=== PATIENT | female | born 1935 | race Caucasian/White ===

== ENCOUNTER 2022-10-11 10:00 | Outpatient (RCR) | payer MEDICARE, BC, SELFPAY ==
--- NOTE | 2022-08-06 09:50 | PT.OPEX ---
Please sign PT evaluation completed on 08/06/22. Thank you. PT [place] Out[facility] Eval PT [facility] Outpatient Eval Start: 08/05/22 17:10 Freq: Status: Active Protocol: Document 08/06/22 07:18 TLQ (Rec: 08/06/22 08:35 TLQ [id number]) E-signed By Nae Castro DPT Physical Therapy Outpatient Evaluation Insurance Information Recert Due Date 10/05/22 Insurance Name Medicare B,Blue Cross/Blue [employer] Medical Diagnosis Strain of R hip Tendinitis involving R hip abductors Treating Diagnosis Pain in R hip (M25.551) Muscle weakness (M62.81) Referring MD Barber Subjective Subjective Patient reports she has pain in the side of her R hip that goes around to the back of her hip. Began a couple days ago, denies any specific injury. States she went on a 1.5-2 mile walk last weekend to prepare for her upcoming vacation. Has past hx with back pain due to compression fractures. Her hip seems to feel better after she's been moving around, hurts more after she's been sitting for a prolonged time. Hurts during stairs if it has been bothering her, but does not initiate the pain. Notices the pain if she wakes up during the night, likes to sleep on her R side but hasn't noticed a difference in symptoms between which side she sleeps on. Has tried using a heating pad and Tylenol to help manage her symptoms. Leaves for a 10 -day trip to [facility] next Tuesday, is concerned about her mobility while she's there. In her free time she walking with her walking sticks. Attends a balance class each week. Pain Comments 3/10 at best 8/10 at worst, following sitting for prolonged periods of time gets sudden sharp pain in posterior R hip when she initiates movement, dull ache down lateral thigh on R Date of Last Physician Visit 08/05/22 Current Work Status Retired Preferred Name Brandy Precautions Treatment Precautions/Contraindications order for HEP as patient leaves for [facility] on 08/13/22 Therapy Limitations/Systems Review Not Limited Objective Range of Motion Hip: flexion - L 112, R 124 abduction - WFL bilaterally, pain on R with active abduction external rotation - L 30, R 29 internal rotation - L 30, R 24 Strength Hip: flexion - L 4-/5, R 3+/5 abduction - L 4+/5, R 4/5 sharp pain adduction - L 4/5, R 4/5 external rotation - L 3+/5, R 3/5 internal rotation - L 4+/5, R 4-/5 pain Palpation TTP - R TFL/ITB, R piriformis, R quadratus femoris, mild tenderness at R ischial tuberosity/proximal hamstring Non-tender with palpation of greater trochanter on R Joint mobility - hypomobile posterior glide of R hip Balance & Gait Balance - SLS <1 second on L and R 5xSTS - 14 seconds with hands on knees Gait - antalgic gait, ambulates with walking stick in L hand using step through pattern Posture Symmetrical LE alignment with palpation of ASIS and supine- sit assessment Other/Pertinent Objective RITO - + bilaterally for muscle tightness, no increase in pain on R scour - negative bilaterally Assessment Assessment/Impression Patient is an 87 year old female who presents to physical therapy with acute non-traumatic R hip pain. Upon examination she had decreased hip strength bilaterally, R>L . Hip pain was reproduced with strength testing of the R hip abductors and internal rotators. She was tender with palpation of TFL, IT band, piriformis, and quadratus femoris on the R. Given her report of increased physical activity over the weekend and objective findings during her initial examination, the patient is likely to have a muscle strain of her R hip. Special tests of the hip for labral or skeletal pathology were negative at this time. Patient ambulates with walking stick in her L hand, had impaired single leg balance and transitional strength/ balance indicated by time to complete 5x sit to stand test. At this visit the patient was instructed in pain-free stretches, hip strengthening exercises, and soft tissue massage using a tennis ball to allow her to prevent flare in symptoms during her upcoming trip to [facility]. Given her pain with walking, decreased hip strength, and impaired balance, she will benefit from skilled interventions for safe pain-free mobility. Primary Functional Limitations R hip pain, bilateral hip muscle weakness, pain with walking, pain in hip after prolonged sitting, pain with active R hip abduction Plan of Care Rehabilitation Potential Good Physical Therapy Goals created 08/06/22: STG - Patient will improve gross hip strength to 4/5 to demonstrate positive response to strengthening interventions in 4 weeks. STG - Patient will decrease subjective report of pain from 8/10 to 4/10 to be able to walk up to a half mile in 4 weeks. LTG - Patient will decrease time to complete 5xSTS from 14 seconds to 12 seconds for improved functional LE strength and balance needed for safe mobility in 8 weeks. LTG - Gross hip strength will increase to 5/5 for improved functional strength needed for walking and stair navigation in 8 weeks. LTG - Patient will adhere to HEP to manage symptoms IND at home in 8 weeks. Treatment Plan/Direct Interventions Gait Training,Joint Mobilization,Manual Therapy, Therapeutic Activities, Therapeutic Exercises Frequency/Duration 1x/week 6-8 visits Patient Will Be Discharged From Therapy Completion of LTG(s),Skills Plateau,Independent w/HEP, Independently Progressing Evaluation Billing Untimed Code Treatment Minutes 35 Complexity Low Certification Information Initial Certification Date 08/06/22 Ending Certification Date 10/05/22 Provider Signature Shows Agreement With POC & Medical Necessity Physician Comment/Change Comment or Changes Physician NPI Number #
== END 2022-11-26 09:59 | disposition home or self-care (01) ==
PROVIDERS: Visit Provider Orthopaedic Surgery Sports Medicine
DX: S76.011A Strain of muscle, fascia and tendon of right hip, initial encounter (principal); Z51.89 Encounter for other specified aftercare
CPT/HCPCS: 97110; 97140; 97161

== ENCOUNTER 2022-10-20 09:59 | Outpatient (CLI) | payer MEDICARE, BC, SELFPAY ==
--- NOTE | 2022-10-20 10:15 | MR_ITS ---
[address] [address] Phone:?[phone] Fax:?[phone] Referring Physician Information: Nixon Barber M.D. [address] [facility] [address] Phone:?[phone] Fax:?[phone] Patient:Donald Lee D.O.B:?1935 Sex:?Female Phone:?[phone] [facility] MRN:?[id number] Exam Date:?10/20/2022 ? EXAM: MRI of the RIGHT HIP, without contrast CLINICAL HISTORY: Right hip pain. Evaluate for right hip abductor tendon tear. COMPARISONS: None available. TECHNICAL: MR sequences of the right hip: Axials: PD FS Axial oblique: PD Coronals: PD, T2 Coronal pelvis: T1 and STIR Sagittals: PD and T2 CONTRAST: None SEDATION: None FINDINGS: Pelvis osseous structures: Sacrum: No fracture or destructive osseous lesion is seen of the imaged portions of the sacrum. Sacroiliac joints: No convincing evidence of sacroiliitis of the imaged portions of the sacroiliac joints. Pubic rami: Unremarkable. Symphysis pubis: There is no evidence of acute osteitis pubis. Labrum: There is fraying and ill-defined tearing of the entire labrum. Hip joint: Physiologic amount of joint fluid. There is extensive full-thickness chondral loss at the chondral labral junction posterosuperiorly with associated degenerative subchondral cystic changes and over the superomedial portion of the acetabulum with associated degenerative subchondral cystic changes. Chondral loss is also suspected over the right femoral head although it must be noted that the cartilage is not optimally evaluated directly by this nonarthrogram study. Proximal femur: No fracture, osseous stress injury, avascular necrosis, or suspicious bone marrow signal abnormality is seen. No convincing femoral cam morphology. Right femoral alpha angle measures 46 degrees at the 3 clock position anteriorly measured on axial oblique series 6 image 18. Acetabulum: Coverage: Right lateral center edge (CE) angle measures approximately 41? (normal 25?-39?) correcting for coronal pelvic tilt, midline coronal series 5 image 13. Ligamentum teres: Unremarkable. Myotendinous structures: Gluteus abductors: The gluteus minimus and medius tendons are unremarkable. Rectus abdominis-adductor longus aponeurosis, adductors, and rectus abdominis: Unremarkable. Hamstrings: Chronic partial tearing of the bilateral conjoined hamstring tendons at the ischial tuberosity attachments is bilaterally symmetric and of uncertain clinical significance. Flexors: The iliopsoas and rectus femoris tendons are intact. Quadratus femoris muscle: Marked atrophy. No edema-like signal. The right quadratus femoris space measures 4 mm. Gluteal aponeurotic fascia and IT band: Unremarkable. Pelvic soft tissues: There is sigmoid diverticulosis without evidence of diverticulitis on the images provided. IMPRESSION: 1. Substantial right hip osteoarthritic changes include extensive full-thickness chondral loss at the chondral labral junction posterosuperiorly and over the superomedial portion of the acetabulum with associated degenerative subchondral cystic changes and fraying/ill-defined tearing of the entire labrum. Chondral loss is also suspected over the right femoral head although it must be noted that the cartilage is not optimally evaluated directly by this nonarthrogram study. Right acetabular overcoverage. 2. A markedly decreased right quadratus femoris space can be associated with ischiofemoral impingement but is of uncertain clinical significance in this case given the lack of edema-like signal within and marked atrophy of the right quadratus femoris muscle. 3. Chronic partial tearing of the bilateral conjoined hamstring tendons at the ischial tuberosity attachments is bilaterally symmetric and of uncertain clinical significance. 4. Sigmoid diverticulosis without evidence of diverticulitis. 5. No fracture or osseous stress injury of the right hip. Intact abductor tendons. RCB Electronically signed on 10/22/2022 6:07:00 AM by Osiel Fuentes M.D.
== END 2022-10-20 10:00 | disposition home or self-care (01) ==
PROVIDERS: PCP Family Medicine; Visit Provider Orthopaedic Surgery Sports Medicine
DX: M25.551 Pain in right hip (principal); M16.9 Osteoarthritis of hip, unspecified; K57.31 Diverticulosis of large intestine without perforation or abscess with bleeding; S73.102A Unspecified sprain of left hip, initial encounter
CPT/HCPCS: 73721

== ENCOUNTER 2022-11-04 10:00 | Outpatient (CLI) | payer MEDICARE, BC, SELFPAY ==
--- NOTE | 2022-11-04 10:15 | CRLHL7_ITS ---
For Patients: As a result of the Century Cures Act, medical imaging exams and procedure reports are released immediately into your electronic medical record. You may view this report before your referring provider. If you have questions, please contact your health care provider. Indication: Right hip pain. Procedure : Informed consent was obtained. The site was marked. Time-out was performed. The skin of the right hip was cleansed with ChloraPrep. A sterile drape was placed. 8 cc of 1 percent lidocaine was administered for superficial anesthesia. Subsequently a 22 gauge spinal needle was introduced into the right hip joint under intermittent fluoroscopic guidance. Subsequently 7 cc 1 percent lidocaine and 2 cc 40 milligrams/cc Depo-Medrol injected into the joint. The needle was removed and hemostasis achieved with direct pressure. A dressing was placed. The patient tolerated the procedure well without immediate complication. Total fluoroscopy time 11 seconds. Impression: Successful fluoroscopically guided right hip injection with 80 milligrams Depo-Medrol. Dictated by Dwain Leon MD @ 11/04/2022 11:23:10 AM (Electronically Signed)
== END 2022-11-04 10:01 | disposition home or self-care (01) ==
LOC: RAD 10:00
PROVIDERS: PCP Family Medicine; Visit Provider Orthopaedic Surgery Sports Medicine
DX: M25.551 Pain in right hip (principal); M16.11 Unilateral primary osteoarthritis, right hip; M25.851 Other specified joint disorders, right hip
CPT/HCPCS: 20610; 77002; J1030; Q9966

== ENCOUNTER 2022-12-07 07:44 | Outpatient (CLI) | payer MEDICARE, BC, SELFPAY | END 2022-12-07 07:45 | disposition home or self-care (01) | LOC: INJ CL 07:46 | PROVIDERS: PCP Family Medicine; Visit Provider Family Medicine | DX: M54.16 Radiculopathy, lumbar region (principal); M51.36 Other intervertebral disc degeneration, lumbar region | CPT/HCPCS: 62323; J0702; Q9966 ==

== ENCOUNTER 2023-01-11 07:06 | Outpatient (CLI) | payer MEDICARE, BC, SELFPAY | END 2023-01-11 07:07 | disposition home or self-care (01) | LOC: INJ CL 07:07 | PROVIDERS: PCP Family Medicine; Visit Provider Family Medicine | DX: M54.16 Radiculopathy, lumbar region (principal); M48.05 Spinal stenosis, thoracolumbar region; M51.34 Other intervertebral disc degeneration, thoracic region | CPT/HCPCS: 62323; J0702; Q9966 ==

== ENCOUNTER 2023-03-31 08:45 | Outpatient (RCR) | payer MEDICARE, BC, SELFPAY | END 2023-05-25 09:24 | disposition home or self-care (01) | PROVIDERS: PCP Family Medicine; Visit Provider Family Medicine | DX: M54.50 Low back pain, unspecified (principal); M79.604 Pain in right leg; M51.34 Other intervertebral disc degeneration, thoracic region; R29.3 Abnormal posture; M62.81 Muscle weakness (generalized); Z51.89 Encounter for other specified aftercare | CPT/HCPCS: 97110; 97140; 97161 ==

== ENCOUNTER 2023-07-06 09:42 | Outpatient (CLI) | payer MEDICARE, BC, SELFPAY | END 2023-07-06 09:43 | disposition home or self-care (01) | LOC: CT 09:43 | PROVIDERS: PCP Family Medicine; Visit Provider Orthopaedic Surgery Sports Medicine | DX: M19.011 Primary osteoarthritis, right shoulder (principal); Z01.818 Encounter for other preprocedural examination | CPT/HCPCS: 73200 ==

== ENCOUNTER 2023-08-10 07:09 | Day surgery (SDC) | payer MEDICARE, BC, SELFPAY ==
[2023-08-10] VITALS (24 sets, daily range): BP systolic 113–157; BP diastolic 61–92; PULSE 52–97; RESP 15–18; TEMP 35.8–36.6; O2SAT 92–99; BMI 22.6
[2023-08-10] MEDS: LACTATED RINGERS 1000 ML 1,000 ML 100 ML IV (07:15)
--- NOTE | 2023-08-10 07:40 | W.PM.H&PU ---
History & Physical Update History & Physical Update H&P Reviewed and patient assessed: No changes noted
--- NOTE | 2023-08-10 07:44 | CRLHL7_ITS ---
For Patients: As a result of the Cures Act, medical imaging exams and procedure reports are released immediately into your electronic medical record. You may view this report before your referring provider. If you have questions, please contact your health care provider. Indication: POST OP Technique: Two views right shoulder Findings/Impression: Hardware from a right total shoulder arthroplasty is in satisfactory position. Bone alignment is normal. No sign of acute fracture. Postop changes are within normal limits. Dictated by Dwain Leon MD @ 08/10/2023 12:36:46 PM (Electronically Signed)
[2023-08-10] MEDS: ACETAMINOPHEN 500 MG TABLET 1000 MG PO ×3 (08:08→20:44)
[2023-08-10] MEDS: CELECOXIB 200 MG CAPSULE PO (08:08)
[2023-08-10] MEDS: OXYCODONE (CR) 10 MG TAB.ER.12H PO (08:09)
[2023-08-10] MEDS: SODIUM CHLORIDE 0.9 % (FLUSH) 10 ML SYRINGE IVF (08:10)
[2023-08-10] MEDS: fentaNYL 100 MCG/2 ML inj IVP (08:43)
[2023-08-10] MEDS: MIDAZOLAM HCL 1 MG/ML inj IVP (08:43)
--- NOTE | 2023-08-10 08:47 | P.NB_ITS ---
Nerve Block Nerve Block Time Seen by Provider: 08:45 Date Seen: 08/10/23 Type of block requested by surgeon for post-operative analgesia: supraclavicular Side: right Time out performed: Yes Verification of patient name: Yes Verification of date of : Yes Site marking: site marked Name of person performing procedure: Walker Continuous monitoring Was continuous monitoring of O2 sat, B/P, monitoring engineer, recorded every 15 minutes?: Yes Procedure Checklist: sterile prep, needles and gloves Ultrasound guided. Images saved: Yes Medications given in 5ml increments after negative aspiration: Marcaine %: 0.25 mL: 10 Needle gauge: 22 and Exparel mL: 7 Needle gauge: 22 Patient tolerated procedure well: Yes Block Charges Block Charge (with Pro Fee): Brachial Plexus Use of Ultrasound Machine for Block: Yes- US Guidance/pain block
--- NOTE | 2023-08-10 08:48 | SUR.PREOP ---
TIME?OUT:?0843 PT/RN/MDA?VERIFICATION?OF?SURGICAL?SITE,?PROCEDURE,?AND?CONSENT OBTAINED?PRIOR?TO?INVASIVE?PROCEDURE.
--- NOTE | 2023-08-10 08:48 | W.ANESCHARGE ---
Anesthesia Charges Start Date/Time Anesthesia Start Date: 08/10/23 Anesthesia Start Time: 08:53 Stop Date/Time Anesthesia Stop Date: 08/10/23 Anesthesia Stop Time: 11:30 Summary Extremes of Age - Over 70 or under 1: MDA
[2023-08-10] MEDS: CEFAZOLIN 2 GM in 0.9 % SODIUM CHLORIDE Mini-bag 100 ML IVPB (09:10)
--- NOTE | 2023-08-10 09:43 | SUR.OPER ---
PATIENT QUESTIONS ANSWERED SATISFACTORILY PREOPERATIVELY. PATIENT BROUGHT TO OR #3 PER CART FOLLOWING THE BLOCK. Patient positioned supine on OR #3 bed for the intubation.? Perioperative team wrapped the?left arm in a neutral position on the pt. abdomen with the drawsheet.? Right arm elevated on an IV pole in a padded strap. Final approval of positioning by surgeon.
--- NOTE | 2023-08-10 11:30 | W.ANESCHARGE ---
Anesthesia Charges Start Date/Time Anesthesia Start Date: 08/10/23 Anesthesia Start Time: 08:53 Stop Date/Time Anesthesia Stop Date: 08/10/23 Anesthesia Stop Time: 11:30 Summary Extremes of Age - Over 70 or under 1: NUTRITION SERVICES ASSISTANT
--- NOTE | 2023-08-10 12:15 | SUR.PHASEI ---
patient met discharge criteria per anesthesia
--- NOTE | 2023-08-10 12:19 | P.ORPRC_ITS ---
Procedure Note Date of procedure: 08/10/23 Procedure: PREOPERATIVE DIAGNOSIS: 1. Right shoulder osteoarthrosis, primary, severe 2. Right long head of the biceps tendinopathy and tenosynovitis POSTOPERATIVE DIAGNOSIS: 1. Right shoulder osteoarthrosis, primary, severe with fair to poor cuff tissue quality 2. Right long head of the biceps tendinopathy and tenosynovitis PROCEDURE: 1. Right reverse shoulder arthroplasty. 2. Right long head of biceps open tenodesis SURGEON: Nixon Barber MD. COMMUNICATIONS MAINTAINER: Yung Harrington PA-C; Nevaeh Beltran PA-C - Of note, a skilled executive assistant was critical for this case to aid in patient positioning, tissue retraction, limb manipulation/positioning, retraction for glenoid exposure, which was challenging, awareness and protection of critical structures, and closure. ANESTHESIA: General plus supraclavicular block IMPLANTS: DJ0 surgical Altivate humeral stem size 10 small shell, short with P2 porous coating vitamin E neutral poly small socket insert RSP glenoid base plate P2 porous coating with 3 perimeter locking screws 32 neutral glenosphere with retaining screw COMPLICATIONS: None evident INDICATIONS: The patient is a pleasant 88-year-old female who has experienced severe right shoulder pain and difficulty with use. Workup included imaging which revealed severe osteoarthrosis along with concern for rotator cuff quality. Physical exam was consistent with associated pain. Given the deformity, the dysfunction, and the pain, and failure of nonoperative management, recommendation was made for surgery. DESCRIPTION OF PROCEDURE: Following a thorough discussion of risks, benefits, and alternatives, consent was obtained and the left shoulder was marked. The patient was brought to the operating room and placed supine on the operating table. Induction of anesthesia was undertaken. 1 g IV Ancef and 1 g tranexamic acid was administered within 1 hr of incision preoperatively. Appropriate time-out was performed identifying proper patient, site, and procedure. The operative extremity was prepped and draped in the appropriate sterile fashion using ChloraPrep after the patient was positioned in the lazy beach chair position with head in neutral alignment and all bony prominences well padded. A longitudinal incision was made for deltopectoral approach. Deltoid was retracted laterally. Cephalic vein was identified and retracted laterally as well. The vein was eventually ligated during the procedure. The clavipectoral fascia was identified and divided longitudinally staying lateral to the conjoined tendon / coracoid. The conjoined tendon was protected with a blunt Hohmann. The long head of the biceps tendon was identified and the bicipital sheath released. The upper 1/3 of the pectoralis major was also released from its insertion. The long head of the biceps was tenodesed to the pectoralis m ajor tendon. The remaining proximal tendon tissue was excised. The rotator cuff was inspected and found to have good integrity with the subscapularis but fair integrity with a supraspinatus], and a decision for a reverse shoulder arthroplasty was confirmed. The long head of biceps, of note, was significant flattened, thickened, with abundant tenosynovitis. A subscapularis cuff of tissue was left via tenotomy for later repair with the remaining subscapularis released in a subperiosteal fashion with the Bovie. This was tagged for later repair. The 3 sisters were cauterized. The upper subscapularis was released from the capsule with a curved Best scissors towards the glenoid. The inferior subscapularis was divided from the capsular tissue on its caudal surface with particular caution for the axillary nerve. This was palpated anterior to the subscapularis both prior to and near the finish of the case. Inferior humeral head osteophytes were excised with caution taken throughout the case with regards to the axillary nerve. The humerus was dislocated, and humeral head cut completed. Then a protector plate was applied. We turned our attention to the glenoid. The humerus was retracted posteriorly. The subscap was protected anteriorly and the labrum/long head biceps origin was excised circumferentially. The capsule was released along the anterior and inferior portions of the glenoid cautiously with a Tucker elevator being careful not to penetrate deep. The glenoid had appropriate exposure, and was prepared with the cannulated system with a target of approximately 5-10? of inferior tilt and neutral anteversion (patient had 7 ? of retroversion initially). [Utilizing the match Point 3D printed guide, the guide pin was placed. The 3D printed jig removed and after placing the guide pin, the tap was placed followed by the glenoid reaming. The real base plate was opened, and inserted, and excellent compression/purchase was achieved with the central screw. Peripheral screws were then drilled, measured, and placed. The glenosphere was then placed consistent with the preoperative plan utilizing the above noted glenosphere. After securing the glenosphere with the locking, torque limited screw, attention was turned back to the humerus. A canal finder was placed followed by various reamers by hand. The real humeral stem was then opened and inserted with excellent metaphyseal fit and stability. Trial poly was placed and the shoulder reduced. Excellent reduction and stability achieved with appropriate tension on the conjoined tendon. At this stage, trial implants were removed, and the real implants inserted and the shoulder reduced. A 3 minute Betadine soak was performed followed by a thorough irrigation with normal saline. Subscapularis was repaired with #1 PDS to the cuff of tissue on the lesser tuberosity. Excellent reapproximation of tissue achieved. Hemostasis was found to be appropriate. The deltopectoral interval was reapproximated with 0 Vicryl, subcutaneous and subcuticular closure was then performed with number 2-0 Vicryl and 4-0 Monocryl, respectively. A skilled executive assistant was critical for this case to aid in patient positioning, tissue retraction, limb manipulation/positioning, retraction for glenoid exposure, which was challenging, awareness and protection of critical structures, and closure. PLAN: 1. Sling at all times for the operative upper extremity. 2. AROM of elbow, forearm, wrist, and digits as tolerated. 3. PT/OT consults for education and assistance. 4. Social consult for discharge planning. 5. 23 hr perioperative antibiotics. 6. Early ambulation, and SCDs for DVT prophylaxis. 7. Admit to the hospital for the above 8. Analgesics p.r.n.
--- NOTE | 2023-08-10 13:43 | P.IMCN_ITS ---
Date of Consult Patient: Iván Patient Consult date: 08/10/23 Primary Care Provider: Akila Cerda MD Consult Narrative Reason for consult: Med Narrative: Areli Lee is a 88 year old female who presented to the hospital today for an elective right reverse total shoulder. There were no surgical or anesthetic complications noted during procedure. Patient's H&P reviewed, PCP is Dr. Killian. Past medical history significant for: Essential hypertension, hypothyroidism, allergic rhinitis History of blood clots: No Postoperative plan: Home with , multiple family members close by. Patient is notably a retired RN. Review of Systems Status of ROS: Reports: 10 or more systems reviewed and unremarkable except as noted in History and below [facility] Medical History (Updated 08/10/23 @ 14:13 by Callie Sanchez MD) Sigmoid diverticulosis ?K57.30 - Diverticulosis of large intestine without perforation or abscess without bleeding (ICD-10) Arthritis ?M19.90 - Unspecified osteoarthritis, unspecified site (ICD-10) GERD (gastroesophageal reflux disease) ?K21.9 - Gastro-esophageal reflux disease without esophagitis (ICD-10) Atrial fibrillation ?I48.91 - Unspecified atrial fibrillation (ICD-10) Hypothyroid ?E03.9 - Hypothyroidism, unspecified (ICD-10) Surgical History (Updated 08/10/23 @ 14:16 by Callie Sanchez MD) History of ankle surgery (12/04/92) ?Z98.890 - Other specified postprocedural states (ICD-10) 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) ?Z96.651 - Presence of right artificial knee joint (ICD-10) S/P left unicompartmental knee replacement (08/07/13) ?Z96.652 - Presence of left artificial knee joint (ICD-10) History of surgery on lower extremity (12/04/92) ?Z98.890 - Other specified postprocedural states (ICD-10) 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) ?Z96.612 - Presence of left artificial shoulder joint (ICD-10) Family History Mother Breast cancer Bleeding tendency Father Heart problem Maternal Grandmother Stroke High blood pressure Social History (Reviewed 10/26/22 @ 09:06 by Margy Horn ~ [employer] WORKER, [employer]STRUCTION WORKER) What is your current living situation?: I presently have a place to live In the past 12 months, utilities in danger of being shut off: no In the past 12 mos, have been you worried that your food would run out before you had money to buy more?: never true In the past 12 mos, the food you bought just didn't last and you didn't have money to buy more?: never true Smoking Status: Never smoker Do you use any of these nicotine containing products: None Second hand tobacco smoke exposure: No How often do you have a drink containing alcohol: 4 or more times a week Alcohol type: wine How many standard drinks containing alcohol do you have on a typical day: 1 or 2 How often do you have six or more drinks on one occasion: Never AUDIT-C Alcohol total score: 4 Non-prescribed substance use: denies use How often does anyone, including family, friends and others, physically hurt you : never How often does anyone, including family, friends and others, insult or talk down to you: never How often does anyone, including family, friends and others, threaten you with harm: never How often does anyone, including family, friends and others, scream or curse at you: never Meds Home Medications and Allergies Home Medications Medication Instructions Recorded Confirmed Type cetirizine 10 mg tablet 10 mg PO DAILY PRN 08/05/22 08/10/23 History levothyroxine 75 mcg tablet 75 mcg PO DAILY 08/05/22 08/10/23 History lisinopril 5 mg tablet 5 mg PO HS 08/05/22 08/10/23 History melatonin 5 mg capsule 5 mg PO HS 08/05/22 08/10/23 History metoprolol tartrate 50 mg tablet 50 mg PO BID 08/05/22 08/10/23 History multivitamin 1 tab PO DAILY 08/05/22 08/10/23 History naproxen 250 mg tablet 250 mg PO BID PRN 04/12/23 08/10/23 History omega 3-uob-sjg-fish oil 60 mg-90 1 cap PO BID 04/12/23 08/10/23 History mg-500 mg capsule (Fish Oil) Allergies Allergy/AdvReac Type Severity Reaction Status Date / Time cat dander Allergy Verified 08/10/23 07:32 perfume Allergy Verified 08/10/23 07:32 Exam Narrative: Exam Narrative: GEN: Alert and oriented, nontoxic and appears younger than stated age HEENT: EOMIs bilaterally, no scleral icterus CV: RRR, No concerning murmurs, rubs, or gallops R: LCTA bilaterally without concerning wheezing, air movement adequate Ext: wearing sling on RUE Skin: No concerning skin lesions or rashes on exposed skin Neuro: No focal deficits Psych: Appropriate Const: Vital Signs, click to edit/add: Vital Signs - 24 hr 08/10/23 08:25 08/10/23 08:43 08/10/23 08:45 Temperature 97.7 F Pulse Rate 71 66 60 Pulse Rate [Left P ulse Oximeter] Respiratory Rate 16 16 16 Blood Pressure 138/75 125/70 113/61 Blood Pressure [Le ft Arm] Pulse Oximetry 96 99 99 Oxygen Delivery Tn thod Room Air Nasal Cannula Nasal Cannula Oxygen Flow Rate 2 2 08/10/23 11:28 08/10/23 11:30 08/10/23 11:35 Temperature 97 F L 97 F L 97 F L Pulse Rate 58 L 54 L 56 L Pulse Rate [Left P ulse Oximeter] Respiratory Rate 16 16 17 Blood Pressure 149/88 H 157/81 H 151/82 H Blood Pressure [Le ft Arm] Pulse Oximetry 97 97 94 Oxygen Delivery Me thod Room Air Room Air Room Air Oxygen Flow Rate 08/10/23 11:40 08/10/23 11:45 08/10/23 11:50 Temperature 97 F L 97 F L 97 F L Pulse Rate 61 56 L 66 Pulse Rate [Left P ulse Oximeter] Respiratory Rate 15 16 17 Blood Pressure 133/92 H 145/77 H 153/78 H Blood Pressure [Le ft Arm] Pulse Oximetry 93 94 93 Oxygen Delivery Me thod Room Air Room Air Room Air Oxygen Flow Rate 08/10/23 11:55 08/10/23 12:00 08/10/23 12:10 Temperature 97 F L 97.1 F L 96.5 F L Pulse Rate 57 L 56 L 62 Pulse Rate [Left P ulse Oximeter] Respiratory Rate 16 16 16 Blood Pressure 145/72 H 152/85 H Blood Pressure [Le ft Arm] 129/87 Pulse Oximetry 96 94 Oxygen Delivery Me thod Room Air Room Air Room Air Oxygen Flow Rate 08/10/23 12:15 08/10/23 12:30 08/10/23 12:45 Temperature 96.5 F L 96.4 F L 96.4 F L Pulse Rate Pulse Rate [Left P ulse Oximeter] 64 52 L 53 L Respiratory Rate 16 16 16 Blood Pressure Blood Pressure [Le ft Arm] 138/63 140/69 H 149/71 H Pulse Oximetry 94 94 94 Oxygen Delivery Me thod Room Air Room Air Room Air Oxygen Flow Rate 08/10/23 13:00 08/10/23 13:30 Temperature 96.7 F L 96.4 F L Pulse Rate Pulse Rate [Left P ulse Oximeter] 57 L 60 Respiratory Rate 16 16 Blood Pressure Blood Pressure [Le ft Arm] 123/67 129/65 Pulse Oximetry 95 93 Oxygen Delivery Me thod Room Air Room Air Oxygen Flow Rate Assessment and Plan Assessment and plan (1) History of reverse total replacement of right shoulder joint: Problem comment: - 08/10Elisabeth Status: Acute Plan - pain management and prophylaxis per orthopedic surgery team - continue home medications for comorbidities - anticipate routine postoperative course
--- NOTE | 2023-08-10 13:49 | PC.NURSE ---
Addendum entered by Lacey Roth RN 08/10/23 15:04: Patient up to bathroom with staff assist, voiding without problem, denies nausea or lightheadedness with movement. Original Note: Shift Summary: Patient arrived to floor around noon. Vitals have been stable, o2 sat >90% on RA. Has had applesauce and tolerated well but not ready to order meal yet. Lung sounds clear, dressing over right shoulder dry and intact with ice and sling. Denies pain or nausea.
[2023-08-10] MEDS: CEFAZOLIN 1 GM in 0.9 % SODIUM CHLORIDE Mini-bag 100 ML IVPB ×2 (13:58→22:38)
[2023-08-10] MEDS: lisinopriL 5 MG TABLET PO (20:45)
[2023-08-10] MEDS: MELATONIN 3 MG TABLET PO (20:45)
[2023-08-10] MEDS: SENNOSIDES 1 TAB TABLET 2 TAB PO (20:46)
[2023-08-10] MEDS: CETIRIZINE HCL 10 MG TABLET PO (20:46)
[2023-08-10] MEDS: METOPROLOL TARTRATE 50 MG TABLET PO (20:46)
--- NOTE | 2023-08-10 22:31 | PC.NURSE ---
VSS, RA. Pain ~1-2- ice pack, elevation, pt comfortable. Tolerating regular diet, 100% of dinner- ~ 1000 cc fluids in. Right shoulder in sling- CMS intact. Up to bathroom 1 assist. Voided x3- ~700 cc out. Last BM 08/09 per pt. PIV in left arm- SL'd b/t IV abx. Spouse visited this evening. Will continue to monitor, follow POC, and keep pt and family updated. Nia Larkin RN
[2023-08-11 03:00] VITALS: BP 116/72; PULSE 74; RESP 16; TEMP 36.3; O2SAT 94
--- NOTE | 2023-08-11 05:12 | PC.NURSE ---
[id number] Pt slept well entire night. no new concerns
--- NOTE | 2023-08-11 05:14 | PC.NURSE ---
[id number] Pt slept well between cares, ice to R shoulder throughout night. No pain noted at this time, Pt able to wiggle finger to R hand, still states numbness throughout R arm. R radial pulse present, cap refills <3 seconds, hand warm to touch. ambulating independently to BR, voiding well, tolerating PO intake, No N/V. Dressing to R shoulder C/D/I arm in sling elevated on pillows entire shift.
[2023-08-11] MEDS: CEFAZOLIN 1 GM in 0.9 % SODIUM CHLORIDE Mini-bag 100 ML IVPB (06:35)
[2023-08-11] MEDS: LEVOTHYROXINE 75 MCG TABLET PO (06:35)
[2023-08-11 06:45] LABS: Hematocrit 34.5 % (33.0-51.0); Hemoglobin* 11.5 gm/dL (12.0-16.0); Mean Corpuscular HGB Conc 33 gm/dL (32-36); Mean Corpuscular Hemoglobin 31 pg (26-34); Mean Corpuscular Volume 93 fL (80-100); Platelet Count* 234 K/uL (140-440)
[2023-08-11 07:00] VITALS: BP 130/72; PULSE 76; RESP 18; TEMP 36.9; O2SAT 96
[2023-08-11 07:00] LABS: Potassium* 4.7 mmol/L (3.6-5.1); Sodium* 129 mmol/L (135-149)
[2023-08-11 07:03] LABS: Blood Urea Nitrogen* 23 mg/dL (7-30); Creatinine* 0.9 mg/dL (0.5-1.5); Est. Creatinine Clearance* 33.41; Estimated Glomerular Filt Rate 62 ml/min
[2023-08-11 07:10] LABS: Slide Review Reflex No
[2023-08-11] MEDS: ACETAMINOPHEN 500 MG TABLET 1000 MG PO (08:35)
[2023-08-11] MEDS: METOPROLOL TARTRATE 50 MG TABLET PO (08:36)
[2023-08-11] MEDS: MULTIVITAMIN/MINERALS 1 TABLET 1 TAB PO (08:37)
[2023-08-11] MEDS: SENNOSIDES 1 TAB TABLET 2 TAB PO (08:42)
--- NOTE | 2023-08-11 12:52 | PC.NURSE ---
VSS AND AFEBRILE. RERPORTS NO PAIN AND ONLY RECEIVING SCHEDULED TYLENOL. RIGHT ARM IN SLING. UP WITH SBA AND TOLERATING ACTIVITY WELL. DRESSING CDI. TOLERATING REGULAR DIET WITH NO C/O N/V. REVIEWED DC INSTRUCTIONS WITH PATIENT AND HER . SALINE LOCK DC'D. PATIENT DC'D HOME WITH .
--- NOTE | 2023-08-11 15:43 | PM.ORPN ---
Subjective Subjective Date Seen: 08/11/23 Principal diagnosis: Status postop day 1 right reverse total shoulder arthroplasty Interval history: Patient reports doing well. No acute events over night. Pain managed with scheduled and PRN medications, ice. DVT prophylaxis: Bilateral knee high Bryce stockings, SCDs, walking. Denies fevers, chills, aches, N/V, CP, SOB/MARROQUIN, or lightheadedness. Ortho Exam Narrative Exam Narrative: -Patient appears comfortable in recliner; no apparent acute distress -Alert and oriented times 3 -Operative shoulder mildly swollen; soft, supple tissues; no obvious erythema. Ecchymosis minimal. Warmth appropriate -Surgical dressing clean, dry, intact; no obvious drainage, no erythematous streaking peripheral to the bandage -Bilateral calves soft and supple; no significant swelling, edema, tenderness, erythema, discoloration, warmth, or palpable cords -2+ radial pulse, intact dermatomes and myotomes distally (5/5 strength) Const Vital Signs, click to edit/add: Vital Signs - 24 hr 08/10/23 16:00 08/10/23 17:00 08/10/23 18:00 Temperature 97.5 F L 97.9 F Pulse Rate [Left Pulse Oximeter] 67 84 97 Pulse Rate [Right Radial] Respiratory Rate 16 16 16 Blood Pressure [Left Arm] 139/83 143/75 H 148/86 H Pulse Oximetry 93 92 92 Oxygen Delivery Method Room Air Room Air Room Air Oxygen Flow Rate 08/10/23 19:00 08/10/23 23:00 08/11/23 03:00 Temperature 97.6 F 97.6 F 97.4 F L Pulse Rate [Left Pulse Oximeter] 94 76 Pulse Rate [Right Radial] 74 Respiratory Rate 16 18 16 Blood Pressure [Left Arm] 124/66 136/64 116/72 Pulse Oximetry 92 94 94 Oxygen Delivery Method Room Air Room Air Room Air Oxygen Flow Rate 0 0 08/11/23 07:00 08/11/23 07:00 Temperature 98.4 F Pulse Rate [Left Pulse Oximeter] 76 76 Pulse Rate [Right Radial] Respiratory Rate 18 18 Blood Pressure [Left Arm] 130/72 Pulse Oximetry 96 Oxygen Delivery Method Room Air Oxygen Flow Rate Assessment and Plan Assessment and plan (1) History of reverse total replacement of right shoulder joint: Problem details: - 08/10Elisabeth Status: Acute Plan - Complete 23 hour perioperative antibiotics. - PT/OT consult for education and assistance. - Social work consult for discharge planning - Prescribed analgesics as needed - DVT prophylaxis: Bilateral knee high Bryce Hose stockings and SCDs - Anticipation is for discharge to home with spouse and sister 08/11/2023 if the patient remains medically stable, pain is controlled, and they are safe with mobilization.
== END 2023-08-11 11:00 | disposition home or self-care (01) ==
LOC: OR 07:11 → MEDSURG 07:13
PROVIDERS: PCP Family Medicine; Visit Provider Orthopaedic Surgery Sports Medicine
PROC: 0RRJ0JZ Replacement of Right Shoulder Joint with Synthetic Substitute, Open Approach (ICD-10-PCS; CPT 23472; principal; 2023-08-10 08:30)
DX: M19.011 Primary osteoarthritis, right shoulder (principal); M75.21 Bicipital tendinitis, right shoulder; M65.811 Other synovitis and tenosynovitis, right shoulder; I10 Essential (primary) hypertension; G89.18 Other acute postprocedural pain
CPT/HCPCS: 23472; 23430; 01638; 36415; 64415; 73030; 76942; 82565; 84132; 84295; 84520; 85027; 97116; 97161; 97165; 97535; 99100; A9153; A9270; C1713; C1776; J0330; J0690; J1100; J2250; J2405; J2704; J3010; J7120; L3670

== ENCOUNTER 2023-11-22 09:00 | Outpatient (RCR) | payer MEDICARE, BC, SELFPAY ==
--- NOTE | 2023-08-05 16:21 | OT.OPGNE ---
OT Outpatient General/Neuro Eval OT Outpatient General/Neuro Eval Start: 08/04/23 15:55 Freq: Status: Active Protocol: Document 08/04/23 15:49 SMW (Rec: 08/05/23 16:11 SMW [id number]) E-signed By Fabiola Ty OT OT Outpatient Evaluation Details Type Type Eval Complexity Low Insurance Information Insurance Information Insurance Information Medicare B Outpatient History/Precautions Medical/Functional History Medical History Reviewed Yes Prior Level of Function/Mobility Lives independently with spouse. No AD. Current Condition Treatment Diagnosis M19.011 Social History Type of Dwelling Rambler Home Number of Stairs to Enter (Stairs) 3 Lives With: Spouse Physical Barriers in Home Environment Level, No Step,No Railing Employment Status Retired Oriented Patient Orientation Person,Place,Time,Situation Precautions General Precautions Pt. is left handed Assessment Assessment Assessment The patient is an 88 year old female referred to OT for a RTSA scheduled for 08/10/23. The patient lives with her spouse in rambler style style home. She is independent in all ADLS, IADLS and mobility. Today, she was educated in one handed dressing techniques, sling management, post op exercises. She asked appropriate questions and is an excellent candidate for surgery from a functional standpoint. Occupational Therapy Treatment Plan - OP Potential Rehabilitation Potential Excellent Set Goals Goals Set with Patient Yes Goals Goals Within 1 visit, the patient will be.. 1. educated on one handed techniques for dressing and bathing. goal met 2. sling donning and doffing and wearing schedule. goal met 3. educated on post op exercises and therapy progression. goal met. Progress met Treatment Plan Treatment Plan Evaluation,Therapeutic Exercise,Self-Care/Home Management Certification Certification I Certify That: Therapy Services Provided, Therapy Plan Established, Therapy Plan Reviewed Recertification Information Recertification Information Initial Certification Date 08/04/23 Provider Signature Shows Agreement With POC & Medical Necessity Physician Comment/Change Comment or Changes Physician NPI Number #
--- NOTE | 2023-08-24 13:03 | PT.OPEX ---
PT [place] Outpatient Eval PT [facility] Outpatient Eval Start: 08/24/23 08:55 Freq: Status: Active Protocol: Document 08/24/23 09:01 GUADALUPE (Rec: 08/24/23 12:57 GUADALUPE [id number]) E-signed By Mary Carmen Patel PT Physical Therapy Outpatient Evaluation Insurance Information Recert Due Date 11/21/23 Insurance Name Medicare B,Blue Cross/Blue Shield Medical Diagnosis RIGHT SHOULDER OA M19.01 RIGHT rTSA 08/10/23 Treating Diagnosis RIGHT SHOULDER PAIN M25.511 RIGHT SHOULDER WEAKNESS M62.81 Referring MD BEASLEY Subjective Subjective PATIENT REPORTS, I'VE BEEN USING THE ICE AND TYLENOL MOSTLY. I AM A BIT STRESSED B/ C WE ARE DOWNSIZING AND WE ARE SIFTING THROUGH A LOT OF BOXES. PATIENT FURTHER REPORTS BEING ABLE TO SLEEP IN HER OWN BED WITH A PILLOW TO SUPPORT THE ARM THE WAY GENNY OT INSTRUCTED. SHE IS HAVING NO ISSUES WITH BATHING OR DRESSING AND FOLLOWING HER INSTRUCTION TO WEAR SLING UNLESS BATHING OR DRESSING. Pain Comments -05/07 RIGHT SHOULDER Date of Last Physician Visit 08/18/23 Date of Surgery (If applicable) 08/10/23 Current Work Status Retired Occupation RETIRED RN Preferred Name JANINE Precautions Treatment Precautions/Contraindications OSTEOPOROSIS WITH ACTIVE COMPRESSION FX T10-L1 08/24/23: PROM FOR ONLY UNTIL 4 WEEKS THEN BEGIN AAROM AND WEAN OUT SLING AT 4-6 WEEKS Weight Bearing Status Non-Weight Bearing Therapy Limitations/Systems Review Not Limited Objective Other/Pertinent Objective CERVICAL ROM: WFL SHOULDER PROM IN SUPINE: Flexion: 110 Abduction: 68 Internal Rotation: @45 10 External Rotation: @45 NEUTRAL JOINT MOBILITY/PALPATION: MIN TENDERNESS ABOUT THE ANTERIOR TO LATERAL JOINT TX: ELBOW FLEX /EXT WRIST AROM PENDULUM ABD/ADD, FLEX/EXT GENTLE BACKWARD [place] GENTLE SCAP ENGAGEMENT PROM Assessment Assessment/Impression PATIENT IS AN [address] 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 SHE HAS LIMITED NEED FOR ICE OR RX PAIN MEDS CURRENTLY HER SYMPTOMS ARE WELL MANAGED WITH TYLENOL AND ALEVE. PATIENT HAS HAD ONE F/U WITH DEANNA THOMAS ON 08/18/23 NOTING GOOD HEALING AND CLEARED TO BEGIN FORMAL PHYSICAL THERAPY. SHE IS PROM ONLY UNTIL 4 WEEKS THEN WE CAN BEGIN AAROM AND START WEANING OUT OF SLING . WE DISCUSSED THE rTSA PRECAUTIONS TODAY, SYMPTOM MGMT, AND REVIEWED COMPENSATORY MVMTS FOR BASIC ADL'S. PATIENT IS APPROPRIATE FOR SKILLED PHYSICAL THERAPY FOR SYMPTOM MGMT, ROM AND STRENGTHENING PER PROTOCOL TO ALLOW HER A FULL RETURN TO PLOF. Primary Functional Limitations ADL'S IADL'S USE OF RIGHT UE Plan of Care Rehabilitation Potential Excellent Physical Therapy Goals IN 4-6 WEEKS: 1. PATIENT WILL DEMONSTRATE RIGHT SHOULD PROM TO WFL'S ( EXCEPT S'ER) 2. PATIENT WILL BE INDEPENDENT WITH ALL ADLS AND RETURN TO LIGHT CORRECTIONAL PROBATION OFFICER/COOKING 3. PATIENT WILL VERBALIZE A GOOD UNDERSTANDING OF HER PRECAUTIONS WELL SYMPTOM MGMT. 4. PATIENT WILL REPORT </2/10 PAIN DURING DAILY ACTIVITIES WELL TO ALLOW FOR PROGRESSION OF HER HEP. IN 10-12 WEEKS 1. PATIENT WILL DEMONSTRATE AROM TO WFL ALLOW INDEPENDENCE WITH DAILY ACTIVITIES/ PEER AND FAMILY CENTERED ACTIVITIES 2. PATIENT WILL DEMONSTRATE IMPROVED STRENGTH TO WFL TO RETURN TO HER PLOF. 3. PATIENT WILL DEMONSTRATE INDEPENDENCE WITH HEP AND THE ABILITY TO PROGRESS. Coordination/Communication With Referral Source Treatment Plan/Direct Interventions Electrical Stimulation,Heat, Ice/Cold/Vasopneumatic,Joint Mobilization,Manual Therapy, Neuromuscular Re-ed, Therapeutic Activities, Therapeutic Exercises Patient Will Be Discharged From Therapy Completion of LTG(s), Independently Progressing Discharge Plan Comments DISCHARGE TO SELF WHEN GOALS MET Evaluation Billing Untimed Code Treatment Minutes 15 PT Eval No Charge No Complexity Moderate Certification Information Initial Certification Date 08/24/23 Ending Certification Date 11/21/23 Provider Signature Shows Agreement With POC & Medical Necessity Physician Signature & Date Requested Please Sign/Date Here Physician Comment/Change : Physician NPI Number #
== END 2024-02-07 10:14 | disposition home or self-care (01) ==
PROVIDERS: PCP Family Medicine; Visit Provider Orthopaedic Surgery Sports Medicine
DX: M19.011 Primary osteoarthritis, right shoulder (principal); Z96.611 Presence of right artificial shoulder joint; M25.511 Pain in right shoulder; Z74.09 Other reduced mobility; R29.898 Other symptoms and signs involving the musculoskeletal system; Z51.89 Encounter for other specified aftercare
CPT/HCPCS: 97110; 97140; 97162; 97165; 97535; X5282

== ENCOUNTER 2023-12-16 21:11 | Inpatient (IN) | payer MEDICARE, BC, SELFPAY ==
[2023-12-16] VITALS (18 sets, daily range): BP systolic 122–160; BP diastolic 67–86; PULSE 83–108; RESP 16; TEMP 36.6; O2SAT 84–98
--- NOTE | 2023-12-16 21:43 | CRLHL7_ITS ---
For Patients: As a result of the Century Cures Act, medical imaging exams and procedure reports are released immediately into your electronic medical record. You may view this report before your referring provider. If you have questions, please contact your health care provider. INDICATION: Question bowel obstruction. TECHNIQUE: CT of the abdomen and pelvis acquired with 64 cc Isovue 370 IV contrast. Coronal and sagittal reconstructions. COMPARISON: CT of the abdomen and pelvis 02/28/2022. FINDINGS: Liver: Normal in size and attenuation. Stable small hepatic cyst. Hepatic and portal veins are patent. Gallbladder and bile ducts: Unremarkable. No biliary dilation. Spleen: Unremarkable. Pancreas: Unremarkable. Adrenal glands: Unremarkable. Kidneys, Ureters, and Bladder: Symmetric enhancement. No hydronephrosis or ureteral dilation. No obstructing urinary calculi identified. No bladder wall thickening. Reproductive structures: Uterus is unremarkable. Stable 1.4 cm left adnexal cyst which is likely benign (series 2, image 81). GI tract/Peritoneum: There are multiple dilated fluid-filled loops of mid small bowel compatible with obstruction. Small bowel anastomosis in the left lower quadrant where there is swirling and narrowing of loops with two potential transition points (series 2 images [id number] and series 4 images 40-50). Proximal and distal small bowel loops are decompressed. Fecalized material within loops near the anastomosis. Findings may represent a closed loop obstruction. The cecum appears displaced into the mid abdomen which is new since prior exam. Negative appendix. Mesenteric edema and interloop free fluid in the right abdomen. No intraperitoneal free air. No definite pneumatosis. Vasculature: Abdominal aorta is normal in caliber. Aortoiliac vascular calcifications. Mesenteric arteries are patent. Lymph nodes: No lymphadenopathy. Abdominal wall: Small bilateral fat containing inguinal hernias. Bones: Degenerative changes of the spine. Chronic compression fractures of T10, T11, and L1. Lower chest: Unremarkable. IMPRESSION: Mid small bowel obstruction with transition points in the left lower quadrant near the anastomosis where there is swirling of bowel loops. This may represent a closed loop obstruction. Associated mesenteric edema. Surgical consult is recommended. Please note that all CT scans at this facility use dose modulation, iterative reconstruction, and/or weight-based dosing when appropriate to reduce radiation dose to as low as reasonably achievable. Dictated by Camille Galvez MD @ 12/16/2023 11:38:21 PM (Electronically Signed)
[2023-12-16 22:01] LABS: Lactate* 1.1 mmol/L (0.5-1.9)
[2023-12-16 22:02] LABS: Basophils Percent Auto 0.2 % (0.0-3.0); Eosinophils Percent Auto 1.4 % (0.0-7.0); Hematocrit 39.9 % (33.0-51.0); Hemoglobin* 13.1 gm/dL (12.0-16.0); Immature Granulocytes Pct Auto 0.2 %; Lymphocytes Percent Auto 3.9 % (20-44); Mean Corpuscular HGB Conc 33 gm/dL (32-36); Mean Corpuscular Hemoglobin 31 pg (26-34); Mean Corpuscular Volume 94 fL (80-100); Monocytes Percent Auto 6.1 % (0.0-11.0); Neutrophils Percent Auto 88.2 % (42.0-72.0); Platelet Count* 272 K/uL (140-440); RDW Coefficient of Variation % 14.3 % (11.5-15.5); Red Blood Count 4.24 m/uL (4.00-5.20); White Blood Count* 13.05 K/uL (4.50-11.00)
--- NOTE | 2023-12-16 22:07 | ED_ITS ---
HPI - Abdominal Pain General Date Seen: 12/16/23 Chief Complaint: Abdominal Pain Stated Complaint: Abdominal Pain and Nausea Time Seen by Provider: 12/16/23 21:15 Source: patient and family Mode of arrival: ambulatory Limitations: no limitations History of Present Illness HPI narrative: Patient is a retired 88-year-old female, who presents here with her with abdominal pain since approximately noon today, this is associated with nausea and a couple episodes of vomiting. She has also had a couple hard stools but is not passing any gas and progressively more distended. This is worrying for her because she has had 2 previous bowel obstructions, 1 here in 2020, and another when she when she was on a trip in 2021 in [facility]. Both required laparotomy. She denies any fevers chills or sweats cough cold-like symptoms, did not take any medications for this, denies any significant intake of alcohol, retired nurse from our hospital. Denies any dysuria frequency, no blood in her vomitus. MD elicited complaint: abdominal pain Onset (ago): hour(s) (Eight) Pain Consistency: constant and colicky Location: diffuse Severity: moderate Quality: cramping, stabbing and fullness Radiation: none Migration to: no migration Exacerbating factors: movement Relieving factors: nothing Context: history of similar episodes Associated symptoms: nausea and vomiting Related Data Patient : No Home Medications Medication Instructions Recorded Confirmed cetirizine 10 mg tablet 10 mg PO DAILY PRN 08/05/22 09/23/23 levothyroxine 75 mcg tablet 75 mcg PO DAILY 08/05/22 09/23/23 lisinopril 5 mg tablet 5 mg PO HS 08/05/22 09/23/23 melatonin 5 mg capsule 5 mg PO HS 08/05/22 09/23/23 metoprolol tartrate 50 mg tablet 50 mg PO BID 08/05/22 09/23/23 multivitamin 1 tab PO DAILY 08/05/22 09/23/23 naproxen 250 mg tablet 250 mg PO BID PRN 04/12/23 09/23/23 omega 8-eve-cqg-fish oil 60 mg-90 1 cap PO BID 04/12/23 09/23/23 mg-500 mg capsule (Fish Oil) calcium carbonate 500 mg calcium 500 mg PO QDAY 09/23/23 09/23/23 (1,250 mg) chewable tablet (Calcium 500) Previous Rx's Medication Instructions Recorded acetaminophen 500 mg capsule 500 - 1,000 mg (1 - 2 x 500 mg) PO 08/11/23 Q8H PRN #100 caps amoxicillin 500 mg capsule 2,000 mg (4 x 500 mg) PO ONCE #4 11/22/23 caps Allergies Allergy/AdvReac Type Severity Reaction Status Date / Time cat dander Allergy Verified 09/23/23 08:54 perfume Allergy Verified 09/23/23 08:54 Review of Systems Status of ROS Reports: 10 or more systems reviewed and unremarkable except as noted in History and below [facility] Medical History Small bowel obstruction ?K56.609 - Unspecified intestinal obstruction, unspecified as to partial versus complete obstruction (ICD-10) Postoperative ileus ?K91.89 - Other postprocedural complications and disorders of digestive system (ICD-10) ?K56.7 - Ileus, unspecified (ICD-10) Postoperative hypoxia ?R09.02 - Hypoxemia (ICD-10) ?Z98.890 - Other specified postprocedural states (ICD-10) Anemia following surgery ?D64.9 - Anemia, unspecified (ICD-10) Strain of right hip ?S76.011A - Strain of muscle, fascia and tendon of right hip, initial encounter (ICD-10) Sigmoid diverticulosis ?K57.30 - Diverticulosis of large intestine without perforation or abscess without bleeding (ICD-10) Arthritis ?M19.90 - Unspecified osteoarthritis, unspecified site (ICD-10) GERD (gastroesophageal reflux disease) ?K21.9 - Gastro-esophageal reflux disease without esophagitis (ICD-10) Atrial fibrillation ?I48.91 - Unspecified atrial fibrillation (ICD-10) Hypothyroid ?E03.9 - Hypothyroidism, unspecified (ICD-10) Surgical History 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) ?Z98.890 - Other specified postprocedural states (ICD-10) History of ankle surgery (12/04/92) ?Z98.890 - Other specified postprocedural states (ICD-10) 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) ?Z96.651 - Presence of right artificial knee joint (ICD-10) S/P left unicompartmental knee replacement (08/07/13) ?Z96.652 - Presence of left artificial knee joint (ICD-10) History of surgery on lower extremity (12/04/92) ?Z98.890 - Other specified postprocedural states (ICD-10) 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) ?Z96.612 - Presence of left artificial shoulder joint (ICD-10) Family History Mother Breast cancer Bleeding tendency Father Heart problem Maternal Grandmother Stroke High blood pressure Social History What is your current living situation?: I presently have a place to live In the past 12 months, utilities in danger of being shut off: no In past 12 months, lack of transportation kept you from medical appts, meetings, work, or getting things needed for daily living: no In the past 12 mos, have been you worried that your food would run out before you had money to buy more?: never true In the past 12 mos, the food you bought just didn't last and you didn't have money to buy more?: never true Smoking Status: Never smoker Do you use any of these nicotine containing products: None Second hand tobacco smoke exposure: No How often do you have a drink containing alcohol: 4 or more times a week Alcohol type: wine How many standard drinks containing alcohol do you have on a typical day: 1 or 2 How often do you have six or more drinks on one occasion: Never AUDIT-C Alcohol total score: 4 Non-prescribed substance use: denies use How often does anyone, including family, friends and others, physically hurt you : never How often does anyone, including family, friends and others, insult or talk down to you: never How often does anyone, including family, friends and others, threaten you with harm: never How often does anyone, including family, friends and others, scream or curse at you: never Exam Narrative: Exam Narrative: Patient is seen in room 5 she is in no apparent distress pleasant very nice lady. Her pupils equal round reactive to light there is no scleral icterus or redness TMs bilaterally normal her oropharynx is normal her neck is supple full range of motion, chest is good air entry bilaterally with no wheezing crackles noted easy respirations heart sounds show no clicks or gallops, she does however have a murmur 2 to 3/6 over her apex, with radiation to her left axilla. I suspect that this is mitral stenosis abdomen is diffusely enlarged, tympanic, occasional bowel sounds are noted, throughout all. Scars from previous surgery are noted. Nose significant peritoneal signs are noted. Extremities are all normal no edema swelling, conjunctivae well perfused, and no icterus Const: Vital Signs, click to edit/add: Vital Signs - 24 hr 12/16/23 21:21 12/16/23 21:24 12/16/23 21:25 Temperature 97.8 F Pulse Rate 96 96 Pulse Rate [Left P ulse Oximeter] 94 Respiratory Rate 16 Blood Pressure 160/86 H Blood Pressure [Ri ght Upper Arm] 160/86 H Pulse Oximetry 98 94 [facility] 12/16/23 21:30 12/16/23 21:32 12/16/23 21:45 Temperature Pulse Rate 87 87 88 Pulse Rate [Left P ulse Oximeter] Respiratory Rate Blood Pressure 160/76 H Blood Pressure [Ri ght Upper Arm] Pulse Oximetry 96 95 96 Oxygen Delivery Me thod 12/16/23 22:14 12/16/23 22:15 12/16/23 22:30 Temperature Pulse Rate 90 93 84 Pulse Rate [Left P ulse Oximeter] Respiratory Rate Blood Pressure Blood Pressure [Ri ght Upper Arm] Pulse Oximetry 97 95 87 L [facility] 12/16/23 22:31 12/16/23 22:32 12/16/23 22:58 Temperature Pulse Rate 83 87 96 Pulse Rate [Left P ulse Oximeter] Respiratory Rate Blood Pressure 122/67 Blood Pressure [Ri ght Upper Arm] Pulse Oximetry 88 84 L 95 Oxygen Delivery Me thod 12/16/23 23:00 12/16/23 23:03 12/16/23 23:15 Temperature Pulse Rate 99 96 108 H Pulse Rate [Left P ulse Oximeter] Respiratory Rate Blood Pressure 133/68 Blood Pressure [Ri ght Upper Arm] Pulse Oximetry 95 96 98 Oxygen Delivery Me thod 12/16/23 23:30 12/16/23 23:32 12/16/23 23:45 Temperature Pulse Rate 93 90 Pulse Rate [Left P ulse Oximeter] Respiratory Rate Blood Pressure 152/79 H Blood Pressure [Ri ght Upper Arm] Pulse Oximetry 84 L 92 91 Oxygen Delivery Me thod 12/17/23 00:00 12/17/23 00:01 12/17/23 00:01 Temperature Pulse Rate 96 94 94 Pulse Rate [Left P ulse Oximeter] Respiratory Rate Blood Pressure 150/77 H 150/77 H Blood Pressure [Ri ght Upper Arm] Pulse Oximetry 94 94 94 Oxygen Delivery Me thod 12/17/23 00:01 12/17/23 00:01 Temperature Pulse Rate 94 94 Pulse Rate [Left P ulse Oximeter] Respiratory Rate Blood Pressure 150/77 H 150/77 H Blood Pressure [Ri ght Upper Arm] Pulse Oximetry 94 94 Oxygen Delivery Me thod Documenting provider has reviewed patient's vital signs: yes Course Reevaluation(s) Time of Reevaluation #1: 23:19 Reevaluation #1: Patient is no longer vomiting, but I did review the CT scan which shows marked evidence of a bowel obstruction, small bowel, with decompression of her colon, there is a lot of fluid in her stomach, and proximal small bowel so I would recommend NG tube, and once we get the read I will speak to the surgeon. She will need admission, fluids, and bowel rest. Post NG tube, x-ray looks like it is in good position. Time of Reevaluation #2: 00:24 Reevaluation #2: Spoke to Dr. Flores , she reviewed the CT scan with the radiologist, there is some swirling this looks like it is mesenteric in the left lower quadrant, this is worrisome, but her lactate is normal, I went back in and examined the patient her pain if anything is markedly improved her distension is markedly improved and she was sleeping, she tells me she feels much improved, and I discussed with her the findings on CT. At this point she is non tachycardic normal lactic acid pains improved and she has drained over 600 mL from her NG tube. I think admitting her overnight is a reasonable thing and she is also in agreement with this, is seeing how much she improves, and then repeating her lactic acid in a few hours care. I did talk to the hospitalist who will admit her to the hospital and maximize her medical care at this point. was on for Hospital Medicine, Consultations Consultation #1: Dr. Flores general surgery Time: 23:57 Vital Signs Vital signs: Initial Vital Signs Temperature 97.8 F 12/16/23 21:21 Temperature Source Temporal Artery Scan 12/16/23 21:21 Pulse Rate 94 12/16/23 21:21 Pulse Rhythm Regular 12/16/23 21:21 Respiratory Rate 16 12/16/23 21:21 Blood Pressure 160/86 H 12/16/23 21:21 Blood Pressure Mean 110 H 12/16/23 21:21 Blood Pressure Position Semi-Fowlers 12/16/23 21:21 Pulse Oximetry 98 12/16/23 21:21 Oxygen Delivery Method Room Air 12/16/23 21:21 Vital Signs Temperature 97.8 F 12/16/23 21:21 Pulse Rate 94 12/16/23 21:21 Respiratory Rate 16 12/16/23 21:21 Blood Pressure 160/86 H 12/16/23 21:21 Pulse Oximetry 98 12/16/23 21:21 Oxygen Delivery Method Room Air 12/16/23 21:21 Temperature 97.8 F 12/16/23 21:21 Pulse Rate 94 12/17/23 00:01 Respiratory Rate 16 12/16/23 21:21 Blood Pressure 150/77 H 12/17/23 00:01 Pulse Oximetry 94 12/17/23 00:01 Oxygen Delivery Method Room Air 12/16/23 21:21 Medications Administered Medications: Discontinued Medications Generic Name Dose Route Start Last Admin Trade Name Freq PRN Reason Stop Dose Admin Sodium Chloride 1,000 mls @ 1,000 mls/hr 12/16/23 21:45 12/16/23 23:58 0.9 % Sodium Chloride 1000 Ml IV 12/16/23 22:44 Infused .Q1H [place] Infusion Morphine Sulfate 4 mg 12/16/23 21:42 12/16/23 22:24 Morphine 4 Mg/Ml Inj IVP 12/16/23 21:43 4 mg ONCE ONE Administration Ondansetron HCl 4 mg 12/16/23 21:42 12/16/23 22:25 Ondansetron 2 Mg/Ml Inj IVP 12/16/23 21:43 4 mg ONCE ONE Administration MDM - Abdominal Pain MDM Narrative Medical decision making narrative: During the evaluation of this patient I considered multiple differential diagnosis including life-threatening differentials which are appendicitis, aor tic aneurysm, mesenteric ischemia, bowel perforation, ectopic , volvulus and bowel obstruction, other differential diagnosis include but are not limited to inflammatory bowel disease, cholecystitis, pancreatitis, hepatitis, gastritis, GERD, diverticulitis, peptic ulcer disease, pyelonephritis/UTI, renal colic/stone, pelvic inflammatory disease, cervicitis, endometritis, intrauterine , dysfunctional uterine bleeding, ovarian cyst/torsion, spontaneous as well as other etiologies Medical Records Attestation: I reviewed the patient's medical records. Lab Data Attestation: I reviewed the patient's lab results. Labs: Lab Results 12/16/23 12/16/23 12/16/23 Range/Units 21:43 21:50 22:05 WBC 13.05 H (4.50-11.00) K/uL RBC 4.24 (4.00-5.20) m/uL Hgb 13.1 (12.0-16.0) gm/dL Hct 39.9 (33.0-51.0) % MCV 94 (80-100) fL MCH 31 (26-34) pg MCHC 33 (32-36) gm/dL RDW Coeff of [place] 14.3 (11.5-15.5) % Plt Count 272 (140-440) K/uL Neut % (Auto) 88.2 H (42.0-72.0) % Lymph % (Auto) 3.9 L (20-44) % [place] % (Auto) 6.1 (0.0-11.0) % Eos % (Auto) 1.4 (0.0-7.0) % Baso % (Auto) 0.2 (0.0-3.0) % Neut # (Auto) 11.50 H (1.7-7.0) K/uL Lymph # (Auto) 0.50 L (0.90-2.90) K/uL [place] # (Auto) 0.80 (0.00-0.90) K/UL Eos # (Auto) 0.20 (0.00-0.50) K/uL Baso # (Auto) 0.00 (0.00-0.30) K/uL Abs Immat Gran (auto) 0.00 (0.00-0.30) K/uL Imm/Tot Granulo (auto) 0.2 % Sodium 129 L (135-149) mmol/L Potassium 4.2 (3.6-5.1) mmol/L Chloride 95 L (96-114) mmol/L Carbon Dioxide 25 (20-32) mmol/L Anion Gap 9 (7-15) mEq/L BUN 28 (7-30) mg/dL Creatinine 0.7 (0.5-1.5) mg/dL Estimated GFR 84 ml/min Glucose 160 H (60-115) mg/dL Lactate 1.1 (0.5-1.9) mmol/L Calcium 10.4 (8.4-10.6) mg/dL Total Bilirubin 0.9 (0.1-1.5) mg/dL Direct Bilirubin 0.1 (0.0-0.5) mg/dL AST 36 H (12-35) U/L ALT 26 (4-35) U/L Alkaline Phosphatase 84 (40-150) U/L C-Reactive Protein 0.5 (0.5-1.0) mg/dL Total Protein 7.7 (6.0-8.3) g/dL Albumin 4.5 (3.3-5.0) g/dL Amylase 110 H (18-89) U/L Lipase 93 (23-300) U/L Urine Color Yellow (Yellow) Urine Appearance Clear (Clear) Urine pH 6.0 (5.0-8.5) Ur Specific [place] 1.025 (1.000-1.030) Urine Protein Negative (Negative) Urine Glucose (UA) Negative (Negative) Urine Ketones 2+ A (Negative) Urine Blood Trace-intact A (Negative) Urine Nitrite Positive A (Negative) Urine Bilirubin Negative (Negative) Urine Urobilinogen 0.2 (0.2-1.0) Ur Leukocyte Esterase Negative (Negative) Urine RBC 0-2 (0-2) Urine WBC 5-10 A (0-5) Ur Squamous Epith Cells None (None-Few) Urine Bacteria Many A (None) SARS-CoV-2 (PCR) Negative SARS-CoV-2 (Negative) Influenza Type A (PCR) Negative PCR FLU A (Negative) Influenza Type B (PCR) Negative PCR FLU B (Negative) RSV (PCR) Negative PCR RSV (Negative) POC Troponin I 0.00 L (0.01-0.04) ng/ml WBC year white count is elevated, and hemoglobin however is normal, sodium is slightly low also. Which may be contributing. Urine shows looks like a little bit of a bladder infection also, negative COVID influenza, and troponin was r eassuring. Imaging Data CT scan - abdomen: Attestation: I have reviewed the pertinent imaging results. My impression: CT scan shows distended small bowel and also stomach, distal large bowel is decompressed, assessment small-bowel obstruction Radiologist's impression: Patient: [facility] Facility:?[facility] Patient ID:?[id number] Site Patient ID:?[id number]. Site :?[id number] Study:?CT Abdomen/Pelvis W/ISOVUE 370 64CC-12/16/2023 11:00:22 PM Ordering Physician:Vesna Valentine Final Report: INDICATION: Question bowel obstruction. TECHNIQUE: CT of the abdomen and pelvis acquired with 64 cc Isovue 370 IV contrast. Coronal and sagittal reconstructions. COMPARISON: CT of the abdomen and pelvis 02/28/2022. FINDINGS: Liver: Normal in size and attenuation. Stable small hepatic cyst. Hepatic and portal veins are patent. Gallbladder and bile ducts: Unremarkable. No biliary dilation. Spleen: Unremarkable. Pancreas: Unremarkable. Adrenal glands: Unremarkable. Kidneys, Ureters, and Bladder: Symmetric enhancement. No hydronephrosis or ureteral dilation. No obstructing urinary calculi identified. No bladder wall thickening. Reproductive structures: Uterus is unremarkable. Stable 1.4 cm left adnexal cyst which is likely benign (series 2, image 81). GI tract/Peritoneum: There are multiple dilated fluid-filled loops of mid small bowel compatible with obstruction. Small bowel anastomosis in the left lower quadrant where there is swirling and narrowing of loops with two potential transition points (series 2 images 63-73 and series 4 images 40-50). Proximal and distal small bowel loops are decompressed. Fecalized material within loops near the anastomosis. Findings may represent a closed loop obstruction. The cecum appears displaced into the mid abdomen which is new since prior exam. Negative appendix. Mesenteric edema and interloop free fluid in the right abdomen. No intraperitoneal free air. No definite pneumatosis. Vasculature: Abdominal aorta is normal in caliber. Aortoiliac vascular calcifi cations. Mesenteric arteries are patent. Lymph nodes: No lymphadenopathy. Abdominal wall: Small bilateral fat containing inguinal hernias. Bones: Degenerative changes of the spine. Chronic compression fractures of T10, T11, and L1. Lower chest: Unremarkable. IMPRESSION: Mid small bowel obstruction with transition points in the left lower quadrant near the anastomosis where there is swirling of bowel loops. This may represent a closed loop obstruction. Associated mesenteric edema. Surgical consult is recommended. Please note that all CT scans at this facility use dose modulation, iterative reconstruction, and/or weight-based dosing when appropriate to reduce radiation dose to as low as reasonably achievable. Dictated by Camille Galvez MD @ 12/16/2023 11:38:21 PM (Electronic Signature) ECG Data Attestation: I personally reviewed and interpreted this ECG as follows: ECG interpretation date: 12/16/23 Ischemic changes: other (Left bundle-branch block, ventricular rate is 94, patient is in sinus rhythm, when compared to old EKG from 2021, left bundle was there then) Discharge Plan Discharge Clinical Impression: Complete obstruction of small intestine, Abdominal pain, Acute hyponatremia, Urinary tract infection Patient Disposition: Admitted As Observation Activity Level: No strenuous activity Discharge Diet: Other Diet Detail: npo Prescriptions: No Action omega 6-ook-aqf-fish oil [Fish Oil] 60-90-500 mg capsule 1 cap PO BID naproxen 250 mg tablet 250 mg PO BID PRN calcium carbonate [Calcium 500] 500 mg calcium (1,250 mg) tablet,chewable 500 mg PO QDAY levothyroxine 75 mcg tablet 75 mcg PO DAILY metoprolol tartrate 50 mg tablet 50 mg PO BID Patient Comments: TAKE 1 TABLET BY MOUTH 2 TIMES DAILY lisinopril 5 mg tablet 5 mg PO HS cetirizine 10 mg tablet 10 mg PO DAILY PRN multivitamin Tablet 1 tab PO DAILY melatonin 5 mg capsule 5 mg PO HS acetaminophen 500 mg capsule 500 - 1,000 mg PO Q8H MDD 3000mg PRNQty: 100 0RF amoxicillin 500 mg capsule 2,000 mg PO ONCE Qty: 4 3RF Rx Instructions: Take all 4 capsules, 1 hour prior to dental appointment Follow Up/Referrals: PrashantAkila nicholson MD [Primary Care Provider] -
[2023-12-16 22:14] LABS: Slide Review Reflex No
[2023-12-16 22:16] LABS: Albumin* 4.5 g/dL (3.3-5.0); Chloride* 95 mmol/L (96-114); Sodium* 129 mmol/L (135-149)
[2023-12-16 22:17] LABS: Potassium* 4.2 mmol/L (3.6-5.1)
[2023-12-16 22:19] LABS: Amylase* 110 U/L (18-89); Creatinine* 0.7 mg/dL (0.5-1.5); Estimated Glomerular Filt Rate 84 ml/min
[2023-12-16 22:20] LABS: Alanine Aminotransferase* 26 U/L (4-35); Alkaline Phosphatase* 84 U/L (40-150); Anion Gap 9 mEq/L (7-15); Aspartate Amino Transferase* 36 U/L (12-35); Bilirubin Direct* 0.1 mg/dL (0.0-0.5); Bilirubin Total* 0.9 mg/dL (0.1-1.5); Calcium* 10.4 mg/dL (8.4-10.6); Carbon Dioxide* 25 mmol/L (20-32); Glucose* 160 mg/dL (60-115); Lipase* 93 U/L (23-300); Total Protein* 7.7 g/dL (6.0-8.3)
[2023-12-16 22:22] LABS: Appearance Urine Clear (Clear); Bilirubin Urine Negative (Negative); Blood Urine Trace-intact (Negative); Color Urine Yellow (Yellow); Glucose Urine Negative (Negative); Ketones Urine 2+ (Negative); Leukocyte Esterase Urine Negative (Negative); Nitrite Urine Positive (Negative); Protein Urine Negative (Negative); Specific Gravity Urine 1.025 (1.000-1.030); Urobilinogen Urine 0.2 (0.2-1.0)
[2023-12-16 22:23] LABS: C Reactive Protein* 0.5 mg/dL (0.5-1.0)
[2023-12-16] MEDS: MORPHINE 4 MG/ML INJ IVP (22:24)
[2023-12-16] MEDS: ONDANSETRON 2 MG/ML inj 4 MG IVP (22:25)
[2023-12-16] MEDS: 0.9 % SODIUM CHLORIDE 1000 ml 1,000 ML IV (22:25)
[2023-12-16 22:40] LABS: Bacteria Urine Many; RBC Urine 0-2 (0-2)
--- NOTE | 2023-12-16 22:48 | ED.NURSE ---
Patient's IV did not work while in CT and will not flush. Started new IV in left AC, 20 G. Will d/c right AC IV when she returns. Patient tolerated the procedure well.
[2023-12-16 22:55] LABS: PCR FLU A Negative PCR FLU A (Negative); PCR FLU B Negative PCR FLU B (Negative); PCR RSV Negative PCR RSV (Negative); SARS PCR* Negative SARS-CoV-2 (Negative)
--- NOTE | 2023-12-16 23:23 | ED.NURSE ---
NG tube inserted in right nare without complication. Advanced to 60 cm malena. Obtained approximately 600 cc clear/brown stomach contents, and patient states she feels less nauseated. Suction is to LIS. Secured at nose and on shirt with pin. Chest XRay to be ordered to confirm placement.
--- NOTE | 2023-12-16 23:27 | CRLHL7_ITS ---
For Patients: As a result of the Century Cures Act, medical imaging exams and procedure reports are released immediately into your electronic medical record. You may view this report before your referring provider. If you have questions, please contact your health care provider. INDICATION: NG tube placement. TECHNIQUE: Chest 1 view. COMPARISON: None. FINDINGS: Cardiovascular and mediastinum: Heart size and vasculature are normal in caliber and appearance. Aortic atherosclerotic calcifications. NG tube tip projects over the proximal stomach with the side port near the GE junction. Lungs and pleural spaces: Lungs are clear. No sign of infiltrate or mass. No sign of pleural effusion. No pneumothorax. Bones and soft tissues: Bilateral shoulder arthroplasty. Partially visualized distended bowel loops. IMPRESSION: NG tube tip projects over the proximal stomach with the side port near the GE junction. Dictated by Zan Aviles MD @ 12/17/2023 12:31:01 AM (Electronically Signed)
[2023-12-16 23:32] LABS: Blood Urea Nitrogen* 28 mg/dL (7-30)
[2023-12-17] VITALS (16 sets, daily range): BP systolic 107–150; BP diastolic 67–94; PULSE 85–113; RESP 14–20; TEMP 36.6–37.2; O2SAT 89–96; BMI 23.2
--- NOTE | 2023-12-17 00:09 | PM.EN ---
Chart Event Note Chart Event Note: CAlled in consultation by Dr. Stewart regarding this patient who has a history of SBO X3 since 2020. In 2020 she develped a small bowel obstruction (surgical history of tubal ligation) that did not resolve with conservative management and she underwent laparotomy and small bowel resection. She later developed an additional SBO in [facility] and was treated there with surgery after a failed gastrograffin challenge - lysis of adhesions was performed. In February 2022, she again developed a small bowel obstruction and was managed conservatively - there was a mesenteric swirl noted. She presents with pain, nausea and vomiting which began today. CT shows mesenteric swirling again with more remarkable distension than CT from 2021. Discussed this with the radiologist. No signs of bowel ischemia though transition points are noted with mesenteric edema. The patient is noted to have a WBC of 13. She is hyponatremic but lactate normal. NG was placed and patient had marked improvement in symptoms. CT findings are concerning; however, she has now had two surgeries within 3 years for bowel obstruction and has been managed conservatively previously with mesenteric swirling noted on CT - for now, as long as her pain has improved, will plan on NG decompression and rechecking lactate in 2 hours. If worsening pain, tachycardia, or lactate increasing, will plan on exploration overnight. Otherwise, will re-evaluate patient in the morning and recheck labs. if exam is benign will consider gastrograffin challenge.
[2023-12-17] MEDS: CEFAZOLIN 1 GM inj IVP (00:51)
[2023-12-17] MEDS: 0.9 % SODIUM CHLORIDE 1000 ml 1,000 ML 125 ML IV (00:51)
--- NOTE | 2023-12-17 01:18 | PM.IMHP1 ---
Hospitalist- H&P: HPI History of Present Illness Date Seen: 12/17/23 Chief complaint: Abdominal Pain and Nausea Narrative: Areli Lee is a 88 year old female [facility] Medical History Small bowel obstruction ?K56.609 - Unspecified intestinal obstruction, unspecified as to partial versus complete obstruction (ICD-10) Postoperative ileus ?K91.89 - Other postprocedural complications and disorders of digestive system (ICD-10) ?K56.7 - Ileus, unspecified (ICD-10) Postoperative hypoxia ?R09.02 - Hypoxemia (ICD-10) ?Z98.890 - Other specified postprocedural states (ICD-10) Anemia following surgery ?D64.9 - Anemia, unspecified (ICD-10) Strain of right hip ?S76.011A - Strain of muscle, fascia and tendon of right hip, initial encounter (ICD-10) Sigmoid diverticulosis ?K57.30 - Diverticulosis of large intestine without perforation or abscess without bleeding (ICD-10) Arthritis ?M19.90 - Unspecified osteoarthritis, unspecified site (ICD-10) GERD (gastroesophageal reflux disease) ?K21.9 - Gastro-esophageal reflux disease without esophagitis (ICD-10) Atrial fibrillation ?I48.91 - Unspecified atrial fibrillation (ICD-10) Hypothyroid ?E03.9 - Hypothyroidism, unspecified (ICD-10) Surgical History 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) ?Z98.890 - Other specified postprocedural states (ICD-10) History of ankle surgery (12/04/92) ?Z98.890 - Other specified postprocedural states (ICD-10) 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) ?Z96.651 - Presence of right artificial knee joint (ICD-10) S/P left unicompartmental knee replacement (08/07/13) ?Z96.652 - Presence of left artificial knee joint (ICD-10) History of surgery on lower extremity (12/04/92) ?Z98.890 - Other specified postprocedural states (ICD-10) 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) ?Z96.612 - Presence of left artificial shoulder joint (ICD-10) Family History Mother Breast cancer Bleeding tendency Father Heart problem Maternal Grandmother Stroke High blood pressure Social History What is your current living situation?: I presently have a place to live In the past 12 months, utilities in danger of being shut off: no In past 12 months, lack of transportation kept you from medical appts, meetings, work, or getting things needed for daily living: no In the past 12 mos, have been you worried that your food would run out before you had money to buy more?: never true In the past 12 mos, the food you bought just didn't last and you didn't have money to buy more?: never true Smoking Status: Never smoker Do you use any of these nicotine containing products: None Second hand tobacco smoke exposure: No How often do you have a drink containing alcohol: 4 or more times a week Alcohol type: wine How many standard drinks containing alcohol do you have on a typical day: 1 or 2 How often do you have six or more drinks on one occasion: Never AUDIT-C Alcohol total score: 4 Non-prescribed substance use: denies use How often does anyone, including family, friends and others, physically hurt you: never How often does anyone, including family, friends and others, insult or talk down to you: never How often does anyone, including family, friends and others, threaten you with harm: never How often does anyone, including family, friends and others, scream or curse at you: never Meds Home Medications and Allergies Home Medications Medication Instructions Recorded Confirmed Type cetirizine 10 mg tablet 10 mg PO DAILY PRN 08/05/22 09/23/23 History levothyroxine 75 mcg tablet 75 mcg PO DAILY 08/05/22 09/23/23 History lisinopril 5 mg tablet 5 mg PO HS 08/05/22 09/23/23 History melatonin 5 mg capsule 5 mg PO HS 08/05/22 09/23/23 History metoprolol tartrate 50 mg tablet 50 mg PO BID 08/05/22 09/23/23 History multivitamin 1 tab PO DAILY 08/05/22 09/23/23 History naproxen 250 mg tablet 250 mg PO BID PRN 04/12/23 09/23/23 History omega 2-hag-prk-fish oil 60 mg-90 1 cap PO BID 04/12/23 09/23/23 History mg-500 mg capsule (Fish Oil) calcium carbonate 500 mg calcium 500 mg PO QDAY 09/23/23 09/23/23 History (1,250 mg) chewable tablet (Calcium 500) Allergies Allergy/AdvReac Type Severity Reaction Status Date / Time cat dander Allergy Verified 09/23/23 08:54 perfume Allergy Verified 09/23/23 08:54 Exam Const: Vital Signs, click to edit/add: Vital Signs - 24 hr 12/16/23 21:21 12/16/23 21:24 12/16/23 21:25 Temperature 97.8 F Pulse Rate 96 96 Pulse Rate [Left P ulse Oximeter] 94 Respiratory Rate 16 Blood Pressure 160/86 H Blood Pressure [Ri ght Upper Arm] 160/86 H Pulse Oximetry 98 94 [facility] 12/16/23 21:30 12/16/23 21:32 12/16/23 21:45 Temperature Pulse Rate 87 87 88 Pulse Rate [Left P ulse Oximeter] Respiratory Rate Blood Pressure 160/76 H Blood Pressure [Ri ght Upper Arm] Pulse Oximetry 96 95 96 [facility] 12/16/23 22:14 12/16/23 22:15 12/16/23 22:30 Temperature Pulse Rate 90 93 84 Pulse Rate [Left P ulse Oximeter] Respiratory Rate Blood Pressure Blood Pressure [Ri ght Upper Arm] Pulse Oximetry 97 95 87 L [facility] 12/16/23 22:31 12/16/23 22:32 12/16/23 22:58 Temperature Pulse Rate 83 87 96 Pulse Rate [Left P ulse Oximeter] Respiratory Rate Blood Pressure 122/67 Blood Pressure [Ri ght Upper Arm] Pulse Oximetry 88 84 L 95 [facility] 12/16/23 23:00 12/16/23 23:03 12/16/23 23:15 Temperature Pulse Rate 99 96 108 H Pulse Rate [Left P ulse Oximeter] Respiratory Rate Blood Pressure 133/68 Blood Pressure [Ri ght Upper Arm] Pulse Oximetry 95 96 98 [facility] 12/16/23 23:30 12/16/23 23:32 12/16/23 23:45 Temperature Pulse Rate 93 90 Pulse Rate [Left P ulse Oximeter] Respiratory Rate Blood Pressure 152/79 H Blood Pressure [Ri ght Upper Arm] Pulse Oximetry 84 L 92 91 [facility] 12/17/23 00:00 12/17/23 00:01 12/17/23 00:01 Temperature Pulse Rate 96 94 94 Pulse Rate [Left P ulse Oximeter] Respiratory Rate Blood Pressure 150/77 H 150/77 H Blood Pressure [Ri ght Upper Arm] Pulse Oximetry 94 94 94 [facility] 12/17/23 00:01 12/17/23 00:01 12/17/23 00:02 Temperature Pulse Rate 94 94 93 Pulse Rate [Left P ulse Oximeter] Respiratory Rate Blood Pressure 150/77 H 150/77 H Blood Pressure [Ri ght Upper Arm] Pulse Oximetry 94 94 93 Oxygen Delivery [facility] 12/17/23 00:15 12/17/23 00:30 12/17/23 00:31 Temperature Pulse Rate 93 91 90 Pulse Rate [Left P ulse Oximeter] Respiratory Rate Blood Pressure 130/94 H Blood Pressure [Ri ght Upper Arm] Pulse Oximetry 94 89 91 [facility] 12/17/23 00:45 Temperature Pulse Rate 96 Pulse Rate [Left P ulse Oximeter] Respiratory Rate Blood Pressure Blood Pressure [Ri ght Upper Arm] Pulse Oximetry 91 Oxygen Delivery [facility] Hospitalist - H&P: Result Labs Labs: Short CBC 12/16/23 Range/Units 21:50 WBC 13.05 H (4.50-11.00) K/uL Hgb 13.1 (12.0-16.0) gm/dL Hct 39.9 (33.0-51.0) % Plt Count 272 (140-440) K/uL BMP 12/16/23 21:50 Sodium 129 L Potassium 4.2 Chloride 95 L Carbon Dioxide 25 BUN 28 Creatinine 0.7 Glucose 160 H Calcium 10.4 Liver Function 12/16/23 Range/Units 21:50 Total Bilirubin 0.9 (0.1-1.5) mg/dL Direct Bilirubin 0.1 (0.0-0.5) mg/dL AST 36 H (12-35) U/L ALT 26 (4-35) U/L Alkaline Phosphatase 84 (40-150) U/L Albumin 4.5 (3.3-5.0) g/dL Urine 12/16/23 Range/Units 22:05 Urine Color Yellow (Yellow) Urine Appearance Clear (Clear) Urine pH 6.0 (5.0-8.5) Ur Specific [place] 1.025 (1.000-1.030) Urine Protein Negative (Negative) Urine Glucose (UA) Negative (Negative) Assessment and Plan Assessment and plan (1) Abdominal pain: Status: Acute (2) Complete obstruction of small intestine: Status: Acute (3) Acute hyponatremia: Status: Acute (4) Leukocytosis: Status: Acute (5) Hypertension: Status: Acute
--- NOTE | 2023-12-17 01:21 | W.PM.TELEH&P ---
Telehealth- H&P: HPI History of Present Illness Date Seen: 12/17/23 Chief complaint: Abdominal Pain and Nausea Narrative: Areli Lee is seen as an Interactive Telehealth visit. Areli Lee is a 88 year old male who has a past medical history notable for chronic hyponatremia, hypertension, hypothyroidism,recurrent small bowel obstruction who presented for evaluation of worsening abdominal discomfort similar to previous episodes of small bowel obstruction. Of note she has had several small bowel obstructions several requiring surgery. She had a bowel movement on the day of admission, she was tolerating her diet normally until around noon when she developed abdominal distention and pain. The pain was 6-7 out of 10 in severity. She stopped passing gas. She had retching but no vomiting. She did not have any fevers or chills. She came into the ER as she felt the symptoms were similar to previous small bowel obstructions. In the ER she was noted to have a small bowel obstruction on CT imaging. She had hyponatremia and mild leukocytosis. General surgery was called and reviewed the imaging and recommended admission to medicine with NG tube placement with formal general surgery consult in the a.[facility] Medical History Small bowel obstruction ?K56.609 - Unspecified intestinal obstruction, unspecified as to partial versus complete obstruction (ICD-10) Postoperative ileus ?K91.89 - Other postprocedural complications and disorders of digestive system (ICD-10) ?K56.7 - Ileus, unspecified (ICD-10) Postoperative hypoxia ?R09.02 - Hypoxemia (ICD-10) ?Z98.890 - Other specified postprocedural states (ICD-10) Anemia following surgery ?D64.9 - Anemia, unspecified (ICD-10) Strain of right hip ?S76.011A - Strain of muscle, fascia and tendon of right hip, initial encounter (ICD-10) Sigmoid diverticulosis ?K57.30 - Diverticulosis of large intestine without perforation or abscess without bleeding (ICD-10) Arthritis ?M19.90 - Unspecified osteoarthritis, unspecified site (ICD-10) GERD (gastroesophageal reflux disease) ?K21.9 - Gastro-esophageal reflux disease without esophagitis (ICD-10) Atrial fibrillation ?I48.91 - Unspecified atrial fibrillation (ICD-10) Hypothyroid ?E03.9 - Hypothyroidism, unspecified (ICD-10) Surgical History 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) ?Z98.890 - Other specified postprocedural states (ICD-10) History of ankle surgery (12/04/92) ?Z98.890 - Other specified postprocedural states (ICD-10) 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) ?Z96.651 - Presence of right artificial knee joint (ICD-10) S/P left unicompartmental knee replacement (08/07/13) ?Z96.652 - Presence of left artificial knee joint (ICD-10) History of surgery on lower extremity (12/04/92) ?Z98.890 - Other specified postprocedural states (ICD-10) 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) ?Z96.612 - Presence of left artificial shoulder joint (ICD-10) Family History Mother Breast cancer Bleeding tendency Father Heart problem Maternal Grandmother Stroke High blood pressure Social History What is your current living situation?: I presently have a place to live In the past 12 months, utilities in danger of being shut off: no In past 12 months, lack of transportation kept you from medical appts, meetings, work, or getting things needed for daily living: no In the past 12 mos, have been you worried that your food would run out before you had money to buy more?: never true In the past 12 mos, the food you bought just didn't last and you didn't have money to buy more?: never true Smoking Status: Never smoker Do you use any of these nicotine containing products: None Second hand tobacco smoke exposure: No How often do you have a drink containing alcohol: 4 or more times a week Alcohol type: wine How many standard drinks containing alcohol do you have on a typical day: 1 or 2 How often do you have six or more drinks on one occasion: Never AUDIT-C Alcohol total score: 4 Non-prescribed substance use: denies use How often does anyone, including family, friends and others, physically hurt you: never How often does anyone, including family, friends and others, insult or talk down to you: never How often does anyone, including family, friends and others, threaten you with harm: never How often does anyone, including family, friends and others, scream or curse at you: never Meds Home Medications and Allergies Home Medications Medication Instructions Recorded Confirmed Type cetirizine 10 mg tablet 10 mg PO DAILY PRN 08/05/22 09/23/23 History levothyroxine 75 mcg tablet 75 mcg PO DAILY 08/05/22 09/23/23 History lisinopril 5 mg tablet 5 mg PO HS 08/05/22 09/23/23 History melatonin 5 mg capsule 5 mg PO HS 08/05/22 09/23/23 History metoprolol tartrate 50 mg tablet 50 mg PO BID 08/05/22 09/23/23 History multivitamin 1 tab PO DAILY 08/05/22 09/23/23 History naproxen 250 mg tablet 250 mg PO BID PRN 04/12/23 09/23/23 History omega 9-fjn-yff-fish oil 60 mg-90 1 cap PO BID 04/12/23 09/23/23 History mg-500 mg capsule (Fish Oil) calcium carbonate 500 mg calcium 500 mg PO QDAY 09/23/23 09/23/23 History (1,250 mg) chewable tablet (Calcium 500) Allergies Allergy/AdvReac Type Severity Reaction Status Date / Time cat dander Allergy Verified 09/23/23 08:54 perfume Allergy Verified 09/23/23 08:54 Exam Narrative Exam Narrative: Physical Exam GENERAL: ?vital signs reviewed, well developed and nourished, in no distress HEENT: pupils are equal round and reactive to light, extraocular movements are grossly within normal limits and oral mucosa is moist. NECK: Supple without lymphadenopathy or thyromegaly according to nursing staff examination observation HEART: Regular rate and rhythm without any rubs, murmurs, or gallops. LUNGS: Clear to auscultation bilaterally with good air movement throughout ABDOMEN: Observation from nurse assisted exam, abdomen appears soft, nontender, and nondistended with Positive bowel sounds noted. EXTREMITIES: Strength and sensation is observed to be grossly within normal limits in the upper and lower extremities.? No focal strength deficit is observed. SKIN:? Observed warm and dry with color normal Const Vital Signs, click to edit/add: Vital Signs - 24 hr 12/16/23 21:21 12/16/23 21:24 12/16/23 21:25 Temperature 97.8 F Pulse Rate 96 96 Pulse Rate [Left Pulse Oximeter] 94 Respiratory Rate 16 Blood Pressure 160/86 H Blood Pressure [Right Upper Arm] 160/86 H Pulse Oximetry 98 94 97 Oxygen Delivery Method Room Air 12/16/23 21:30 12/16/23 21:32 12/16/23 21:45 Temperature Pulse Rate 87 87 88 Pulse Rate [Left Pulse Oximeter] Respiratory Rate Blood Pressure 160/76 H Blood Pressure [Right Upper Arm] Pulse Oximetry 96 95 96 Oxygen Delivery Method 12/16/23 22:14 12/16/23 22:15 12/16/23 22:30 Temperature Pulse Rate 90 93 84 Pulse Rate [Left Pulse Oximeter] Respiratory Rate Blood Pressure Blood Pressure [Right Upper Arm] Pulse Oximetry 97 95 87 L Oxygen Delivery Method 12/16/23 22:31 12/16/23 22:32 12/16/23 22:58 Temperature Pulse Rate 83 87 96 Pulse Rate [Left Pulse Oximeter] Respiratory Rate Blood Pressure 122/67 Blood Pressure [Right Upper Arm] Pulse Oximetry 88 84 L 95 Oxygen Delivery Method 12/16/23 23:00 12/16/23 23:03 12/16/23 23:15 Temperature Pulse Rate 99 96 108 H Pulse Rate [Left Pulse Oximeter] Respiratory Rate Blood Pressure 133/68 Blood Pressure [Right Upper Arm] Pulse Oximetry 95 96 98 Oxygen Delivery Method 12/16/23 23:30 12/16/23 23:32 12/16/23 23:45 Temperature Pulse Rate 93 90 Pulse Rate [Left Pulse Oximeter] Respiratory Rate Blood Pressure 152/79 H Blood Pressure [Right Upper Arm] Pulse Oximetry 84 L 92 91 Oxygen Delivery Method 12/17/23 00:00 12/17/23 00:01 12/17/23 00:01 Temperature Pulse Rate 96 94 94 Pulse Rate [Left Pulse Oximeter] Respiratory Rate Blood Pressure 150/77 H 150/77 H Blood Pressure [Right Upper Arm] Pulse Oximetry 94 94 94 Oxygen Delivery Method 12/17/23 00:01 12/17/23 00:01 12/17/23 00:02 Temperature Pulse Rate 94 94 93 Pulse Rate [Left Pulse Oximeter] Respiratory Rate Blood Pressure 150/77 H 150/77 H Blood Pressure [Right Upper Arm] Pulse Oximetry 94 94 93 Oxygen Delivery Method 12/17/23 00:15 12/17/23 00:30 12/17/23 00:31 Temperature Pulse Rate 93 91 90 Pulse Rate [Left Pulse Oximeter] Respiratory Rate Blood Pressure 130/94 H Blood Pressure [Right Upper Arm] Pulse Oximetry 94 89 91 Oxygen Delivery Method 12/17/23 00:45 Temperature Pulse Rate 96 Pulse Rate [Left Pulse Oximeter] Respiratory Rate Blood Pressure Blood Pressure [Right Upper Arm] Pulse Oximetry 91 Oxygen Delivery Method Hospitalist - H&P: Result Labs Labs: Short CBC 12/16/23 Range/Units 21:50 WBC 13.05 H (4.50-11.00) K/uL Hgb 13.1 (12.0-16.0) gm/dL Hct 39.9 (33.0-51.0) % Plt Count 272 (140-440) K/uL BMP 12/16/23 21:50 Sodium 129 L Potassium 4.2 Chloride 95 L Carbon Dioxide 25 BUN 28 Creatinine 0.7 Glucose 160 H Calcium 10.4 Liver Function 12/16/23 Range/Units 21:50 Total Bilirubin 0.9 (0.1-1.5) mg/dL Direct Bilirubin 0.1 (0.0-0.5) mg/dL AST 36 H (12-35) U/L ALT 26 (4-35) U/L Alkaline Phosphatase 84 (40-150) U/L Albumin 4.5 (3.3-5.0) g/dL Urine 12/16/23 Range/Units 22:05 Urine Color Yellow (Yellow) Urine Appearance Clear (Clear) Urine pH 6.0 (5.0-8.5) Ur Specific [place] 1.025 (1.000-1.030) Urine Protein Negative (Negative) Urine Glucose (UA) Negative (Negative) Assessment and Plan Assessment and plan (1) Leukocytosis: Status: Acute (2) Abdominal pain: Status: Acute (3) Complete obstruction of small intestine: Status: Acute (4) Hypertension: Status: Acute (5) Hyponatremia: Status: Acute Plan Small bowel obstruction History of small bowel obstruction, has needed surgical intervention in the past ER reviewed case with on-call general surgery, recommended NG tube, repeat lactate Hold chemoprophylaxis for DVT in case patient requires OR Hyponatremia Appears to be chronic Goal correction not more than 6 mEq in 24 hours Sodium 129, start with LR at 100 mL/h recheck sodium at 3:30 AM Leukocytosis Likely reactive Low threshold to start antibiotics if any clinical changes History of atrial fibrillation Single episode Is on chronic beta-blockade Will use IV metoprolol 10 mg every 6 hours as replacement for oral Hypothyroidism Hold levothyroxine for now, Switch to IV if prolonged n.p.o. status Hypertension Hold lisinopril due to risk of perioperative hypotension Full code confirmed on admission Telehealth: Statement Statement Telehealth Visit: Today's History and Physical is provided via interactive telehealth by Dominic Robles MD.? Patient is located at [facility].? Provider is located at [facility].? Nursing staff assisted with the patient's exam. The visit being done today meets criteria for a telehealth visit and the patient or patient?s parent/guardian is aware the visit is a telehealth visit. Camera Start Time: 01:30 Camera End Time: 01:40
[2023-12-17 02:09] LABS: Lactate* 0.8 mmol/L (0.5-1.9)
[2023-12-17 02:11] LABS: Basophils Percent Auto 0.1 % (0.0-3.0); Eosinophils Percent Auto 0.3 % (0.0-7.0); Hemoglobin* 13.1 gm/dL (12.0-16.0); Lymphocytes Percent Auto 2.5 % (20-44); Mean Corpuscular HGB Conc 33 gm/dL (32-36); Mean Corpuscular Hemoglobin 31 pg (26-34); Mean Corpuscular Volume 95 fL (80-100); Monocytes Percent Auto 5.7 % (0.0-11.0); Neutrophils Percent Auto 90.4 % (42.0-72.0); Platelet Count* 275 K/uL (140-440); RDW Coefficient of Variation % 14.5 % (11.5-15.5); Red Blood Count 4.23 m/uL (4.00-5.20); White Blood Count* 13.09 K/uL (4.50-11.00)
[2023-12-17 02:16] LABS: Slide Review Reflex No
[2023-12-17 02:29] LABS: Chloride* 98 mmol/L (96-114); Potassium* 4.5 mmol/L (3.6-5.1); Sodium* 133 mmol/L (135-149)
[2023-12-17 02:32] LABS: Anion Gap 9 mEq/L (7-15); Blood Urea Nitrogen* 23 mg/dL (7-30); Carbon Dioxide* 26 mmol/L (20-32); Creatinine* 0.7 mg/dL (0.5-1.5); Estimated Glomerular Filt Rate 84 ml/min
[2023-12-17 02:33] LABS: Calcium* 9.9 mg/dL (8.4-10.6); Glucose* 139 mg/dL (60-115)
[2023-12-17] MEDS: METOPROLOL TARTRATE 1 MG/ML inj 10 MG IVP ×4 (03:17→21:36)
--- NOTE | 2023-12-17 07:04 | PC.NURSE ---
Admitted to unit a t0100 with dx of abdominal pain, bowel obstruction. NG placed in ER, patent and to intermittent suction, 50cc output over shift. Alert and oriented x 4. Pain to abdomen rated at 1-2/10, pain is tolerable for patient. Ambulates independently, continent of bladder and bowel. Abdomen is firm and distended, denies any pain with palpation. Bowel sounds hypoactive to all quadrants.
--- NOTE | 2023-12-17 08:41 | PM.GSCN ---
History of Present Illness Consult details Date Seen: 12/17/23 Consult date: 12/17/23 Narrative: The patient is an 88-year-old female who presented to the emergency room last evening with abdominal pain and vomiting. She states that yesterday she was feeling fine and went to [facility] event and 8. Around mid day she developed pain in her mid abdomen. She then was significantly nauseated and retching. She states that the pain was a 6 to 7/10. She tried taking Tums and switching to a clear liquid diet, however she tried to eat broth in the evening and could not finish it. She came into the hospital and was found to have a bowel obstruction on CT scan. An NG was placed and she felt significantly better. 500 mL were out. She had a bowel movement yesterday. This was small. She has not been passing any gas. She has not had any fevers. She feels much better but has been belching. Her pain is now a 1 to 2/10 if at all. Lies over her history is that of in 2020 she presented to a hospital near her [facility] [place] with a bowel obstruction. She was managed they were conservatively and failed to resolve. 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 Pathology showed this possibly secondary to intussusception. She was doing fine however in February of 2022 she was again admitted with a small-bowel obstruction. He walks she was managed non operatively and resolved within 1 day. For him over in July 2022 she was traveling in [facility] and developed a bowel obstruction again. She had a Gastrografin challenge and failed this. She underwent laparotomy in [facility] with lysis of adhesions. After we she does not have her records, however she knows that they did not resect any bowel. She has been doing fine until yesterday. The patient states she is rebound tachycardia when she has not taken her metoprolol. She states she did take it yesterday morning. [facility] Medical History (Updated 12/17/23 @ 09:02 by Nevaeh Flores MD) Small bowel obstruction ?K56.609 - Unspecified intestinal obstruction, unspecified as to partial versus complete obstruction (ICD-10) Postoperative ileus ?K91.89 - Other postprocedural complications and disorders of digestive system (ICD-10) ?K56.7 - Ileus, unspecified (ICD-10) Postoperative hypoxia ?R09.02 - Hypoxemia (ICD-10) ?Z98.890 - Other specified postprocedural states (ICD-10) Anemia following surgery ?D64.9 - Anemia, unspecified (ICD-10) Strain of right hip ?S76.011A - Strain of muscle, fascia and tendon of right hip, initial encounter (ICD-10) Sigmoid diverticulosis ?K57.30 - Diverticulosis of large intestine without perforation or abscess without bleeding (ICD-10) Arthritis ?M19.90 - Unspecified osteoarthritis, unspecified site (ICD-10) GERD (gastroesophageal reflux disease) ?K21.9 - Gastro-esophageal reflux disease without esophagitis (ICD-10) Atrial fibrillation ?I48.91 - Unspecified atrial fibrillation (ICD-10) Hypothyroid ?E03.9 - Hypothyroidism, unspecified (ICD-10) Surgical History (Updated 12/17/23 @ 08:57 by Nevaeh Flores MD) S/P laparotomy with lysis of adhesions ?Z98.890 - Other specified postprocedural states (ICD-10) 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) ?Z98.890 - Other specified postprocedural states (ICD-10) History of ankle surgery (12/04/92) ?Z98.890 - Other specified postprocedural states (ICD-10) 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) ?Z96.651 - Presence of right artificial knee joint (ICD-10) S/P left unicompartmental knee replacement (08/07/13) ?Z96.652 - Presence of left artificial knee joint (ICD-10) History of surgery on lower extremity (12/04/92) ?Z98.890 - Other specified postprocedural states (ICD-10) 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 She lives in [place] with her . She does not smoke. She drinks 1 glass of wine a day. What is your current living situation?: I presently have a place to live Problems where you live: no known problems Problems where you live details: NA In the past 12 months, utilities in danger of being shut off: no In past 12 months, lack of transportation kept you from medical appts, meetings, work, or getting things needed for daily living: no In the past 12 mos, have been you worried that your food would run out before you had money to buy more?: never true In the past 12 mos, the food you bought just didn't last and you didn't have money to buy more?: never true Highest level of school completed/degree received: Associate degree: occupational, technical, vocational program Smoking Status: Former smoker What tobacco products do you use: cigarettes Smoking quit date/years: >15 years ago Do you use any of these nicotine containing products: None Second hand tobacco smoke exposure: No How often do you have a drink containing alcohol: 4 or more times a week Alcohol type: wine Alcohol type details: daily glass of wine How many standard drinks containing alcohol do you have on a typical day: 1 or 2 How often do you have six or more drinks on one occasion: Never AUDIT-C Alcohol total score: 4 Non-prescribed substance use: denies use Caffeine: Yes How often does anyone, including family, friends and others, physically hurt you: never How often does anyone, including family, friends and others, insult or talk down to you: never How often does anyone, including family, friends and others, threaten you with harm: never How often does anyone, including family, friends and others, scream or curse at you: never service: No Meds Home Medications and Allergies Home Medications Medication Instructions Recorded Confirmed Type cetirizine 10 mg tablet 10 mg PO DAILY PRN 08/05/22 09/23/23 History levothyroxine 75 mcg tablet 75 mcg PO DAILY 08/05/22 12/17/23 History lisinopril 5 mg tablet 5 mg PO HS 08/05/22 12/17/23 History melatonin 5 mg capsule 5 mg PO HS 08/05/22 09/23/23 History metoprolol tartrate 50 mg tablet 50 mg PO BID 08/05/22 12/17/23 History multivitamin 1 tab PO DAILY 08/05/22 09/23/23 History naproxen 250 mg tablet 250 mg PO BID PRN 04/12/23 09/23/23 History omega [id number] oil 60 mg-90 1 cap PO BID 04/12/23 09/23/23 History mg-500 mg capsule (Fish Oil) calcium carbonate 500 mg calcium 500 mg PO QDAY 09/23/23 09/23/23 History (1,250 mg) chewable tablet (Calcium 500) Allergies Allergy/AdvReac Type Severity Reaction Status Date / Time cat dander Allergy Verified 09/23/23 08:54 perfume Allergy Verified 09/23/23 08:54 Exam Narrative: Exam Narrative: General appearance: Alert, cooperative, and in no distress Eyes: PERRLA, eye lids clear, and sclera white HENT Head: Normocephalic Ears: External ears normal NG with minimal clear output. Pulmonary: Breathing nonlabored on room air Cardiovascular Heart: Mildly tachycardic with a heart rate of 101 Extremities: warm and well perfused Gastrointestinal Abdominal: Soft minimally tender. Distended. Scar noted from prior surgeries. No guarding or rebound. Musculoskeletal: Extremities: Upper: Both upper extremities have normal joint range of motion and intact strength. Lower: Both lower extremities have normal joint range of motion and intact strength. Skin: Normal skin color, texture, and turgor. Neurologic: No focal deficits Psychiatric: Alert, oriented, cooperative, normal affect. Const: Vital Signs, click to edit/add: Vital Signs - 24 hr 12/16/23 21:21 12/16/23 21:24 12/16/23 21:25 Temperature 97.8 F Pulse Rate 96 96 Pulse Rate [Left P ulse Oximeter] 94 Respiratory Rate 16 Blood Pressure 160/86 H Blood Pressure [Ri ght Arm] Blood Pressure [Ri ght Upper Arm] 160/86 H Pulse Oximetry 98 94 97 Oxygen Delivery Me thod Room Air 12/16/23 21:30 12/16/23 21:32 12/16/23 21:45 Temperature Pulse Rate 87 87 88 Pulse Rate [Left P ulse Oximeter] Respiratory Rate Blood Pressure 160/76 H Blood Pressure [Ri ght Arm] Blood Pressure [Ri ght Upper Arm] Pulse Oximetry 96 95 96 Oxygen Delivery Me thod 12/16/23 22:14 12/16/23 22:15 12/16/23 22:30 Temperature Pulse Rate 90 93 84 Pulse Rate [Left P ulse Oximeter] Respiratory Rate Blood Pressure Blood Pressure [Ri ght Arm] Blood Pressure [Ri ght Upper Arm] Pulse Oximetry 97 95 87 L Oxygen Delivery Me thod 12/16/23 22:31 12/16/23 22:32 12/16/23 22:58 Temperature Pulse Rate 83 87 96 Pulse Rate [Left P ulse Oximeter] Respiratory Rate Blood Pressure 122/67 Blood Pressure [Ri ght Arm] Blood Pressure [Ri ght Upper Arm] Pulse Oximetry 88 84 L [facility] 12/16/23 23:03 12/16/23 23:15 Temperature Pulse Rate 99 96 108 H Pulse Rate [Left P ulse Oximeter] Respiratory Rate Blood Pressure 133/68 Blood Pressure [Ri ght Arm] Blood Pressure [Ri ght Upper Arm] Pulse Oximetry 95 96 98 [facility]16/23 23:30 12/16/23 23:32 12/16/23 23:45 Temperature Pulse Rate 93 90 Pulse Rate [Left P ulse Oximeter] Respiratory Rate Blood Pressure 152/79 H Blood Pressure [Ri ght Arm] Blood Pressure [Ri ght Upper Arm] Pulse Oximetry 84 L 92 91 Oxygen Delivery Ok thod 12/17/23 00:00 12/17/23 00:01 12/17/23 00:01 Temperature Pulse Rate 96 94 94 Pulse Rate [Left P ulse Oximeter] Respiratory Rate Blood Pressure 150/77 H 150/77 H Blood Pressure [Ri ght Arm] Blood Pressure [Ri ght Upper Arm] Pulse Oximetry 94 94 94 Oxygen Delivery Ok thod 12/17/23 00:01 12/17/23 00:01 12/17/23 00:02 Temperature Pulse Rate 94 94 93 Pulse Rate [Left P ulse Oximeter] Respiratory Rate Blood Pressure 150/77 H 150/77 H Blood Pressure [Ri ght Arm] Blood Pressure [Ri ght Upper Arm] Pulse Oximetry 94 94 93 Oxygen Delivery Me thod 12/17/23 00:15 12/17/23 00:30 12/17/23 00:31 Temperature Pulse Rate 93 91 90 Pulse Rate [Left P ulse Oximeter] Respiratory Rate Blood Pressure 130/94 H Blood Pressure [Ri ght Arm] Blood Pressure [Ri ght Upper Arm] Pulse Oximetry 94 89 91 Oxygen Delivery Me thod 12/17/23 00:45 12/17/23 01:20 12/17/23 01:20 Temperature 98.4 F Pulse Rate 96 Pulse Rate [Left P ulse Oximeter] 92 Respiratory Rate 20 20 Blood Pressure Blood Pressure [Ri ght Arm] 146/77 H Blood Pressure [Ri ght Upper Arm] Pulse Oximetry 91 95 95 Oxygen Delivery Me thod Room Air Room Air 12/17/23 03:00 Temperature 98.3 F Pulse Rate Pulse Rate [Left P ulse Oximeter] 105 H Respiratory Rate 16 Blood Pressure Blood Pressure [Ri ght Arm] 117/67 Blood Pressure [Ri ght Upper Arm] Pulse Oximetry 93 Oxygen Delivery Me thod Room Air Results Labs Labs: Abnormal lab results 12/16/23 12/16/23 12/16/23 Range/Units 21:43 21:50 22:05 WBC 13.05 H (4.50-11.00) K/uL Neut % (Auto) 88.2 H (42.0-72.0) % Lymph % (Auto) 3.9 L (20-44) % Neut # (Auto) 11.50 H (1.7-7.0) K/uL Lymph # (Auto) 0.50 L (0.90-2.90) K/uL Sodium 129 L (135-149) mmol/L Chloride 95 L (96-114) mmol/L Glucose 160 H (60-115) mg/dL AST 36 H (12-35) U/L Amylase 110 H (18-89) U/L Urine Ketones 2+ A (Negative) Urine Blood Trace-intact A (Negative) Urine Nitrite Positive A (Negative) Urine WBC 5-10 A (0-5) Urine Bacteria Many A (None) POC Troponin I 0.00 L (0.01-0.04) ng/ml 12/17/23 Range/Units 02:05 WBC 13.09 H (4.50-11.00) K/uL Neut % (Auto) 90.4 H (42.0-72.0) % Lymph % (Auto) 2.5 L (20-44) % Neut # (Auto) 11.80 H (1.7-7.0) K/uL Lymph # (Auto) 0.30 L (0.90-2.90) K/uL Sodium 133 L (135-149) mmol/L Chloride (96-114) mmol/L Glucose 139 H (60-115) mg/dL AST (12-35) U/L Amylase (18-89) U/L Urine Ketones (Negative) Urine Blood (Negative) Urine Nitrite (Negative) Urine WBC (0-5) Urine Bacteria (None) POC Troponin I (0.01-0.04) ng/ml Diabetes panel 12/16/23 12/17/23 Range/Units 21:50 02:05 Sodium 129 L 133 L (135-149) mmol/L Potassium 4.2 4.5 (3.6-5.1) mmol/L Chloride 95 L 98 (96-114) mmol/L Carbon Dioxide 25 26 (20-32) mmol/L BUN 28 23 (7-30) mg/dL Creatinine 0.7 0.7 (0.5-1.5) mg/dL Glucose 160 H 139 H (60-115) mg/dL Calcium 10.4 9.9 (8.4-10.6) mg/dL AST 36 H (12-35) U/L ALT 26 (4-35) U/L Alkaline Phosphatase 84 (40-150) U/L Total Protein 7.7 (6.0-8.3) g/dL Albumin 4.5 (3.3-5.0) g/dL Calcium panel 12/16/23 12/17/23 Range/Units 21:50 02:05 Calcium 10.4 9.9 (8.4-10.6) mg/dL Albumin 4.5 (3.3-5.0) g/dL Pituitary panel 12/16/23 12/17/23 Range/Units 21:50 02:05 Sodium 129 L 133 L (135-149) mmol/L Potassium 4.2 4.5 (3.6-5.1) mmol/L Chloride 95 L 98 (96-114) mmol/L Carbon Dioxide 25 26 (20-32) mmol/L BUN 28 23 (7-30) mg/dL Creatinine 0.7 0.7 (0.5-1.5) mg/dL Glucose 160 H 139 H (60-115) mg/dL Calcium 10.4 9.9 (8.4-10.6) mg/dL Adrenal panel 12/16/23 12/17/23 Range/Units 21:50 02:05 Sodium 129 L 133 L (135-149) mmol/L Potassium 4.2 4.5 (3.6-5.1) mmol/L Chloride 95 L 98 (96-114) mmol/L Carbon Dioxide 25 26 (20-32) mmol/L BUN 28 23 (7-30) mg/dL Creatinine 0.7 0.7 (0.5-1.5) mg/dL Glucose 160 H 139 H (60-115) mg/dL Calcium 10.4 9.9 (8.4-10.6) mg/dL Total Bilirubin 0.9 (0.1-1.5) mg/dL AST 36 H (12-35) U/L ALT 26 (4-35) U/L Alkaline Phosphatase 84 (40-150) U/L Total Protein 7.7 (6.0-8.3) g/dL Albumin 4.5 (3.3-5.0) g/dL All other labs normal. Progress Note:A&P Assessment and plan (1) Small bowel obstruction: Status: Acute (2) Hyponatremia: Status: Acute (3) Leukocytosis: Status: Acute Plan The patient is an 88-year-old female with now her 4th small-bowel obstruction in the past 3 years. She feels significantly better today, however I am concerned because of radiology comments of mesenteric swirling about the anastomosis, inspissated stool noted in this area as well as well as her white blood cell count of 13 and her tachycardia of 102. However her abdominal exam is very benign overall except for persistent distension. I explained to the patient that if she has a bowel obstruction and there is any bowel compromise then obviously she will need surgery in certainly we would not want to delay this. However, her lactate is normal and she feels significantly better and has a not had any pain medication overnight. We discussed that since her white blood cell count remained at 13 when it was rechecked only a few hours later, that potentially we could recheck this this morning to see if there is any improvement. If she continues to have tachycardia (though the patient states she does get rebound tachycardia) and her white blood cell count is not improving, then we may have to explore her. If not, then I would plan on a Gastrografin challenge again. It is unusual that she would have so many bowel obstructions requiring surgical intervention in such a short time; unless she is obstructed at her anastomosis. -the patient is agreeable this plan and would like to avoid surgery if possible, however again I stressed that the CT findings and her tachycardia as well as her white blood cell count are concerning to me. I will reassess her this morning.
[2023-12-17] MEDS: SODIUM CHLORIDE 0.9 % (FLUSH) 10 ML SYRINGE 5 ML IVF ×2 (08:43→21:35)
[2023-12-17 11:13] LABS: Basophils Absolute Auto 0.02 K/uL (0.00-0.30); Basophils Percent Auto 0.4 % (0.0-3.0); Eosinophils Absolute Auto 0.15 K/uL (0.00-0.50); Eosinophils Percent Auto 2.7 % (0.0-7.0); Hematocrit 35.7 % (33.0-51.0); Hemoglobin* 11.6 gm/dL (12.0-16.0); Lymphocytes Percent Auto 6.9 % (20-44); Mean Corpuscular HGB Conc 33 gm/dL (32-36); Mean Corpuscular Hemoglobin 31 pg (26-34); Mean Corpuscular Volume 95 fL (80-100); Monocytes Percent Auto 22.3 % (0.0-11.0); Neutrophils Absolute Auto 3.82 K/uL (1.7-7.0); Neutrophils Percent Auto 67.7 % (42.0-72.0); Platelet Count* 244 K/uL (140-440); RDW Coefficient of Variation % 14.6 % (11.5-15.5); Red Blood Count 3.76 m/uL (4.00-5.20); White Blood Count* 5.64 K/uL (4.50-11.00)
[2023-12-17 11:14] LABS: Slide Review Reflex No
[2023-12-17] MEDS: LACTATED RINGERS 500 ML 500 ML IV (12:29)
[2023-12-17] MEDS: LACTATED RINGERS 1000 ML 1,000 ML 100 ML IV ×2 (13:46→23:24)
--- NOTE | 2023-12-17 15:33 | PC.NURSE ---
Patient alert and oriented x4. Ambulates in the hallways independently. NG tube intact at 60cm in the right nare. Patient reports feeling better than when she first came in to the hospital. Reports passing gas. Had a small formed BM this shift. Vital signs stable.
--- NOTE | 2023-12-17 17:13 | P.IMPN_ITS ---
Progress Note: A&P Assessment and plan (1) Small bowel obstruction: Problem details: Patient is currently doing well. Continue monitoring for 1 more day to assure she can tolerate a regular diet Status: Resolved (2) Hyponatremia: Problem details: Improved. Sodium 133 at discharge Status: Acute (3) Leukocytosis: Problem details: Continue to monitor Status: Resolved (4) Urinary tract infection: Problem details: Asymptomatic Status: Resolved (5) Hypertension: Problem details: Blood pressure improved after return to normal oral hypertensives Status: Inactive Plan Continue in hospital for management of small bowel obstruction. Continue to manage other chronic medical problems as well. Time Spent With Patient Total time spent: Total time spent today is 60 minutes, 40 minutes in coordination of care discussing with patient and other providers management of small bowel obstruction. 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 In 2020 she develped a small bowel obstruction (surgical history of tubal ligation) that did not resolve with conservative management and she underwent laparotomy and small bowel resection. She later developed an additional SBO in [facility] and was treated there with surgery after a failed gastrograffin challenge - lysis of adhesions was performed. In February 2022, she again developed a small bowel obstruction and was managed conservatively - there was a mesenteric swirl noted. She presents with pain, nausea and vomiting which began today. CT shows mesenteric swirling again with more remarkable distension than CT from 2021. Discussed this with the radiologist. No signs of bowel ischemia though transition points are noted with mesenteric edema. The patient is noted to have a WBC of 13. She is hyponatremic but lactate normal. NG was placed and patient had marked improvement in symptoms. CT findings are concerning; however, she has now had two surgeries within 3 years for bowel obstruction and has been managed conservatively previously with mesenteric swirling noted on CT. Overnight she continued to clinically improved. She feels better today. She has had minimal output from her NG tube. She is not passing gas. She did have a very small formed stool. No significant abdominal pain. Exam Narrative: Exam Narrative: She is alert and appears in no distress. She is oriented to her circumstances. Respirations are clear to auscultation. Cardiovascular: S1, S2, regular rate and rhythm. No murmur gallop or rub. Abdomen: Bowel sounds are absent. Abdomen is soft without significant tenderness. Extremities without edema. Const: Vital Signs, click to edit/add: Vital Signs - 24 hr 12/16/23 21:21 12/16/23 21:24 12/16/23 21:25 Temperature 97.8 F Pulse Rate 96 96 Pulse Rate [Left P ulse Oximeter] 94 Respiratory Rate 16 Blood Pressure 160/86 H Blood Pressure [Ri ght Arm] Blood Pressure [Ri ght Upper Arm] 160/86 H Pulse Oximetry 98 94 97 [facility] 12/16/23 21:30 12/16/23 21:32 12/16/23 21:45 Temperature Pulse Rate 87 87 88 Pulse Rate [Left P ulse Oximeter] Respiratory Rate Blood Pressure 160/76 H Blood Pressure [Ri ght Arm] Blood Pressure [Ri ght Upper Arm] Pulse Oximetry 96 95 96 [facility] 12/16/23 22:14 12/16/23 22:15 12/16/23 22:30 Temperature Pulse Rate 90 93 84 Pulse Rate [Left P ulse Oximeter] Respiratory Rate Blood Pressure Blood Pressure [Ri ght Arm] Blood Pressure [Ri ght Upper Arm] Pulse Oximetry 97 95 87 L [facility] 12/16/23 22:31 12/16/23 22:32 12/16/23 22:58 Temperature Pulse Rate 83 87 96 Pulse Rate [Left P ulse Oximeter] Respiratory Rate Blood Pressure 122/67 Blood Pressure [Ri ght Arm] Blood Pressure [Ri ght Upper Arm] Pulse Oximetry 88 84 L 95 [facility] 12/16/23 23:00 12/16/23 23:03 12/16/23 23:15 Temperature Pulse Rate 99 96 108 H Pulse Rate [Left P ulse Oximeter] Respiratory Rate Blood Pressure 133/68 Blood Pressure [Ri ght Arm] Blood Pressure [Ri ght Upper Arm] Pulse Oximetry 95 96 98 [facility] 12/16/23 23:30 12/16/23 23:32 12/16/23 23:45 Temperature Pulse Rate 93 90 Pulse Rate [Left P ulse Oximeter] Respiratory Rate Blood Pressure 152/79 H Blood Pressure [Ri ght Arm] Blood Pressure [Ri ght Upper Arm] Pulse Oximetry 84 L 92 91 [facility] 12/17/23 00:00 12/17/23 00:01 12/17/23 00:01 Temperature Pulse Rate 96 94 94 Pulse Rate [Left P ulse Oximeter] Respiratory Rate Blood Pressure 150/77 H 150/77 H Blood Pressure [Ri ght Arm] Blood Pressure [Ri ght Upper Arm] Pulse Oximetry 94 94 94 Oxygen Delivery Me thod 12/17/23 00:01 12/17/23 00:01 12/17/23 00:02 Temperature Pulse Rate 94 94 93 Pulse Rate [Left P ulse Oximeter] Respiratory Rate Blood Pressure 150/77 H 150/77 H Blood Pressure [Ri ght Arm] Blood Pressure [Ri ght Upper Arm] Pulse Oximetry 94 94 93 Oxygen Delivery Me thod 12/17/23 00:15 12/17/23 00:30 12/17/23 00:31 Temperature Pulse Rate 93 91 90 Pulse Rate [Left P ulse Oximeter] Respiratory Rate Blood Pressure 130/94 H Blood Pressure [Ri ght Arm] Blood Pressure [Ri ght Upper Arm] Pulse Oximetry 94 89 91 Oxygen Delivery Me thod 12/17/23 00:45 12/17/23 01:20 12/17/23 01:20 Temperature 98.4 F Pulse Rate 96 Pulse Rate [Left P ulse Oximeter] 92 Respiratory Rate 20 20 Blood Pressure Blood Pressure [Ri ght Arm] 146/77 H Blood Pressure [Ri ght Upper Arm] Pulse Oximetry 91 95 95 Oxygen Delivery Me thod Room Air Room Air 12/17/23 03:00 12/17/23 07:00 12/17/23 08:45 Temperature 98.3 F 99.0 F Pulse Rate Pulse Rate [Left P ulse Oximeter] 105 H 102 H 102 H Respiratory Rate 16 14 14 Blood Pressure Blood Pressure [Ri ght Arm] 117/67 143/81 H Blood Pressure [Ri ght Upper Arm] Pulse Oximetry 93 93 Oxygen Delivery Me thod Room Air Room Air 12/17/23 09:00 12/17/23 11:00 12/17/23 15:00 Temperature 97.8 F Pulse Rate Pulse Rate [Left P ulse Oximeter] 92 113 H Respiratory Rate 16 16 Blood Pressure Blood Pressure [Ri ght Arm] 143/81 H 121/72 Blood Pressure [Ri ght Upper Arm] Pulse Oximetry 96 Oxygen Delivery Me thod Room Air 12/17/23 15:00 Temperature 98.9 F Pulse Rate Pulse Rate [Left P ulse Oximeter] 113 H Respiratory Rate 16 Blood Pressure Blood Pressure [Ri ght Arm] 131/73 Blood Pressure [Ri ght Upper Arm] Pulse Oximetry 96 Oxygen Delivery Me thod Room Air Documenting provider has reviewed patient's vital signs: yes Labs Labs: Laboratory Results - last 24 hr 12/16/23 12/16/23 12/16/23 21:43 21:50 22:05 WBC 13.05 H RBC 4.24 Hgb 13.1 Hct 39.9 MCV 94 MCH 31 MCHC 33 RDW Coeff of [place]ina 14.3 Plt Count 272 Neut % (Auto) 88.2 H Lymph % (Auto) 3.9 L [place] % (Auto) 6.1 Eos % (Auto) 1.4 Baso % (Auto) 0.2 Neut # (Auto) 11.50 H Lymph # (Auto) 0.50 L [place] # (Auto) 0.80 Eos # (Auto) 0.20 Baso # (Auto) 0.00 Abs Immat Gran (auto) 0.00 Imm/Tot Granulo (auto) 0.2 Sodium 129 L Potassium 4.2 Chloride 95 L Carbon Dioxide 25 Anion Gap 9 BUN 28 Creatinine 0.7 Estimated GFR 84 Glucose 160 H Lactate 1.1 Calcium 10.4 Total Bilirubin 0.9 Direct Bilirubin 0.1 AST 36 H ALT 26 Alkaline Phosphatase 84 C-Reactive Protein 0.5 Total Protein 7.7 Albumin 4.5 Amylase 110 H Lipase 93 Urine Color Yellow Urine Appearance Clear Urine pH 6.0 Ur Specific [place] 1.025 Urine Protein Negative Urine Glucose (UA) Negative Urine Ketones 2+ A Urine Blood Trace-intact A Urine Nitrite Positive A Urine Bilirubin Negative Urine Urobilinogen 0.2 Ur Leukocyte Esterase Negative Urine RBC 0-2 Urine WBC 5-10 A Ur Squamous Epith Cells None Urine Bacteria Many A SARS-CoV-2 (PCR) Negative SARS-CoV-2 Influenza Type A (PCR) Negative PCR FLU A Influenza Type B (PCR) Negative PCR FLU B RSV (PCR) Negative PCR RSV POC Troponin I 0.00 L 12/17/23 12/17/23 02:05 11:07 WBC 13.09 H 5.64 RBC 4.23 3.76 L Hgb 13.1 11.6 L Hct 40.0 35.7 MCV 95 95 MCH 31 31 MCHC 33 33 RDW Coeff of [place] 14.5 14.6 Plt Count 275 244 Neut % (Auto) 90.4 H 67.7 Lymph % (Auto) 2.5 L 6.9 L [place] % (Auto) 5.7 22.3 H Eos % (Auto) 0.3 2.7 Baso % (Auto) 0.1 0.4 Neut # (Auto) 11.80 H 3.82 Lymph # (Auto) 0.30 L 0.40 L [place] # (Auto) 0.70 1.30 H Eos # (Auto) 0.00 0.15 Baso # (Auto) 0.00 0.02 Abs Immat Gran (auto) 0.10 0.00 Imm/Tot Granulo (auto) 1.0 0.0 Sodium 133 L Potassium 4.5 Chloride 98 Carbon Dioxide 26 Anion Gap 9 BUN 23 Creatinine 0.7 Estimated GFR 84 Glucose 139 H Lactate 0.8 Calcium 9.9 Total Bilirubin Direct Bilirubin AST ALT Alkaline Phosphatase C-Reactive Protein Total Protein Albumin Amylase Lipase Urine Color Urine Appearance Urine pH Ur Specific [place] Urine Protein Urine Glucose (UA) Urine Ketones Urine Blood Urine Nitrite Urine Bilirubin Urine Urobilinogen Ur Leukocyte Esterase Urine RBC Urine WBC Ur Squamous Epith Cells Urine Bacteria SARS-CoV-2 (PCR) Influenza Type A (PCR) Influenza Type B (PCR) RSV (PCR) POC Troponin I
[2023-12-18 03:07] VITALS: BP 142/83; PULSE 83; RESP 18; TEMP 37.1; O2SAT 94
[2023-12-18] MEDS: METOPROLOL TARTRATE 1 MG/ML inj 10 MG IVP (03:10)
[2023-12-18] MEDS: SODIUM CHLORIDE 0.9 % (FLUSH) 10 ML SYRINGE 5 ML IVF ×3 (03:11→20:55)
[2023-12-18] MEDS: LEVOTHYROXINE 75 MCG TABLET PO (05:17)
--- NOTE | 2023-12-18 05:26 | PC.NURSE ---
[id number]: Patient pleasant and cooperative. Up independent in room and ambulated halls x1. Abdominal pain 1-01/07. Gastrografin administered at 2200. Patient tolerated well. Passing gas and BMx8 during shift. NG hooked to gravity flow 2 Hr after Gastrografin administration per Dr. Flores's verbal order. Denies N/V.
[2023-12-18 06:43] LABS: Basophils Absolute Auto 0.01 K/uL (0.00-0.30); Basophils Percent Auto 0.2 % (0.0-3.0); Eosinophils Absolute Auto 0.31 K/uL (0.00-0.50); Eosinophils Percent Auto 5.6 % (0.0-7.0); Hematocrit 32.2 % (33.0-51.0); Hemoglobin* 10.5 gm/dL (12.0-16.0); Immature Granulocytes Abs Auto 0.02 K/uL (0.00-0.30); Immature Granulocytes Pct Auto 0.4 %; Lymphocytes Percent Auto 11.3 % (20-44); Mean Corpuscular HGB Conc 33 gm/dL (32-36); Mean Corpuscular Hemoglobin 31 pg (26-34); Mean Corpuscular Volume 96 fL (80-100); Monocytes Percent Auto 14.8 % (0.0-11.0); Neutrophils Absolute Auto 3.72 K/uL (1.7-7.0); Neutrophils Percent Auto 67.7 % (42.0-72.0); Platelet Count* 219 K/uL (140-440); RDW Coefficient of Variation % 14.7 % (11.5-15.5); Red Blood Count 3.34 m/uL (4.00-5.20); White Blood Count* 5.49 K/uL (4.50-11.00)
[2023-12-18 06:44] LABS: Slide Review Reflex No
[2023-12-18 06:50] LABS: Chloride* 104 mmol/L (96-114); Potassium* 3.9 mmol/L (3.6-5.1); Sodium* 136 mmol/L (135-149)
[2023-12-18 06:53] LABS: Creatinine* 0.6 mg/dL (0.5-1.5); Est. Creatinine Clearance* 33.41; Estimated Glomerular Filt Rate 87 ml/min
[2023-12-18 06:54] LABS: Anion Gap 9 mEq/L (7-15); Blood Urea Nitrogen* 20 mg/dL (7-30); Carbon Dioxide* 23 mmol/L (20-32); Glucose* 87 mg/dL (60-115)
[2023-12-18 06:57] LABS: C Reactive Protein* 4.1 mg/dL (0.5-1.0)
[2023-12-18 07:00] VITALS: BP 131/68; PULSE 104; RESP 18; TEMP 36.7; O2SAT 95
--- NOTE | 2023-12-18 07:00 | CRLHL7_ITS ---
For Patients: As a result of the Century Cures Act, medical imaging exams and procedure reports are released immediately into your electronic medical record. You may view this report before your referring provider. If you have questions, please contact your health care provider. INDICATION: Post Gastrografin TECHNIQUE: Two view abdomen. FINDINGS: NG tube in the stomach. There is contrast opacified colon to level of the rectum. Paucity of small bowel gas. No free air. Nondilated colonic bowel loops. Dictated by Breonna Yeboah MD @ 12/18/2023 9:12:03 AM (Electronically Signed)
--- NOTE | 2023-12-18 09:14 | PM.GSPN ---
Subjective Subjective Date Seen: 12/18/23 Interval history: Areli had multiple bowel movements overnight. She is feeling well. No abdominal pain. She does feel slightly distended still, however feels much better. Exam Narrative: Exam Narrative: General: No acute distress Abdomen: Still mildly distended. Nontender. Const: Vital Signs, click to edit/add: Vital Signs - 24 hr 12/17/23 11:00 12/17/23 15:00 12/17/23 15:00 Temperature 97.8 F 98.9 F Pulse Rate [Left P ulse Oximeter] 92 113 H 113 H Respiratory Rate 16 16 16 Blood Pressure [Ri ght Arm] 121/72 131/73 Pulse Oximetry 96 96 Oxygen Delivery Me thod Room Air Room Air 12/17/23 19:47 12/17/23 22:13 12/18/23 03:07 Temperature 98.5 F 98.2 F 98.7 F Pulse Rate [Left P ulse Oximeter] 100 85 83 Respiratory Rate 18 16 18 Blood Pressure [Ri ght Arm] 107/73 145/72 H 142/83 H Pulse Oximetry 96 94 94 Oxygen Delivery Me thod Room Air Room Air Room Air 12/18/23 07:00 12/18/23 07:00 Temperature 98.0 F Pulse Rate [Left P ulse Oximeter] 104 H 104 H Respiratory Rate 18 18 Blood Pressure [Ri ght Arm] 131/68 Pulse Oximetry 95 Oxygen Delivery Me thod Room Air Labs/Imaging Imaging Imaging: X-ray reviewed. Appears as though the contrast has passed into the colon. No obvious large small bowel loops noted. We will wait to radiology read. Progress Note:A&P Assessment and plan (1) Small bowel obstruction: Status: Acute Plan The patient is an 88-year-old female with a small-bowel obstruction which now peers to have resolved. NG tube removed this morning. We will advance her diet to clear liquids today. If clear liquids go well, we can advance her to full liquids later today and regular diet tomorrow. She may potentially be able to discharge home tomorrow.
[2023-12-18 09:41] LABS: Troponin I* 0.02 ng/mL (0.01-0.04)
[2023-12-18] MEDS: METOPROLOL TARTRATE 50 MG TABLET PO ×2 (09:56→20:55)
[2023-12-18 15:00] VITALS: BP 150/74; PULSE 79; RESP 18; TEMP 37.2; O2SAT 97
--- NOTE | 2023-12-18 15:56 | PM.IMPN1 ---
Progress Note: A&P Assessment and plan (1) Small bowel obstruction: Problem details: Patient is currently doing well. Continue to coordinate with General surgery regarding ongoing plan of care and need for recurrent operation. In the meantime conservative management. Status: Acute (2) Tachycardia: Problem details: Mildly irregular tachycardia. EKG shows a mildly irregular sinus tachycardia with left bundle branch block. Likely this wrap full lacks reduction in beta-reyes dose rather than acute cardiac or other illness. Resume normal metoprolol and monitor. Status: Acute (3) Left bundle branch block: Status: Acute Plan Remove NG. DC IV fluids. Advanced diet. Switch to oral medications. Probable discharge tomorrow if tolerating p.o. 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 In 2020 she develped a small bowel obstruction (surgical history of tubal ligation) that did not resolve with conservative management and she underwent laparotomy and small bowel resection. She later developed an additional SBO in [facility] [place][Note 2] and was treated there with surgery after a failed gastrograffin challenge - lysis of adhesions was performed. In February 2022, she again developed a small bowel obstruction and was managed conservatively - there was a mesenteric swirl noted. She presents with pain, nausea and vomiting which began today. CT shows mesenteric swirling again with more remarkable distension than CT from 2021. Discussed this with the radiologist. No signs of bowel ischemia though transition points are noted with mesenteric edema. The patient is noted to have a WBC of 13. She is hyponatremic but lactate normal. NG was placed and patient had marked improvement in symptoms. CT findings are concerning; however, she has now had two surgeries within 3 years for bowel obstruction and has been managed conservatively previously with mesenteric swirling noted on CT. Overnight she continued to clinically improved. Overnight she has had multiple stools. No abdominal pain. She otherwise feels well. Minimal NG output Exam Narrative: Exam Narrative: She is alert and appears in no distress mood and affect are bright. Respirations are clear to auscultation. Cardiovascular: S1, S2, irregular tachycardia. Abdomen is soft she has no tenderness. Bowel sounds are active. Const: Vital Signs, click to edit/add: Vital Signs - 24 hr 12/17/23 19:47 12/17/23 22:13 12/18/23 03:07 Temperature 98.5 F 98.2 F 98.7 F Pulse Rate [Left P ulse Oximeter] 100 85 83 Respiratory Rate 18 16 18 Blood Pressure [Ri ght Arm] 107/73 145/72 H 142/83 H Pulse Oximetry 96 94 94 Oxygen Delivery Me thod Room Air Room Air Room Air 12/18/23 07:00 12/18/23 07:00 12/18/23 15:00 Temperature 98.0 F 98.9 F Pulse Rate [Left P ulse Oximeter] 104 H 104 H 79 Respiratory Rate 18 18 18 Blood Pressure [Ri ght Arm] 131/68 150/74 H Pulse Oximetry 95 97 Oxygen Delivery Me thod Room Air Room Air 12/18/23 15:00 Temperature Pulse Rate [Left P ulse Oximeter] 79 Respiratory Rate 18 Blood Pressure [Ri ght Arm] Pulse Oximetry Oxygen Delivery Me thod Documenting provider has reviewed patient's vital signs: yes Labs Labs: Laboratory Results - last 24 hr 12/18/23 12/18/23 06:22 09:17 WBC 5.49 RBC 3.34 L Hgb 10.5 L Hct 32.2 L MCV 96 MCH 31 MCHC 33 RDW Coeff of [place] 14.7 Plt Count 219 Neut % (Auto) 67.7 Lymph % (Auto) 11.3 L [place] % (Auto) 14.8 H Eos % (Auto) 5.6 Baso % (Auto) 0.2 Neut # (Auto) 3.72 Lymph # (Auto) 0.60 L [place] # (Auto) 0.80 Eos # (Auto) 0.31 Baso # (Auto) 0.01 Abs Immat Gran (auto) 0.02 Imm/Tot Granulo (auto) 0.4 Sodium 136 Potassium 3.9 Chloride 104 Carbon Dioxide 23 Anion Gap 9 BUN 20 Creatinine 0.6 Estimated Creat Clear 33.41 Estimated GFR 87 Glucose 87 Calcium 9.0 Troponin I 0.02 C-Reactive Protein 4.1 H TSH 1.090 Lab Acknowledgement Test Added
[2023-12-18 19:00] VITALS: BP 168/75; PULSE 79; RESP 16; TEMP 36.4; O2SAT 93
--- NOTE | 2023-12-18 19:24 | PC.NURSE ---
End of shift: patient is alert and oriented, very pleasant and cooperative. Voiding, passing gas and having BM's throughout day. Patient tolerating a clear liquid diet. NG was removed at 0900 and patient tolerated well. Patient ambulating hallways independently and tolerating well. Patient is SL, HR improved with oral metoprolol. Afebrile this shift, VSS. denies N/V/and states she is abdominal pain is tolerable. Patient had a shower today.
[2023-12-18 23:00] VITALS: BP 146/79; PULSE 64; RESP 15; TEMP 36.6; O2SAT 95
[2023-12-19 03:00] VITALS: BP 148/67; PULSE 66; RESP 18; TEMP 36.2; O2SAT 94
[2023-12-19] MEDS: LEVOTHYROXINE 75 MCG TABLET PO (05:40)
--- NOTE | 2023-12-19 06:41 | PC.NURSE ---
End of shift report [id number]: Alert and oriented x 4. Denies any pain. Bowel sounds active x 4 quadrants, patient is passing flatus and had small formed BM this shift. Ambulating in hallway multiple times during the evening. denies any nausea, tolerating clear liquids.
[2023-12-19 06:56] LABS: Basophils Absolute Auto 0.01 K/uL (0.00-0.30); Basophils Percent Auto 0.2 % (0.0-3.0); Eosinophils Absolute Auto 0.34 K/uL (0.00-0.50); Eosinophils Percent Auto 6.1 % (0.0-7.0); Hematocrit 32.3 % (33.0-51.0); Hemoglobin* 10.5 gm/dL (12.0-16.0); Immature Granulocytes Abs Auto 0.01 K/uL (0.00-0.30); Immature Granulocytes Pct Auto 0.2 %; Lymphocytes Percent Auto 12.7 % (20-44); Mean Corpuscular HGB Conc 33 gm/dL (32-36); Mean Corpuscular Hemoglobin 31 pg (26-34); Mean Corpuscular Volume 96 fL (80-100); Monocytes Percent Auto 11.1 % (0.0-11.0); Neutrophils Absolute Auto 3.88 K/uL (1.7-7.0); Neutrophils Percent Auto 69.7 % (42.0-72.0); Platelet Count* 222 K/uL (140-440); RDW Coefficient of Variation % 14.2 % (11.5-15.5); Red Blood Count 3.36 m/uL (4.00-5.20); White Blood Count* 5.57 K/uL (4.50-11.00)
[2023-12-19 07:02] LABS: Slide Review Reflex No
[2023-12-19 07:13] LABS: Chloride* 102 mmol/L (96-114); Potassium* 3.8 mmol/L (3.6-5.1); Sodium* 133 mmol/L (135-149)
[2023-12-19 07:16] LABS: Creatinine* 0.5 mg/dL (0.5-1.5); Est. Creatinine Clearance* 33.41; Estimated Glomerular Filt Rate 91 ml/min
[2023-12-19 07:17] LABS: Anion Gap 8 mEq/L (7-15); Blood Urea Nitrogen* 11 mg/dL (7-30); Calcium* 8.8 mg/dL (8.4-10.6); Carbon Dioxide* 23 mmol/L (20-32); Glucose* 101 mg/dL (60-115)
[2023-12-19 07:20] LABS: C Reactive Protein* 2.8 mg/dL (0.5-1.0)
[2023-12-19] MEDS: METOPROLOL TARTRATE 50 MG TABLET PO ×2 (08:43→21:19)
[2023-12-19 08:45] VITALS: BP 164/79; PULSE 88; RESP 20; TEMP 36.8; O2SAT 97
--- NOTE | 2023-12-19 12:39 | PM.GSPN ---
Subjective Subjective Date Seen: 12/19/23 Interval history: Bradny did well yesterday and did have a bowel movement today, however today she ate toast and developed more discomfort. She is concerned because her abdomen remains somewhat distended. Exam Narrative: Exam Narrative: General: No acute distress CV: Regular rate Respiratory: Breathing nonlabored on room air Abdomen: Appears to have persistent distension. 0 nontender on exam. Const: Vital Signs, click to edit/add: Vital Signs - 24 hr 12/18/23 15:00 12/18/23 15:00 12/18/23 19:00 Temperature 98.9 F 97.5 F L Pulse Rate [Left P ulse Oximeter] 79 79 79 Respiratory Rate 18 18 16 Blood Pressure [Ri ght Arm] 150/74 H 168/75 H Pulse Oximetry 97 93 Oxygen Delivery Me thod Room Air Room Air 12/18/23 23:00 12/18/23 23:00 12/19/23 03:00 Temperature 97.8 F 97.2 F L Pulse Rate [Left P ulse Oximeter] 64 64 66 Respiratory Rate 15 15 18 Blood Pressure [Ri ght Arm] 146/79 H 148/67 H Pulse Oximetry 95 94 Oxygen Delivery Me thod Room Air Room Air 12/19/23 08:45 Temperature 98.2 F Pulse Rate [Left P ulse Oximeter] 88 Respiratory Rate 20 Blood Pressure [Ri ght Arm] 164/79 H Pulse Oximetry 97 Oxygen Delivery Me thod Room Air Labs/Imaging Labs Labs: Her white blood cell count remains normal. Progress Note:A&P Assessment and plan (1) Small bowel obstruction: Status: Acute Plan Areli is doing well overall, however she still seems somewhat distended. She had more discomfort after having toast today. I suggested that she continue with a bland diet in the hospital today. If she remains distended tomorrow and/or stops passing gas then we will repeat imaging. She may have an intermittent obstruction near the anastomosis and may end up needing surgery for this. However, will wait to see how the remainder of the day goes with eating a regular diet
[2023-12-19 13:04] VITALS: BP 143/77; PULSE 78; RESP 20; TEMP 36.9; O2SAT 95
--- NOTE | 2023-12-19 14:48 | PM.IMPN1 ---
Progress Note: A&P Assessment and plan (1) Small bowel obstruction: Problem details: Patient is currently doing well. Continue monitoring for 1 more day to assure she can tolerate a regular diet Status: Acute (2) Tachycardia: Problem details: Had mild irregular tachycardia. Now back on normal oral metoprolol her rate is much better controlled. Has left bundle branch block. No AFib. Status: Acute (3) Hyponatremia: Problem details: Continue to trend and follow. 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 In 2020 she develped a small bowel obstruction (surgical history of tubal ligation) that did not resolve with conservative management and she underwent laparotomy and small bowel resection. She later developed an additional SBO in [facility] [place] and was treated there with surgery after a failed gastrograffin challenge - lysis of adhesions was performed. In February 2022, she again developed a small bowel obstruction and was managed conservatively - there was a mesenteric swirl noted. She presents with pain, nausea and vomiting which began today. CT shows mesenteric swirling again with more remarkable distension than CT from 2021. Discussed this with the radiologist. No signs of bowel ischemia though transition points are noted with mesenteric edema. The patient is noted to have a WBC of 13. She is hyponatremic but lactate normal. NG was placed and patient had marked improvement in symptoms. CT findings are concerning; however, she has now had two surgeries within 3 years for bowel obstruction and has been managed conservatively previously with mesenteric swirling noted on CT. Overnight she continued to clinically improved. Yesterday NG was removed and she was tolerating clear liquids well. Today she had full liquids. She is doing well after that and then the plan was to discharge to home. She had more to eat and then had some sense of bloating so discharge is been postponed for another day. She has not had any vomiting. She still passing gas. Exam Narrative: Exam Narrative: She is alert and appears in no distress. Abdomen with bowel sounds active. Abdomen is soft without tenderness. She is observed to be walking vigorously in the hallways. Const: Vital Signs, click to edit/add: Vital Signs - 24 hr 12/18/23 15:00 12/18/23 15:00 12/18/23 19:00 Temperature 98.9 F 97.5 F L Pulse Rate [Left P ulse Oximeter] 79 79 79 Respiratory Rate 18 18 16 Blood Pressure [Ri ght Arm] 150/74 H 168/75 H Pulse Oximetry 97 93 Oxygen Delivery Me thod Room Air Room Air 12/18/23 23:00 12/18/23 23:00 12/19/23 03:00 Temperature 97.8 F 97.2 F L Pulse Rate [Left P ulse Oximeter] 64 64 66 Respiratory Rate 15 15 18 Blood Pressure [Ri ght Arm] 146/79 H 148/67 H Pulse Oximetry 95 94 Oxygen Delivery Me thod Room Air Room Air 12/19/23 08:45 12/19/23 13:04 Temperature 98.2 F 98.5 F Pulse Rate [Left P ulse Oximeter] 88 78 Respiratory Rate 20 20 Blood Pressure [Ri ght Arm] 164/79 H 143/77 H Pulse Oximetry 97 95 Oxygen Delivery Me thod Room Air Room Air Documenting provider has reviewed patient's vital signs: yes Labs Labs: Laboratory Results - last 24 hr 12/19/23 06:34 WBC 5.57 RBC 3.36 L Hgb 10.5 L Hct 32.3 L MCV 96 MCH 31 MCHC 33 RDW Coeff of Albertina 14.2 Plt Count 222 Neut % (Auto) 69.7 Lymph % (Auto) 12.7 L [place] % (Auto) 11.1 H Eos % (Auto) 6.1 Baso % (Auto) 0.2 Neut # (Auto) 3.88 Lymph # (Auto) 0.70 L [place] # (Auto) 0.60 Eos # (Auto) 0.34 Baso # (Auto) 0.01 Abs Immat Gran (auto) 0.01 Imm/Tot Granulo (auto) 0.2 Sodium 133 L Potassium 3.8 Chloride 102 Carbon Dioxide 23 Anion Gap 8 BUN 11 Creatinine 0.5 Estimated Creat Clear 33.41 Estimated GFR 91 Glucose 101 Calcium 8.8 C-Reactive Protein 2.8 H
[2023-12-19 16:44] VITALS: BP 168/79; PULSE 76; RESP 20; TEMP 37.2; O2SAT 95
--- NOTE | 2023-12-19 19:44 | PC.NURSE ---
End of shift [id number] ? Pt alert, oriented x4, cooperative. Up independent in room and observed to walk in hallways multiple times by RN. Pt tolerating regular diet with mild feeling of abdominal distention reported to RN and MD by pt. Pt denies pain, nausea, SOB, dizziness. Pt appears to be resting comfortably at end of shift.??
[2023-12-19 20:03] VITALS: BP 130/72; PULSE 89; RESP 18; TEMP 37; O2SAT 94
[2023-12-19] MEDS: SODIUM CHLORIDE 0.9 % (FLUSH) 10 ML SYRINGE 5 ML IVF (21:19)
[2023-12-19 23:00] VITALS: RESP 16
[2023-12-20 03:00] VITALS: BP 136/78; PULSE 81; RESP 18; TEMP 36.8; O2SAT 93
--- NOTE | 2023-12-20 05:40 | PC.NURSE ---
[id number]: Patient friendly and cooperative. Ambulates independently in halls. Denies N/V. Tolerates a regular diet. BS active, passing gas, and BM. Rates pain 1-2.
[2023-12-20] MEDS: LEVOTHYROXINE 75 MCG TABLET PO (05:43)
[2023-12-20 06:49] LABS: Basophils Absolute Auto 0.02 K/uL (0.00-0.30); Basophils Percent Auto 0.3 % (0.0-3.0); Eosinophils Percent Auto 4.4 % (0.0-7.0); Hematocrit 31.7 % (33.0-51.0); Hemoglobin* 10.5 gm/dL (12.0-16.0); Immature Granulocytes Abs Auto 0.02 K/uL (0.00-0.30); Immature Granulocytes Pct Auto 0.3 %; Mean Corpuscular HGB Conc 33 gm/dL (32-36); Mean Corpuscular Hemoglobin 32 pg (26-34); Mean Corpuscular Volume 95 fL (80-100); Monocytes Percent Auto 12.7 % (0.0-11.0); Neutrophils Percent Auto 73.3 % (42.0-72.0); Platelet Count* 213 K/uL (140-440); RDW Coefficient of Variation % 14.1 % (11.5-15.5); Red Blood Count 3.33 m/uL (4.00-5.20); White Blood Count* 6.78 K/uL (4.50-11.00)
[2023-12-20 07:00] VITALS: BP 144/75; PULSE 91; RESP 16; TEMP 36.8; O2SAT 95
[2023-12-20 07:11] LABS: Slide Review Reflex No
[2023-12-20 07:30] LABS: Chloride* 103 mmol/L (96-114)
[2023-12-20 07:31] LABS: Potassium* 3.8 mmol/L (3.6-5.1); Sodium* 133 mmol/L (135-149)
[2023-12-20 07:33] LABS: Creatinine* 0.5 mg/dL (0.5-1.5); Est. Creatinine Clearance* 33.41; Estimated Glomerular Filt Rate 91 ml/min
[2023-12-20 07:34] LABS: Anion Gap 6 mEq/L (7-15); Blood Urea Nitrogen* 10 mg/dL (7-30); Calcium* 8.9 mg/dL (8.4-10.6); Carbon Dioxide* 24 mmol/L (20-32); Glucose* 103 mg/dL (60-115)
[2023-12-20 08:18] LABS: C Reactive Protein* 2.9 mg/dL (0.5-1.0)
--- NOTE | 2023-12-20 08:48 | PM.GSPN ---
Subjective Subjective Date Seen: 12/20/23 Interval history: Patient did well overnight. No further discomfort. Distension has improved. She has continued to move her bowels. They are less loose now. Exam Narrative: Exam Narrative: General: No acute distress Abdomen: Less distended. Soft. Nontender. Const: Vital Signs, click to edit/add: Vital Signs - 24 hr 12/19/23 13:04 12/19/23 16:44 12/19/23 20:03 Temperature 98.5 F 99.0 F 98.6 F Pulse Rate [Left P ulse Oximeter] 78 76 89 Respiratory Rate 20 20 18 Blood Pressure [Ri ght Arm] 143/77 H 168/79 H 130/72 Pulse Oximetry 95 95 94 Oxygen Delivery Me thod Room Air Room Air Room Air 12/19/23 23:00 12/20/23 03:00 Temperature 98.3 F Pulse Rate [Left P ulse Oximeter] 81 Respiratory Rate 16 18 Blood Pressure [Ri ght Arm] 136/78 Pulse Oximetry 93 Oxygen Delivery Me thod Room Air Labs/Imaging Labs Labs: White blood cell count remains normal. Progress Note:A&P Assessment and plan (1) Small bowel obstruction: Status: Acute Plan The patient is an 88-year-old female with resolution of small-bowel obstruction. She is okay with discharging home today.
[2023-12-20] MEDS: METOPROLOL TARTRATE 50 MG TABLET PO (09:34)
[2023-12-20] MEDS: SODIUM CHLORIDE 0.9 % (FLUSH) 10 ML SYRINGE 5 ML IVF (09:34)
--- NOTE | 2023-12-20 12:04 | PC.NURSE ---
Pt discharged @ 1130- education provided. IV removed- catheter intact. VSS. RA. Denies pain. BM this AM. Up walking around independently. Discharged home w/ spouse. Nia Larkin RN
--- NOTE | 2023-12-20 15:53 | P.DS_ITS ---
DS: Providers Provider Date Seen: 12/20/23 Date of admission: 12/18/23 08:10 Primary care physician: Akila Cerda MD Admitting Clinician: Liban Weiner MD Attending Physician on discharge: Liban Weiner MD Date of Discharge: 12/20/23 DS: Diagnosis Discharge Diagnosis (1) Small bowel obstruction: Status: Acute Problem details: Patient is currently doing well. Continue monitoring for 1 more day to assure she can tolerate a regular diet (2) Tachycardia: Status: Acute Problem details: Had mild irregular tachycardia. Now back on normal oral metoprolol her rate is much better controlled. Has left bundle branch block. No AFib. (3) Hyponatremia: Status: Acute Problem details: Improved. 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 In 2020 she develped a small bowel obstruction (surgical history of tubal ligation) that did not resolve with conservative management and she underwent laparotomy and small bowel resection. She later developed an additional SBO in [facility] and was treated there with surgery after a failed gastrograffin challenge - lysis of adhesions was performed. In February 2022, she again developed a small bowel obstruction and was managed conservatively - there was a mesenteric swirl noted. She presents with pain, nausea and vomiting which began today. CT shows mesenteric swirling again with more remarkable distension than CT from 2021. Discussed this with the radiologist. No signs of bowel ischemia though transition points are noted with mesenteric edema. The patient is noted to have a WBC of 13. She is hyponatremic but lactate normal. NG was placed and patient had marked improvement in symptoms. CT findings are concerning; however, she has now had two surgeries within 3 years for bowel obstruction and has been managed conservatively previously with mesenteric swirling noted on CT. Overnight she continued to clinically improved. 2 days ago NG was removed and she was tolerating clear liquids well. Today she had full liquids. She is doing well after that and then the plan was to discharge to home. She had more to eat and then had some sense of bloating so discharge is been postponed for another day. She has not had any vomiting. She still passing gas. Overnight she has done well. Passing gas. Had a bowel movement. Eating a regular diet. Status at Discharge Functional status at discharge: independent ambulation Overall status at discharge: patient is progressing back to baseline Time Spent with Patient Time attestation: Total time spent providing and/or coordinating discharge services: Time spent: Less than 30 minutes Exam Narrative: Exam Narrative: She is alert in no distress. Walking the hallways comfortably. Eating a regular diet. Abdomen is soft without tenderness. Const: Vital Signs, click to edit/add: Vital Signs - 24 hr 12/19/23 16:44 12/19/23 20:03 12/19/23 23:00 Temperature 99.0 F 98.6 F Pulse Rate [Left P ulse Oximeter] 76 89 Respiratory Rate 20 18 16 Blood Pressure [Ri ght Arm] 168/79 H 130/72 Pulse Oximetry 95 94 Oxygen Delivery Me thod Room Air Room Air 12/20/23 03:00 12/20/23 07:00 Temperature 98.3 F 98.2 F Pulse Rate [Left P ulse Oximeter] 81 91 Respiratory Rate 18 16 Blood Pressure [Ri ght Arm] 136/78 144/75 H Pulse Oximetry 93 95 Oxygen Delivery Me thod Room Air Room Air Documenting provider has reviewed patient's vital signs: yes DS: Data Data Completed and Pending Labs on day of discharge: Labs from last 24 hours 12/20/23 05:42 WBC 6.78 RBC 3.33 L Hgb 10.5 L Hct 31.7 L MCV 95 MCH 32 MCHC 33 RDW Coeff of Albertina 14.1 Plt Count 213 Neut % (Auto) 73.3 H Lymph % (Auto) 9.0 L Jerome % (Auto) 12.7 H Eos % (Auto) 4.4 Baso % (Auto) 0.3 Neut # (Auto) 5.00 Lymph # (Auto) 0.60 L Jerome # (Auto) 0.90 Eos # (Auto) 0.30 Baso # (Auto) 0.02 Abs Immat Gran (auto) 0.02 Imm/Tot Granulo (auto) 0.3 Sodium 133 L Potassium 3.8 Chloride 103 Carbon Dioxide 24 Anion Gap 6 L BUN 10 Creatinine 0.5 Estimated Creat Clear 33.41 Estimated GFR 91 Glucose 103 Calcium 8.9 C-Reactive Protein 2.9 H Discharge Plan Discharge Disposition: Home, Self-Care Date of Admission: 12/18/23 08:10 Attending Provider on Discharge: Liban Weiner Consulting Providers: Nevaeh Flores Primary Care Provider: Akila Cerda Condition: Improved Anticipated Discharge Date/Time: 12/20/23 09:39 Discharge Medications: Continued omega 9-iuh-slt-fish oil [Fish Oil] 60-90-500 mg capsule 1 cap PO BID naproxen 250 mg tablet 250 mg PO BID PRN calcium carbonate [Calcium 500] 500 mg calcium (1,250 mg) tablet,chewable 500 mg PO QDAY levothyroxine 75 mcg tablet 75 mcg PO DAILY metoprolol tartrate 50 mg tablet 50 mg PO BID Patient Comments: TAKE 1 TABLET BY MOUTH 2 TIMES DAILY lisinopril 5 mg tablet 5 mg PO HS cetirizine 10 mg tablet 10 mg PO DAILY PRN multivitamin Tablet 1 tab PO DAILY melatonin 5 mg capsule 5 mg PO HS acetaminophen 500 mg capsule 500 - 1,000 mg PO Q8H MDD 3000mg PRNQty: 100 0RF amoxicillin 500 mg capsule 2,000 mg PO ONCE Qty: 4 3RF Rx Instructions: Take all 4 capsules, 1 hour prior to dental appointment Discharge Orders: Discharge Order (Routine); Ordered 12/20/23 Ordered By: Liban Weiner Patient Education: Bowel Obstruction (DC) Activity Level: No Restrictions Discharge Diet: Regular and Other Follow Up Appointments: Akila Cerda MD [Primary Care Provider] - (Follow-up as needed) Forms: [employer] Info Instructions
== END 2023-12-20 11:30 | disposition home or self-care (01) | DRG 389 ==
LOC: ED 12-17 00:29 → MEDSURG 12-17 00:57
PROVIDERS: Internal Medicine; Surgery; Admitting Provider Family Medicine; Emergency Provider Family Medicine; PCP Family Medicine; Visit Provider Family Medicine
DX: K56.601 Complete intestinal obstruction, unspecified as to cause (principal); E87.1 Hypo-osmolality and hyponatremia; N39.0 Urinary tract infection, site not specified; I44.7 Left bundle-branch block, unspecified; R00.0 Tachycardia, unspecified; I48.91 Unspecified atrial fibrillation; K21.9 Gastro-esophageal reflux disease without esophagitis; E03.9 Hypothyroidism, unspecified; D72.829 Elevated white blood cell count, unspecified; B96.1 Klebsiella pneumoniae [K. pneumoniae] as the cause of diseases classified elsewhere
CPT/HCPCS: 36415; 71045; 74018; 74177; 80048; 80076; 81001; 82150; 83605; 83690; 84295; 84443; 84484; 85025; 86140; 87086; 87186; 87631; 93005; 99285; A9270; G0378; J0690; J2270; J2405; J7030; J7120; Q9963; Q9967

== ENCOUNTER 2024-10-27 20:40 | Inpatient (IN) | payer MEDICARE, BC, SELFPAY ==
[2024-10-27] VITALS (10 sets, daily range): BP systolic 112–137; BP diastolic 65–82; PULSE 79–122; RESP 20; TEMP 36.9; O2SAT 88–97; BMI 23.0
--- NOTE | 2024-10-27 21:01 | ED.GENADULT ---
HPI - General Adult General Chief complaint: Nausea/Vomiting Stated complaint: abdominal pain and vomiting Time Seen by Provider: 10/27/24 21:02 History of Present Illness HPI narrative: Pt reports abd pain that she woke with this AM. Pain is lower abd across abdomen. Pt states that she feels distended. Vomiting started this evening. Pt is vomiting in triage. States unable to keep food or liquids down. Reports hx of bowel obstructions. States I feel so crappy I would welcome an NG tube. 89-year-old woman presenting to the emergency department with concern of increasing abdominal pain and distension. Notes a history of recurrent small-bowel obstructions. Pain and nausea increasing across her abdomen today. Has vomited a few times. Vomited most actually when she presented to the emergency department. No hematemesis. Last passed gas couple of hours ago. Has had a couple small stool outputs earlier in the day as well. Last admitted to this facility in November of this year with a small-bowel obstruction. This resolved with 2 days of bowel rest. Has had surgeries for bowel obstructions but prior to that had only had a tubal ligation the s. These were laparotomies; 1 of which did include a some partial small-bowel resection. No fever. Related Data Home Medications ?Medication ?Instructions ?Recorded ?Confirmed cetirizine 10 mg tablet 10 mg PO DAILY PRN 08/05/22 10/27/24 levothyroxine 75 mcg tablet 75 mcg PO DAILY 08/05/22 10/27/24 lisinopril 5 mg tablet 5 mg PO HS 08/05/22 10/27/24 melatonin 5 mg capsule 5 mg PO HS 08/05/22 03/06/24 metoprolol tartrate 50 mg tablet 50 mg PO BID 08/05/22 10/27/24 multivitamin 1 tab PO DAILY 08/05/22 10/27/24 naproxen 250 mg tablet 250 mg PO BID PRN 04/12/23 03/06/24 omega 3-ybr-xyw-fish oil 60 mg-90 1 cap PO BID 04/12/23 10/27/24 mg-500 mg capsule (Fish Oil) calcium carbonate (Calcium 500) 500 mg PO QDAY 09/23/23 10/27/24 Previous Rx's ?Medication ?Instructions ?Recorded acetaminophen 500 mg capsule 500 - 1,000 mg (1 - 2 x 500 mg) PO 08/11/23 Q8H PRN #100 caps amoxicillin 500 mg capsule 2,000 mg (4 x 500 mg) PO ONCE #4 11/22/23 caps Allergies Allergy/AdvReac Type Severity Reaction Status Date / Time cat dander Allergy Verified 03/06/24 13:08 perfume Allergy Verified 03/06/24 13:08 Review of Systems Status of ROS: Reports: 6 or more systems reviewed and unremarkable except as noted in History and below [facility] Medical History Hypertension ?I10 - Essential (primary) hypertension (ICD-10) Left bundle branch block ?I44.7 - Left bundle-branch block, unspecified (ICD-10) Small bowel obstruction ?K56.609 - Unspecified intestinal obstruction, unspecified as to partial versus complete obstruction (ICD-10) Postoperative ileus ?K91.89 - Other postprocedural complications and disorders of digestive system (ICD-10) ?K56.7 - Ileus, unspecified (ICD-10) Postoperative hypoxia ?R09.02 - Hypoxemia (ICD-10) ?Z98.890 - Other specified postprocedural states (ICD-10) Anemia following surgery ?D64.9 - Anemia, unspecified (ICD-10) Strain of right hip ?S76.011A - Strain of muscle, fascia and tendon of right hip, initial encounter (ICD-10) Sigmoid diverticulosis ?K57.30 - Diverticulosis of large intestine without perforation or abscess without bleeding (ICD-10) Arthritis ?M19.90 - Unspecified osteoarthritis, unspecified site (ICD-10) GERD (gastroesophageal reflux disease) ?K21.9 - Gastro-esophageal reflux disease without esophagitis (ICD-10) Atrial fibrillation ?I48.91 - Unspecified atrial fibrillation (ICD-10) Hypothyroid ?E03.9 - Hypothyroidism, unspecified (ICD-10) Surgical History S/P laparotomy with lysis of adhesions ?Z98.890 - Other specified postprocedural states (ICD-10) 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) ?Z98.890 - Other specified postprocedural states (ICD-10) History of ankle surgery (12/04/92) ?Z98.890 - Other specified postprocedural states (ICD-10) 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 She lives in [place] with her . She does not smoke. She drinks 1 glass of wine a day. What is your current living situation?: I presently have a place to live Problems where you live: no known problems Problems where you live details: NA In the past 12 months, utilities in danger of being shut off: no In the past 12 mos, have been you worried that your food would run out before you had money to buy more?: never true In the past 12 mos, the food you bought just didn't last and you didn't have money to buy more?: never true Highest level of school completed/degree received: Associate degree: occupational, technical, vocational program Smoking Status: Former smoker What tobacco products do you use: cigarettes Smoking quit date/years: >15 years ago Do you use any of these nicotine containing products: None Second hand tobacco smoke exposure: No How often do you have a drink containing alcohol: 4 or more times a week Alcohol type: wine Alcohol type details: daily glass of wine How many standard drinks containing alcohol do you have on a typical day: 1 or 2 How often do you have six or more drinks on one occasion: Never AUDIT-C Alcohol total score: 4 Non-prescribed substance use: denies use Caffeine: Yes How often does anyone, including family, friends and others, physically hurt you: never How often does anyone, including family, friends and others, insult or talk down to you: never How often does anyone, including family, friends and others, threaten you with harm: never How often does anyone, including family, friends and others, scream or curse at you: never service: No Exam Narrative: Exam Narrative: Pleasant. With good energy. Breathing easily. Lungs are clear. Heart in tachycardic rate and regular rhythm. Cranial nerves 2-12 intact. She well-perfused peripherally without edema. Abdomen with present bowel sounds is rather protrude print and mildly tender. Tympanitic. Const: Vital Signs, click to edit/add: Vital Signs - 24 hr 10/27/24 20:45 10/27/24 21:37 10/27/24 21:38 Temperature 98.4 F Pulse Rate 92 86 Pulse Rate [Pulse Oximeter] 122 H Respiratory Rate 20 Blood Pressure 122/65 Blood Pressure [Ri ght Upper Arm] 124/66 Pulse Oximetry 94 94 94 Oxygen Delivery Me thod Room Air 10/27/24 21:45 10/27/24 22:00 10/27/24 22:02 Temperature Pulse Rate 84 86 79 Pulse Rate [Pulse Oximeter] Respiratory Rate Blood Pressure 112/71 Blood Pressure [Ri ght Upper Arm] Pulse Oximetry 95 96 97 Oxygen Delivery Me thod 10/27/24 22:15 10/27/24 22:37 10/27/24 22:45 Temperature Pulse Rate 87 88 95 Pulse Rate [Pulse Oximeter] Respiratory Rate Blood Pressure Blood Pressure [Ri ght Upper Arm] Pulse Oximetry 97 96 88 Oxygen Delivery Me thod 10/27/24 22:50 Temperature Pulse Rate Pulse Rate [Pulse Oximeter] Respiratory Rate Blood Pressure 137/82 Blood Pressure [Ri ght Upper Arm] Pulse Oximetry Oxygen Delivery Me thod Documenting provider has reviewed patient's vital signs: yes Course Vital Signs Vital signs: Initial Vital Signs Temperature 98.4 F 10/27/24 20:45 Temperature Source Temporal Artery Scan 10/27/24 20:45 Pulse Rate 122 H 10/27/24 20:45 Respiratory Rate 20 10/27/24 20:45 Blood Pressure 124/66 10/27/24 20:45 Blood Pressure Mean 85 10/27/24 20:45 Blood Pressure Position Sitting 10/27/24 20:45 Pulse Oximetry 94 10/27/24 20:45 Oxygen Delivery Method Room Air 10/27/24 20:45 Vital Signs Temperature 98.4 F 10/27/24 20:45 Pulse Rate 122 H 10/27/24 20:45 Respiratory Rate 20 10/27/24 20:45 Blood Pressure 124/66 10/27/24 20:45 Pulse Oximetry 94 10/27/24 20:45 Oxygen Delivery Method Room Air 10/27/24 20:45 Temperature 98.4 F 10/27/24 20:45 Pulse Rate 95 10/27/24 22:45 Respiratory Rate 20 10/27/24 20:45 Blood Pressure 137/82 10/27/24 22:50 Pulse Oximetry 88 10/27/24 22:45 Oxygen Delivery Method Room Air 10/27/24 20:45 Medications Administered Medications: Discontinued Medications Generic Name Dose Route Start Last Admin Trade Name Freq PRN Reason Stop Dose Admin Morphine Sulfate 4 mg 10/27/24 21:12 10/27/24 21:27 Morphine 4 Mg/Ml Inj IVP 10/27/24 21:13 4 mg ONCE ONE Administration Ondansetron HCl 4 mg 10/27/24 21:12 10/27/24 21:28 Ondansetron 2 Mg/Ml Inj IVP 10/27/24 21:13 4 mg ONCE ONE Administration Medical Decision Making MDM Narrative Medical decision making narrative: I would presume is experiencing another small-bowel obstruction and given history I think would be best served with bowel rest. Will need to verify with imaging as more complicated past medical/surgical in this regard. IV fluids and some morphine and Zofran. On reassessment is improved, resting. No further vomiting. Has had some ice chips. White count mildly elevated. I did review CT imaging of her abdomen pelvis showing diffusely dilated loops of small bowel. Radiology over-read below Technique: Noncontrast CT through the abdomen and pelvis with multiplanar reformats. Comparison: CT abdomen pelvis performed 12/16/2023 Findings: Lower chest: No acute abnormality appreciated. Hepatobiliary: No significant parenchymal abnormality is appreciated. Spleen: Unremarkable. Pancreas: No acute abnormality appreciated. Adrenal glands: No acute abnormality appreciated. Kidneys: No significant parenchymal abnormality appreciated. No visualized calculi. No hydronephrosis. Bowel: Dilated small bowel measures up to 4.2 centimeters. Transition point is favored to be in the left lower quadrant adjacent to an area of bowel anastomosis. Vascular: Calcified atherosclerosis. Lymph nodes: No gross lymphadenopathy. Peritoneum: Small volume fluid and edema. No free air. : No acute abnormality appreciated. Soft tissues: No acute abnormality appreciated. Bones: No acute fracture. No lytic or blastic lesion. Chronic thoracolumbar compression fractures. Degenerative changes of the spine and pelvis. Impression: Small-bowel obstruction. Transition point is favored to be in the left lower quadrant adjacent to an area of bowel anastomosis. Will be contacting General surgery and have already discussed with hospitalist for admission. May need NG placement although nausea is resolved per her report. Medical Records Medical records reviewed: Yes I reviewed the patient's medical records Lab Data Lab results reviewed: Yes I reviewed the patient's lab results Labs: Lab Results 10/27/24 Range/Units 21:30 WBC 11.46 H (4.50-11.00) K/uL RBC 4.45 (4.00-5.20) m/uL Hgb 13.2 (12.0-16.0) gm/dL Hct 39.4 (33.0-51.0) % MCV 89 (80-100) fL MCH 30 (26-34) pg MCHC 34 (32-36) gm/dL RDW Coeff of Albertina 13.7 (11.5-15.5) % Plt Count 317 (140-440) K/uL Neut % (Auto) 87.0 H (42.0-72.0) % Lymph % (Auto) 4.5 L (20-44) % Glasscock % (Auto) 7.8 (0.0-11.0) % Eos % (Auto) 0.5 (0.0-7.0) % Baso % (Auto) 0.1 (0.0-3.0) % Neut # (Auto) 10.00 H (1.7-7.0) K/uL Lymph # (Auto) 0.50 L (0.90-2.90) K/uL Glasscock # (Auto) 0.90 (0.00-0.90) K/UL Eos # (Auto) 0.10 (0.00-0.50) K/uL Baso # (Auto) 0.00 (0.00-0.30) K/uL Abs Immat Gran (auto) 0.00 (0.00-0.30) K/uL Imm/Tot Granulo (auto) 0.1 % Sodium 130 L (135-149) mmol/L Potassium 3.9 (3.6-5.1) mmol/L Chloride 92 L (96-114) mmol/L Carbon Dioxide 26 (20-32) mmol/L Anion Gap 12 (7-15) mEq/L BUN 27 (7-30) mg/dL Creatinine 0.8 (0.5-1.5) mg/dL Estimated Creat Clear 32.79 Estimated GFR 71 ml/min Glucose 166 H (60-115) mg/dL Calcium 11.1 H (8.4-10.6) mg/dL C-Reactive Protein 1.1 H (0.5-1.0) mg/dL Discharge Plan Discharge Clinical Impression: Small bowel obstruction Patient Disposition: Admitted As Observation Condition: Improved
--- NOTE | 2024-10-27 21:12 | CRLHL7_ITS ---
For Patients: As a result of the Century Cures Act, medical imaging exams and procedure reports are released immediately into your electronic medical record. You may view this report before your referring provider. If you have questions, please contact your health care provider. Indication: Vomiting, distention, history of small-bowel obstruction Technique: Noncontrast CT through the abdomen and pelvis with multiplanar reformats. Comparison: CT abdomen pelvis performed 12/16/2023 Findings: Lower chest: No acute abnormality appreciated. Hepatobiliary: No significant parenchymal abnormality is appreciated. Spleen: Unremarkable. Pancreas: No acute abnormality appreciated. Adrenal glands: No acute abnormality appreciated. Kidneys: No significant parenchymal abnormality appreciated. No visualized calculi. No hydronephrosis. Bowel: Dilated small bowel measures up to 4.2 centimeters. Transition point is favored to be in the left lower quadrant adjacent to an area of bowel anastomosis. Vascular: Calcified atherosclerosis. Lymph nodes: No gross lymphadenopathy. Peritoneum: Small volume fluid and edema. No free air. : No acute abnormality appreciated. Soft tissues: No acute abnormality appreciated. Bones: No acute fracture. No lytic or blastic lesion. Chronic thoracolumbar compression fractures. Degenerative changes of the spine and pelvis. Impression: Small-bowel obstruction. Transition point is favored to be in the left lower quadrant adjacent to an area of bowel anastomosis. Please note that all CT scans at this facility use dose modulation, iterative reconstruction, and/or weight-based dosing when appropriate to reduce radiation dose to as low as reasonably achievable. Dictated by Enrique Carvalho MD @ 10/27/2024 10:57:21 PM (Electronically Signed)
[2024-10-27] MEDS: MORPHINE 4 MG/ML INJ IVP (21:27)
[2024-10-27] MEDS: ONDANSETRON 2 MG/ML inj 4 MG IVP (21:28)
[2024-10-27 21:36] LABS: Basophils Percent Auto 0.1 % (0.0-3.0); Eosinophils Percent Auto 0.5 % (0.0-7.0); Hematocrit 39.4 % (33.0-51.0); Hemoglobin* 13.2 gm/dL (12.0-16.0); Immature Granulocytes Pct Auto 0.1 %; Lymphocytes Percent Auto 4.5 % (20-44); Mean Corpuscular HGB Conc 34 gm/dL (32-36); Mean Corpuscular Hemoglobin 30 pg (26-34); Mean Corpuscular Volume 89 fL (80-100); Monocytes Percent Auto 7.8 % (0.0-11.0); Platelet Count* 317 K/uL (140-440); RDW Coefficient of Variation % 13.7 % (11.5-15.5); Red Blood Count 4.45 m/uL (4.00-5.20); White Blood Count* 11.46 K/uL (4.50-11.00)
[2024-10-27 21:37] LABS: Slide Review Reflex No
[2024-10-27 21:49] LABS: Chloride* 92 mmol/L (96-114); Potassium* 3.9 mmol/L (3.6-5.1); Sodium* 130 mmol/L (135-149)
[2024-10-27 21:52] LABS: Anion Gap 12 mEq/L (7-15); Blood Urea Nitrogen* 27 mg/dL (7-30); Carbon Dioxide* 26 mmol/L (20-32); Creatinine* 0.8 mg/dL (0.5-1.5); Est. Creatinine Clearance* 32.79; Estimated Glomerular Filt Rate 71 ml/min
[2024-10-27 21:53] LABS: Calcium* 11.1 mg/dL (8.4-10.6); Glucose* 166 mg/dL (60-115)
[2024-10-27 21:55] LABS: C Reactive Protein* 1.1 mg/dL (0.5-1.0)
--- NOTE | 2024-10-27 23:55 | P.IMHP_ITS ---
Hospitalist- H&P: HPI History of Present Illness Date Seen: 10/27/24 Chief complaint: abdominal pain and vomiting Narrative: Areli Lee is a 89 year old woman with history of recurrent small-bowel obstruction and presents today with less than 24 hour history a of increasing abdominal pain, bloating, nausea, retching, and vomiting reminiscent to her of prior presentations with small-bowel obstruction. Woke up this morning not feeling well. Gradually the abdominal discomfort increased throughout the day and then later developed nausea with retching and later vomiting as well. Eventually opted to come in for assessment. Did have 2 small bowel movements during the course of the day. Unable to tolerate apple juice or water without nausea and retching. Did take her morning medications and her evening medications. She does not think that the evening medication stay down. Last time she was admitted to the hospital and treated for small bowel obstruction was in November of 2023. She was treated conservatively at that time with NG tube, Gastrografin, IV fluids, analgesics, antiemetics, and eventually a small-bowel obstruction resolved. First time she had a small bowel obstruction was in 2020. Only abdominal pelvic surgery she had prior to that was tubal ligation. Ultimately patient underwent a laparotomy with small-bowel resection. Subsequently had another recurrent small bowel obstruction while traveling in [facility] and had to undergo lysis of adhesions via laparotomy. February 2022 had another small bowel obstruction that was managed conservatively. Has not had any recent fevers, rigors, diaphoresis. No recent trauma or injury. No recent travel. Active without any restrictions in her daily activities. Review of Systems Status of ROS: Reports: 6 or more systems reviewed and unremarkable except as noted in History and below Narrative: Takes her medications as prescribed. If accidentally misses a dose of her metoprolol, she notes her heart rate increases. No cardiopulmonary symptoms, no gastrointestinal or genitourinary symptoms aside from what is described above, no musculoskeletal or neurologic or endocrine sy mptoms. [facility] Medical History (Updated 10/28/24 @ 00:09 by Jovany De La Vega MD) Hypertension ?I10 - Essential (primary) hypertension (ICD-10) Left bundle branch block ?I44.7 - Left bundle-branch block, unspecified (ICD-10) Small bowel obstruction ?K56.609 - Unspecified intestinal obstruction, unspecified as to partial versus complete obstruction (ICD-10) Postoperative ileus ?K91.89 - Other postprocedural complications and disorders of digestive system (ICD-10) ?K56.7 - Ileus, unspecified (ICD-10) Postoperative hypoxia ?R09.02 - Hypoxemia (ICD-10) ?Z98.890 - Other specified postprocedural states (ICD-10) Anemia following surgery ?D64.9 - Anemia, unspecified (ICD-10) Strain of right hip ?S76.011A - Strain of muscle, fascia and tendon of right hip, initial encounter (ICD-10) Sigmoid diverticulosis ?K57.30 - Diverticulosis of large intestine without perforation or abscess without bleeding (ICD-10) Arthritis ?M19.90 - Unspecified osteoarthritis, unspecified site (ICD-10) GERD (gastroesophageal reflux disease) ?K21.9 - Gastro-esophageal reflux disease without esophagitis (ICD-10) Atrial fibrillation ?I48.91 - Unspecified atrial fibrillation (ICD-10) Hypothyroid ?E03.9 - Hypothyroidism, unspecified (ICD-10) Surgical History S/P laparotomy with lysis of adhesions ?Z98.890 - Other specified postprocedural states (ICD-10) 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) ?Z98.890 - Other specified postprocedural states (ICD-10) History of ankle surgery (12/04/92) ?Z98.890 - Other specified postprocedural states (ICD-10) 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 She lives in [place] with her . She does not smoke. She drinks 1 glass of wine a day. What is your current living situation?: I presently have a place to live Problems where you live: no known problems Problems where you live details: NA In the past 12 months, utilities in danger of being shut off: no In the past 12 mos, have been you worried that your food would run out before you had money to buy more?: never true In the past 12 mos, the food you bought just didn't last and you didn't have money to buy more?: never true Highest level of school completed/degree received: Associate degree: occupational, technical, vocational program Smoking Status: Former smoker What tobacco products do you use: cigarettes Smoking quit date/years: >15 years ago Do you use any of these nicotine containing products: None Second hand tobacco smoke exposure: No How often do you have a drink containing alcohol: 4 or more times a week Alcohol type: wine Alcohol type details: daily glass of wine How many standard drinks containing alcohol do you have on a typical day: 1 or 2 How often do you have six or more drinks on one occasion: Never AUDIT-C Alcohol total score: 4 Non-prescribed substance use: denies use Caffeine: Yes How often does anyone, including family, friends and others, physically hurt you : never How often does anyone, including family, friends and others, insult or talk down to you: never How often does anyone, including family, friends and others, threaten you with harm: never How often does anyone, including family, friends and others, scream or curse at you: never service: No Meds Home Medications and Allergies Home Medications ?Medication ?Instructions ?Recorded ?Confirmed ?Type cetirizine 10 mg tablet 10 mg PO DAILY PRN 08/05/22 10/27/24 History levothyroxine 75 mcg tablet 75 mcg PO DAILY 08/05/22 10/27/24 History lisinopril 5 mg tablet 5 mg PO HS 08/05/22 10/27/24 History melatonin 5 mg capsule 5 mg PO HS 08/05/22 03/06/24 History metoprolol tartrate 50 mg tablet 50 mg PO BID 08/05/22 10/27/24 History multivitamin 1 tab PO DAILY 08/05/22 10/27/24 History naproxen 250 mg tablet 250 mg PO BID PRN 04/12/23 03/06/24 History omega 9-xex-jyd-fish oil 60 mg-90 1 cap PO BID 04/12/23 10/27/24 History mg-500 mg capsule (Fish Oil) calcium carbonate (Calcium 500) 500 mg PO QDAY 09/23/23 10/27/24 History Allergies Allergy/AdvReac Type Severity Reaction Status Date / Time cat dander Allergy Verified 03/06/24 13:08 perfume Allergy Verified 03/06/24 13:08 Exam Narrative: Exam Narrative: Examine her in the emergency department. She appears comfortable and in no acute distress laying in her exam table. Head of bed elevated about 45?. Alert and oriented x4. Friendly, articulate, cooperative. Hearing and vision are adequate. Normal tympanic membranes. Conjugate gaze. Midline nasal septum. Dentition in fair repair. Neck is supple. Midline trachea. Lungs are clear to auscultation without wheezing, rhonchi, or rales. Chest wall excursions are full. No CVA tenderness. Heart tones with regular rhythm and occasional extra beat. No murmur, gallop, or rub. Abdomen is quiet. Distended. Tympanitic. Subjective discomfort to palpation without rebound or guarding. Moves all 4 extremities. No focal motor neurologic deficits. Extremities without edema. Skin is dry and intact. Const: Vital Signs, click to edit/add: Vital Signs - 24 hr 10/27/24 20:45 10/27/24 21:37 10/27/24 21:38 Temperature 98.4 F Pulse Rate 92 86 Pulse Rate [Pulse Oximeter] 122 H Respiratory Rate 20 Blood Pressure 122/65 Blood Pressure [Ri ght Upper Arm] 124/66 Pulse Oximetry 94 94 94 Oxygen Delivery Me thod Room Air 10/27/24 21:45 10/27/24 22:00 10/27/24 22:02 Temperature Pulse Rate 84 86 79 Pulse Rate [Pulse Oximeter] Respiratory Rate Blood Pressure 112/71 Blood Pressure [Ri ght Upper Arm] Pulse Oximetry 95 96 97 Oxygen Delivery Me thod 10/27/24 22:15 10/27/24 22:37 10/27/24 22:45 Temperature Pulse Rate 87 88 95 Pulse Rate [Pulse Oximeter] Respiratory Rate Blood Pressure Blood Pressure [Ri ght Upper Arm] Pulse Oximetry 97 96 88 [facility] 10/27/24 22:50 Temperature Pulse Rate Pulse Rate [Pulse Oximeter] Respiratory Rate Blood Pressure 137/82 Blood Pressure [Ri ght Upper Arm] Pulse Oximetry Oxygen Delivery [facility] Hospitalist - H&P: Result Labs Labs: Short CBC 10/27/24 Range/Units 21:30 WBC 11.46 H (4.50-11.00) K/uL Hgb 13.2 (12.0-16.0) gm/dL Hct 39.4 (33.0-51.0) % Plt Count 317 (140-440) K/uL BMP 10/27/24 21:30 Sodium 130 L Potassium 3.9 Chloride 92 L Carbon Dioxide 26 BUN 27 Creatinine 0.8 Glucose 166 H Calcium 11.[address] scan - abdomen and pelvis: Attestation: I have reviewed the pertinent imaging results. Radiologist's impression: Comparison: CT abdomen pelvis performed 12/16/2023 Findings: Lower chest: No acute abnormality appreciated. Hepatobiliary: No significant parenchymal abnormality is appreciated. Spleen: Unremarkable. Pancreas: No acute abnormality appreciated. Adrenal glands: No acute abnormality appreciated. Kidneys: No significant parenchymal abnormality appreciated. No visualized calculi. No hydronephrosis. Bowel: Dilated small bowel measures up to 4.2 centimeters. Transition point is favored to be in the left lower quadrant adjacent to an area of bowel anastomosis. Vascular: Calcified atherosclerosis. Lymph nodes: No gross lymphadenopathy. Peritoneum: Small volume fluid and edema. No free air. : No acute abnormality appreciated. Soft tissues: No acute abnormality appreciated. Bones: No acute fracture. No lytic or blastic lesion. Chronic thoracolumbar compression fractures. Degenerative changes of the spine and pelvis. Impression: Small-bowel obstruction. Transition point is favored to be in the left lower quadrant adjacent to an area of bowel anastomosis. Assessment and Plan Assessment and plan (1) Small bowel obstruction: Problem comment: - much improved status post antiemetic. - consider NG tube if recurrent nausea, retching, vomiting, which patient is agreeable to - general surgery consultation - NPO, IV fluids, antiemetics, analgesia Status: Acute (2) Hyponatremia: Problem comment: - normal saline IV fluid at maintenance rate of 125 mL/hour while NPO Status: Acute (3) Hypertension: Problem comment: - hold oral lisinopril and metoprolol - metoprolol tartrate 5 mg IV q.6 hours while NPO - monitor on telemetry Status: Acute Plan 1. I reviewed my impression, plan, recommendations with patient. Answered her questions to her satisfaction. She is agreeable with above stated plans and recommendations. Total Time Spent Total Time Spent: 60 minute
[2024-10-28] VITALS (8 sets, daily range): BP systolic 133–149; BP diastolic 70–90; PULSE 70–120; RESP 16–20; TEMP 36.4–37.4; O2SAT 89–92; BMI 23.4
--- NOTE | 2024-10-28 00:12 | CRLHL7_ITS ---
For Patients: As a result of the Century Cures Act, medical imaging exams and procedure reports are released immediately into your electronic medical record. You may view this report before your referring provider. If you have questions, please contact your health care provider. INDICATION: Tube placement. TECHNIQUE: Abdomen 1 view. COMPARISON: CT abdomen and pelvis 10/27/2024. IMPRESSION: Enteric tube tip projects over the proximal stomach with the side hole in the distal esophagus, recommend advancement. Dictated by Zan Aviles MD @ 10/28/2024 2:39:59 AM (Electronically Signed)
[2024-10-28] MEDS: 0.9 % SODIUM CHLORIDE 1000 ml 1,000 ML 125 ML IV ×3 (00:38→16:46)
[2024-10-28] MEDS: MORPHINE 4 MG/ML INJ IVP ×2 (01:25→10:20)
[2024-10-28] MEDS: METOPROLOL TARTRATE 1 MG/ML inj 5 MG IVP ×5 (01:26→23:40)
[2024-10-28] MEDS: BENZOCAINE/MENTHOL 1 EACH LOZENGE MUCOUS MEM ×2 (02:36→10:24)
--- NOTE | 2024-10-28 02:53 | CRLHL7_ITS ---
For Patients: As a result of the Cures Act, medical imaging exams and procedure reports are released immediately into your electronic medical record. You may view this report before your referring provider. If you have questions, please contact your health care provider. INDICATION: NG tube placement. TECHNIQUE: Chest 1 view. COMPARISON: 12/16/2023. FINDINGS: Cardiovascular and mediastinum: Cardiomediastinal silhouette is within normal limits. Aortic knob calcifications. Lungs and pleural spaces: No consolidation. No pleural effusions or pneumothorax. Bones and soft tissues: NG tube tip projects over the mid stomach. Bilateral shoulder arthroplasty. IMPRESSION: Satisfactory position of NG tube in the stomach. Dictated by Zan Aviles MD @ 10/28/2024 3:42:16 AM (Electronically Signed)
[2024-10-28 06:37] LABS: Basophils Absolute Auto 0.01 K/uL (0.00-0.30); Basophils Percent Auto 0.2 % (0.0-3.0); Eosinophils Absolute Auto 0.08 K/uL (0.00-0.50); Eosinophils Percent Auto 1.5 % (0.0-7.0); Hematocrit 36.1 % (33.0-51.0); Hemoglobin* 11.8 gm/dL (12.0-16.0); Immature Granulocytes Abs Auto 0.01 K/uL (0.00-0.30); Immature Granulocytes Pct Auto 0.2 %; Lymphocytes Percent Auto 7.1 % (20-44); Mean Corpuscular HGB Conc 33 gm/dL (32-36); Mean Corpuscular Hemoglobin 29 pg (26-34); Mean Corpuscular Volume 90 fL (80-100); Monocytes Percent Auto 20.4 % (0.0-11.0); Neutrophils Percent Auto 70.6 % (42.0-72.0); Platelet Count* 280 K/uL (140-440); RDW Coefficient of Variation % 13.7 % (11.5-15.5); Red Blood Count 4.03 m/uL (4.00-5.20); White Blood Count* 5.24 K/uL (4.50-11.00)
[2024-10-28 06:42] LABS: HCO3 VBG 32 mmol/L (21-28); Lactate* 1.1 mmol/L (0.5-1.9); PCO2 VBG 53 mmHG (40-50); PO2 VBG < 30.1 mmHG (25-47); pH VBG 7.392 (7.32-7.43)
[2024-10-28 06:50] LABS: Slide Review Reflex No
[2024-10-28 07:15] LABS: Albumin* 3.8 g/dL (3.3-5.0); Chloride* 95 mmol/L (96-114); Sodium* 131 mmol/L (135-149)
[2024-10-28 07:16] LABS: Potassium* 4.3 mmol/L (3.6-5.1)
[2024-10-28 07:17] LABS: Creatinine* 0.7 mg/dL (0.5-1.5); Est. Creatinine Clearance* 32.79; Estimated Glomerular Filt Rate 84 ml/min
[2024-10-28 07:18] LABS: Alkaline Phosphatase* 63 U/L (40-150); Anion Gap 6 mEq/L (7-15); Aspartate Amino Transferase* 29 U/L (12-35); Bilirubin Total* 0.6 mg/dL (0.1-1.5); Blood Urea Nitrogen* 27 mg/dL (7-30); Carbon Dioxide* 30 mmol/L (20-32); Total Protein* 6.8 g/dL (6.0-8.3)
[2024-10-28 07:19] LABS: Alanine Aminotransferase* 16 U/L (4-35); Cholesterol* 178 mg/dL (90-199); Glucose* 125 mg/dL (60-115); Lipase* 59 U/L (23-300); Magnesium* 1.8 mg/dL (1.5-2.6); Phosphorus* 4.7 mg/dL (2.5-4.5); Triglycerides* 61 mg/dL (40-149)
[2024-10-28 07:20] LABS: HDL Cholesterol* 66 mg/dL (>=50); LDL Cholesterol Calculated 100 mg/dL (<100)
[2024-10-28 07:21] LABS: C Reactive Protein* 2.5 mg/dL (0.5-1.0)
--- NOTE | 2024-10-28 07:27 | PC.NURSE ---
Pt alert and oriented x3. Afebrile. Pt report 2-5/10 pain in abdomen, pain managed with PRN medications. NG tube placed, x-ray taken, radiology recommended advancement by 10 cm. Second x-ray taken, placement confirmed, NG intermittent suction started 0335.?and NG is patent and suctioning. Pt had 100 ml of yellow/brown output. Pt is tolerating an NPO with sips and chips diet. ??
[2024-10-28 07:29] LABS: Troponin I* 0.02 ng/mL (0.01-0.04)
[2024-10-28] MEDS: ONDANSETRON 2 MG/ML inj 4 MG IVP (10:22)
--- NOTE | 2024-10-28 10:41 | P.GSCN_ITS ---
History of Present Illness Consult details Date Seen: 10/28/24 Consult date: 10/28/24 Narrative: 89-year-old female was admitted to the hospital with small-bowel obstruction and I was asked by Dr. Huerta to see her in consultation. Patient developed diffuse abdominal pain yesterday in the morning. The pain was described as sharp and not improving. She was initially passing a little gas but since her admission did not pass any gas. She had small bowel movements yesterday but not today. I personally reviewed her workup in the emergency room. She was found to have an elevated WBC of 11. Today her WBC improved to normal at 5. An abdominal CT was obtained that showed dilated loops of small bowel with possible transition point in the left lower quadrant. Patient had multiple previous small bowel obstructions with 1 small bowel resection and lysis of adhesions in 2021 on 2 different occasions. Her last small-bowel obstruction was in November of 2022 and improved with conservative treatment. [facility] Medical History Hypertension ?I10 - Essential (primary) hypertension (ICD-10) Left bundle branch block ?I44.7 - Left bundle-branch block, unspecified (ICD-10) Small bowel obstruction ?K56.609 - Unspecified intestinal obstruction, unspecified as to partial versus complete obstruction (ICD-10) Postoperative ileus ?K91.89 - Other postprocedural complications and disorders of digestive system (ICD-10) ?K56.7 - Ileus, unspecified (ICD-10) Postoperative hypoxia ?R09.02 - Hypoxemia (ICD-10) ?Z98.890 - Other specified postprocedural states (ICD-10) Anemia following surgery ?D64.9 - Anemia, unspecified (ICD-10) Strain of right hip ?S76.011A - Strain of muscle, fascia and tendon of right hip, initial encounter (ICD-10) Sigmoid diverticulosis ?K57.30 - Diverticulosis of large intestine without perforation or abscess without bleeding (ICD-10) Arthritis ?M19.90 - Unspecified osteoarthritis, unspecified site (ICD-10) GERD (gastroesophageal reflux disease) ?K21.9 - Gastro-esophageal reflux disease without esophagitis (ICD-10) Atrial fibrillation ?I48.91 - Unspecified atrial fibrillation (ICD-10) Hypothyroid ?E03.9 - Hypothyroidism, unspecified (ICD-10) Surgical History S/P laparotomy with lysis of adhesions ?Z98.890 - Other specified postprocedural states (ICD-10) 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) ?Z98.890 - Other specified postprocedural states (ICD-10) History of ankle surgery (12/04/92) ?Z98.890 - Other specified postprocedural states (ICD-10) 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 She does not smoke. She drinks 1 glass of wine a day. What is your current living situation?: I presently have a place to live Problems where you live: no known problems Problems where you live details: n/a In the past 12 months, utilities in danger of being shut off: no In the past 12 mos, have been you worried that your food would run out before you had money to buy more?: never true In the past 12 mos, the food you bought just didn't last and you didn't have money to buy more?: never true Highest level of school completed/degree received: Associate degree: occupational, technical, vocational program Smoking Status: Former smoker What tobacco products do you use: cigarettes Smoking quit date/years: >15 years ago Do you use any of these nicotine containing products: None Second hand tobacco smoke exposure: No How often do you have a drink containing alcohol: 4 or more times a week Alcohol type: wine Alcohol type details: daily glass of wine with dinner How many standard drinks containing alcohol do you have on a typical day: 1 or 2 How often do you have six or more drinks on one occasion: Never AUDIT-C Alcohol total score: 4 Non-prescribed substance use: denies use Caffeine: Yes How often does anyone, including family, friends and others, physically hurt you : never How often does anyone, including family, friends and others, insult or talk down to you: never How often does anyone, including family, friends and others, threaten you with harm: never How often does anyone, including family, friends and others, scream or curse at you: never service: No Meds Home Medications and Allergies Home Medications ?Medication ?Instructions ?Recorded ?Confirmed ?Type cetirizine 10 mg tablet 10 mg PO DAILY PRN 08/05/22 10/27/24 History levothyroxine 75 mcg tablet 75 mcg PO DAILY 08/05/22 10/27/24 History lisinopril 5 mg tablet 5 mg PO HS 08/05/22 10/27/24 History melatonin 5 mg capsule 5 mg PO HS PRN 08/05/22 10/28/24 History metoprolol tartrate 50 mg tablet 50 mg PO BID 08/05/22 10/27/24 History multivitamin 1 tab PO DAILY 08/05/22 10/27/24 History naproxen 250 mg tablet 250 mg PO BID PRN 04/12/23 10/28/24 History omega 2-zmd-kqn-fish oil 60 mg-90 1 cap PO BID 04/12/23 10/27/24 History mg-500 mg capsule (Fish Oil) calcium carbonate (Calcium 500) 500 mg PO DAILY 09/23/23 10/28/24 History acetaminophen 500 mg capsule 500 - 1,000 mg PO Q6H PRN 10/28/24 10/28/24 History Allergies Allergy/AdvReac Type Severity Reaction Status Date / Time cat dander Allergy Verified 03/06/24 13:08 perfume Allergy Verified 03/06/24 13:08 Exam Narrative: Exam Narrative: General appearance: Alert, cooperative, and in no distress Pulmonary: Chest symmetric, lungs clear bilaterally Cardiovascular Heart: Regular rate and rhythm, S1, S2, no murmurs/rubs/gallops Gastrointestinal Abdominal: soft, distended, not tender to percussion, tender to palpation throughout the abdomen with most tenderness in epigastrium. Skin: Normal skin color, texture, and turgor. No rashes or lesions. Psychiatric: Alert, cooperative, normal affect. Const: Vital Signs, click to edit/add: Vital Signs - 24 hr 10/27/24 20:45 10/27/24 21:37 10/27/24 21:38 Temperature 98.4 F Pulse Rate 92 86 Pulse Rate [Pulse Oximeter] 122 H Respiratory Rate 20 Blood Pressure 122/65 Blood Pressure [Ri ght Arm] Blood Pressure [Ri ght Upper Arm] 124/66 Pulse Oximetry 94 94 94 Oxygen Delivery Me thod Room Air 10/27/24 21:45 10/27/24 22:00 10/27/24 22:02 Temperature Pulse Rate 84 86 79 Pulse Rate [Pulse Oximeter] Respiratory Rate Blood Pressure 112/71 Blood Pressure [Ri ght Arm] Blood Pressure [Ri ght Upper Arm] Pulse Oximetry 95 96 97 Oxygen Delivery Me thod 10/27/24 22:15 10/27/24 22:37 10/27/24 22:45 Temperature Pulse Rate 87 88 95 Pulse Rate [Pulse Oximeter] Respiratory Rate Blood Pressure Blood Pressure [Ri ght Arm] Blood Pressure [Ri ght Upper Arm] Pulse Oximetry 97 96 88 Oxygen Delivery Me thod 10/27/24 22:50 10/28/24 00:14 10/28/24 00:14 Temperature 97.7 F Pulse Rate Pulse Rate [Pulse Oximeter] 85 Respiratory Rate 16 16 Blood Pressure 137/82 Blood Pressure [Ri ght Arm] 138/78 Blood Pressure [Ri ght Upper Arm] Pulse Oximetry 91 90 Oxygen Delivery Me thod Room Air Room Air 10/28/24 03:09 10/28/24 03:14 Temperature 97.6 F Pulse Rate 92 Pulse Rate [Pulse Oximeter] 102 H Respiratory Rate 16 Blood Pressure Blood Pressure [Ri ght Arm] 136/82 Blood Pressure [Ri ght Upper Arm] Pulse Oximetry 90 Oxygen Delivery Me thod Room Air Results Labs Labs: Abnormal lab results 10/27/24 10/28/24 Range/Units 21:30 05:55 WBC 11.46 H (4.50-11.00) K/uL Hgb 11.8 L (12.0-16.0) gm/dL Neut % (Auto) 87.0 H (42.0-72.0) % Lymph % (Auto) 4.5 L 7.1 L (20-44) % [place] % (Auto) 20.4 H (0.0-11.0) % Neut # (Auto) 10.00 H (1.7-7.0) K/uL Lymph # (Auto) 0.50 L 0.40 L (0.90-2.90) K/uL [place] # (Auto) 1.10 H (0.00-0.90) K/UL VBG pCO2 53 H (40-50) mmHG VBG HCO3 32 H (21-28) mmol/L Sodium 130 L 131 L (135-149) mmol/L Chloride 92 L 95 L (96-114) mmol/L Anion Gap 6 L (7-15) mEq/L Glucose 166 H 125 H (60-115) mg/dL Calcium 11.1 H (8.4-10.6) mg/dL Phosphorus 4.7 H (2.5-4.5) mg/dL C-Reactive Protein 1.1 H 2.5 H (0.5-1.0) mg/dL Diabetes panel 10/27/24 10/28/24 Range/Units 21:30 05:55 Sodium 130 L 131 L (135-149) mmol/L Potassium 3.9 4.3 (3.6-5.1) mmol/L Chloride 92 L 95 L (96-114) mmol/L Carbon Dioxide 26 30 (20-32) mmol/L BUN 27 27 (7-30) mg/dL Creatinine 0.8 0.7 (0.5-1.5) mg/dL Glucose 166 H 125 H (60-115) mg/dL Calcium 11.1 H 10.0 (8.4-10.6) mg/dL AST 29 (12-35) U/L ALT 16 (4-35) U/L Alkaline Phosphatase 63 (40-150) U/L Total Protein 6.8 (6.0-8.3) g/dL Albumin 3.8 (3.3-5.0) g/dL Triglycerides 61 (40-149) mg/dL HDL Cholesterol 66 (>=50) mg/dL Calcium panel 10/27/24 10/28/24 Range/Units 21:30 05:55 Calcium 11.1 H 10.0 (8.4-10.6) mg/dL Phosphorus 4.7 H (2.5-4.5) mg/dL Albumin 3.8 (3.3-5.0) g/dL Pituitary panel 10/27/24 10/28/24 Range/Units 21:30 05:55 Sodium 130 L 131 L (135-149) mmol/L Potassium 3.9 4.3 (3.6-5.1) mmol/L Chloride 92 L 95 L (96-114) mmol/L Carbon Dioxide 26 30 (20-32) mmol/L BUN 27 27 (7-30) mg/dL Creatinine 0.8 0.7 (0.5-1.5) mg/dL Glucose 166 H 125 H (60-115) mg/dL Calcium 11.1 H 10.0 (8.4-10.6) mg/dL Adrenal panel 10/27/24 10/28/24 Range/Units 21:30 05:55 Sodium 130 L 131 L (135-149) mmol/L Potassium 3.9 4.3 (3.6-5.1) mmol/L Chloride 92 L 95 L (96-114) mmol/L Carbon Dioxide 26 30 (20-32) mmol/L BUN 27 27 (7-30) mg/dL Creatinine 0.8 0.7 (0.5-1.5) mg/dL Glucose 166 H 125 H (60-115) mg/dL Calcium 11.1 H 10.0 (8.4-10.6) mg/dL Total Bilirubin 0.6 (0.1-1.5) mg/dL AST 29 (12-35) U/L ALT 16 (4-35) U/L Alkaline Phosphatase 63 (40-150) U/L Total Protein 6.8 (6.0-8.3) g/dL Albumin 3.8 (3.3-5.0) g/dL All other labs normal. Progress Note:A&P Assessment and plan (1) Small bowel obstruction: Status: Acute Assessment and Plan: 89-year-old female admitted with small-bowel obstruction. NG tube was placed and put out only small amount of fluid so far. Patient still has abdominal distension and is not passing gas. She does not have peritoneal signs. We will continue with conservative treatment for now. I recommended to continue ambulating as much as possible.
--- NOTE | 2024-10-28 13:41 | P.IMPN_ITS ---
Progress Note: A&P Assessment and plan (1) Hypertension: Problem details: - hold oral lisinopril and metoprolol - metoprolol tartrate 5 mg IV q.6 hours while NPO - monitor on telemetry Status: Acute (2) Small bowel obstruction: Problem details: - recurrent - NG placed 10/28/24 - remains NPO on IVFs with prn antiemetics and IV analgesia - General Surgery following Status: Acute (3) Hypokalemia: Problem details: - stable, continue to follow Status: Acute Plan - continue NPO status - General Surgery following Subjective Date Seen: 10/28/24 Interval history: Brandy was admitted to the hospital last night for recurrent SBO. Dr. Cunningham of General Surgery also following. Has NG in place, abdomen remains distended, no flatus. Comorbidities stable, no concerns for hospitalist team. Exam Narrative: Exam Narrative: GEN: Alert and oriented, nontoxic HEENT: NG in place, no scleral icterus CV: RRR, No concerning murmurs R: LCTA bilaterally without concerning wheezing Ab: Distended, + ttp, hypoactive bowel sounds Skin: No concerning skin lesions or rashes on exposed skin Neuro: Nonfocal Psych: Appropriate Const: Vital Signs, click to edit/add: Vital Signs - 24 hr 10/27/24 20:45 10/27/24 21:37 10/27/24 21:38 Temperature 98.4 F Pulse Rate 92 86 Pulse Rate [Pulse Oximeter] 122 H Respiratory Rate 20 Blood Pressure 122/65 Blood Pressure [Ri ght Arm] Blood Pressure [Ri ght Upper Arm] 124/66 Pulse Oximetry 94 94 94 Oxygen Delivery Me thod Room Air 10/27/24 21:45 10/27/24 22:00 10/27/24 22:02 Temperature Pulse Rate 84 86 79 Pulse Rate [Pulse Oximeter] Respiratory Rate Blood Pressure 112/71 Blood Pressure [Ri ght Arm] Blood Pressure [Ri ght Upper Arm] Pulse Oximetry 95 96 97 Oxygen Delivery Me thod 10/27/24 22:15 10/27/24 22:37 10/27/24 22:45 Temperature Pulse Rate 87 88 95 Pulse Rate [Pulse Oximeter] Respiratory Rate Blood Pressure Blood Pressure [Ri ght Arm] Blood Pressure [Ri ght Upper Arm] Pulse Oximetry 97 96 88 Oxygen Delivery Me thod 10/27/24 22:50 10/28/24 00:14 10/28/24 00:14 Temperature 97.7 F Pulse Rate Pulse Rate [Pulse Oximeter] 85 Respiratory Rate 16 16 Blood Pressure 137/82 Blood Pressure [Ri ght Arm] 138/78 Blood Pressure [Ri ght Upper Arm] Pulse Oximetry 91 90 Oxygen Delivery Ri thod Room Air Room Air 10/28/24 03:09 10/28/24 03:14 10/28/24 07:00 Temperature 97.6 F Pulse Rate 92 Pulse Rate [Pulse Oximeter] 102 H Respiratory Rate 16 18 Blood Pressure Blood Pressure [Ri ght Arm] 136/82 Blood Pressure [Ri ght Upper Arm] Pulse Oximetry 90 90 Oxygen Delivery Ri thod Room Air Room Air 10/28/24 07:00 10/28/24 07:00 10/28/24 11:00 Temperature 98 F 97.8 F Pulse Rate 85 Pulse Rate [Pulse Oximeter] 98 70 Respiratory Rate 20 16 Blood Pressure Blood Pressure [Ri ght Arm] 138/70 139/72 Blood Pressure [Ri ght Upper Arm] Pulse Oximetry 90 92 Oxygen Delivery Ri thod Room Air Room Air Labs Labs: Laboratory Results - last 24 hr 10/27/24 10/28/24 21:30 05:55 WBC 11.46 H 5.24 RBC 4.45 4.03 Hgb 13.2 11.8 L Hct 39.4 36.1 MCV 89 90 MCH 30 29 MCHC 34 33 RDW Coeff of [place] 13.7 13.7 Plt Count 317 280 Neut % (Auto) 87.0 H 70.6 Lymph % (Auto) 4.5 L 7.1 L [place] % (Auto) 7.8 20.4 H Eos % (Auto) 0.5 1.5 Baso % (Auto) 0.1 0.2 Neut # (Auto) 10.00 H 3.70 Lymph # (Auto) 0.50 L 0.40 L [place] # (Auto) 0.90 1.10 H Eos # (Auto) 0.10 0.08 Baso # (Auto) 0.00 0.01 Abs Immat Gran (auto) 0.00 0.01 Imm/Tot Granulo (auto) 0.1 0.2 VBG pH 7.392 VBG pCO2 53 H VBG pO2 < 30.1 VBG HCO3 32 H Sodium 130 L 131 L Potassium 3.9 4.3 Chloride 92 L 95 L Carbon Dioxide 26 30 Anion Gap 12 6 L BUN 27 27 Creatinine 0.8 0.7 Estimated Creat Clear 32.79 32.79 Estimated GFR 71 84 Glucose 166 H 125 H Lactate 1.1 Calcium 11.1 H 10.0 Phosphorus 4.7 H Magnesium 1.8 Total Bilirubin 0.6 AST 29 ALT 16 Alkaline Phosphatase 63 Troponin I 0.02 C-Reactive Protein 1.1 H 2.5 H Total Protein 6.8 Albumin 3.8 Triglycerides 61 Cholesterol 178 LDL Cholesterol, Calc 100 HDL Cholesterol 66 Lipase 59
[2024-10-28] MEDS: phenoL 1.4 % THROAT SPRAY 1 SPRAY MUCOUS MEM (17:54)
--- NOTE | 2024-10-28 19:32 | PC.NURSE ---
shift note: pt afeb. HR 80's-100's. Pt denies c.p or chest pressure. Pt denies nausea. abd distended and taunt. BS absent x4. Pt ambulating lewis sba x5. LS clr. IV patent. Pt medicated x1 for 4/10 abd pain this a.m
[2024-10-29] VITALS (8 sets, daily range): BP systolic 102–171; BP diastolic 48–90; PULSE 85–104; RESP 16–19; TEMP 36.4–37.1; O2SAT 90–99
[2024-10-29] MEDS: 0.9 % SODIUM CHLORIDE 1000 ml 1,000 ML 125 ML IV ×3 (00:24→16:40)
[2024-10-29] MEDS: LABETALOL HCL 5 MG/ML inj 10 MG IVP (00:24)
[2024-10-29] MEDS: METOPROLOL TARTRATE 1 MG/ML inj 5 MG IVP ×6 (02:27→22:16)
--- NOTE | 2024-10-29 05:32 | PC.NURSE ---
Shift note: Pt continue to be with the NG tube. Drained about 100mls of yellowish gastric content. Pt endorses passing gas with hypoactive bowel sound. Abdomen continue to be distended, however, pain is minimal. No pain medication requested. No fever recorded. She had small BM this morning.
[2024-10-29 06:35] LABS: Basophils Absolute Auto 0.01 K/uL (0.00-0.30); Basophils Percent Auto 0.2 % (0.0-3.0); Eosinophils Absolute Auto 0.27 K/uL (0.00-0.50); Eosinophils Percent Auto 4.7 % (0.0-7.0); Hematocrit 31.7 % (33.0-51.0); Hemoglobin* 10.2 gm/dL (12.0-16.0); Immature Granulocytes Abs Auto 0.01 K/uL (0.00-0.30); Immature Granulocytes Pct Auto 0.2 %; Mean Corpuscular HGB Conc 32 gm/dL (32-36); Mean Corpuscular Hemoglobin 30 pg (26-34); Mean Corpuscular Volume 92 fL (80-100); Monocytes Percent Auto 17.4 % (0.0-11.0); Neutrophils Percent Auto 62.5 % (42.0-72.0); Platelet Count* 245 K/uL (140-440); RDW Coefficient of Variation % 14.4 % (11.5-15.5); Red Blood Count 3.45 m/uL (4.00-5.20); Slide Review Reflex No; White Blood Count* 5.75 K/uL (4.50-11.00)
[2024-10-29 06:38] LABS: Chloride* 105 mmol/L (96-114); Potassium* 3.6 mmol/L (3.6-5.1); Sodium* 135 mmol/L (135-149)
[2024-10-29 06:41] LABS: Anion Gap 8 mEq/L (7-15); Blood Urea Nitrogen* 19 mg/dL (7-30); Carbon Dioxide* 22 mmol/L (20-32); Creatinine* 0.7 mg/dL (0.5-1.5); Est. Creatinine Clearance* 32.79; Estimated Glomerular Filt Rate 84 ml/min; Glucose* 91 mg/dL (60-115)
[2024-10-29 06:42] LABS: Calcium* 8.8 mg/dL (8.4-10.6)
[2024-10-29] MEDS: BENZOCAINE/MENTHOL 1 EACH LOZENGE MUCOUS MEM ×2 (08:39→18:32)
--- NOTE | 2024-10-29 09:04 | NUTR.NU ---
RDN with MD consult for recurrent small bowel obstruction. Patient admitted with less than 24 hour history a of increasing abdominal pain, nausea, and vomiting found to have small bowel obstruction. She has had multiple small bowel obstructions since 2020. Current diet is NPO. Weight history is stable. Today is day 4 of inadequate oral intakes on NPO/Clears. RDN will continue to monitor and follow-up at a more appropriate time.
--- NOTE | 2024-10-29 09:27 | P.IMPN_ITS ---
Progress Note: A&P Assessment and plan (1) Hypertension: Problem details: - holding oral lisinopril and metoprolol - metoprolol tartrate 5 mg IV q.6 hours while NPO - monitor on telemetry, intermittent sinus tachycardia when walking, improves at rest Status: Acute (2) Small bowel obstruction: Problem details: - recurrent - NG placed 10/28/24, continue this today - remains NPO on IVFs with prn antiemetics and IV analgesia - General Surgery following Status: Acute (3) Hypokalemia: Problem details: - stable, continue to follow - resolved 10/29 Status: Acute Plan - remains NPO with NG in place, bowel function slowly returning - SCDs, ambulation, TEDs for ppx - appreciate input from General Surgery Subjective Date Seen: 10/29/24 Interval history: Brandy was admitted to the hospital on 10/[address] Cunningham of General Surgery also following. NG remains in place and draining. Feeling better and passing flatus today, still has distention and abdominal tenderness. Ambulating regularly. Comorbidities stable. Brandy has no concerns for hospitalist team today. Exam Narrative: Exam Narrative: GEN: Alert and oriented, nontoxic and sitting comfortably in bedside chair HEENT: NG in place and draining CV: RRR, No concerning murmurs R: Breathing comfortably, no wheezing Ab: Improved distention, bowel sounds present but hypoactive, mild ttp Skin: No concerning skin lesions or rashes on exposed skin Neuro: Nonfocal Psych: Appropriate Const: Vital Signs, click to edit/add: Vital Signs - 24 hr 10/28/24 11:00 10/28/24 15:00 10/28/24 15:00 Temperature 97.8 F 98 F Pulse Rate Pulse Rate [Pulse Oximeter] 70 72 72 Respiratory Rate 16 18 18 Blood Pressure [Ri ght Arm] 139/72 142/90 H Pulse Oximetry 92 89 Oxygen Delivery Me thod Room Air Room Air 10/28/24 15:00 10/28/24 19:00 10/28/24 23:00 Temperature 99.4 F Pulse Rate Pulse Rate [Pulse Oximeter] 120 H 112 H Respiratory Rate 18 18 18 Blood Pressure [Ri ght Arm] 149/70 H Pulse Oximetry 89 90 Oxygen Delivery Me thod Room Air Room Air 10/28/24 23:00 10/28/24 23:00 10/28/24 23:00 Temperature 99 F Pulse Rate 104 H Pulse Rate [Pulse Oximeter] 112 H Respiratory Rate 18 18 Blood Pressure [Ri t Arm] 133/84 Pulse Oximetry 90 90 Oxygen Delivery Me thod Room Air Room Air 10/29/24 02:32 10/29/24 05:42 Temperature 98.5 F Pulse Rate Pulse Rate [Pulse Oximeter] 104 H 89 Respiratory Rate 18 Blood Pressure [[facility] Arm] 102/48 L 136/78 Pulse Oximetry 90 Oxygen Delivery Me thod Room Air Labs Labs: Laboratory Results - last 24 hr 10/29/24 06:13 WBC 5.75 RBC 3.45 L Hgb 10.2 L Hct 31.7 L MCV 92 MCH 30 MCHC 32 RDW Coeff of [place] 14.4 Plt Count 245 Neut % (Auto) 62.5 Lymph % (Auto) 15.0 L [place] % (Auto) 17.4 H Eos % (Auto) 4.7 Baso % (Auto) 0.2 Neut # (Auto) 3.60 Lymph # (Auto) 0.90 [place] # (Auto) 1.00 H Eos # (Auto) 0.27 Baso # (Auto) 0.01 Abs Immat Gran (auto) 0.01 Imm/Tot Granulo (auto) 0.2 Sodium 135 Potassium 3.6 Chloride 105 Carbon Dioxide 22 Anion Gap 8 BUN 19 Creatinine 0.7 Estimated Creat Clear 32.79 Estimated GFR 84 Glucose 91 Calcium 8.8
--- NOTE | 2024-10-29 10:29 | PM.GSPN ---
Subjective Subjective Date Seen: 10/29/24 Interval history: Patient is doing better today. Her pain is somewhat improved, she denies vomiting. Her NG tube not put lot of fluid out overnight. She started to pass gas. She is ambulating. Exam Narrative: Exam Narrative: Abdomen is soft, mildly distended/protuberant, not tender to percussion throughout the abdomen but tender to palpation in bilateral lower quadrants. Const: Vital Signs, click to edit/add: Vital Signs - 24 hr 10/28/24 11:00 10/28/24 15:00 10/28/24 15:00 Temperature 97.8 F 98 F Pulse Rate Pulse Rate [Pulse Oximeter] 70 72 72 Respiratory Rate 16 18 18 Blood Pressure [Ri ght Arm] 139/72 142/90 H Pulse Oximetry 92 89 Oxygen Delivery Me thod Room Air Room Air 10/28/24 15:00 10/28/24 19:00 10/28/24 23:00 Temperature 99.4 F Pulse Rate Pulse Rate [Pulse Oximeter] 120 H 112 H Respiratory Rate 18 18 18 Blood Pressure [Ri ght Arm] 149/70 H Pulse Oximetry 89 90 Oxygen Delivery Me thod Room Air Room Air 10/28/24 23:00 10/28/24 23:00 10/28/24 23:00 Temperature 99 F Pulse Rate 104 H Pulse Rate [Pulse Oximeter] 112 H Respiratory Rate 18 18 Blood Pressure [Ri ght Arm] 133/84 Pulse Oximetry 90 90 Oxygen Delivery Me thod Room Air Room Air 10/29/24 02:32 10/29/24 05:42 Temperature 98.5 F Pulse Rate Pulse Rate [Pulse Oximeter] 104 H 89 Respiratory Rate 18 Blood Pressure [Ri ght Arm] 102/48 L 136/78 Pulse Oximetry 90 Oxygen Delivery Me thod Room Air Progress Note:A&P Assessment and plan (1) Small bowel obstruction: Status: Acute Plan 89-year-old female admitted to the hospital small-bowel obstruction. I discussed with the patient that we will leave NG tube in for another day since she still has tenderness to palpation in bilateral lower quadrants. Patient will continue ambulating. Possibly remove NG tube tomorrow.
--- NOTE | 2024-10-29 11:44 | PC.SOCIAL ---
Social work buyer intern met pt to complete a discharge planning assessment. Pt lives with her and will return to her home in [place] upon discharge. They have daughters and other family in the surrounding area that complete housework and are available to assist with tasks. The pt receives no current home services and is not interested in any at this time as she feels sufficiently supported by family. Pt moved into a new house recently and has laundry on the first floor as well as an attached garage. Pt's will transport her home upon D/C. Pt has no further questions or concerns at this time, but know she can reach out to if something comes up. Social work to follow up as needed.
--- NOTE | 2024-10-29 19:03 | PC.NURSE ---
End of Shift: The patient is pleasant and alert and orientated, NG tube to LIS, green/brown cloudy gastric contents. The patient reports intermittent abdominal discomfort, no need for pain meds the patient reported it as manageable. Up Independent after disconnected from NG. VS noted to be HTN and HR to be tachycardic and in afib with any type of activity. Scheduled metoprolol. 2 hard BM's today. passing flatus. Will make needs known. Lozenges PRN. Call light within reach, Regina HARO BSN
[2024-10-30] VITALS (12 sets, daily range): BP systolic 157–179; BP diastolic 86–107; PULSE 69–111; RESP 18–20; TEMP 36.3–36.9; O2SAT 91–99
[2024-10-30] MEDS: 0.9 % SODIUM CHLORIDE 1000 ml 1,000 ML 125 ML IV (00:21)
[2024-10-30] MEDS: METOPROLOL TARTRATE 1 MG/ML inj 5 MG IVP ×3 (02:48→11:18)
[2024-10-30 06:38] LABS: Basophils Absolute Auto 0.02 K/uL (0.00-0.30); Basophils Percent Auto 0.2 % (0.0-3.0); Eosinophils Percent Auto 2.1 % (0.0-7.0); Hematocrit 32.5 % (33.0-51.0); Hemoglobin* 10.7 gm/dL (12.0-16.0); Immature Granulocytes Abs Auto 0.04 K/uL (0.00-0.30); Immature Granulocytes Pct Auto 0.4 %; Lymphocytes Percent Auto 7.4 % (20-44); Mean Corpuscular HGB Conc 33 gm/dL (32-36); Mean Corpuscular Hemoglobin 30 pg (26-34); Mean Corpuscular Volume 92 fL (80-100); Monocytes Percent Auto 9.7 % (0.0-11.0); Neutrophils Percent Auto 80.2 % (42.0-72.0); Platelet Count* 242 K/uL (140-440); RDW Coefficient of Variation % 14.2 % (11.5-15.5); Red Blood Count 3.54 m/uL (4.00-5.20); White Blood Count* 9.74 K/uL (4.50-11.00)
[2024-10-30 06:49] LABS: Slide Review Reflex No
[2024-10-30 07:09] LABS: Chloride* 104 mmol/L (96-114); Sodium* 134 mmol/L (135-149)
[2024-10-30 07:10] LABS: Potassium* 3.5 mmol/L (3.6-5.1)
[2024-10-30 07:12] LABS: Anion Gap 11 mEq/L (7-15); Carbon Dioxide* 19 mmol/L (20-32); Creatinine* 0.5 mg/dL (0.5-1.5); Est. Creatinine Clearance* 32.79; Estimated Glomerular Filt Rate 91 ml/min
[2024-10-30 07:13] LABS: Blood Urea Nitrogen* 11 mg/dL (7-30); Calcium* 8.7 mg/dL (8.4-10.6); Glucose* 81 mg/dL (60-115)
--- NOTE | 2024-10-30 07:41 | PC.NURSE ---
Shift note ([id number]): Patient pleasant, alert and oriented. Ambulates independently in room. NG tube patent and draining dark brown/green fluid. Pt had four small BMs of marble shaped stools. Patient rated pain 2/10.?
[2024-10-30] MEDS: LEVOTHYROXINE 75 MCG TABLET PO (08:50)
[2024-10-30] MEDS: METOPROLOL TARTRATE 50 MG TABLET PO ×2 (08:50→19:29)
--- NOTE | 2024-10-30 10:22 | PM.IMPN1 ---
Progress Note: A&P Assessment and plan (1) Hypertension: Problem details: - held oral lisinopril and metoprolol on admission, restarted oral medications 10/30 - metoprolol tartrate 5 mg IV q.6 hours while NPO - monitor on telemetry, intermittent sinus tachycardia when walking, improves with rest Status: Acute (2) Small bowel obstruction: Problem details: - recurrent - NG placed 10/28/24, intermittent clamping with medications as of 10/30 - General Surgery following - starting clear liquids 10/30 Status: Acute (3) Hypokalemia: Problem details: - stable, continue to follow and replace as needed Status: Acute Plan - per above Subjective Date Seen: 10/30/24 Interval history: Brandy was admitted to the hospital on 10/[address]. Cunningham of General Surgery also following. NG remains in place; had this clamped for oral medications this morning. Did have mild discomfort after clamping, then had some increased drainage from NG after unclamping. Overall, continues to feel better. + small BM this morning. Ambulating. Comorbidities stable. Brandy has no concerns for hospitalist team today. Exam Narrative: Exam Narrative: GEN: Alert HEENT: EOMIs bilaterally, no scleral icterus CV: RRR Ab: + distention (improved), + bowel sounds Ext: wwp, no concerning edema Skin: No concerning skin lesions or rashes on exposed skin Neuro: Nonfocal Psych: Appropriate Const: Vital Signs, click to edit/add: Vital Signs - 24 hr 10/29/24 11:11 10/29/24 15:00 10/29/24 15:00 Temperature 98.8 F 98.1 F Pulse Rate Pulse Rate [Pulse Oximeter] 85 85 Respiratory Rate 18 16 16 Blood Pressure [Ri ght Arm] 142/77 H 159/90 H Pulse Oximetry 95 96 96 Oxygen Delivery Me thod Room Air Room Air Room Air 10/29/24 15:00 10/29/24 19:00 10/29/24 22:09 Temperature 97.5 F L 98.3 F Pulse Rate 92 Pulse Rate [Pulse Oximeter] 92 92 Respiratory Rate 19 18 Blood Pressure [Ri ght Arm] 171/82 H 160/81 H Pulse Oximetry 95 96 Oxygen Delivery Me thod Room Air Room Air 10/29/24 23:00 10/29/24 23:00 10/30/24 02:50 Temperature 98.2 F Pulse Rate 97 Pulse Rate [Pulse Oximeter] 88 Respiratory Rate 19 20 Blood Pressure [Ri ght Arm] 169/86 H Pulse Oximetry 95 91 Oxygen Delivery Me thod Room Air Room Air 10/30/24 06:56 10/30/24 07:00 10/30/24 07:30 Temperature 98.5 F Pulse Rate 111 H Pulse Rate [Pulse Oximeter] 73 Respiratory Rate 20 20 Blood Pressure [Ri ght Arm] 172/90 H Pulse Oximetry 94 94 Oxygen Delivery Me thod Room Air Room Air 10/30/24 07:30 Temperature Pulse Rate Pulse Rate [Pulse Oximeter] 73 Respiratory Rate 20 Blood Pressure [Ri ght Arm] Pulse Oximetry Oxygen Delivery Me thod Labs Labs: Laboratory Results - last 24 hr 10/30/24 06:10 WBC 9.74 RBC 3.54 L Hgb 10.7 L Hct 32.5 L MCV 92 MCH 30 MCHC 33 RDW Coeff of [place] 14.2 Plt Count 242 Neut % (Auto) 80.2 H Lymph % (Auto) 7.4 L [place] % (Auto) 9.7 Eos % (Auto) 2.1 Baso % (Auto) 0.2 Neut # (Auto) 7.80 H Lymph # (Auto) 0.70 L [place] # (Auto) 0.90 Eos # (Auto) 0.20 Baso # (Auto) 0.02 Abs Immat Gran (auto) 0.04 Imm/Tot Granulo (auto) 0.4 Sodium 134 L Potassium 3.5 L Chloride 104 Carbon Dioxide 19 L Anion Gap 11 BUN 11 Creatinine 0.5 Estimated Creat Clear 32.79 Estimated GFR 91 Glucose 81 Calcium 8.7
--- NOTE | 2024-10-30 13:36 | PM.GSPN ---
Subjective Subjective Date Seen: 10/30/24 Interval history: Patient is passing gas and had 2 small bowel movements. Her NG was clamped today and she felt bloated after sometime 1 NG was clamped. Pain is significantly improved. Exam Narrative: Exam Narrative: Abdomen is soft, mildly distended, not tender to palpation, this is improved from yesterday. Const: Vital Signs, click to edit/add: Vital Signs - 24 hr 10/29/24 15:00 10/29/24 15:00 10/29/24 15:00 Temperature 98.1 F Pulse Rate 92 Pulse Rate [Pulse Oximeter] 85 Respiratory Rate 16 16 Blood Pressure [Ri ght Arm] 159/90 H Pulse Oximetry 96 96 Oxygen Delivery Me thod Room Air Room Air 10/29/24 19:00 10/29/24 22:09 10/29/24 23:00 Temperature 97.5 F L 98.3 F Pulse Rate Pulse Rate [Pulse Oximeter] 92 92 Respiratory Rate 19 18 19 Blood Pressure [Ri ght Arm] 171/82 H 160/81 H Pulse Oximetry 95 96 95 Oxygen Delivery Me thod Room Air Room Air Room Air 10/29/24 23:00 10/30/24 02:50 10/30/24 06:56 Temperature 98.2 F Pulse Rate 97 111 H Pulse Rate [Pulse Oximeter] 88 Respiratory Rate 20 Blood Pressure [Ri ght Arm] 169/86 H Pulse Oximetry 91 Oxygen Delivery Me thod Room Air 10/30/24 07:00 10/30/24 07:30 10/30/24 07:30 Temperature 98.5 F Pulse Rate Pulse Rate [Pulse Oximeter] 73 73 Respiratory Rate 20 20 20 Blood Pressure [Ri ght Arm] 172/90 H Pulse Oximetry 94 94 Oxygen Delivery Me thod Room Air Room Air 10/30/24 11:15 Temperature 98.3 F Pulse Rate Pulse Rate [Pulse Oximeter] 81 Respiratory Rate 18 Blood Pressure [Ri ght Arm] 179/89 H Pulse Oximetry 94 Oxygen Delivery Me thod Room Air Progress Note:A&P Assessment and plan (1) Small bowel obstruction: Status: Acute Assessment and Plan: 89-year-old female admitted to the hospital small-bowel obstruction. Patient is improving with conservative treatment slowly. Will keep her NG clamped and advanced to sips of clears. Possibly discharge remove NG tube tomorrow.
[2024-10-30] MEDS: POTASSIUM CHLORIDE 10 MEQ CAPSULE ER 20 MEQ PO (15:43)
--- NOTE | 2024-10-30 19:00 | PC.NURSE ---
End of Shift: pt is very sweet and pleasant. abd pain 1-. she is getting po tylenol. for back pain. ng is at 65 and clamped. , NG tube was at LIS, green/brown cloudy gastric contents. later is was clamped. she is Up Independent after disconnected from NG. tele shows SA. Scheduled metoprolol x1. she is now back on po meds. . 3 small hard BM's today. passing flatus. . Call light within reach, teds are on and off. she can have sips of clears.
[2024-10-30] MEDS: ACETAMINOPHEN 650 MG TABLET ER 1300 MG PO (19:16)
[2024-10-30] MEDS: 0.9 % SODIUM CHLORIDE 500 ML 500 ML IV (19:17)
[2024-10-30] MEDS: lisinopriL 5 MG TABLET PO (19:28)
[2024-10-31] VITALS (8 sets, daily range): BP systolic 143–184; BP diastolic 70–100; PULSE 68–103; RESP 16–20; TEMP 36.3–36.7; O2SAT 93–97
[2024-10-31] MEDS: METOPROLOL TARTRATE 1 MG/ML inj 5 MG IVP (05:34)
[2024-10-31] MEDS: LEVOTHYROXINE 75 MCG TABLET PO (05:38)
--- NOTE | 2024-10-31 06:24 | PC.NURSE ---
End of shift [id number]: Pt has been A&O and afebrile all night. Up ad liborio in her room with a steady gait. VSS with exception to TELE reading sustained SVT at 0520 when pt was up to the bathroom warranting a dose of IV metoprolol to be given @ 0535- strip printed and placed in chart. Rhythm has been back to sinus arrhythmia after IV metoprolol.?PIV in left FA is SL and C/D/I. Pt has had minimal pain overnight; only received PRN Tylenol x1 @ 1915. Other than early childhood aide classroom; TELE has read sinus arrhythmia rate ranging 60s ? 90s bpm. ?
[2024-10-31 07:29] LABS: Chloride* 101 mmol/L (96-114)
[2024-10-31 07:30] LABS: Potassium* 3.5 mmol/L (3.6-5.1); Sodium* 132 mmol/L (135-149)
[2024-10-31 07:32] LABS: Creatinine* 0.5 mg/dL (0.5-1.5); Est. Creatinine Clearance* 32.79; Estimated Glomerular Filt Rate 91 ml/min
[2024-10-31 07:33] LABS: Anion Gap 14 mEq/L (7-15); Blood Urea Nitrogen* 12 mg/dL (7-30); Calcium* 9.1 mg/dL (8.4-10.6); Carbon Dioxide* 17 mmol/L (20-32); Glucose* 77 mg/dL (60-115)
[2024-10-31] MEDS: ACETAMINOPHEN 650 MG TABLET ER 1300 MG PO ×2 (09:15→17:11)
[2024-10-31] MEDS: METOPROLOL TARTRATE 50 MG TABLET PO ×2 (09:15→20:47)
--- NOTE | 2024-10-31 11:24 | PM.IMPN1 ---
Progress Note: A&P Assessment and plan (1) Small bowel obstruction: Problem details: - recurrent - NG placed 10/28/24, intermittent clamping with medications as of 10/30, started clear liquids 10/30 - General Surgery following Status: Acute (2) Hyponatremia: Problem details: - stable, mild, continue to follow Status: Acute (3) Hypothyroid: Problem details: - on Levothyroxine Status: Acute (4) Hypertension: Problem details: - held oral lisinopril and metoprolol on admission, restarted oral medications 10/30 - metoprolol tartrate 5mg IV Q6H prn - monitor on telemetry, intermittent sinus tachycardia when walking, improves with rest Status: Acute (5) Hypokalemia: Problem details: - stable, continue to follow and replace as needed Status: Acute Plan - likely NG out today - home when tolerating po, possibly tomorrow Subjective Date Seen: 10/31/24 Interval history: Brandy was admitted to the hospital on 10/[address] Cunningham of General Surgery also following. NG had been placed upon admission, has been clamped for meds and clear liquids over the past 24 hours. Feeling better with no pain or nausea, mild distention with clears. Hoping to have NG out today. + flatus, + BMs. Ambulating. Tolerating po medications with stable comorbidities (prn IVF bolus and prn IV Metoprolol for intermittent sinus tachycardia). No concerns for hospitalist team today. Exam Narrative: Exam Narrative: Sitting comfortably in bedside chair, nontoxic Abdomen less distended Extremities warm and well perfused without edema Const: Vital Signs, click to edit/add: Vital Signs - 24 hr 10/30/24 15:00 10/30/24 15:00 10/30/24 16:00 Temperature 98.2 F Pulse Rate Pulse Rate [Pulse Oximeter] 103 H 103 H Respiratory Rate 18 18 18 Blood Pressure [Ri ght Arm] 159/106 H Pulse Oximetry 95 94 Oxygen Delivery Me thod Room Air Room Air 10/30/24 16:01 10/30/24 19:00 10/30/24 21:37 Temperature 97.8 F Pulse Rate 104 H Pulse Rate [Pulse Oximeter] 99 Respiratory Rate 18 Blood Pressure [Ri ght Arm] 158/107 H 157/98 H Pulse Oximetry 99 Oxygen Delivery Me thod Room Air 10/30/24 23:00 10/30/24 23:00 10/30/24 23:00 Temperature Pulse Rate 69 Pulse Rate [Pulse Oximeter] 69 Respiratory Rate 18 18 Blood Pressure [Ri ght Arm] Pulse Oximetry 99 Oxygen Delivery Me thod Room Air 10/30/24 23:52 10/31/24 05:25 10/31/24 07:00 Temperature 97.4 F L 97.3 F L Pulse Rate Pulse Rate [Pulse Oximeter] 75 103 H 82 Respiratory Rate 20 18 18 Blood Pressure [Ri ght Arm] 171/91 H 143/76 H Pulse Oximetry 94 93 Oxygen Delivery Wa thod Room Air Room Air 10/31/24 07:00 10/31/24 07:00 10/31/24 07:00 Temperature 97.9 F Pulse Rate 85 Pulse Rate [Pulse Oximeter] 82 Respiratory Rate 20 Blood Pressure [Ri ght Arm] 155/70 H Pulse Oximetry 94 94 Oxygen Delivery Wa thod Room Air Room Air Labs Labs: Laboratory Results - last 24 hr 10/31/24 06:23 Sodium 132 L Potassium 3.5 L Chloride 101 Carbon Dioxide 17 L Anion Gap 14 BUN 12 Creatinine 0.5 Estimated Creat Clear 32.79 Estimated GFR 91 Glucose 77 Calcium 9.1
[2024-10-31] MEDS: POTASSIUM CHLORIDE 10 MEQ CAPSULE ER 20 MEQ PO (12:23)
--- NOTE | 2024-10-31 14:20 | PC.NURSE ---
End of Shift Note: Patient has done well today. Is tolerating clear liquids. We did discuss advancing to full liquids she thought maybe for dinner tonight. Did also discontinue her NG tube which she tolerated well. She has been up and ambulating independently in the hallways. Did also have a explosive bm by her report. Will continue to monitor until next shift takes over.
--- NOTE | 2024-10-31 15:00 | PM.GSPN ---
Subjective Subjective Date Seen: 10/31/24 Interval history: Patient is feeling better today. She denies abdominal pain. She passed gas and had ?stool blowout?. She tolerated some clears. Her NG was clamped overnight and was removed today. Exam Narrative: Exam Narrative: Abdomen is still distended/protuberant but soft to palpation and tympanic to percussion. Not tender to palpation. Const: Vital Signs, click to edit/add: Vital Signs - 24 hr 10/30/24 16:00 10/30/24 16:01 10/30/24 19:00 Temperature 97.8 F Pulse Rate 104 H Pulse Rate [Pulse Oximeter] 103 H 99 Respiratory Rate 18 18 Blood Pressure [Ri ght Arm] 158/107 H Pulse Oximetry 99 Oxygen Delivery Me thod Room Air 10/30/24 21:37 10/30/24 23:00 10/30/24 23:00 Temperature Pulse Rate 69 Pulse Rate [Pulse Oximeter] 69 Respiratory Rate 18 Blood Pressure [Ri ght Arm] 157/98 H Pulse Oximetry Oxygen Delivery Me thod 10/30/24 23:00 10/30/24 23:52 10/31/24 05:25 Temperature 97.4 F L 97.3 F L Pulse Rate Pulse Rate [Pulse Oximeter] 75 103 H Respiratory Rate 18 20 18 Blood Pressure [Ri ght Arm] 171/91 H 143/76 H Pulse Oximetry 99 94 93 Oxygen Delivery Me thod Room Air Room Air Room Air 10/31/24 07:00 10/31/24 07:00 10/31/24 07:00 Temperature 97.9 F Pulse Rate Pulse Rate [Pulse Oximeter] 82 82 Respiratory Rate 18 20 Blood Pressure [Ri ght Arm] 155/70 H Pulse Oximetry 94 94 Oxygen Delivery Me thod Room Air Room Air 10/31/24 07:00 10/31/24 11:00 Temperature 97.5 F L Pulse Rate 85 Pulse Rate [Pulse Oximeter] 78 Respiratory Rate 20 Blood Pressure [Ri ght Arm] 177/98 H Pulse Oximetry 97 Oxygen Delivery Me thod Room Air Progress Note:A&P Assessment and plan (1) Small bowel obstruction: Status: Acute Assessment and Plan: 89-year-old female admitted to the hospital small-bowel obstruction resolving with conservative treatment. I discussed with the patient that she can advance to full liquid diet tonight. Tomorrow she can have regular diet. Possibly discharge home tomorrow.
--- NOTE | 2024-10-31 18:26 | PC.NURSE ---
shift note: vss stable. pt up indept in lewis. pt passing flatus. pt tolerating full diet w/o nausea or bloating.
[2024-10-31] MEDS: lisinopriL 5 MG TABLET PO (20:47)
[2024-11-01 00:04] VITALS: PULSE 68
[2024-11-01 02:30] VITALS: BP 161/88; PULSE 84; RESP 20; TEMP 36.4; O2SAT 94
[2024-11-01] MEDS: LEVOTHYROXINE 75 MCG TABLET PO (06:15)
[2024-11-01 07:00] VITALS: BP 149/74; PULSE 72; RESP 16; RESP 18; TEMP 36.8; O2SAT 99
[2024-11-01 07:11] LABS: Chloride* 100 mmol/L (96-114)
[2024-11-01 07:12] LABS: Potassium* 3.5 mmol/L (3.6-5.1); Sodium* 130 mmol/L (135-149)
[2024-11-01 07:14] LABS: Creatinine* 0.5 mg/dL (0.5-1.5); Est. Creatinine Clearance* 32.79; Estimated Glomerular Filt Rate 91 ml/min
[2024-11-01 07:15] LABS: Anion Gap 4 mEq/L (7-15); Blood Urea Nitrogen* 9 mg/dL (7-30); Calcium* 8.9 mg/dL (8.4-10.6); Carbon Dioxide* 26 mmol/L (20-32); Glucose* 125 mg/dL (60-115)
[2024-11-01 07:34] VITALS: PULSE 91
--- NOTE | 2024-11-01 07:44 | PC.NURSE ---
Pt alert and oriented x3. Afebrile. Pt denies pain, N/V, SOB, and Chest pain. Pt is up ad liborio in room, voiding, passing gas, and tolerating a full liquid diet. Pt slept throughout most of night, night uneventful.
[2024-11-01] MEDS: METOPROLOL TARTRATE 50 MG TABLET PO (09:15)
[2024-11-01] MEDS: METOPROLOL TARTRATE 1 MG/ML inj 5 MG IVP (09:48)
[2024-11-01 11:00] VITALS: BP 157/90; PULSE 90; RESP 20; TEMP 36.8; O2SAT 99
--- NOTE | 2024-11-01 11:17 | P.DS_ITS ---
DS: Providers Provider Date Seen: 11/01/24 Date of admission: 10/28/24 00:06 Primary care physician: Akila Cerda MD Admitting Clinician: Jovany De La Vega MD Consults: 10/28/24 00:06 Consult to Nutrition [CONS] Routine Comment: Reason for consult:: Miscellaneous Comment: SBO, recurrent Attending Physician on discharge: Callie Sanchez MD Date of Discharge: 11/01/24 DS: Diagnosis Discharge Diagnosis (1) Small bowel obstruction: Status: Acute Problem details: - recurrent - NG placed 10/28/24, intermittent clamping with medications as of 10/30, started clear liquids 10/30 - NG removed 10/31 and patient advanced diet well, appropriate for d/c on 11/01 - General Surgery followed during stay (2) Tachycardia: Status: Acute Problem details: - metoprolol tartrate 5mg IV Q6H prn - intermittent sinus tachycardia when walking, improved with rest (presumably 2/2 mild dehydration and poor oral absorption of medications during SBO) - will f/u with PCP regarding HR and increase of oral Metoprolol dosing (3) Hypertension: Status: Acute Problem details: - held oral lisinopril and metoprolol on admission, restarted oral medications 10/30 - age appropriate control during stay (4) Hypokalemia: Status: Acute Problem details: - stable, continue to follow and replace as needed, d/c K of 3.5 (5) Hyponatremia: Status: Acute Problem details: - stable, mild, continue to follow, d/c Na of 130 (6) Hypothyroid: Status: Acute Problem details: - on Levothyroxine DS: Summary Hospital Course Hospital Course: Brandy was admitted to the hospital on 10/27 for recurrent SBO. NG placed upon admission, clamped with initiation of clear liquids and oral medications on 10/30/24. + flatus and BMs noted. NG removed with continued advancement of diet on 10/31/24. Dr. Cunningham of General Surgery also followed during stay, patient did not require surgical intervention. Notable findings during stay (hypokalemia, hyponatremia, tachycardia) with details, above. Patient tolerating po intake and medically appropriate for discharge on 11/01/2024. Status at Discharge Functional status at discharge: independent ambulation Time Spent with Patient Time attestation: Total time spent providing and/or coordinating discharge services: Time spent: Less than 30 minutes Exam Narrative: Exam Narrative: GEN: Alert and oriented, nontoxic HEENT: EOMIs bilaterally, no scleral icterus CV: RRR (rate in the 90s during my exam), no concerning murmurs R: LCTA bilaterally Ab: Mild distention, soft, + bowel sounds Ext: wwp, no concerning edema Skin: No concerning skin lesions or rashes on exposed skin Neuro: Nonfocal Psych: Appropriate Const: Vital Signs, click to edit/add: Vital Signs - 24 hr 10/31/24 15:00 10/31/24 15:21 10/31/24 15:28 Temperature 97.8 F Pulse Rate 77 Pulse Rate [Pulse Oximeter] Respiratory Rate 18 20 Blood Pressure [Le ft Arm] Blood Pressure [Ri ght Arm] 184/100 H Pulse Oximetry 96 97 [facility] 10/31/24 19:24 10/31/24 23:00 11/01/24 00:04 Temperature 98.0 F Pulse Rate 68 Pulse Rate [Pulse Oximeter] 91 68 Respiratory Rate 18 16 Blood Pressure [Le ft Arm] 164/86 H 151/87 H Blood Pressure [Ri ght Arm] Pulse Oximetry 96 96 [facility] Room Air 11/01/24 02:30 11/01/24 02:30 11/01/24 07:00 Temperature 97.5 F L Pulse Rate Pulse Rate [Pulse Oximeter] 84 Respiratory Rate 20 20 18 Blood Pressure [Le ft Arm] Blood Pressure [Ri ght Arm] 161/88 H Pulse Oximetry 94 94 99 [facility] Room Air Room Air 11/01/24 07:00 Temperature 98.2 F Pulse Rate Pulse Rate [Pulse Oximeter] 72 Respiratory Rate 16 Blood Pressure [Le ft Arm] 149/74 H Blood Pressure [Ri ght Arm] Pulse Oximetry 99 Oxygen Delivery Pa thod Room Air DS: Data Data Completed and Pending Completed studies during hospitalization: Procedures Drainage of Stomach with Drainage Device, Via Natural or Artificial Opening (12/18/23) Labs on day of discharge: Labs from last 24 hours 11/01/24 06:08 Sodium 130 L Potassium 3.5 L Chloride 100 Carbon Dioxide 26 Anion Gap 4 L BUN 9 Creatinine 0.5 Estimated Creat Clear 32.79 Estimated GFR 91 Glucose 125 H Calcium 8.9 Discharge Plan Discharge Disposition: Home, Self-Care Date of Admission: 10/28/24 00:06 Attending Provider on Discharge: aCllie Sanchez Primary Care Provider: Akila Cerda Condition: Improved Anticipated Discharge Date/Time: 11/01/24 09:39 Discharge Medications: Continued omega 8-cim-ixu-fish oil [Fish Oil] 60-90-500 mg capsule 1 cap PO BID naproxen 250 mg tablet 250 mg PO BID PRN calcium carbonate [Calcium 500] 500 mg calcium (1,250 mg) tablet,chewable 500 mg PO DAILY levothyroxine 75 mcg tablet 75 mcg PO DAILY metoprolol tartrate 50 mg tablet 50 mg PO BID lisinopril 5 mg tablet 5 mg PO HS cetirizine 10 mg tablet 10 mg PO DAILY PRN multivitamin Tablet 1 tab PO DAILY melatonin 5 mg capsule 5 mg PO HS PRN acetaminophen 500 mg capsule 500 - 1,000 mg PO Q6H MDD 3000mg PRN Discharge Orders: Discharge Order (Routine); Ordered 11/01/24 Ordered By: Callie Sanchez Patient Education: Low Fiber Diet (DC), Bowel Obstruction (DC) Additional Instructions: Check your pulse 1-2 times/day and bring numbers to f/u appointment with Dr. Cerda (may need to increase Metoprolol dosing). Low fiber diet, advance as tolerated. Activity Level: No strenuous activity Discharge Diet: Low Fiber Diet Detail: low fiber for 5-7 days, advance as tolerated Follow Up Appointments: Akila Cerda MD [Primary Care Provider] - (please make an appt for Brandy with Dr. Cerda at [facility] in 5-7 days for hospital f/u) Johnny Valencia MD [Referring] - 11/08/24 11:15 am ([facility] for follow-up. Patients primary provider wasn't available.) Forms: [employer] Info Instructions
--- NOTE | 2024-11-01 15:38 | PC.NURSE ---
shift note: dc'd IV intact. BS active x4. pt tolerating regular diet. Abd soft/distended. pt denies pain. Reviewed dc instructions and copies sent with pt. Belongings reviewed and sent with pt at ar.
== END 2024-11-01 13:30 | disposition home or self-care (01) | DRG 389 ==
LOC: ED 23:28 → MEDSURG 23:40
PROVIDERS: Family Medicine; Admitting Provider Internal Medicine; Emergency Provider Family Medicine; PCP Family Medicine; Visit Provider Internal Medicine
DX: K56.690 Other partial intestinal obstruction (principal); E87.1 Hypo-osmolality and hyponatremia; R10.84 Generalized abdominal pain; E87.6 Hypokalemia; E86.0 Dehydration; R00.0 Tachycardia, unspecified; I48.91 Unspecified atrial fibrillation; I10 Essential (primary) hypertension; I44.7 Left bundle-branch block, unspecified; K21.9 Gastro-esophageal reflux disease without esophagitis; E03.9 Hypothyroidism, unspecified; Z96.651 Presence of right artificial knee joint; Z96.652 Presence of left artificial knee joint; Z96.612 Presence of left artificial shoulder joint; Z96.611 Presence of right artificial shoulder joint; Z87.891 Personal history of nicotine dependence
CPT/HCPCS: 36415; 71045; 74018; 74176; 80048; 80053; 80061; 82803; 83605; 83690; 83735; 84100; 84484; 85025; 86140; 93005; 99284; 99285; A9270; J2270; J2405; J7030

== ENCOUNTER 2024-11-06 18:48 | Inpatient (IN) | payer MEDICARE, BC, SELFPAY ==
[2024-11-06 18:53] VITALS: BP 135/80; PULSE 98; RESP 20; TEMP 36; O2SAT 96; BMI 22.1
--- NOTE | 2024-11-06 19:12 | ED_ITS ---
HPI - Abdominal Pain General Time Seen by Provider: 19:12 Date Seen: 11/06/24 Chief Complaint: Abdominal Pain Stated Complaint: nausea, vomiting, poss bowel obstr Time Seen by Provider: 11/06/24 19:01 Source: patient, family, RN notes reviewed and old records reviewed Mode of arrival: ambulatory Limitations: no limitations History of Present Illness HPI narrative: 89-year-old female who presents today with vomiting and abdominal distension, history of small-bowel obstruction. Symptoms started this afternoon after recent admission for bowel obstruction. Patient has been having small stools although nothing since this morning, also notes vomiting, abdominal distension. No fever chills, no urinary symptoms. Related Data Home Medications ?Medication ?Instructions ?Recorded ?Confirmed cetirizine 10 mg tablet 10 mg PO DAILY PRN 08/05/22 11/06/24 levothyroxine 75 mcg tablet 75 mcg PO DAILY 08/05/22 11/06/24 lisinopril 5 mg tablet 5 mg PO HS 08/05/22 11/06/24 melatonin 5 mg capsule 5 mg PO HS PRN 08/05/22 11/06/24 metoprolol tartrate 50 mg tablet 50 mg PO BID 08/05/22 11/06/24 multivitamin 1 tab PO DAILY 08/05/22 11/06/24 naproxen 250 mg tablet 250 mg PO BID PRN 04/12/23 11/06/24 omega 8-ekt-unf-fish oil 60 mg-90 1 cap PO BID 04/12/23 11/06/24 mg-500 mg capsule (Fish Oil) calcium carbonate (Calcium 500) 500 mg PO DAILY 09/23/23 11/06/24 acetaminophen 500 mg capsule 500 - 1,000 mg PO Q6H PRN 10/28/24 11/06/24 Allergies Allergy/AdvReac Type Severity Reaction Status Date / Time cat dander Allergy Verified 11/06/24 18:56 perfume Allergy Verified 11/06/24 18:56 [facility] Medical History (Updated 11/06/24 @ 20:25 by Ramo Davenport MD) Partial hamstring tear ?S76.319A - Strain of muscle, fascia and tendon of the posterior muscle group at thigh level, unspecified thigh, initial encounter (ICD-10) Right hip impingement syndrome ?M25.851 - Other specified joint disorders, right hip (ICD-10) Hypertension ?I10 - Essential (primary) hypertension (ICD-10) Left bundle branch block ?I44.7 - Left bundle-branch block, unspecified (ICD-10) Small bowel obstruction ?K56.609 - Unspecified intestinal obstruction, unspecified as to partial versus complete obstruction (ICD-10) Postoperative ileus ?K91.89 - Other postprocedural complications and disorders of digestive system (ICD-10) ?K56.7 - Ileus, unspecified (ICD-10) Postoperative hypoxia ?R09.02 - Hypoxemia (ICD-10) ?Z98.890 - Other specified postprocedural states (ICD-10) Anemia following surgery ?D64.9 - Anemia, unspecified (ICD-10) Strain of right hip ?S76.011A - Strain of muscle, fascia and tendon of right hip, initial encounter (ICD-10) Sigmoid diverticulosis ?K57.30 - Diverticulosis of large intestine without perforation or abscess without bleeding (ICD-10) Arthritis ?M19.90 - Unspecified osteoarthritis, unspecified site (ICD-10) GERD (gastroesophageal reflux disease) ?K21.9 - Gastro-esophageal reflux disease without esophagitis (ICD-10) Atrial fibrillation ?I48.91 - Unspecified atrial fibrillation (ICD-10) Hypothyroid ?E03.9 - Hypothyroidism, unspecified (ICD-10) Surgical History S/P laparotomy with lysis of adhesions ?Z98.890 - Other specified postprocedural states (ICD-10) 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) ?Z98.890 - Other specified postprocedural states (ICD-10) History of ankle surgery (12/04/92) ?Z98.890 - Other specified postprocedural states (ICD-10) 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 She lives in [place] with her . She does not smoke. She drinks 1 glass of wine a day. What is your current living situation?: I presently have a place to live Problems where you live: no known problems Problems where you live details: n/a In the past 12 months, utilities in danger of being shut off: no In the past 12 mos, have been you worried that your food would run out before you had money to buy more?: never true In the past 12 mos, the food you bought just didn't last and you didn't have money to buy more?: never true Highest level of school completed/degree received: Associate degree: occupational, technical, vocational program Smoking Status: Former smoker What tobacco products do you use: cigarettes Smoking quit date/years: >15 years ago Do you use any of these nicotine containing products: None Second hand tobacco smoke exposure: No How often do you have a drink containing alcohol: 4 or more times a week Alcohol type: wine Alcohol type details: daily glass of wine with dinner How many standard drinks containing alcohol do you have on a typical day: 1 or 2 How often do you have six or more drinks on one occasion: Never AUDIT-C Alcohol total score: 4 Non-prescribed substance use: denies use Caffeine: Yes How often does anyone, including family, friends and others, physically hurt you : never How often does anyone, including family, friends and others, insult or talk down to you: never How often does anyone, including family, friends and others, threaten you with harm: never How often does anyone, including family, friends and others, scream or curse at you: never service: No Exam Narrative: Exam Narrative: General: Well-developed and well-nourished, no acute distress Head: Atraumatic and normocephalic Eyes: Pupils are equal reactive, extraocular motions intact, conjunctiva clear ENT: External nose and ears are normal, posterior pharynx without erythema or exudate Neck: No midline cervical tenderness, full spontaneous range of motion the neck, trachea midline, no adenopathy Heart: Regular rate and rhythm no murmurs or thrills Lungs: Clear to auscultation bilaterally without wheezes or crackles Abdomen: Distended, nontender, high-pitched bowel sounds Musculoskeletal: No tenderness, deformity, or edema Neurologic: Awake, alert, and oriented x3, no gross focal neurologic deficits, cranial nerves intact as tested Psych: Mood and affect are appropriate Skin: No rashes Const: Vital Signs, click to edit/add: Vital Signs - 24 hr 11/06/24 18:53 Temperature 96.8 F L Pulse Rate [Pulse Oximeter] 98 Respiratory Rate 20 Blood Pressure [Ri ght Upper Arm] 135/80 Pulse Oximetry 96 Oxygen Delivery Me thod Room Air Course Course ED Course: Reviewed most recent hospital admission from October 28 to when patient was admitted with small-bowel obstruction treated with NG tube which was removed October 31. Patient presents today with vomiting, abdominal distension. She has a emesis bag with large volume of brown but not bloody emesis, abdomen is distended with high-pitched bowel sounds. Symptoms are most consistent with recurrent small-bowel obstruction. Labs and CT scan ordered along with Zofran, suspect patient will need NG tube and admission Reevaluation(s) Time of Reevaluation #1: 19:34 Reevaluation #1: CT scan independently interpreted by me with dilation of the stomach and evidence for small bowel obstruction with transition point in the right lower quadrant. NG tube will be placed and plan for admission. Time of Reevaluation #2: 20:24 Reevaluation #2: Lives independently interpreted by me with mild hypochloremia, elevated blood glucose and mild hypercalcemia as well. Time of Reevaluation #3: 20:43 Reevaluation #3: Reviewed radiology interpretation of CT scan which agrees my initial interpreta tion Vital Signs Vital signs: Initial Vital Signs Temperature 96.8 F L 11/06/24 18:53 Temperature Source Temporal Artery Scan 11/06/24 18:53 Pulse Rate 98 11/06/24 18:53 Pulse Rhythm Regular 11/06/24 18:53 Pulse Strength 3+ Normal 11/06/24 18:53 Respiratory Rate 20 11/06/24 18:53 Blood Pressure 135/80 11/06/24 18:53 Blood Pressure Mean 98 11/06/24 18:53 Blood Pressure Position Sitting 11/06/24 18:53 Pulse Oximetry 96 11/06/24 18:53 Oxygen Delivery Method Room Air 11/06/24 18:53 Vital Signs Temperature 96.8 F L 11/06/24 18:53 Pulse Rate 98 11/06/24 18:53 Respiratory Rate 20 11/06/24 18:53 Blood Pressure 135/80 11/06/24 18:53 Pulse Oximetry 96 11/06/24 18:53 Oxygen Delivery Method Room Air 11/06/24 18:53 Temperature 96.8 F L 11/06/24 18:53 Pulse Rate 98 11/06/24 18:53 Respiratory Rate 20 11/06/24 18:53 Blood Pressure 135/80 11/06/24 18:53 Pulse Oximetry 96 11/06/24 18:53 Oxygen Delivery Method Room Air 11/06/24 18:53 Medications Administered Medications: Discontinued Medications Generic Name Dose Route Start Last Admin Trade Name Panfiloq PRN Reason Stop Dose Admin Ondansetron HCl 4 mg 11/06/24 19:22 11/06/24 20:10 Ondansetron 2 Mg/Ml Inj IVP 11/06/24 19:23 4 mg ONCE ONE Administration MDM - Abdominal Pain Lab Data Labs: Lab Results 11/06/24 Range/Units 19:55 Sodium 133 L (135-149) mmol/L Potassium 4.7 (3.6-5.1) mmol/L Chloride 89 L (96-114) mmol/L Carbon Dioxide 29 (20-32) mmol/L Anion Gap 15 (7-15) mEq/L BUN 24 (7-30) mg/dL Creatinine 0.9 (0.5-1.5) mg/dL Estimated Creat Clear 32.79 Estimated GFR 62 ml/min Glucose 183 H (60-115) mg/dL Calcium 11.1 H (8.4-10.6) mg/dL Magnesium 1.9 (1.5-2.6) mg/dL Discharge Plan Discharge Clinical Impression: Small bowel obstruction Patient Disposition: Admitted As Observation
--- NOTE | 2024-11-06 19:20 | CRLHL7_ITS ---
For Patients: As a result of the Century Cures Act, medical imaging exams and procedure reports are released immediately into your electronic medical record. You may view this report before your referring provider. If you have questions, please contact your health care provider. INDICATION: Vomiting, concern for recurrent small bowel obstruction. TECHNIQUE: CT of the abdomen and pelvis without IV contrast. Coronal and sagittal reconstructions. COMPARISON: CT of the abdomen and pelvis 10/27/2024. FINDINGS: Lower chest: Unremarkable. Liver: Stable small hypodense lesion. Gallbladder and bile ducts: Possible tiny gallstone. No signs of gallbladder inflammation. No biliary dilatation. Spleen: Unremarkable. Pancreas: Unremarkable. Adrenal glands: Unremarkable. Kidneys, Ureters, and Bladder: No hydronephrosis or ureteral dilation. No obstructing urinary calculi identified. No significant bladder wall thickening. Reproductive organs: Unremarkable noncontrast appearance. GI tract/Peritoneum: Small hiatal hernia versus distal esophageal wall thickening. The previously seen left lower quadrant small bowel anastomosis is now located in the right lower quadrant. There are multiple dilated fluid-filled small bowel loops with transition point in the right lower quadrant near the anastomosis. Mild associated mesenteric edema. There is a mild amount of stool in the cecum and distal sigmoid colon. The remainder of the colon is decompressed. Extensive colonic diverticulosis without evidence of diverticulitis. Negative appendix. No intraperitoneal free air or fluid. Vasculature: Abdominal aorta is normal in caliber. Aortoiliac vascular calcifications. Lymph nodes: No lymphadenopathy. Abdominal Wall: Unremarkable. Bones: Degenerative changes of the spine. Chronic compression fractures of T10, T11, and L1. IMPRESSION: Small bowel obstruction with transition point in the right lower quadrant near the anastomosis. Surgical consult is recommended. Please note that all CT scans at this facility use dose modulation, iterative reconstruction, and/or weight-based dosing when appropriate to reduce radiation dose to as low as reasonably achievable. Dictated by Camille Canales MD @ 11/06/2024 8:41:38 PM (Electronically Signed)
--- NOTE | 2024-11-06 19:34 | CRLHL7_ITS ---
For Patients: As a result of the Cures Act, medical imaging exams and procedure reports are released immediately into your electronic medical record. You may view this report before your referring provider. If you have questions, please contact your health care provider. INDICATION: NG tube placement TECHNIQUE: Abdominal radiograph 1 view COMPARISON: None FINDINGS: Bowel: Gas-filled dilated small bowel loops are seen in the mid abdomen suggestive of small-bowel obstruction. NG tube is present with the tip in the left flank, likely within a dilated stomach. Soft tissue: No evidence of pneumoperitoneum present. No suspicious calcifications noted. Bone: Unremarkable for age. IMPRESSION: 1. NG tube is present with the tip in the left flank, likely within a dilated stomach. Dictated by Jose Guadalupe Fontanez MD @ 11/06/2024 9:25:31 PM Dictated by: Jose Guadalupe Fontanez MD @ 11/06/2024 21:25:37 (Electronically Signed)
[2024-11-06] MEDS: ONDANSETRON 2 MG/ML inj 4 MG IVP ×2 (20:10→23:30)
[2024-11-06 20:12] LABS: Chloride* 89 mmol/L (96-114); Potassium* 4.7 mmol/L (3.6-5.1)
[2024-11-06 20:15] LABS: Blood Urea Nitrogen* 24 mg/dL (7-30); Calcium* 11.1 mg/dL (8.4-10.6); Carbon Dioxide* 29 mmol/L (20-32); Creatinine* 0.9 mg/dL (0.5-1.5); Est. Creatinine Clearance* 32.79; Estimated Glomerular Filt Rate 62 ml/min; Glucose* 183 mg/dL (60-115); Magnesium* 1.9 mg/dL (1.5-2.6)
[2024-11-06 20:33] LABS: Anion Gap 15 mEq/L (7-15); Sodium* 133 mmol/L (135-149)
--- NOTE | 2024-11-06 20:49 | CRLHL7_ITS ---
For Patients: As a result of the Century Cures Act, medical imaging exams and procedure reports are released immediately into your electronic medical record. You may view this report before your referring provider. If you have questions, please contact your health care provider. INDICATION: Abnormal NGT on x-ray, concern for malposition or perforation. TECHNIQUE: CT of the abdomen and pelvis without IV contrast. Coronal and sagittal reconstructions. COMPARISON: Earlier same day abdominal radiograph and CT of the abdomen and pelvis. CT of the abdomen and pelvis 10/27/2024. FINDINGS: Lower chest: Unremarkable. Liver: Stable small hypodense lesion. Gallbladder and bile ducts: Possible tiny gallstone. No signs of gallbladder inflammation. No biliary dilatation. Spleen: Unremarkable. Pancreas: Unremarkable. Adrenal glands: Unremarkable. Kidneys, Ureters, and Bladder: No hydronephrosis or ureteral dilation. No obstructing urinary calculi identified. No significant bladder wall thickening. Reproductive organs: Unremarkable noncontrast appearance. GI tract/Peritoneum: Mildly patulous fluid-filled distal esophagus. Distended stomach with air-fluid level. Interval placement of an enteric tube with tip in the distal gastric body. Small bowel anastomosis in the right lower quadrant. Again seen are multiple dilated fluid-filled small bowel loops with transition point in the midline lower abdomen near the anastomosis. Mild associated mesenteric edema. Extensive colonic diverticulosis without evidence of diverticulitis. Negative appendix. No intraperitoneal free air or fluid. Vasculature: Abdominal aorta is normal in caliber. Aortoiliac vascular calcifications. Lymph nodes: No lymphadenopathy. Abdominal Wall: Unremarkable. Bones: Degenerative changes of the spine. Chronic compression fractures of T10, T11, and L1. IMPRESSION: 1. Stable findings of small bowel obstruction with transition point in the midline lower abdomen near the anastomosis. Surgical consult remains indicated. 2. Enteric tube with tip in the distal gastric body. No sign of perforation. Distended fluid-filled stomach and distal esophagus. Please note that all CT scans at this facility use dose modulation, iterative reconstruction, and/or weight-based dosing when appropriate to reduce radiation dose to as low as reasonably achievable. Dictated by Camille Canales MD @ 11/06/2024 9:56:36 PM (Electronically Signed)
--- NOTE | 2024-11-06 21:24 | ED.NURSE ---
Pt report given to govind HARO. Pt to room 255.
[2024-11-06 22:00] VITALS: BP 150/86; PULSE 116; RESP 20; TEMP 36.8; O2SAT 91; BMI 21.7
--- NOTE | 2024-11-06 22:26 | P.IMHP_ITS ---
Hospitalist- H&P: HPI History of Present Illness Date Seen: 11/07/24 Chief complaint: nausea, vomiting, poss bowel obstr Narrative: Areli Lee is a 89 year old female past medical history significant for hypertension, atrial fibrillation, hypothyroidism, GERD, LBBB, recent SBO is admitted to the medical floor from the ED for recurrent small-bowel obstruction management. Patient reports return of abdominal pain this afternoon. Wonders if she ate too much fiber this morning. Began vomiting this afternoon. Has been having small bowel movements, last was this morning. No longer passing gas however. Denies recent fevers. Denies headache or dizziness. Denies chest pain or shortness of breath. Patient is a nonsmoker. Requests to be a full code. PCP is Dr. Rimma Cerda. In the ED, CT shows small-bowel obstruction with transition point in the midline lower abdomen near the anastomosis. NGT was placed. General surgery to be consulted in the morning. Was most recently admitted to this hospital 10/27-11/01 for small-bowel obstruction which resolved with conservative management. Review of Systems Narrative: REVIEW OF SYSTEMS: Complete review of systems performed and negative unless otherwise stated in HPI or below. [facility] Medical History Partial hamstring tear ?S76.319A - Strain of muscle, fascia and tendon of the posterior muscle group at thigh level, unspecified thigh, initial encounter (ICD-10) Right hip impingement syndrome ?M25.851 - Other specified joint disorders, right hip (ICD-10) Hypertension ?I10 - Essential (primary) hypertension (ICD-10) Left bundle branch block ?I44.7 - Left bundle-branch block, unspecified (ICD-10) Small bowel obstruction ?K56.609 - Unspecified intestinal obstruction, unspecified as to partial versus complete obstruction (ICD-10) Postoperative ileus ?K91.89 - Other postprocedural complications and disorders of digestive system (ICD-10) ?K56.7 - Ileus, unspecified (ICD-10) Postoperative hypoxia ?R09.02 - Hypoxemia (ICD-10) ?Z98.890 - Other specified postprocedural states (ICD-10) Anemia following surgery ?D64.9 - Anemia, unspecified (ICD-10) Strain of right hip ?S76.011A - Strain of muscle, fascia and tendon of right hip, initial encounter (ICD-10) Sigmoid diverticulosis ?K57.30 - Diverticulosis of large intestine without perforation or abscess without bleeding (ICD-10) Arthritis ?M19.90 - Unspecified osteoarthritis, unspecified site (ICD-10) GERD (gastroesophageal reflux disease) ?K21.9 - Gastro-esophageal reflux disease without esophagitis (ICD-10) Atrial fibrillation ?I48.91 - Unspecified atrial fibrillation (ICD-10) Hypothyroid ?E03.9 - Hypothyroidism, unspecified (ICD-10) Surgical History S/P laparotomy with lysis of adhesions ?Z98.890 - Other specified postprocedural states (ICD-10) 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) ?Z98.890 - Other specified postprocedural states (ICD-10) History of ankle surgery (12/04/92) ?Z98.890 - Other specified postprocedural states (ICD-10) 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 She lives in [place] with her . She does not smoke. She drinks 1 glass of wine a day. What is your current living situation?: I presently have a place to live Problems where you live: no known problems Problems where you live details: n/a In the past 12 months, utilities in danger of being shut off: no In the past 12 mos, have been you worried that your food would run out before you had money to buy more?: never true In the past 12 mos, the food you bought just didn't last and you didn't have money to buy more?: never true Highest level of school completed/degree received: Associate degree: occupational, technical, vocational program Smoking Status: Former smoker What tobacco products do you use: cigarettes Smoking quit date/years: >15 years ago Do you use any of these nicotine containing products: None Second hand tobacco smoke exposure: No How often do you have a drink containing alcohol: 4 or more times a week Alcohol type: wine Alcohol type details: daily glass of wine with dinner How many standard drinks containing alcohol do you have on a typical day: 1 or 2 How often do you have six or more drinks on one occasion: Never AUDIT-C Alcohol total score: 4 Non-prescribed substance use: denies use Caffeine: Yes How often does anyone, including family, friends and others, physically hurt you : never How often does anyone, including family, friends and others, insult or talk down to you: never How often does anyone, including family, friends and others, threaten you with harm: never How often does anyone, including family, friends and others, scream or curse at you: never service: No Meds Home Medications and Allergies Home Medications ?Medication ?Instructions ?Recorded ?Confirmed ?Type cetirizine 10 mg tablet 10 mg PO DAILY PRN 08/05/22 11/06/24 History levothyroxine 75 mcg tablet 75 mcg PO DAILY 08/05/22 11/06/24 History lisinopril 5 mg tablet 5 mg PO HS 08/05/22 11/06/24 History melatonin 5 mg capsule 5 mg PO HS PRN 08/05/22 11/06/24 History metoprolol tartrate 50 mg tablet 50 mg PO BID 08/05/22 11/06/24 History multivitamin 1 tab PO DAILY 08/05/22 11/06/24 History naproxen 250 mg tablet 250 mg PO BID PRN 04/12/23 11/06/24 History omega 2-xoo-lsz-fish oil 60 mg-90 1 cap PO BID 04/12/23 11/06/24 History mg-500 mg capsule (Fish Oil) calcium carbonate (Calcium 500) 500 mg PO DAILY 09/23/23 11/06/24 History acetaminophen 500 mg capsule 500 - 1,000 mg PO Q6H PRN 10/28/24 11/06/24 History Allergies Allergy/AdvReac Type Severity Reaction Status Date / Time cat dander Allergy Verified 11/06/24 18:56 perfume Allergy Verified 11/06/24 18:56 Exam Narrative: Exam Narrative: PHYSICAL EXAM General: Pleasant, conversant, NAD HEENT: Normocephalic, atraumatic, sclera white, EOMI, oral mucosa moist Cardiovascular: RRR, S1S2. No pitting edema Pulmonary: CTA bilaterally without rhonchi, rales, expiratory wheezes. No dyspnea Abdominal: Soft, distended, mild generalized tenderness, NGT in place with dark output. Bowel sounds absent Neurological: Alert, answering questions appropriately, cranial nerves intact, no focal findings Extremities: No gross joint deformity or swelling. AROMI. Neurovascularly intact Skin: Warm, dry. Const: Vital Signs, click to edit/add: Vital Signs - 24 hr 11/06/24 18:53 Temperature 96.8 F L Pulse Rate [Pulse Oximeter] 98 Respiratory Rate 20 Blood Pressure [Ri ght Upper Arm] 135/80 Pulse Oximetry 96 Oxygen Delivery Me thod Room Air Hospitalist - H&P: Result Labs Labs: [facility] 11/06/24 19:55 Sodium 133 L Potassium 4.7 Chloride 89 L Carbon Dioxide 29 BUN 24 Creatinine 0.9 Glucose 183 H Calcium 11.[address] scan - abdomen: Attestation: I have reviewed the pertinent imaging results. Radiologist's impression: COMPARISON: Earlier same day abdominal radiograph and CT of the abdomen and pelvis. CT of the abdomen and pelvis 10/27/2024. FINDINGS: Lower chest: Unremarkable. Liver: Stable small hypodense lesion. Gallbladder and bile ducts: Possible tiny gallstone. No signs of gallbladder inflammation. No biliary dilatation. Spleen: Unremarkable. Pancreas: Unremarkable. Adrenal glands: Unremarkable. Kidneys, Ureters, and Bladder: No hydronephrosis or ureteral dilation. No obstructing urinary calculi identified. No significant bladder wall thickening. Reproductive organs: Unremarkable noncontrast appearance. GI tract/Peritoneum: Mildly patulous fluid-filled distal esophagus. Distended stomach with air-fluid level. Interval placement of an enteric tube with tip in the distal gastric body. Small bowel anastomosis in the right lower quadrant. Again seen are multiple dilated fluid-filled small bowel loops with transition point in the midline lower abdomen near the anastomosis. Mild associated mesenteric edema. Extensive colonic diverticulosis without evidence of diverticulitis. Negative appendix. No intraperitoneal free air or fluid. Vasculature: Abdominal aorta is normal in caliber. Aortoiliac vascular calcifications. Lymph nodes: No lymphadenopathy. Abdominal Wall: Unremarkable. Bones: Degenerative changes of the spine. Chronic compression fractures of T10, T11, and L1. IMPRESSION: 1. Stable findings of small bowel obstruction with transition point in the midline lower abdomen near the anastomosis. Surgical consult remains indicated. 2. Enteric tube with tip in the distal gastric body. No sign of perforation. Distended fluid-filled stomach and distal esophagus. Abdominal x-ray: Attestation: I have reviewed the pertinent imaging results. Radiologist's impression: Bowel: Gas-filled dilated small bowel loops are seen in the mid abdomen suggestive of small-bowel obstruction. NG tube is present with the tip in the left flank, likely within a dilated stomach. Soft tissue: No evidence of pneumoperitoneum present. No suspicious calcifications noted. Bone: Unremarkable for age. IMPRESSION: 1. NG tube is present with the tip in the left flank, likely within a dilated stomach. Assessment and Plan Assessment and plan (1) Small bowel obstruction: Problem comment: - recurrent -NG placed 11/06/24 in ED -NPO, IVF -pain and nausea management as needed -encourage ambulation -general surgery consult for morning -WBC ordered on admission Status: Acute (2) Hypertension: Problem comment: -continue lisinopril and metoprolol Status: Acute (3) Hypothyroid: Problem comment: - on Levothyroxine Status: Acute (4) Hyponatremia: Problem comment: -sodium 133, stable, within baseline Status: Acute Total Time Spent Total Time Spent: Total time spent caring for the patient today was 75 minutes. This includes ti me spent for the visit reviewing the chart, time spent during the visit, time spent after the visit and documentation and planning in coordination of care.
[2024-11-06 22:48] VITALS: PULSE 75; RESP 20; O2SAT 91
[2024-11-06] MEDS: lisinopriL 5 MG TABLET PO (23:22)
[2024-11-06] MEDS: METOPROLOL TARTRATE 50 MG TABLET PO (23:23)
[2024-11-06 23:27] LABS: Albumin* 4.6 g/dL (3.3-5.0)
[2024-11-06] MEDS: 0.9 % SODIUM CHLORIDE 1000 ml 1,000 ML 125 ML IV (23:27)
[2024-11-06 23:30] LABS: Alanine Aminotransferase* 31 U/L (4-35); Alkaline Phosphatase* 97 U/L (40-150); Aspartate Amino Transferase* 60 U/L (12-35); Bilirubin Direct* 0.6 mg/dL (0.0-0.5); Lipase* 93 U/L (23-300); Total Protein* 8.8 g/dL (6.0-8.3)
[2024-11-07] VITALS (11 sets, daily range): BP systolic 137–169; BP diastolic 60–82; PULSE 68–101; RESP 16–18; TEMP 36.4–36.8; O2SAT 91–97
--- NOTE | 2024-11-07 00:15 | PC.NURSE ---
Shift summary: Pt arrived from the ER at 2144. She is A&O, afebrile and VSS with exception to tachycardia. She has h/o A. Fib and reports she has not had her beta reyes yet today. TELE applied showing sinus tachycardia. PIV in right hand infusing NaCl @ 125 mL/hr for IV resuscitation as she'll be NPO. NG tube at 64 cm in right nare. pH tested at 5.0. Hooked up to LIS. She denies having pain but positive for nausea; IV Zofran given @ 2330. Pt is up ad liborio in her room with a steady gait, denies dizziness. Abdomen is soft and distended. Bowel sounds absent on right side and hypoactive on left side. Reports her last BM was this morning. Patient care forwarded on to TAHIR Morales.
[2024-11-07] MEDS: LEVOTHYROXINE 75 MCG TABLET PO (06:43)
[2024-11-07 07:18] LABS: Chloride* 99 mmol/L (96-114); Sodium* 136 mmol/L (135-149)
[2024-11-07 07:19] LABS: Potassium* 4.4 mmol/L (3.6-5.1)
[2024-11-07 07:21] LABS: Creatinine* 0.8 mg/dL (0.5-1.5); Est. Creatinine Clearance* 32.79; Estimated Glomerular Filt Rate 71 ml/min
[2024-11-07 07:22] LABS: Anion Gap 8 mEq/L (7-15); Blood Urea Nitrogen* 24 mg/dL (7-30); Calcium* 9.2 mg/dL (8.4-10.6); Carbon Dioxide* 29 mmol/L (20-32); Glucose* 105 mg/dL (60-115); Magnesium* 1.9 mg/dL (1.5-2.6)
[2024-11-07 07:24] LABS: Mean Corpuscular HGB Conc 33 gm/dL (32-36); Mean Corpuscular Hemoglobin 30 pg (26-34); Mean Corpuscular Volume 90 fL (80-100); Platelet Count* 310 K/uL (140-440); Red Blood Count 3.68 m/uL (4.00-5.20); White Blood Count* 16.13 K/uL (4.50-11.00)
[2024-11-07 07:35] LABS: Slide Review Reflex No
[2024-11-07] MEDS: PANTOPRAZOLE SODIUM 40 MG INJ IVP (08:42)
[2024-11-07] MEDS: 0.9 % SODIUM CHLORIDE 1000 ml 1,000 ML 125 ML IV ×2 (08:42→17:28)
[2024-11-07] MEDS: METOPROLOL TARTRATE 50 MG TABLET PO ×2 (08:42→21:35)
--- NOTE | 2024-11-07 10:34 | PM.IMPN1 ---
Progress Note: A&P Assessment and plan (1) Small bowel obstruction: Problem details: -recurrent, 5th occurrence since 2020, requiring 2 previous surgeries -NG placed 11/06/24 in ED -NPO, IVF -pain and nausea management as needed -encourage ambulation -seen with General surgery, Dr. Campbell, 11/07 - plan for low intermittent suction today and clamping trial again this evening -total bili 1.0 direct bili, 0.6 AST 60, ALT 31, lipase 93, magnesium 1.9 - replacing with 2 g IV Status: Acute (2) Leukocytosis: Problem details: -admission WBC was not collected. WBC from 11/07 is 16.13. More than likely reactionary. Remains afebrile, clinically improving. Will recheck this evening. Defer antibiotics at this time, discussed with General surgery, in agreement Status: Acute (3) Hypertension: Problem details: -continue lisinopril and metoprolol Status: Acute (4) Hypothyroid: Problem details: -continue Levothyroxine Status: Acute (5) Hyponatremia: Problem details: -sodium 133, stable, within baseline. 136 following NS hydration. Status: Acute Time Spent With Patient Total time spent: Total time spent caring for the patient today was 45 minutes. This includes time spent for the visit reviewing the chart, time spent during the visit, time spent after the visit and documentation and planning in coordination of care. Subjective Date Seen: 11/07/24 Interval history: Patient is seen with daughter at bedside. Has just finished her 2nd walk of the morning. Reports feeling much better. Has been passing gas. No further nausea or vomiting. NGT in place, currently clamped. Remains afebrile. Exam Narrative: Exam Narrative: PHYSICAL EXAM General: Pleasant, conversant, NAD Cardiovascular: RRR, S1S2. No pitting edema Pulmonary: CTA bilaterally without rhonchi, rales, expiratory wheezes. No dyspnea Abdominal: Soft, mildly distended-improved from admission, nontender on palpation, few bowel sounds notable today Neurological: Alert, answering questions appropriately, cranial nerves intact, no focal findings Extremities: No gross joint deformity or swelling. AROMI. Neurovascularly intact Skin: Warm, dry. Const: Vital Signs, click to edit/add: Vital Signs - 24 hr 11/06/24 18:53 11/06/24 22:00 11/06/24 22:00 Temperature 96.8 F L 98.2 F Pulse Rate Pulse Rate [Pulse Oximeter] 98 116 H Respiratory Rate 20 20 20 Blood Pressure [Ri ght Arm] 150/86 H Blood Pressure [Ri ght Upper Arm] 135/80 Pulse Oximetry 96 91 91 Oxygen Delivery Me thod Room Air Room Air Room Air 11/06/24 22:48 11/06/24 22:48 11/07/24 01:50 Temperature 98.2 F Pulse Rate 75 Pulse Rate [Pulse Oximeter] 89 Respiratory Rate 20 16 Blood Pressure [Ri ght Arm] 156/82 H Blood Pressure [Ri ght Upper Arm] Pulse Oximetry 91 92 Oxygen Delivery Me thod Room Air Room Air 11/07/24 06:45 11/07/24 06:59 11/07/24 07:10 Temperature Pulse Rate 101 H 101 H Pulse Rate [Pulse Oximeter] 89 Respiratory Rate 18 Blood Pressure [Ri ght Arm] 137/72 Blood Pressure [Ri ght Upper Arm] Pulse Oximetry 91 Oxygen Delivery Me thod Room Air 11/07/24 08:05 11/07/24 08:07 Temperature 98.1 F Pulse Rate Pulse Rate [Pulse Oximeter] 89 Respiratory Rate 16 16 Blood Pressure [Ri ght Arm] 144/60 H Blood Pressure [Ri ght Upper Arm] Pulse Oximetry 92 Oxygen Delivery Me thod Room Air Labs Labs: Laboratory Results - last 24 hr 11/06/24 11/06/24 11/07/24 19:55 22:03 06:19 WBC Cancelled 16.13 H Corrected WBC Cancelled RBC Cancelled 3.68 L Hgb Cancelled 11.0 L Hct Cancelled 33.0 MCV Cancelled 90 MCH Cancelled 30 MCHC Cancelled 33 RDW Coeff of Albertina Cancelled Plt Count Cancelled 310 Neut % (Auto) Cancelled Lymph % (Auto) Cancelled [place] % (Auto) Cancelled Eos % (Auto) Cancelled Baso % (Auto) Cancelled Neut # (Auto) Cancelled Lymph # (Auto) Cancelled [place] # (Auto) Cancelled Eos # (Auto) Cancelled Baso # (Auto) Cancelled Abs Immat Gran (auto) Cancelled Imm/Tot Granulo (auto) Cancelled Sodium 133 L 136 Potassium 4.7 4.4 Chloride 89 L 99 Carbon Dioxide 29 29 Anion Gap 15 8 BUN 24 24 Creatinine 0.9 0.8 Estimated Creat Clear 32.79 32.79 Estimated GFR 62 71 Glucose 183 H 105 Calcium 11.1 H 9.2 Magnesium 1.9 1.9 Total Bilirubin 1.0 Direct Bilirubin 0.6 H AST 60 H ALT 31 Alkaline Phosphatase 97 Total Protein 8.8 H Albumin 4.6 Lipase 93 Lab Acknowledgement Test Added
--- NOTE | 2024-11-07 10:57 | P.GSCN_ITS ---
History of Present Illness Consult details Date Seen: 11/07/24 Consult date: 11/07/24 Narrative: Who presented to the emergency department with abdominal pain, nausea and vomiting. She has a history of a recent hospitalization (10/28-10/31) for small- bowel obstruction. This resolved with medical management. After leaving the hospital she felt normal. Yesterday during the day she thought she ate something that upset her stomach, which set off the pain. She continued on clear liquids but then started vomiting in the evening and she came into the emergency department. This is her 5th hospitalization for small-bowel obstructions in her lifetime. She 1st had an obstruction in 2020 which required lysis of adhesions and small-bowel resection. Later that year she was vacationing in [facility] and had another operative procedure. She had no further issues for about a year but then in November 2022 presented with a small-bowel obstruction which resolved with medical management. In between episodes she denies any complaints of chronic abdominal pain. She usually is able to tolerate a regular diet and have regular bowel movements. Since being admitted she has had placement of an NG tube. This morning she has been able to get up and walk around. She does report that she started to pass gas and had a bowel movement. Review of Systems Status of ROS: Reports: 10 or more systems reviewed and unremarkable except as noted in History and below [facility] Medical History Partial hamstring tear ?S76.319A - Strain of muscle, fascia and tendon of the posterior muscle group at thigh level, unspecified thigh, initial encounter (ICD-10) Right hip impingement syndrome ?M25.851 - Other specified joint disorders, right hip (ICD-10) Hypertension ?I10 - Essential (primary) hypertension (ICD-10) Left bundle branch block ?I44.7 - Left bundle-branch block, unspecified (ICD-10) Small bowel obstruction ?K56.609 - Unspecified intestinal obstruction, unspecified as to partial versus complete obstruction (ICD-10) Postoperative ileus ?K91.89 - Other postprocedural complications and disorders of digestive system (ICD-10) ?K56.7 - Ileus, unspecified (ICD-10) Postoperative hypoxia ?R09.02 - Hypoxemia (ICD-10) ?Z98.890 - Other specified postprocedural states (ICD-10) Anemia following surgery ?D64.9 - Anemia, unspecified (ICD-10) Strain of right hip ?S76.011A - Strain of muscle, fascia and tendon of right hip, initial encounter (ICD-10) Sigmoid diverticulosis ?K57.30 - Diverticulosis of large intestine without perforation or abscess without bleeding (ICD-10) Arthritis ?M19.90 - Unspecified osteoarthritis, unspecified site (ICD-10) GERD (gastroesophageal reflux disease) ?K21.9 - Gastro-esophageal reflux disease without esophagitis (ICD-10) Atrial fibrillation ?I48.91 - Unspecified atrial fibrillation (ICD-10) Hypothyroid ?E03.9 - Hypothyroidism, unspecified (ICD-10) Surgical History S/P laparotomy with lysis of adhesions ?Z98.890 - Other specified postprocedural states (ICD-10) 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) ?Z98.890 - Other specified postprocedural states (ICD-10) History of ankle surgery (12/04/92) ?Z98.890 - Other specified postprocedural states (ICD-10) 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 She lives in [place] with her . She does not smoke. She drinks 1 glass of wine a day. What is your current living situation?: I presently have a place to live Problems where you live: no known problems Problems where you live details: n/a In the past 12 months, utilities in danger of being shut off: no In the past 12 mos, have been you worried that your food would run out before you had money to buy more?: never true In the past 12 mos, the food you bought just didn't last and you didn't have money to buy more?: never true Highest level of school completed/degree received: Associate degree: occupational, technical, vocational program Smoking Status: Former smoker What tobacco products do you use: cigarettes Smoking quit date/years: >15 years ago Do you use any of these nicotine containing products: None Second hand tobacco smoke exposure: No How often do you have a drink containing alcohol: 4 or more times a week Alcohol type: wine Alcohol type details: daily glass of wine with dinner How many standard drinks containing alcohol do you have on a typical day: 1 or 2 How often do you have six or more drinks on one occasion: Never AUDIT-C Alcohol total score: 4 Non-prescribed substance use: denies use Caffeine: Yes How often does anyone, including family, friends and others, physically hurt you : never How often does anyone, including family, friends and others, insult or talk down to you: never How often does anyone, including family, friends and others, threaten you with harm: never How often does anyone, including family, friends and others, scream or curse at you: never service: No Meds Home Medications and Allergies Home Medications ?Medication ?Instructions ?Recorded ?Confirmed ?Type cetirizine 10 mg tablet 10 mg PO DAILY PRN 08/05/22 11/06/24 History levothyroxine 75 mcg tablet 75 mcg PO DAILY 08/05/22 11/06/24 History lisinopril 5 mg tablet 5 mg PO HS 08/05/22 11/06/24 History melatonin 5 mg capsule 5 mg PO HS PRN 08/05/22 11/06/24 History metoprolol tartrate 50 mg tablet 50 mg PO BID 08/05/22 11/06/24 History multivitamin 1 tab PO DAILY 08/05/22 11/06/24 History naproxen 250 mg tablet 250 mg PO BID PRN 04/12/23 11/06/24 History omega 9-phi-qmw-fish oil 60 mg-90 1 cap PO BID 04/12/23 11/06/24 History mg-500 mg capsule (Fish Oil) calcium carbonate (Calcium 500) 500 mg PO DAILY 09/23/23 11/06/24 History acetaminophen 500 mg capsule 500 - 1,000 mg PO Q6H PRN 10/28/24 11/06/24 History Allergies Allergy/AdvReac Type Severity Reaction Status Date / Time cat dander Allergy Verified 11/06/24 18:56 perfume Allergy Verified 11/06/24 18:56 Exam Narrative: Exam Narrative: General: Alert and oriented, no acute distress Respiratory: Equal breath rise bilaterally, maintained on room air CV: Well perfused Abdomen: Soft, mild distention, nontender to palpation with no guarding or rebound. Const: Vital Signs, click to edit/add: Vital Signs - 24 hr 11/06/24 18:53 11/06/24 22:00 11/06/24 22:00 Temperature 96.8 F L 98.2 F Pulse Rate Pulse Rate [Pulse Oximeter] 98 116 H Respiratory Rate 20 20 20 Blood Pressure [Ri ght Arm] 150/86 H Blood Pressure [Ri ght Upper Arm] 135/80 Pulse Oximetry 96 91 91 Oxygen Delivery Me thod Room Air Room Air Room Air 11/06/24 22:48 11/06/24 22:48 11/07/24 01:50 Temperature 98.2 F Pulse Rate 75 Pulse Rate [Pulse Oximeter] 89 Respiratory Rate 20 16 Blood Pressure [Ri ght Arm] 156/82 H Blood Pressure [Ri ght Upper Arm] Pulse Oximetry 91 92 Oxygen Delivery Me thod Room Air Room Air 11/07/24 06:45 11/07/24 06:59 11/07/24 07:10 Temperature Pulse Rate 101 H 101 H Pulse Rate [Pulse Oximeter] 89 Respiratory Rate 18 Blood Pressure [Ri ght Arm] 137/72 Blood Pressure [Ri ght Upper Arm] Pulse Oximetry 91 Oxygen Delivery Me thod Room Air 11/07/24 08:05 11/07/24 08:07 Temperature 98.1 F Pulse Rate Pulse Rate [Pulse Oximeter] 89 Respiratory Rate 16 16 Blood Pressure [Ri ght Arm] 144/60 H Blood Pressure [Ri ght Upper Arm] Pulse Oximetry 92 Oxygen Delivery Me thod Room Air Results Labs Labs: Abnormal lab results 11/06/24 11/07/24 Range/Units 19:55 06:19 WBC 16.13 H (4.50-11.00) K/uL RBC 3.68 L (4.00-5.20) m/uL Hgb 11.0 L (12.0-16.0) gm/dL Sodium 133 L (135-149) mmol/L Chloride 89 L (96-114) mmol/L Glucose 183 H (60-115) mg/dL Calcium 11.1 H (8.4-10.6) mg/dL Direct Bilirubin 0.6 H (0.0-0.5) mg/dL AST 60 H (12-35) U/L Total Protein 8.8 H (6.0-8.3) g/dL Diabetes panel 11/06/24 11/07/24 Range/Units 19:55 06:19 Sodium 133 L 136 (135-149) mmol/L Potassium 4.7 4.4 (3.6-5.1) mmol/L Chloride 89 L 99 (96-114) mmol/L Carbon Dioxide 29 29 (20-32) mmol/L BUN 24 24 (7-30) mg/dL Creatinine 0.9 0.8 (0.5-1.5) mg/dL Glucose 183 H 105 (60-115) mg/dL Calcium 11.1 H 9.2 (8.4-10.6) mg/dL AST 60 H (12-35) U/L ALT 31 (4-35) U/L Alkaline Phosphatase 97 (40-150) U/L Total Protein 8.8 H (6.0-8.3) g/dL Albumin 4.6 (3.3-5.0) g/dL Calcium panel 11/06/24 11/07/24 Range/Units 19:55 06:19 Calcium 11.1 H 9.2 (8.4-10.6) mg/dL Albumin 4.6 (3.3-5.0) g/dL Pituitary panel 11/06/24 11/07/24 Range/Units 19:55 06:19 Sodium 133 L 136 (135-149) mmol/L Potassium 4.7 4.4 (3.6-5.1) mmol/L Chloride 89 L 99 (96-114) mmol/L Carbon Dioxide 29 29 (20-32) mmol/L BUN 24 24 (7-30) mg/dL Creatinine 0.9 0.8 (0.5-1.5) mg/dL Glucose 183 H 105 (60-115) mg/dL Calcium 11.1 H 9.2 (8.4-10.6) mg/dL Adrenal panel 11/06/24 11/07/24 Range/Units 19:55 06:19 Sodium 133 L 136 (135-149) mmol/L Potassium 4.7 4.4 (3.6-5.1) mmol/L Chloride 89 L 99 (96-114) mmol/L Carbon Dioxide 29 29 (20-32) mmol/L BUN 24 24 (7-30) mg/dL Creatinine 0.9 0.8 (0.5-1.5) mg/dL Glucose 183 H 105 (60-115) mg/dL Calcium 11.1 H 9.2 (8.4-10.6) mg/dL Total Bilirubin 1.0 (0.1-1.5) mg/dL AST 60 H (12-35) U/L ALT 31 (4-35) U/L Alkaline Phosphatase 97 (40-150) U/L Total Protein 8.8 H (6.0-8.3) g/dL Albumin 4.6 (3.3-5.0) g/dL All other labs normal. Imaging Abdomen CT scan report/results: report reviewed and image reviewed Progress Note:A&P Assessment and plan (1) Small bowel obstruction: Status: Acute Assessment and Plan: Patient is an 89-year-old female who presents with a small-bowel obstruction. This is her 2nd hospitalization in the last 2 weeks for this issue. Vital signs have been stable. Labs are significant for leukocytosis (16). CT scan was reviewed which showed small-bowel obstruction with transition point in the midline lower abdomen near her previous anastomosis. Since placement of an NG tube she has had return of bowel function. On examination she has mild distention, but a benign abdomen with no complaints of pain. NG tube has been in place for left than 6 hours. Would recommend that she continue with NG tube to low intermittent suction today. Clamping trial for this evening with re-evaluation in the morning. Recommend that she continue NPO, IV fluids. Encourage ambulation.
[2024-11-07] MEDS: MAGNESIUM IV 2 GM/50 ML PIGGYBACK IVPB (12:22)
--- NOTE | 2024-11-07 15:02 | PC.SOCIAL ---
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 Pt stated that she is feeling better and that she has no concerns about returning home. Pt lives with her and they are doing well at home. Social work to follow-up as needed.
[2024-11-07 18:05] LABS: Basophils Percent Auto 0.3 % (0.0-3.0); Eosinophils Percent Auto 1.1 % (0.0-7.0); Hematocrit 33.6 % (33.0-51.0); Immature Granulocytes Pct Auto 0.4 %; Mean Corpuscular HGB Conc 33 gm/dL (32-36); Mean Corpuscular Hemoglobin 30 pg (26-34); Mean Corpuscular Volume 91 fL (80-100); Monocytes Percent Auto 5.5 % (0.0-11.0); Neutrophils Percent Auto 81.7 % (42.0-72.0); Platelet Count* 284 K/uL (140-440); RDW Coefficient of Variation % 14.4 % (11.5-15.5); Red Blood Count 3.71 m/uL (4.00-5.20); White Blood Count* 11.33 K/uL (4.50-11.00)
[2024-11-07 18:13] LABS: Slide Review Reflex No
--- NOTE | 2024-11-07 19:57 | PC.NURSE ---
end of shift. pt is so very pleasant. she is alert x4. no pain, tele shows NSR. IV is patent; and infusing in right hand infusing @ 125 mL/hr. she is NPO and is taking in ice chips . NG tube at 65 cm in right nare. suction is @ LIS. Pt is up ad liborio in her room with a steady gait, denies dizziness. Abdomen is soft and distended. Bowel sounds hypoactive on left side. Reports her last BM was this morning.
[2024-11-07] MEDS: lisinopriL 5 MG TABLET PO (21:34)
[2024-11-07] MEDS: ENOXAPARIN 40 MG/0.4 ML INJ SUBCUT (21:35)
[2024-11-07] MEDS: SODIUM CHLORIDE 0.9 % (FLUSH) 10 ML SYRINGE 5 ML IVF (21:35)
[2024-11-07] MEDS: ACETAMINOPHEN 325 MG TABLET 650 MG PO (21:41)
[2024-11-07] MEDS: BENZOCAINE/MENTHOL 1 EACH LOZENGE MUCOUS MEM (23:02)
[2024-11-08] VITALS (7 sets, daily range): BP systolic 140–180; BP diastolic 70–88; PULSE 69–92; RESP 16–22; TEMP 36.1–36.6; O2SAT 93–97
[2024-11-08] MEDS: 0.9 % SODIUM CHLORIDE 1000 ml 1,000 ML 125 ML IV ×2 (01:05→09:36)
[2024-11-08] MEDS: LEVOTHYROXINE 75 MCG TABLET PO (06:27)
--- NOTE | 2024-11-08 06:45 | PC.NURSE ---
END OF SHIFT NOTE: PT PLEASANT AND COOPERATIVE. A&Ox4. DENIES CP, SOB, N/V. AMBULATES INDEPENDENTLY; WALKING THE HALLS. VSS ON RA; AFEBRILE. NG IN PLACE, CLAMPED AT 65 TO RIGHT NARE; NG CLAMP TRIAL STARTED @2130; PT TOLERATING WELL. DENIES N/V AND ABD DISTENTION. NS@125ML/HR. CALL LIGHT WITHIN PT?S REACH.?
[2024-11-08 07:16] LABS: Hematocrit 32.3 % (33.0-51.0); Hemoglobin* 10.4 gm/dL (12.0-16.0); Mean Corpuscular HGB Conc 32 gm/dL (32-36); Mean Corpuscular Hemoglobin 30 pg (26-34); Mean Corpuscular Volume 92 fL (80-100); Platelet Count* 294 K/uL (140-440); Red Blood Count 3.53 m/uL (4.00-5.20)
[2024-11-08 07:19] LABS: Slide Review Reflex No
[2024-11-08 07:20] LABS: Chloride* 104 mmol/L (96-114); Potassium* 3.6 mmol/L (3.6-5.1); Sodium* 136 mmol/L (135-149)
[2024-11-08 07:23] LABS: Anion Gap 11 mEq/L (7-15); Blood Urea Nitrogen* 18 mg/dL (7-30); Carbon Dioxide* 21 mmol/L (20-32); Creatinine* 0.6 mg/dL (0.5-1.5); Est. Creatinine Clearance* 32.79; Estimated Glomerular Filt Rate 87 ml/min; Glucose* 72 mg/dL (60-115)
[2024-11-08 07:24] LABS: Calcium* 8.7 mg/dL (8.4-10.6)
[2024-11-08] MEDS: PANTOPRAZOLE SODIUM 40 MG INJ IVP (09:36)
[2024-11-08] MEDS: METOPROLOL TARTRATE 50 MG TABLET PO ×2 (09:36→20:39)
[2024-11-08] MEDS: BENZOCAINE/MENTHOL 1 EACH LOZENGE MUCOUS MEM (10:42)
--- NOTE | 2024-11-08 11:04 | P.IMPN_ITS ---
Progress Note: A&P Assessment and plan (1) Small bowel obstruction: Problem details: -recurrent, 5th occurrence since 2020, requiring 2 previous surgeries -NG placed 11/06/24 in ED, discontinued this morning, 11/08/2024 -continue IV fluids until it is clear that she can tolerate clear liquid diet -pain and nausea management as needed -encourage ambulation -appreciate General surgery, Dr. Campbell's recommendations -total bili 1.0 direct bili, 0.6 AST 60, ALT 31, lipase 93, magnesium 1.9 - repl aced with 2 g IV Status: Acute (2) ESTEFANY (acute kidney injury): Problem details: - ESTEFANY on admission (Cr 0.9), baseline 0.5 (CKD stage 3b) - 11/08 Cr 0.6, baseline is 0.5, Cont IVF until taking adequate PO fluid, recheck BMP in am Status: Acute (3) CKD (chronic kidney disease): Problem details: - stage 3b, baseline CR 0.5 Status: Chronic (4) Leukocytosis: Problem details: -admission WBC was not collected. WBC from 11/07 is 16.13. More than likely reactionary. Remains afebrile, clinically improving. Will recheck this evening. Defer antibiotics at this time, discussed with General surgery, in agreement -11/08 resolved Status: Resolved (5) Hypertension: Problem details: -continue lisinopril and metoprolol Status: Chronic (6) Hypothyroid: Problem details: -continue Levothyroxine Status: Chronic (7) Hyponatremia: Problem details: -sodium 133, stable, within baseline. 136 following NS hydration. - 11/08 stable at 136 Status: Resolved Subjective Time Seen by Provider: 09:34 Date Seen: 11/08/24 Interval history: Brandy denies nausea or vomiting. Feeling much better. +flatus, no BM. NGT was clamped overnight and was removed just a bit ago. Brandy states she just started having a mild epigastric pain a few minutes ago. She denies dyspnea or CP. Exam Narrative: Exam Narrative: General: No acute distress. Awake, alert, oriented x3. No pallor. No jaundice. Oropharynx: Clear. Mucous membranes moist. Cardiovascular: Regular rate and rhythm. No murmurs, gallops, or rubs. Respiratory: Clear to auscultation bilaterally. No wheezes or crackles. Chest: Tender to palpation over the sternum which reproduces her epigastric pain. Abdomen: Bowel sounds present. Soft, nondistended, nontender. Specifically no tenderness in the epigastrium. Extremities: No lower extremity edema. Const: Vital Signs, click to edit/add: Vital Signs - 24 hr 11/07/24 12:10 11/07/24 16:00 11/07/24 16:00 Temperature 98.0 F 98 F Pulse Rate Pulse Rate [Pulse Oximeter] Respiratory Rate 16 16 16 Blood Pressure [Ri ght Arm] 147/72 H 153/76 H Pulse Oximetry 97 97 Oxygen Delivery Me thod Room Air Room Air 11/07/24 16:16 11/07/24 21:30 11/07/24 21:30 Temperature 97.6 F Pulse Rate 88 68 Pulse Rate [Pulse Oximeter] 77 Respiratory Rate 18 Blood Pressure [Ri ght Arm] 169/72 H Pulse Oximetry 93 Oxygen Delivery Me thod Room Air 11/07/24 21:30 11/07/24 23:00 11/08/24 03:40 Temperature 97.9 F Pulse Rate Pulse Rate [Pulse Oximeter] 69 74 Respiratory Rate 18 16 16 Blood Pressure [Ri ght Arm] 153/74 H 140/79 H Pulse Oximetry 92 94 Oxygen Delivery Me thod Room Air Room Air 11/08/24 07:32 11/08/24 09:03 Temperature 97.9 F Pulse Rate 83 Pulse Rate [Pulse Oximeter] 92 Respiratory Rate 16 Blood Pressure [Ri ght Arm] 161/76 H Pulse Oximetry 96 Oxygen Delivery Me thod Room Air Labs Labs: Laboratory Results - last 24 hr 11/07/24 11/08/24 17:59 06:40 WBC 11.33 H 9.10 RBC 3.71 L 3.53 L Hgb 11.0 L 10.4 L Hct 33.6 32.3 L MCV 91 92 MCH 30 30 MCHC 33 32 RDW Coeff of Albertina 14.4 Plt Count 284 294 Neut % (Auto) 81.7 H Lymph % (Auto) 11.0 L [place] % (Auto) 5.5 Eos % (Auto) 1.1 Baso % (Auto) 0.3 Neut # (Auto) 9.30 H Lymph # (Auto) 1.20 [place] # (Auto) 0.60 Eos # (Auto) 0.10 Baso # (Auto) 0.00 Abs Immat Gran (auto) 0.00 Imm/Tot Granulo (auto) 0.4 Sodium 136 Potassium 3.6 Chloride 104 Carbon Dioxide 21 Anion Gap 11 BUN 18 Creatinine 0.6 Estimated Creat Clear 32.79 Estimated GFR 87 Glucose 72 Calcium 8.7
[2024-11-08] MEDS: ACETAMINOPHEN 325 MG TABLET 650 MG PO ×2 (11:46→18:24)
--- NOTE | 2024-11-08 12:15 | PM.GSPN ---
Subjective Subjective Date Seen: 11/08/24 Interval history: Patient is doing well this morning. She denies any abdominal pain. She still has some mild distention. She has continued to pass gas. She had 1 bowel movement yesterday, nothing overnight. Her NG tube has been clamped overnight. Exam Narrative: Exam Narrative: General: Alert and oriented, no acute distress. Abdomen: Mild distention, soft and nontender. HEENT: NG tube in place Const: Vital Signs, click to edit/add: Vital Signs - 24 hr 11/07/24 16:00 11/07/24 16:00 11/07/24 16:16 Temperature 98 F Pulse Rate 88 Pulse Rate [Pulse Oximeter] Respiratory Rate 16 16 Blood Pressure [Ri ght Arm] 153/76 H Pulse Oximetry 97 Oxygen Delivery Me thod Room Air 11/07/24 21:30 11/07/24 21:30 11/07/24 21:30 Temperature 97.6 F Pulse Rate 68 Pulse Rate [Pulse Oximeter] 77 Respiratory Rate 18 18 Blood Pressure [Ri ght Arm] 169/72 H Pulse Oximetry 93 Oxygen Delivery Me thod Room Air 11/07/24 23:00 11/08/24 03:40 11/08/24 07:32 Temperature 97.9 F Pulse Rate 83 Pulse Rate [Pulse Oximeter] 69 74 Respiratory Rate 16 16 Blood Pressure [Ri ght Arm] 153/74 H 140/79 H Pulse Oximetry 92 94 Oxygen Delivery Me thod Room Air Room Air 11/08/24 09:03 11/08/24 11:59 Temperature 97.9 F 97.5 F L Pulse Rate Pulse Rate [Pulse Oximeter] 92 78 Respiratory Rate 16 16 Blood Pressure [Ri ght Arm] 161/76 H 166/88 H Pulse Oximetry 96 97 Oxygen Delivery Me thod Room Air Room Air Labs/Imaging Labs Labs: No leukocytosis. Imaging Imaging: No new imaging Progress Note:A&P Assessment and plan (1) Small bowel obstruction: Status: Acute Assessment and Plan: Patient is hospital day 2 for medical management of her small bowel obstruction. NG tube has been clamped overnight. Patient has had return of bowel function. Okay to remove this morning and start clear liquids. Recommend slow advancement.
[2024-11-08] MEDS: lisinopriL 5 MG TABLET PO (20:39)
[2024-11-08] MEDS: ENOXAPARIN 40 MG/0.4 ML INJ SUBCUT (20:39)
[2024-11-08] MEDS: SODIUM CHLORIDE 0.9 % (FLUSH) 10 ML SYRINGE 5 ML IVF (20:40)
[2024-11-09 03:00] VITALS: BP 154/75; PULSE 78; RESP 18; TEMP 36.6; O2SAT 91
--- NOTE | 2024-11-09 06:11 | PC.NURSE ---
End of shift [id number]: Alert and oriented x4. Denies any pain this shift. Bowel sounds hypoactive in RUQ and LUQ and active in bilateral lower quadrants. At 1900 patient's abdomen was firm and distended, patient ambulated in hallway x 3 and at 2300 patient's abdomen was softer and patient reports that she has been able to pass flatus but no further bowel movements. Denies any nausea or vomiting. Tolerating clear liquids with discomfort. Ambulates independently in room and through unit.
[2024-11-09] MEDS: LEVOTHYROXINE 75 MCG TABLET PO (06:26)
[2024-11-09 07:00] VITALS: BP 163/105; PULSE 94; RESP 18; TEMP 36.7; O2SAT 98
[2024-11-09 07:16] LABS: Chloride* 103 mmol/L (96-114); Potassium* 3.6 mmol/L (3.6-5.1); Sodium* 132 mmol/L (135-149)
[2024-11-09 07:18] LABS: Creatinine* 0.5 mg/dL (0.5-1.5); Est. Creatinine Clearance* 32.79; Estimated Glomerular Filt Rate 91 ml/min
[2024-11-09 07:19] LABS: Anion Gap 10 mEq/L (7-15); Blood Urea Nitrogen* 10 mg/dL (7-30); Calcium* 8.8 mg/dL (8.4-10.6); Carbon Dioxide* 19 mmol/L (20-32); Glucose* 77 mg/dL (60-115)
[2024-11-09 07:30] LABS: Hemoglobin* 10.1 gm/dL (12.0-16.0); Mean Corpuscular HGB Conc 33 gm/dL (32-36); Mean Corpuscular Hemoglobin 29 pg (26-34); Mean Corpuscular Volume 90 fL (80-100); Platelet Count* 284 K/uL (140-440); Red Blood Count 3.43 m/uL (4.00-5.20); White Blood Count* 7.13 K/uL (4.50-11.00)
[2024-11-09 07:37] LABS: Slide Review Reflex No
[2024-11-09] MEDS: METOPROLOL TARTRATE 50 MG TABLET PO ×2 (09:39→20:28)
[2024-11-09] MEDS: SODIUM CHLORIDE 0.9 % (FLUSH) 10 ML SYRINGE 5 ML IVF ×2 (09:40→20:28)
[2024-11-09] MEDS: PANTOPRAZOLE SODIUM 40 MG INJ IVP (09:40)
[2024-11-09] MEDS: bisacodyL 10 MG SUPP.RECT PR (09:40)
--- NOTE | 2024-11-09 10:52 | PM.IMPN1 ---
Progress Note: A&P Assessment and plan (1) Small bowel obstruction: Problem details: -recurrent, 5th occurrence since 2020, requiring 2 previous surgeries -total bili 1.0 direct bili, 0.6 AST 60, ALT 31, lipase 93, magnesium 1.9 - replaced with 2 g IV -NG placed 11/06/24 in ED, discontinued 11/08/2024 -11/08 tolerating clears, IVF d/c'd. -11/09 tolerating clears, only very small BM. Trialing po miralax and suppository today. -pain and nausea management as needed -encourage ambulation -appreciate General surgery, Dr. Campbell's recommendations Status: Resolved (2) Hypertension: Problem details: -continue lisinopril and metoprolol Status: Chronic (3) Hypothyroid: Problem details: -continue Levothyroxine Status: Chronic (4) Hyponatremia: Problem details: -sodium 133, stable, within baseline. 136 following NS hydration. - 11/08 stable at 136 - 11/09 IVF stopped yesterday, drinking clears. Na 132 this morning. This will likely correct as she starts eating. Monitor. Status: Acute (5) Leukocytosis: Problem details: -admission WBC was not collected. WBC from 11/07 is 16.13. More than likely reactionary. Remains afebrile, clinically improving. Will recheck this evening. Defer antibiotics at this time, discussed with General surgery, in agreement -11/08 resolved Status: Resolved (6) ESTEFANY (acute kidney injury): Problem details: - ESTEFANY on admission (Cr 0.9), baseline 0.5 (CKD stage 3b) - 11/08 Cr 0.6, baseline is 0.5, Cont IVF until taking adequate PO fluid, recheck BMP in am - 11/09 Cr @ baseline of 0.5 today. IVF stopped yesterday as patient was taking adequate PO fluid. Status: Resolved (7) CKD (chronic kidney disease): Problem details: - stage 3b, baseline CR 0.5 Status: Chronic Subjective Time Seen by Provider: 09:10 Date Seen: 11/09/24 Interval history: Brandy feels well. She denies CP or abdominal pain. She had a small 50-cent piece sized stool overnight. Exam Narrative: Exam Narrative: General: No acute distress. Awake, alert, oriented. No pallor. No jaundice. No NGT. Oropharynx: Clear. Mucous membranes moist. Cardiovascular: Regular rate and rhythm. No murmurs, gallops, or rubs. Respiratory: Clear to auscultation bilaterally. No wheezes or crackles. Abdomen: Bowel sounds present. Soft, nondistended, nontender. Const: Vital Signs, click to edit/add: Vital Signs - 24 hr 11/08/24 11:59 11/08/24 15:48 11/08/24 19:00 Temperature 97.5 F L 97.5 F L 97.0 F L Pulse Rate [Pulse Oximeter] 78 86 84 Respiratory Rate 16 16 22 Blood Pressure [Le ft Arm] Blood Pressure [Ri ght Arm] 166/88 H 167/73 H 180/88 H Pulse Oximetry 97 97 94 Oxygen Delivery Me thod Room Air Room Air Room Air 11/08/24 23:00 11/08/24 23:00 11/09/24 03:00 Temperature 97.8 F 97.9 F Pulse Rate [Pulse Oximeter] 84 69 78 Respiratory Rate 16 16 18 Blood Pressure [Le ft Arm] Blood Pressure [Ri ght Arm] 144/70 H 154/75 H Pulse Oximetry 93 91 Oxygen Delivery Me thod Room Air Room Air 11/09/24 07:00 Temperature 98.0 F Pulse Rate [Pulse Oximeter] 94 Respiratory Rate 18 Blood Pressure [Le ft Arm] 163/105 H Blood Pressure [Ri ght Arm] Pulse Oximetry 98 Oxygen Delivery Me thod Room Air Labs Labs: Laboratory Results - last 24 hr 11/09/24 06:32 WBC 7.13 RBC 3.43 L Hgb 10.1 L Hct 31.0 L MCV 90 MCH 29 MCHC 33 Plt Count 284 Sodium 132 L Potassium 3.6 Chloride 103 Carbon Dioxide 19 L Anion Gap 10 BUN 10 Creatinine 0.5 Estimated Creat Clear 32.79 Estimated GFR 91 Glucose 77 Calcium 8.8
[2024-11-09 11:00] VITALS: BP 161/82; PULSE 72; RESP 18; TEMP 36.6; O2SAT 98
--- NOTE | 2024-11-09 11:14 | PM.GSPN ---
Subjective Subjective Date Seen: 11/09/24 Interval history: Patient is doing ?okay? this morning. Overnight she did have some increased distension and abdominal pain. This improved with passing gas. She did pass a single hard stool. She has been tolerating clear liquids without any nausea or vomiting. Overall she feels very stressed about everything that she needs to do for the holidays coming up and worries about whether not she needs surgery. Exam Narrative: Exam Narrative: General: Alert and oriented, no acute distress Abdomen: Soft, mild distention, nontender to palpation. Const: Vital Signs, click to edit/add: Vital Signs - 24 hr 11/08/24 11:59 11/08/24 15:48 11/08/24 19:00 Temperature 97.5 F L 97.5 F L 97.0 F L Pulse Rate [Pulse Oximeter] 78 86 84 Respiratory Rate 16 16 22 Blood Pressure [Le ft Arm] Blood Pressure [Ri ght Arm] 166/88 H 167/73 H 180/88 H Pulse Oximetry 97 97 94 Oxygen Delivery Me thod Room Air Room Air Room Air 11/08/24 23:00 11/08/24 23:00 11/09/24 03:00 Temperature 97.8 F 97.9 F Pulse Rate [Pulse Oximeter] 84 69 78 Respiratory Rate 16 16 18 Blood Pressure [Le ft Arm] Blood Pressure [Ri ght Arm] 144/70 H 154/75 H Pulse Oximetry 93 91 Oxygen Delivery Me thod Room Air Room Air 11/09/24 07:00 Temperature 98.0 F Pulse Rate [Pulse Oximeter] 94 Respiratory Rate 18 Blood Pressure [Le ft Arm] 163/105 H Blood Pressure [Ri ght Arm] Pulse Oximetry 98 Oxygen Delivery Me thod Room Air Labs/Imaging Labs Labs: No leukocytosis Progress Note:A&P Assessment and plan (1) Small bowel obstruction: Status: Resolved Assessment and Plan: Patient is hospital day 3 for medical management of her small bowel obstruction. NG tube was removed yesterday. Patient has tolerated clears. Recommend a suppository this morning, can also start an oral laxatives such as MiraLax. Will plan for slow advancement of diet today.
[2024-11-09] MEDS: polyethylene glycoL 3350 17 GM PACK PO (12:16)
[2024-11-09 15:00] VITALS: BP 173/88; PULSE 67; RESP 16; TEMP 36.6; O2SAT 96
[2024-11-09] MEDS: DOCUSATE SODIUM 100 MG CAPSULE PO (15:38)
[2024-11-09] MEDS: CALCIUM CARBONATE 500 MG CHEW PO ×2 (16:07→20:27)
--- NOTE | 2024-11-09 18:39 | PC.NURSE ---
7-19: The patient is pleasant and alert and orientated, although noted to be anxious regarding being in the hospital prior to [facility], as she is hosting it at her house. Encouraged coping and stress management techniques to ease her worry. Ambulating in the halls throughout the day. Noted to be distended, although bowel sounds are active, passing flatus, and the patient has had 3 hard small formed pellets of stool. Suppository and miralax as well as a stool softener were given today. Clear liquids continue... the patient reports feeling full fast, she also reported some GERD this afternoon. CA carbonate was given. Independent in the room. The patients visited today. Regina HARO BSN
[2024-11-09 19:00] VITALS: BP 180/78; PULSE 80; RESP 16; TEMP 36.3; O2SAT 97
[2024-11-09] MEDS: lisinopriL 5 MG TABLET PO (20:27)
[2024-11-09] MEDS: ENOXAPARIN 40 MG/0.4 ML INJ SUBCUT (20:28)
[2024-11-09 22:30] VITALS: BP 152/80; PULSE 62; PULSE 80; RESP 16; TEMP 36.5; O2SAT 97
[2024-11-10] VITALS (7 sets, daily range): BP systolic 150–170; BP diastolic 77–94; PULSE 61–78; RESP 16–19; TEMP 36.3–36.7; O2SAT 93–98
[2024-11-10] MEDS: CALCIUM CARBONATE 500 MG CHEW PO ×2 (04:59→11:21)
--- NOTE | 2024-11-10 06:10 | PC.NURSE ---
Shift note: Pt continue to have abdominal distention but denied N/V. She complained of mild abd. pain without tenderness. Patient endorses passing gas. Pt has hyperactive bowel sound. She had small hard stool tonight. She ambulated independently in the hallway. Alert and oriented. Systolic Bp was elevated.
[2024-11-10 06:24] LABS: Hematocrit 34.6 % (33.0-51.0); Hemoglobin* 11.5 gm/dL (12.0-16.0); Mean Corpuscular HGB Conc 33 gm/dL (32-36); Mean Corpuscular Hemoglobin 30 pg (26-34); Mean Corpuscular Volume 89 fL (80-100); Platelet Count* 306 K/uL (140-440); Red Blood Count 3.87 m/uL (4.00-5.20); Slide Review Reflex No; White Blood Count* 6.24 K/uL (4.50-11.00)
[2024-11-10 06:32] LABS: Chloride* 99 mmol/L (96-114); Potassium* 3.2 mmol/L (3.6-5.1); Sodium* 133 mmol/L (135-149)
[2024-11-10 06:34] LABS: Creatinine* 0.5 mg/dL (0.5-1.5); Est. Creatinine Clearance* 32.79; Estimated Glomerular Filt Rate 91 ml/min
[2024-11-10 06:35] LABS: Anion Gap 11 mEq/L (7-15); Blood Urea Nitrogen* 7 mg/dL (7-30); Calcium* 9.3 mg/dL (8.4-10.6); Carbon Dioxide* 23 mmol/L (20-32); Glucose* 95 mg/dL (60-115)
[2024-11-10] MEDS: LEVOTHYROXINE 75 MCG TABLET PO (06:47)
--- NOTE | 2024-11-10 08:15 | PM.IMPN1 ---
Progress Note: A&P Assessment and plan (1) Small bowel obstruction: Problem details: -recurrent, 5th occurrence since 2020, requiring 2 previous surgeries -total bili 1.0 direct bili, 0.6 AST 60, ALT 31, lipase 93, magnesium 1.9 - replaced with 2 g IV -NG placed 11/06/24 in ED, discontinued 11/08/2024 -11/08 tolerating clears, IVF d/c'd. -11/09 tolerating clears, only very small BM. Trialing po miralax and suppository today. -11/10 tolerating soft diet, cont laxatives -pain and nausea management as needed -encourage ambulation -appreciate General surgery, Dr. Campbell's recommendations Status: Acute (2) Hypertension: Problem details: -continue lisinopril and metoprolol Status: Chronic (3) Hypothyroid: Problem details: -continue Levothyroxine Status: Chronic (4) Hyponatremia: Problem details: -sodium 133, stable, within baseline. 136 following NS hydration. - 11/08 stable at 136 - 11/09 IVF stopped yesterday, drinking clears. Na 132 this morning. This will likely correct as she starts eating. Monitor. Status: Acute (5) Leukocytosis: Problem details: -admission WBC was not collected. WBC from 11/07 is 16.13. More than likely reactionary. Remains afebrile, clinically improving. Will recheck this evening. Defer antibiotics at this time, discussed with General surgery, in agreement -11/08 resolved Status: Resolved (6) ESTEFANY (acute kidney injury): Problem details: - ESTEFANY on admission (Cr 0.9), baseline 0.5 (CKD stage 3b) - 11/08 Cr 0.6, baseline is 0.5, Cont IVF until taking adequate PO fluid, recheck BMP in am - 11/09 Cr @ baseline of 0.5 today. IVF stopped yesterday as patient was taking adequate PO fluid. Status: Resolved (7) CKD (chronic kidney disease): Problem details: - stage 3b, baseline CR 0.5 Status: Chronic Subjective Date Seen: 11/10/24 Interval history: Pt seen and examined, she feels well. She is tolerating advancing diet andcont laxatives. Exam Narrative: Exam Narrative: GENERAL: Comfortable, no acute distress. HEAD AND NECK: Atraumatic, normocephalic CARDIOVASCULAR: RRR. Normal S1, S2. No murmurs. RESPIRATORY: Clear to auscultation B/L. Good air entry B/L. No wheezes or rhonchi. GASTROINTESTINAL: Not distended, not tender to palpation. NEUROLOGY: Alert, awake Normal speech. PSYCH: Normal mood, normal affect. Const: Vital Signs, click to edit/add: Vital Signs - 24 hr 11/09/24 11:00 11/09/24 15:00 11/09/24 19:00 Temperature 97.9 F 97.8 F 97.3 F L Pulse Rate [Pulse Oximeter] 72 67 80 Respiratory Rate 18 16 16 Blood Pressure [Le ft Arm] 161/82 H Blood Pressure [Ri ght Arm] 173/88 H 180/78 H Pulse Oximetry 98 96 97 Oxygen Delivery Me thod Room Air Room Air Room Air 11/09/24 22:30 11/09/24 22:30 11/10/24 03:00 Temperature 97.7 F 97.7 F Pulse Rate [Pulse Oximeter] 62 80 76 Respiratory Rate 16 16 16 Blood Pressure [Le ft Arm] Blood Pressure [Ri ght Arm] 152/80 H 165/77 H Pulse Oximetry 97 93 Oxygen Delivery Me thod Room Air Room Air Labs Labs: Laboratory Results - last 24 hr 11/10/24 06:12 WBC 6.24 RBC 3.87 L Hgb 11.5 L Hct 34.6 MCV 89 MCH 30 MCHC 33 Plt Count 306 Sodium 133 L Potassium 3.2 L Chloride 99 Carbon Dioxide 23 Anion Gap 11 BUN 7 Creatinine 0.5 Estimated Creat Clear 32.79 Estimated GFR 91 Glucose 95 Calcium 9.3
[2024-11-10] MEDS: POTASSIUM CHLORIDE 10 MEQ CAPSULE ER 40 MEQ PO (09:15)
[2024-11-10] MEDS: METOPROLOL TARTRATE 50 MG TABLET PO ×2 (09:16→20:57)
[2024-11-10] MEDS: MAGNESIUM HYDROXIDE 30 ML ORAL.SUSP PO (09:16)
[2024-11-10] MEDS: PANTOPRAZOLE SODIUM 40 MG INJ IVP (09:16)
[2024-11-10] MEDS: SODIUM CHLORIDE 0.9 % (FLUSH) 10 ML SYRINGE 5 ML IVF ×2 (09:25→20:57)
[2024-11-10] MEDS: polyethylene glycoL 3350 17 GM PACK PO (09:29)
[2024-11-10] MEDS: DOCUSATE SODIUM 100 MG CAPSULE PO (09:29)
--- NOTE | 2024-11-10 10:36 | P.GSPN_ITS ---
Subjective Subjective Date Seen: 11/10/24 Interval history: Patient is doing well this morning. Depressed about being in the hospital still. Has tolerated clear liquids and feels like eating more solid foods. Continues to pass gas and had a few small, hard stools. Denies any nausea, still feels bloated. Exam Narrative: Exam Narrative: Gen: alert and oriented, NAD Abd: mild distension, soft, nontender, pos bowel sounds Const: Vital Signs, click to edit/add: Vital Signs - 24 hr 11/09/24 11:00 11/09/24 15:00 11/09/24 19:00 Temperature 97.9 F 97.8 F 97.3 F L Pulse Rate [Pulse Oximeter] 72 67 80 Respiratory Rate 18 16 16 Blood Pressure [Le ft Arm] 161/82 H Blood Pressure [Ri ght Arm] 173/88 H 180/78 H Pulse Oximetry 98 96 97 Oxygen Delivery Me thod Room Air Room Air Room Air 11/09/24 22:30 11/09/24 22:30 11/10/24 03:00 Temperature 97.7 F 97.7 F Pulse Rate [Pulse Oximeter] 62 80 76 Respiratory Rate 16 16 16 Blood Pressure [Le ft Arm] Blood Pressure [Ri ght Arm] 152/80 H 165/77 H Pulse Oximetry 97 93 Oxygen Delivery Me thod Room Air Room Air 11/10/24 08:20 Temperature 97.8 F Pulse Rate [Pulse Oximeter] 70 Respiratory Rate 19 Blood Pressure [Le ft Arm] 168/92 H Blood Pressure [Ri ght Arm] Pulse Oximetry 98 Oxygen Delivery Me thod Room Air Labs/Imaging Labs Labs: NO Leukocytosis, hyponatremia Progress Note:A&P Assessment and plan (1) Small bowel obstruction: Status: Resolved Assessment and Plan: Patient is hospital day 4 for medical management of her small bowel obstruction. Return of bowel function. Ok to advance diet as tolerated and increase oral la xatives. Miralax and MoM ordered for today. Anticipate discharge later today vs tomorrow.
[2024-11-10] MEDS: bisacodyL 10 MG SUPP.RECT PR (11:21)
[2024-11-10] MEDS: MORPHINE 4 MG/ML INJ 2 MG IVP (15:00)
--- NOTE | 2024-11-10 15:38 | PC.NURSE ---
Patient alert and oriented. Milk of mag, PRN Colace , miralax and and suppository given this shift. Has had 3 BMs this shift ( a small formed one, a medium formed and medium loose BM respectively) Continues to report abdominal discomfort. PRN morphine was given. Ok to advance diet as tolerated per Dr Campbell. Patient did have some cereal with milk in the morning.She did complain of abdominal discomfort after eating. Patient ambulating frequently in the hallway. Able to communicate needs.
--- NOTE | 2024-11-10 19:47 | PC.NURSE ---
15-19: The patient is pleasant, although reports more abdominal discomfort... PRN medication was given by prior RN. Upon reassessment the patient states that it improved. Advanced to a regular diet, although only had mashed potatoes. Following this the patient reported having 2 normal soft BM's. No nausea reported. Regina HARO BSN
[2024-11-10] MEDS: lisinopriL 5 MG TABLET PO (20:57)
[2024-11-10] MEDS: ENOXAPARIN 40 MG/0.4 ML INJ SUBCUT (20:57)
[2024-11-11 03:00] VITALS: BP 154/76; PULSE 69; RESP 18; TEMP 36.6; O2SAT 93
--- NOTE | 2024-11-11 05:11 | PC.NURSE ---
Shift note: Pt is doing well, Continue to pass gas. Active bowel sound in all 4 quadrants. However, abdomen felt hard and distended. Elevated Bp recorded but no fever. Pt walked 3x in the hallway this shift. She had adequate sleep.
[2024-11-11 06:25] LABS: Hematocrit 34.1 % (33.0-51.0); Hemoglobin* 11.2 gm/dL (12.0-16.0); Mean Corpuscular HGB Conc 33 gm/dL (32-36); Mean Corpuscular Hemoglobin 30 pg (26-34); Mean Corpuscular Volume 90 fL (80-100); Platelet Count* 292 K/uL (140-440); Red Blood Count 3.79 m/uL (4.00-5.20); White Blood Count* 5.79 K/uL (4.50-11.00)
[2024-11-11 06:39] LABS: Slide Review Reflex No
[2024-11-11 06:41] LABS: Chloride* 100 mmol/L (96-114); Potassium* 3.9 mmol/L (3.6-5.1); Sodium* 130 mmol/L (135-149)
[2024-11-11 06:44] LABS: Anion Gap 5 mEq/L (7-15); Blood Urea Nitrogen* 8 mg/dL (7-30); Carbon Dioxide* 25 mmol/L (20-32); Creatinine* 0.6 mg/dL (0.5-1.5); Est. Creatinine Clearance* 32.79; Estimated Glomerular Filt Rate 87 ml/min
[2024-11-11 06:45] LABS: Calcium* 9.1 mg/dL (8.4-10.6); Glucose* 95 mg/dL (60-115)
[2024-11-11] MEDS: LEVOTHYROXINE 75 MCG TABLET PO (06:53)
[2024-11-11 07:50] VITALS: BP 163/81; PULSE 81; RESP 18; TEMP 36.4; O2SAT 96
[2024-11-11] MEDS: SODIUM CHLORIDE 0.9 % (FLUSH) 10 ML SYRINGE 5 ML IVF (09:08)
[2024-11-11] MEDS: PANTOPRAZOLE SODIUM 40 MG INJ IVP (09:08)
[2024-11-11] MEDS: METOPROLOL TARTRATE 50 MG TABLET PO (09:08)
[2024-11-11 11:24] VITALS: BP 129/72; PULSE 73; RESP 18; TEMP 36.5; O2SAT 93
[2024-11-11] MEDS: CALCIUM CARBONATE 500 MG CHEW PO (11:28)
--- NOTE | 2024-11-11 11:35 | PM.GSPN ---
Subjective Subjective Date Seen: 11/11/24 Interval history: Patient feels much better this morning. She had 2 large BMs overnight. She still feels some distension and a lot of gas but denies any nausea. She is tolerating a regular diet. She is ambulating without difficulty and feels ready to go home. Exam Narrative: Exam Narrative: General: Alert and oriented, no acute distress Abdomen: Mild distention, soft and nontender. Active bowel sounds Const: Vital Signs, click to edit/add: Vital Signs - 24 hr 11/10/24 15:30 11/10/24 19:00 11/10/24 23:00 Temperature 98.1 F 97.3 F L Pulse Rate [Pulse Oximeter] 74 77 67 Respiratory Rate 18 18 18 Blood Pressure [Le ft Arm] Blood Pressure [Ri ght Arm] 170/91 H 162/84 H Pulse Oximetry 93 96 Oxygen Delivery Me thod Room Air Room Air 11/10/24 23:00 11/11/24 03:00 11/11/24 07:50 Temperature 97.7 F 98 F 97.6 F Pulse Rate [Pulse Oximeter] 61 69 81 Respiratory Rate 18 18 18 Blood Pressure [Le ft Arm] 163/81 H Blood Pressure [Ri ght Arm] 150/80 H 154/76 H Pulse Oximetry 93 93 96 Oxygen Delivery Me thod Room Air Room Air Room Air 11/11/24 11:24 Temperature 97.7 F Pulse Rate [Pulse Oximeter] 73 Respiratory Rate 18 Blood Pressure [Le ft Arm] 129/72 Blood Pressure [Ri ght Arm] Pulse Oximetry 93 Oxygen Delivery Me thod Room Air Progress Note:A&P Assessment and plan (1) Small bowel obstruction: Status: Acute Assessment and Plan: Patient with a now resolved small-bowel obstruction. Okay to discharge from a surgical perspective. Discussed with the patient recommendations for a soft, low-fiber diet at home. Would recommend that she take a daily laxative, senna 1 pill twice daily. She is scheduled to follow-up with her primary care provider on . Follow up with General surgery as needed.
--- NOTE | 2024-11-11 12:49 | PM.DS1 ---
DS: Providers Provider Date Seen: 11/11/24 Date of admission: 11/06/24 22:48 Primary care physician: Akila Cerda MD Admitting Clinician: Carolyn Canchola MD Consults: 11/07/24 06:00 Consult to Physician [CONS] Routine Comment: Consulting Provider: General Surgery, [facility] Has provider been notified: No Attending Physician on discharge: Jocelynn Panda MD DS: Diagnosis Discharge Diagnosis (1) Small bowel obstruction: Status: Acute Problem details: -recurrent, 5th occurrence since 2020, requiring 2 previous surgeries -total bili 1.0 direct bili, 0.6 AST 60, ALT 31, lipase 93, magnesium 1.9 - replaced with 2 g IV -NG placed 11/06/24 in ED, discontinued 11/08/2024 -11/08 tolerating clears, IVF d/c'd. -11/09 tolerating clears, only very small BM. Trialing po miralax and suppository today. -11/10 tolerating soft diet, cont laxatives -11/11 tolerating soft diet, cont senna only -pain and nausea management as needed -encourage ambulation -appreciate General surgery, Dr. Campbell's recommendations (2) Hypertension: Status: Chronic Problem details: -continue lisinopril and metoprolol (3) Hypothyroid: Status: Chronic Problem details: -continue Levothyroxine (4) Hyponatremia: Status: Chronic Problem details: -mild asymptomatic -sodium 130-133, stable, within baseline. 136 following NS hydration. - follow-up as an outpatient, primary care physician to repeat labs on next week. (5) Leukocytosis: Status: Resolved Problem details: -admission WBC was not collected. WBC from 11/07 is 16.13. More than likely reactionary. Remains afebrile, clinically improving. Will recheck this evening. Defer antibiotics at this time, discussed with General surgery, in agreement -11/08 resolved (6) ESTEFANY (acute kidney injury): Status: Resolved Problem details: - ESTEFANY on admission (Cr 0.9), baseline 0.5 (CKD stage 3b) - 11/08 Cr 0.6, baseline is 0.5, Cont IVF until taking adequate PO fluid, recheck BMP in am - 11/09 Cr @ baseline of 0.5 today. IVF stopped yesterday as patient was taking adequate PO fluid. (7) CKD (chronic kidney disease): Status: Chronic Problem details: - stage 3b, baseline CR 0.5 DS: Summary Hospital Course Hospital Course: Areli Lee is a 89 year old female past medical history significant for hypertension, atrial fibrillation, hypothyroidism, GERD, LBBB, recent SBO is admitted to the medical floor from the ED for recurrent small-bowel obstruction management. This is her 5th hospitalization for small-bowel obstructions in her lifetime. She 1st had an obstruction in 2020 which required lysis of adhesions and small-bowel resection. Later that year she was vacationing in [facility] and had another operative procedure. She had no further issues for about a year but then in November 2022 presented with a small-bowel obstruction which resolved with medical management. CT shows small-bowel obstruction with transition point in the midline lower abdomen near the anastomosis. NGT was placed. General surgery were consulted and they recommended conservative treatment. NG tube was clamped on the 2nd night and Patient has had return of bowel function and has been improving drastically. General surgeon is okay to discharge patient home on soft low-fiber fiber diet and on senna she will need to follow up with her primary care on and she is to follow up with General surgery only as needed. Patient has chronic hyponatremia, mild asymptomatic. She will need repeat of her sodium and other labs on as an outpatient with her PCP. Status at Discharge Functional status at discharge: independent ambulation Overall status at discharge: patient is progressing back to baseline Time Spent with Patient Time attestation: Total time spent providing and/or coordinating discharge services:40 min Exam Narrative: Exam Narrative: Physical exam GENERAL: Comfortable, no acute distress. HEAD AND NECK: Atraumatic, normocephalic CARDIOVASCULAR: RRR. Normal S1, S2. No murmurs. RESPIRATORY: Clear to auscultation B/L. Good air entry B/L. No wheezes or rhonchi. GASTROINTESTINAL: Not distended, not tender to palpation. NEUROLOGY: Alert, awake, oriented X 3. Normal speech. PSYCH: Normal mood, normal affect. Const: Vital Signs, click to edit/add: Vital Signs - 24 hr 11/10/24 15:30 11/10/24 19:00 11/10/24 23:00 Temperature 98.1 F 97.3 F L Pulse Rate [Pulse Oximeter] 74 77 67 Respiratory Rate 18 18 18 Blood Pressure [Le ft Arm] Blood Pressure [Ri ght Arm] 170/91 H 162/84 H Pulse Oximetry 93 96 Oxygen Delivery Me thod Room Air Room Air 11/10/24 23:00 11/11/24 03:00 11/11/24 07:50 Temperature 97.7 F 98 F 97.6 F Pulse Rate [Pulse Oximeter] 61 69 81 Respiratory Rate 18 18 18 Blood Pressure [Le ft Arm] 163/81 H Blood Pressure [Ri ght Arm] 150/80 H 154/76 H Pulse Oximetry 93 93 96 Oxygen Delivery Me thod Room Air Room Air Room Air 11/11/24 11:24 Temperature 97.7 F Pulse Rate [Pulse Oximeter] 73 Respiratory Rate 18 Blood Pressure [Le ft Arm] 129/72 Blood Pressure [Ri ght Arm] Pulse Oximetry 93 Oxygen Delivery Me thod Room Air DS: Data Data Completed and Pending Completed studies during hospitalization: Procedures Drainage of Stomach with Drainage Device, Via Natural or Artificial Opening (10/28/24) Labs on day of discharge: Labs from last 24 hours 11/11/24 05:58 WBC 5.79 RBC 3.79 L Hgb 11.2 L Hct 34.1 MCV 90 MCH 30 MCHC 33 Plt Count 292 Sodium 130 L Potassium 3.9 Chloride 100 Carbon Dioxide 25 Anion Gap 5 L BUN 8 Creatinine 0.6 Estimated Creat Clear 32.79 Estimated GFR 87 Glucose 95 Calcium 9.1 Discharge Plan Discharge Disposition: Home, Self-Care Date of Admission: 11/06/24 22:48 Attending Provider on Discharge: Jocelynn Panda Consulting Providers: Nay Campbell; Bobby Cunningham; Nevaeh Flores Primary Care Provider: Akila Cerda Condition: Improved Anticipated Discharge Date/Time: 11/11/24 12:37 Discharge Medications: New senna 8.6 mg capsule 8.6 mg PO DAILY Qty: 10 0RF Continued omega 0-dga-tqc-fish oil [Fish Oil] 60-90-500 mg capsule 1 cap PO BID naproxen 250 mg tablet 250 mg PO BID PRN calcium carbonate [Calcium 500] 500 mg calcium (1,250 mg) tablet,chewable 500 mg PO DAILY levothyroxine 75 mcg tablet 75 mcg PO DAILY metoprolol tartrate 50 mg tablet 50 mg PO BID lisinopril 5 mg tablet 5 mg PO HS cetirizine 10 mg tablet 10 mg PO DAILY PRN multivitamin Tablet 1 tab PO DAILY melatonin 5 mg capsule 5 mg PO HS PRN acetaminophen 500 mg capsule 500 - 1,000 mg PO Q6H MDD 3000mg PRN Discharge Orders: Discharge Order (Routine); Ordered 11/11/24 Ordered By: Jocelynn Panda Patient Education: Senna (By mouth), Bowel Obstruction (IP) Additional Instructions: -general surgery wants you to continue on soft low-fiber diet. Use senna as a laxative but not other types of laxatives that can be with high-fiber content. -you need to follow-up with your primary care physician as discussed today. -your sodium is mildly low, it is a chronic problem and I do not think that you need treatment for that at this moment but I would like your primary care physician to repeat labs for you on next week. -doctor: Your general surgeon states that you can follow-up as needed with her clinic. Activity Level: Activity as Tolerated Discharge Diet: Low Fiber Follow Up Appointments: Akila Cerda MD [Primary Care Provider] - Forms: [employer] Info Instructions
== END 2024-11-11 14:30 | disposition home or self-care (01) | DRG 389 ==
LOC: ED 21:28 → MEDSURG 21:30
PROVIDERS: Admitting Provider Physician Assistant; Emergency Provider Family Medicine; PCP Family Medicine; Visit Provider Family Medicine
DX: K56.609 Unspecified intestinal obstruction, unspecified as to partial versus complete obstruction (principal); E87.1 Hypo-osmolality and hyponatremia; N17.9 Acute kidney failure, unspecified; E03.9 Hypothyroidism, unspecified; I48.91 Unspecified atrial fibrillation; K21.9 Gastro-esophageal reflux disease without esophagitis; D72.829 Elevated white blood cell count, unspecified; I12.9 Hypertensive chronic kidney disease with stage 1 through stage 4 chronic kidney disease, or unspecified chronic kidney disease; N18.32 Chronic kidney disease, stage 3b; I44.7 Left bundle-branch block, unspecified; Z96.651 Presence of right artificial knee joint; Z96.652 Presence of left artificial knee joint; Z96.612 Presence of left artificial shoulder joint; Z96.611 Presence of right artificial shoulder joint
CPT/HCPCS: 43752; 36415; 74018; 74176; 80048; 80076; 83690; 83735; 85025; 85027; 99285; A9270; J1650; J2270; J2405; J2470; J3475; J7030

== ENCOUNTER 2024-12-17 09:23 | Outpatient (CLI) | payer MEDICARE, BC, SELFPAY | END 2024-12-17 09:24 | disposition home or self-care (01) | LOC: NFLDREF 12-19 02:16 | PROVIDERS: PCP Family Medicine; Referring Provider Family Medicine | DX: N30.01 Acute cystitis with hematuria (principal); N39.0 Urinary tract infection, site not specified | CPT/HCPCS: 87086; 87186 ==

== ENCOUNTER 2025-02-11 16:31 | Inpatient (IN) | payer MEDICARE, BC, SELFPAY ==
--- OUTSIDE RECORDS SUMMARY | 2025-02-11 16:34 | XMS_ITS | Clinical Summary ---
Author Organization [facility] Address [address] [place] [id number] Care Team Providers Care Photo Printer Name Role Phone Kathleen Gorman MD Unavailable Unavailable Janay Garcia Magda Unavailable [phone] Akila Cerda MD Primary Care Prov ider Allergies Active Allergy Reactions Criticality Noted Date Comments Cats (Fur, Dander, Saliva) Wheezing 8 Medications multivitamin (MVI) tablet Take 1 tablet by mouth once daily. 0 04/24/20 10 Active omega-3 fatty acids-vitamin E (FISH OIL) 1,000 mg Cap Take by mouth. 0 04/24/20 10 Active calcium carbonate-vitamin D2, 500 mg-200 units, (OS-IRIS 500 + D) 500 mg(1,250mg) -200 unit tablet Take 1 tablet by mouth once daily with a meal. 0 06/13/20 13 Active acetaminophen (TYLENOL EXTRA STRGTH) 500 mg tablet Take 1 tablet by mouth every 6 hours if needed. Max acetaminophen dose: 4000mg in 24 hrs. 0 08/13/20 13 Active cetirizine (ZYRTEC) 10 mg tabletIndications :Environmental allergies Take 1 tablet by mouth once daily. 90 tablet 3 07/28/20 18 Active melatonin 5 mg capsule Take 1 Capsule (5 mg) by mouth at bedtime. 0 08/18/20 21 Active vit C-vit Z-ntypmr-suipvwmn -omega (OCUVITE) 250-5-1 mg Take 1 Capsule by mouth once daily. 0 07/26/20 23 Active naproxen (ALEVE) 220 mg tablet Take 2 Tablets (440 mg) by mouth once daily. 0 07/26/20 23 Active levothyroxine (SYNTHROID) 75 mcg tabletIndications :Acquired hypothyroidism Take 1 Tablet (75 mcg) by mouth before breakfast. HOLD until patient calls 90 Tablet 3 12/13/19 25 Active lisinopriL (PRINIVIL; ZESTRIL) 5 mg tabletIndications :HTN (hypertension) Take 1.5 Tablets (7.5 mg) by mouth once daily. HOLD until patient calls 145 Tablet 3 12/13/19 25 Active metoprolol tartrate (LOPRESSOR) 50 mg tabletIndications :Atrial fibrillation, unspecified type (HC) Take 1 Tablet (50 mg) by mouth two times daily. HOLD until patient calls 180 Tablet 3 12/13/19 25 Active cyclobenzaprine (FLEXERIL) 10 mg tabletIndications :Back pain without radiation Take 1 Tablet (10 mg) by mouth 3 times daily if needed for Muscle Spasm. 20 Tablet 1 01/23/20 25 Active MAGNESIUM GLYCINATE ORAL Take by mouth. Active cyclobenzaprine (FLEXERIL) 10 mg tabletIndications :Back pain without radiation Take 1 Tablet (10 mg) by mouth 3 times daily if needed for Muscle Spasm. 20 Tablet 1 01/23/20 25 025 Discontin ued(*Medi cation adjustmen t) Active Problems Problem Noted Date Diagnosed Date History of small bowel obstruction 01/23/2025 Chronic hyponatremia 11/15/2023 Anemia 11/14/2023 History of reverse total rep lacement of right shoulder joint 11/14/2023 Hypertension 11/14/2023 Steatosis of liver 11/14/2023 Tendinitis involving right hip abductors 023 DDD (degenerative disc disease), lumbar 02/07/20 Overview (02/06/2023): Nov 2022 Epidural steroid injection helpful for right hip/leg symptoms. DDD (degenerative disc disease), thoracic 2022 Overview (02/06/2023): ~ December 2022: T12-L1 epidural steroid injection by Dr. William: did not help ym. Sinus tachycardia 09/21/2021 Compression fracture of body of thoracic vertebr a 09/07/2021 Overview (09/07/2021): Found on [facility] at [facility] 07/21/21 T10, T11, L1 on CT for abdomen Osteoarthritis of left shoulder 07/31/2014 Unspecified Osteoporosis 04/08/2008 Overview (09/09/2022): Osteopenia. t score -2.0 in spine in 2006, hips normal. Previously on fosamax. Off since 2006 dexa 04/2011, overall stable. Worst score -1.9 Consider recheck in 3-5 years. Mary Carrion M.D. 05/22/2012 11:24 AM Stable osteopenia 07/2018 recheck 3-5 yrs Second drug holiday started August 29, 2022. Osteoarthrosis, unspecified whether generalized or localized, lower leg 04/08/2008 Overview (04/08/2008): Sees ismael for injections. Sensorineural hearing loss, bilateral 04/08/2008 Dermatophytosis of nail 10/16/2007 Unspecified hypothyroidism 04/08/2007 Resolved Problems Problem Noted Date Diagnosed Date Resolved Date Routine adult health maintenance 08/24/2016 11/14/2023 Overview (08/24/2016): Colonoscopy 07/2016 diverticuli, no follow up needed Atrial fibrillation 06/13/2013 04/20/20 22 Overview (07/31/2014): Brief episode. No current problems. Skin lesion of face 05/23/2013 07/31/20 14 Encounters Date Type Department Care Team Description 01/24/2025 9:00 AM CIVIL PREPAREDNESS TRAINING OFFICER Office Visit [facility] [address] [facility] [place] [address] Martínez Rojas MD Consult (Bowel obstructions - 2 surgeries & 3 hospitalizations recently, low fiber diet - how long, fluid intake) 01/23/2025 8:15 AM CIVIL PREPAREDNESS TRAINING OFFICER Office Visit [facility] [address] [place] [address] Akila Cerda MD Blood Pressure (Increased Lisinopril) 01/23/2025 Travel 01/15/2025 9:00 AM CIVIL PREPAREDNESS TRAINING OFFICER Procedure Only [facility] [address] [place] [facility] [place] [address] Marya Delaney L Ac Acupuncture 01/15/2025 Travel 01/07/2025 2:00 PM CIVIL PREPAREDNESS TRAINING OFFICER Procedure Only [facility] [address] [facility] [place] [address] Marya Delaney L Ac Acupuncture 01/07/2025 Travel 12/25/2024 1:00 PM CIVIL PREPAREDNESS TRAINING OFFICER Procedure Only [facility] [address] [place] [address] Marya Delaney L Ac Acupuncture (Initial) 12/25/2024 Travel 12/13/2024 9:00 AM CIVIL PREPAREDNESS TRAINING OFFICER Office Visit [facility] [address] [place] [address] Akila Cerda MD Medicare ANNUAL (subsequent) Visit (89 yo female) 12/13/2024 Travel 11/19/2024 Orders Only [facility] [address] [place] [address] Akila Cerda MD Lab (Recheck Sodium level in 2-4 weeks (se... 11/15/2024 11:05 AM CIVIL PREPAREDNESS TRAINING OFFICER Office Visit [facility] [address] [place] [address] Akila Cerda MD Hospital F/U 11/15/2024 Travel from Last 3 Months Immunizations Immunization Administration Dates Next Due AMB INFLUENZA IIV3 (AGE 65+ YRS) PF (Flu Clinic Only) 09/12/2019,08/25/2017 AMB Influenza, IIV3 (Age >=3 years)(Flu Clinic Only) 09/06/2013,09/27/2012,09/22/2011,09/16,09/19/2009 Amb Influenza, Inact (High-d ose) (Flu Clinic Only) 09/05/2015 COVID-19 VACCINE SPIKEVAX (M ODERNA 50MCG/0.5ML) 12YO+ PFS 09/07/2024,10/13/2023 COVID-19 vaccine (LevelUpBio NTech 30mcg/0.3mL) 12YO+ BIVALENT PF, MDV 04/19/2023,09/09/2022 COVID-19 vaccine (Lernstift NTech 30mcg/0.3mL) 12YO+ KAROLINA-SUCROSE PF, MDV 03/22/2022 COVID-19 vaccine (Lernstift NTech 30mcg/0.3mL) PF, MDV 09/03/2021,01/31/2021,01/10/2021 Hepatitis A (Adult) 05/18/2004,11/04/2003 Hepatitis B (Adult) 04/28/1990,12/29/1989,1989 Influenza A (H1N1), Inactivated 03/16/2010 Influenza A (H1N1), Inactiva gail (Age >=3 Years) 03/16/2010 Influenza, High-dose Inactivated 08/20/2016,090 01/2014 Influenza, IIV3 (Age 6-35 mos) 09/22/2011 Influenza, IIV3 (Age >=3 years) 09/20/2008,10/07,11/16/2006 Influenza, Inactivated AIIV4 (Age 65+ Years) Preserv Free 09/05/2023,09/09/2022,09/07/2021,09/02 Influenza, Inactivated IIV3 (Age 65+ Years) Preserv Free 10/20/2024,09/27/2018 Pneumococcal Poly,23-Valent (Pneumovax) 11/04/2003 Pneumococcal conj 13-Valent (Prevnar 13) 02/26/2015 Pneumococcal, Unspecified 08/28/2003 RSV, Recombinant ADJ Reconst ituted (Arexvy 120MCG/0.5mL) 08/20/2024 Td (Age >=7 Years) 11/04/2003 Tdap 06/11/2023,05/07/2011 Yellow Fever 11/04/2003 Zoster (Shingrix-RZV, recombinant) 03/31/2020, Zoster (Zostavax-ZVL, live) 05/07/2011 Family History Medical History Relation Name Comments Good Health Brother Good Health Daughter 1 Good Health Daughter 2 Ngozi Heart Disease Father CHF Cancer-breast Mother in 80,s then a gain in 90's Other Mother copd Cancer-breast Other niece had stag e 3 at age 40 Good Health Sister 1 Good Health Sister 2 Cancer-colon Son 1 Camacho age 49 Good Health Son 2 Relation Name Status Comments Brother Daughter 1 Daughter 2 Ngozi Alive Father Mother Other Sister 1 Sister 2 Alive Son 1 Camacho Son 2 Social History Tobacco Use Types Packs/Day Years Used Date Smoking Tobacco: Former Cigarettes 0.5 10 0 11/28/1970 - 11/28/1980 Smokeless Tobacco: Never Tobacco Cessation:Counseling Given: Yes Alcohol Use Standard Drinks/Week Comments Yes 0 (1 standard drink = 0.6 oz pur e alcohol) 1 glass of wine per day PHQ-2 Answer Date Recorded PHQ-2 TOTAL SCORE 0 12/13/2024 Social Connections Answer Date Recorded Do you often feel lonely or isolated from those around you? 0 12/13/2024 Financial Resource Strain Answer Date R ecorded Difficulty of Paying Living Expenses 3 12/13/2024 Difficulty of Paying Living Expenses Not on file 12/13/2024 Food Insecurity Answer Date Recorded Do you worry your food will run out before you are able to buy more? 1 12/13/2024 Transportation Needs Answer Date Record ed Does lack of transportation keep you from medica l appointments? 1 12/13/2024 Does lack of transportation keep you from work, meetings or getting things that you need? 1 12/13/2024 Housing Stability Answer Date Recorded What is your housing situation today? 1 12/13/2024 Utilities Answer Date Recorded Do you have trouble paying f or utilities (for example, heat, electricity, water, phone)? 1 12/13/2024 Comments No Sex and Gender Information Value Date Recorded Sex Assigned at Not on file Legal Sex Female 6:18 AM CIVIL PREPAREDNESS TRAINING OFFICER Gender Identity Not on file Sexual Orientation Not on file Occupation Industry Job Start Date Job End Date Retired Not on file Not on file Not on file Obstetrics History Para Term AB IAB SAB Ectopic Multiple Livin g Live Births 4 4 4 4 4 Date Outcome GA Total Labor Labor/2nd/3rd Weight Sex Type Anes PTL Dena A1 A5 Name Clin Term Vag Living Term Vag Living Term Vag Living Term Vag Living Last Filed Vital Signs Vital Sign Reading Time Taken Comments Blood Pressure 146/67 01/24/2025 9:05 AM CIVIL PREPAREDNESS TRAINING OFFICER Pulse 69 01/24/2025 9:05 AM CIVIL PREPAREDNESS TRAINING OFFICER Temperature 36.6 C (97.9 F) 11/12/2022 10:16 AM CIVIL PREPAREDNESS TRAINING OFFICER Respiratory Rate 18 08/18/2021 8:28 AM CDT Oxygen Saturation 97% 01/24/2025 9:05 AM CIVIL PREPAREDNESS TRAINING OFFICER Inhaled Oxygen Concentration - - Weight 57.2 kg (126 lb 3.2 oz) 01/24/2025 9:05 A M CIVIL PREPAREDNESS TRAINING OFFICER Height 160 cm (5' 3) 12/13/2024 9:06 AM CIVIL PREPAREDNESS TRAINING OFFICER Body Mass Index 22.36 12/13/2024 9:06 AM CIVIL PREPAREDNESS TRAINING OFFICER Plan of Treatment Health Maintenance Due Date Last Done Comments COVID-19 vaccine series ( season) 2025 09/07/2024, 10/13/2023, 04/19/2023, Additional history exists BMI (ht and wt on same day) for age 18+ 12/13/2025 12/13/2024, 11/15/2024, 11/14/2023, Additional history exists Depression screening for age 12+ 12/13/2025 12/13/2024, 11/14/2023, 09/09/2022, Additional history exists Medicare Wellness for age 65+ 12/14/2025, 11/14/2023, 09/09/2022, Additional history exists Tetanus booster 06/11/2033 06/11/2023, 04/28, 11/04/2003 Pneumococcal series for age 50+ Completed 02/26/2015, 11/04/2003, 08/28/2003 Zoster (shingles) series for age 50+ Completed 03/31/2020, 12/04/2019, 05/07/2011 DEXA/DXA scan for age 65+ Completed 2020, 08/15/2018, 08/05/2016, Additional history exists Tdap Completed 06/11/2023, 05/07/2011 RSV vaccine for adults or Completed 08/20/2024 Influenza Vaccine Completed 10/20/2024, , 09/09/2022, Additional history exists Procedures Procedure Name Priority Date/Time Associated Diagnosis Comments TSH Routine 12/13/2024 10:21 AM CIVIL PREPAREDNESS TRAINING OFFICER Acquired hypothyroidism BASIC METABOLIC PANEL Routine 12/13/2024 10:21 AM CIVIL PREPAREDNESS TRAINING OFFICER HTN (hypertension) BASIC METABOLIC PANEL Routine 11/15/2024 12:29 PM CIVIL PREPAREDNESS TRAINING OFFICER Hyponatremia XR DXA BONE DENSITY 2 SITES AXIAL Routine 08/18/2021 9:54 AM CDT Osteoporosis, unspecified osteoporosis type, unspecified pathological fracture presence from Last 3 Months or Most Recently Relevant to Health Maintenance Results * TSH (12/13/2024 10:21 AM CIVIL PREPAREDNESS TRAINING OFFICER) TSH 0.40 0.40 - 4.50 mIU/L [facility] Blood BLOOD SPECIMEN / Unknown 12/13/2024 10:21 AM CIVIL PREPAREDNESS TRAINING OFFICER 12/13/2024 10:21 AM CIVIL PREPAREDNESS TRAINING OFFICER Akila Cerda MD CHEMISTRY Fi nal Result [employer] [facility] [address] [place] [address], [facility] [address] [place] [address] * (ABNORMAL) BASIC METABOLIC PANEL (12/13/2024 10:21 AM CIVIL PREPAREDNESS TRAINING OFFICER) Only the most recent of2 resultswithin the time period is included. GLUCOSE 91 65 - 99 mg/dL [facility] Comment: Fasting reference interval UREA NITROGEN (BUN) 27(H) 7 - 25 mg/dL [facility] CREATININE 0.84 0.60 - 0.95 mg/dL [facility] EGFR 67 > OR = 60 mL/min/1.7 3m2 [facility] BUN/CREATININE RATIO 32(H) 6 - 22 (calc) [facility] SODIUM 133(L) 135 - 146 mmol/L [facility] POTASSIUM 5.5(H) 3.5 - 5.3 mmol/L [facility] CHLORIDE 97(L) 98 - 110 mmol/L [facility] CARBON DIOXIDE 26 20 - 32 mmol/L [facility] ELECTROLYTE BALANCE 10 7 - 17 mmol/L (calc) [facility] CALCIUM 10.2 8.6 - 10.4 mg/dL [facility] Blood BLOOD SPECIMEN / Unknown 12/13/2024 10:21 AM CIVIL PREPAREDNESS TRAINING OFFICER 12/13/2024 10:21 AM CIVIL PREPAREDNESS TRAINING OFFICER Akila Cerda MD CHEMISTRY Fi nal Result [employer] [facility] [address] [place] [address], [facility] [address] [place] [address] * (ABNORMAL) XR DXA BONE DENSITY 2 SITES AXIAL (08/18/2021 9:54 AM CDT) Anatomical Region Laterality Modality Spine, HIPS, HIPL, HIPR Other Impressions 08/24/2021 8:02 PM CDT Osteopenia. Consider a drug holiday from bisphosphonates if indicated. RECOMMENDATIONS: The National Osteoporosis Foundation recommends pharmacologic treatment for patients with T-scores of -2.5 or less, patients with prior history of fragility fractures, or patients with 10-year probability of greater than 3% at hips or greater than 20% of suffering major osteoporotic fractures. Recommend continued optimization of calcium and vitamin D intake through dietary means and/or supplementation and regular exercise. Repeat scan recommended in 3-5 years. Xenia Shannon PA-C Narrative 08/24/2021 8:02 PM CDT For Patients: Results are automatically released to your [employer] account once available, in compliance with federal regulations. This means that you may see your results before your provider has had a chance to review them. Please allow 2-3 business days for your provider to comment on the results. XR DXA Bone Mineral Density (BMD) EXAM LOCATION: [address] [address] PATIENT NAME: Areli Lee DATE OF : 1935 EXAM DATE: 08/18/2021 REQUESTING PROVIDER: Akila Cerda MD GENDER AT : female HEIGHT: 5' 3.75 (08/18/2021) WEIGHT: 126 lb (08/18/2021) MENOPAUSAL STATUS: Postmenopausal RACE/ETHNICITY: White RISK FACTORS: Family History of Osteoporosis and Smoking (prior) CURRENT MEDICATION FOR BONE LOSS: Alendronate (Fosamax) INDICATION: Follow-up of existing osteoporosis COMPARISON DATE(S): 2018 DXA scans are compared to prior studies for a patient only when the two (or more) studies were performed on the same scanner. It is not possible to compare data generated on one scanner to data from another because there are not standards in DXA equipment. This applies even if the two scanners are made by the same air moving technician. PROCEDURE: Dual-energy x-ray absorptiometry performed with routine technique. Reporting is completed in the form of a T-score. The T-score represents the standard deviation from peak bone mass based on young healthy adult. A Z-score is used for diagnosis in premenopausal women, and for men under the age of 50. FINDINGS: RESULT LUMBAR SPINE L3 - L4 BMD: 1.044 g/cm2 T-Score: - 1.3 Z-Score: + 0.9 Change from prior: in 2018: Increase 5.6%. RESULTS FEMUR Left femoral neck BMD: 0.831 g/cm2 T-Score: - 1.5 Z-Score: + 1.0 Change from prior: in 2018: Increase 2.6%. Right femoral neck BMD: 0.806 g/cm2 T-Score: - 1.7 Z-Score: + 0.8 Change from prior: in 2018: Increase 1.1%. Left hip BMD: 0.932 g/cm2 T-Score: - 0.6 Z-Score: + 1.8 Change from prior: in 2018: Increase 2.1%. Right hip BMD: 0.919 g/cm2 T-Score: - 0.7 Z-Score: + 1.7 Change from prior: in 2018: Increase 1.5%. WHO criteria: Normal: T-score at or above -1 SD Osteopenia: T-score between -1.1 and -2.4 SD Osteoporosis: T-score at or below -2.5 SD Akila Cerda MD DEXA Fi nal Result from Last 3 Months or Most Recently Relevant to Health Maintenance Insurance [facility] ONLY MEDICARE PART B HB ONLY [facility] MEDICARE PROVIDER BASED Advance Directives Documents on File Type Date Recorded Patient Returned Telephone Equipment Appraiser Expl anation Healthcare Directive 09/10/2021 2:29 PM H EALTHCARE DIRECTIVE, , 11/19/99 Care Teams Photo Printer Relationship Specialty Start Date End Date Akila Cerda MD [address] [place] [address] PCP - General Family Practice 04/07/18 Kathleen Gorman MD Surgery - Orthopedics 05/22/12 Janay Garcia AuD Audiology 09/22/07
[2025-02-11 17:31] VITALS: BP 179/80; PULSE 89; RESP 16; TEMP 36.6; O2SAT 94; BMI 21.8
--- NOTE | 2025-02-11 20:29 | CRLHL7_ITS ---
For Patients: As a result of the Century Cures Act, medical imaging exams and procedure reports are released immediately into your electronic medical record. You may view this report before your referring provider. If you have questions, please contact your health care provider. INDICATION: Abdominal pain TECHNIQUE: Abdomen Pelvis radiograph 3 views COMPARISON: 11/06/2024 FINDINGS: Bowel: Gas-filled and dilated small bowel and colonic loops are noted with the small bowel measuring up to 4.5 cm. Scattered air-fluid levels are noted. Soft tissue: No evidence of pneumoperitoneum present. No suspicious calcifications noted. Bone: Unremarkable for age. IMPRESSION: 1. Gas-filled and dilated small bowel and colonic loops are noted with the small bowel measuring up to 4.5 cm. Scattered air-fluid levels are noted. Findings are suspicious for small bowel obstruction and can be better characterized by CT. Dictated by Jose Guadalupe Fontanez MD @ 02/11/2025 10:02:19 PM Dictated by: Jose Guadalupe Fontanez MD @ 02/11/2025 22:02:32 (Electronically Signed)
--- NOTE | 2025-02-11 20:30 | ED_ITS ---
HPI - Abdominal Pain General Chief Complaint: Abdominal Pain Stated Complaint: Abdominal pain Time Seen by Provider: 02/11/25 20:23 History of Present Illness HPI narrative: This 89-year-old female comes in with some abdominal discomfort that began yesterday afternoon. She does have a history of bowel obstruction and states that the symptoms feel similar. She has had previous surgery to her abdomen. She reports distended abdomen with some episodes of burping and vomiting. She has had some small bowel movement yesterday but nothing today and reports that she is not passing gas today. Related Data Home Medications ?Medication ?Instructions ?Recorded ?Confirmed cetirizine 10 mg tablet 10 mg PO DAILY PRN 08/05/22 02/11/25 levothyroxine 75 mcg tablet 75 mcg PO DAILY 08/05/22 02/11/25 lisinopril 5 mg tablet 7.5 mg PO HS 08/05/22 02/11/25 metoprolol tartrate 50 mg tablet 50 mg PO BID 08/05/22 02/11/25 multivitamin 1 tab PO DAILY 08/05/22 02/11/25 naproxen 250 mg tablet 250 mg PO BID PRN 04/12/23 02/11/25 omega 5-tgh-mtd-fish oil 60 mg-90 1 cap PO BID 04/12/23 02/11/25 mg-500 mg capsule (Fish Oil) calcium carbonate (Calcium 500) 500 mg PO DAILY 09/23/23 02/11/25 acetaminophen 500 mg capsule 500 - 1,000 mg PO Q6H PRN 10/28/24 02/11/25 Previous Rx's ?Medication ?Instructions ?Recorded sennosides 8.6 mg capsule (senna) 8.6 mg PO DAILY #10 caps 11/11/24 Allergies Allergy/AdvReac Type Severity Reaction Status Date / Time cat dander Allergy Verified 02/11/25 17:41 perfume Allergy Verified 02/11/25 17:41 Review of Systems Status of ROS Reports: 10 or more systems reviewed and unremarkable except as noted in History and below Narrative Constitutional: No fevers, no weight gain or loss. Eyes: No discharge. No vision changes. HENT: No congestion, no sore throat, no ear pain. Cardiovascular: No chest pain, no palpitations. Respiratory: No shortness of breath, no wheezes, no cough. Gastrointestinal: Abdominal pain with some nausea, vomiting, and burping. Genitourinary: No dysuria, no hematuria. Musculoskeletal: Normal range of motion. Skin: No rashes, no pruritis. Neurological: No dizziness, weakness, sensory change, speech change. Endo/Heme/Allergies: No bruising or bleeding. No polydipsia. Pysch: no suicidality, no anxiety, no insomnia. All other systems reviewed and are negative. PFSH [facility] Medical History CKD (chronic kidney disease) ?N18.9 - Chronic kidney disease, unspecified (ICD-10) Partial hamstring tear ?S76.319A - Strain of muscle, fascia and tendon of the posterior muscle group at thigh level, unspecified thigh, initial encounter (ICD-10) Right hip impingement syndrome ?M25.851 - Other specified joint disorders, right hip (ICD-10) Hypertension ?I10 - Essential (primary) hypertension (ICD-10) Left bundle branch block ?I44.7 - Left bundle-branch block, unspecified (ICD-10) Small bowel obstruction ?K56.609 - Unspecified intestinal obstruction, unspecified as to partial versus complete obstruction (ICD-10) Postoperative ileus ?K91.89 - Other postprocedural complications and disorders of digestive system (ICD-10) ?K56.7 - Ileus, unspecified (ICD-10) Postoperative hypoxia ?R09.02 - Hypoxemia (ICD-10) ?Z98.890 - Other specified postprocedural states (ICD-10) Anemia following surgery ?D64.9 - Anemia, unspecified (ICD-10) Strain of right hip ?S76.011A - Strain of muscle, fascia and tendon of right hip, initial encounter (ICD-10) Sigmoid diverticulosis ?K57.30 - Diverticulosis of large intestine without perforation or abscess without bleeding (ICD-10) Arthritis ?M19.90 - Unspecified osteoarthritis, unspecified site (ICD-10) GERD (gastroesophageal reflux disease) ?K21.9 - Gastro-esophageal reflux disease without esophagitis (ICD-10) Atrial fibrillation ?I48.91 - Unspecified atrial fibrillation (ICD-10) Hypothyroid ?E03.9 - Hypothyroidism, unspecified (ICD-10) Surgical History S/P laparotomy with lysis of adhesions ?Z98.890 - Other specified postprocedural states (ICD-10) 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) ?Z98.890 - Other specified postprocedural states (ICD-10) History of ankle surgery (12/04/92) ?Z98.890 - Other specified postprocedural states (ICD-10) 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 She lives in [place] with her . She does not smoke. She drinks 1 glass of wine a day. What is your current living situation?: I presently have a place to live Problems where you live: no known problems Problems where you live details: n/a In the past 12 months, utilities in danger of being shut off: no In past 12 months, lack of transportation kept you from medical appts, meetings, work, or getting things needed for daily living: no In the past 12 mos, have been you worried that your food would run out before you had money to buy more?: never true In the past 12 mos, the food you bought just didn't last and you didn't have mo [place] to buy more?: never true Highest level of school completed/degree received: Associate degree: occupational, technical, vocational program Smoking Status: Former smoker What tobacco products do you use: cigarettes Smoking quit date/years: >15 years ago Do you use any of these nicotine containing products: None Second hand tobacco smoke exposure: No How often do you have a drink containing alcohol: 4 or more times a week Alcohol type: wine Alcohol type details: daily glass of wine with dinner How many standard drinks containing alcohol do you have on a typical day: 1 or 2 How often do you have six or more drinks on one occasion: Never AUDIT-C Alcohol total score: 4 Non-prescribed substance use: denies use Caffeine: Yes How often does anyone, including family, friends and others, physically hurt you : never How often does anyone, including family, friends and others, insult or talk down to you: never How often does anyone, including family, friends and others, threaten you with harm: never How often does anyone, including family, friends and others, scream or curse at you: never service: No Exam Narrative: Exam Narrative: Constitutional: Well-developed, well-nourished, no acute distress. HEENT: Normocephalic, atraumatic. Neck: Normal range of motion. Nontender. Supple. Heart: Regular. No murmurs. Normal rate. Intact distal pulses. Lungs: Clear to auscultation. No chest discomfort. No wheezes, rhonchi, or rales. Abdomen: Distended abdomen with some high-pitched bowel sounds. Genitalia: Deferred. Back: No midline tenderness. Normal range of motion. Extremities: Normal range of motion. No injury. Skin: Intact. No rash. Warm. No erythema or pallor. Neurologic: No altered sensation. No weakness. Alert and oriented. Psychiatric: No suicidality. No anxiety or depression. No insomnia. Nursing notes and vitals signs are reviewed. Const: Vital Signs, click to edit/add: Vital Signs - 24 hr 02/11/25 17:31 Temperature 97.9 F Pulse Rate [Pulse Oximeter] 89 Respiratory Rate 16 Blood Pressure [Ri ght Upper Arm] 179/80 H Pulse Oximetry 94 Oxygen Delivery Me thod Room Air Course Vital Signs Vital signs: Initial Vital Signs Temperature 97.9 F 02/11/25 17:31 Temperature Source Temporal Artery Scan 02/11/25 17:31 Pulse Rate 89 02/11/25 17:31 Respiratory Rate 16 02/11/25 17:31 Blood Pressure 179/80 H 02/11/25 17:31 Blood Pressure Mean 113 H 02/11/25 17:31 Blood Pressure Position Sitting 02/11/25 17:31 Pulse Oximetry 94 02/11/25 17:31 Oxygen Delivery Method Room Air 02/11/25 17:31 Vital Signs Temperature 97.9 F 02/11/25 17:31 Pulse Rate 89 02/11/25 17:31 Respiratory Rate 16 02/11/25 17:31 Blood Pressure 179/80 H 02/11/25 17:31 Pulse Oximetry 94 02/11/25 17:31 Oxygen Delivery Method Room Air 02/11/25 17:31 Temperature 97.9 F 02/11/25 17:31 Pulse Rate 89 02/11/25 17:31 Respiratory Rate 16 02/11/25 17:31 Blood Pressure 179/80 H 02/11/25 17:31 Pulse Oximetry 94 02/11/25 17:31 Oxygen Delivery Method Room Air 02/11/25 17:31 Medications Administered Medications: Discontinued Medications Generic Name Dose Route Start Last Admin Trade Name Freq PRN Reason Stop Dose Admin Metoprolol Tartrate 50 mg 02/11/25 20:29 02/11/25 20:39 Metoprolol Tartrate 50 Mg Tablet PO 02/11/25 20:30 50 mg ONCE ONE Administration MDM - Abdominal Pain MDM Narrative Medical decision making narrative: This patient comes in with symptoms suspicious of a bowel obstruction. X-ray of the abdomen is obtained and by my review does show clear evidence of multiple air-fluid levels suggesting bowel obstruction. I did speak with the hospitalist on-call who agrees to her admission. A CT scan was ordered here but the patient will be able to go to the floor before or after that is done regardless. She received IV fluids and a dose of Dilaudid 0.2 mg and Zofran 4 mg. Discharge Plan Discharge Clinical Impression: Bowel obstruction Patient Disposition: Admitted As Observation Condition: Unchanged Prescriptions: No Action omega 7-veq-gxr-fish oil [Fish Oil] 60-90-500 mg capsule 1 cap PO BID naproxen 250 mg tablet 250 mg PO BID PRN calcium carbonate [Calcium 500] 500 mg calcium (1,250 mg) tablet,chewable 500 mg PO DAILY levothyroxine 75 mcg tablet 75 mcg PO DAILY metoprolol tartrate 50 mg tablet 50 mg PO BID lisinopril 5 mg tablet 7.5 mg PO HS cetirizine 10 mg tablet 10 mg PO DAILY PRN multivitamin Tablet 1 tab PO DAILY acetaminophen 500 mg capsule 500 - 1,000 mg PO Q6H MDD 3000mg PRN senna 8.6 mg capsule 8.6 mg PO DAILY Qty: 10 0RF Follow Up/Referrals: Akila Cerda MD [Primary Care Provider] -
--- OUTSIDE RECORDS SUMMARY | 2025-02-11 20:35 | XMS_ITS | Clinical Summary ---
Author Organization [facility] Address [address] [place] [address] Care Team Providers Care Gas Pump Attendant Name Role Phone Kathleen Gorman MD Unavailable Unavailable Janay Garcia Magda Unavailable [phone] Akila Cerda MD Primary Care Prov [...] bedtime. 0 08/18/20 21 Active vit C-vit H-gejryl-dttpihgn -omega (OCUVITE) 250-5-1 mg Take 1 Capsule [...] 09/07/2021 Overview (09/07/2021): Found on CT at [facility] 07/21/21 T10, T11, L1 on [...] Department Care Team Description 01/24/2025 9:00 AM PAINTER MIRROR Office Visit [facility] [address] [facility] [address] Martínez Rojas MD Consult (Bowel obstructions - 2 surgeries & 3 hospitalizations recently, low fiber diet - how long, fluid intake) 01/23/2025 8:15 AM PAINTER MIRROR Office Visit [facility] [address] [place] [address] Akila Cerda MD Blood Pressure (Increased Lisinopril) 01/23/2025 Travel 01/15/2025 9:00 AM PAINTER MIRROR Procedure Only [facility] [address] [place] [facility] [address] Marya Delaney L Ac Acupuncture 01/15/2025 Travel 01/07/2025 2:00 PM PAINTER MIRROR Procedure Only [facility] [address] [place] [address] Marya Delaney L Ac Acupuncture 01/07/2025 Travel 12/25/2024 1:00 PM PAINTER MIRROR Procedure Only [facility] [address] [place] [address] Marya Delaney L Ac Acupuncture (Initial) 12/25/2024 Travel 12/13/2024 9:00 AM PAINTER MIRROR Office Visit [facility] [address] [place] [address] Akila Cerda MD Medicare ANNUAL (subsequent) Visit (89 yo female) 12/13/2024 Travel 11/19/2024 Orders Only [facility] [address] [place] [address] Akila Cerda MD Lab (Recheck Sodium level in 2-4 weeks (se... 11/15/2024 11:05 AM PAINTER MIRROR Office Visit [facility] [address] [place] [address] Akila Cerda MD Hospital F/U 11/15/2024 Travel from Last 3 Months Immunizations Immunization Administration Dates Next Due AMB INFLUENZA IIV3 (AGE 65+ YRS) PF (Flu Clinic Only) 09/12/2019,08/25/2017 AMB Influenza, IIV3 (Age >=3 years)(Flu Clinic Only) 09/06/2013,09/27/2012,09/22/2011,09/16,09/19/2009 Amb Influenza, Inact (High-d ose) (Flu Clinic Only) 09/05/2015 COVID-19 VACCINE SPIKEVAX (M ODERNA 50MCG/0.5ML) 12YO+ PFS 09/07/2024,10/13/2023 COVID-19 vaccine (ImpliantBio NTech 30mcg/0.3mL) 12YO+ BIVALENT PF, MDV 04/19/2023,09/09/2022 COVID-19 vaccine (Ushahidi NTech 30mcg/0.3mL) 12YO+ KAROLINA-SUCROSE PF, MDV 03/22/2022 COVID-19 vaccine (Ushahidi NTech 30mcg/0.3mL) PF, MDV 09/03/2021,01/31/2021,01/10/2021 Hepatitis A [...] on file Legal Sex Female 6:18 AM PAINTER MIRROR Gender Identity Not on file Sexual Orientation [...] Comments Blood Pressure 146/67 01/24/2025 9:05 AM PAINTER MIRROR Pulse 69 01/24/2025 9:05 AM PAINTER MIRROR Temperature 36.6 C (97.9 F) 11/12/2022 10:16 AM PAINTER MIRROR Respiratory Rate 18 08/18/2021 8:28 AM CDT Oxygen Saturation 97% 01/24/2025 9:05 AM PAINTER MIRROR Inhaled Oxygen Concentration - - Weight 57.2 kg (126 lb 3.2 oz) 01/24/2025 9:05 A M PAINTER MIRROR Height 160 cm (5' 3) 12/13/2024 9:06 AM PAINTER MIRROR Body Mass Index 22.36 12/13/2024 9:06 AM PAINTER MIRROR Plan of Treatment Health Maintenance Due Date [...] Diagnosis Comments TSH Routine 12/13/2024 10:21 AM PAINTER MIRROR Acquired hypothyroidism BASIC METABOLIC PANEL Routine 12/13/2024 10:21 AM PAINTER MIRROR HTN (hypertension) BASIC METABOLIC PANEL Routine 11/15/2024 12:29 PM PAINTER MIRROR Hyponatremia XR DXA BONE DENSITY 2 SITES AXIAL Routine 08/18/2021 9:54 AM CDT Osteoporosis, unspecified osteoporosis type, unspecified pathological fracture presence from Last 3 Months or Most Recently Relevant to Health Maintenance Results * TSH (12/13/2024 10:21 AM PAINTER MIRROR) TSH 0.40 0.40 - 4.50 mIU/L [facility] Blood BLOOD SPECIMEN / Unknown 12/13/2024 10:21 AM PAINTER MIRROR 12/13/2024 10:21 AM PAINTER MIRROR Akila Cerda MD CHEMISTRY Fi nal Result [facility] [address] [place] [address], [facility] [address] [place] [address] * (ABNORMAL) BASIC METABOLIC PANEL (12/13/2024 10:21 AM PAINTER MIRROR) Only the most recent of2 resultswithin the time period is included. GLUCOSE 91 65 - 99 mg/dL [facility] Lindsey Comment: Fasting reference interval UREA [...] BLOOD SPECIMEN / Unknown 12/13/2024 10:21 AM PAINTER MIRROR 12/13/2024 10:21 AM PAINTER MIRROR Akila Cerda MD CHEMISTRY Fi nal Result [facility] [address] [place] [address], [facility] [address] [place] [address] * (ABNORMAL) XR DXA BONE DENSITY 2 [...] Patients: Results are automatically released to your [employer] ([employer]) account once available, in compliance with federal regulations. This means that you may see your results before your provider has had a chance to review them. Please allow 2-3 business days for your provider to comment on the results. XR DXA Bone Mineral Density (BMD) EXAM LOCATION: [address] [address] PATIENT NAME: Areli Lee DATE OF : [...] two scanners are made by the same controls project engineer. PROCEDURE: Dual-energy x-ray absorptiometry performed with routine [...] Most Recently Relevant to Health Maintenance Insurance [facility] ONLY MEDICARE PART B HB ONLY [facility] MEDICARE PROVIDER BASED Advance Directives Documents on File Type Date Recorded Patient Superintendent Nonselling Expl anation Healthcare Directive 09/10/2021 2:29 PM H EALTHCARE DIRECTIVE, , 11/19/99 Care Teams Gas Pump Attendant Relationship Specialty Start Date End Date Akila Cerda MD [address] [place] [address] PCP - General Family Practice 04/07/18 Kathleen Gorman MD Surgery - Orthopedics 05/22/12 Janay Garcia AuD Audiology 09/22/07
[2025-02-11] MEDS: METOPROLOL TARTRATE 50 MG TABLET PO (20:39)
--- NOTE | 2025-02-11 21:45 | CRLHL7_ITS ---
For Patients: As a result of the Century Cures Act, medical imaging exams and procedure reports are released immediately into your electronic medical record. You may view this report before your referring provider. If you have questions, please contact your health care provider. INDICATION: Bowel obstruction TECHNIQUE: CT Abdomen and pelvis with i.v. contrast. Coronal and sagittal reformats were obtained. CONTRAST: 58 mL Isovue 370 COMPARISON: 11/06/2024 FINDINGS: Lower chest: Unremarkable. Liver: Unremarkable. Spleen: Unremarkable. Pancreas: Unremarkable. Gallbladder: Unremarkable. Kidney: Unremarkable. No kidney or ureteral stones or obstruction seen. Adrenal: Unremarkable. Bowel: Fluid-filled and dilated small bowel loops are present measuring up to 5 cm in diameter are present with a transition point in the mid abdomen where there are swirled decompressed small bowel loops and mesenteric vessels. Severe diverticulosis of the sigmoid colon is present with no evidence of diverticulitis. A bowel anastomotic staple line is seen in the right upper quadrant. The appendix is not visualized. Vascular: Unremarkable. Lymph: Unremarkable. Peritoneum: Unremarkable. No pneumoperitoneum is seen. No significant ascites is noted. Pelvis: Unremarkable. Soft tissue: Unremarkable. Bone: A severe chronic compression deformity of L1 is noted without interval change. Moderate compression deformities of T10 and T11 are also unchanged. IMPRESSION: 1. Fluid-filled and dilated small bowel loops are present measuring up to 5 cm in diameter are present with a transition point in the mid abdomen where there are swirled decompressed small bowel loops and mesenteric vessels. Findings are consistent with high-grade small-bowel obstruction. Dictated by Jose Guadalupe Fontanez MD @ 02/11/2025 10:59:36 PM Please note that all CT scans at this facility use dose modulation, iterative reconstruction, and/or weight-based dosing when appropriate to reduce radiation dose to as low as reasonably achievable. Dictated by: oJse Guadalupe Fontanez MD @ 02/11/2025 23:01:25 (Electronically Signed)
[2025-02-11 21:52] VITALS: O2SAT 97
[2025-02-11] MEDS: 0.9 % SODIUM CHLORIDE 1000 ml 1,000 ML IV (22:06)
[2025-02-11 22:17] LABS: Basophils Absolute Auto 0.01 K/uL (0.00-0.30); Basophils Percent Auto 0.1 % (0.0-3.0); Eosinophils Absolute Auto 0.12 K/uL (0.00-0.50); Eosinophils Percent Auto 1.3 % (0.0-7.0); Hematocrit 40.8 % (33.0-51.0); Hemoglobin* 13.7 gm/dL (12.0-16.0); Immature Granulocytes Abs Auto 0.03 K/uL (0.00-0.30); Immature Granulocytes Pct Auto 0.3 %; Lymphocytes Percent Auto 14.7 % (20-44); Mean Corpuscular HGB Conc 34 gm/dL (32-36); Mean Corpuscular Hemoglobin 30 pg (26-34); Mean Corpuscular Volume 90 fL (80-100); Monocytes Percent Auto 12.3 % (0.0-11.0); Neutrophils Percent Auto 71.3 % (42.0-72.0); Platelet Count* 350 K/uL (140-440); Red Blood Count 4.52 m/uL (4.00-5.20)
[2025-02-11] MEDS: ONDANSETRON 2 MG/ML inj 4 MG IVP (22:22)
[2025-02-11] MEDS: HYDROmorphone 0.5 mg/0.5 ml inj 0.2 MG IVP (22:22)
--- NOTE | 2025-02-11 22:28 | PM.IMHP1 ---
Hospitalist- H&P: HPI History of Present Illness Date Seen: 02/11/25 Chief complaint: Abdominal pain Narrative: Areli Lee is a 89 year old woman presents with a 24 hour history of increasing abdominal pain, distension, nausea, dry heaves and vomiting. Was doing well yesterday morning. After orthodox she ate a snack. This is the last time she had anything to eat. In the afternoon she started to have the onset of the abdominal distension and queasiness and then pain. Describes a constant dull ache which she quantitate set at 4/10. Times she will have a stabbing pain which she quantitate set 6/10. She indicates she had a good bowel movement late last night. She had multiple bouts of nausea with dry heaves, and 1 occasion where she had actual vomiting. Has not had any dry heaves or vomiting today. Continues to have a sense of nausea and abdominal bloating. In the last few hours has started to pass some flatus. Feels like she has have a bowel movement but she is unable to have a bowel movement. Denies any rectal or pelvic pain per se. Denies fevers, rigors, diaphoresis. Has not had dysuria, urgency, frequency, hematuria. Denies constipation or diarrhea. Denies chest heaviness, pressure, tightness, or pain. Denies cough or dyspnea. Denies syncope or near-syncope. Denies palpitations. No recent trauma, injury, or travel. Denies blood loss of any sort. She has had similar symptoms in the past with small bowel obstructions. The last time she had a similar presentation was when she was admitted on 11/07/2024 through 11/11/2024. This last hospitalization in October 2024 was her 5th occurrence of a small-bowel obstruction since 2020. She has required 2 surgeries for this in the past. Review of Systems Status of ROS: Reports: 6 or more systems reviewed and unremarkable except as noted in History and below Narrative: Has designated her daughter, Alda Kolb, as her POA for health. Requests full resuscitation in event of cardiopulmonary demise. [facility] Medical History CKD (chronic kidney disease) ?N18.9 - Chronic kidney disease, unspecified (ICD-10) Partial hamstring tear ?S76.319A - Strain of muscle, fascia and tendon of the posterior muscle group at thigh level, unspecified thigh, initial encounter (ICD-10) Right hip impingement syndrome ?M25.851 - Other specified joint disorders, right hip (ICD-10) Hypertension ?I10 - Essential (primary) hypertension (ICD-10) Left bundle branch block ?I44.7 - Left bundle-branch block, unspecified (ICD-10) Small bowel obstruction ?K56.609 - Unspecified intestinal obstruction, unspecified as to partial versus complete obstruction (ICD-10) Postoperative ileus ?K91.89 - Other postprocedural complications and disorders of digestive system (ICD-10) ?K56.7 - Ileus, unspecified (ICD-10) Postoperative hypoxia ?R09.02 - Hypoxemia (ICD-10) ?Z98.890 - Other specified postprocedural states (ICD-10) Anemia following surgery ?D64.9 - Anemia, unspecified (ICD-10) Strain of right hip ?S76.011A - Strain of muscle, fascia and tendon of right hip, initial encounter (ICD-10) Sigmoid diverticulosis ?K57.30 - Diverticulosis of large intestine without perforation or abscess without bleeding (ICD-10) Arthritis ?M19.90 - Unspecified osteoarthritis, unspecified site (ICD-10) GERD (gastroesophageal reflux disease) ?K21.9 - Gastro-esophageal reflux disease without esophagitis (ICD-10) Atrial fibrillation ?I48.91 - Unspecified atrial fibrillation (ICD-10) Hypothyroid ?E03.9 - Hypothyroidism, unspecified (ICD-10) Surgical History S/P laparotomy with lysis of adhesions ?Z98.890 - Other specified postprocedural states (ICD-10) 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) ?Z98.890 - Other specified postprocedural states (ICD-10) History of ankle surgery (12/04/92) ?Z98.890 - Other specified postprocedural states (ICD-10) 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 She lives in [place] with her . She does not smoke. She drinks 1 glass of wine a day. What is your current living situation?: I presently have a place to live Problems where you live: no known problems Problems where you live details: n/a In the past 12 months, utilities in danger of being shut off: no In past 12 months, lack of transportation kept you from medical appts, meetings, work, or getting things needed for daily living: no In the past 12 mos, have been you worried that your food would run out before you had money to buy more?: never true In the past 12 mos, the food you bought just didn't last and you didn't have money to buy more?: never true Highest level of school completed/degree received: Associate degree: occupational, technical, vocational program Smoking Status: Former smoker What tobacco products do you use: cigarettes Smoking quit date/years: >15 years ago Do you use any of these nicotine containing products: None Second hand tobacco smoke exposure: No How often do you have a drink containing alcohol: 4 or more times a week Alcohol type: wine Alcohol type details: daily glass of wine with dinner How many standard drinks containing alcohol do you have on a typical day: 1 or 2 How often do you have six or more drinks on one occasion: Never AUDIT-C Alcohol total score: 4 Non-prescribed substance use: denies use Caffeine: Yes How often does anyone, including family, friends and others, physically hurt you: never How often does anyone, including family, friends and others, insult or talk down to you: never How often does anyone, including family, friends and others, threaten you with harm: never How often does anyone, including family, friends and others, scream or curse at you: never service: No Meds Home Medications and Allergies Home Medications ?Medication ?Instructions ?Recorded ?Confirmed ?Type cetirizine 10 mg tablet 10 mg PO DAILY PRN 08/05/22 02/11/25 History levothyroxine 75 mcg tablet 75 mcg PO DAILY 08/05/22 02/11/25 History lisinopril 5 mg tablet 7.5 mg PO HS 08/05/22 02/11/25 History metoprolol tartrate 50 mg tablet 50 mg PO BID 08/05/22 02/11/25 History multivitamin 1 tab PO DAILY 08/05/22 02/11/25 History naproxen 250 mg tablet 250 mg PO BID PRN 04/12/23 02/11/25 History omega 0-xnw-feg-fish oil 60 mg-90 1 cap PO BID 04/12/23 02/11/25 History mg-500 mg capsule (Fish Oil) calcium carbonate (Calcium 500) 500 mg PO DAILY 09/23/23 02/11/25 History acetaminophen 500 mg capsule 500 - 1,000 mg PO Q6H PRN 10/28/24 02/11/25 History Allergies Allergy/AdvReac Type Severity Reaction Status Date / Time cat dander Allergy Verified 02/11/25 22:42 perfume Allergy Verified 02/11/25 22:42 Exam Narrative: Exam Narrative: Examine her in the emergency department. Appears comfortable. Cooperative and friendly. Hearing and vision are quite adequate. Alert and oriented x4. Neck is supple. Midline trachea. No head neck lymphadenopathy. Lungs are clear to auscultation without wheezing, rhonchi, rales. Chest wall excursions are full. No CVA tenderness. Heart tones with regular rhythm, normal S1-S2, without murmur, gallop, rub. PMI not laterally displaced. Abdomen with gurgling bowel sounds. Distended. Soft. No rebound or guarding. Independent with transfer, station, gait. No focal motor neurologic deficits. Extremities without edema. Palpable pulses upper and lower extremities. Capillary refill less than 3 seconds upper and lower extremities. Const: Vital Signs, click to edit/add: Vital Signs - 24 hr 02/11/25 17:31 02/11/25 21:52 Temperature 97.9 F Pulse Rate [Pulse Oximeter] 89 Respiratory Rate 16 Blood Pressure [Ri ght Upper Arm] 179/80 H Pulse Oximetry 94 97 Oxygen Delivery Me thod Room Air Hospitalist - H&P: Result Labs Labs: White count 9.4 with normal differential. Hemoglobin 13.7 and platelets 350. Chemistries are pending. Imaging Abdominal x-ray: Attestation: I have reviewed the pertinent imaging results. Radiologist's impression: IMPRESSION: 1. Gas-filled and dilated small bowel and colonic loops are noted with the small bowel measuring up to 4.5 cm. Scattered air-fluid levels are noted. Findings are suspicious for small bowel obstruction and can be better characterized by CT. Assessment and Plan Assessment and plan (1) Partial small bowel obstruction: Problem comment: - passing flatus already - abdominal pain, nausea, retching and vomiting are improving - conservative measures with NPO status including oral medications for now, IV fluids, analgesics, antiemetics - will hold off on NG tube placement at this time - given that it appears she is already improving will hold off on obtaining general surgery consultation at this time - encourage mobility and will use sequential compression devices at bedtime for venous thromboembolism prophylaxis - monitor labs - await CT scan of abdomen and pelvis Status: Acute (2) History of small bowel obstruction: Status: Acute (3) Dehydration: Status: Acute Plan 1. Reviewed impression and plan with patient 2. Answered her questions to her satisfaction 3. Patient agreeable with above stated plans and recommendations Total Time Spent Total Time Spent: 50 minutes
[2025-02-11 22:30] LABS: Slide Review Reflex No
[2025-02-11 22:34] LABS: Chloride* 87 mmol/L (96-114); Potassium* 4.3 mmol/L (3.6-5.1); Sodium* 127 mmol/L (135-149)
[2025-02-11 22:37] LABS: Blood Urea Nitrogen* 26 mg/dL (7-30); Creatinine* 0.9 mg/dL (0.5-1.5); Est. Creatinine Clearance* 32.79; Estimated Glomerular Filt Rate 62 ml/min
[2025-02-11 22:38] LABS: Anion Gap 12 mEq/L (7-15); Calcium* 10.9 mg/dL (8.4-10.6); Carbon Dioxide* 28 mmol/L (20-32); Glucose* 105 mg/dL (60-115)
[2025-02-11 22:43] VITALS: BP 169/76; PULSE 82; RESP 18; TEMP 36.6; O2SAT 93; BMI 22.0
[2025-02-11] MEDS: 0.9 % SODIUM CHLORIDE 1000 ml 1,000 ML 125 ML IV (23:33)
[2025-02-12] VITALS (7 sets, daily range): BP systolic 124–190; BP diastolic 72–99; PULSE 68–93; RESP 17–22; TEMP 36.4–36.8; O2SAT 93–96
[2025-02-12] MEDS: lisinopriL 5 MG TABLET 7.5 MG PO ×2 (00:04→20:13)
[2025-02-12] MEDS: LEVOTHYROXINE 50 MCG TABLET 75 MCG PO (06:18)
[2025-02-12 06:48] LABS: Lactate* 0.8 mmol/L (0.5-1.9)
[2025-02-12 06:51] LABS: Hematocrit 39.3 % (33.0-51.0); Hemoglobin* 13.1 gm/dL (12.0-16.0); Mean Corpuscular HGB Conc 33 gm/dL (32-36); Mean Corpuscular Hemoglobin 30 pg (26-34); Mean Corpuscular Volume 91 fL (80-100); Platelet Count* 316 K/uL (140-440); Red Blood Count 4.33 m/uL (4.00-5.20); White Blood Count* 7.55 K/uL (4.50-11.00)
[2025-02-12 06:55] LABS: Slide Review Reflex No
[2025-02-12 07:19] LABS: Chloride* 96 mmol/L (96-114); Potassium* 4.4 mmol/L (3.6-5.1); Sodium* 130 mmol/L (135-149)
[2025-02-12 07:22] LABS: Anion Gap 7 mEq/L (7-15); Blood Urea Nitrogen* 22 mg/dL (7-30); Calcium* 9.7 mg/dL (8.4-10.6); Carbon Dioxide* 27 mmol/L (20-32); Creatinine* 0.9 mg/dL (0.5-1.5); Est. Creatinine Clearance* 32.79; Estimated Glomerular Filt Rate 62 ml/min; Glucose* 99 mg/dL (60-115)
[2025-02-12 07:25] LABS: C Reactive Protein* 1.8 mg/dL (0.5-1.0)
[2025-02-12] MEDS: 0.9 % SODIUM CHLORIDE 1000 ml 1,000 ML 125 ML IV ×2 (07:54→16:02)
--- NOTE | 2025-02-12 08:02 | PC.NURSE ---
Shift note (): Patient admitted from ED at 2038. Pleasant, alert and oriented. Was given pain medication before arriving on unit. Rated abdominal pain 2-4/10 during shift. Bowel sounds active. Denies nausea. Ambulated independently in room. Patient denied any lightheadedness, dizziness or nausea with orthostatic BPs.?
--- NOTE | 2025-02-12 11:15 | PM.IMPN1 ---
Subjective Date Seen: 02/12/25 Interval history: Brandy was admitted last for recurrent SBO; presented with abdominal pain, retching, distension. She had symptoms one week ago, was able to transition to clear liquids x1-2 days with good relief, then symptoms recurred on 02/10 and she was unable to improve on clear liquid diet. Had retching and abdominal pain prior to ER presentation. CT on admission revealed high grade SBO; placed on IVFs and NPO diet. Passed flatus overnight and this morning feels that she could advance to clear liquids. Exam Narrative: Exam Narrative: GEN: Alert and oriented, nontoxic HEENT: EOMIs bilaterally, no scleral icterus CV: RRR, No concerning murmurs R: LCTA bilaterally without concerning wheezing Ab: Distension noted, + ttp, hypoactive bowel sounds Ext: wwp, no concerning edema Skin: No concerning skin lesions or rashes on exposed skin Neuro: Nonfocal Psych: Appropriate Const: Vital Signs, click to edit/add: Vital Signs - 24 hr 02/11/25 17:31 02/11/25 21:52 02/11/25 22:43 Temperature 97.9 F 97.8 F Pulse Rate [Pulse Oximeter] 89 82 Pulse Rate [orthos tatic lying Pulse Oximeter] Pulse Rate [orthos tatic sitting Puls e Oximeter] Pulse Rate [orthos tatic standing Pul se Oximeter] Respiratory Rate 16 18 Blood Pressure [Le ft Arm] Blood Pressure [Ri ght Arm] 169/76 H Blood Pressure [Ri ght Upper Arm] 179/80 H Blood Pressure [or thostatic lying Le ft Arm] Blood Pressure [or thostatic sitting Left Arm] Blood Pressure [or thostatic standing Left Arm] Pulse Oximetry 94 97 93 Oxygen Delivery Me thod Room Air Room Air 02/11/25 22:43 02/12/25 03:00 02/12/25 06:22 Temperature 97.6 F Pulse Rate [Pulse Oximeter] 82 Pulse Rate [orthos tatic lying Pulse Oximeter] 80 Pulse Rate [orthos tatic sitting Puls e Oximeter] 85 Pulse Rate [orthos tatic standing Pul se Oximeter] 93 Respiratory Rate 17 Blood Pressure [Le ft Arm] 147/82 H Blood Pressure [Ri ght Arm] Blood Pressure [Ri ght Upper Arm] Blood Pressure [or thostatic lying Le ft Arm] 147/72 H Blood Pressure [or thostatic sitting Left Arm] 136/81 Blood Pressure [or thostatic standing Left Arm] 124/79 Pulse Oximetry 93 Oxygen Delivery Me thod Room Air Room Air 02/12/25 07:00 02/12/25 07:00 Temperature 97.8 F Pulse Rate [Pulse Oximeter] 83 83 Pulse Rate [orthos tatic lying Pulse Oximeter] Pulse Rate [orthos tatic sitting Puls e Oximeter] Pulse Rate [orthos tatic standing Pul se Oximeter] Respiratory Rate 18 18 Blood Pressure [Le ft Arm] 130/74 Blood Pressure [Ri ght Arm] Blood Pressure [Ri ght Upper Arm] Blood Pressure [or thostatic lying Le ft Arm] Blood Pressure [or thostatic sitting Left Arm] Blood Pressure [or thostatic standing Left Arm] Pulse Oximetry 93 Oxygen Delivery Me thod Room Air Labs Labs: Laboratory Results - last 24 hr 02/11/25 02/11/25 02/12/25 22:02 22:04 06:37 WBC 9.40 7.55 RBC 4.52 4.33 Hgb 13.7 13.1 Hct 40.8 39.3 MCV 90 91 MCH 30 30 MCHC 34 33 RDW Coeff of [place] 13.0 Plt Count 350 316 Neut % (Auto) 71.3 Lymph % (Auto) 14.7 L [place] % (Auto) 12.3 H Eos % (Auto) 1.3 Baso % (Auto) 0.1 Neut # (Auto) 6.70 Lymph # (Auto) 1.40 [place] # (Auto) 1.20 H Eos # (Auto) 0.12 Baso # (Auto) 0.01 Abs Immat Gran (auto) 0.03 Imm/Tot Granulo (auto) 0.3 Sodium 127 L 130 L Potassium 4.3 4.4 Chloride 87 L 96 Carbon Dioxide 28 27 Anion Gap 12 7 BUN 26 22 Creatinine 0.9 0.9 Estimated Creat Clear 32.79 32.79 Estimated GFR 62 62 Glucose 105 99 Lactate 0.8 Calcium 10.9 H 9.7 C-Reactive Protein 1.8 H POC Creatinine 1.0 Assessment and Plan Assessment and plan (1) Partial small bowel obstruction: Problem comment: - per admission imaging, high grade - presented with abdominal pain, nausea, retching and vomiting are improving - required NPO status and IVFs on admission, in addition to IV narcotics - history of recurrent SBOs; had managed at home one week ago with 36H of clear liquids, then symptoms recurred on 02/10/25 - + flatus 02/12, will cautiously advance diet to clears - no need for NG tube or General Surgery consult at this time Status: Acute (2) History of small bowel obstruction: Problem comment: - recurrent, previous abdominal surgeries Status: Acute (3) Dehydration: Problem comment: - on IVFs Status: Acute (4) Tachycardia: Problem comment: - History of recurrent sinus tachycardia, PVCs, on Metoprolol with good results - resume home Metoprolol 02/12 Status: Acute Plan - per above - ambulation, SCDs overnight for ppx - appropriate for inpatient status given recurrent high grade SBO, comorbidities, need for NPO status upon admission, IV narcotics, IVFs
[2025-02-12] MEDS: METOPROLOL TARTRATE 50 MG TABLET PO ×2 (11:39→20:15)
[2025-02-12] MEDS: ACETAMINOPHEN 325 MG TABLET 650 MG PO (15:38)
--- NOTE | 2025-02-12 19:40 | PC.NURSE ---
Nursing Care Hours: [id number] Pt this shift calm and cooperative. alert and oriented. Pain treated with PRN tylenol. Advanced to clear liquid. Tolerating diet fairly. Does c/o increase in pain but denies nausea. Abdomen soft but distended, BS active and pt passing gas. 3-4 small loose BM reported. IV patent. Pt independent. HTN noted today without symptoms.
[2025-02-12] MEDS: HYDROmorphone 0.5 mg/0.5 ml inj 0.2 MG IVP (20:13)
[2025-02-13] VITALS (7 sets, daily range): BP systolic 143–175; BP diastolic 74–90; PULSE 76–86; RESP 16–20; TEMP 36.6–37.1; O2SAT 92–95
[2025-02-13] MEDS: 0.9 % SODIUM CHLORIDE 1000 ml 1,000 ML 125 ML IV ×3 (00:08→16:50)
[2025-02-13 06:51] LABS: Basophils Absolute Auto 0.02 K/uL (0.00-0.30); Basophils Percent Auto 0.3 % (0.0-3.0); Eosinophils Absolute Auto 0.36 K/uL (0.00-0.50); Eosinophils Percent Auto 5.1 % (0.0-7.0); Hematocrit 35.5 % (33.0-51.0); Hemoglobin* 11.7 gm/dL (12.0-16.0); Immature Granulocytes Abs Auto 0.03 K/uL (0.00-0.30); Immature Granulocytes Pct Auto 0.4 %; Lymphocytes Percent Auto 11.9 % (20-44); Mean Corpuscular HGB Conc 33 gm/dL (32-36); Mean Corpuscular Hemoglobin 30 pg (26-34); Mean Corpuscular Volume 92 fL (80-100); Monocytes Percent Auto 11.8 % (0.0-11.0); Neutrophils Absolute Auto 4.96 K/uL (1.7-7.0); Neutrophils Percent Auto 70.5 % (42.0-72.0); Platelet Count* 298 K/uL (140-440); Red Blood Count 3.86 m/uL (4.00-5.20); White Blood Count* 7.04 K/uL (4.50-11.00)
[2025-02-13] MEDS: LEVOTHYROXINE 75 MCG TABLET PO (07:02)
[2025-02-13 07:07] LABS: Slide Review Reflex No
[2025-02-13 07:17] LABS: Chloride* 101 mmol/L (96-114); Sodium* 132 mmol/L (135-149)
[2025-02-13 07:20] LABS: Anion Gap 10 mEq/L (7-15); Blood Urea Nitrogen* 14 mg/dL (7-30); Calcium* 9.1 mg/dL (8.4-10.6); Carbon Dioxide* 21 mmol/L (20-32); Creatinine* 0.7 mg/dL (0.5-1.5); Est. Creatinine Clearance* 32.79; Estimated Glomerular Filt Rate 84 ml/min; Glucose* 75 mg/dL (60-115)
--- NOTE | 2025-02-13 07:53 | PC.NURSE ---
Shift note ([id number]): Patient pleasant, alert and oriented.?Ambulates independently in room.?Per patient abdomen is more round and distended this shift than previous day. Bowel sounds active. Had small, formed, soft brown BM last evening. Reports passing gas. Denies nausea. Given PRN Dilaudid at 2015 for pain rated 5/10. Dr Canchola updated this morning of above. Blood pressure elevated. Given scheduled BP meds at that time which was effective. Most recent BP 143/74.?
[2025-02-13] MEDS: METOPROLOL TARTRATE 50 MG TABLET PO ×2 (08:32→16:55)
[2025-02-13] MEDS: ACETAMINOPHEN 325 MG TABLET 650 MG PO (13:42)
--- NOTE | 2025-02-13 15:05 | PM.IMPN1 ---
Subjective Date Seen: 02/13/25 Interval history: Daily Progress Note - Hospital #: 3 CC: SBO; recurrent 24 HOUR UPDATE: pt is passing flatus and small stool. However as day progressess - her nausea is getting worse, no appetite and she feels cordero across the abdomen. pain is still very manageable. Notable Labs, Micro, Rads, Interventions: labs reviewed this am; no concerns. Objective: alert, pleasant, excellent insight into SBO Vitals: reviewed Lungs: Clear. Cardiac: S1S2. abdomen: tender globally - a bit worse in umbilicus region. distant bowel sounds. Disposition/Potential discharge - TBD, home but timing is unclear. Today I spent 50minutes seeing the patient, reviewing Expanse and EPIC notes/diagnostics, discussing the care plan with our care time that includes social work, PT/OT, pharmacy, RT, fci and documenting my impressions and plan in the medical record. Exam Const: Vital Signs, click to edit/add: Vital Signs - 24 hr 02/12/25 19:00 02/12/25 22:24 02/13/25 02:51 Temperature 98.2 F 97.9 F 98.2 F Pulse Rate [Pulse Oximeter] 78 75 76 Respiratory Rate 22 18 18 Blood Pressure [Le ft Arm] 190/99 H 150/80 H 143/74 H Pulse Oximetry 95 96 93 Oxygen Delivery Me thod Room Air Room Air Room Air 02/13/25 07:00 02/13/25 11:00 Temperature Pulse Rate [Pulse Oximeter] 83 78 Respiratory Rate 20 18 Blood Pressure [Le ft Arm] 156/85 H 172/80 H Pulse Oximetry 93 95 Oxygen Delivery Me thod Room Air Room Air Labs Labs: Laboratory Results - last 24 hr 02/13/25 06:17 WBC 7.04 RBC 3.86 L Hgb 11.7 L Hct 35.5 MCV 92 MCH 30 MCHC 33 RDW Coeff of [place] 13.0 Plt Count 298 Neut % (Auto) 70.5 Lymph % (Auto) 11.9 L [place] % (Auto) 11.8 H Eos % (Auto) 5.1 Baso % (Auto) 0.3 Neut # (Auto) 4.96 Lymph # (Auto) 0.80 L [place] # (Auto) 0.80 Eos # (Auto) 0.36 Baso # (Auto) 0.02 Abs Immat Gran (auto) 0.03 Imm/Tot Granulo (auto) 0.4 Sodium 132 L Potassium 4.0 Chloride 101 Carbon Dioxide 21 Anion Gap 10 BUN 14 Creatinine 0.7 Estimated Creat Clear 32.79 Estimated GFR 84 Glucose 75 Calcium 9.1 Assessment and Plan Assessment and plan (1) Partial small bowel obstruction: Problem comment: - per admission imaging, high grade - presented with abdominal pain, nausea, retching and vomiting all improved initially (large liquid stool am of 02/12) - however now more plateaued and late today feeling worse. - required NPO status and IVFs on admission, in addition to IV narcotics - history of recurrent SBOs; had managed at home one week ago with 36H of clear liquids, then symptoms recurred on 02/10/25 - discussed with gen surg, afternoon of 02/13 - Gastrografin challenge tonight. Status: Acute (2) History of small bowel obstruction: Problem comment: - recurrent, previous abdominal surgeries Status: Acute (3) Dehydration: Problem comment: - on IVFs Status: Acute (4) Tachycardia: Problem comment: - History of recurrent sinus tachycardia, PVCs, on Metoprolol with good results - resume home Metoprolol 02/12 Status: Acute
[2025-02-13] MEDS: ONDANSETRON 2 MG/ML inj 4 MG IVP (15:38)
--- NOTE | 2025-02-13 19:46 | CRLHL7_ITS ---
For Patients: As a result of the Century Cures Act, medical imaging exams and procedure reports are released immediately into your electronic medical record. You may view this report before your referring provider. If you have questions, please contact your health care provider. Indication: Tube placement. Technique: Abdomen 1 views. Comparison: February 11, 2025. Findings/Impression: NG tube is in the proximal stomach, including the side port. Dilated loops of small bowel are noted measuring up to 5.5 centimeters in diameter. Lung bases are clear. Heart size within normal limits. Osseous structures are unremarkable for age. Dictated by Bandar Barrios MD @ 02/13/2025 8:42:03 PM (Electronically Signed)
--- NOTE | 2025-02-13 20:11 | PC.NURSE ---
End of shift [id number] - Pt alert, oriented, cooperative. Up independently in halls. Reported pain in abdomen rated as 2-4/10. Given medication per MAR with pt reporting improvement. Pt tolerating RA and clear liquid diet. Reported nausea during shift, given medication per MAR with nausea subsiding. Pt reported several small formed BMs but abdomen is still visibly distended. Tolerating NG tube in R nare placed at end of shift. Appears to be resting comfortably with call light within reach.
[2025-02-13] MEDS: lisinopriL 5 MG TABLET 7.5 MG PO (20:20)
[2025-02-13] MEDS: SODIUM CHLORIDE 0.9 % (FLUSH) 10 ML SYRINGE 5 ML IVF (20:21)
[2025-02-13] MEDS: BENZOCAINE 20 % SPRAY 1 EACH NOSTRIL-B (20:27)
[2025-02-13] MEDS: DIATRIZOATE MEGLUMINE, SODIUM 120 ML SOLUTION 90 ML NG (22:12)
[2025-02-14] MEDS: 0.9 % SODIUM CHLORIDE 1000 ml 1,000 ML 125 ML IV ×3 (00:09→21:40)
[2025-02-14 02:21] VITALS: BP 167/82; PULSE 93; RESP 16; TEMP 36.8; O2SAT 92
--- NOTE | 2025-02-14 04:42 | PC.NURSE ---
NG placed in Pt at 60cm Right Nostril. Gastrografin Challenge started and and NG clamped per protocol. Order sent to Radiology for am X-ray. Pt up IND in room voiding. States passing flatus. No pain reported. Pleasant and cooperative.
--- NOTE | 2025-02-14 05:49 | PC.NURSE ---
Pt had one large loose BM @ 0500.
[2025-02-14] MEDS: LEVOTHYROXINE 75 MCG TABLET PO (06:59)
--- NOTE | 2025-02-14 07:00 | CRLHL7_ITS ---
For Patients: As a result of the Century Cures Act, medical imaging exams and procedure reports are released immediately into your electronic medical record. You may view this report before your referring provider. If you have questions, please contact your health care provider. Indication: Small-bowel obstruction. Technique: 1 View(s) of the abdomen. Comparison: Radiographs 02/13/2025 and 02/11/2025. CT 02/11/2025. Findings/Impression: Lines and tubes: Enteric tube tip and side port are within the gastric body. Enteric contrast is seen within dilated loops of small bowel in the lower abdomen. The number of dilated small bowel loops appears decreased compared to 02/13/2025. Large bowel enteric contrast is seen in the splenic flexure as well as the rectum. Limited evaluation for pneumoperitoneum on supine images. Nodular densities in the right lung base. Similar lower thoracic and upper lumbar compression deformities. Dictated by Maria Luz Caldwell MD @ 02/14/2025 7:18:34 AM (Electronically Signed)
[2025-02-14 07:53] VITALS: BP 164/91; PULSE 96; RESP 18; TEMP 36.6; O2SAT 96
[2025-02-14] MEDS: METOPROLOL TARTRATE 50 MG TABLET PO ×2 (09:32→21:58)
[2025-02-14] MEDS: ACETAMINOPHEN 325 MG TABLET 650 MG PO (13:09)
[2025-02-14 14:13] VITALS: BP 145/74; PULSE 79; RESP 18; O2SAT 94
--- NOTE | 2025-02-14 15:41 | P.IMPN_ITS ---
Assessment and Plan Assessment and plan (1) Partial small bowel obstruction: Problem comment: - per admission imaging, high grade - presented with abdominal pain, nausea, retching and vomiting all improved initially (large liquid stool am of 02/12) - however now more plateaued and late today feeling worse. - required NPO status and IVFs on admission, in addition to IV narcotics - history of recurrent SBOs; had managed at home one week ago with 36H of clear liquids, then symptoms recurred on 02/10/25 - discussed with gen surg, afternoon of 02/13 - Gastrografin challenge successfully passed. Status: Acute (2) History of small bowel obstruction: Problem comment: - recurrent, previous abdominal surgeries Status: Acute (3) Dehydration: Problem comment: - on IVFs Status: Acute (4) Tachycardia: Problem comment: - History of recurrent sinus tachycardia, PVCs, on Metoprolol with good results - resume home Metoprolol 02/12 Status: Acute Subjective Date Seen: 02/14/25 Interval history: Daily Progress Note - Hospital Medicine Day #: 4 CC: SBO; recurrent 24 HOUR UPDATE: Pt had a Gastrografin challenge. NG was placed late last night and the Gastrografin was administered via NG tube. This morning the contrast is seen in her rectum. She had 3 large bowel movements overnight. While she feels less distended and less nauseous she still has no appetite and feels tired and weak. She did tolerate coffee, cranberry juice and broth today. No vomiting. Vital signs are stable. Notable Labs, Micro, Rads, Interventions: labs reviewed this am; no concerns. Objective: alert, pleasant, excellent insight into SBO Vitals: reviewed Lungs: Clear. Cardiac: S1S2. abdomen: mild-mod distention; bowel sounds better in the lower quadrants. Disposition/Potential discharge - TBD, home but timing is unclear. Today I spent 50minutes seeing the patient, reviewing Expanse and EPIC notes/diagnostics, discussing the care plan with our care time that includes social work, PT/OT, pharmacy, RT, long-term and documenting my impressions and plan in the medical record. Exam Const: Vital Signs, click to edit/add: Vital Signs - 24 hr 02/13/25 19:18 02/13/25 22:09 02/13/25 22:48 Temperature 98.7 F 97.9 F Pulse Rate [Pulse Oximeter] 79 86 86 Respiratory Rate 16 16 16 Blood Pressure [Le ft Arm] 175/88 H 168/84 H Pulse Oximetry 92 95 Oxygen Delivery Me thod Room Air 02/14/25 02:21 02/14/25 07:53 02/14/25 14:13 Temperature 98.2 F 97.8 F Pulse Rate [Pulse Oximeter] 93 96 79 Respiratory Rate 16 18 18 Blood Pressure [Le ft Arm] 167/82 H 164/91 H 145/74 H Pulse Oximetry 92 96 94 Oxygen Delivery Me thod Room Air Room Air Room Air
[2025-02-14 19:00] VITALS: BP 187/98; PULSE 85; RESP 18; TEMP 36.9; O2SAT 95
--- NOTE | 2025-02-14 19:39 | PC.NURSE ---
End of shift - Pt alert, oriented, cooperative. Up independently in room and halls. Tolerating RA and advance to full liquid diet. Pt reported pain in abdomen as 2/10, given medication per MAR to improve pt comfort. Pt indicated aqua K heating pad and medication improved pain. Abdomen noted to be distended, but less so than previous day and pt agreed with printing machinist. Pt reported experiencing multiple urgent BMs that were mostly liquid with some formed pieces. Family at beside, pt appears to be resting comfortably in bed with call light within reach.
[2025-02-14] MEDS: lisinopriL 5 MG TABLET 7.5 MG PO (21:57)
[2025-02-14 23:00] VITALS: BP 180/102; PULSE 83; RESP 18; TEMP 36.8; O2SAT 95
[2025-02-15] MEDS: ACETAMINOPHEN 325 MG TABLET 650 MG PO (00:17)
[2025-02-15] MEDS: ONDANSETRON 2 MG/ML inj 4 MG IVP (00:17)
[2025-02-15 03:00] VITALS: BP 135/72; PULSE 73; RESP 16; TEMP 36.6; O2SAT 92
[2025-02-15] MEDS: 0.9 % SODIUM CHLORIDE 1000 ml 1,000 ML 125 ML IV (05:25)
[2025-02-15] MEDS: LEVOTHYROXINE 75 MCG TABLET PO (06:53)
--- NOTE | 2025-02-15 07:02 | PC.NURSE ---
End of shift report ([id number]): Pt alert, oriented and vitally stable. Pt states abdomen feels more distended after eating, though non tender and soft to palpation. Bowel sounds hyperactive in all 4 quadrants. Pt had pain rated 4-5/10 and some nausea, prn Tylenol and Zofran given. Pt had large BM this morning, loose and incontinent. Pt on full liquids, tolerating okay. Pt in bed, appears to be resting, call light within reach.?
[2025-02-15 07:21] LABS: Chloride* 98 mmol/L (96-114)
[2025-02-15 07:22] LABS: Albumin* 3.2 g/dL (3.3-5.0); Potassium* 3.2 mmol/L (3.6-5.1); Sodium* 127 mmol/L (135-149)
[2025-02-15 07:24] LABS: Blood Urea Nitrogen* 6 mg/dL (7-30); Creatinine* 0.5 mg/dL (0.5-1.5); Est. Creatinine Clearance* 32.79; Estimated Glomerular Filt Rate 91 ml/min
[2025-02-15 07:25] LABS: Anion Gap 8 mEq/L (7-15); Calcium* 8.3 mg/dL (8.4-10.6); Carbon Dioxide* 21 mmol/L (20-32); Glucose* 88 mg/dL (60-115)
[2025-02-15 07:44] LABS: Phosphorus* 1.7 mg/dL (2.5-4.5)
[2025-02-15 07:45] VITALS: BP 156/82; PULSE 70; RESP 18; TEMP 36.5; O2SAT 95
[2025-02-15] MEDS: METOPROLOL TARTRATE 50 MG TABLET PO (08:07)
[2025-02-15] MEDS: POTASSIUM PHOS/SODIUM PHOS 250 MG TABLET PO ×2 (09:33→12:47)
[2025-02-15 11:46] VITALS: BP 153/81; PULSE 70; RESP 16; O2SAT 94
--- NOTE | 2025-02-15 14:15 | PC.NURSE ---
Nursing discharge note: Pt has been A&O, afebrile and VSS on day of discharge. IV fluids were discontinued and patient tolerated full liquid diet with no nausea or increased abdominal pain. Has continuous c/o bloat but reports it?s much improved since the day before and she?s not as distended as she previously had been after eating. Pt is ambulating halls independently with a steady gait. No c/o dizziness or pain this shift. Pt discharged home with her daughter at 1415. ?
--- NOTE | 2025-02-15 14:56 | PM.DS1 ---
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 (2) History of small bowel obstruction: Status: Acute Problem details: - recurrent, previous abdominal surgeries (3) Hypothyroid: Status: Chronic Problem details: -continue Levothyroxine (4) Hypertension: Status: Chronic Problem details: -continue lisinopril and metoprolol DS: Summary Hospital Course Hospital Course: FINAL DIAGNOSIS/FOLLOW UP ISSUES: recurrent small-bowel obstructions - may benefit from seeing GI and or nutrition for help with low residue and preventative dietary options BRIEF HOSPITAL COURSE: Patient was admitted for 3 days. Synopsis of acute inpatient issues are outlined above. Chronic medical conditions with notable findings outlined above. Her Gastrografin challenge demonstrated contrast in the rectum. She continued to have stools and felt better and discharged within about a day and half of the Gastrografin administration. No surgical intervention. DISCHARGE MEDICATIONS: See Reconciled list - SIGNIFICANT CHANGES: No new changes Specific instructions to the patient and follow-up are outlined below. REVIEW OF SYSTEMS No new chest pain or dyspnea Pain controlled No voiding difficulties Tolerating diet challenge PHYSICAL EXAM: CONSTITUTIONAL: Conversive, good historian. A/O. Knows setting and context. GENERAL: Well-developed and above ideal body weight, in no respiratory distress. VITAL SIGNS: see record. HEENT: Sclerae are anicteric. No petechiae. CARDIAC: rhythm is regular. There is no S3 or rub. No harsh murmurs. Extremities show trace edema with symmetrical pulses. PULM: good air entry with no wheeze. ABD: soft, mildly distended, good bowel sounds NEURO: Speech is fluent. A brief neurologic exam is negative. SKIN: No rashes, petechiae, concerning changes PSYCHIATRIC: Euthymic. DISPOSITION: home with daughter Time spent on discharge 37 minutes. Status at Discharge Functional status at discharge: independent ambulation Overall status at discharge: patient is progressing back to baseline Time Spent with Patient Time attestation: Total time spent providing and/or coordinating discharge services: Exam Const: Vital Signs, click to edit/add: Vital Signs - 24 hr 02/14/25 19:00 02/14/25 23:00 02/14/25 23:00 Temperature 98.4 F 98.2 F Pulse Rate [Pulse Oximeter] 85 83 83 Respiratory Rate 18 18 18 Blood Pressure [Le ft Arm] 187/98 H 180/102 H Pulse Oximetry 95 95 Oxygen Delivery Me thod Room Air Room Air 02/15/25 03:00 02/15/25 07:45 02/15/25 07:45 Temperature 97.8 F 97.7 F Pulse Rate [Pulse Oximeter] 73 70 70 Respiratory Rate 16 18 18 Blood Pressure [Le ft Arm] 135/72 156/82 H Pulse Oximetry 92 95 Oxygen Delivery Me thod Room Air Room Air 02/15/25 11:46 Temperature Pulse Rate [Pulse Oximeter] 70 Respiratory Rate 16 Blood Pressure [Le ft Arm] 153/81 H Pulse Oximetry 94 Oxygen Delivery Me thod Room Air DS: Data Data Completed and Pending Completed studies during hospitalization: Procedures Drainage of Stomach with Drainage Device, Via Natural or Artificial Opening (11/06/24) Labs on day of discharge: Labs from last 24 hours 02/15/25 06:20 Sodium 127 L Potassium 3.2 L Chloride 98 Carbon Dioxide 21 Anion Gap 8 BUN 6 L Creatinine 0.5 Estimated Creat Clear 32.79 Estimated GFR 91 Glucose 88 Calcium 8.3 L Phosphorus 1.7 L Albumin 3.2 L Discharge Plan Discharge Disposition: Home, Self-Care Date of Admission: 02/12/25 11:14 Attending Provider on Discharge: Carolyn Canchola Primary Care Provider: Akila Cerda Condition: Unchanged Anticipated Discharge Date/Time: 02/15/25 11:51 Discharge Medications: New Phospha 250 Neutral 250 mg Tablet 1 tab PO QID Qty: 60 0RF Rx Instructions: may stop this supplement once you are eating a normal diet Continued omega 5-ynx-jtf-fish oil [Fish Oil] 60-90-500 mg capsule 1 cap PO BID levothyroxine 75 mcg tablet 75 mcg PO DAILY metoprolol tartrate 50 mg tablet 50 mg PO BID lisinopril 5 mg tablet 7.5 mg PO HS cetirizine 10 mg tablet 10 mg PO HS multivitamin Tablet 1 tab PO DAILY acetaminophen 500 mg capsule 500 - 1,000 mg PO Q6H MDD 3000mg PRN calcium carbonate-vitamin D3 [Calcium 500 + D] 500 mg-5 mcg (200 unit) tablet 1 tab PO DAILY naproxen sodium 220 mg tablet 220 mg PO DAILY Ocutabs Tablet 1 tab PO DAILY Mag Glycinate 100 mg tablet 200 mg PO QHS cyclobenzaprine 10 mg tablet 10 mg PO TID PRN Discharge Orders: Discharge Order (Routine); Ordered 02/15/25 Ordered By: Carolyn Canchola Patient Education: Phosphate Supplement (By mouth), Bowel Obstruction (DC) Activity Level: No Restrictions and Activity as Tolerated Discharge Diet: Regular Diet Detail: see print out to getting back to a normal diet Follow Up Appointments: Akila Cerda MD [Primary Care Provider] - 02/28/25 12:45 pm (Follow-up at [facility] with PCP.) Forms: [employer] Info Instructions
== END 2025-02-15 14:15 | disposition home or self-care (01) | DRG 390 ==
LOC: ED 21:50 → MEDSURG 22:16
PROVIDERS: Family Medicine; Admitting Provider Internal Medicine; Emergency Provider Emergency Medicine Emergency Medical Services; PCP Family Medicine; Visit Provider Internal Medicine
DX: K56.600 Partial intestinal obstruction, unspecified as to cause (principal); R00.0 Tachycardia, unspecified; E86.0 Dehydration; I12.9 Hypertensive chronic kidney disease with stage 1 through stage 4 chronic kidney disease, or unspecified chronic kidney disease; N18.9 Chronic kidney disease, unspecified; I48.91 Unspecified atrial fibrillation; I44.7 Left bundle-branch block, unspecified; K21.9 Gastro-esophageal reflux disease without esophagitis; E03.9 Hypothyroidism, unspecified
CPT/HCPCS: 36415; 74018; 74019; 74177; 80048; 80069; 82565; 83605; 85025; 85027; 86140; 94761; 99285; A9270; G0378; J1171; J2405; J7030; Q9967

== ENCOUNTER 2025-02-19 12:01 | Inpatient (IN) | payer MEDICARE, BC, SELFPAY ==
--- OUTSIDE RECORDS SUMMARY | 2025-02-19 12:03 | XMS_ITS | Clinical Summary ---
Author Organization [facility] Address [address] [place] [id number] Care Team Providers Care Childcare Center Director Name Role Phone Kathleen Gorman MD Unavailable Unavailable Janay Garcia Magda Unavailable [phone] Akila Cerda MD Primary Care Prov [...] bedtime. 0 08/18/20 21 Active vit C-vit T-saorvk-ctudngwj -omega (OCUVITE) 250-5-1 mg Take 1 Capsule [...] 09/07/2021 Overview (09/07/2021): Found on [facility] 07/21/21 T10, T11, L1 on [...] Encounters Date Type Department Care Team Description 02/14/2025 Orders Only [facility] Scanner 1 scan: (1-Ord) [facility], XR ABD 1V - GASTRO CHALLENGE, 02/14/2025 02/13/2025 Orders Only [facility] Scanner 1 scan: (1-Ord) [facility], XR ABDOMEN 1V, 02/13/2025 02/11/2025 Orders Only [facility] Scanner 1 scan: (1-Ord) [place], XR ABDOMEN MIN 2V, 02/11/2025 02/11/2025 Orders Only [facility] Scanner 1 scan: (1-Ord) [facility], CT ABDOMEN PELVIS W CON, 02/11/2025 01/24/2025 9:00 AM AUTOMOBILE RENTAL CLERK Office Visit [facility] [address] [place] [address] Martínez Rojas MD Consult (Bowel obstructions - 2 surgeries & 3 hospitalizations recently, low fiber diet - how long, fluid intake) 01/23/2025 8:15 AM AUTOMOBILE RENTAL CLERK Office Visit [facility] [address] [place] [address] Akila Cerda MD Blood Pressure (Increased Lisinopril) 01/23/2025 Travel 01/15/2025 9:00 AM AUTOMOBILE RENTAL CLERK Procedure Only [facility] [address] [place] [address] Marya Delaney L Ac Acupuncture 01/15/2025 Travel 01/07/2025 2:00 PM AUTOMOBILE RENTAL CLERK Procedure Only [facility] [address] [place] [address] Marya Delaney L Ac Acupuncture 01/07/2025 Travel 12/25/2024 1:00 PM AUTOMOBILE RENTAL CLERK Procedure Only [facility] [address] [place] [address] Marya Delaney L Ac Acupuncture (Initial) 12/25/2024 Travel 12/13/2024 9:00 AM AUTOMOBILE RENTAL CLERK Office Visit [facility] [address] [place] [address] Akila Cerda MD Medicare ANNUAL (subsequent) Visit (89 yo female) 12/13/2024 Travel from Last 3 Months Immunizations Immunization Administration Dates Next Due AMB INFLUENZA IIV3 (AGE 65+ YRS) PF (Flu Clinic Only) 09/12/2019,08/25/2017 AMB Influenza, IIV3 (Age >=3 years)(Flu Clinic Only) 09/06/2013,09/27/2012,09/22/2011,09/16,09/19/2009 Amb Influenza, Inact (High-d ose) (Flu Clinic Only) 09/05/2015 COVID-19 VACCINE SPIKEVAX (M ODERNA 50MCG/0.5ML) 12YO+ PFS 09/07/2024,10/13/2023 COVID-19 vaccine (Pfizer-Bio NTech 30mcg/0.3mL) 12YO+ BIVALENT PF, MDV 04/19/2023,09/09/2022 COVID-19 vaccine (Pfizer-Bio NTech 30mcg/0.3mL) 12YO+ KAROLINA-SUCROSE PF, MDV 03/22/2022 COVID-19 vaccine (Pfizer-Bio NTech 30mcg/0.3mL) PF, MDV 09/03/2021,01/31/2021,01/10/2021 Hepatitis A (Adult) 05/18/2004,11/04/2003 Hepatitis B (Adult) 04/28/1990,12/29/1989,1989 Influenza A (H1N1), Inactivated 03/16/2010 Influenza A (H1N1), Inactiva gail (Age >=3 Years) 03/16/2010 Influenza, High-dose Inactivated 08/20/2016,0901/2014 Influenza, IIV3 (Age 6-35 mos) 09/22/2011 Influenza, [...] on file Legal Sex Female 6:18 AM AUTOMOBILE RENTAL CLERK Gender Identity Not on file Sexual Orientation [...] Comments Blood Pressure 146/67 01/24/2025 9:05 AM AUTOMOBILE RENTAL CLERK Pulse 69 01/24/2025 9:05 AM AUTOMOBILE RENTAL CLERK Temperature 36.6 C (97.9 F) 11/12/2022 10:16 AM AUTOMOBILE RENTAL CLERK Respiratory Rate 18 08/18/2021 8:28 AM CDT Oxygen Saturation 97% 01/24/2025 9:05 AM AUTOMOBILE RENTAL CLERK Inhaled Oxygen Concentration - - Weight 57.2 kg (126 lb 3.2 oz) 01/24/2025 9:05 A M AUTOMOBILE RENTAL CLERK Height 160 cm (5' 3) 12/13/2024 9:06 AM AUTOMOBILE RENTAL CLERK Body Mass Index 22.36 12/13/2024 9:06 AM AUTOMOBILE RENTAL CLERK Plan of Treatment Upcoming Encounters Date Type Department Care Team (Late st Contact Info) Description 02/28/2025 12:45 PM CDT Office Visit [facility] [address] [place] [address] Akila Cerda MD [address] [place] [address] Health Maintenance Due Date Last Done Comments [...] Procedure Name Priority Date/Time Associated Diagnosis Comments SCAN-RADIOLOGY REPORT 02/14/2025 12:00 AM CDT SCAN-RADIOLOGY REPORT 02/13/2025 12:00 AM CDT SCAN-RADIOLOGY REPORT 02/11/2025 12:00 AM CDT SCAN-CT INTERPRETATION 12:00 AM CDT TSH Routine 12/13/2024 10:21 AM AUTOMOBILE RENTAL CLERK Acquired hypothyroidism BASIC METABOLIC PANEL Routine 12/13/2024 10:21 AM AUTOMOBILE RENTAL CLERK HTN (hypertension) XR DXA BONE DENSITY 2 SITES AXIAL Routine 08/18/2021 9:54 AM CDT Osteoporosis, unspecified osteoporosis type, unspecified pathological fracture presence from Last 3 Months or Most Recently Relevant to Health Maintenance Results * SCAN-RADIOLOGY REPORT (02/14/2025 12:00 AM CDT) Only the most recent of3 resultswithin the time period is included. Anatomical Region Laterality Modality Other us Scanner OTHER Final Result * SCAN-CT INTERPRETATION (02/11/2025 12:00 AM CDT) Anatomical Region Laterality Modality Other us Scanner OTHER Final Result * TSH (12/13/2024 10:21 AM AUTOMOBILE RENTAL CLERK) TSH 0.40 0.40 - 4.50 mIU/L [facility] Blood BLOOD SPECIMEN / Unknown 12/13/2024 10:21 AM AUTOMOBILE RENTAL CLERK 12/13/2024 10:21 AM AUTOMOBILE RENTAL CLERK Akila Cerda MD CHEMISTRY Fi nal Result Performing Organization Address City/[facility]/ZIP Co de Phone Number [facility] [address] [place] [address], [facility] [address] * (ABNORMAL) BASIC METABOLIC PANEL (12/13/2024 10:21 AM AUTOMOBILE RENTAL CLERK) Pathologist [facility] GLUCOSE 91 65 - 99 mg/dL [facility] Comment: Fasting reference interval UREA NITROGEN (BUN) 27(H) 7 - 25 mg/dL [facility] CREATININE 0.84 0.60 - 0.95 mg/dL [facility] EGFR 67 > OR = 60 mL/min/1.7 3m2 [facility] BUN/CREATININE RATIO 32(H) 6 - 22 (calc) [...] BLOOD SPECIMEN / Unknown 12/13/2024 10:21 AM AUTOMOBILE RENTAL CLERK 12/13/2024 10:21 AM AUTOMOBILE RENTAL CLERK Akila Cerda MD CHEMISTRY Fi nal Result [facility] [address] [place] [address], [facility] [address] [place] [address] * (ABNORMAL) XR DXA BONE DENSITY 2 [...] Patients: Results are automatically released to your [employer] ([employer]) account once available, in compliance with federal regulations. This means that you may see your results before your provider has had a chance to review them. Please allow 2-3 business days for your provider to comment on the results. XR DXA Bone Mineral Density (BMD) EXAM LOCATION: [address] [address] PATIENT NAME: Areli Lee DATE OF : [...] two scanners are made by the same curtain cutter hand. PROCEDURE: Dual-energy x-ray absorptiometry performed with routine [...] Most Recently Relevant to Health Maintenance Insurance [place] BLUE MR PB ONLY MEDICARE PART B HB ONLY [facility] MEDICARE PROVIDER BASED Advance Directives Documents on File Type Date Recorded Patient Acid Dipper Expl anation Healthcare Directive 09/10/2021 2:29 PM H EALTHCARE DIRECTIVE, , 11/19/99 Care Teams Childcare Center Director Relationship Specialty Start Date End Date Akila Cerda MD [place] [id number] PCP - General Family Practice 04/07/18 Kathleen Gorman MD Surgery - Orthopedics 05/22/12 Janay Garcia AuD Audiology 09/22/07
[2025-02-19 12:09] VITALS: BP 158/81; PULSE 95; RESP 18; TEMP 36.8; O2SAT 96; BMI 21.1
--- NOTE | 2025-02-19 12:41 | ED_ITS ---
HPI - General Adult General Date Seen: 02/19/25 Chief complaint: Abdominal Pain Stated complaint: Abdominal Pain Time Seen by Provider: 02/19/25 12:34 Source: patient Mode of arrival: ambulatory Limitations: no limitations History of Present Illness HPI narrative: Patient is an 89-year-old female presenting to the emergency department for abdominal distention increased belching. She is concerned she has another small bowel obstruction. She has had 6 separate small bowel obstructions since 2020 and has required to previous surgeries. She was admitted for this on 02/11/25 and discharged 4 days ago. GI states she was doing well at discharge and 1 or 2 days after she was discharged started noticing distention to her abdomen again consistent with previous small-bowel obstructions and having some mild abdominal discomfort and nausea. Denies currently any pain. Also denies any current nausea. States she had a very small bowel movement this morning but it was formed and bigger than what she typically sees with her bowel obstructions. She states her distention and belching is consistent with previous bowel obstructions but is passing gas. Denies fevers, chills, chest pain, shortness of breath, headaches, dizziness, weakness, numbness, abdominal pain, diarrhea, constipation. No other concerns noted. Related Data Home Medications ?Medication ?Instructions ?Recorded ?Confirmed cetirizine 10 mg tablet 10 mg PO HS 08/05/22 02/12/25 levothyroxine 75 mcg tablet 75 mcg PO DAILY 08/05/22 02/11/25 lisinopril 5 mg tablet 7.5 mg PO HS 08/05/22 02/11/25 metoprolol tartrate 50 mg tablet 50 mg PO BID 08/05/22 02/11/25 multivitamin 1 tab PO DAILY 08/05/22 02/11/25 omega 1-amk-oxz-fish oil 60 mg-90 1 cap PO BID 04/12/23 02/11/25 mg-500 mg capsule (Fish Oil) acetaminophen 500 mg capsule 500 - 1,000 mg PO Q6H PRN 10/28/24 02/11/25 calcium 500 mg (as 1 tab PO DAILY 02/12/25 02/12/25 carbonate)-vitamin D3 5 mcg (200 unit) tablet (Calcium 500 + D) cyclobenzaprine 10 mg tablet 10 mg PO TID PRN 02/12/25 02/12/25 magnesium glycinate 100 mg (as 200 mg PO QHS 02/12/25 02/12/25 glycinate) tablet (Mag Glycinate) naproxen sodium 220 mg tablet 220 mg PO DAILY 02/12/25 02/12/25 vitamin A-vitamin C-vit E-min 1 tab PO DAILY 02/12/25 02/12/25 tablet (Ocutabs tablet) Previous Rx's ?Medication ?Instructions ?Recorded sodium di- and 1 tab PO QID #60 tabs 02/15/25 monophosphate-potassium phos monobasic 250 mg tablet (Phospha Neutral) Allergies Allergy/AdvReac Type Severity Reaction Status Date / Time cat dander Allergy Verified 02/11/25 22:42 perfume Allergy Verified 02/11/25 22:42 Review of Systems Status of ROS: Reports: 10 or more systems reviewed and unremarkable except as noted in History and below [facility] Medical History Osteoarthritis of right hip ?M16.11 - Unilateral primary osteoarthritis, right hip (ICD-10) Tendinitis involving right hip abductors ?M76.891 - Other specified enthesopathies of right lower limb, excluding foot (ICD-10) Steatosis of liver ?K76.0 - Fatty (change of) liver, not elsewhere classified (ICD-10) CKD (chronic kidney disease) ?N18.9 - Chronic kidney disease, unspecified (ICD-10) Partial hamstring tear ?S76.319A - Strain of muscle, fascia and tendon of the posterior muscle group at thigh level, unspecified thigh, initial encounter (ICD-10) Right hip impingement syndrome ?M25.851 - Other specified joint disorders, right hip (ICD-10) Hypertension ?I10 - Essential (primary) hypertension (ICD-10) Left bundle branch block ?I44.7 - Left bundle-branch block, unspecified (ICD-10) Small bowel obstruction ?K56.609 - Unspecified intestinal obstruction, unspecified as to partial versus complete obstruction (ICD-10) Postoperative ileus ?K91.89 - Other postprocedural complications and disorders of digestive system (ICD-10) ?K56.7 - Ileus, unspecified (ICD-10) Postoperative hypoxia ?R09.02 - Hypoxemia (ICD-10) ?Z98.890 - Other specified postprocedural states (ICD-10) Anemia following surgery ?D64.9 - Anemia, unspecified (ICD-10) Strain of right hip ?S76.011A - Strain of muscle, fascia and tendon of right hip, initial encounter (ICD-10) Sigmoid diverticulosis ?K57.30 - Diverticulosis of large intestine without perforation or abscess without bleeding (ICD-10) Arthritis ?M19.90 - Unspecified osteoarthritis, unspecified site (ICD-10) GERD (gastroesophageal reflux disease) ?K21.9 - Gastro-esophageal reflux disease without esophagitis (ICD-10) Atrial fibrillation ?I48.91 - Unspecified atrial fibrillation (ICD-10) Hypothyroid ?E03.9 - Hypothyroidism, unspecified (ICD-10) Surgical History S/P laparotomy with lysis of adhesions ?Z98.890 - Other specified postprocedural states (ICD-10) 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) ?Z98.890 - Other specified postprocedural states (ICD-10) History of ankle surgery (12/04/92) ?Z98.890 - Other specified postprocedural states (ICD-10) 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 She lives in [place] with her . She does not smoke. She drinks 1 glass of wine a day. What is your current living situation?: I presently have a place to live Problems where you live: no known problems Problems where you live details: n/a In the past 12 months, utilities in danger of being shut off: no In past 12 months, lack of transportation kept you from medical appts, meetings, work, or getting things needed for daily living: no In the past 12 mos, have been you worried that your food would run out before you had money to buy more?: never true In the past 12 mos, the food you bought just didn't last and you didn't have money to buy more?: never true Highest level of school completed/degree received: Associate degree: occupational, technical, vocational program Smoking Status: Former smoker What tobacco products do you use: cigarettes Smoking quit date/years: >15 years ago Do you use any of these nicotine containing products: None Second hand tobacco smoke exposure: No How often do you have a drink containing alcohol: 4 or more times a week Alcohol type: wine Alcohol type details: occasionally eb saldana How many standard drinks containing alcohol do you have on a typical day: 1 or 2 How often do you have six or more drinks on one occasion: Never AUDIT-C Alcohol total score: 4 Non-prescribed substance use: denies use Caffeine: Yes How often does anyone, including family, friends and others, physically hurt you : never How often does anyone, including family, friends and others, insult or talk down to you: never How often does anyone, including family, friends and others, threaten you with harm: never How often does anyone, including family, friends and others, scream or curse at you: never service: No Exam Narrative: Exam Narrative: Const: Well-nourished, Well-developed, in no distress Eyes: PERRL, no conjunctival injection, and symmetrical lids HENT: Atraumatic external nose and ears. Moist mucous membranes. Neck: Symmetric, trachea midline, No thyromegaly. CVS: RRR, No murmurs or gallops. Peripheral pulses 2+ and equal in all extremities RESP: Unlabored respiratory effort. Clear to auscultation bilaterally. GI: Nontender but is distended, No rebound or guarding. MSK:Extremities w/o deformity, Normal Active ROM Skin: Warm, Dry. No rashes or lesions. Neuro: Normal Muscle tone, No focal neurological deficits. Psych: Awake, Alert, & Oriented x3. Appropriate mood and affect. Const: Vital Signs, click to edit/add: Vital Signs - 24 hr 02/19/25 12:09 02/19/25 14:09 Temperature 98.3 F 99.2 F Pulse Rate [Pulse Oximeter] 95 83 Respiratory Rate 18 18 Blood Pressure [Ri ght Upper Arm] 158/81 H 167/89 H Pulse Oximetry 96 96 Oxygen Delivery Me thod Room Air Room Air Course Vital Signs Vital signs: Initial Vital Signs Temperature 98.3 F 02/19/25 12:09 Temperature Source Temporal Artery Scan 02/19/25 12:09 Pulse Rate 95 02/19/25 12:09 Respiratory Rate 18 02/19/25 12:09 Blood Pressure 158/81 H 02/19/25 12:09 Blood Pressure Mean 106 H 02/19/25 12:09 Pulse Oximetry 96 02/19/25 12:09 Oxygen Delivery Method Room Air 02/19/25 12:09 Vital Signs Temperature 98.3 F 02/19/25 12:09 Pulse Rate 95 02/19/25 12:09 Respiratory Rate 18 02/19/25 12:09 Blood Pressure 158/81 H 02/19/25 12:09 Pulse Oximetry 96 02/19/25 12:09 Oxygen Delivery Method Room Air 02/19/25 12:09 Temperature 99.2 F 02/19/25 14:09 Pulse Rate 83 02/19/25 14:09 Respiratory Rate 18 02/19/25 14:09 Blood Pressure 167/89 H 02/19/25 14:09 Pulse Oximetry 96 02/19/25 14:09 Oxygen Delivery Method Room Air 02/19/25 14:09 Medical Decision Making [facility] Narrative Medical decision making narrative: Patient is a 89-year-old female presenting to the emergency department for concerned she is having a small bowel obstruction. Was recently discharged with a partial small bowel obstruction was doing well until she moved back to a regular diet. Will do a CT scan to re-evaluate her bowel obstruction. Will also order a CBC, BMP, liver panel. She is not having any other symptoms at this time. Patient's lab work shows no concerning abnormalities other than some mild hyponatremia. Previous hospital admission was between 127 and 132. Otherwise no concerning findings seen. Patient CT scan returned showing signs of a small- bowel obstruction. There is some mesenteric stranding like may be postoperative of a this does not definitively rule out evolving inflammation or ischemia. Patient has been doing well and did eventually [place] a small amount of pain medication. I did speak to Dr. Campbell who is in agreement that the patient should be admitted. Patient is agreeable this plan. Patient is accepted by hospitalist service Lab Data Labs: Lab Results 02/19/25 Range/Units 13:41 WBC 9.70 (4.50-11.00) K/uL RBC 4.47 (4.00-5.20) m/uL Hgb 13.4 (12.0-16.0) gm/dL Hct 39.6 (33.0-51.0) % MCV 89 (80-100) fL MCH 30 (26-34) pg MCHC 34 (32-36) gm/dL RDW Coeff of Albertina 12.7 (11.5-15.5) % Plt Count 338 (140-440) K/uL Neut % (Auto) 76.5 H (42.0-72.0) % Lymph % (Auto) 11.6 L (20-44) % [place] % (Auto) 9.2 (0.0-11.0) % Eos % (Auto) 2.1 (0.0-7.0) % Baso % (Auto) 0.2 (0.0-3.0) % Neut # (Auto) 7.40 H (1.7-7.0) K/uL Lymph # (Auto) 1.10 (0.90-2.90) K/uL [place] # (Auto) 0.90 (0.00-0.90) K/UL Eos # (Auto) 0.20 (0.00-0.50) K/uL Baso # (Auto) 0.02 (0.00-0.30) K/uL Abs Immat Gran (auto) 0.04 (0.00-0.30) K/uL Imm/Tot Granulo (auto) 0.4 % Sodium 125 L (135-149) mmol/L Potassium 3.9 (3.6-5.1) mmol/L Chloride 86 L (96-114) mmol/L Carbon Dioxide 26 (20-32) mmol/L Anion Gap 13 (7-15) mEq/L BUN 15 (7-30) mg/dL Creatinine 0.7 (0.5-1.5) mg/dL Estimated Creat Clear 32.79 Estimated GFR 84 ml/min Glucose 96 (60-115) mg/dL Calcium 9.6 (8.4-10.6) mg/dL Total Bilirubin 0.9 (0.1-1.5) mg/dL Direct Bilirubin 0.4 (0.0-0.5) mg/dL AST 38 H (12-35) U/L ALT 22 (4-35) U/L Alkaline Phosphatase 68 (40-150) U/L Total Protein 7.1 (6.0-8.3) g/dL Albumin 4.2 (3.3-5.0) g/dL Imaging Data CT scan abdomen and pelvis: Attestation: I have reviewed the pertinent imaging results. Radiologist's impression: 1. Small-bowel obstruction with transition point in the left lower quadrant near the enteroenterostomy. No pneumatosis or free intraperitoneal gas. Mesenteric stranding and trace pelvic free fluid may be postoperative, however, evolving inflammation or ischemia could also produce this appearance. 2. Colonic diverticulosis without evidence of acute diverticulitis. Dictated by Jeffy Castro MD @ 02/19/2025 1:59:01 PM Please note that all CT scans at this facility use dose modulation, iterative reconstruction, and/or weight-based dosing when appropriate to reduce radiation dose to as low as reasonably achievable. Dictated by: Jeffy Castro MD @ 02/19/2025 13:59:42 Discharge Plan Discharge Clinical Impression: Small bowel obstruction Patient Disposition: Admitted As Observation Condition: Stable Prescriptions: No Action omega 5-omg-sdr-fish oil [Fish Oil] 60-90-500 mg capsule 1 cap PO BID levothyroxine 75 mcg tablet 75 mcg PO DAILY metoprolol tartrate 50 mg tablet 50 mg PO BID lisinopril 5 mg tablet 7.5 mg PO HS cetirizine 10 mg tablet 10 mg PO HS multivitamin Tablet 1 tab PO DAILY acetaminophen 500 mg capsule 500 - 1,000 mg PO Q6H MDD 3000mg PRN calcium carbonate-vitamin D3 [Calcium 500 + D] 500 mg-5 mcg (200 unit) tablet 1 tab PO DAILY naproxen sodium 220 mg tablet 220 mg PO DAILY Ocutabs Tablet 1 tab PO DAILY Mag Glycinate 100 mg tablet 200 mg PO QHS cyclobenzaprine 10 mg tablet 10 mg PO TID PRN Phospha 250 Neutral 250 mg Tablet 1 tab PO QID Qty: 60 0RF Rx Instructions: may stop this supplement once you are eating a normal diet Follow Up/Referrals: Akila Cerda MD [Primary Care Provider] -
[2025-02-19 13:47] LABS: Basophils Absolute Auto 0.02 K/uL (0.00-0.30); Basophils Percent Auto 0.2 % (0.0-3.0); Eosinophils Percent Auto 2.1 % (0.0-7.0); Hematocrit 39.6 % (33.0-51.0); Hemoglobin* 13.4 gm/dL (12.0-16.0); Immature Granulocytes Abs Auto 0.04 K/uL (0.00-0.30); Immature Granulocytes Pct Auto 0.4 %; Lymphocytes Percent Auto 11.6 % (20-44); Mean Corpuscular HGB Conc 34 gm/dL (32-36); Mean Corpuscular Hemoglobin 30 pg (26-34); Mean Corpuscular Volume 89 fL (80-100); Monocytes Percent Auto 9.2 % (0.0-11.0); Neutrophils Percent Auto 76.5 % (42.0-72.0); Platelet Count* 338 K/uL (140-440); RDW Coefficient of Variation % 12.7 % (11.5-15.5); Red Blood Count 4.47 m/uL (4.00-5.20)
[2025-02-19 13:52] LABS: Slide Review Reflex No
--- NOTE | 2025-02-19 13:57 | PM.GSCN ---
History of Present Illness Consult details Date Seen: 02/19/25 Consult date: 02/19/25 Narrative: Patient presents with abdominal pain and distension, concerning for an obstruction. She has a history of multiple hospitalizations related to a small-bowel obstruction, most recently last week. During her most recent hospitalization she was given some Gastrografin and discharged home on 02/14/2025. At home she continued to take clear liquids until Tuesday when she advanced to more solid food. After advancing she started to have some abdominal pain and felt bloated. She switch back to clear liquids on Tuesday but her distension has persisted. Denies any nausea or vomiting. She did pass gas and have a little bowel movement this morning. She feels like gas is moving through her abdomen, but is most concerned about how distended it is. Since 2020 she has had over 6 hospitalizations associated with small-bowel obstruction. She has had 2 surgeries for this issue-lysis of adhesions x2, one with a small-bowel resection. Review of Systems Status of ROS: Reports: 6 or more systems reviewed and unremarkable except as noted in History and below [facility] Medical History Osteoarthritis of right hip ?M16.11 - Unilateral primary osteoarthritis, right hip (ICD-10) Tendinitis involving right hip abductors ?M76.891 - Other specified enthesopathies of right lower limb, excluding foot (ICD-10) Steatosis of liver ?K76.0 - Fatty (change of) liver, not elsewhere classified (ICD-10) CKD (chronic kidney disease) ?N18.9 - Chronic kidney disease, unspecified (ICD-10) Partial hamstring tear ?S76.319A - Strain of muscle, fascia and tendon of the posterior muscle group at thigh level, unspecified thigh, initial encounter (ICD-10) Right hip impingement syndrome ?M25.851 - Other specified joint disorders, right hip (ICD-10) Hypertension ?I10 - Essential (primary) hypertension (ICD-10) Left bundle branch block ?I44.7 - Left bundle-branch block, unspecified (ICD-10) Small bowel obstruction ?K56.609 - Unspecified intestinal obstruction, unspecified as to partial versus complete obstruction (ICD-10) Postoperative ileus ?K91.89 - Other postprocedural complications and disorders of digestive system (ICD-10) ?K56.7 - Ileus, unspecified (ICD-10) Postoperative hypoxia ?R09.02 - Hypoxemia (ICD-10) ?Z98.890 - Other specified postprocedural states (ICD-10) Anemia following surgery ?D64.9 - Anemia, unspecified (ICD-10) Strain of right hip ?S76.011A - Strain of muscle, fascia and tendon of right hip, initial encounter (ICD-10) Sigmoid diverticulosis ?K57.30 - Diverticulosis of large intestine without perforation or abscess without bleeding (ICD-10) Arthritis ?M19.90 - Unspecified osteoarthritis, unspecified site (ICD-10) GERD (gastroesophageal reflux disease) ?K21.9 - Gastro-esophageal reflux disease without esophagitis (ICD-10) Atrial fibrillation ?I48.91 - Unspecified atrial fibrillation (ICD-10) Hypothyroid ?E03.9 - Hypothyroidism, unspecified (ICD-10) Surgical History S/P laparotomy with lysis of adhesions ?Z98.890 - Other specified postprocedural states (ICD-10) 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) ?Z98.890 - Other specified postprocedural states (ICD-10) History of ankle surgery (12/04/92) ?Z98.890 - Other specified postprocedural states (ICD-10) 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 She does not smoke. She drinks 1 glass of wine a day. What is your current living situation?: I presently have a place to live Problems where you live: no known problems Problems where you live details: n/a In the past 12 months, utilities in danger of being shut off: no In past 12 months, lack of transportation kept you from medical appts, meetings, work, or getting things needed for daily living: no In the past 12 mos, have been you worried that your food would run out before you had money to buy more?: never true In the past 12 mos, the food you bought just didn't last and you didn't have money to buy more?: never true Highest level of school completed/degree received: Associate degree: occupational, technical, vocational program Smoking Status: Former smoker What tobacco products do you use: cigarettes Smoking quit date/years: >15 years ago Do you use any of these nicotine containing products: None Second hand tobacco smoke exposure: No How often do you have a drink containing alcohol: 4 or more times a week Alcohol type: wine Alcohol type details: occasionally a baileys How many standard drinks containing alcohol do you have on a typical day: 1 or 2 How often do you have six or more drinks on one occasion: Never AUDIT-C Alcohol total score: 4 Non-prescribed substance use: denies use Caffeine: Yes How often does anyone, including family, friends and others, physically hurt you: never How often does anyone, including family, friends and others, insult or talk down to you: never How often does anyone, including family, friends and others, threaten you with harm: never How often does anyone, including family, friends and others, scream or curse at you: never service: No Meds Home Medications and Allergies Home Medications ?Medication ?Instructions ?Recorded ?Confirmed ?Type cetirizine 10 mg tablet 10 mg PO HS 08/05/22 02/12/25 History levothyroxine 75 mcg tablet 75 mcg PO DAILY 08/05/22 02/11/25 History lisinopril 5 mg tablet 7.5 mg PO HS 08/05/22 02/11/25 History metoprolol tartrate 50 mg tablet 50 mg PO BID 08/05/22 02/11/25 History multivitamin 1 tab PO DAILY 08/05/22 02/11/25 History omega 9-kdk-lhc-fish oil 60 mg-90 1 cap PO BID 04/12/23 02/11/25 History mg-500 mg capsule (Fish Oil) acetaminophen 500 mg capsule 500 - 1,000 mg PO Q6H PRN 10/28/24 02/11/25 History calcium 500 mg (as 1 tab PO DAILY 02/12/25 02/12/25 History carbonate)-vitamin D3 5 mcg (200 unit) tablet (Calcium 500 + D) cyclobenzaprine 10 mg tablet 10 mg PO TID PRN 02/12/25 02/12/25 History magnesium glycinate 100 mg (as 200 mg PO QHS 02/12/25 02/12/25 History glycinate) tablet (Mag Glycinate) naproxen sodium 220 mg tablet 220 mg PO DAILY 02/12/25 02/12/25 History vitamin A-vitamin C-vit E-min 1 tab PO DAILY 02/12/25 02/12/25 History tablet (Ocutabs tablet) Allergies Allergy/AdvReac Type Severity Reaction Status Date / Time cat dander Allergy Verified 02/11/25 22:42 perfume Allergy Verified 02/11/25 22:42 Exam Narrative: Exam Narrative: General: Alert and oriented, no acute distress Respiratory: Equal breath rise bilaterally, maintained on room air CV: Well perfused Abdomen: Distended, tympanic. Soft. No guarding or rebound. No pain with palpation. Positive bowel sounds. Const: Vital Signs, click to edit/add: Vital Signs - 24 hr 02/19/25 12:09 Temperature 98.3 F Pulse Rate [Pulse Oximeter] 95 Respiratory Rate 18 Blood Pressure [Ri ght Upper Arm] 158/81 H Pulse Oximetry 96 Oxygen Delivery Me thod Room Air Results Labs Labs: Abnormal lab results 02/19/25 Range/Units 13:41 Neut % (Auto) 76.5 H (42.0-72.0) % Lymph % (Auto) 11.6 L (20-44) % Neut # (Auto) 7.40 H (1.7-7.0) K/uL All other labs normal. Imaging Abdomen CT scan report/results: report reviewed and image reviewed Progress Note:A&P Assessment and plan (1) Partial small bowel obstruction: Status: Acute Assessment and Plan: Patient is an 89-year-old female who presents with increasing abdominal distention and pain. She has had multiple hospitalizations for small-bowel obstruction, most recently last week. Workup was obtained in the emergency department. No leukocytosis. Her abdomen is distended and tympanic, but soft with no evidence of peritonitis. She did pass gas and have a small bowel movement this morning. CT scan shows evidence of a small-bowel obstruction with transition in the left lower quadrant. Some mesenteric stranding could represent inflammation versus ischemia per radiologist. Clinically, low concern for ischemia at this time given benign exam, no evidence of leukocytosis and vital signs stable. Would recommend starting with conservative management. -NPO, IV fluids -okay to hold off on NG tube at this time, consider placement it patient starts to develop nausea -encourage ambulation Will continue to follow patient while in the hospital. Please call with any acute clinical changes.
[2025-02-19 13:58] LABS: Albumin* 4.2 g/dL (3.3-5.0); Chloride* 86 mmol/L (96-114)
[2025-02-19 13:59] LABS: Potassium* 3.9 mmol/L (3.6-5.1); Sodium* 125 mmol/L (135-149)
[2025-02-19 14:01] LABS: Alanine Aminotransferase* 22 U/L (4-35); Anion Gap 13 mEq/L (7-15); Aspartate Amino Transferase* 38 U/L (12-35); Blood Urea Nitrogen* 15 mg/dL (7-30); Carbon Dioxide* 26 mmol/L (20-32); Creatinine* 0.7 mg/dL (0.5-1.5); Est. Creatinine Clearance* 32.79; Estimated Glomerular Filt Rate 84 ml/min
[2025-02-19 14:02] LABS: Alkaline Phosphatase* 68 U/L (40-150); Bilirubin Direct* 0.4 mg/dL (0.0-0.5); Bilirubin Total* 0.9 mg/dL (0.1-1.5); Calcium* 9.6 mg/dL (8.4-10.6); Glucose* 96 mg/dL (60-115); Total Protein* 7.1 g/dL (6.0-8.3)
[2025-02-19 14:09] VITALS: BP 167/89; PULSE 83; RESP 18; TEMP 37.3; O2SAT 96
[2025-02-19] MEDS: MORPHINE 4 MG/ML INJ 2 MG IVP (14:53)
[2025-02-19] MEDS: ONDANSETRON 2 MG/ML inj 4 MG IVP (15:05)
[2025-02-19 15:23] VITALS: BP 178/84; PULSE 79; RESP 16; TEMP 36.4; O2SAT 89; BMI 21.3
[2025-02-19 15:58] LABS: Magnesium* 1.4 mg/dL (1.5-2.6); Phosphorus* 4.1 mg/dL (2.5-4.5)
--- NOTE | 2025-02-19 16:22 | PM.IMHP1 ---
Assessment and Plan Assessment and plan (1) Partial small bowel obstruction: Problem comment: --recurrent, 6th occurrence since 2020, requiring 2 previous surgeries - discussed with gen surg, afternoon of 02/13 - Gastrografin challenge successfully passed. Status: Acute (2) Hypertension: Problem comment: -continue lisinopril and metoprolol Status: Chronic (3) History of small bowel obstruction: Problem comment: - recurrent, previous abdominal surgeries Status: Acute Plan 89-year-old female with recurrent small-bowel obstruction. Discharged from the hospital 3 days ago with still ongoing symptoms. Possibly partial small-bowel obstruction based on current symptom reports. Consult surgery. For now conservative management. Address and manage electrolyte abnormalities including low sodium and magnesium. Continue home blood pressure medications. Increased protein in the diet to help with low sodium and low phosphate when patient is able to tolerate oral fluids. Total time spent today is 70 minutes in coordination of care, reviewing outside records, discussing with patient, surgeon, other providers ongoing plan of care for small-bowel obstruction. Hospitalist- H&P: HPI History of Present Illness Date Seen: 02/19/25 Chief complaint: Abdominal Pain Narrative: Areli Lee is a 89 year old female with recurrent small-bowel obstruction readmitted to the hospital with another small-bowel obstruction. She was hospitalized from last Tuesday, 8 days ago, to last Tuesday. By Tuesday she was feeling much better and tolerating a full liquid diet but still felt like she had some abdominal bloating. She continued on a full liquid diet Tuesday and Tuesday. She was passing some gas and having some bowel movement but also having belching and nausea. She did not have any vomiting. Tuesday she started drinking only clear liquids hoping that this would pass. Over last 2 days it has not improved and because that she came to the emergency room. There she was found to have clinical in radial what Julien evidence of a small-bowel obstruction. She had a small soft stool today. She has been passing some gas. Taking in very little oral liquids and no food in the last few days. No fever. No blood in her stool. In 2020 she developed a small bowel obstruction (surgical history of tubal ligation) that did not resolve with conservative management and she underwent laparotomy and small bowel resection. She later developed an additional SBO in [facility] and was treated there with surgery after a failed gastrograffin challenge - lysis of adhesions was performed. In February 2022, she again developed a small bowel obstruction and was managed conservatively - there was a mesenteric swirl noted. November 2023 she was readmitted with small-bowel obstruction. CT scan showed mesenteric swirling again. Increased distension also noted. Previously this mesenteric swirling was noted and managed conservatively. Required NG suctioning but improved with conservative management. 10/27/2024 readmitted to the hospital with another small-bowel obstruction. She was managed conservatively again with an NG tube and was discharged to home after 5 days. Five days later on November 06 she was readmitted to the hospital with recurrent symptoms of small-bowel obstruction. Again required an NG tube. Again recovered with conservative management and was discharged after 5 days. 02/11/2025 she is admitted to the hospital again with small-bowel obstruction. Managed without an NG tube. Improved with conservative management and was discharged 5 days later on February 15 2025. She has had problems with electrolytes including chronic hyponatremia and episodic hypophosphatemia and hypo magnesemia. These are exacerbated by her poor oral intake when she is having bowel obstructive symptoms. In reviewing her records her sodium is consistently in the 125-135 range over the last few years. Review of Systems Narrative: Patient reports feeling well other than her bowel obstructive symptoms. 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) ?M51.34 - Other intervertebral disc degeneration, thoracic region (ICD-10) DDD (degenerative disc disease), lumbar (02/06/23) ?M51.369 - Other intervertebral disc degeneration, lumbar region without mention of lumbar back pain or lower extremity pain (ICD-10) Compression fracture of body of thoracic vertebra (09/07/21) ?S22.000A - Wedge compression fracture of unspecified thoracic vertebra, initial encounter for closed fracture (ICD-10) Chronic hyponatremia (11/15/23) ?E87.1 - Hypo-osmolality and hyponatremia (ICD-10) Unspecified hypothyroidism (04/08/07) ?E03.9 - Hypothyroidism, unspecified (ICD-10) Tendinitis involving right hip abductors (11/14/23) ?M76.891 - Other specified enthesopathies of right lower limb, excluding foot (ICD-10) Steatosis of liver (11/14/23) ?K76.0 - Fatty (change of) liver, not elsewhere classified (ICD-10) Hypertension (11/14/23) ?I10 - Essential (primary) hypertension (ICD-10) History of small bowel obstruction (01/23/25) ?Z87.19 - Personal history of other diseases of the digestive system (ICD-10) Anemia (11/14/23) ?D64.9 - Anemia, unspecified (ICD-10) Osteoarthritis of right hip ?M16.11 - Unilateral primary osteoarthritis, right hip (ICD-10) Tendinitis involving right hip abductors ?M76.891 - Other specified enthesopathies of right lower limb, excluding foot (ICD-10) Steatosis of liver ?K76.0 - Fatty (change of) liver, not elsewhere classified (ICD-10) CKD (chronic kidney disease) ?N18.9 - Chronic kidney disease, unspecified (ICD-10) Partial hamstring tear ?S76.319A - Strain of muscle, fascia and tendon of the posterior muscle group at thigh level, unspecified thigh, initial encounter (ICD-10) Right hip impingement syndrome ?M25.851 - Other specified joint disorders, right hip (ICD-10) Hypertension ?I10 - Essential (primary) hypertension (ICD-10) Left bundle branch block ?I44.7 - Left bundle-branch block, unspecified (ICD-10) Small bowel obstruction ?K56.609 - Unspecified intestinal obstruction, unspecified as to partial versus complete obstruction (ICD-10) Postoperative ileus ?K91.89 - Other postprocedural complications and disorders of digestive system (ICD-10) ?K56.7 - Ileus, unspecified (ICD-10) Postoperative hypoxia ?R09.02 - Hypoxemia (ICD-10) ?Z98.890 - Other specified postprocedural states (ICD-10) Anemia following surgery ?D64.9 - Anemia, unspecified (ICD-10) Strain of right hip ?S76.011A - Strain of muscle, fascia and tendon of right hip, initial encounter (ICD-10) Sigmoid diverticulosis ?K57.30 - Diverticulosis of large intestine without perforation or abscess without bleeding (ICD-10) Arthritis ?M19.90 - Unspecified osteoarthritis, unspecified site (ICD-10) GERD (gastroesophageal reflux disease) ?K21.9 - Gastro-esophageal reflux disease without esophagitis (ICD-10) Atrial fibrillation ?I48.91 - Unspecified atrial fibrillation (ICD-10) Hypothyroid ?E03.9 - Hypothyroidism, unspecified (ICD-10) Surgical History (Updated 02/19/25 @ 16:37 by Liban Weiner MD) 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) ?Z96.611 - Presence of right artificial shoulder joint (ICD-10) S/P laparotomy with lysis of adhesions ?Z98.890 - Other specified postprocedural states (ICD-10) 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) ?Z98.890 - Other specified postprocedural states (ICD-10) History of ankle surgery (12/04/92) ?Z98.890 - Other specified postprocedural states (ICD-10) 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) ?Z96.651 - Presence of right artificial knee joint (ICD-10) S/P left unicompartmental knee replacement (08/07/13) ?Z96.652 - Presence of left artificial knee joint (ICD-10) History of surgery on lower extremity (12/04/92) ?Z98.890 - Other specified postprocedural states (ICD-10) 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 She lives in [place] with her . She does not smoke. She drinks 1 glass of wine a day. Code status is full. What is your current living situation?: I presently have a place to live Problems where you live: no known problems Problems where you live details: N/A In the past 12 months, utilities in danger of being shut off: no In past 12 months, lack of transportation kept you from medical appts, meetings, work, or getting things needed for daily living: no In the past 12 mos, have been you worried that your food would run out before you had money to buy more?: never true In the past 12 mos, the food you bought just didn't last and you didn't have money to buy more?: never true Highest level of school completed/degree received: Bachelor's degree Smoking Status: Former smoker What tobacco products do you use: cigarettes Smoking quit date/years: >15 years ago Do you use any of these nicotine containing products: None Second hand tobacco smoke exposure: No How often do you have a drink containing alcohol: 4 or more times a week Alcohol type: wine Alcohol type details: occasionally a baileys How many standard drinks containing alcohol do you have on a typical day: 1 or 2 How often do you have six or more drinks on one occasion: Never AUDIT-C Alcohol total score: 4 Non-prescribed substance use: denies use Caffeine: Yes How often does anyone, including family, friends and others, physically hurt you: never How often does anyone, including family, friends and others, insult or talk down to you: never How often does anyone, including family, friends and others, threaten you with harm: never How often does anyone, including family, friends and others, scream or curse at you: never service: No Meds Home Medications and Allergies Home Medications ?Medication ?Instructions ?Recorded ?Confirmed ?Type cetirizine 10 mg tablet 10 mg PO HS 08/05/22 02/19/25 History levothyroxine 75 mcg tablet 75 mcg PO DAILY 08/05/22 02/19/25 History lisinopril 5 mg tablet 7.5 mg PO HS 08/05/22 02/19/25 History metoprolol tartrate 50 mg tablet 50 mg PO BID 08/05/22 02/19/25 History multivitamin 1 tab PO DAILY 08/05/22 02/19/25 History omega 5-oth-jkt-fish oil 60 mg-90 1 cap PO BID 04/12/23 02/19/25 History mg-500 mg capsule (Fish Oil) acetaminophen 500 mg capsule 500 - 1,000 mg PO Q6H PRN 10/28/24 02/19/25 History calcium 500 mg (as 1 tab PO DAILY 02/12/25 02/19/25 History carbonate)-vitamin D3 5 mcg (200 unit) tablet (Calcium 500 + D) cyclobenzaprine 10 mg tablet 10 mg PO TID PRN 02/12/25 02/19/25 History magnesium glycinate 100 mg (as 200 mg PO QHS 02/12/25 02/19/25 History glycinate) tablet (Mag Glycinate) naproxen sodium 220 mg tablet 220 mg PO DAILY 02/12/25 02/19/25 History vitamin A-vitamin C-vit E-min 1 tab PO DAILY 02/12/25 02/19/25 History tablet (Ocutabs tablet) Allergies Allergy/AdvReac Type Severity Reaction Status Date / Time cat dander Allergy Verified 02/11/25 22:42 perfume Allergy Verified 02/11/25 22:42 Exam Narrative: Exam Narrative: She is alert and appears in no distress. She gives her own history. Eyes normal. Oropharynx normal except for dry mucous membranes. Neck is supple without mass or adenopathy. Respirations are clear to auscultation. Cardiovascular: S1, S2, regular rate and rhythm. No murmur gallop or rub. Abdomen: Bowel sounds are very active. Bowel sounds are audible without a stethoscope. Abdomen is protuberant and mildly distended. Palpation shows minimal tenderness, no focal tenderness, no peritonitis. External genitalia normal. Extremities normal. No edema. Good peripheral pulses. Good capillary refill. Warm to touch. She moves all 4 extremities well. Const: Vital Signs, click to edit/add: Vital Signs - 24 hr 02/19/25 12:09 02/19/25 14:09 02/19/25 15:23 Temperature 98.3 F 99.2 F 97.5 F L Pulse Rate [Pulse Oximeter] 95 83 79 Respiratory Rate 18 18 16 Blood Pressure [Ri ght Arm] 178/84 H Blood Pressure [Ri ght Upper Arm] 158/81 H 167/89 H Pulse Oximetry 96 96 89 Oxygen Delivery Me thod Room Air Room Air Room Air Documenting provider has reviewed patient's vital signs: yes Hospitalist - H&P: Result Labs Labs: Short CBC 02/19/25 Range/Units 13:41 WBC 9.70 (4.50-11.00) K/uL Hgb 13.4 (12.0-16.0) gm/dL Hct 39.6 (33.0-51.0) % Plt Count 338 (140-440) K/uL BMP 02/19/25 13:41 Sodium 125 L Potassium 3.9 Chloride 86 L Carbon Dioxide 26 BUN 15 Creatinine 0.7 Glucose 96 Calcium 9.6 Liver Function 02/19/25 Range/Units 13:41 Total Bilirubin 0.9 (0.1-1.5) mg/dL Direct Bilirubin 0.4 (0.0-0.5) mg/dL AST 38 H (12-35) U/L ALT 22 (4-35) U/L Alkaline Phosphatase 68 (40-150) U/L Albumin 4.2 (3.3-5.0) g/dL Imaging CT scan - abdomen: Radiologist's impression: NDICATION: Distention. Recurrent small-bowel obstruction. TECHNIQUE: CT abdomen and pelvis acquired with 58 cc of Isovue 370 IV contrast. COMPARISON: CT abdomen and pelvis 02/11/2025. FINDINGS: Lower chest: Unremarkable. Liver: Unremarkable. Spleen: Unremarkable. Pancreas: Unremarkable. Gallbladder and bile ducts: No calcified stones or biliary ductal dilatation. Kidneys: Unremarkable. Adrenal glands: Unremarkable. GI tract: Multiple dilated fluid-filled small bowel loops measuring up to 4.1 cm persist. Decompressed small bowel in the left lower quadrant near the suspected entero enterostomy. Previous swirling of small bowel loops and mesentery has improved/resolved in the interval. Mild diffuse heterogeneous mesenteric stranding and trace pelvic free fluid. No pneumatosis or free intraperitoneal gas. Mesenteric vasculature as imaged is patent. Distal colonic diverticulosis without evidence of acute diverticulitis. Lymph nodes: No pathologic lymphadenopathy. Changes spine and pelvis. Chronic compression fractures greatest at L1 are unchanged. Vascular structures: Atherosclerotic disease. No abdominal aortic aneurysm. Pelvic Organs: Unremarkable. Bones: Degenerative changes spine and pelvis. Chronic compression fractures of the T10, T11 and L1 vertebra are unchanged. IMPRESSION: 1. Small-bowel obstruction with transition point in the left lower quadrant near the enteroenterostomy. No pneumatosis or free intraperitoneal gas. Mesenteric stranding and trace pelvic free fluid may be postoperative, however, evolving inflammation or ischemia could also produce this appearance. 2. Colonic diverticulosis without evidence of acute diverticulitis.
[2025-02-19] MEDS: LACTATED RINGERS 1000 ML 1,000 ML 500 ML IV (16:49)
[2025-02-19 19:00] VITALS: BP 130/75; PULSE 105; RESP 18; O2SAT 94
[2025-02-19] MEDS: MAGNESIUM IV 2 GM/50 ML PIGGYBACK IVPB (19:01)
--- NOTE | 2025-02-19 19:20 | PC.NURSE ---
End of shift [id number] ? Pt arrived from ED at approximately 1515. Alert, oriented, cooperative and pleasant. Up independently in room and observed to ambulate the halls. Pt reported discomfort in abdomen, but stated it was tolerable. Given aqua K pad to improve comfort per pt request. Tolerating RA and NPO diet. Denies n/v, SOB, chest pain. Pt noted to burp frequently and reports passing gas intermittently. Appears to be resting comfortably in bed at end of shift with call light within reach.
[2025-02-19] MEDS: POTASSIUM CHLORIDE 10 MEQ in 0.9 % SODIUM CHLORIDE 1000 ml 1,000 ML 75 MEQ IV (20:59)
[2025-02-19] MEDS: CETIRIZINE HCL 10 MG TABLET PO (21:00)
[2025-02-19] MEDS: METOPROLOL TARTRATE 50 MG TABLET PO (21:00)
[2025-02-19] MEDS: lisinopriL 5 MG TABLET 7.5 MG PO (21:00)
[2025-02-19 23:00] VITALS: PULSE 105; RESP 16; RESP 18
[2025-02-20 03:00] VITALS: BP 140/73; PULSE 74; RESP 18; TEMP 36.8; O2SAT 93
[2025-02-20] MEDS: LEVOTHYROXINE 75 MCG TABLET PO (06:21)
[2025-02-20 06:56] LABS: Lactate* 0.7 mmol/L (0.5-1.9)
--- NOTE | 2025-02-20 06:59 | PC.NURSE ---
Pt alert, oriented and vitally stable. Pain rated 1-2/10 throughout shift. AquaK to abdomen. Bowel sounds hyperactive in all 4 quadrants, pt states flatus. Abdomen distended, soft with generalized stomach pain. Pt states 1 small loose BM. Pt NPO with sips and chips, tolerates well. Pt independent, tolerates well. Pt in bed, appears to be resting, call light within reach.? ?
[2025-02-20 07:00] VITALS: BP 135/67; PULSE 78; RESP 18; TEMP 36.8; O2SAT 93
[2025-02-20 07:00] LABS: Anion Gap 10 mEq/L (7-15); Blood Urea Nitrogen* 16 mg/dL (7-30); Carbon Dioxide* 24 mmol/L (20-32); Chloride* 94 mmol/L (96-114); Sodium* 128 mmol/L (135-149)
[2025-02-20 07:01] LABS: Calcium* 8.7 mg/dL (8.4-10.6); Creatinine* 0.7 mg/dL (0.5-1.5); Est. Creatinine Clearance* 32.79; Estimated Glomerular Filt Rate 84 ml/min; Glucose* 66 mg/dL (60-115); Magnesium* 1.8 mg/dL (1.5-2.6)
[2025-02-20 07:12] LABS: Hematocrit 33.6 % (33.0-51.0); Hemoglobin* 11.4 gm/dL (12.0-16.0); Red Blood Count 3.74 m/uL (4.00-5.20); White Blood Count* 6.67 K/uL (4.50-11.00)
[2025-02-20 07:13] LABS: Basophils Percent Auto 0.4 % (0.0-3.0); Eosinophils Percent Auto 4.6 % (0.0-7.0); Immature Granulocytes Pct Auto 1.5 %; Lymphocytes Percent Auto 10.3 % (20-44); Mean Corpuscular HGB Conc 34 gm/dL (32-36); Mean Corpuscular Hemoglobin 31 pg (26-34); Mean Corpuscular Volume 90 fL (80-100); Monocytes Percent Auto 12.6 % (0.0-11.0); Neutrophils Percent Auto 70.6 % (42.0-72.0); Platelet Count* 297 K/uL (140-440); RDW Coefficient of Variation % 12.9 % (11.5-15.5); Slide Review Reflex No
--- NOTE | 2025-02-20 08:04 | PM.GSPN ---
Subjective Subjective Date Seen: 02/20/25 Interval history: Passing a lot of gas. Had a small BM this morning. Denies any nausea. Distension improved, still feels bloated. No appetite this morning. Exam Narrative: Exam Narrative: Gen: alert and oriented, NAD Abd: soft, significantly less distension compared to yesterday, non tender. No guarding or rebound Const: Vital Signs, click to edit/add: Vital Signs - 24 hr 02/19/25 12:09 02/19/25 14:09 02/19/25 15:23 Temperature 98.3 F 99.2 F 97.5 F L Pulse Rate [Pulse Oximeter] 95 83 79 Respiratory Rate 18 18 16 Blood Pressure [Ri ght Arm] 178/84 H Blood Pressure [Ri ght Upper Arm] 158/81 H 167/89 H Pulse Oximetry 96 96 89 Oxygen Delivery Me thod Room Air Room Air Room Air 02/19/25 19:00 02/19/25 23:00 02/19/25 23:00 Temperature Pulse Rate [Pulse Oximeter] 105 H 105 H Respiratory Rate 18 18 16 Blood Pressure [Ri ght Arm] 130/75 Blood Pressure [Ri ght Upper Arm] Pulse Oximetry 94 Oxygen Delivery Me thod Room Air 02/20/25 03:00 Temperature 98.2 F Pulse Rate [Pulse Oximeter] 74 Respiratory Rate 18 Blood Pressure [Ri ght Arm] 140/73 H Blood Pressure [Ri ght Upper Arm] Pulse Oximetry 93 Oxygen Delivery Me thod Room Air Labs/Imaging Labs Labs: No leukocytosis. Hyponatremia. Progress Note:A&P Assessment and plan (1) Partial small bowel obstruction: Status: Acute Assessment and Plan: Patient passing gas and small BM this morning. Exam significantly improved with less distension this morning compared to admission. - trial of clear liquids, recommend very slow advancement - encourage ambulation
[2025-02-20] MEDS: ACETAMINOPHEN 325 MG TABLET 650 MG PO ×2 (08:16→20:55)
[2025-02-20] MEDS: METOPROLOL TARTRATE 50 MG TABLET PO ×2 (08:16→20:46)
[2025-02-20] MEDS: 0.9 % SODIUM CHLORIDE 1000 ml 1,000 ML 75 ML IV (10:05)
[2025-02-20 11:00] VITALS: BP 130/94; PULSE 82; RESP 18; TEMP 36.7; O2SAT 96
--- NOTE | 2025-02-20 13:16 | P.IMPN_ITS ---
Assessment and Plan Assessment and plan (1) Partial small bowel obstruction: Problem comment: --recurrent, 7th occurrence since 2020, requiring 2 previous surgeries - discussed with gen surg, 02/20/2025. Given patient is now passing flatus and even a scant amount of stool, will continue with conservative efforts at this time and increase clear liquids as tolerated today and she does well consider advanced to full liquids as early as tomorrow Status: Acute (2) History of small bowel obstruction: Problem comment: - recurrent, previous abdominal surgeries Status: Acute (3) Hypothyroid: Problem comment: -continue Levothyroxine Status: Chronic (4) Hypertension: Problem comment: -continue lisinopril and metoprolol Status: Chronic Plan 1. Reviewed impression with patient 2. Discussed with Dr. Campbell 3. Continue with conservative efforts, including ambulation in the halls 4. Patient agreeable to above stated plans Total Time Spent Total Time Spent: 45 minutes Subjective Date Seen: 02/20/25 Interval history: Admission history of present illness: ?89 year old female with recurrent small-bowel obstruction readmitted to the hospital with another small-bowel obstruction. She was hospitalized from last Tuesday, 8 days ago, to last Tuesday. By Tuesday she was feeling much better and tolerating a full liquid diet but still felt like she had some abdominal bloating. She continued on a full liquid diet Tuesday and Tuesday. She was passing some gas and having some bowel movement but also having belching and nausea. She did not have any vomiting. Tuesday she started drinking only clear liquids hoping that this would pass. Over last 2 days it has not improved and because that she came to the emergency room. There she was found to have c linical in radial what Julien evidence of a small-bowel obstruction. She had a small soft stool today. She has been passing some gas. Taking in very little oral liquids and no food in the last few days. No fever. No blood in her stool. ?In 2020 she developed a small bowel obstruction (surgical history of tubal ligation) that did not resolve with conservative management and she underwent laparotomy and small bowel resection. She later developed an additional SBO in [facility] and was treated there with surgery after a failed gastrograffin challenge - lysis of adhesions was performed. In February 2022, she again developed a small bowel obstruction and was managed conservatively - there was a mesenteric swirl noted. November 2023 she was readmitted with small-bowel obstruction. CT scan showed mesenteric swirling again. Increased distension also noted. Previously this mesenteric swirling was noted and managed conservatively. Required NG suctioning but improved with conservative managemen t. 10/27/2024 readmitted to the hospital with another small-bowel obstruction. She was managed conservatively again with an NG tube and was discharged to home after 5 days. Five days later on November 06 she was readmitted to the hospital with recurrent symptoms of small-bowel obstruction. Again required an NG tube. Again recovered with conservative management and was discharged after 5 days. 02/11/2025 she is admitted to the hospital again with small-bowel obstruction. Managed without an NG tube. Improved with conservative management and was discharged 5 days later on February 15 2025. ?She has had problems with electrolytes including chronic hyponatremia and episodic hypophosphatemia and hypo magnesemia. These are exacerbated by her poor oral intake when she is having bowel obstructive symptoms. In reviewing her records her sodium is consistently in the 125-135 range over the last few years.? Hospital day 2 (02/20/2025): Partial small-bowel obstruction, recurrent small-bow el obstruction, 2 prior surgeries for small-bowel obstruction with lysis of adhesions. Feels much improved. Symptoms started 2 days prior to presentation to the hospital for assessment and management support. Denies nausea vomiting. Abdominal pain is still present but much improved from previously. Sipping on a cup of coffee and tolerating it without abdominal pain. Exam Narrative: Exam Narrative: Exam patient in her room in the halls. Appears comfortable. No acute distress. Alert and oriented x4. Lungs are clear to auscultation. Heart tones with regular rhythm. Abdomen with very active bowel sounds, soft. No rebound or guarding. Independent in transfer, station, gait. No edema in lower extremities Const: Vital Signs, click to edit/add: Vital Signs - 24 hr 02/19/25 14:09 02/19/25 15:23 02/19/25 19:00 Temperature 99.2 F 97.5 F L Pulse Rate [Pulse Oximeter] 83 79 105 H Respiratory Rate 18 16 18 Blood Pressure [Ri ght Arm] 178/84 H 130/75 Blood Pressure [Ri ght Upper Arm] 167/89 H Pulse Oximetry 96 89 94 Oxygen Delivery Me thod Room Air Room Air Room Air 02/19/25 23:00 02/19/25 23:00 02/20/25 03:00 Temperature 98.2 F Pulse Rate [Pulse Oximeter] 105 H 74 Respiratory Rate 18 16 18 Blood Pressure [Ri ght Arm] 140/73 H Blood Pressure [Ri ght Upper Arm] Pulse Oximetry 93 Oxygen Delivery Me thod Room Air 02/20/25 07:00 02/20/25 07:00 02/20/25 11:00 Temperature 98.3 F 98.1 F Pulse Rate [Pulse Oximeter] 78 78 82 Respiratory Rate 18 18 18 Blood Pressure [Ri ght Arm] 135/67 130/94 H Blood Pressure [Ri ght Upper Arm] Pulse Oximetry 93 96 Oxygen Delivery Ia thod Room Air Room Air Labs Labs: Laboratory Results - last 24 hr 02/19/25 02/19/25 02/20/25 13:41 15:44 05:49 WBC 9.70 6.67 RBC 4.47 3.74 L Hgb 13.4 11.4 L Hct 39.6 33.6 MCV 89 90 MCH 30 31 MCHC 34 34 RDW Coeff of Albertina 12.7 12.9 Plt Count 338 297 Neut % (Auto) 76.5 H 70.6 Lymph % (Auto) 11.6 L 10.3 L Blackford % (Auto) 9.2 12.6 H Eos % (Auto) 2.1 4.6 Baso % (Auto) 0.2 0.4 Neut # (Auto) 7.40 H 4.70 Lymph # (Auto) 1.10 0.70 L [place]ford # (Auto) 0.90 0.80 Eos # (Auto) 0.20 0.30 Baso # (Auto) 0.02 0.00 Abs Immat Gran (auto) 0.04 0.10 Imm/Tot Granulo (auto) 0.4 1.5 Sodium 125 L 128 L Potassium 3.9 4.0 Chloride 86 L 94 L Carbon Dioxide 26 24 Anion Gap 13 10 BUN 15 16 Creatinine 0.7 0.7 Estimated Creat Clear 32.79 32.79 Estimated GFR 84 84 Glucose 96 66 Lactate 0.7 Calcium 9.6 8.7 Phosphorus 4.1 Magnesium 1.4 L 1.8 Total Bilirubin 0.9 Direct Bilirubin 0.4 AST 38 H ALT 22 Alkaline Phosphatase 68 Total Protein 7.1 Albumin 4.2 Lab Acknowledgement Test Added
[2025-02-20 15:00] VITALS: BP 154/80; PULSE 82; RESP 18; TEMP 36.7; O2SAT 95
--- NOTE | 2025-02-20 19:27 | PC.NURSE ---
End of shift-- Very pleasant and cooperative, alert and oriented pt. VSS and pt is afebrile. SPO2 maintained >94% on RA. Pt c/o abdominal pain which she rated 2-3 out of 10 and was given Tylenol once but denied any improvement and is using heating pad as needed. Pt's abdomen is distended, but non-tender. She ate small amounts of clear liquids today. She did c/o some mild bloating following, but otherwise tolerated it well. Ambulating hallways independently frequently. She stated that she is passing flatus and passed 1 small pebble of stool today. LS CTA. Report to TAHIR Estrada.
[2025-02-20 20:38] VITALS: BP 156/89; PULSE 76; RESP 20; TEMP 36.7; O2SAT 95
[2025-02-20] MEDS: lisinopriL 5 MG TABLET 7.5 MG PO (20:44)
[2025-02-20] MEDS: CETIRIZINE HCL 10 MG TABLET PO (20:45)
[2025-02-21] VITALS (7 sets, daily range): BP systolic 132–147; BP diastolic 62–94; PULSE 66–93; RESP 16–20; TEMP 36.4–36.9; O2SAT 93–97
[2025-02-21] MEDS: MELATONIN 3 MG TABLET PO ×2 (01:00→21:39)
[2025-02-21] MEDS: LEVOTHYROXINE 75 MCG TABLET PO (06:01)
[2025-02-21 06:32] LABS: Basophils Absolute Auto 0.02 K/uL (0.00-0.30); Basophils Percent Auto 0.4 % (0.0-3.0); Eosinophils Absolute Auto 0.31 K/uL (0.00-0.50); Eosinophils Percent Auto 6.8 % (0.0-7.0); Hematocrit 31.3 % (33.0-51.0); Hemoglobin* 10.5 gm/dL (12.0-16.0); Immature Granulocytes Abs Auto 0.06 K/uL (0.00-0.30); Immature Granulocytes Pct Auto 1.3 %; Lymphocytes Percent Auto 15.6 % (20-44); Mean Corpuscular HGB Conc 34 gm/dL (32-36); Mean Corpuscular Hemoglobin 30 pg (26-34); Mean Corpuscular Volume 90 fL (80-100); Monocytes Percent Auto 13.2 % (0.0-11.0); Neutrophils Absolute Auto 2.84 K/uL (1.7-7.0); Neutrophils Percent Auto 62.7 % (42.0-72.0); Platelet Count* 284 K/uL (140-440); RDW Coefficient of Variation % 12.8 % (11.5-15.5); Red Blood Count 3.48 m/uL (4.00-5.20); White Blood Count* 4.54 K/uL (4.50-11.00)
[2025-02-21 06:42] LABS: Slide Review Reflex No
[2025-02-21 06:54] LABS: Chloride* 98 mmol/L (96-114); Potassium* 3.9 mmol/L (3.6-5.1); Sodium* 129 mmol/L (135-149)
[2025-02-21 06:57] LABS: Blood Urea Nitrogen* 10 mg/dL (7-30); Creatinine* 0.6 mg/dL (0.5-1.5); Est. Creatinine Clearance* 32.79; Estimated Glomerular Filt Rate 87 ml/min
[2025-02-21 06:58] LABS: Anion Gap 9 mEq/L (7-15); Calcium* 8.6 mg/dL (8.4-10.6); Carbon Dioxide* 22 mmol/L (20-32); Glucose* 69 mg/dL (60-115)
[2025-02-21] MEDS: SODIUM CHLORIDE 0.9 % (FLUSH) 10 ML SYRINGE 5 ML IVF ×2 (08:19→21:41)
[2025-02-21] MEDS: METOPROLOL TARTRATE 50 MG TABLET PO ×2 (08:19→21:38)
--- NOTE | 2025-02-21 11:11 | PM.GSPN ---
Subjective Subjective Date Seen: 02/21/25 Interval history: Patient overall feels better. She still has some bloating when she eats liquids, but denies any abdominal pain. She continues to pass gas. She had a small bowel movement today, with no significant straining. She is going to try some full liquids for lunch. Continues to ambulate the hallway. Exam Narrative: Exam Narrative: General: Alert and oriented, no acute distress Abdomen: Soft, moderate distention, active bowel sounds. Nontender to palpation. Const: Vital Signs, click to edit/add: Vital Signs - 24 hr 02/20/25 15:00 02/20/25 15:00 02/20/25 20:38 Temperature 98.0 F 98.1 F Pulse Rate [Pulse Oximeter] 82 82 76 Respiratory Rate 18 18 20 Blood Pressure [Ri ght Arm] 154/80 H 156/89 H Pulse Oximetry 95 95 Oxygen Delivery Me thod Room Air Room Air 02/21/25 01:00 02/21/25 04:50 02/21/25 07:00 Temperature 97.8 F 98.4 F 98.2 F Pulse Rate [Pulse Oximeter] 66 69 93 Respiratory Rate 20 18 16 Blood Pressure [Ri ght Arm] 141/69 H 132/74 140/75 H Pulse Oximetry 93 94 93 Oxygen Delivery Me thod Room Air Room Air Room Air 02/21/25 07:00 Temperature Pulse Rate [Pulse Oximeter] 80 Respiratory Rate 16 Blood Pressure [Ri ght Arm] Pulse Oximetry Oxygen Delivery Me thod Labs/Imaging Labs Labs: No leukocytosis. Hyponatremia with sodium 129. Imaging Imaging: No new imaging Progress Note:A&P Assessment and plan (1) Partial small bowel obstruction: Status: Acute Assessment and Plan: Patient is tolerating clear liquids and has return of bowel function. Frequent small bowel obstructions are most likely secondary to adhesions, although I wonder if there is a component of bowel dysmotility contributing to the patient's problem given her persistent symptoms. Would recommend trying oral erythromycin to see if that improves any of her symptoms. - full liquids, advanced as tolerated -consider trial of oral erythromycin as a prokinetic agent - encourage ambulation
--- NOTE | 2025-02-21 14:54 | PC.NURSE ---
A&Ox4, VSS, denies pain. Bowels active x4. Patient has been frequently walking lewis independently and tolerating well. Full liquid diet tolerated. Patient had 2 small, soft bowel movements.
--- NOTE | 2025-02-21 15:29 | P.IMPN_ITS ---
Assessment and Plan Assessment and plan (1) Partial small bowel obstruction: Problem comment: --recurrent, 7th occurrence since 2020, requiring 2 previous surgeries - discussed with gen surg, 02/20/2025. Given patient is now passing flatus and even a scant amount of stool, will continue with conservative efforts at this time and increase clear liquids as tolerated today and she does well consider advanced to full liquids as early as tomorrow Status: Acute (2) History of small bowel obstruction: Problem comment: - recurrent, previous abdominal surgeries Status: Acute (3) Hypothyroid: Problem comment: -continue Levothyroxine Status: Chronic (4) Hypertension: Problem comment: -continue lisinopril and metoprolol Status: Chronic Plan 1. Reviewed impression with patient, , daughter. Long discussion about possible concurrent conditions including the possibility of enzyme deficiency and motility disorder. For now they will monitor and consider initiating elimination of dairy products and seeing how she tolerates this. Will work with her primary care physician about other modifications to consider. 2. Discuss with general surgeon 3. Advanced diet 4. Increased activities 5. Consider discharge as early as tomorrow if condition remains stable or continues to improve Total Time Spent Total Time Spent: 40 minutes Subjective Date Seen: 02/21/25 Interval history: Admission history of present illness: ?89 year old female with recurrent small-bowel obstruction readmitted to the hospital with another small-bowel obstruction. She was hospitalized from last Tuesday, 8 days ago, to last Tuesday. By Tuesday she was feeling much better and tolerating a full liquid diet but still felt like she had some abdominal bloating. She continued on a full liquid diet Tuesday and Tuesday. She was passing some gas and having some bowel movement but also having belching and nausea. She did not have any vomiting. Tuesday she started drinking only clear liquids hoping that this would pass. Over last 2 days it has not improved and because that she came to the emergency room. There she was found to have clinical in radial what Julien evidence of a small-bowel obstruction. She had a small soft stool today. She has been passing some gas. Taking in very little oral liquids and no food in the last few days. No fever. No blood in her stool. ?In 2020 she developed a small bowel obstruction (surgical history of tubal ligation) that did not resolve with conservative management and she underwent laparotomy and small bowel resection. She later developed an additional SBO in [facility] and was treated there with surgery after a failed gastrograffin challenge - lysis of adhesions was performed. In February 2022, she again developed a small bowel obstruction and was managed conservatively - there was a mesenteric swirl noted. November 2023 she was readmitted with small-bowel obstruction. CT scan showed mesenteric swirling again. Increased distension also noted. Previously this mesenteric swirling was noted and managed conservatively. Required NG suctioning but improved with conservative management. 10/27/2024 readmitted to the hospital with another small-bowel obstruction. She was managed conservatively again with an NG tube and was discharged to home after 5 days. Five days later on November 06 she was readmitted to the hospital with recurrent symptoms of small-bowel obstruction. Again required an NG tube. Again recovered with conservative management and was discharged after 5 days. 02/11/2025 she is admitted to the hospital again with small-bowel obstruction. Managed without an NG tube. Improved with conservative management and was discharged 5 days later on February 15 2025. ?She has had problems with electrolytes including chronic hyponatremia and episodic hypophosphatemia and hypo magnesemia. These are exacerbated by her poor oral intake when she is having bowel obstructive symptoms. In reviewing her records her sodium is consistently in the 125-135 range over the last few years.? Hospital day 2 (02/20/2025): Partial small-bowel obstruction, recurrent small- bowel obstruction, 2 prior surgeries for small-bowel obstruction with lysis of adhesions. Feels much improved. Symptoms started 2 days prior to presentation to the hospital for assessment and management support. Denies nausea vomiting. Abdominal pain is still present but much improved from previously. Sipping on a cup of coffee and tolerating it without abdominal pain. Hospital day 3 (02/21/2025). Tolerating clear liquids. Will be advancing to full liquids. Increase activities. Exam Narrative: Exam Narrative: I examine her in her hospital room and in the hallways that she is ambulating. No acute distress. Alert and oriented x4. Lungs clear to auscultation. No CVA tenderness. Heart tones with regular rhythm. Abdomen with active bowel sounds, soft. Extremities without edema. Independent with transfer, station, gait. Const: Vital Signs, click to edit/add: Vital Signs - 24 hr 02/20/25 20:38 02/21/25 01:00 02/21/25 04:50 Temperature 98.1 F 97.8 F 98.4 F Pulse Rate [Pulse Oximeter] 76 66 69 Respiratory Rate 20 20 18 Blood Pressure [Ri ght Arm] 156/89 H 141/69 H 132/74 Pulse Oximetry 95 93 94 Oxygen Delivery Me thod Room Air Room Air Room Air 02/21/25 07:00 02/21/25 07:00 02/21/25 11:00 Temperature 98.2 F Pulse Rate [Pulse Oximeter] 93 80 68 Respiratory Rate 16 16 16 Blood Pressure [Ri ght Arm] 140/75 H 147/88 H Pulse Oximetry 93 97 Oxygen Delivery Me thod Room Air Room Air Labs Labs: Laboratory Results - last 24 hr 02/21/25 05:57 WBC 4.54 RBC 3.48 L Hgb 10.5 L Hct 31.3 L MCV 90 MCH 30 MCHC 34 RDW Coeff of Albertina 12.8 Plt Count 284 Neut % (Auto) 62.7 Lymph % (Auto) 15.6 L Jefferson % (Auto) 13.2 H Eos % (Auto) 6.8 Baso % (Auto) 0.4 Neut # (Auto) 2.84 Lymph # (Auto) 0.70 L Jefferson # (Auto) 0.60 Eos # (Auto) 0.31 Baso # (Auto) 0.02 Abs Immat Gran (auto) 0.06 Imm/Tot Granulo (auto) 1.3 Sodium 129 L Potassium 3.9 Chloride 98 Carbon Dioxide 22 Anion Gap 9 BUN 10 Creatinine 0.6 Estimated Creat Clear 32.79 Estimated GFR 87 Glucose 69 Calcium 8.6
[2025-02-21] MEDS: CETIRIZINE HCL 10 MG TABLET PO (21:38)
[2025-02-21] MEDS: lisinopriL 5 MG TABLET 7.5 MG PO (21:39)
[2025-02-22 03:00] VITALS: BP 133/61; PULSE 72; RESP 18; TEMP 36.7; O2SAT 94
--- NOTE | 2025-02-22 04:59 | PC.NURSE ---
Shift note ([id number]): Patient pleasant, alert and oriented. Ambulates independently in room. Bowel sounds active. Pt reports having multiple loose stools this afternoon and evening. Last BM was very small and formed.?Given PRN melatonin at HS. Rated pain in abdomen 0-2/10 with occasional spasms rated 4-5/10 . Advanced to full liquid diet.
[2025-02-22] MEDS: LEVOTHYROXINE 75 MCG TABLET PO (06:38)
[2025-02-22 07:01] LABS: Basophils Absolute Auto 0.02 K/uL (0.00-0.30); Basophils Percent Auto 0.4 % (0.0-3.0); Eosinophils Absolute Auto 0.26 K/uL (0.00-0.50); Eosinophils Percent Auto 5.5 % (0.0-7.0); Hematocrit 31.9 % (33.0-51.0); Hemoglobin* 10.8 gm/dL (12.0-16.0); Immature Granulocytes Abs Auto 0.02 K/uL (0.00-0.30); Immature Granulocytes Pct Auto 0.4 %; Lymphocytes Percent Auto 19.7 % (20-44); Mean Corpuscular HGB Conc 34 gm/dL (32-36); Mean Corpuscular Hemoglobin 30 pg (26-34); Mean Corpuscular Volume 90 fL (80-100); Monocytes Percent Auto 12.5 % (0.0-11.0); Neutrophils Absolute Auto 2.89 K/uL (1.7-7.0); Neutrophils Percent Auto 61.5 % (42.0-72.0); Platelet Count* 301 K/uL (140-440); RDW Coefficient of Variation % 12.8 % (11.5-15.5); Red Blood Count 3.56 m/uL (4.00-5.20); White Blood Count* 4.71 K/uL (4.50-11.00)
[2025-02-22 07:16] LABS: Chloride* 96 mmol/L (96-114); Sodium* 129 mmol/L (135-149)
[2025-02-22 07:19] LABS: Anion Gap 6 mEq/L (7-15); Blood Urea Nitrogen* 6 mg/dL (7-30); Carbon Dioxide* 27 mmol/L (20-32); Creatinine* 0.6 mg/dL (0.5-1.5); Est. Creatinine Clearance* 32.79; Estimated Glomerular Filt Rate 87 ml/min
[2025-02-22 07:20] LABS: Calcium* 9.2 mg/dL (8.4-10.6); Glucose* 92 mg/dL (60-115)
[2025-02-22 07:29] LABS: Slide Review Reflex No
[2025-02-22 07:39] VITALS: BP 170/90; PULSE 80; RESP 16; TEMP 36.6; O2SAT 96
[2025-02-22] MEDS: METOPROLOL TARTRATE 50 MG TABLET PO (08:35)
[2025-02-22] MEDS: SODIUM CHLORIDE 0.9 % (FLUSH) 10 ML SYRINGE 5 ML IVF (08:35)
[2025-02-22] MEDS: ACETAMINOPHEN 325 MG TABLET 650 MG PO (09:13)
[2025-02-22 09:15] VITALS: BP 137/65
[2025-02-22 10:50] VITALS: BP 142/75; PULSE 67; RESP 16; TEMP 37.2; O2SAT 96
--- NOTE | 2025-02-22 14:03 | PC.NURSE ---
Discharged: VSS, denies pain. Bowel movement today. Tolerating full liquid diet. Ambulating in the lewis frequently. Patient belongings and discharge forms signed. Education reviewed, patient has no further questions or concerns at this time. Discharged home with , accompanied off unit with PLATINU[employer] via wheelchair.
--- NOTE | 2025-02-22 17:12 | PM.DS1 ---
DS: Providers Provider Date Seen: 02/22/25 Date of admission: 02/19/25 15:44 Primary care physician: Akila Cerda MD Admitting Clinician: Jovany De La Vega MD Consults: 02/19/25 15:44 Consult to Physician [CONS] Urgent Comment: Consulting Provider: Nay Campbell Has provider been notified: Yes Attending Physician on discharge: Jovany De La Vega MD Date of Discharge: 02/22/25 DS: Diagnosis Discharge Diagnosis (1) Partial small bowel obstruction: Status: Acute Problem details: --recurrent, 7th occurrence since 2020, requiring 2 previous surgeries - discussed with gen surg, 02/20/2025. Given patient is now passing flatus and even a scant amount of stool, will continue with conservative efforts at this time and increase clear liquids as tolerated today and she does well consider advanced to full liquids as early as tomorrow (2) History of small bowel obstruction: Status: Acute Problem details: - recurrent, previous abdominal surgeries (3) Hypothyroid: Status: Chronic Problem details: -continue Levothyroxine (4) Hypertension: Status: Chronic Problem details: -continue lisinopril and metoprolol DS: Summary Hospital Course Hospital Course: Admission history of present illness: ?89 year old female with recurrent small-bowel obstruction readmitted to the hospital with another small-bowel obstruction. She was hospitalized from last Tuesday, 8 days ago, to last Tuesday. By Tuesday she was feeling much better and tolerating a full liquid diet but still felt like she had some abdominal bloating. She continued on a full liquid diet Tuesday and Tuesday. She was passing some gas and having some bowel movement but also having belching and nausea. She did not have any vomiting. Tuesday she started drinking only clear liquids hoping that this would pass. Over last 2 days it has not improved and because that she came to the emergency room. There she was found to have clinical in radial what Julien evidence of a small-bowel obstruction. She had a small soft stool today. She has been passing some gas. Taking in very little oral liquids and no food in the last few days. No fever. No blood in her stool. ?In 2020 she developed a small bowel obstruction (surgical history of tubal ligation) that did not resolve with conservative management and she underwent laparotomy and small bowel resection. She later developed an additional SBO in [facility] and was treated there with surgery after a failed gastrograffin challenge - lysis of adhesions was performed. In February 2022, she again developed a small bowel obstruction and was managed conservatively - there was a mesenteric swirl noted. November 2023 she was readmitted with small-bowel obstruction. CT scan showed mesenteric swirling again. Increased distension also noted. Previously this mesenteric swirling was noted and managed conservatively. Required NG suctioning but improved with conservative management. 10/27/2024 readmitted to the hospital with another small-bowel obstruction. She was managed conservatively again with an NG tube and was discharged to home after 5 days. Five days later on November 06 she was readmitted to the hospital with recurrent symptoms of small-bowel obstruction. Again required an NG tube. Again recovered with conservative management and was discharged after 5 days. 02/11/2025 she is admitted to the hospital again with small-bowel obstruction. Managed without an NG tube. Improved with conservative management and was discharged 5 days later on February 15 2025. ?She has had problems with electrolytes including chronic hyponatremia and episodic hypophosphatemia and hypo magnesemia. These are exacerbated by her poor oral intake when she is having bowel obstructive symptoms. In reviewing her records her sodium is consistently in the 125-135 range over the last few years.? Patient treated conservatively and slowly improved during the course of hospital stay as outlined in the diagnosis section above. Status at Discharge Functional status at discharge: independent ambulation Overall status at discharge: patient is back to baseline Time Spent with Patient Time attestation: Total time spent providing and/or coordinating discharge services: Time spent: Greater than 30 minutes Exam Narrative: Exam Narrative: I examine her in her hospital room and in the hallways that she is ambulating. No acute distress. Alert and oriented x4. Lungs clear to auscultation. No CVA tenderness. Heart tones with regular rhythm. Abdomen with active bowel sounds, soft. Extremities without edema. Independent with transfer, station, gait. Const: Vital Signs, click to edit/add: Vital Signs - 24 hr 02/21/25 19:00 02/21/25 23:00 02/22/25 03:00 Temperature 97.5 F L 98.4 F 98.1 F Pulse Rate [Pulse Oximeter] 81 75 72 Respiratory Rate 18 17 18 Blood Pressure [Ri ght Arm] 139/79 137/62 133/61 Pulse Oximetry 96 94 94 Oxygen Delivery Me thod Room Air Room Air Room Air 02/22/25 07:39 02/22/25 07:39 02/22/25 09:15 Temperature 97.9 F Pulse Rate [Pulse Oximeter] 80 80 Respiratory Rate 16 16 Blood Pressure [Ri ght Arm] 170/90 H 137/65 Pulse Oximetry 96 Oxygen Delivery Me thod Room Air 02/22/25 10:50 Temperature 98.9 F Pulse Rate [Pulse Oximeter] 67 Respiratory Rate 16 Blood Pressure [Ri ght Arm] 142/75 H Pulse Oximetry 96 Oxygen Delivery Me thod Room Air DS: Data Data Completed and Pending Completed studies during hospitalization: Procedures Drainage of Stomach with Drainage Device, Via Natural or Artificial Opening (11/06/24) Insertion of Infusion Device into Stomach, Via Natural or Artificial Opening (02/12/25) Labs on day of discharge: Labs from last 24 hours 02/22/25 06:20 WBC 4.71 RBC 3.56 L Hgb 10.8 L Hct 31.9 L MCV 90 MCH 30 MCHC 34 RDW Coeff of Albertina 12.8 Plt Count 301 Neut % (Auto) 61.5 Lymph % (Auto) 19.7 L Hanson % (Auto) 12.5 H Eos % (Auto) 5.5 Baso % (Auto) 0.4 Neut # (Auto) 2.89 Lymph # (Auto) 0.90 Hanson # (Auto) 0.60 Eos # (Auto) 0.26 Baso # (Auto) 0.02 Abs Immat Gran (auto) 0.02 Imm/Tot Granulo (auto) 0.4 Sodium 129 L Potassium 4.0 Chloride 96 Carbon Dioxide 27 Anion Gap 6 L BUN 6 L Creatinine 0.6 Estimated Creat Clear 32.79 Estimated GFR 87 Glucose [address] scan of abdomen and pelvis: Radiologist's impression: 1. Small-bowel obstruction with transition point in the left lower quadrant near the enteroenterostomy. No pneumatosis or free intraperitoneal gas. Mesenteric stranding and trace pelvic free fluid may be postoperative, however, evolving inflammation or ischemia could also produce this appearance. 2. Colonic diverticulosis without evidence of acute diverticulitis. Discharge Plan Discharge Disposition: Home, Self-Care Date of Admission: 02/19/25 15:44 Attending Provider on Discharge: Jovany De La Vega Consulting Providers: Nay Campbell Primary Care Provider: Akila Cerda Condition: Stable Anticipated Discharge Date/Time: 02/22/25 13:30 Discharge Medications: New melatonin 3 mg Tablet 3 mg PO HS PRN30 Days Qty: 30 0RF Continued omega 4-mys-okh-fish oil [Fish Oil] 60-90-500 mg capsule 1 cap PO BID levothyroxine 75 mcg tablet 75 mcg PO DAILY metoprolol tartrate 50 mg tablet 50 mg PO BID lisinopril 5 mg tablet 7.5 mg PO HS cetirizine 10 mg tablet 10 mg PO HS multivitamin Tablet 1 tab PO DAILY acetaminophen 500 mg capsule 500 - 1,000 mg PO Q6H MDD 3000mg PRN calcium carbonate-vitamin D3 [Calcium 500 + D] 500 mg-5 mcg (200 unit) tablet 1 tab PO DAILY naproxen sodium 220 mg tablet 220 mg PO DAILY Ocutabs Tablet 1 tab PO DAILY Mag Glycinate 100 mg tablet 200 mg PO QHS cyclobenzaprine 10 mg tablet 10 mg PO TID PRN Phospha 250 Neutral 250 mg Tablet 1 tab PO QID Qty: 60 0RF Rx Instructions: may stop this supplement once you are eating a normal diet Discharge Orders: Discharge Order (Routine); Ordered 02/22/25 Ordered By: Jovany De La Vega Patient Education: Melatonin (By mouth), Lactose-Controlled Diet (GEN), Lactose Intolerance (GEN) Additional Instructions: 1. Follow-up with your primary acute care physician in the next 5-10 days 2. Your condition is chronic, and recurrent. You remain at a high risk of recurrent small bowel obstruction. Continue to consider measures to lower your risk of recurrence of small bowel obstruction. For instance, consider trial of lower lactose intake, or consider minimizing consumption of beans and legumes. Also, consider adding a pro-motility medicine such as erythromycin if diet modifications not sufficient - you will need to work with your physicians to consider such an addition. 3. Return to the clinic or emergency department sooner if your condition warrants. Activity Level: No Restrictions and Activity as Tolerated Discharge Diet: Full Liquid Diet Detail: advance to soft, low fiber diet over next 5-10 days as tolerated Follow Up Appointments: Akila Cerda MD [Primary Care Provider] - 02/28/25 12:45 pm ([facility] for follow-up.) Forms: [employer] Info Instructions
== END 2025-02-22 14:05 | disposition home or self-care (01) | DRG 389 ==
LOC: ED 14:45 → MEDSURG 15:08
PROVIDERS: Admitting Provider Family Medicine; Emergency Provider Student in an Organized Health Care Education/Training Program; PCP Family Medicine; Visit Provider Internal Medicine
DX: K56.600 Partial intestinal obstruction, unspecified as to cause (principal); E87.1 Hypo-osmolality and hyponatremia; E03.9 Hypothyroidism, unspecified; Z87.19 Personal history of other diseases of the digestive system; K21.9 Gastro-esophageal reflux disease without esophagitis; Z96.651 Presence of right artificial knee joint; Z96.652 Presence of left artificial knee joint; Z96.612 Presence of left artificial shoulder joint; I44.7 Left bundle-branch block, unspecified; I12.9 Hypertensive chronic kidney disease with stage 1 through stage 4 chronic kidney disease, or unspecified chronic kidney disease; N18.9 Chronic kidney disease, unspecified; I48.91 Unspecified atrial fibrillation
CPT/HCPCS: 36415; 74177; 80048; 80076; 83605; 83735; 84100; 85025; 99284; 99285; A9270; J2270; J2405; J3475; J3480; J7030; J7120; Q9967

== ENCOUNTER 2025-03-14 08:10 | Inpatient (IN) | payer MEDICARE, BC, SELFPAY ==
--- OUTSIDE RECORDS SUMMARY | 2025-03-14 08:12 | XMS_ITS | Clinical Summary ---
Author Organization [employer] [facility] [employer] Address [address] [place] [id number] Care Team Providers Care Spot Sprayer Name Role Phone Kathleen Gorman MD Unavailable Unavailable Janay Garcia Magda Unavailable [phone] Akila Cerda MD Primary Care Prov [...] bedtime. 0 08/18/20 21 Active vit C-vit P-dxuqja-wzfxdyjg -omega (OCUVITE) 250-5-1 mg Take 1 Capsule by mouth once daily. 0 07/26/20 23 Active naproxen (ALEVE) 220 mg tablet Take 2 Tablets (440 mg) by mouth once daily. 0 07/26/20 23 Active levothyroxine (SYNTHROID) 75 mcg tabletIndications :Acquired hypothyroidism Take 1 Tablet (75 mcg) by mouth before breakfast. HOLD until patient calls 90 Tablet 3 12/13/19 25 Active metoprolol tartrate [...] MAGNESIUM GLYCINATE ORAL Take by mouth. Active lisinopriL 5 mg tabletIndications :HTN (hypertension) Take 1.5 Tablets (7.5 mg) by mouth once daily. HOLD until patient calls 145 Tablet 3 03/12/20 25 Active lisinopriL (PRINIVIL; ZESTRIL) 5 mg tabletIndications :HTN (hypertension) Take 1.5 Tablets (7.5 mg) by mouth once daily. HOLD until patient calls 145 Tablet 3 12/13/19 25 025 Discontin ued(Reord er (E-cancel not sent)) Phosphorous 250 mg tablet TAKE 1 TABLET BY MOUTH FOUR TIMES DAILY. MAY STOP TAKING THIS ONCE YOU ARE EATING A NORMAL DIET 02/16/20 25 025 Discontin ued(*Ebony ent states no longer taking) Active Problems Problem Noted Date Diagnosed Date [...] 2022: T12-L1 epidural steroid injection by Dr. Thomas: did not help ym. Sinus tachycardia 09/21/2021 Compression fracture of body of thoracic vertebr a 09/07/2021 Overview (09/07/2021): Found on [facility] at [facility] 07/21/21 T10, T11, L1 on CT for [...] Encounters Date Type Department Care Team Description 03/12/2025 Telephone [facility] [address] [place] [address] Akila Cerda MD PRESCRIPTION INCREASE 02/28/2025 12:45 PM CDT Office Visit [facility] [address] [facility] [address] Akila Cerda MD Hospital F/U 02/28/2025 Travel 02/19/2025 Orders Only [facility] Scanner 1 scan: (1-Ord) [place], CT ABDOMEN PEVLIS W CON , 02/19/2025 02/14/2025 Orders Only [facility] Scanner 1 scan: (1-Ord) [facility], XR ABD 1V - GASTRO CHALLENGE, 02/14/2025 02/13/2025 Orders Only [facility] Scanner 1 scan: (1-Ord) [facility], XR ABDOMEN 1V, 02/13/2025 02/11/2025 Orders Only [facility] Scanner 1 scan: (1-Ord) [place], XR ABDOMEN MIN 2V, 02/11/2025 02/11/2025 Orders Only [facility] Scanner 1 scan: (1-Ord) [facility], CT ABDOMEN PELVIS W CON, 02/11/2025 01/24/2025 9:00 AM [employer] Office Visit [facility] [address] [place] [address] Martínez Rojas MD Consult (Bowel obstructions - 2 surgeries & 3 hospitalizations recently, low fiber diet - how long, fluid intake) 01/23/2025 8:15 AM [employer] Office Visit [facility] [address] [facility] [address] Akila Cerda MD Blood Pressure (Increased Lisinopril) 01/23/2025 Travel 01/15/2025 9:00 AM [employer] Procedure Only [facility] [address] [facility] [address] Marya Delaney L Ac Acupuncture 01/15/2025 Travel 01/07/2025 2:00 PM [employer] Procedure Only [facility] [address] [place] [address] Marya Delaney L Ac Acupuncture 01/07/2025 Travel 12/25/2024 1:00 PM [employer] Procedure Only [facility] [address] [place] [address] Marya Delaney L Ac Acupuncture (Initial) 12/25/2024 Travel from Last 3 Months Immunizations Immunization [...] on file Legal Sex Female 6:18 AM [employer] Gender Identity Not on file Sexual Orientation [...] Sign Reading Time Taken Comments Blood Pressure 138/67 02/28/2025 12:51 PM CDT Pulse 82 02/28/2025 12:51 PM CDT Temperature 36.6 C (97.9 F) 11/12/2022 10:16 AM [employer] Respiratory Rate 18 08/18/2021 8:28 AM CDT Oxygen Saturation 96% 02/28/2025 12: 51 PM CDT Inhaled Oxygen Concentration - - Weight 54.3 kg (119 lb 12.8 oz) 025 12:51 PM CDT Height 160 cm (5' 3) 12/13/2024 9:06 AM [employer] Body Mass Index 21.22 12/13/2024 9:06 AM [employer] Plan of Treatment Health Maintenance Due Date [...] Procedure Name Priority Date/Time Associated Diagnosis Comments SCAN-CT INTERPRETATION 12:00 AM CDT SCAN-RADIOLOGY REPORT 02/14/2025 12:00 AM CDT SCAN-RADIOLOGY REPORT 02/13/2025 12:00 AM CDT SCAN-RADIOLOGY REPORT 02/11/2025 12:00 AM CDT SCAN-CT INTERPRETATION 12:00 AM CDT XR DXA BONE DENSITY 2 SITES AXIAL Routine 08/18/2021 9:54 AM CDT Osteoporosis, unspecified osteoporosis type, unspecified pathological fracture presence from Last 3 Months or Most Recently Relevant to Health Maintenance Results * SCAN-CT INTERPRETATION (02/19/2025 12:00 AM CDT) Only the most recent of2 resultswithin the time period is included. Anatomical Region Laterality Modality Other us Scanner OTHER Final Result * SCAN-RADIOLOGY REPORT (02/14/2025 12:00 AM CDT) Only the most recent of3 resultswithin the time period is included. Anatomical Region Laterality Modality Other us Scanner OTHER Final Result * (ABNORMAL) XR DXA BONE DENSITY 2 [...] Patients: Results are automatically released to your [facility] account once available, in compliance with federal regulations. This means that you may see your results before your provider has had a chance to review them. Please allow 2-3 business days for your provider to comment on the results. XR DXA Bone Mineral Density (BMD) EXAM LOCATION: [address] [address] PATIENT NAME: Areli Lee DATE OF : 1935 EXAM DATE: 08/18/2021 REQUESTING PROVIDER: Akila Cerda MD GENDER AT : female HEIGHT: 5' 3.75 (08/18/2021) WEIGHT: 126 lb (08/18/2021) MENOPAUSAL STATUS: Postmenopausal RACE/ETHNICITY: White RISK FACTORS: Family History of Osteoporosis and Smoking (prior) CURRENT MEDICATION FOR BONE LOSS: Alendronate (Fosamax) INDICATION: Follow-up of existing osteoporosis COMPARISON DATE(S): 2017 DXA scans are compared to prior studies for a patient only when the two (or more) studies were performed on the same scanner. It is not possible to compare data generated on one scanner to data from another because there are not standards in DXA equipment. This applies even if the two scanners are made by the same food and drug research scientist. PROCEDURE: Dual-energy x-ray absorptiometry performed with routine [...] Relevant to Health Maintenance Insurance [employer] [phone] MEDICARE PART B HB ONLY [facility] MEDICARE PROVIDER BASED Advance Directives Documents on File Type Date Recorded Patient Plate Maker Zinc Expl anation Healthcare Directive 09/10/2021 2:29 PM H EALTHCARE DIRECTIVE, , 11/19/99 Care Teams Spot Sprayer Relationship Specialty Start Date End Date Akila Cerda MD [address] [place] [address] PCP - General Family Practice 04/07/18 Kathleen Gorman MD Surgery - Orthopedics 05/22/12 Janay Garcia AuD Audiology 09/22/07
[2025-03-14 08:15] VITALS: BP 128/69; PULSE 94; RESP 18; TEMP 36.6; O2SAT 96; BMI 20.4
--- NOTE | 2025-03-14 08:22 | ED.ABDPAIN ---
HPI - Abdominal Pain General Time Seen by Provider: 08: Date Seen: 03/14/25 Chief Complaint: Abdominal Pain Stated Complaint: Abdominal pain, nausea Time Seen by Provider: 03/14/25 08:22 Source: patient and RN notes reviewed Mode of arrival: ambulatory Limitations: no limitations History of Present Illness HPI narrative: Areli is a very pleasant 89-year-old female with a history of frequent bowel obstruction per her history, hypothyroidism and hypertension who comes to the Emergency accompanied by her for evaluation of abdominal pain retching and increasing abdominal distension. You notes the onset of some mild abdominal discomfort on Tuesday evening March 11. On the and she limited herself to clear liquids and tried to push those and felt that she is fairly well hydrated. She noticed that she had worsening symptoms last evening and even had some retching although she had no production because there is nothing in her stomach. She notes that at rest her pain is a 4 to 5/10. When she is up and walking it seems to be worse. She notes that her abdomen feels like she is 6 months . She did have a very small stool this morning. She had taken senna yesterday. Notes that she is only able to pass very tiny amounts of gas. She denies fevers chills. Notes that she was hospitalized in January for this same thing and that she spent 5 days here. Otherwise, denies any recent respiratory illnesses, unusual weight loss, fevers or chills. Related Data Home Medications ?Medication ?Instructions ?Recorded ?Confirmed cetirizine 10 mg tablet 10 mg PO HS 08/05/22 03/14/25 levothyroxine 75 mcg tablet 75 mcg PO DAILY 08/05/22 03/14/25 lisinopril 5 mg tablet 7.5 mg PO HS 08/05/22 03/14/25 metoprolol tartrate 50 mg tablet 50 mg PO BID 08/05/22 03/14/25 multivitamin 1 tab PO DAILY 08/05/22 03/14/25 omega 0-rdm-lhh-fish oil 60 mg-90 1 cap PO BID 04/12/23 03/14/25 mg-500 mg capsule (Fish Oil) acetaminophen 500 mg capsule 500 - 1,000 mg PO Q6H PRN 10/28/24 03/14/25 calcium 500 mg (as 1 tab PO DAILY 02/12/25 03/14/25 carbonate)-vitamin D3 5 mcg (200 unit) tablet (Calcium 500 + D) cyclobenzaprine 10 mg tablet 10 mg PO TID PRN 02/12/25 03/14/25 magnesium glycinate 100 mg (as 200 mg PO QHS 02/12/25 03/14/25 glycinate) tablet (Mag Glycinate) naproxen sodium 220 mg tablet 220 mg PO DAILY 02/12/25 03/14/25 vitamin A-vitamin C-vit E-min 1 tab PO DAILY 02/12/25 03/14/25 tablet (Ocutabs tablet) Previous Rx's ?Medication ?Instructions ?Recorded melatonin 3 mg tablet 3 mg PO HS PRN 30 days #30 tabs 02/22/25 Allergies Allergy/AdvReac Type Severity Reaction Status Date / Time cat dander Allergy Verified 03/14/25 08:20 perfume Allergy Verified 03/14/25 08:20 Review of Systems Status of ROS Reports: 10 or more systems reviewed and unremarkable except as noted in History and below Narrative Quit smoking 45 years ago. 1-1-1/2 glasses of wine 3 to 4 times a week. present loving and supportive. Const Denies: fever, chills or fatigue ENMT Denies: nasal congestion Cardio Denies: chest pain, swelling of feet/ankles, lightheadedness or shortness of breath with exertion Resp Denies: shortness of breath or cough GI Reports: abdominal pain, nausea and vomiting; Denies: diarrhea or blood in stool Denies: painful urination Musculo Denies: back pain Endo Denies: fatigue PFSH PFS Medical History History of small bowel obstruction ?Z87.19 - Personal history of other diseases of the digestive system (ICD-10) Sinus tachycardia (09/21/21) ?R00.0 - Tachycardia, unspecified (ICD-10) Sensorineural hearing loss, 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) ?H90.3 - Sensorineural hearing loss, bilateral (ICD-10) 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) ?M19.012 - Primary osteoarthritis, left shoulder (ICD-10) Dermatophytosis of nail (10/16/07) ?B35.1 - Tinea unguium (ICD-10) DDD (degenerative disc disease), 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) ?M51.34 - Other intervertebral disc degeneration, thoracic region (ICD-10) DDD (degenerative disc disease), lumbar (02/06/23) ?M51.369 - Other intervertebral disc degeneration, lumbar region without mention of lumbar back pain or lower extremity pain (ICD-10) Compression fracture of body of thoracic vertebra (09/07/21) ?S22.000A - Wedge compression fracture of unspecified thoracic vertebra, initial encounter for closed fracture (ICD-10) Chronic hyponatremia (11/15/23) ?E87.1 - Hypo-osmolality and hyponatremia (ICD-10) Unspecified hypothyroidism (04/08/07) ?E03.9 - Hypothyroidism, unspecified (ICD-10) Tendinitis involving right hip abductors (11/14/23) ?M76.891 - Other specified enthesopathies of right lower limb, excluding foot (ICD-10) Steatosis of liver (11/14/23) ?K76.0 - Fatty (change of) liver, not elsewhere classified (ICD-10) Hypertension (11/14/23) ?I10 - Essential (primary) hypertension (ICD-10) History of small bowel obstruction (01/23/25) ?Z87.19 - Personal history of other diseases of the digestive system (ICD-10) Anemia (11/14/23) ?D64.9 - Anemia, unspecified (ICD-10) Osteoarthritis of right hip ?M16.11 - Unilateral primary osteoarthritis, right hip (ICD-10) Tendinitis involving right hip abductors ?M76.891 - Other specified enthesopathies of right lower limb, excluding foot (ICD-10) Steatosis of liver ?K76.0 - Fatty (change of) liver, not elsewhere classified (ICD-10) CKD (chronic kidney disease) ?N18.9 - Chronic kidney disease, unspecified (ICD-10) Partial hamstring tear ?S76.319A - Strain of muscle, fascia and tendon of the posterior muscle group at thigh level, unspecified thigh, initial encounter (ICD-10) Right hip impingement syndrome ?M25.851 - Other specified joint disorders, right hip (ICD-10) Hypertension ?I10 - Essential (primary) hypertension (ICD-10) Left bundle branch block ?I44.7 - Left bundle-branch block, unspecified (ICD-10) Small bowel obstruction ?K56.609 - Unspecified intestinal obstruction, unspecified as to partial versus complete obstruction (ICD-10) Postoperative ileus ?K91.89 - Other postprocedural complications and disorders of digestive system (ICD-10) ?K56.7 - Ileus, unspecified (ICD-10) Postoperative hypoxia ?R09.02 - Hypoxemia (ICD-10) ?Z98.890 - Other specified postprocedural states (ICD-10) Anemia following surgery ?D64.9 - Anemia, unspecified (ICD-10) Strain of right hip ?S76.011A - Strain of muscle, fascia and tendon of right hip, initial encounter (ICD-10) Sigmoid diverticulosis ?K57.30 - Diverticulosis of large intestine without perforation or abscess without bleeding (ICD-10) Arthritis ?M19.90 - Unspecified osteoarthritis, unspecified site (ICD-10) GERD (gastroesophageal reflux disease) ?K21.9 - Gastro-esophageal reflux disease without esophagitis (ICD-10) Atrial fibrillation ?I48.91 - Unspecified atrial fibrillation (ICD-10) Hypothyroid ?E03.9 - Hypothyroidism, unspecified (ICD-10) Surgical History 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) ?Z96.611 - Presence of right artificial shoulder joint (ICD-10) S/P laparotomy with lysis of adhesions ?Z98.890 - Other specified postprocedural states (ICD-10) 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) ?Z98.890 - Other specified postprocedural states (ICD-10) History of ankle surgery (12/04/92) ?Z98.890 - Other specified postprocedural states (ICD-10) 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 She lives in [place] with her . She does not smoke. She drinks 1 glass of wine a day. Code status is full. What is your current living situation?: I presently have a place to live Problems where you live: no known problems Problems where you live details: N/A In the past 12 months, utilities in danger of being shut off: no In past 12 months, lack of transportation kept you from medical appts, meetings, work, or getting things needed for daily living: no In the past 12 mos, have been you worried that your food would run out before you had money to buy more?: never true In the past 12 mos, the food you bought just didn't last and you didn't have money to buy more?: never true Highest level of school completed/degree received: Bachelor's degree Smoking Status: Former smoker What tobacco products do you use: cigarettes Smoking quit date/years: >15 years ago Do you use any of these nicotine containing products: None Second hand tobacco smoke exposure: No How often do you have a drink containing alcohol: 4 or more times a week Alcohol type: wine Alcohol type details: occasionally eb saldana How many standard drinks containing alcohol do you have on a typical day: 1 or 2 How often do you have six or more drinks on one occasion: Never AUDIT-C Alcohol total score: 4 Non-prescribed substance use: denies use Caffeine: Yes How often does anyone, including family, friends and others, physically hurt you: never How often does anyone, including family, friends and others, insult or talk down to you: never How often does anyone, including family, friends and others, threaten you with harm: never How often does anyone, including family, friends and others, scream or curse at you: never service: No Exam Narrative: Exam Narrative: Alert and oriented. Very pleasant woman in no acute distress. Mentation normal. EOM is full face symmetrical. Oral cavity with moist mucous membranes but no excessive saliva. Lips are dry. Neck is supple. Heart with a regular rate and rhythm. Lungs are clear bilaterally. Abdomen shows decreased to absent bowel sounds. Markedly distended. Abdominal palpation does not yield any tenderness. No peritoneal signs. Lower extremities without edema. Moving all extremities. Const: Vital Signs, click to edit/add: Vital Signs - 24 hr 03/14/25 08:15 Temperature 98 F Pulse Rate [Right Pulse Oximeter] 94 Respiratory Rate 18 Blood Pressure [Ri ght Upper Arm] 128/69 Pulse Oximetry 96 Oxygen Delivery Me thod Room Air Documenting provider has reviewed patient's vital signs: yes Course Course ED Course: Differential diagnosis includes but is not limited to bowel obstruction, partial bowel obstruction, constipation, organomegaly, ascites. At this time will order CBC, comprehensive panel, lactate, CRP, IV placement, fluids, Zofran and Toradol. Will hold off on CT of the abdomen and await laboratory values. Vital Signs Vital signs: Initial Vital Signs Temperature 98 F 03/14/25 08:15 Temperature Source Temporal Artery Scan 03/14/25 08:15 Pulse Rate 94 03/14/25 08:15 Pulse Rhythm Regular 03/14/25 08:15 Pulse Strength 3+ Normal 03/14/25 08:15 Respiratory Rate 18 03/14/25 08:15 Blood Pressure 128/69 03/14/25 08:15 Blood Pressure Mean 88 03/14/25 08:15 Blood Pressure Position Sitting 03/14/25 08:15 Pulse Oximetry 96 03/14/25 08:15 Oxygen Delivery Method Room Air 03/14/25 08:15 Vital Signs Temperature 98 F 03/14/25 08:15 Pulse Rate 94 03/14/25 08:15 Respiratory Rate 18 03/14/25 08:15 Blood Pressure 128/69 03/14/25 08:15 Pulse Oximetry 96 03/14/25 08:15 Oxygen Delivery Method Room Air 03/14/25 08:15 Temperature 98 F 03/14/25 08:15 Pulse Rate 94 03/14/25 08:15 Respiratory Rate 18 03/14/25 08:15 Blood Pressure 128/69 03/14/25 08:15 Pulse Oximetry 96 03/14/25 08:15 Oxygen Delivery Method Room Air 03/14/25 08:15 Medications Administered Medications: Discontinued Medications Generic Name Dose Route Start Last Admin Trade Name Abril PRN Reason Stop Dose Admin Sodium Chloride 1,000 mls @ 1,000 mls/hr 03/14/25 08:37 03/14/25 09:00 0.9 % Sodium Chloride 1000 Ml IV 03/14/25 09:36 1,000 mls/hr .Q1H [place] Administration Ketorolac Tromethamine 15 mg 03/14/25 08:37 03/14/25 08:59 Ketorolac 15 Mg/Ml Inj IVP 03/14/25 08:38 15 mg ONCE ONE Administration Ondansetron HCl 4 mg 03/14/25 08:37 03/14/25 08:59 Ondansetron 2 Mg/Ml Inj IVP 03/14/25 08:38 4 mg ONCE ONE Administration MDM - Abdominal Pain MDM Narrative Medical decision making narrative: 1. Small-bowel obstruction-at this time patient has a normal lactate and white count. Other labs currently pending. Will forego the CT of the abdomen as this does appear to be recurrent problem for the patient. Have discussed with her hospitalization with bowel rest and she is agreeable. 2. Hyponatremia- 125 likely from pushing fluids over the past few days. 1 L of normal saline is given. 3. History of hypertension-normal blood pressure at this time. 4. Disposition-admit under the care of hospitalist team leader/research psychologist Dr. Carolyn Canchola. Medical Records Attestation: I reviewed the patient's medical records. Lab Data Attestation: I reviewed the patient's lab results. Labs: Lab Results 03/14/25 Range/Units 08:55 WBC 8.83 (4.50-11.00) K/uL RBC 4.20 (4.00-5.20) m/uL Hgb 12.6 (12.0-16.0) gm/dL Hct 36.9 (33.0-51.0) % MCV 88 (80-100) fL MCH 30 (26-34) pg MCHC 34 (32-36) gm/dL RDW Coeff of Albertina 13.4 (11.5-15.5) % Plt Count 343 (140-440) K/uL Neut % (Auto) 89.1 H (42.0-72.0) % Lymph % (Auto) 4.3 L (20-44) % [place] % (Auto) 6.1 (0.0-11.0) % Eos % (Auto) 0.1 (0.0-7.0) % Baso % (Auto) 0.2 (0.0-3.0) % Neut # (Auto) 7.90 H (1.7-7.0) K/uL Lymph # (Auto) 0.40 L (0.90-2.90) K/uL [place] # (Auto) 0.50 (0.00-0.90) K/UL Eos # (Auto) 0.01 (0.00-0.50) K/uL Baso # (Auto) 0.02 (0.00-0.30) K/uL Abs Immat Gran (auto) 0.02 (0.00-0.30) K/uL Imm/Tot Granulo (auto) 0.2 % Sodium 125 L (135-149) mmol/L Potassium 4.6 (3.6-5.1) mmol/L Chloride 89 L (96-114) mmol/L Carbon Dioxide 25 (20-32) mmol/L Anion Gap 11 (7-15) mEq/L BUN 16 (7-30) mg/dL Creatinine 0.6 (0.5-1.5) mg/dL Estimated Creat Clear 32.64 Estimated GFR 87 ml/min Glucose 134 H (60-115) mg/dL Lactate 0.9 (0.5-1.9) mmol/L Calcium 10.0 (8.4-10.6) mg/dL Total Bilirubin 0.9 (0.1-1.5) mg/dL AST 33 (12-35) U/L ALT 17 (4-35) U/L Alkaline Phosphatase 73 (40-150) U/L C-Reactive Protein 3.4 H (0.5-1.0) mg/dL Total Protein 7.4 (6.0-8.3) g/dL Albumin 4.2 (3.3-5.0) g/dL Discharge Plan Discharge Clinical Impression: H/O small bowel obstruction, Small bowel obstruction Patient Disposition: Admitted As Observation Condition: Improved
--- OUTSIDE RECORDS SUMMARY | 2025-03-14 08:43 | XMS_ITS | Clinical Summary ---
Author Organization [facility] Address [address] [place] [address] Care Team Providers Care Railroad Car Checker Name Role Phone Kathleen Gorman MD Unavailable Unavailable Janay Garcia Magda Unavailable [phone] Akila Cerda MD Primary Care Prov [...] bedtime. 0 08/18/20 21 Active vit C-vit Q-izavkf-dzafxiza -omega (OCUVITE) 250-5-1 mg Take 1 Capsule [...] 09/07/2021 Overview (09/07/2021): Found on [facility] at [facility] 07/21/21 T10, T11, L1 on CT [...] Type Department Care Team Description 03/12/2025 Telephone [facility] [address] [place] [address] Akila Cerda MD PRESCRIPTION INCREASE 02/28/2025 12:45 PM CDT Office Visit [facility] [address] [facility] [address] Akila Cerda MD Hospital F/U 02/28/2025 Travel 02/19/2025 Orders Only [facility] Scanner 1 scan: (1-Ord) [place], CT ABDOMEN PEVLIS W CON , 02/19/2025 02/14/2025 Orders Only [facility] Scanner 1 scan: (1-Ord) [facility], XR ABD 1V - GASTRO CHALLENGE, 02/14/2025 02/13/2025 Orders Only [facility] Scanner 1 scan: (1-Ord) [facility], XR ABDOMEN 1V, 02/13/2025 02/11/2025 Orders Only [facility] Scanner 1 scan: (1-Ord) [place], XR ABDOMEN MIN 2V, 02/11/2025 02/11/2025 Orders Only [facility] Scanner 1 scan: (1-Ord) [facility], CT ABDOMEN PELVIS W CON, 02/11/2025 01/24/2025 9:00 AM PHYSICAL MEDICINE PHYSICIAN Office Visit [facility] [address] [place] [address] Martínez Rojas MD Consult (Bowel obstructions - 2 surgeries & 3 hospitalizations recently, low fiber diet - how long, fluid intake) 01/23/2025 8:15 AM PHYSICAL MEDICINE PHYSICIAN Office Visit [facility] [address] [facility] [address] Akila Cerda MD Blood Pressure (Increased Lisinopril) 01/23/2025 Travel 01/15/2025 9:00 AM PHYSICAL MEDICINE PHYSICIAN Procedure Only [facility] [address] [facility] [address] Marya Delaney L Ac Acupuncture 01/15/2025 Travel 01/07/2025 2:00 PM PHYSICAL MEDICINE PHYSICIAN Procedure Only [facility] [address] [place] [address] Marya Delaney L Ac Acupuncture 01/07/2025 Travel 12/25/2024 1:00 PM PHYSICAL MEDICINE PHYSICIAN Procedure Only [facility] [address] [place] [address] Marya Delaney L Ac Acupuncture (Initial) 12/25/2024 [...] on file Legal Sex Female 6:18 AM PHYSICAL MEDICINE PHYSICIAN Gender Identity Not on file Sexual Orientation [...] 36.6 C (97.9 F) 11/12/2022 10:16 AM PHYSICAL MEDICINE PHYSICIAN Respiratory Rate 18 08/18/2021 8:28 AM CDT Oxygen Saturation 96% 02/28/2025 12: 51 PM CDT Inhaled Oxygen Concentration - - Weight 54.3 kg (119 lb 12.8 oz) 025 12:51 PM CDT Height 160 cm (5' 3) 12/13/2024 9:06 AM PHYSICAL MEDICINE PHYSICIAN Body Mass Index 21.22 12/13/2024 9:06 AM PHYSICAL MEDICINE PHYSICIAN Plan of Treatment Health Maintenance Due Date [...] Patients: Results are automatically released to your [facility] account once available, in compliance with federal regulations. This means that you may see your results before your provider has had a chance to review them. Please allow 2-3 business days for your provider to comment on the results. XR DXA Bone Mineral Density (BMD) EXAM LOCATION: [address] [address] PATIENT NAME: Areli Lee DATE OF : [...] two scanners are made by the same bridge saw operator. 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
[2025-03-14] MEDS: KETOROLAC 15 MG/ML inj IVP (08:59)
[2025-03-14] MEDS: ONDANSETRON 2 MG/ML inj 4 MG IVP (08:59)
[2025-03-14] MEDS: 0.9 % SODIUM CHLORIDE 1000 ml 1,000 ML IV (09:00)
[2025-03-14 09:05] LABS: Lactate* 0.9 mmol/L (0.5-1.9)
[2025-03-14 09:09] LABS: Basophils Absolute Auto 0.02 K/uL (0.00-0.30); Basophils Percent Auto 0.2 % (0.0-3.0); Eosinophils Absolute Auto 0.01 K/uL (0.00-0.50); Eosinophils Percent Auto 0.1 % (0.0-7.0); Hematocrit* 36.9 % (33.0-51.0); Hemoglobin* 12.6 gm/dL (12.0-16.0); Immature Granulocytes Abs Auto 0.02 K/uL (0.00-0.30); Immature Granulocytes Pct Auto 0.2 %; Lymphocytes Percent Auto 4.3 % (20-44); Mean Corpuscular HGB Conc 34 gm/dL (32-36); Mean Corpuscular Hemoglobin 30 pg (26-34); Mean Corpuscular Volume 88 fL (80-100); Monocytes Percent Auto 6.1 % (0.0-11.0); Neutrophils Percent Auto 89.1 % (42.0-72.0); Platelet Count* 343 K/uL (140-440); RDW Coefficient of Variation % 13.4 % (11.5-15.5); White Blood Count* 8.83 K/uL (4.50-11.00)
[2025-03-14 09:11] LABS: Slide Review Reflex No
[2025-03-14 09:28] LABS: Albumin* 4.2 g/dL (3.3-5.0); Chloride* 89 mmol/L (96-114); Potassium* 4.6 mmol/L (3.6-5.1); Sodium* 125 mmol/L (135-149)
[2025-03-14 09:30] LABS: Blood Urea Nitrogen* 16 mg/dL (7-30); Creatinine* 0.6 mg/dL (0.5-1.5); Est. Creatinine Clearance* 32.64; Estimated Glomerular Filt Rate 87 ml/min
[2025-03-14 09:31] LABS: Alanine Aminotransferase* 17 U/L (4-35); Alkaline Phosphatase* 73 U/L (40-150); Anion Gap 11 mEq/L (7-15); Aspartate Amino Transferase* 33 U/L (12-35); Bilirubin Total* 0.9 mg/dL (0.1-1.5); Carbon Dioxide* 25 mmol/L (20-32); Total Protein* 7.4 g/dL (6.0-8.3)
[2025-03-14 09:32] LABS: Glucose* 134 mg/dL (60-115)
[2025-03-14 09:34] LABS: C Reactive Protein* 3.4 mg/dL (0.5-1.0)
[2025-03-14 10:38] VITALS: BP 151/82; PULSE 75; RESP 12; O2SAT 97
[2025-03-14 10:49] VITALS: BP 130/71; PULSE 74; RESP 12; RESP 14; TEMP 36.9; BMI 20.7
--- NOTE | 2025-03-14 11:00 | PM.IMHP1 ---
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 no new imaging today but will after discussion with gen surg and see how she does -IVF, pain management, gen surg consult Status: Acute (2) H/O small bowel obstruction: Problem comment: first 2020 - (only abd surg hx was a Tubal ligation) - JOANA at [facility] 2021 - [facility]. JOANA [phone] 3 occurences; conservative tx 2024 - 3rd admisson as of 03/14/25; all conservative tx Status: Acute (3) Hyponatremia: Problem comment: -baseline NA 130's -125, will run NS without fluid restriction. if not correcting will add sodium tabs and protein when tolerating PO Status: Acute (4) Hypothyroid: Problem comment: -continue Levothyroxine when taking PO Status: Chronic (5) Hypertension: Problem comment: -continue lisinopril and metoprolol when taking PO -hx of SVT/Afib and is sensitive when metoprolol is held Status: Chronic Hospitalist- H&P: HPI History of Present Illness Date Seen: 03/14/25 Chief complaint: Abdominal pain, nausea Narrative: ADMISSION HISTORY AND PHYSICAL - HOSPITALIST Chief Complaint: reoccurring SBO symptoms HPI: Areli is an 89-year-old woman who lives independently here in [place]. She is retired nurse. We know Areli well to our service. This will be her 3rd admission in 2024 for small-bowel obstruction. The 2 previous admissions were successfully resolved with conservative treatment. This did include NG tube placement with Gastrografin challenge. Her 1st small-bowel obstruction occurred in 2020 with the only abdominal surgical history of being a tubal ligation. This resulted in surgery, lysis of adhesions. She again had surgery in 2021 for recurrent SBO while she was vacationing in [facility]. Since the [facility] surgery she has had at least 6 episodes requiring medical attention of small-bowel obstruction, 3 this year. This current episode started about 4 days ago. She attempted walking, converting to clear liquid diet and observation. While she still is passing a very small amount of stool and flatus her distension was worse in the last 12 hours with associated increase in nausea/dry heaving. Her belly is feeling tense and her pain has increased. She presented to our ER this morning. Of note her sodium is 125. This is not an uncommon presentation for her with an acute SBO. Her baseline sodium runs 131-133. ER COURSE: Fluids, IV pain medication, labs. CODE STATUS: FULL CODE PCP: Iván Gray EMERGENCY CONTACT PLAN: Luis Lee Rel To Pat Cell I've updated the PFSH, medications and allergies in the Expanse tabs. INVESTIGATIONS: LABS/MICRO/ECG/IMAGING No imaging in the ED - My intent was to see how she was doing this morning before radiation exposure. Afebrile Blood pressure 128/69, 151/82 Pulse 75 Respiratory rate 12 Pulse oximetry 97 Room air 52.2 kilos CBC unremarkable. Sodium 125. Renal function normal. Glucose 134. Lactate normal. Magnesium pending CRP 3.4 REVIEW OF SYSTEMS: 12-point ROS completed with patient and negative unless otherwise stated in HPI or below. PHYSICAL EXAM: CONSTITUTIONAL: Conversive, good historian. A/O. Knows setting and context. GENERAL: Well-developed and above ideal body weight, in no respiratory distress. VITAL SIGNS: see record. HEENT: Sclerae are anicteric. No petechiae. CARDIAC: rhythm is regular. There is no S3 or rub. No harsh murmurs. Extremities show trace edema with symmetrical pulses. ABDOMEN: distended;+BS - infact quite gurgly. mild global tenderness. PULM: good air entry with no wheeze. NEURO: Speech is fluent. A brief neurologic exam is negative. SKIN: No rashes, petechiae, concerning changes PSYCHIATRIC: Euthymic. ADMIT TO MEDSURG: FLOOR CARE DVT: Lovenox GI: PO intake Time spent: Today I spent 75 minutes seeing the patient, discussing the patient with ER staff, reviewing Expanse and EPIC notes/diagnostics, discussing the care plan with our care time that includes social work, PT/OT, pharmacy, RT, nursing home and documenting my impressions and plan in the medical record. MEDICAL NECESSITY FOR HOSPITALIZATION Anticipated midnights in the hospital: 2+ Admitting diagnosis: SBO, hyonatremia Risk of morbidity and mortality: moderate Acuity is characterized as high and reflected in: adv age, reoccurence frequency, electrolyte abnl. This patient will require hospital services as outlined in the assessment and plan in order to stabilize and be safely discharged to a lower level of care. Because of the risk and acuity as described above, this patient cannot be managed at a lower level of care. LENGTH OF STAY: 2 IP ? 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) ?M19.012 - Primary osteoarthritis, left shoulder (ICD-10) Dermatophytosis of nail (10/16/07) ?B35.1 - Tinea unguium (ICD-10) DDD (degenerative disc disease), 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) ?M51.34 - Other intervertebral disc degeneration, thoracic region (ICD-10) DDD (degenerative disc disease), lumbar (02/06/23) ?M51.369 - Other intervertebral disc degeneration, lumbar region without mention of lumbar back pain or lower extremity pain (ICD-10) Compression fracture of body of thoracic vertebra (09/07/21) ?S22.000A - Wedge compression fracture of unspecified thoracic vertebra, initial encounter for closed fracture (ICD-10) Chronic hyponatremia (11/15/23) ?E87.1 - Hypo-osmolality and hyponatremia (ICD-10) Unspecified hypothyroidism (04/08/07) ?E03.9 - Hypothyroidism, unspecified (ICD-10) Tendinitis involving right hip abductors (11/14/23) ?M76.891 - Other specified enthesopathies of right lower limb, excluding foot (ICD-10) Steatosis of liver (11/14/23) ?K76.0 - Fatty (change of) liver, not elsewhere classified (ICD-10) Hypertension (11/14/23) ?I10 - Essential (primary) hypertension (ICD-10) History of small bowel obstruction (01/23/25) ?Z87.19 - Personal history of other diseases of the digestive system (ICD-10) Anemia (11/14/23) ?D64.9 - Anemia, unspecified (ICD-10) Osteoarthritis of right hip ?M16.11 - Unilateral primary osteoarthritis, right hip (ICD-10) Tendinitis involving right hip abductors ?M76.891 - Other specified enthesopathies of right lower limb, excluding foot (ICD-10) Steatosis of liver ?K76.0 - Fatty (change of) liver, not elsewhere classified (ICD-10) CKD (chronic kidney disease) ?N18.9 - Chronic kidney disease, unspecified (ICD-10) Partial hamstring tear ?S76.319A - Strain of muscle, fascia and tendon of the posterior muscle group at thigh level, unspecified thigh, initial encounter (ICD-10) Right hip impingement syndrome ?M25.851 - Other specified joint disorders, right hip (ICD-10) Hypertension ?I10 - Essential (primary) hypertension (ICD-10) Left bundle branch block ?I44.7 - Left bundle-branch block, unspecified (ICD-10) Small bowel obstruction ?K56.609 - Unspecified intestinal obstruction, unspecified as to partial versus complete obstruction (ICD-10) Postoperative ileus ?K91.89 - Other postprocedural complications and disorders of digestive system (ICD-10) ?K56.7 - Ileus, unspecified (ICD-10) Postoperative hypoxia ?R09.02 - Hypoxemia (ICD-10) ?Z98.890 - Other specified postprocedural states (ICD-10) Anemia following surgery ?D64.9 - Anemia, unspecified (ICD-10) Strain of right hip ?S76.011A - Strain of muscle, fascia and tendon of right hip, initial encounter (ICD-10) Sigmoid diverticulosis ?K57.30 - Diverticulosis of large intestine without perforation or abscess without bleeding (ICD-10) Arthritis ?M19.90 - Unspecified osteoarthritis, unspecified site (ICD-10) GERD (gastroesophageal reflux disease) ?K21.9 - Gastro-esophageal reflux disease without esophagitis (ICD-10) Atrial fibrillation ?I48.91 - Unspecified atrial fibrillation (ICD-10) Hypothyroid ?E03.9 - Hypothyroidism, unspecified (ICD-10) Surgical History (Updated 03/14/25 @ 11:09 by Carolyn Canchola MD) S/P laparotomy with lysis of adhesions ?Z98.890 - Other specified postprocedural states (ICD-10) 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) ?Z98.890 - Other specified postprocedural states (ICD-10) History of ankle surgery (12/04/92) ?Z98.890 - Other specified postprocedural states (ICD-10) 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 She lives in [place] with her . She does not smoke. She drinks 1 glass of wine a day. Code status is full. What is your current living situation?: I presently have a place to live Problems where you live: no known problems Problems where you live details: N/A In the past 12 months, utilities in danger of being shut off: no In past 12 months, lack of transportation kept you from medical appts, meetings, work, or getting things needed for daily living: no In the past 12 mos, have been you worried that your food would run out before you had money to buy more?: never true In the past 12 mos, the food you bought just didn't last and you didn't have money to buy more?: never true Highest level of school completed/degree received: Bachelor's degree Smoking Status: Former smoker What tobacco products do you use: cigarettes Smoking quit date/years: >15 years ago Do you use any of these nicotine containing products: None Second hand tobacco smoke exposure: No How often do you have a drink containing alcohol: 4 or more times a week Alcohol type: wine Alcohol type details: occasionally eb saldana How many standard drinks containing alcohol do you have on a typical day: 1 or 2 How often do you have six or more drinks on one occasion: Never AUDIT-C Alcohol total score: 4 Non-prescribed substance use: denies use Caffeine: Yes How often does anyone, including family, friends and others, physically hurt you: never How often does anyone, including family, friends and others, insult or talk down to you: never How often does anyone, including family, friends and others, threaten you with harm: never How often does anyone, including family, friends and others, scream or curse at you: never service: No Meds Home Medications and Allergies Home Medications ?Medication ?Instructions ?Recorded ?Confirmed ?Type cetirizine 10 mg tablet 10 mg PO HS 08/05/22 03/14/25 History levothyroxine 75 mcg tablet 75 mcg PO DAILY 08/05/22 03/14/25 History lisinopril 5 mg tablet 7.5 mg PO HS 08/05/22 03/14/25 History metoprolol tartrate 50 mg tablet 50 mg PO BID 08/05/22 03/14/25 History multivitamin 1 tab PO DAILY 08/05/22 03/14/25 History omega 6-rkm-qfq-fish oil 60 mg-90 1 cap PO BID 04/12/23 03/14/25 History mg-500 mg capsule (Fish Oil) acetaminophen 500 mg capsule 500 - 1,000 mg PO Q6H PRN 10/28/24 03/14/25 History calcium 500 mg (as 1 tab PO DAILY 02/12/25 03/14/25 History carbonate)-vitamin D3 5 mcg (200 unit) tablet (Calcium 500 + D) cyclobenzaprine 10 mg tablet 10 mg PO TID PRN 02/12/25 03/14/25 History magnesium glycinate 100 mg (as 200 mg PO QHS 02/12/25 03/14/25 History glycinate) tablet (Mag Glycinate) naproxen sodium 220 mg tablet 220 mg PO DAILY 02/12/25 03/14/25 History vitamin A-vitamin C-vit E-min 1 tab PO DAILY 02/12/25 03/14/25 History tablet (Ocutabs tablet) Allergies Allergy/AdvReac Type Severity Reaction Status Date / Time cat dander Allergy Verified 03/14/25 08:20 perfume Allergy Verified 03/14/25 08:20 Exam Const: Vital Signs, click to edit/add: Vital Signs - 24 hr 03/14/25 08:15 03/14/25 10:38 Temperature 98 F Pulse Rate 75 Pulse Rate [Right Pulse Oximeter] 94 Respiratory Rate 18 12 Blood Pressure 151/82 H Blood Pressure [Ri ght Upper Arm] 128/69 Pulse Oximetry 96 97 Oxygen Delivery Me thod Room Air Hospitalist - H&P: Result Labs Labs: Short CBC 03/14/25 Range/Units 08:55 WBC 8.83 (4.50-11.00) K/uL Hgb 12.6 (12.0-16.0) gm/dL Hct 36.9 (33.0-51.0) % Plt Count 343 (140-440) K/uL BMP 03/14/25 08:55 Sodium 125 L Potassium 4.6 Chloride 89 L Carbon Dioxide 25 BUN 16 Creatinine 0.6 Glucose 134 H Calcium 10.0 Liver Function 03/14/25 Range/Units 08:55 Total Bilirubin 0.9 (0.1-1.5) mg/dL AST 33 (12-35) U/L ALT 17 (4-35) U/L Alkaline Phosphatase 73 (40-150) U/L Albumin 4.2 (3.3-5.0) g/dL
[2025-03-14 11:26] LABS: Magnesium* 1.6 mg/dL (1.5-2.6)
[2025-03-14] MEDS: 5 % DEX/0.9 SOD CHL+KCL 20 mEq 1,000 ML 125 ML IV ×2 (12:04→19:53)
--- NOTE | 2025-03-14 13:27 | P.GSCN_ITS ---
History of Present Illness Consult details Date Seen: 03/14/25 Consult date: 03/14/25 Narrative: Patient presents for abdominal pain and distension. This is her 3rd hospitalization for a small-bowel obstruction in the last month. She states on Tuesday she started to have some abdominal pain and distension. She tried to stay with clear liquids during the week but then last night started to vomit multiple times. This brought her into the emergency department. She has continued to pass a small amount of stool and have gas. She does feel better now that she is on the floor. Patient has had a total of 8 admissions in her lifetime for small-bowel obstruction. Her 1st episode was in 2020, she underwent an exploratory laparotomy with small-bowel resection and lysis of adhesions. She had another episode in 2021 in [facility], which required a surgery for lysis of adhesions. 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) ?M19.012 - Primary osteoarthritis, left shoulder (ICD-10) Dermatophytosis of nail (10/16/07) ?B35.1 - Tinea unguium (ICD-10) DDD (degenerative disc disease), 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) ?M51.34 - Other intervertebral disc degeneration, thoracic region (ICD-10) DDD (degenerative disc disease), lumbar (02/06/23) ?M51.369 - Other intervertebral disc degeneration, lumbar region without mention of lumbar back pain or lower extremity pain (ICD-10) Compression fracture of body of thoracic vertebra (09/07/21) ?S22.000A - Wedge compression fracture of unspecified thoracic vertebra, initial encounter for closed fracture (ICD-10) Chronic hyponatremia (11/15/23) ?E87.1 - Hypo-osmolality and hyponatremia (ICD-10) Unspecified hypothyroidism (04/08/07) ?E03.9 - Hypothyroidism, unspecified (ICD-10) Tendinitis involving right hip abductors (11/14/23) ?M76.891 - Other specified enthesopathies of right lower limb, excluding foot (ICD-10) Steatosis of liver (11/14/23) ?K76.0 - Fatty (change of) liver, not elsewhere classified (ICD-10) Hypertension (11/14/23) ?I10 - Essential (primary) hypertension (ICD-10) History of small bowel obstruction (01/23/25) ?Z87.19 - Personal history of other diseases of the digestive system (ICD-10) Anemia (11/14/23) ?D64.9 - Anemia, unspecified (ICD-10) Osteoarthritis of right hip ?M16.11 - Unilateral primary osteoarthritis, right hip (ICD-10) Tendinitis involving right hip abductors ?M76.891 - Other specified enthesopathies of right lower limb, excluding foot (ICD-10) Steatosis of liver ?K76.0 - Fatty (change of) liver, not elsewhere classified (ICD-10) CKD (chronic kidney disease) ?N18.9 - Chronic kidney disease, unspecified (ICD-10) Partial hamstring tear ?S76.319A - Strain of muscle, fascia and tendon of the posterior muscle group at thigh level, unspecified thigh, initial encounter (ICD-10) Right hip impingement syndrome ?M25.851 - Other specified joint disorders, right hip (ICD-10) Hypertension ?I10 - Essential (primary) hypertension (ICD-10) Left bundle branch block ?I44.7 - Left bundle-branch block, unspecified (ICD-10) Small bowel obstruction ?K56.609 - Unspecified intestinal obstruction, unspecified as to partial versus complete obstruction (ICD-10) Postoperative ileus ?K91.89 - Other postprocedural complications and disorders of digestive system (ICD-10) ?K56.7 - Ileus, unspecified (ICD-10) Postoperative hypoxia ?R09.02 - Hypoxemia (ICD-10) ?Z98.890 - Other specified postprocedural states (ICD-10) Anemia following surgery ?D64.9 - Anemia, unspecified (ICD-10) Strain of right hip ?S76.011A - Strain of muscle, fascia and tendon of right hip, initial encounter (ICD-10) Sigmoid diverticulosis ?K57.30 - Diverticulosis of large intestine without perforation or abscess without bleeding (ICD-10) Arthritis ?M19.90 - Unspecified osteoarthritis, unspecified site (ICD-10) GERD (gastroesophageal reflux disease) ?K21.9 - Gastro-esophageal reflux disease without esophagitis (ICD-10) Atrial fibrillation ?I48.91 - Unspecified atrial fibrillation (ICD-10) Hypothyroid ?E03.9 - Hypothyroidism, unspecified (ICD-10) Surgical History (Updated 03/14/25 @ 11:09 by Carolyn Canchola MD) S/P laparotomy with lysis of adhesions ?Z98.890 - Other specified postprocedural states (ICD-10) 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) ?Z98.890 - Other specified postprocedural states (ICD-10) History of ankle surgery (12/04/92) ?Z98.890 - Other specified postprocedural states (ICD-10) 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 She lives in [place] with her . She does not smoke. She drinks 1 glass of wine a day. Code status is full. What is your current living situation?: I presently have a place to live Problems where you live: no known problems Problems where you live details: N/A In the past 12 months, utilities in danger of being shut off: no In past 12 months, lack of transportation kept you from medical appts, meetings, work, or getting things needed for daily living: no In the past 12 mos, have been you worried that your food would run out before you had money to buy more?: never true In the past 12 mos, the food you bought just didn't last and you didn't have money to buy more?: never true Highest level of school completed/degree received: Master's degree Smoking Status: Former smoker What tobacco products do you use: cigarettes Smoking quit date/years: >15 years ago Do you use any of these nicotine containing products: None Second hand tobacco smoke exposure: No How often do you have a drink containing alcohol: 2-3 times a week Alcohol type: wine Alcohol type details: occasionally eb saldana How many standard drinks containing alcohol do you have on a typical day: 1 or 2 How often do you have six or more drinks on one occasion: Never AUDIT-C Alcohol total score: 3 Non-prescribed substance use: denies use Caffeine: No How often does anyone, including family, friends and others, physically hurt you : never How often does anyone, including family, friends and others, insult or talk down to you: never How often does anyone, including family, friends and others, threaten you with harm: never How often does anyone, including family, friends and others, scream or curse at you: never service: No Meds Home Medications and Allergies Home Medications ?Medication ?Instructions ?Recorded ?Confirmed ?Type cetirizine 10 mg tablet 10 mg PO HS 08/05/22 03/14/25 History levothyroxine 75 mcg tablet 75 mcg PO DAILY 08/05/22 03/14/25 History lisinopril 5 mg tablet 7.5 mg PO HS 08/05/22 03/14/25 History metoprolol tartrate 50 mg tablet 50 mg PO BID 08/05/22 03/14/25 History multivitamin 1 tab PO DAILY 08/05/22 03/14/25 History omega 5-rlw-qnr-fish oil 60 mg-90 1 cap PO BID 04/12/23 03/14/25 History mg-500 mg capsule (Fish Oil) acetaminophen 500 mg capsule 500 - 1,000 mg PO Q6H PRN 10/28/24 03/14/25 History calcium 500 mg (as 1 tab PO DAILY 02/12/25 03/14/25 History carbonate)-vitamin D3 5 mcg (200 unit) tablet (Calcium 500 + D) cyclobenzaprine 10 mg tablet 10 mg PO TID PRN 02/12/25 03/14/25 History magnesium glycinate 100 mg (as 200 mg PO QHS 02/12/25 03/14/25 History glycinate) tablet (Mag Glycinate) naproxen sodium 220 mg tablet 220 mg PO DAILY 02/12/25 03/14/25 History vitamin A-vitamin C-vit E-min 1 tab PO DAILY 02/12/25 03/14/25 History tablet (Ocutabs tablet) Allergies Allergy/AdvReac Type Severity Reaction Status Date / Time cat dander Allergy Verified 03/14/25 08:20 perfume Allergy Verified 03/14/25 08:20 Exam Narrative: Exam Narrative: General: Alert and oriented, no acute distress. Nontoxic Respiratory: Equal breath rise bilaterally, maintained on room CV: Well perfused Abdomen: Moderate distention, soft, nontender to palpation. Positive bowel sounds. Const: Vital Signs, click to edit/add: Vital Signs - 24 hr 03/14/25 08:15 03/14/25 10:38 03/14/25 10:49 Temperature 98 F 98.5 F Pulse Rate 75 Pulse Rate [Right Pulse Oximeter] 94 74 Respiratory Rate 18 12 12 Blood Pressure 151/82 H Blood Pressure [Ri ght Arm] 130/71 Blood Pressure [Ri ght Upper Arm] 128/69 Pulse Oximetry 96 97 Oxygen Delivery Me thod Room Air Room Air 03/14/25 10:49 Temperature Pulse Rate Pulse Rate [Right Pulse Oximeter] Respiratory Rate 14 Blood Pressure Blood Pressure [Ri ght Arm] Blood Pressure [Ri ght Upper Arm] Pulse Oximetry Oxygen Delivery Me thod Room Air Results Labs Labs: Abnormal lab results 03/14/25 Range/Units 08:55 Neut % (Auto) 89.1 H (42.0-72.0) % Lymph % (Auto) 4.3 L (20-44) % Neut # (Auto) 7.90 H (1.7-7.0) K/uL Lymph # (Auto) 0.40 L (0.90-2.90) K/uL Sodium 125 L (135-149) mmol/L Chloride 89 L (96-114) mmol/L Glucose 134 H (60-115) mg/dL C-Reactive Protein 3.4 H (0.5-1.0) mg/dL Diabetes panel 03/14/25 Range/Units 08:55 Sodium 125 L (135-149) mmol/L Potassium 4.6 (3.6-5.1) mmol/L Chloride 89 L (96-114) mmol/L Carbon Dioxide 25 (20-32) mmol/L BUN 16 (7-30) mg/dL Creatinine 0.6 (0.5-1.5) mg/dL Glucose 134 H (60-115) mg/dL Calcium 10.0 (8.4-10.6) mg/dL AST 33 (12-35) U/L ALT 17 (4-35) U/L Alkaline Phosphatase 73 (40-150) U/L Total Protein 7.4 (6.0-8.3) g/dL Albumin 4.2 (3.3-5.0) g/dL Calcium panel 03/14/25 Range/Units 08:55 Calcium 10.0 (8.4-10.6) mg/dL Albumin 4.2 (3.3-5.0) g/dL Pituitary panel 03/14/25 Range/Units 08:55 Sodium 125 L (135-149) mmol/L Potassium 4.6 (3.6-5.1) mmol/L Chloride 89 L (96-114) mmol/L Carbon Dioxide 25 (20-32) mmol/L BUN 16 (7-30) mg/dL Creatinine 0.6 (0.5-1.5) mg/dL Glucose 134 H (60-115) mg/dL Calcium 10.0 (8.4-10.6) mg/dL Adrenal panel 03/14/25 Range/Units 08:55 Sodium 125 L (135-149) mmol/L Potassium 4.6 (3.6-5.1) mmol/L Chloride 89 L (96-114) mmol/L Carbon Dioxide 25 (20-32) mmol/L BUN 16 (7-30) mg/dL Creatinine 0.6 (0.5-1.5) mg/dL Glucose 134 H (60-115) mg/dL Calcium 10.0 (8.4-10.6) mg/dL Total Bilirubin 0.9 (0.1-1.5) mg/dL AST 33 (12-35) U/L ALT 17 (4-35) U/L Alkaline Phosphatase 73 (40-150) U/L Total Protein 7.4 (6.0-8.3) g/dL Albumin 4.2 (3.3-5.0) g/dL All other labs normal. Progress Note:A&P Assessment and plan (1) Partial small bowel obstruction: Status: Acute Assessment and Plan: Patient presents with clinical workup consistent with a partial small-bowel obstruction. Given the fact that this is the patient's 3rd hospitalization in the last month I did discuss with her recommendations for proceeding to the OR for lysis of adhesions. No imaging on this admission, but her previous CT scan demonstrated a transition point in the left lower quadrant near the small bowel anastomosis. At this time the patient does not want to proceed with surgery and is electing to continue with conservative management. Please call the on-call surgeon with any acute clinical changes, questions or concerns.
[2025-03-14 15:00] VITALS: BP 153/79; PULSE 51; RESP 18; TEMP 37; O2SAT 90
--- NOTE | 2025-03-14 18:52 | PC.NURSE ---
End of Shift: Patient pleasant and cooperative, A&O. VSS, afebrile. SpO2 maintained above 90% on RA. Patient reports pain in her abdomen this shift, declines PRN medication. Held metoprolol per parameters. Bowel sounds hypoactive. Pt reports passing gas this shift. Independent.
[2025-03-14 19:16] VITALS: BP 164/84; PULSE 87; RESP 16; TEMP 37; O2SAT 93
[2025-03-14 23:28] VITALS: BP 173/86; PULSE 95; RESP 16; TEMP 37.1; O2SAT 97
[2025-03-14] MEDS: METOPROLOL TARTRATE 1 MG/ML inj 5 MG IVP (23:37)
[2025-03-15] VITALS (8 sets, daily range): BP systolic 142–189; BP diastolic 74–102; PULSE 76–85; RESP 16–18; TEMP 36.8–37.2; O2SAT 93–99; BMI 20.6
[2025-03-15] MEDS: KETOROLAC 15 MG/ML inj IVP ×3 (02:32→18:54)
[2025-03-15] MEDS: SODIUM CHLORIDE 0.9 % (FLUSH) 10 ML SYRINGE 5 ML IVF (02:32)
[2025-03-15] MEDS: 5 % DEX/0.9 SOD CHL+KCL 20 mEq 1,000 ML 125 ML IV (03:39)
--- NOTE | 2025-03-15 05:45 | PC.NURSE ---
End of shift [id number]: A&O pleasant and cooperative. pt reporting intermittent abdominal pain. see eMAR for interventions. denies n/v. BS active in right quadrants and hypoactive in left. pt reports passing gas last evening. belly is round, distended and firm. VSS. up at liborio in room. ambulated in lewis multiple times last evening. using phu light appropriately.
[2025-03-15 06:27] LABS: Hematocrit* 32.6 % (33.0-51.0); Hemoglobin* 10.9 gm/dL (12.0-16.0); Mean Corpuscular HGB Conc 33 gm/dL (32-36); Mean Corpuscular Hemoglobin 30 pg (26-34); Mean Corpuscular Volume 90 fL (80-100); Platelet Count* 318 K/uL (140-440); Red Blood Count* 3.61 m/uL (4.00-5.20); White Blood Count* 5.89 K/uL (4.50-11.00)
[2025-03-15 06:28] LABS: Slide Review Reflex No
[2025-03-15 06:39] LABS: Albumin* 3.3 g/dL (3.3-5.0); Chloride* 102 mmol/L (96-114); Potassium* 4.2 mmol/L (3.6-5.1); Sodium* 132 mmol/L (135-149)
[2025-03-15 06:41] LABS: Blood Urea Nitrogen* 9 mg/dL (7-30); Creatinine* 0.5 mg/dL (0.5-1.5); Est. Creatinine Clearance* 32.79; Estimated Glomerular Filt Rate 91 ml/min
[2025-03-15 06:42] LABS: Alanine Aminotransferase* 13 U/L (4-35); Alkaline Phosphatase* 54 U/L (40-150); Anion Gap 7 mEq/L (7-15); Aspartate Amino Transferase* 26 U/L (12-35); Bilirubin Total* 0.5 mg/dL (0.1-1.5); Calcium* 8.9 mg/dL (8.4-10.6); Carbon Dioxide* 23 mmol/L (20-32); Glucose* 136 mg/dL (60-115); Magnesium* 1.6 mg/dL (1.5-2.6)
[2025-03-15 06:45] LABS: C Reactive Protein* 2.4 mg/dL (0.5-1.0)
[2025-03-15] MEDS: bisacodyL 10 MG SUPP.RECT PR (12:56)
[2025-03-15] MEDS: METOPROLOL TARTRATE 1 MG/ML inj 5 MG IVP ×2 (12:56→17:50)
--- NOTE | 2025-03-15 16:05 | PM.IMPN1 ---
Assessment and Plan Assessment and plan (1) Partial small bowel obstruction: Problem comment: -third occurrence this year (admitted to [facility] 02/11, , 03/14) -recurrent, 8th occurrence since 2020, requiring 2 previous surgeries -no evidence of infection/ischemia. no new imaging today but will after discussion with gen surg and see how she does -IVF, pain management, gen surg consult - 03/15/2025: Saline lock IV. Clear liquids as tolerated. Bisacodyl suppository. Continue with activities as tolerated. Status: Acute (2) H/O small bowel obstruction: Problem comment: first 2020 - (only abd surg hx was a Tubal ligation) - JOANA at [facility] 2021 - [facility]. JOANA [phone] 3 occurences; conservative tx 2024 - 3rd admisson as of 03/14/25; all conservative tx Status: Acute (3) Hyponatremia: Problem comment: -baseline NA 130's -125, will run NS without fluid restriction. if not correcting will add sodium tabs and protein when tolerating PO Status: Acute (4) Hypertension: Problem comment: -continue lisinopril and metoprolol when taking PO -hx of SVT/Afib and is sensitive when metoprolol is held Status: Chronic (5) Hypothyroid: Problem comment: -continue Levothyroxine when taking PO Status: Chronic Plan 1. Reviewed plans and recommendations with patient 2. Answered her questions 3. Patient is agreeable with above stated plans and recommendations Total Time Spent Total Time Spent: 20 minutes Subjective Date Seen: 03/15/25 Interval history: Hospital day 2, 03/15/2025: Recurrent partial small-bowel obstruction Abdominal bloating and discomfort is slowly decreasing. Passing flatus. Past 2 or 3 small, firm pellet size stools. Denies nausea or vomiting. Tolerating increased activities in hallways. Exam Narrative: Exam Narrative: I examined patient in her room and in the hallways. Appears comfortable in no acute distress. Ambulating the halls without difficulty. Still has bloated abdomen with bowel sounds now. Subjective discomfort without rebound or guarding. Skin is intact. No focal motor neurologic deficits Const: Vital Signs, click to edit/add: Vital Signs - 24 hr 03/14/25 19:16 03/14/25 23:28 03/15/25 02:37 Temperature 98.6 F 98.7 F 98.9 F Pulse Rate [Right Pulse Oximeter] 87 95 84 Respiratory Rate 16 16 16 Blood Pressure [Ri ght Arm] 164/84 H 173/86 H 189/91 H Pulse Oximetry 93 97 95 Oxygen Delivery Me thod Room Air Room Air Room Air 03/15/25 05:38 03/15/25 07:00 03/15/25 07:00 Temperature 98.3 F 98.5 F Pulse Rate [Right Pulse Oximeter] 76 85 85 Respiratory Rate 16 16 16 Blood Pressure [Ri ght Arm] 142/74 H 147/77 H Pulse Oximetry 96 96 Oxygen Delivery Me thod Room Air Room Air 03/15/25 11:00 Temperature 98.2 F Pulse Rate [Right Pulse Oximeter] 77 Respiratory Rate 16 Blood Pressure [Ri ght Arm] 189/99 H Pulse Oximetry 94 Oxygen Delivery Me thod Room Air Labs Labs: Laboratory Results - last 24 hr 03/15/25 06:10 WBC 5.89 RBC 3.61 L Hgb 10.9 L Hct 32.6 L MCV 90 MCH 30 MCHC 33 Plt Count 318 Sodium 132 L Potassium 4.2 Chloride 102 Carbon Dioxide 23 Anion Gap 7 BUN 9 Creatinine 0.5 Estimated Creat Clear 32.79 Estimated GFR 91 Glucose 136 H Calcium 8.9 Magnesium 1.6 Total Bilirubin 0.5 AST 26 ALT 13 Alkaline Phosphatase 54 C-Reactive Protein 2.4 H Total Protein 6.0 Albumin 3.3
--- NOTE | 2025-03-15 18:12 | PC.NURSE ---
Patient up walking the halls frequently throughout the shift. Started on clear liquids. Pt states that she feels more distention in her abdomen this afternoon. On assessment, patient's abdomen appears to be more firm/distended. Had multiple small marble sized hard stools today. Passing some gas. Bowel sounds are hypoactive.
[2025-03-15] MEDS: 5 % DEX/0.9 SOD CHL+KCL 20 mEq 1,000 ML 100 ML IV (18:54)
[2025-03-16] VITALS (7 sets, daily range): BP systolic 137–197; BP diastolic 62–102; PULSE 75–97; RESP 16; TEMP 36.6–37.7; O2SAT 95–97
[2025-03-16] MEDS: KETOROLAC 15 MG/ML inj IVP ×4 (00:44→19:11)
[2025-03-16] MEDS: 5 % DEX/0.9 SOD CHL+KCL 20 mEq 1,000 ML 100 ML IV (02:50)
[2025-03-16] MEDS: METOPROLOL TARTRATE 1 MG/ML inj 5 MG IVP ×4 (05:25→23:19)
--- NOTE | 2025-03-16 06:28 | PC.NURSE ---
End of shift [id number]: A&O pleasant and cooperative. VSS w/ sats >90% on RA. Rating pain in abdomen 2-6/10. See eMAR for interventions. Abdomen distended, and firm. BS active and pt reports frequently passing gas. Denies any n/v. Up at liborio. Ambulating in lewis multiple times throughout shift. Using call light appropriately.
[2025-03-16] MEDS: 5 % DEX/0.9 SOD CHL+KCL 20 mEq 1,000 ML 75 ML IV (11:38)
[2025-03-16] MEDS: ONDANSETRON ODT 4 MG TAB PO ×2 (13:01→21:00)
--- NOTE | 2025-03-16 14:38 | PM.IMPN1 ---
Assessment and Plan Assessment and plan (1) Partial small bowel obstruction: Problem comment: -third occurrence this year (admitted to [facility] 02/11, , 03/14) -recurrent, 8th occurrence since 2020, requiring 2 previous surgeries -no evidence of infection/ischemia. no new imaging today but will after discussion with gen surg and see how she does -IVF, pain management, gen surg consult - 03/15/2025: Saline lock IV. Clear liquids as tolerated. Bisacodyl suppository. Continue with activities as tolerated. - 03/16/2025: Continue clear liquids and IV fluids with increased activities as tolerated. Status: Acute (2) H/O small bowel obstruction: Problem comment: first 2020 - (only abd surg hx was a Tubal ligation) - JOANA at [facility] 2021 - [facility]. JOANA [phone] 3 occurences; conservative tx 2024 - 3rd admisson as of 03/14/25; all conservative tx Status: Acute (3) Hyponatremia: Problem comment: -baseline NA 130's -125, will run NS without fluid restriction. if not correcting will add sodium tabs and protein when tolerating PO Status: Acute (4) Hypertension: Problem comment: -continue lisinopril and metoprolol when taking PO -hx of SVT/Afib and is sensitive when metoprolol is held Status: Chronic (5) Hypothyroid: Problem comment: -continue Levothyroxine when taking PO Status: Chronic Plan 1. Reviewed impression, recommendations, plan with patient 2. Answered her questions 3. Patient agreeable with above stated plans and recommendations Total Time Spent Total Time Spent: 35 minutes Subjective Date Seen: 03/16/25 Interval history: Hospital day 3, 03/16/2025: Recurrent partial small-bowel obstruction Abdominal bloating and discomfort is only mildly improved, certainly not resolving. Is only 50% back to baseline. Passing flatus. Small stool past today, soft. Denies nausea or vomiting. Tolerating increased activities in hallways. Exam Narrative: Exam Narrative: I examined the patient in the hallway if she is walking and also in her room. Not acutely ill but appears to be uncomfortable. Vision and hearing are adequate. No icterus. No jaundice, petechiae, cyanosis, or rashes. Lungs are clear to auscultation without wheezing, rhonchi, or rales. Chest wall excursions are full. No CVA tenderness. Heart tones with regular rhythm, normal S1-S2. Abdomen with occasional tinkles and rushes. No borborygmi. Background level of gurgling. Somewhat distended. Subjective discomfort to palpation without rebound or guarding. Extremities without edema. No focal motor neurologic deficits. Capillary refill less than 3 seconds in upper and lower extremities. Const: Vital Signs, click to edit/add: Vital Signs - 24 hr 03/15/25 15:00 03/15/25 15:00 03/15/25 19:23 Temperature 98.8 F 98.7 F Pulse Rate [Right Pulse Oximeter] 84 85 85 Respiratory Rate 16 16 18 Blood Pressure [Ri ght Arm] 170/102 H 178/97 H Pulse Oximetry 93 99 Oxygen Delivery Hi thod Room Air Room Air 03/15/25 22:38 03/15/25 23:00 03/16/25 02:53 Temperature 98.8 F 99.8 F H Pulse Rate [Right Pulse Oximeter] 82 88 Respiratory Rate 16 16 16 Blood Pressure [Ri ght Arm] 147/82 H 137/62 Pulse Oximetry 96 95 Oxygen Delivery Hi thod Room Air Room Air 03/16/25 05:20 03/16/25 07:00 03/16/25 07:00 Temperature 98.5 F 98.5 F Pulse Rate [Right Pulse Oximeter] 92 75 80 Respiratory Rate 16 16 Blood Pressure [Ri ght Arm] 169/96 H 169/102 H Pulse Oximetry 96 95 Oxygen Delivery Hi thod Room Air Room Air 03/16/25 11:00 Temperature Pulse Rate [Right Pulse Oximeter] 84 Respiratory Rate 16 Blood Pressure [Ri ght Arm] 156/89 H Pulse Oximetry 96 Oxygen Delivery Hi thod Room Air
--- NOTE | 2025-03-16 15:01 | PC.NURSE ---
Patient is passing gas intermittently. Had 1 small bowel movement this shift. Bowel sounds are active. Patient still remains distended with intermittent nausea and cramping. Toradol given PRN for pain. Up walking the halls. Taking clear liquids.
[2025-03-16] MEDS: SODIUM CHLORIDE 0.9 % (FLUSH) 10 ML SYRINGE 5 ML IVF (23:20)
[2025-03-17] VITALS (7 sets, daily range): BP systolic 154–181; BP diastolic 76–99; PULSE 57–94; RESP 16–20; TEMP 36.7–37.6; O2SAT 94–95
[2025-03-17] MEDS: 5 % DEX/0.9 SOD CHL+KCL 20 mEq 1,000 ML 75 ML IV ×2 (00:35→13:54)
[2025-03-17] MEDS: KETOROLAC 15 MG/ML inj IVP ×2 (00:58→18:21)
[2025-03-17] MEDS: MORPHINE 2 MG/ML inj IVP ×2 (02:18→20:47)
[2025-03-17] MEDS: ONDANSETRON ODT 4 MG TAB PO ×2 (02:18→18:59)
[2025-03-17] MEDS: METOPROLOL TARTRATE 1 MG/ML inj 5 MG IVP (05:42)
[2025-03-17] MEDS: SODIUM CHLORIDE 0.9 % (FLUSH) 10 ML SYRINGE 5 ML IVF ×2 (05:43→20:47)
--- NOTE | 2025-03-17 05:58 | PC.NURSE ---
Shift note: Pt continue to report abdominal discomfort, fullness and intermittent nausea. PRN pain medications and Zofran given 2X tonight. Patient confirmed passing gas but no BM. No vomiting and fever recorded tonight. She continue on clear liquid diet. Bp has been high this shift. Scheduled Metoprolol given per protocol.
[2025-03-17 06:21] LABS: Hematocrit* 36.7 % (33.0-51.0); Hemoglobin* 12.2 gm/dL (12.0-16.0); Mean Corpuscular HGB Conc 33 gm/dL (32-36); Mean Corpuscular Hemoglobin 30 pg (26-34); Mean Corpuscular Volume 90 fL (80-100); Platelet Count* 346 K/uL (140-440); Red Blood Count* 4.06 m/uL (4.00-5.20); White Blood Count* 6.86 K/uL (4.50-11.00)
[2025-03-17 06:24] LABS: Slide Review Reflex No
[2025-03-17 06:32] LABS: Chloride* 97 mmol/L (96-114); Potassium* 4.9 mmol/L (3.6-5.1); Sodium* 129 mmol/L (135-149)
[2025-03-17 06:35] LABS: Anion Gap 6 mEq/L (7-15); Blood Urea Nitrogen* 3 mg/dL (7-30); Carbon Dioxide* 26 mmol/L (20-32); Creatinine* 0.6 mg/dL (0.5-1.5); Est. Creatinine Clearance* 32.79; Estimated Glomerular Filt Rate 87 ml/min; Phosphorus* 2.2 mg/dL (2.5-4.5)
[2025-03-17 06:36] LABS: Calcium* 9.3 mg/dL (8.4-10.6); Glucose* 117 mg/dL (60-115); Magnesium* 1.5 mg/dL (1.5-2.6)
[2025-03-17 06:38] LABS: C Reactive Protein* 1.2 mg/dL (0.5-1.0)
--- NOTE | 2025-03-17 07:00 | CRLHL7_ITS ---
For Patients: As a result of the Century Cures Act, medical imaging exams and procedure reports are released immediately into your electronic medical record. You may view this report before your referring provider. If you have questions, please contact your health care provider. Indication: Recent partial small bowel obstruction Technique: Abdomen 1 view. Comparison: None. Findings: Multiple distended bowel loops are identified within abdomen and pelvis, again concerning for developing small bowel obstruction. Radiographic follow-up is recommended. [id number] degenerative arthrosis of bilateral hips. Impression: Findings are again concerning for developing small bowel obstruction with distended bowel loops, predominantly in the lower abdomen and pelvis. Radiographic follow-up is recommended. Dictated by Anderson Martinez MD @ 03/17/2025 7:03:44 AM (Electronically Signed)
[2025-03-17] MEDS: METOPROLOL TARTRATE 50 MG TABLET PO ×2 (08:52→20:46)
[2025-03-17] MEDS: SODIUM CHLORIDE 1 GM TABLET PO ×3 (08:53→18:21)
[2025-03-17] MEDS: LEVOTHYROXINE 75 MCG TABLET PO (08:53)
--- NOTE | 2025-03-17 11:01 | PM.IMPN1 ---
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 no new imaging today but will after discussion with gen surg and see how she does -IVF, pain management, gen surg consult - 03/15/2025: Saline lock IV. Clear liquids as tolerated. Bisacodyl suppository. Continue with activities as tolerated. - 03/16/2025: Continue clear liquids and IV fluids with increased activities as tolerated. - 03/17/2025: I reviewed with patient my concern that her condition is relatively stagnant. Recommended attempt full liquid diet today. Discussed possibility of discharging in the next day or 2 if condition improves or remains stable verses re-consultation with general surgery if her condition does not improve or worsens. Status: Acute (2) H/O small bowel obstruction: Problem comment: first 2020 - (only abd surg hx was a Tubal ligation) - JOANA at [facility] 2021 - [facility]. JOANA [phone] 3 occurences; conservative tx 2024 - 3rd admisson as of 03/14/25; all conservative tx Status: Acute (3) Hyponatremia: Problem comment: -baseline NA 130's -125, will run NS without fluid restriction. -sodium chloride 1 g p.o. q.i.d. Status: Acute (4) Hypertension: Problem comment: -continue lisinopril and metoprolol when taking PO -hx of SVT/Afib and is sensitive when metoprolol is held Status: Chronic (5) Hypothyroid: Problem comment: -continue Levothyroxine when taking PO Status: Chronic Plan 1. Reviewed impression, plans, recommendations with patient 2. Answered her questions 3. Patient agreeable with above stated plans and recommendations Total Time Spent Total Time Spent: 40 minutes Subjective Date Seen: 03/17/25 Interval history: Hospital day 4, 03/17/2025: Recurrent partial small-bowel obstruction Abdominal bloating and discomfort is waxing and waning, certainly not resolving. Transient episode of nausea without vomiting last night with abdominal discomfort. Improved this morning. Is not back to baseline. Passing flatus. No stool today. Tolerating walking in hallways. Exam Narrative: Exam Narrative: Examine her in her room and in the hallway. Appears comfortable. Tolerating clear liquids. Lungs clear to auscultation. Heart tones with regular rhythm. Abdomen is bloated and tympanitic. Back ground gurgling sounds with occasional rushes. No tingling. No borborygmi. Slight discomfort to palpation. No rebound or guarding. Ambulates in hallways independently. No focal motor neurologic deficits. Hands are cool to touch. Const: Vital Signs, click to edit/add: Vital Signs - 24 hr 03/16/25 15:00 03/16/25 15:00 03/16/25 19:00 Temperature 97.8 F 99.9 F H Pulse Rate [Right Pulse Oximeter] 94 94 82 Respiratory Rate 16 16 16 Blood Pressure [Ri ght Arm] 173/89 H 184/91 H Pulse Oximetry 97 97 Oxygen Delivery Me thod Room Air Room Air 03/16/25 23:00 03/16/25 23:00 03/17/25 02:22 Temperature 98.5 F 98.6 F Pulse Rate [Right Pulse Oximeter] 97 97 87 Respiratory Rate 16 16 16 Blood Pressure [Ri ght Arm] 197/94 H 160/91 H Pulse Oximetry 97 94 Oxygen Delivery Me thod Room Air Room Air 03/17/25 05:41 03/17/25 08:22 Temperature 98.6 F Pulse Rate [Right Pulse Oximeter] 92 57 L Respiratory Rate 18 Blood Pressure [Ri ght Arm] 167/82 H 154/76 H Pulse Oximetry 95 Oxygen Delivery Me thod Room Air Labs Labs: Laboratory Results - last 24 hr 03/17/25 05:48 WBC 6.86 RBC 4.06 Hgb 12.2 Hct 36.7 MCV 90 MCH 30 MCHC 33 Plt Count 346 Sodium 129 L Potassium 4.9 Chloride 97 Carbon Dioxide 26 Anion Gap 6 L BUN 3 L Creatinine 0.6 Estimated Creat Clear 32.79 Estimated GFR 87 Glucose 117 H Calcium 9.3 Phosphorus 2.2 L Magnesium 1.5 C-Reactive Protein 1.2 H Imaging Abdominal x-ray: Attestation: I have reviewed the pertinent imaging results. Radiologist's impression: Findings: Multiple distended bowel loops are identified within abdomen and pelvis, again concerning for developing small bowel obstruction. Radiographic follow-up is recommended. [id number] degenerative arthrosis of bilateral hips. Impression: Findings are again concerning for developing small bowel obstruction with distended bowel loops, predominantly in the lower abdomen and pelvis.
--- NOTE | 2025-03-17 18:38 | PC.NURSE ---
Addendum entered by Anne Maguire RN 03/17/25 19:02: Pt. is now experiencing nausea, Zofran administered. Original Note: Pt. ambulating in hallway frequently. Reports experiencing abdominal bloating following full liquids. C/O pain rated 5/10 after eating yogurt this evening, Toradol administered. No nausea/vomiting. Bowel sounds hyperactive. Passing flatus.
[2025-03-17] MEDS: lisinopriL 5 MG TABLET 7.5 MG PO (20:46)
[2025-03-18] VITALS (25 sets, daily range): BP systolic 144–189; BP diastolic 62–109; PULSE 65–92; RESP 12–18; TEMP 36.3–37.6; O2SAT 91–96; BMI 21.2
[2025-03-18] MEDS: 5 % DEX/0.9 SOD CHL+KCL 20 mEq 1,000 ML 75 ML IV ×3 (02:24→20:45)
[2025-03-18] MEDS: KETOROLAC 15 MG/ML inj IVP ×2 (03:29→18:57)
--- NOTE | 2025-03-18 05:25 | PC.NURSE ---
Shift note: Patient appears to be doing well. Abdominal pain and nausea reduced. 1x Pain medication requested. Patient adequate sleep. Vitally stable. No BM yet but patient confirmed passing gas. Tolerating full liquid well.
[2025-03-18] MEDS: LEVOTHYROXINE 75 MCG TABLET PO (06:22)
[2025-03-18 08:07] LABS: Hematocrit* 37.1 % (33.0-51.0); Hemoglobin* 12.2 gm/dL (12.0-16.0); Mean Corpuscular HGB Conc 33 gm/dL (32-36); Mean Corpuscular Hemoglobin 30 pg (26-34); Mean Corpuscular Volume 91 fL (80-100); Platelet Count* 363 K/uL (140-440); White Blood Count* 7.03 K/uL (4.50-11.00)
[2025-03-18 08:13] LABS: Slide Review Reflex No
[2025-03-18 08:21] LABS: Chloride* 97 mmol/L (96-114); Potassium* 4.5 mmol/L (3.6-5.1); Sodium* 128 mmol/L (135-149)
[2025-03-18 08:24] LABS: Blood Urea Nitrogen* 4 mg/dL (7-30); Creatinine* 0.6 mg/dL (0.5-1.5); Est. Creatinine Clearance* 32.79; Estimated Glomerular Filt Rate 87 ml/min
[2025-03-18 08:25] LABS: Anion Gap 6 mEq/L (7-15); Calcium* 9.4 mg/dL (8.4-10.6); Carbon Dioxide* 25 mmol/L (20-32); Glucose* 111 mg/dL (60-115)
[2025-03-18 08:37] LABS: Magnesium* 1.5 mg/dL (1.5-2.6)
--- NOTE | 2025-03-18 09:54 | P.GSPN_ITS ---
Subjective Subjective Date Seen: 03/18/25 Interval history: Patient feels like she has stopped making improvement. She has been unable to advance her diet without increased distension and discomfort. She has continued to pass gas. No bowel movement. She is interested in pursuing surgery. Exam Narrative: Exam Narrative: General: Alert and oriented, no acute distress. Abdomen: Soft, moderate distention, some diffuse tenderness to palpation with no guarding or rebound. Const: Vital Signs, click to edit/add: Vital Signs - 24 hr 03/17/25 12:54 03/17/25 16:27 03/17/25 19:00 Temperature 99.6 F 98.1 F 99.1 F Pulse Rate [Right Pulse Oximeter] 74 82 94 Respiratory Rate 20 18 18 Blood Pressure [Ri ght Arm] 168/98 H 181/96 H 180/99 H Pulse Oximetry 94 95 94 Oxygen Delivery Me thod Room Air Room Air Room Air 03/17/25 23:00 03/17/25 23:00 03/18/25 02:24 Temperature 98.9 F 99.5 F Pulse Rate [Right Pulse Oximeter] 78 78 87 Respiratory Rate 18 18 18 Blood Pressure [Ri ght Arm] 155/89 H 147/62 H Pulse Oximetry 94 92 Oxygen Delivery Me thod Room Air Room Air 03/18/25 07:00 Temperature 98.2 F Pulse Rate [Right Pulse Oximeter] 92 Respiratory Rate 13 Blood Pressure [Ri ght Arm] 162/89 H Pulse Oximetry 95 Oxygen Delivery Me thod Room Air Labs/Imaging Labs Labs: No leukocytosis Imaging Imaging: No new imaging Progress Note:A&P Assessment and plan (1) Partial small bowel obstruction: Status: Acute Assessment and Plan: Patient presents with clinical workup consistent with a partial small-bowel obstruction. This is the patient's 3rd hospitalization in the last month. Patient has failed to progress to a regular diet with conservative management. Recommendations are to proceed to the OR for lysis of adhesions, possible small- bowel resection. Risks and benefits of the procedure were discussed at length the patient. All concerns and questions were addressed with her deciding to proceed. -continue NPO -OR for exploratory laparotomy, lysis of adhesions and possible small-bowel resection
[2025-03-18] MEDS: SODIUM CHLORIDE 0.9 % (FLUSH) 10 ML SYRINGE 5 ML IVF ×2 (10:14→21:41)
--- NOTE | 2025-03-18 10:51 | NUTR.NU ---
RDN with status update. Patient went to OR this morning due to unable to advance her diet without increased distension and discomfort. Patient went to OR for lysis of adhesions, possible small-bowel resection per General Surgery progress note. From MD reports, today is currently day 8 of inadequate oral intakes. Patient has been mainly NPO/clear liquid diet since 03/11/25. RDN recommends if patient does not advance her diet by Day 10, 03/20/25 to initiate PPN/TPN for nutrition. Of note, patient is at risk of malnutrition due to recent weight loss and inadequate oral intakes within the past month related to multiple hospitalizations for small bowel obstructions. RDN will continue to monitor and follow-up as appropriate.
[2025-03-18] MEDS: PIPERACILLIN/TAZOBACTAM 3.375 GM INJ IVPB (11:22)
--- NOTE | 2025-03-18 11:37 | W.ANESCHARGE ---
Anesthesia Charges Start Date/Time Anesthesia Start Date: 03/18/25 Anesthesia Start Time: 11:04 Stop Date/Time Anesthesia Stop Date: 03/18/25 Anesthesia Stop Time: 13:48 Summary Extremes of Age - Over 70 or under 1: MDA Coding CPT Codes CPT Codes: ANESTH SURG UPPER ABDOMEN - 06872 ([id number]) QK - CHAIN PERSON 2-4 CNCRNT ANES PROC, QX - WALKING DRAGLINE OILER SVC W/ MD MED DIRECTION, P3 - PATIENT W/SEVERE SYS DISEASE Additional Codes: Summary - Extremes of Age - Over 70 or under 1: MDA ([id number])
--- NOTE | 2025-03-18 11:37 | W.PM.NB ---
Nerve Block Nerve Block Time Seen by Provider: 11:15 Date Seen: 03/18/25 Type of block requested by surgeon for post-operative analgesia: TAP Side: bilateral Time out performed: Yes Verification of patient name: Yes Verification of date of : Yes Site marking: site marked Name of person performing procedure: Walker Continuous monitoring Was continuous monitoring of O2 sat, B/P, monitoring engineer, recorded every 15 minutes?: Yes Procedure Checklist: sterile prep, needles and gloves Ultrasound guided. Images saved: Yes Medications given in 5ml increments after negative aspiration: Marcaine %: 0.25 mL: 30 Needle gauge: 20 and Exparel mL: 10 Patient tolerated procedure well: Yes Additional comments: Needle noted between internal oblique and transversus abdominus. Local spread visualized Block Charges Block Charge (with Pro Fee): TAP Bilateral Use of Ultrasound Machine for Block: Yes- US Guidance/pain block
--- NOTE | 2025-03-18 12:11 | P.IMPN_ITS ---
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 no new imaging today but will after discussion with gen surg and see how she does -IVF, pain management, gen surg consult - 03/15/2025: Saline lock IV. Clear liquids as tolerated. Bisacodyl suppository. Continue with activities as tolerated. - 03/16/2025: Continue clear liquids and IV fluids with increased activities as tolerated. - 03/17/2025: I reviewed with patient my concern that her condition is relatively stagnant. Recommended attempt full liquid diet today. Discussed possibility of discharging in the next day or 2 if condition improves or remains stable verses re-consultation with general surgery if her condition does not improve or worsens. - 03/18/2025: Discussed with Dr. Campbell, general surgeon. Dr. Campbell is agreeable to see the patient in consultation and discussed possible surgical intervention with the patient as early as later today. Status: Acute (2) H/O small bowel obstruction: Problem comment: first 2020 - (only abd surg hx was a Tubal ligation) - JOANA at [facility] 2021 - [facility]. JOANA [phone] 3 occurences; conservative tx 2024 - 3rd admisson as of 03/14/25; all conservative tx Status: Acute (3) Hyponatremia: Problem comment: -baseline NA 130's -125, will run NS without fluid restriction. -sodium chloride 1 g p.o. q.i.d. Status: Acute (4) Hypothyroid: Problem comment: -continue Levothyroxine when taking PO Status: Chronic (5) Hypertension: Problem comment: -continue lisinopril and metoprolol when taking PO -hx of SVT/Afib and is sensitive when metoprolol is held Status: Chronic (6) Protein-calorie malnutrition, mild: Problem comment: - consider initiation of short-term parenteral nutrition postoperatively - has been subsiding on clear liquids or full liquids plus IV fluids for the last 2 weeks. Will discuss with general surgeon, Dr. Campbell. Status: Acute Plan 1. Reviewed impression with patient as well as recommendations 2. Answered patient's questions are satisfaction 3. Patient agreeable to above stated plans and recommendations Total Time Spent Total Time Spent: 30 minutes Subjective Date Seen: 03/18/25 Interval history: Hospital day 5, 03/18/2025: Recurrent partial small-bowel obstruction Persistent abdominal bloating and discomfort, waxing and waning, still not resolving. More episodes of nausea without vomiting last night with abdominal discomfort. Improved this morning when NPO. Is not back to baseline. Passing flatus intermittently. No stool today. Tolerating walking in hallways. Exam Narrative: Exam Narrative: Examined patient in her hospital room. No acute distress. Hard of hearing, does much better with her hearing aids in place. Vision is adequate. Alert and oriented x4. Lungs are clear to auscultation. Chest wall excursions are full. No CVA tenderness. Heart tones with regular rhythm. PMI not laterally displaced. Abdomen is bloated and tympanitic. Occasional rushes and tinkles. Soft and subjectively uncomfortable to palpation. No rebound or guarding. Independent with transfer, station, gait. No focal motor neurologic deficit. No icterus or jaundice. No petechiae, cyanosis, rashes. Const: Vital Signs, click to edit/add: Vital Signs - 24 hr 03/17/25 12:54 03/17/25 16:27 03/17/25 19:00 Temperature 99.6 F 98.1 F 99.1 F Pulse Rate [Right Pulse Oximeter] 74 82 94 Respiratory Rate 20 18 18 Blood Pressure [Ri ght Arm] 168/98 H 181/96 H 180/99 H Pulse Oximetry 94 95 94 Oxygen Delivery Me thod Room Air Room Air Room Air 03/17/25 23:00 03/17/25 23:00 03/18/25 02:24 Temperature 98.9 F 99.5 F Pulse Rate [Right Pulse Oximeter] 78 78 87 Respiratory Rate 18 18 18 Blood Pressure [Ri ght Arm] 155/89 H 147/62 H Pulse Oximetry 94 92 Oxygen Delivery Me thod Room Air Room Air 03/18/25 07:00 Temperature 98.2 F Pulse Rate [Right Pulse Oximeter] 92 Respiratory Rate 13 Blood Pressure [Ri ght Arm] 162/89 H Pulse Oximetry 95 Oxygen Delivery Me thod Room Air Labs Labs: Laboratory Results - last 24 hr 03/18/25 07:55 WBC 7.03 RBC 4.10 Hgb 12.2 Hct 37.1 MCV 91 MCH 30 MCHC 33 Plt Count 363 Sodium 128 L Potassium 4.5 Chloride 97 Carbon Dioxide 25 Anion Gap 6 L BUN 4 L Creatinine 0.6 Estimated Creat Clear 32.79 Estimated GFR 87 Glucose 111 Calcium 9.4 Magnesium 1.5
--- NOTE | 2025-03-18 13:30 | P.GSOP_ITS ---
Operative Note Date of procedure: 03/18/25 Pre-op diagnosis: Small bowel obstruction Post-op diagnosis: Same Type of Procedure: 1. Lysis of adhesions 2. Small bowel resection 3. Incidental appendectomy Indications: Patient is an 89-year-old female with frequent hospitalizations secondary to small-bowel obstruction. She has failed conservative management with recommendations to proceed to the operating room. Risks and benefits of operative intervention were discussed at length with the patient. Risks included but was not limited to: Bleeding, infection, risk of damage to surrounding structures, possible need for additional procedures and postoperative complications such as pneumonia, pulmonary emboli or [place]. All questions and concerns were addressed with the patient agreeing to proceed. Procedure Description: After discussing the risks and benefits of the procedure, the patient signed informed consent.? The operative site was marked and the patient was brought to the operating room and placed on the operating table in supine position.? Care was taken to pad the patient's pressure points.?? The patient was then intubated by anesthesia.?? A Menjivar was placed under sterile conditions. An NG tube was placed by Anesthesia. Tap blocks were performed. The operative site was then prepped and draped in the usual sterile fashion.? A time-out was then performed. A midline incision was made around the umbilicus over the previously well-healed scar. Dissection was carried down through subcutaneous tissue with cautery. The fascia was sharply incised and the abdomen entered. The incision was then extended superior and inferior with cautery. On the lateral aspect of the abdominal wall were some omental adhesions. Melo instruments were used to grasp the fascia, which was retracted and allowed for the adhesions to be taken down carefully with cautery. A medium Galo wound retractor was placed. The small bowel was dilated in appearance. In the left lower quadrant was the well- healed small-bowel anastomosis. Just proximal to this was a transition point with an overlying adhesion of omentum that was compressing the underlying bowel. This was tied off with 2 0 Vicryl before being ligated. Once ligated the small bowel was able to be run from ligament of Treitz to terminal ileum. The area of small bowel where the adhesion had been was scarred and strictured. The underlying lumen was less than 1 cm with palpation. The decision was made to resect this portion of small bowel. A point was identified for transection just proximal to the strictured bowel and previous anastomosis. Cautery was used to create an opening along the mesenteric border. A 100 mm hand-held stapler was used to transect the bowel. A distal point of transection was identified approximately 20 cm away from the terminal ileum. Cautery was used to create an opening along the mesenteric border. The hand-held stapler was used to transect the bowel. A small area of bleeding on the staple line was controlled with 3-0 Vicryl. The mesentery of the specimen was scored with cautery. There was a thick band of scar tissue on this area of the mesentery, which was broken up with cautery. The mesentery was then taken serially with clamps and 2-0 silk ties. The specimen was then passed off to be sent to pathology. At this point the small bowel was re-evaluated, with a 2 cm area of dark, malperfusion at the stapled end of the proximal limb. A new point of transection was identified proximal to this. Cautery was used to create an opening along the mesenteric border and the hand-held stapler used to transect an additional 2 cm of small bowel, which was sent with the specimen. The underlying mesentery was again tied off with 2-0 silk. A stay stitch of 0 silk was placed to help line up the 2 limbs of bowel. An enterotomy was created on each bowel limb approximately 1 cm away from the staple line. There was a size discrepancy between the 2 limbs given the proximal dilation associated with the bowel obstruction. The 100 mm hand-held stapler was placed into each limb and an anastomosis created. As the stapler was removed the anastomosis was carefully examined with no evidence of bleeding. The common enterotomy was then closed with 0 silk suture via Lembert stitches. A crotch stitch was placed. The mesenteric defect was closed with 3-0 Vicryl. The new anastomosis was palpated and widely patent. The decision was made to pursue an incidental appendectomy. Cautery was used to create an opening along the mesenteric border at the base of the appendix. The lumen of the appendix was crushed with a clamp. The base of the appendix was doubly ligated with 2-0 silk suture and transected just above. The exposed mucosa of the stump was cauterized. The stump was then dunked into the cecum with to 0 silk pop-off sutures. The mesentery was ligated with silk suture and the appendix sent with the small bowel specimen. The abdomen was then irrigated with normal saline. Omentum was placed over the anastomosis. The fascial incision was closed with two running 0 looped Maxon sutures. The incision was closed with interrupted 3 0 Vicryl and running 4-0 Monocryl. Sterile dressings were then applied. ? The patient was then woken and transported to the recovery area in stable condition. ? The patient tolerated the procedure well. Findings: Omental adhesion causing underlying structure of small bowel, lysis of adhesions with resection of small bowel. Incidental appendectomy. Anesthesia: GETA Surgeon: Nay Campbell MD Estimated blood loss (mL): 20 Additional Specimen Information: Small bowel and appendix Condition: stable Disposition: PACU
--- NOTE | 2025-03-18 13:57 | P.ANES_ITS ---
Anesthesia Charges Start Date/Time Anesthesia Start Date: 03/18/25 Anesthesia Start Time: 11:04 Stop Date/Time Anesthesia Stop Date: 03/18/25 Anesthesia Stop Time: 13:48 Summary Extremes of Age - Over 70 or under 1: COMPUTER HARDWARE DEVELOPER Coding CPT Codes CPT Codes: ANESTH SURG UPPER ABDOMEN - 19615 ([id number]) P3 - PATIENT W/SEVERE SYS DISEASE, QK - ANCILLARY SERVICES MANAGER THERAPY 2-4 CNCRNT ANES PROC, QX - COMPUTER HARDWARE DEVELOPER SVC W/ MD MED DIRECTION Additional Codes: Summary - Extremes of Age - Over 70 or under 1: COMPUTER HARDWARE DEVELOPER ([id number])
--- NOTE | 2025-03-18 13:57 | W.ANESCHARGE ---
Anesthesia Charges Start Date/Time Anesthesia Start Date: 03/18/25 Anesthesia Start Time: 11:04 Stop Date/Time Anesthesia Stop Date: 03/18/25 Anesthesia Stop Time: 13:48 Summary Extremes of Age - Over 70 or under 1: ORACLE ERP DEVELOPER Coding CPT Codes CPT Codes: ANESTH SURG UPPER ABDOMEN - 05601 ([id number]) P3 - PATIENT W/SEVERE SYS DISEASE, QK - ICT PROJECT MANAGER 2-4 CNCRNT ANES PROC, QX - ORACLE ERP DEVELOPER SVC W/ MD MED DIRECTION Additional Codes: Summary - Extremes of Age - Over 70 or under 1: ORACLE ERP DEVELOPER ([id number])
[2025-03-18] MEDS: fentaNYL 100 MCG/2 ML inj 50 MCG IVP (14:10)
[2025-03-18] MEDS: HYDROmorphone 0.5 mg/0.5 ml inj IVP ×2 (15:12→16:56)
[2025-03-18] MEDS: AA 4.25%/CALCIUM/LYTES/DEX 5 % 2,000 ML 25 ML IV (15:31)
[2025-03-18] MEDS: diphenhydrAMINE 50 MG/ML inj 25 MG IVP (17:42)
[2025-03-18] MEDS: METOPROLOL TARTRATE 1 MG/ML inj 5 MG IVP ×2 (19:01→23:13)
--- NOTE | 2025-03-18 19:24 | PC.NURSE ---
Patient returned to floor from partial resection @ 1445. Patients NG @ 23 Right Nare patent. Midline incision dressing clean, dry, and intact. Patient received prn medications for pain and BP. Patients IV's patent and call light appropriate.
[2025-03-18] MEDS: INSULIN ASPART 100 UNIT/ML SUBCUT (21:41)
[2025-03-18] MEDS: AA 4.25%/CALCIUM/LYTES/DEX 5 % 2,000 ML 50 ML IV (23:21)
[2025-03-19] MEDS: KETOROLAC 15 MG/ML inj IVP ×3 (01:05→15:46)
[2025-03-19] MEDS: HYDROmorphone 0.5 mg/0.5 ml inj IVP ×3 (01:33→19:47)
[2025-03-19] MEDS: diphenhydrAMINE 50 MG/ML inj 25 MG IVP (01:34)
[2025-03-19 03:00] VITALS: BP 140/71; PULSE 80; RESP 16; TEMP 37.3; O2SAT 93
--- NOTE | 2025-03-19 06:20 | PC.NURSE ---
End of shift report : VS WNL. Afebrile. AxOx4. On RA. NPO tolerating ice chips. Denies nausea. Rates abdominal pain a 3-10, PRN pain meds offered and given with relief. Intermittent ice applied. Menjivar is in place and patent. NG is at 52 cm at the nare. 100 mls of of dark red tinged output noted in suction. NG is patent in the R nare with low intermittent suction. Pt reports passing gas x1. Pt dangled and stood this shift. Tolerated standing for weight this am. Call light within reach.?
[2025-03-19 07:09] LABS: Hematocrit* 36.9 % (33.0-51.0); Hemoglobin* 12.3 gm/dL (12.0-16.0); Mean Corpuscular HGB Conc 33 gm/dL (32-36); Mean Corpuscular Hemoglobin 30 pg (26-34); Mean Corpuscular Volume 90 fL (80-100); Platelet Count* 291 K/uL (140-440); Red Blood Count* 4.08 m/uL (4.00-5.20); White Blood Count* 13.17 K/uL (4.50-11.00)
[2025-03-19 07:19] LABS: Slide Review Reflex No
[2025-03-19 07:24] LABS: Albumin* 3.3 g/dL (3.3-5.0); Chloride* 96 mmol/L (96-114); Sodium* 127 mmol/L (135-149)
[2025-03-19 07:25] LABS: Potassium* 4.7 mmol/L (3.6-5.1)
[2025-03-19 07:27] LABS: Alanine Aminotransferase* 20 U/L (4-35); Anion Gap 7 mEq/L (7-15); Aspartate Amino Transferase* 26 U/L (12-35); Blood Urea Nitrogen* 14 mg/dL (7-30); Carbon Dioxide* 24 mmol/L (20-32); Creatinine* 0.6 mg/dL (0.5-1.5); Est. Creatinine Clearance* 32.79; Estimated Glomerular Filt Rate 87 ml/min; Total Protein* 6.1 g/dL (6.0-8.3)
[2025-03-19 07:28] LABS: Alkaline Phosphatase* 57 U/L (40-150); Bilirubin Direct* 0.2 mg/dL (0.0-0.5); Bilirubin Total* 0.7 mg/dL (0.1-1.5); Calcium* 8.8 mg/dL (8.4-10.6); Glucose* 145 mg/dL (60-115); Magnesium* 1.9 mg/dL (1.5-2.6); Phosphorus* 2.5 mg/dL (2.5-4.5)
[2025-03-19 07:30] LABS: C Reactive Protein* 6.3 mg/dL (0.5-1.0)
[2025-03-19 07:45] VITALS: BP 142/90; PULSE 61; RESP 18; TEMP 37.4; O2SAT 90
--- NOTE | 2025-03-19 07:47 | P.GSPN_ITS ---
Subjective Subjective Date Seen: 03/19/25 Interval history: Patient is feeling better this morning. She feels much less distended. She did have a lot of pain at her incision site last night. This was able to be controlled with pain medication, Toradol and Dilaudid. She was able to dangle on the bed. She has not yet gotten up out of bed. Denies passing gas. No nausea or vomiting. Exam Narrative: Exam Narrative: General: Alert and oriented, no acute distress HEENT: NG tube in place with minimal dark output Abdomen: Mild distention, soft, appropriately tender over incision sites. Incision clean/dry/intact : Menjivar in place with small amount of dark urine Const: Vital Signs, click to edit/add: Vital Signs - 24 hr 03/18/25 13:43 03/18/25 13:50 03/18/25 13:55 Temperature 98.1 F Pulse Rate 84 82 86 Pulse Rate [Right Pulse Oximeter] Respiratory Rate 14 16 14 Blood Pressure 176/106 H 182/107 H 187/109 H Blood Pressure [Ri ght Arm] Pulse Oximetry 91 92 92 Oxygen Delivery Me thod Room Air Room Air Room Air Oxygen Flow Rate 03/18/25 14:00 03/18/25 14:05 03/18/25 14:10 Temperature 98.1 F Pulse Rate 86 78 65 Pulse Rate [Right Pulse Oximeter] Respiratory Rate 14 14 16 Blood Pressure 187/109 H 187/99 H 148/76 H Blood Pressure [Ri ght Arm] Pulse Oximetry 92 92 92 Oxygen Delivery Me thod Room Air Room Air OxyMask Oxygen Flow Rate 8 03/18/25 14:15 03/18/25 14:20 03/18/25 14:25 Temperature 98.0 F Pulse Rate 68 66 67 Pulse Rate [Right Pulse Oximeter] Respiratory Rate 14 16 14 Blood Pressure 145/85 H 144/81 H 153/83 H Blood Pressure [Ri ght Arm] Pulse Oximetry 91 94 94 Oxygen Delivery Me thod OxyMask OxyMask Room Air Oxygen Flow Rate 8 5 03/18/25 14:30 03/18/25 14:34 03/18/25 14:45 Temperature 98.2 F 97.4 F L Pulse Rate 66 72 78 Pulse Rate [Right Pulse Oximeter] Respiratory Rate 12 12 12 Blood Pressure 157/78 H 146/74 H 156/87 H Blood Pressure [Ri ght Arm] Pulse Oximetry 95 93 94 Oxygen Delivery Me thod Room Air Room Air Room Air Oxygen Flow Rate 03/18/25 15:00 03/18/25 15:15 03/18/25 15:30 Temperature 98.2 F 98.2 F 98.5 F Pulse Rate 79 73 Pulse Rate [Right Pulse Oximeter] 78 Respiratory Rate 12 12 14 Blood Pressure 157/79 H 147/81 H Blood Pressure [Ri ght Arm] 162/72 H Pulse Oximetry 96 94 92 Oxygen Delivery Me thod Room Air Room Air Room Air Oxygen Flow Rate 03/18/25 15:45 03/18/25 15:45 03/18/25 16:15 Temperature 98.5 F 98.5 F 98.5 F Pulse Rate 73 Pulse Rate [Right Pulse Oximeter] 73 73 Respiratory Rate 14 13 13 Blood Pressure 154/84 H Blood Pressure [Ri ght Arm] 154/84 H 167/90 H Pulse Oximetry 94 96 93 Oxygen Delivery Me thod Room Air Room Air Room Air Oxygen Flow Rate 03/18/25 16:15 03/18/25 17:29 03/18/25 18:45 Temperature 98.5 F 99.2 F 99.6 F Pulse Rate 73 81 90 Pulse Rate [Right Pulse Oximeter] Respiratory Rate 14 14 14 Blood Pressure 167/90 H 158/99 H 187/99 H Blood Pressure [Ri ght Arm] Pulse Oximetry 96 96 93 Oxygen Delivery Me thod Room Air Room Air Room Air Oxygen Flow Rate 03/18/25 19:45 03/18/25 20:45 03/18/25 22:19 Temperature 98.7 F 99.2 F Pulse Rate 88 86 Pulse Rate [Right Pulse Oximeter] Respiratory Rate 16 16 16 Blood Pressure 189/103 H 184/91 H Blood Pressure [Ri ght Arm] Pulse Oximetry 95 95 Oxygen Delivery Me thod Room Air Room Air Oxygen Flow Rate 03/18/25 23:00 03/19/25 03:00 Temperature 98.8 F 99.1 F Pulse Rate Pulse Rate [Right Pulse Oximeter] 91 80 Respiratory Rate 16 16 Blood Pressure Blood Pressure [Ri ght Arm] 181/95 H 140/71 H Pulse Oximetry 95 93 Oxygen Delivery Me thod Room Air Room Air Oxygen Flow Rate Labs/Imaging Labs Labs: Leukocytosis (13), CRP 6.3 Imaging Imaging: No new imaging Progress Note:A&P Assessment and plan (1) Partial small bowel obstruction: Status: Acute Assessment and Plan: Patient is postop day 1 exploratory laparotomy, lysis of adhesions and small- bowel resection. No acute events overnight. Patient remains hypertensive, afebrile. Abdominal exam is improved compared to preoperatively, appropriately tender over the incision site. Increased inflammatory markers expected in postoperative state, no concern for infection at this time. -NPO, okay for ice chips -NG tube to low intermittent suction. Okay to clamp for medications and walks -remove Menjivar -TPN being managed by hospitalist -SCDs, Amarilysnox for DVT prophylaxis
[2025-03-19] MEDS: ACETAMINOPHEN INJ 1,000 MG/100 ML VIAL 400 MG IVPB (08:06)
[2025-03-19] MEDS: METOPROLOL TARTRATE 25 MG TABLET PO ×2 (08:06→20:47)
[2025-03-19] MEDS: SODIUM CHLORIDE 0.9 % (FLUSH) 10 ML SYRINGE 5 ML IVF ×2 (08:06→19:48)
[2025-03-19] MEDS: 5 % DEX/0.9 SOD CHL+KCL 20 mEq 1,000 ML 55 ML IV (10:26)
[2025-03-19 11:15] VITALS: BP 158/78; PULSE 79; RESP 18; TEMP 36.9; O2SAT 96
--- NOTE | 2025-03-19 11:29 | P.IMPN_ITS ---
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 no new imaging today but will after discussion with gen surg and see how she does -IVF, pain management, gen surg consult - 03/15/2025: Saline lock IV. Clear liquids as tolerated. Bisacodyl suppository. Continue with activities as tolerated. - 03/16/2025: Continue clear liquids and IV fluids with increased activities as tolerated. - 03/17/2025: I reviewed with patient my concern that her condition is relatively stagnant. Recommended attempt full liquid diet today. Discussed possibility of discharging in the next day or 2 if condition improves or remains stable verses re-consultation with general surgery if her condition does not improve or worsens. - 03/18/2025: Discussed with Dr. Campbell, general surgeon. Dr. Campbell is agreeable to see the patient in consultation and discussed possible surgical intervention with the patient as early as later today. 03/19 - POD# 1 s/p exploratory laparotomy, lysis of adhesions and small-bowel resection, Dr. Campbell. NGT to remain in place, possibly to be removed on 03/20. Following general surgery recommendations. Encourage ambulation Status: Acute (2) H/O small bowel obstruction: Problem comment: first 2020 - (only abd surg hx was a Tubal ligation) - JOANA at [facility] 2021 - [facility]. JOANA [phone] 3 occurences; conservative tx 2024 - 3rd admisson as of 03/14/25; all conservative tx Status: Acute (3) Hyponatremia: Problem comment: -baseline NA 130's -125, will run NS without fluid restriction -sodium chloride 1 g p.o. q.i.d. - on hold while NPO 03/19 postoperatively 127, previously 128-129. Start oral sodium tabs when NGT is removed Status: Acute (4) Hypothyroid: Problem comment: -continue Levothyroxine when taking PO Status: Chronic (5) Hypertension: Problem comment: -continue lisinopril and metoprolol when taking PO -hx of SVT/Afib and is sensitive when metoprolol is held 03/19 - resuming oral metoprolol at 25 mg b.i.d., adjusting to 50 mg b.i.d. likely tomorrow Status: Chronic (6) Protein-calorie malnutrition, mild: Problem comment: - consider initiation of short-term parenteral nutrition postoperatively - has been subsiding on clear liquids or full liquids plus IV fluids for the last 2 weeks. Will discuss with general surgeon, Dr. Campbell. 03/19 - TPN has been initiated, Pharmacy and Nutrition following Status: Acute Total Time Spent Total Time Spent: Today I spent 45 minutes seeing the patient, reviewing Expanse and EPIC notes/diagnostics, discussing the care plan with our care time that includes social work, PT/OT, pharmacy, RT, residential and documenting my impressions and plan in the medical record. Subjective Date Seen: 03/19/25 Interval history: Patient is seen lying in bed this morning, POD#1, s/p exploratory laparotomy, lysis of adhesions and small-bowel resection, Dr Campbell. Reports feeling pretty well, some postoperative pain, improved with Toradol and ice pack. Had Dilaudid last night but does not want any further narcotics. Is planning to resume ambulation today. No headache or dizziness. No chest pain or shortness of breath. Remains NPO with NGT in place. Plan is to remove Menjivar catheter today. NGT will stay in place until at least tomorrow. Exam Narrative: Exam Narrative: PHYSICAL EXAM General: Pleasant, conversant, NAD HEENT: Normocephalic, atraumatic, sclera white, EOMI, oral mucosa moist Cardiovascular: IRRR. No pitting edema Pulmonary: CTA bilaterally without rhonchi, rales, expiratory wheezes. No dys pnea Abdominal: Soft, appropriate postoperative tenderness, dressing in place dry without surrounding erythema Neurological: Alert, answering questions appropriately, cranial nerves intact, no focal findings Extremities: No gross joint deformity or swelling. AROMI. Neurovascularly intact Skin: Warm, dry. Const: Vital Signs, click to edit/add: Vital Signs - 24 hr 03/18/25 13:43 03/18/25 13:50 03/18/25 13:55 Temperature 98.1 F Pulse Rate 84 82 86 Pulse Rate [Right Pulse Oximeter] Respiratory Rate 14 16 14 Blood Pressure 176/106 H 182/107 H 187/109 H Blood Pressure [Ri ght Arm] Pulse Oximetry 91 92 92 Oxygen Delivery Me thod Room Air Room Air Room Air Oxygen Flow Rate 03/18/25 14:00 03/18/25 14:05 03/18/25 14:10 Temperature 98.1 F Pulse Rate 86 78 65 Pulse Rate [Right Pulse Oximeter] Respiratory Rate 14 14 16 Blood Pressure 187/109 H 187/99 H 148/76 H Blood Pressure [Ri ght Arm] Pulse Oximetry 92 92 92 Oxygen Delivery Me thod Room Air Room Air OxyMask Oxygen Flow Rate 8 03/18/25 14:15 03/18/25 14:20 03/18/25 14:25 Temperature 98.0 F Pulse Rate 68 66 67 Pulse Rate [Right Pulse Oximeter] Respiratory Rate 14 16 14 Blood Pressure 145/85 H 144/81 H 153/83 H Blood Pressure [Ri ght Arm] Pulse Oximetry 91 94 94 Oxygen Delivery Me thod OxyMask OxyMask Room Air Oxygen Flow Rate 8 5 03/18/25 14:30 03/18/25 14:34 03/18/25 14:45 Temperature 98.2 F 97.4 F L Pulse Rate 66 72 78 Pulse Rate [Right Pulse Oximeter] Respiratory Rate 12 12 12 Blood Pressure 157/78 H 146/74 H 156/87 H Blood Pressure [Ri ght Arm] Pulse Oximetry 95 93 94 Oxygen Delivery Me thod Room Air Room Air Room Air Oxygen Flow Rate 03/18/25 15:00 03/18/25 15:15 03/18/25 15:30 Temperature 98.2 F 98.2 F 98.5 F Pulse Rate 79 73 Pulse Rate [Right Pulse Oximeter] 78 Respiratory Rate 12 12 14 Blood Pressure 157/79 H 147/81 H Blood Pressure [Ri ght Arm] 162/72 H Pulse Oximetry 96 94 92 Oxygen Delivery Me thod Room Air Room Air Room Air Oxygen Flow Rate 03/18/25 15:45 03/18/25 15:45 03/18/25 16:15 Temperature 98.5 F 98.5 F 98.5 F Pulse Rate 73 Pulse Rate [Right Pulse Oximeter] 73 73 Respiratory Rate 14 13 13 Blood Pressure 154/84 H Blood Pressure [Ri ght Arm] 154/84 H 167/90 H Pulse Oximetry 94 96 93 Oxygen Delivery Me thod Room Air Room Air Room Air Oxygen Flow Rate 03/18/25 16:15 03/18/25 17:29 03/18/25 18:45 Temperature 98.5 F 99.2 F 99.6 F Pulse Rate 73 81 90 Pulse Rate [Right Pulse Oximeter] Respiratory Rate 14 14 14 Blood Pressure 167/90 H 158/99 H 187/99 H Blood Pressure [Ri ght Arm] Pulse Oximetry 96 96 93 Oxygen Delivery Me thod Room Air Room Air Room Air Oxygen Flow Rate 03/18/25 19:45 03/18/25 20:45 03/18/25 22:19 Temperature 98.7 F 99.2 F Pulse Rate 88 86 Pulse Rate [Right Pulse Oximeter] Respiratory Rate 16 16 16 Blood Pressure 189/103 H 184/91 H Blood Pressure [Ri ght Arm] Pulse Oximetry 95 95 Oxygen Delivery Me thod Room Air Room Air Oxygen Flow Rate 03/18/25 23:00 03/19/25 03:00 03/19/25 07:45 Temperature 98.8 F 99.1 F 99.4 F Pulse Rate Pulse Rate [Right Pulse Oximeter] 91 80 61 Respiratory Rate 16 16 18 Blood Pressure Blood Pressure [Ri ght Arm] 181/95 H 140/71 H 142/90 H Pulse Oximetry 95 93 90 Oxygen Delivery Me thod Room Air Room Air Room Air Oxygen Flow Rate 03/19/25 07:45 03/19/25 11:15 Temperature 98.4 F Pulse Rate Pulse Rate [Right Pulse Oximeter] 61 79 Respiratory Rate 18 18 Blood Pressure Blood Pressure [Ri ght Arm] 158/78 H Pulse Oximetry 96 Oxygen Delivery Me thod Room Air Oxygen Flow Rate Labs Labs: Laboratory Results - last 24 hr 03/19/25 07:00 WBC 13.17 H RBC 4.08 Hgb 12.3 Hct 36.9 MCV 90 MCH 30 MCHC 33 Plt Count 291 Sodium 127 L Potassium 4.7 Chloride 96 Carbon Dioxide 24 Anion Gap 7 BUN 14 Creatinine 0.6 Estimated Creat Clear 32.79 Estimated GFR 87 Glucose 145 H Calcium 8.8 Phosphorus 2.5 Magnesium 1.9 Total Bilirubin 0.7 Direct Bilirubin 0.2 AST 26 ALT 20 Alkaline Phosphatase 57 C-Reactive Protein 6.3 H Total Protein 6.1 Albumin 3.3
--- NOTE | 2025-03-19 14:10 | PC.NURSE ---
End of shift. pt has been very pleasant. abd pain 0-3 in bed and 3-6/10 when up. she is getting IV meds for pain with relief. she is NPO, she can have ice chips. Denies nausea. active ice is on and off. Menjivar is patent. it was d/c intact this am, and she has not void so far. NG is at 52 cm to LIS. in the right nare. dark red tinged output in suction. Pt is passing gas. she was up walking. teds and scds are on and off. . Call light within reach.? IV is patent and SL in the left a/c was bad and d/c intact.
[2025-03-19 15:00] VITALS: BP 161/80; PULSE 88; RESP 18; TEMP 37.1; O2SAT 95
[2025-03-19] MEDS: AA 4.25%/CALCIUM/LYTES/DEX 5 % 2,000 ML 70 ML IV ×2 (15:47→16:18)
[2025-03-19] MEDS: PANTOPRAZOLE SODIUM 40 MG INJ IVP (15:47)
--- NOTE | 2025-03-19 15:54 | PC.SOCIAL ---
Social Work Consult: SW met with patient to see if there are any needs at home. Patient reports that she is doing well and can live on the main level. Patient states right now she is able to manage things and has some help from her 28 year old granddaughter who recently moved, if she were to need any additional support she could ask her. Patient states no concerns or support needed at this time.
[2025-03-19 19:00] VITALS: BP 182/86; PULSE 113; RESP 18; TEMP 38.2; O2SAT 92
--- NOTE | 2025-03-19 20:43 | CRLHL7_ITS ---
For Patients: As a result of the Century Cures Act, medical imaging exams and procedure reports are released immediately into your electronic medical record. You may view this report before your referring provider. If you have questions, please contact your health care provider. Indication: NG tube. Technique: Abdomen 1 view. Comparison: March 17, 2020. Findings/Impression: Bowel: Few loops of dilated bowel. Moderate colonic stool burden. Subdiaphragmatic enteric tube with tip in the stomach but proximal port in the lower esophagus. Recommend adjustment. Soft tissues: No sign of free air. No sign of soft tissue mass. No suspicious calcifications. Bones: Unremarkable for age. Dictated by Jose Cannon MD @ 03/19/2025 10:01:11 PM (Electronically Signed)
[2025-03-19] MEDS: ENOXAPARIN 40 MG/0.4 ML INJ SUBCUT (20:47)
[2025-03-19 23:00] VITALS: BP 151/71; PULSE 94; RESP 16; TEMP 36.9; O2SAT 95
[2025-03-20] VITALS (7 sets, daily range): BP systolic 135–157; BP diastolic 69–88; PULSE 63–93; RESP 12–18; TEMP 35.9–37.6; O2SAT 94–97
[2025-03-20] MEDS: KETOROLAC 15 MG/ML inj IVP ×3 (00:56→18:15)
[2025-03-20] MEDS: SODIUM CHLORIDE 0.9 % (FLUSH) 10 ML SYRINGE 5 ML IVF ×3 (00:56→19:58)
[2025-03-20] MEDS: 5 % DEX/0.9 SOD CHL+KCL 20 mEq 1,000 ML 55 ML IV ×2 (04:57→22:52)
--- NOTE | 2025-03-20 05:44 | PC.NURSE ---
Pt doing well, slept well during the night. pain controlled with medication. dressing to abd C/D/I, bowel sounds active x4, denies passing gas. denies N/V this shift. NG in with LIS, tolerating well. pt ind in room and halls, tolerates clamping NG to ambulate and take oral medications.
[2025-03-20 06:27] LABS: Hematocrit* 35.2 % (33.0-51.0); Hemoglobin* 11.9 gm/dL (12.0-16.0); Mean Corpuscular HGB Conc 34 gm/dL (32-36); Mean Corpuscular Hemoglobin 30 pg (26-34); Mean Corpuscular Volume 90 fL (80-100); Platelet Count* 166 K/uL (140-440); Red Blood Count* 3.93 m/uL (4.00-5.20); White Blood Count* 13.95 K/uL (4.50-11.00)
[2025-03-20 06:28] LABS: Slide Review Reflex No
[2025-03-20 06:59] LABS: Chloride* 94 mmol/L (96-114); Potassium* 4.8 mmol/L (3.6-5.1); Sodium* 125 mmol/L (135-149)
[2025-03-20 07:02] LABS: Anion Gap 6 mEq/L (7-15); Blood Urea Nitrogen* 21 mg/dL (7-30); Calcium* 9.1 mg/dL (8.4-10.6); Carbon Dioxide* 25 mmol/L (20-32); Creatinine* 0.6 mg/dL (0.5-1.5); Est. Creatinine Clearance* 32.79; Estimated Glomerular Filt Rate 87 ml/min; Glucose* 116 mg/dL (60-115)
[2025-03-20] MEDS: METOPROLOL TARTRATE 25 MG TABLET PO ×2 (08:46→19:57)
[2025-03-20] MEDS: HYDROCODONE-ACETAMIN 5-325 MG 1 TAB PO ×2 (08:52→14:40)
--- NOTE | 2025-03-20 08:52 | P.GSPN_ITS ---
Subjective Subjective Date Seen: 03/20/25 Interval history: Patient doing well this morning. Passed a small amount of gas and feels like things are moving. Incisional pain present, not getting worse and controlled with pain medication. Denies any nausea or vomiting. No concerns. Exam Narrative: Exam Narrative: Gen: alert and oriented, non toxic HEENT: NGT with minimal dark output Abd: soft, mod distension. Appropriately tender over incision sites without guarding or rebound. Outer dressing removed with steri strips in place. Const: Vital Signs, click to edit/add: Vital Signs - 24 hr 03/19/25 11:15 03/19/25 15:00 03/19/25 15:00 Temperature 98.4 F 98.7 F Pulse Rate [Right Pulse Oximeter] 79 88 88 Respiratory Rate 18 18 18 Blood Pressure [Ri ght Arm] 158/78 H 161/80 H Pulse Oximetry 96 95 Oxygen Delivery Me thod Room Air Room Air 03/19/25 19:00 03/19/25 23:00 03/20/25 02:24 Temperature 100.7 F H 98.5 F 97.2 F L Pulse Rate [Right Pulse Oximeter] 113 H 94 93 Respiratory Rate 18 16 16 Blood Pressure [Ri ght Arm] 182/86 H 151/71 H 157/76 H Pulse Oximetry 92 95 94 Oxygen Delivery Me thod Room Air Room Air Room Air 03/20/25 07:58 Temperature 96.7 F L Pulse Rate [Right Pulse Oximeter] 92 Respiratory Rate 16 Blood Pressure [Ri ght Arm] 157/83 H Pulse Oximetry 97 Oxygen Delivery Me thod Room Air Labs/Imaging Labs Labs: WBC 13 Imaging Imaging: AXR reviewed. NGT within the stomach, slightly high. Normal gas pattern with no dilated SB appreciated. Progress Note:A&P Assessment and plan (1) Partial small bowel obstruction: Status: Acute Assessment and Plan: Patient is postop day 2 exploratory laparotomy, lysis of adhesions and small- bowel resection. VSS. Passed gas this morning. Minimal output from NGT since placement. NGT removed this morning. -sips of clear liquid -TPN being managed by hospitalist, anticipate being able to titrate off once patient tolerating more po intake. - encourage ambulation -SCDs, Lovenox for DVT prophylaxis
[2025-03-20] MEDS: 3 % SODIUM CHLORIDE 500 ml 50 ML 33.33 ML IV (09:37)
--- NOTE | 2025-03-20 11:37 | P.IMPN_ITS ---
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 no new imaging today but will after discussion with gen surg and see how she does -IVF, pain management, gen surg consult - 03/15/2025: Saline lock IV. Clear liquids as tolerated. Bisacodyl suppository. Continue with activities as tolerated. - 03/16/2025: Continue clear liquids and IV fluids with increased activities as tolerated. - 03/17/2025: I reviewed with patient my concern that her condition is relatively stagnant. Recommended attempt full liquid diet today. Discussed possibility of discharging in the next day or 2 if condition improves or remains stable verses re-consultation with general surgery if her condition does not improve or worsens. - 03/18/2025: Discussed with Dr. Campbell, general surgeon. Dr. Campbell is agreeable to see the patient in consultation and discussed possible surgical intervention with the patient as early as later today. 03/19 - POD# 1 s/p exploratory laparotomy, lysis of adhesions and small-bowel resection, Dr. Campbell. NGT to remain in place, possibly to be removed on 03/20. Following general surgery recommendations. Encourage ambulation 03/20 - POD#2. NGT has been removed. Sips and chips for now. Likely clears tomorrow. Encourage ambulation Status: Acute (2) H/O small bowel obstruction: Problem comment: first 2020 - (only abd surg hx was a Tubal ligation) - JOANA at [facility] 2021 - [facility]. JOANA [phone] 3 occurences; conservative tx 2024 - 3rd admisson as of 03/14/25; all conservative tx Status: Acute (3) Hyponatremia: Problem comment: -baseline NA 130's -125, will run NS without fluid restriction -sodium chloride 1 g p.o. q.i.d. - on hold while NPO 03/19 postoperatively 127, previously 128-129. Start oral sodium tabs when NGT is removed 03/20 sodium 125. Will give 3% sodium 50 mL. Recheck sodium at noon. Sips and chips - sips of Gatorade, no free water other than ice chips Status: Acute (4) Hypothyroid: Problem comment: -continue Levothyroxine when taking PO Status: Chronic (5) Hypertension: Problem comment: -continue lisinopril and metoprolol when taking PO -hx of SVT/Afib and is sensitive when metoprolol is held 03/19 - resuming oral metoprolol at 25 mg b.i.d., adjusting to 50 mg b.i.d. likely tomorrow Status: Chronic (6) Protein-calorie malnutrition, mild: Problem comment: - consider initiation of short-term parenteral nutrition postoperatively - has been subsiding on clear liquids or full liquids plus IV fluids for the last 2 weeks. Will discuss with general surgeon, Dr. Campbell. 03/19 - TPN has been initiated, Pharmacy and Nutrition following Status: Acute Total Time Spent Total Time Spent: Today I spent 45 minutes seeing the patient, reviewing Expanse and EPIC notes/diagnostics, discussing the care plan with our care time that includes social work, PT/OT, pharmacy, RT, prison and documenting my impressions and plan in the medical record. Subjective Date Seen: 03/20/25 Interval history: Patient is seen resting in bed this morning. NG tube has just been removed by General surgery. Continues with mild abdominal discomfort postoperatively. No nausea. Start with sips and chips this morning. Remains afebrile. Sodium trending down, currently 125. Exam Narrative: Exam Narrative: PHYSICAL EXAM General: Pleasant, conversant, NAD Cardiovascular: IRRR. No pitting edema Pulmonary: CTA bilaterally without rhonchi, rales, expiratory wheezes. No dyspnea Abdominal: Soft, appropriate postoperative tenderness, dressing in place dry without surrounding erythema Neurological: Alert, answering questions appropriately, cranial nerves intact, no focal findings Extremities: No gross joint deformity or swelling. AROMI. Neurovascularly intact Skin: Warm, dry. Const: Vital Signs, click to edit/add: Vital Signs - 24 hr 03/19/25 15:00 03/19/25 15:03/19/25 19:00 Temperature 98.7 F 100.7 F H Pulse Rate [Right Pulse Oximeter] 88 88 113 H Respiratory Rate 18 18 18 Blood Pressure [Ri ght Arm] 161/80 H 182/86 H Pulse Oximetry 95 92 Oxygen Delivery Me thod Room Air Room Air 03/19/25 23:00 03/20/25 02:24 03/20/25 07:58 Temperature 98.5 F 97.2 F L 96.7 F L Pulse Rate [Right Pulse Oximeter] 94 93 92 Respiratory Rate 16 16 16 Blood Pressure [Ri ght Arm] 151/71 H 157/76 H 157/83 H Pulse Oximetry 95 94 97 Oxygen Delivery Me thod Room Air Room Air Room Air 03/20/25 07:58 03/20/25 11:07 Temperature 99.6 F Pulse Rate [Right Pulse Oximeter] 92 67 Respiratory Rate 16 12 [facility] 141/70 H Pulse Oximetry 97 Oxygen Delivery Me thod Room Air Labs Labs: Laboratory Results - last 24 hr 03/20/25 06:20 WBC 13.95 H RBC 3.93 L Hgb 11.9 L Hct 35.2 MCV 90 MCH 30 MCHC 34 Plt Count 166 Sodium 125 L Potassium 4.8 Chloride 94 L Carbon Dioxide 25 Anion Gap 6 L BUN 21 Creatinine 0.6 Estimated Creat Clear 32.79 Estimated GFR 87 Glucose 116 H Calcium 9.1
[2025-03-20 12:28] LABS: Sodium* 126 mmol/L (135-149)
--- NOTE | 2025-03-20 14:18 | PC.NURSE ---
End of Shift: Patient pleasant and cooperative. Patient vitally stable, lungs clear, BS WNL, abdomen soft but distended, IV running PPN at 70ml and D5NS0.9KCL at 55ml. Abdominal incision C/D/I with steri strips. Patient has rated pain at most 5-6/10, toradol and norco given once with pain decreasing to 2/10. Patient tolerating sips and chips, patient urinating well, and reports passing gas, no BM. Patient independent ambulates independently. Ice pack and aqua K pad in use.
[2025-03-20] MEDS: PANTOPRAZOLE SODIUM 40 MG INJ IVP (17:15)
[2025-03-20] MEDS: AA 4.25%/CALCIUM/LYTES/DEX 5 % 2,000 ML 70 ML IV (17:51)
--- NOTE | 2025-03-20 19:26 | PC.NURSE ---
End of shift - RN took over pt care at approximately 1500. Pt alert, oriented, cooperative. Up independently in room and ambulating in halls. VSS, denies SOB, n/v/ Reported pain in abdomen as 2-5/10. Given medication per MAR for comfort with pt reporting improvement. Family at bedside during shift, appears to be resting comfortably in bed at end of shift with call light within reach.
[2025-03-20] MEDS: ENOXAPARIN 40 MG/0.4 ML INJ SUBCUT (19:57)
[2025-03-21] MEDS: KETOROLAC 15 MG/ML inj IVP ×3 (02:29→18:07)
[2025-03-21 03:00] VITALS: BP 164/80; PULSE 75; RESP 16; TEMP 36.6; O2SAT 98
[2025-03-21 06:21] LABS: Hematocrit* 29.4 % (33.0-51.0); Mean Corpuscular HGB Conc 34 gm/dL (32-36); Mean Corpuscular Hemoglobin 30 pg (26-34); Mean Corpuscular Volume 89 fL (80-100); Platelet Count* 302 K/uL (140-440); Red Blood Count* 3.31 m/uL (4.00-5.20); Slide Review Reflex No; White Blood Count* 8.35 K/uL (4.50-11.00)
[2025-03-21 06:32] LABS: Chloride* 98 mmol/L (96-114); Potassium* 4.6 mmol/L (3.6-5.1); Sodium* 125 mmol/L (135-149)
[2025-03-21 06:35] LABS: Blood Urea Nitrogen* 23 mg/dL (7-30); Creatinine* 0.5 mg/dL (0.5-1.5); Est. Creatinine Clearance* 32.67; Estimated Glomerular Filt Rate 91 ml/min
[2025-03-21 06:36] LABS: Anion Gap 3 mEq/L (7-15); Carbon Dioxide* 24 mmol/L (20-32); Glucose* 121 mg/dL (60-115)
--- NOTE | 2025-03-21 06:43 | PC.NURSE ---
End of shift report : VSS. AxOx4. Afebrile. Denies nausea. Pt rates pain a 2-4, pain meds offered and given with relief.?Abdominal incision is well approximated and steri strips are C/D/I. Pt is NPO tolerating ice chips. Pt is independent in room. Intermittent ice applied.?Call light within reach.?
[2025-03-21 08:12] VITALS: BP 175/88; PULSE 81; RESP 14; TEMP 37.6; O2SAT 95
[2025-03-21] MEDS: HYDROCODONE-ACETAMIN 5-325 MG 1 TAB PO ×3 (08:19→21:08)
[2025-03-21] MEDS: METOPROLOL TARTRATE 25 MG TABLET PO (08:42)
--- NOTE | 2025-03-21 10:08 | P.IMPN_ITS ---
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 no new imaging today but will after discussion with gen surg and see how she does -IVF, pain management, gen surg consult - 03/15/2025: Saline lock IV. Clear liquids as tolerated. Bisacodyl suppository. Continue with activities as tolerated. - 03/16/2025: Continue clear liquids and IV fluids with increased activities as tolerated. - 03/17/2025: I reviewed with patient my concern that her condition is relatively stagnant. Recommended attempt full liquid diet today. Discussed possibility of discharging in the next day or 2 if condition improves or remains stable verses re-consultation with general surgery if her condition does not improve or worsens. - 03/18/2025: Discussed with Dr. Campbell, general surgeon. Dr. Campbell is agreeable to see the patient in consultation and discussed possible surgical intervention with the patient as early as later today. 03/19 - POD# 1 s/p exploratory laparotomy, lysis of adhesions and small-bowel resection, Dr. Campbell. NGT to remain in place, possibly to be removed on 03/20. Following general surgery recommendations. Encourage ambulation 03/20 - POD#2. NGT has been removed. Sips and chips for now. Likely clears tomorrow. Encourage ambulation 03/21 - POD#3. Confirming with General surgery that plan is to begin clear liquid diet. Will resume home oral medications Status: Acute (2) H/O small bowel obstruction: Problem comment: first 2020 - (only abd surg hx was a Tubal ligation) - JOANA at [facility] 2021 - [facility] [place]. JOANA [id number] 3 occurences; conservative tx 2024 - 3rd admisson as of 03/14/25; all conservative tx Status: Acute (3) Hyponatremia: Problem comment: -baseline NA 130's -125, will run NS without fluid restriction -sodium chloride 1 g p.o. q.i.d. - on hold while NPO 03/19 postoperatively 127, previously 128-129. Start oral sodium tabs when NGT is removed 03/20 sodium 125. Will give 3% sodium 50 mL. Recheck sodium at noon. Sips and chips - sips of Gatorade, no free water other than ice chips 03/21 sodium up to 126 following 3% sodium yesterday, 125 again this morning. With clears, will encourage sodium intake as well as begin sodium tablets. Status: Acute (4) Hypothyroid: Problem comment: Resume levothyroxine Status: Chronic (5) Hypertension: Problem comment: -continue lisinopril and metoprolol when taking PO -hx of SVT/Afib and is sensitive when metoprolol is held Resume metoprolol and lisinopril Status: Chronic (6) Protein-calorie malnutrition, mild: Problem comment: - consider initiation of short-term parenteral nutrition postoperatively - has been subsiding on clear liquids or full liquids plus IV fluids for the last 2 weeks. Will discuss with general surgeon, Dr. Campbell. 03/19 - TPN has been initiated, Pharmacy and Nutrition following 03/21 - will confirm with General surgery if okay to discontinue PPN following completion of current bag while starting clears Status: Acute Plan Discharge plan per General surgery Total Time Spent Total Time Spent: Today I spent 45 minutes seeing the patient, reviewing Expanse and EPIC notes/diagnostics, discussing the care plan with our care time that includes social work, PT/OT, pharmacy, RT, half-way and documenting my impressions and plan in the medical record. Subjective Date Seen: 03/21/25 Interval history: Patient is seen sitting up in bed this morning. Has been walking the hallways already. Feeling better. Pain has improved. She is passing a good amount of flatus this morning. Tolerated sips and chips yesterday. Plan is to proceed with clears today. Exam Narrative: Exam Narrative: PHYSICAL EXAM General: Pleasant, conversant, NAD Cardiovascular: IRRR. No pitting edema Pulmonary: CTA bilaterally without rhonchi, rales, expiratory wheezes. No dyspnea Abdominal: Soft, appropriate postoperative tenderness, dressing in place dry without surrounding erythema Neurological: Alert, answering questions appropriately, cranial nerves intact, no focal findings Extremities: No gross joint deformity or swelling. AROMI. Neurovascularly intact Skin: Warm, dry. Const: Vital Signs, click to edit/add: Vital Signs - 24 hr 03/20/25 11:07 03/20/25 15:00 03/20/25 19:00 Temperature 99.6 F 99.3 F 99.1 F Pulse Rate [Right Pulse Oximeter] 67 83 73 Respiratory Rate 12 18 16 Blood Pressure [Ri ght Arm] 141/70 H 157/88 H 150/71 H Pulse Oximetry 97 96 97 Oxygen Delivery Me thod Room Air Room Air Room Air 03/20/25 22:26 03/20/25 23:00 03/21/25 03:00 Temperature 97.7 F 98 F Pulse Rate [Right Pulse Oximeter] 73 63 75 Respiratory Rate 16 16 16 Blood Pressure [Ri ght Arm] 135/69 164/80 H Pulse Oximetry 97 98 Oxygen Delivery Me thod Room Air Room Air 03/21/25 08:12 03/21/25 08:12 Temperature 99.7 F H Pulse Rate [Right Pulse Oximeter] 81 81 Respiratory Rate 14 14 Blood Pressure [Ri ght Arm] 175/88 H Pulse Oximetry 95 Oxygen Delivery Me thod Room Air Labs Labs: Laboratory Results - last 24 hr 03/20/25 03/21/25 12:10 06:10 WBC 8.35 RBC 3.31 L Hgb 10.0 L Hct 29.4 L MCV 89 MCH 30 MCHC 34 Plt Count 302 Sodium 126 L 125 L Potassium 4.6 Chloride 98 Carbon Dioxide 24 Anion Gap 3 L BUN 23 Creatinine 0.5 Estimated Creat Clear 32.67 Estimated GFR 91 Glucose 121 H Calcium 9.0
[2025-03-21 11:08] VITALS: BP 151/67; PULSE 68; RESP 16; TEMP 36.4; O2SAT 97
[2025-03-21] MEDS: SODIUM CHLORIDE 1 GM TABLET PO ×2 (11:48→18:06)
--- NOTE | 2025-03-21 14:59 | P.GSPN_ITS ---
Subjective Subjective Date Seen: 03/21/25 Interval history: Patient doing okay today. She passed gas this morning and has been tolerating clear liquids. She had some broth for lunch, now feeling more bloated. No bowel movement. No significant appetite. Has been walking the halls without difficulty. Exam Narrative: Exam Narrative: Abdomen: Increased lower abdominal distension with some tenderness to palpation. No guarding or rebound. Non peritoneal. Midline incision with Steri-Strips in place clean/dry/intact. Const: Vital Signs, click to edit/add: Vital Signs - 24 hr 03/20/25 15:00 03/20/25 19:00 03/20/25 22:26 Temperature 99.3 F 99.1 F Pulse Rate [Right Pulse Oximeter] 83 73 73 Respiratory Rate 18 16 16 Blood Pressure [Ri ght Arm] 157/88 H 150/71 H Pulse Oximetry 96 97 Oxygen Delivery Ri thod Room Air Room Air 03/20/25 23:00 03/21/25 03:00 03/21/25 08:12 Temperature 97.7 F 98 F 99.7 F H Pulse Rate [Right Pulse Oximeter] 63 75 81 Respiratory Rate 16 16 14 Blood Pressure [Ri ght Arm] 135/69 164/80 H 175/88 H Pulse Oximetry 97 98 95 Oxygen Delivery Ri thod Room Air Room Air Room Air 03/21/25 08:12 03/21/25 11:08 Temperature 97.6 F Pulse Rate [Right Pulse Oximeter] 81 68 Respiratory Rate 14 16 Blood Pressure [Ri ght Arm] 151/67 H Pulse Oximetry 97 Oxygen Delivery Ri thod Room Air Labs/Imaging Labs Labs: No leukocytosis. Hemoglobin 10, likely dilution Progress Note:A&P Assessment and plan (1) Partial small bowel obstruction: Status: Acute Assessment and Plan: Patient is postop day 3 exploratory laparotomy, lysis of adhesions and small- bowel resection. Passing gas and started clear liquids. On examination for me this afternoon is more distended and having discomfort in her lower abdomen. -clear liquid, would not advance further until patient passes more gas or has improvement in her examination. -TPN scheduled to stop this afternoon - encourage ambulation -SCDs, Lovenox for DVT prophylaxis
[2025-03-21] MEDS: PANTOPRAZOLE SODIUM 40 MG INJ IVP (15:34)
[2025-03-21 15:37] VITALS: BP 165/79; PULSE 56; RESP 16; TEMP 36.2; O2SAT 95
--- NOTE | 2025-03-21 18:26 | PC.NURSE ---
End of Shift: Patient pleasant and cooperative. Patient vitally stable, lungs clear, BS WNL, IV SL and intact. Patient rates abdominal pain at most 5/10, norco and toradol given twice. Abdominal dressing C/D/I. Patient tolerating clear liquid diet, urinating well, and passing gas. Patient has consumed one broth, one clear ensure, and water. Patient independent.
[2025-03-21 19:00] VITALS: BP 172/70; PULSE 78; RESP 16; TEMP 36.6; O2SAT 97
[2025-03-21] MEDS: ENOXAPARIN 40 MG/0.4 ML INJ SUBCUT (21:06)
[2025-03-21] MEDS: lisinopriL 5 MG TABLET 7.5 MG PO (21:06)
[2025-03-21] MEDS: METOPROLOL TARTRATE 50 MG TABLET PO (21:07)
[2025-03-21] MEDS: SODIUM CHLORIDE 0.9 % (FLUSH) 10 ML SYRINGE 5 ML IVF (21:08)
[2025-03-21 23:00] VITALS: BP 135/74; PULSE 69; RESP 16; TEMP 36.4; O2SAT 97
[2025-03-22] VITALS (7 sets, daily range): BP systolic 127–166; BP diastolic 68–86; PULSE 64–82; RESP 18; TEMP 36.3–36.8; O2SAT 96–100
[2025-03-22] MEDS: KETOROLAC 15 MG/ML inj IVP ×3 (02:44→22:38)
[2025-03-22] MEDS: LEVOTHYROXINE 75 MCG TABLET PO (05:29)
[2025-03-22] MEDS: HYDROCODONE-ACETAMIN 5-325 MG 1 TAB PO (05:43)
--- NOTE | 2025-03-22 06:37 | PC.NURSE ---
End of shift report [id number]: Alert and oriented x 4. Pain well managed with current regimen. Midline abdominal incision secured with steri strips and open to air, incision well approximated with no drainage or redness noted. Bowel sounds active in upper quadrants and hypoactive in lower quadrants. Patient passing flatus. Abdomen continues to be distended with tenderness to palpation. Denies any nausea. Tolerating clear liquid diet well.
[2025-03-22 06:43] LABS: Hematocrit* 28.5 % (33.0-51.0); Hemoglobin* 9.7 gm/dL (12.0-16.0); Mean Corpuscular HGB Conc 34 gm/dL (32-36); Mean Corpuscular Hemoglobin 30 pg (26-34); Mean Corpuscular Volume 89 fL (80-100); Platelet Count* 320 K/uL (140-440); Red Blood Count* 3.21 m/uL (4.00-5.20); White Blood Count* 6.28 K/uL (4.50-11.00)
[2025-03-22 06:46] LABS: Slide Review Reflex No
[2025-03-22 06:57] LABS: Chloride* 97 mmol/L (96-114); Potassium* 4.4 mmol/L (3.6-5.1); Sodium* 129 mmol/L (135-149)
[2025-03-22 07:01] LABS: Anion Gap 9 mEq/L (7-15); Blood Urea Nitrogen* 23 mg/dL (7-30); Carbon Dioxide* 23 mmol/L (20-32); Creatinine* 0.7 mg/dL (0.5-1.5); Estimated Glomerular Filt Rate 84 ml/min; Glucose* 91 mg/dL (60-115)
[2025-03-22] MEDS: SODIUM CHLORIDE 1 GM TABLET PO ×3 (08:33→18:08)
[2025-03-22] MEDS: METOPROLOL TARTRATE 50 MG TABLET PO ×2 (08:33→21:17)
[2025-03-22] MEDS: SODIUM CHLORIDE 0.9 % (FLUSH) 10 ML SYRINGE 5 ML IVF ×2 (08:34→21:16)
--- NOTE | 2025-03-22 10:17 | P.IMPN_ITS ---
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 no new imaging today but will after discussion with gen surg and see how she does -IVF, pain management, gen surg consult - 03/15/2025: Saline lock IV. Clear liquids as tolerated. Bisacodyl suppository. Continue with activities as tolerated. - 03/16/2025: Continue clear liquids and IV fluids with increased activities as tolerated. - 03/17/2025: I reviewed with patient my concern that her condition is relatively stagnant. Recommended attempt full liquid diet today. Discussed possibility of discharging in the next day or 2 if condition improves or remains stable verses re-consultation with general surgery if her condition does not improve or worsens. - 03/18/2025: Discussed with Dr. Cambpell, general surgeon. Dr. Campbell is agreeable to see the patient in consultation and discussed possible surgical intervention with the patient as early as later today. 03/19 - POD# 1 s/p exploratory laparotomy, lysis of adhesions and small-bowel resection, Dr. Campbell. NGT to remain in place, possibly to be removed on 03/20. Following general surgery recommendations. Encourage ambulation 03/20 - POD#2. NGT has been removed. Sips and chips for now. Likely clears tomorrow. Encourage ambulation 03/21 - POD#3. Confirming with General surgery that plan is to begin clear liquid diet. Will resume home oral medications 03/22 - POD#4. Distention improving. Hgb 12.3-11.9-10-9.7, discussed with Dr. Campbell, thought to be dilutional, continue to follow. Diet advancement per General Surgery Status: Acute (2) H/O small bowel obstruction: Problem comment: first 2020 - (only abd surg hx was a Tubal ligation) - JOANA at [facility] 2021 - [facility] - [place]. JOANA [id number] 3 occurences; conservative tx 2024 - 3rd admisson as of 03/14/25; all conservative tx Status: Chronic (3) Hyponatremia: Problem comment: Acute on chronic -baseline NA 130's -125, will run NS without fluid restriction -sodium chloride 1 g p.o. q.i.d. - on hold while NPO 03/19 postoperatively 127, previously 128-129. Start oral sodium tabs when NGT is removed 03/20 sodium 125. Will give 3% sodium 50 mL. Recheck sodium at noon. Sips and chips - sips of Gatorade, no free water other than ice chips 03/21 sodium up to 126 following 3% sodium yesterday, 125 again this morning. With clears, will encourage sodium intake as well as begin sodium tablets 03/22 sodium 129. Continue sodium tabs and supplement drinks, fluid restriction 1500ml until further improvement/stability Status: Chronic (4) Hypothyroid: Problem comment: Resume levothyroxine Status: Chronic (5) Hypertension: Problem comment: -continue lisinopril and metoprolol when taking PO -hx of SVT/Afib and is sensitive when metoprolol is held Resume metoprolol and lisinopril Status: Chronic (6) Protein-calorie malnutrition, mild: Problem comment: - consider initiation of short-term parenteral nutrition postoperatively - has been subsiding on clear liquids or full liquids plus IV fluids for the last 2 weeks. Will discuss with general surgeon, Dr. Campbell. 03/19 - TPN has been initiated, Pharmacy and Nutrition following 03/21 - will confirm with General surgery if okay to discontinue PPN following completion of current bag while starting clears DISCONTINUED Status: Resolved Plan Discharge plan per General surgery Total Time Spent Total Time Spent: Today I spent 45 minutes seeing the patient, reviewing Expanse and EPIC notes/diagnostics, discussing the care plan with our care time that includes social work, PT/OT, pharmacy, RT, nursing home and documenting my impressions and plan in the medical record. Subjective Date Seen: 03/22/25 Interval history: Patient is seen sitting up in bed. Reports feeling better this morning. Continues to pass flatus. Ambulating multiple times throughout the day. Tolerating clears without nausea or increased pain. Feels her bloating from yesterday has improved. Exam Narrative: Exam Narrative: PHYSICAL EXAM General: Pleasant, conversant, NAD Cardiovascular: IRRR. No pitting edema Pulmonary: CTA bilaterally without rhonchi, rales, expiratory wheezes. No dyspnea Abdominal: Distention improved from yesterday, mild tenderness, surgical wound appears to be healing appropriately Neurological: Alert, answering questions appropriately, cranial nerves intact, no focal findings Extremities: No gross joint deformity or swelling. AROMI. Neurovascularly intact Skin: Warm, dry. Const: Vital Signs, click to edit/add: Vital Signs - 24 hr 03/21/25 11:08 03/21/25 15:37 03/21/25 15:37 Temperature 97.6 F 97.1 F L Pulse Rate [Right Pulse Oximeter] 68 56 L 56 L Respiratory Rate 16 16 16 Blood Pressure [Ri ght Arm] 151/67 H 165/79 H Pulse Oximetry 97 95 Oxygen Delivery Me thod Room Air Room Air 03/21/25 19:00 03/21/25 23:00 03/21/25 23:00 Temperature 98 F 97.6 F Pulse Rate [Right Pulse Oximeter] 78 69 69 Respiratory Rate 16 16 16 Blood Pressure [Ri ght Arm] 172/70 H 135/74 Pulse Oximetry 97 97 Oxygen Delivery Or thod Room Air Room Air 03/22/25 03:00 03/22/25 07:00 03/22/25 07:00 Temperature 97.4 F L 98.2 F Pulse Rate [Right Pulse Oximeter] 64 73 73 Respiratory Rate 18 18 18 Blood Pressure [Ri ght Arm] 145/83 H 142/72 H Pulse Oximetry 98 96 Oxygen Delivery Me thod Room Air Room Air Labs Labs: Laboratory Results - last 24 hr 03/22/25 06:15 WBC 6.28 RBC 3.21 L Hgb 9.7 L Hct 28.5 L MCV 89 MCH 30 MCHC 34 Plt Count 320 Sodium 129 L Potassium 4.4 Chloride 97 Carbon Dioxide 23 Anion Gap 9 BUN 23 Creatinine 0.7 Estimated Creat Clear 32.50 Estimated GFR 84 Glucose 91 Calcium 9.0
--- NOTE | 2025-03-22 10:50 | PM.GSPN ---
Subjective Subjective Date Seen: 03/22/25 Interval history: Areli feels better today. She states that she does still feel somewhat distended but much less than yesterday. She has been going slow with her diet. Denies any nausea. She has more flatus today. She states that today is quite know the best I have felt. ? She has been walking in the hallways. Exam Narrative: Exam Narrative: General: No acute distress Abdomen: Somewhat distended and protuberant, but, markedly improved per the patient and provider who has seen the patient yesterday. Incision without erythema. Hypoactive bowel sounds. Const: Vital Signs, click to edit/add: Vital Signs - 24 hr 03/21/25 11:08 03/21/25 15:37 03/21/25 15:37 Temperature 97.6 F 97.1 F L Pulse Rate [Right Pulse Oximeter] 68 56 L 56 L Respiratory Rate 16 16 16 Blood Pressure [Ri ght Arm] 151/67 H 165/79 H Pulse Oximetry 97 95 Oxygen Delivery Me thod Room Air Room Air 03/21/25 19:00 03/21/25 23:00 03/21/25 23:00 Temperature 98 F 97.6 F Pulse Rate [Right Pulse Oximeter] 78 69 69 Respiratory Rate 16 16 16 Blood Pressure [Ri ght Arm] 172/70 H 135/74 Pulse Oximetry 97 97 Oxygen Delivery Me thod Room Air Room Air 03/22/25 03:00 03/22/25 07:00 03/22/25 07:00 Temperature 97.4 F L 98.2 F Pulse Rate [Right Pulse Oximeter] 64 73 73 Respiratory Rate 18 18 18 Blood Pressure [Ri ght Arm] 145/83 H 142/72 H Pulse Oximetry 98 96 Oxygen Delivery Me thod Room Air Room Air Labs/Imaging Labs Labs: White blood cell count 6.2 Hemoglobin 9.7 which is stable from 10 Sodium 129, up from 125 Progress Note:A&P Assessment and plan (1) S/P small bowel resection: Status: Acute (2) S/P appendectomy: Status: Acute (3) Hyponatremia: Status: Chronic (4) Hypertension: Status: Chronic Plan Areli is an 89 year old female who is now postop day 4 from laparotomy, resection of small bowel with primary anastomosis and appendectomy for small bowel obstruction. She is having some return of bowel function. She feels significantly better today and is less distended. -she is going to continue to go slowly with her diet, however I think it is reasonable to advance her to full liquids. -IV fluids are on hold, hyponatremia has improved. -continue IS and ambulation. -Lovenox for DVT prophylaxis.
[2025-03-22] MEDS: PANTOPRAZOLE SODIUM 40 MG INJ IVP (16:02)
[2025-03-22] MEDS: lisinopriL 5 MG TABLET 7.5 MG PO (21:16)
[2025-03-23] VITALS (7 sets, daily range): BP systolic 152–175; BP diastolic 76–94; PULSE 74–89; RESP 12–18; TEMP 36.4–37.6; O2SAT 97–100
[2025-03-23] MEDS: diphenhydrAMINE 50 MG/ML inj 25 MG IVP (02:22)
[2025-03-23 05:55] LABS: Hematocrit* 28.7 % (33.0-51.0); Hemoglobin* 9.8 gm/dL (12.0-16.0); Mean Corpuscular HGB Conc 34 gm/dL (32-36); Mean Corpuscular Hemoglobin 30 pg (26-34); Mean Corpuscular Volume 88 fL (80-100); Platelet Count* 322 K/uL (140-440); Red Blood Count* 3.27 m/uL (4.00-5.20); White Blood Count* 6.62 K/uL (4.50-11.00)
[2025-03-23] MEDS: LEVOTHYROXINE 75 MCG TABLET PO (05:55)
[2025-03-23 05:58] LABS: Slide Review Reflex No
[2025-03-23 06:06] LABS: Chloride* 97 mmol/L (96-114); Potassium* 3.9 mmol/L (3.6-5.1); Sodium* 128 mmol/L (135-149)
[2025-03-23 06:09] LABS: Anion Gap 9 mEq/L (7-15); Blood Urea Nitrogen* 16 mg/dL (7-30); Carbon Dioxide* 22 mmol/L (20-32); Creatinine* 0.6 mg/dL (0.5-1.5); Est. Creatinine Clearance* 31.62; Estimated Glomerular Filt Rate 87 ml/min; Glucose* 95 mg/dL (60-115)
--- NOTE | 2025-03-23 06:09 | PC.NURSE ---
Pt alert, oriented and vitally stable, though hypertensive. The bowel sounds active, pt states flatus though no BM. Abdomen distended, soft and tender upon palpation. Midline dressing C/D/I, minor bruising noted towards the top of incision. Pain rated 5/10, prn Toradol given, pt stated improvement. Pt stated mild itching, requested prn Benadryl. Full liquid diet, pt states ?taking it slow?. Up independently, walking the halls. Pt in bed, appears to be resting, call light within reach.
--- NOTE | 2025-03-23 07:11 | PM.IMPN1 ---
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 no new imaging today but will after discussion with gen surg and see how she does -IVF, pain management, gen surg consult - 03/15/2025: Saline lock IV. Clear liquids as tolerated. Bisacodyl suppository. Continue with activities as tolerated. - 03/16/2025: Continue clear liquids and IV fluids with increased activities as tolerated. - 03/17/2025: I reviewed with patient my concern that her condition is relatively stagnant. Recommended attempt full liquid diet today. Discussed possibility of discharging in the next day or 2 if condition improves or remains stable verses re-consultation with general surgery if her condition does not improve or worsens. - 03/18/2025: Discussed with Dr. Campbell, general surgeon. Dr. Campbell is agreeable to see the patient in consultation and discussed possible surgical intervention with the patient as early as later today. 03/19 - POD# 1 s/p exploratory laparotomy, lysis of adhesions and small-bowel resection, Dr. Campbell. NGT to remain in place, possibly to be removed on 03/20. Following general surgery recommendations. Encourage ambulation 03/20 - POD#2. NGT has been removed. Sips and chips for now. Likely clears tomorrow. Encourage ambulation 03/21 - POD#3. Confirming with General surgery that plan is to begin clear liquid diet. Will resume home oral medications 03/22 - POD#4. Distention improving. Hgb 12.3-11.9-10-9.7, discussed with Dr. Campbell, thought to be dilutional, continue to follow. Diet advancement per General Surgery 03/23 - POD#5. Distention resolving. Hgb stable at 9.8. Tolerating full liq diet. +Flatus, no BM. Continue to ambulate, will d/w Dr. Flores, possibly advance diet further today. Status: Acute (2) H/O small bowel obstruction: Problem comment: first 2020 - (only abd surg hx was a Tubal ligation) - JOANA at [facility] 2021 - [facility]. JOANA [phone] 3 occurences; conservative tx 2024 - 3rd admisson as of 03/14/25; all conservative tx Status: Chronic (3) Hyponatremia: Problem comment: Acute on chronic -baseline NA 130's -125, will run NS without fluid restriction -sodium chloride 1 g p.o. q.i.d. - on hold while NPO 03/19 postoperatively 127, previously 128-129. Start oral sodium tabs when NGT is removed 03/20 sodium 125. Will give 3% sodium 50 mL. Recheck sodium at noon. Sips and chips - sips of Gatorade, no free water other than ice chips 03/21 sodium up to 126 following 3% sodium yesterday, 125 again this morning. With clears, will encourage sodium intake as well as begin sodium tablets 03/22 sodium 129. Continue sodium tabs and supplement drinks, fluid restriction 1500ml until further improvement/stability 03/23 sodium 128. Increase sodium tabs to 2gTID, continue nutritional supplements TID and FR 1500ml/day. Recheck in am. Status: Chronic (4) Hypothyroid: Problem comment: Continue levothyroxine @ home dose Status: Chronic (5) Hypertension: Problem comment: -continue lisinopril and metoprolol -hx of SVT/Afib and is sensitive when metoprolol is held Status: Chronic (6) Protein-calorie malnutrition, mild: Problem comment: - consider initiation of short-term parenteral nutrition postoperatively - has been subsiding on clear liquids or full liquids plus IV fluids for the last 2 weeks. Will discuss with general surgeon, Dr. Campbell. 03/19 - TPN has been initiated, Pharmacy and Nutrition following 03/21 - will confirm with General surgery if okay to discontinue PPN following completion of current bag while starting clears DISCONTINUED 03/23 - continue nutritional supplements TID Status: Resolved Subjective Time Seen by Provider: 07:45 Date Seen: 03/23/25 Interval history: Brandy is doing well. She has been ambulating frequently. She endorses flatus, but no BM yet. Denies other complaints. Exam Narrative: Exam Narrative: General: No acute distress. Awake, alert, oriented x3. No pallor. No jaundice. Oropharynx: Clear. Mucous membranes moist. Cardiovascular: Regular rate and rhythm. No murmurs, gallops, or rubs. Respiratory: Clear to auscultation bilaterally. No wheezes or crackles. Abdomen: Bowel sounds present. Soft, nondistended, surgical wound is clean, dry, intact and there is no erythema or induration. Extremities: No lower extremity edema. Const: Vital Signs, click to edit/add: Vital Signs - 24 hr 03/22/25 11:58 03/22/25 15:00 03/22/25 16:16 Temperature 97.6 F 97.9 F Pulse Rate [Right Pulse Oximeter] 68 70 70 Respiratory Rate 18 18 18 Blood Pressure [Ri ght Arm] 161/79 H 145/68 H Pulse Oximetry 97 100 Oxygen Delivery Me thod Room Air Room Air 03/22/25 19:00 03/22/25 23:00 03/22/25 23:00 Temperature 98.3 F 98.2 F Pulse Rate [Right Pulse Oximeter] 75 82 82 Respiratory Rate 18 18 18 Blood Pressure [Ri ght Arm] 127/71 166/86 H Pulse Oximetry 97 99 Oxygen Delivery Me thod Room Air Room Air 03/23/25 03:00 Temperature 97.6 F Pulse Rate [Right Pulse Oximeter] 74 Respiratory Rate 18 Blood Pressure [Ri ght Arm] 153/76 H Pulse Oximetry 97 Oxygen Delivery Me thod Room Air Labs Labs: Laboratory Results - last 24 hr 03/23/25 05:39 WBC 6.62 RBC 3.27 L Hgb 9.8 L Hct 28.7 L MCV 88 MCH 30 MCHC 34 Plt Count 322 Sodium 128 L Potassium 3.9 Chloride 97 Carbon Dioxide 22 Anion Gap 9 BUN 16 Creatinine 0.6 Estimated Creat Clear 31.62 Estimated GFR 87 Glucose 95 Calcium 9.0
[2025-03-23] MEDS: SODIUM CHLORIDE 1 GM TABLET 2 GM PO ×3 (08:29→17:40)
[2025-03-23] MEDS: METOPROLOL TARTRATE 50 MG TABLET PO ×2 (08:30→21:51)
[2025-03-23] MEDS: SODIUM CHLORIDE 0.9 % (FLUSH) 10 ML SYRINGE 5 ML IVF ×2 (09:58→21:50)
--- NOTE | 2025-03-23 11:36 | PM.GSPN ---
Subjective Subjective Date Seen: 03/23/25 Interval history: For Maddison parson continues to ambulate in halls frequently. She continues to pass a large amount of gas. She did feel a little queasy a few times in the last 24 hours but has not had significant nausea or vomiting. She does note her abdomen to be a bit more distended but she feels like she could have a bowel movement, just that it will come out. Pain is manageable at approximately 3/10. Exam Narrative: Exam Narrative: General: No acute distress Respiratory: Breathing nonlabored on room air CV: Regular rate Abdomen: More distended today than yesterday but soft and minimally tender. No erythema. Patient has active bowel sounds today. Const: Vital Signs, click to edit/add: Vital Signs - 24 hr 03/22/25 11:58 03/22/25 15:00 03/22/25 16:16 Temperature 97.6 F 97.9 F Pulse Rate [Right Pulse Oximeter] 68 70 70 Respiratory Rate 18 18 18 Blood Pressure [Ri ght Arm] 161/79 H 145/68 H Pulse Oximetry 97 100 Oxygen Delivery Me thod Room Air Room Air 03/22/25 19:00 03/22/25 23:00 03/22/25 23:00 Temperature 98.3 F 98.2 F Pulse Rate [Right Pulse Oximeter] 75 82 82 Respiratory Rate 18 18 18 Blood Pressure [Ri ght Arm] 127/71 166/86 H Pulse Oximetry 97 99 Oxygen Delivery Me thod Room Air Room Air 03/23/25 03:00 03/23/25 07:00 03/23/25 11:00 Temperature 97.6 F 99.6 F 98.1 F Pulse Rate [Right Pulse Oximeter] 74 89 80 Respiratory Rate 18 12 18 Blood Pressure [Ri ght Arm] 153/76 H 171/93 H 175/94 H Pulse Oximetry 97 99 97 Oxygen Delivery Me thod Room Air Room Air Room Air Progress Note:A&P Assessment and plan (1) S/P appendectomy: Status: Acute (2) S/P small bowel resection: Status: Acute (3) Hyponatremia: Status: Chronic (4) Hypertension: Status: Chronic Plan The patient is an 89-year-old female who is now postop day 5 status post laparotomy, resection of small bowel with primary anastomosis and appendectomy for small bowel obstruction. She is having some return of bowel function but is still fairly distended. -continue go slowly with diet. Recommend continuing with full liquids given her distension -suppository to assist with bowel movement, however would advance diet based on abdominal distension at this point. -continue fluid restriction for hyponatremia which is stable. -continue incentive spirometry and ambulation -Lovenox for DVT prophylaxis -anticipate at least 1 more day as inpatient.
[2025-03-23] MEDS: GLYCERIN SUPP (ADULT) 1 SUPP PR (11:54)
[2025-03-23] MEDS: ONDANSETRON 2 MG/ML inj 4 MG IVP (13:05)
[2025-03-23] MEDS: KETOROLAC 15 MG/ML inj IVP (15:16)
[2025-03-23] MEDS: PANTOPRAZOLE SODIUM 40 MG INJ IVP (15:26)
--- NOTE | 2025-03-23 19:02 | PC.NURSE ---
End of Shift ([id number]): Patient pleasant and cooperative, A&O. VSS, afebrile. SpO2 maintained above 90% on RA. Dressing to abdomen C/D/I. Bowel sounds are active, pt reports passing gas this shift. Pt had a small, formed BM this shift. She reports feeling nauseated this shift, managed with PRN medication, see MAR. Pt reports feeling more bloated and distended this shift. Pt is tolerating full liquid diet. Tolerating 1500FR. Independent in room. ?
[2025-03-23] MEDS: lisinopriL 5 MG TABLET 7.5 MG PO (21:51)
[2025-03-23] MEDS: LORazepam 0.5 MG TABLET PO (22:17)
[2025-03-24] MEDS: LEVOTHYROXINE 75 MCG TABLET PO (06:06)
[2025-03-24 06:11] VITALS: BP 156/81; PULSE 75; RESP 18; O2SAT 97
--- NOTE | 2025-03-24 06:34 | PC.NURSE ---
END OF SHIFT: Pt alert, oriented and vitally stable, though hypertensive. The bowel sounds active, pt states flatus. Abdomen distended, soft and tender upon palpation. Midline dressing C/D/I, minor bruising noted towards the top of incision. Saline lock discontinued. Pain rated 5/10, prn Toradol given, pt stated improvement. Pt had mild anxiety and trouble sleeping, prn Ativan given. Full liquid diet, allowed mashed potatoes, pt tolerated well. Pt had a small BM this morning, stated feeling less bloated and ?backed up.? Up independently, walking the halls. Pt in bed, appears to be resting, call light within reach.?
[2025-03-24 07:00] VITALS: BP 162/91; PULSE 88; RESP 12; TEMP 37.3; O2SAT 100
[2025-03-24] MEDS: METOPROLOL TARTRATE 50 MG TABLET PO ×2 (08:04→21:53)
[2025-03-24] MEDS: SODIUM CHLORIDE 1 GM TABLET 2 GM PO ×2 (08:04→18:56)
[2025-03-24] MEDS: ONDANSETRON ODT 4 MG TAB PO ×2 (08:32→15:36)
[2025-03-24 08:55] LABS: Chloride* 95 mmol/L (96-114); Sodium* 129 mmol/L (135-149)
[2025-03-24 08:58] LABS: Anion Gap 9 mEq/L (7-15); Blood Urea Nitrogen* 13 mg/dL (7-30); Carbon Dioxide* 25 mmol/L (20-32); Creatinine* 0.7 mg/dL (0.5-1.5); Est. Creatinine Clearance* 31.16; Estimated Glomerular Filt Rate 84 ml/min
[2025-03-24 08:59] LABS: Calcium* 9.9 mg/dL (8.4-10.6); Glucose* 143 mg/dL (60-115)
--- NOTE | 2025-03-24 09:06 | P.IMPN_ITS ---
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 no new imaging today but will after discussion with gen surg and see how she does -IVF, pain management, gen surg consult - 03/15/2025: Saline lock IV. Clear liquids as tolerated. Bisacodyl suppository. Continue with activities as tolerated. - 03/16/2025: Continue clear liquids and IV fluids with increased activities as tolerated. - 03/17/2025: I reviewed with patient my concern that her condition is relatively stagnant. Recommended attempt full liquid diet today. Discussed possibility of discharging in the next day or 2 if condition improves or remains stable verses re-consultation with general surgery if her condition does not improve or worsens. - 03/18/2025: Discussed with Dr. Campbell, general surgeon. Dr. Campbell is agreeable to see the patient in consultation and discussed possible surgical intervention with the patient as early as later today. 03/19 - POD# 1 s/p exploratory laparotomy, lysis of adhesions and small-bowel resection, Dr. Campbell. NGT to remain in place, possibly to be removed on 03/20. Following general surgery recommendations. Encourage ambulation 03/20 - POD#2. NGT has been removed. Sips and chips for now. Likely clears tomorrow. Encourage ambulation 03/21 - POD#3. Confirming with General surgery that plan is to begin clear liquid diet. Will resume home oral medications 03/22 - POD#4. Distention improving. Hgb 12.3-11.9-10-9.7, discussed with Dr. Campbell, thought to be dilutional, continue to follow. Diet advancement per General Surgery 03/23 - POD#5. Distention resolving. Hgb stable at 9.8. Tolerating full liq diet. +Flatus, no BM. Continue to ambulate, will d/w Dr. Flores, possibly advance diet further today. 03/24 - POD#6. Worsening distention and nausea. Not tolerating full liquids this morning. I spoke with Dr. Flores, who will come see her today. For now I have ordered NPO and for the IV to be replaced. I will start maintenance IVF; we may need to consider PPN or TPN. Status: Acute (2) H/O small bowel obstruction: Problem comment: first 2020 - (only abd surg hx was a Tubal ligation) - JOANA at [facility] 2021 - [facility]. JOANA [phone] 3 occurences; conservative tx 2024 - 3rd admisson as of 03/14/25; all conservative tx Status: Chronic (3) Hyponatremia: Problem comment: Acute on chronic -baseline NA 130's -125, will run NS without fluid restriction -sodium chloride 1 g p.o. q.i.d. - on hold while NPO 03/19 postoperatively 127, previously 128-129. Start oral sodium tabs when NGT is removed 03/20 sodium 125. Will give 3% sodium 50 mL. Recheck sodium at noon. Sips and chips - sips of Gatorade, no free water other than ice chips 03/21 sodium up to 126 following 3% sodium yesterday, 125 again this morning. With clears, will encourage sodium intake as well as begin sodium tablets 03/22 sodium 129. Continue sodium tabs and supplement drinks, fluid restriction 1500ml until further improvement/stability 03/23 sodium 128. Increase sodium tabs to 2g TID, continue nutritional supplements TID and FR 1500ml/day. Recheck in am. 03/24 sodium 129. Likely this has been difficult to increase due to poor nutritional intake. Salt tabs can also cause nausea, and I increased the dose yesterday. I will try holding salt tabs, starting saline IVF, and monitoring sodium more closely. May need to consider PPN or TPN. Status: Chronic (4) Hypothyroid: Problem comment: Continue levothyroxine @ home dose Status: Chronic (5) Hypertension: Problem comment: -continue lisinopril and metoprolol -hx of SVT/Afib and is sensitive when metoprolol is held Status: Chronic (6) Protein-calorie malnutrition, mild: Problem comment: - consider initiation of short-term parenteral nutrition postoperatively - has been subsiding on clear liquids or full liquids plus IV fluids for the last 2 weeks. Will discuss with general surgeon, Dr. Campbell. 03/19 - TPN has been initiated, Pharmacy and Nutrition following 03/21 - will confirm with General surgery if okay to discontinue PPN following completion of current bag while starting clears DISCONTINUED 03/23 - continue nutritional supplements TID 03/24 - has been unable to take nutritional supplements due to nausea; may need to consider PPN or TPN until taking better PO, will d/w surgery Status: Resolved Subjective Time Seen by Provider: 07:50 Date Seen: 03/24/25 Interval history: Brandy initially endorsed feeling a softer abdomen this morning; a little diffuse discomfort, which has never really gone away; denied nausea. She asked me about her sodium level. Staff reports that although she is on a full liquid diet, she has been eating mostly a clear liquid diet with only a bite or two of fulls. About 45 minutes later, I was walking by her room and heard coughing and retching. I went to her room and saw that she had uneaten breakfast in front of her, she was nauseous, and retching. I got her an emesis bag. She did not have emesis. She had only taken a bite of fulls and felt more bloated and nauseous. Exam Narrative: Exam Narrative: General: No acute distress. Awake, alert, oriented. No pallor. No jaundice. Oropharynx: Clear. Mucous membranes moist. Cardiovascular: Regular rate and rhythm. No murmurs, gallops, or rubs. Respiratory: Clear to auscultation bilaterally. No wheezes or crackles. Abdomen: Bowel sounds present. Soft, more distended than yesterday. Const: Vital Signs, click to edit/add: Vital Signs - 24 hr 03/23/25 11:00 03/23/25 15:00 03/23/25 15:00 Temperature 98.1 F 99.0 F Pulse Rate [Right Pulse Oximeter] 80 79 79 Respiratory Rate 18 18 18 Blood Pressure [Ri ght Arm] 175/94 H 171/92 H Pulse Oximetry 97 98 Oxygen Delivery Me thod Room Air Room Air 03/23/25 19:00 03/23/25 22:08 03/23/25 23:00 Temperature 98.6 F 97.8 F Pulse Rate [Right Pulse Oximeter] 75 80 80 Respiratory Rate 16 18 18 Blood Pressure [Ri ght Arm] 152/84 H 162/85 H Pulse Oximetry 100 98 Oxygen Delivery Me thod Room Air Room Air 03/24/25 06:11 03/24/25 07:00 03/24/25 07:00 Temperature 99.1 F Pulse Rate [Right Pulse Oximeter] 75 88 88 Respiratory Rate 18 12 12 Blood Pressure [Ri ght Arm] 156/81 H 162/91 H Pulse Oximetry 97 100 Oxygen Delivery Me thod Room Air Labs Labs: Laboratory Results - last 24 hr 03/24/25 08:32 Sodium 129 L Potassium 4.0 Chloride 95 L Carbon Dioxide 25 Anion Gap 9 BUN 13 Creatinine 0.7 Estimated Creat Clear 31.16 Estimated GFR 84 Glucose 143 H Calcium 9.9
[2025-03-24 11:00] VITALS: BP 161/92; PULSE 74; RESP 14; TEMP 36.3; O2SAT 100
--- NOTE | 2025-03-24 12:28 | PM.GSPN ---
Subjective Subjective Date Seen: 03/24/25 Interval history: Delvin had nausea this morning after having soup and V8. However, she then had 2 bowel movements and her symptoms have resolved. He feels much more comfortable now. Exam Narrative: Exam Narrative: General: No acute distress CV regular rate and rhythm Respiratory: Clear to auscultation bilaterally Abdomen: Soft, nondistended. Nontender. Active bowel sounds. Const: Vital Signs, click to edit/add: Vital Signs - 24 hr 03/23/25 15:00 03/23/25 15:00 03/23/25 19:00 Temperature 99.0 F 98.6 F Pulse Rate [Right Pulse Oximeter] 79 79 75 Respiratory Rate 18 18 16 Blood Pressure [Ri ght Arm] 171/92 H 152/84 H Pulse Oximetry 98 100 Oxygen Delivery Me thod Room Air Room Air 03/23/25 22:08 03/23/25 23:00 03/24/25 06:11 Temperature 97.8 F Pulse Rate [Right Pulse Oximeter] 80 80 75 Respiratory Rate 18 18 18 Blood Pressure [Ri ght Arm] 162/85 H 156/81 H Pulse Oximetry 98 97 Oxygen Delivery Me thod Room Air 03/24/25 07:00 03/24/25 07:00 03/24/25 11:00 Temperature 99.1 F 97.3 F L Pulse Rate [Right Pulse Oximeter] 88 88 74 Respiratory Rate 12 12 14 Blood Pressure [Ri ght Arm] 162/91 H 161/92 H Pulse Oximetry 100 100 Oxygen Delivery Me thod Room Air Room Air Labs/Imaging Labs Labs: Sodium today 129. Progress Note:A&P Assessment and plan (1) S/P appendectomy: Status: Acute (2) S/P small bowel resection: Status: Acute (3) Hypertension: Status: Chronic (4) Hyponatremia: Status: Chronic Plan The patient is an 89-year-old female postop day 6 from exploratory laparotomy and small-bowel resection for small-bowel obstruction. She has had slow return of bowel function, however today she looks great. She has now moved her bowels x2 in her abdomen is soft and flat. -recommend regular diet. -hyponatremia management per hospitalist. -continue incentive spirometry and ambulation. -Lovenox for DVT prophylaxis -anticipate discharge home tomorrow.
[2025-03-24 15:00] VITALS: BP 135/80; PULSE 92; RESP 14; TEMP 37.5; O2SAT 100
[2025-03-24] MEDS: PANTOPRAZOLE SODIUM 40 MG INJ IVP (15:35)
[2025-03-24 19:00] VITALS: BP 161/84; PULSE 94; RESP 16; TEMP 37.2; O2SAT 97
--- NOTE | 2025-03-24 19:24 | PC.NURSE ---
Patient ambulating in halls frequently .Patient is tolerating regular diet and plans to discharge 03/25/2025.
[2025-03-24] MEDS: lisinopriL 5 MG TABLET 7.5 MG PO (21:53)
[2025-03-24] MEDS: IBUPROFEN 400 MG TABLET PO (21:54)
[2025-03-24] MEDS: SODIUM CHLORIDE 0.9 % (FLUSH) 10 ML SYRINGE 5 ML IVF (21:54)
[2025-03-24] MEDS: LORazepam 0.5 MG TABLET PO (21:54)
[2025-03-24 23:00] VITALS: BP 174/78; PULSE 87; RESP 18; TEMP 36.8; O2SAT 95
[2025-03-25 03:00] VITALS: RESP 16
[2025-03-25] MEDS: LEVOTHYROXINE 75 MCG TABLET PO (05:32)
--- NOTE | 2025-03-25 06:35 | PC.NURSE ---
Pt alert, oriented and vitally stable, though hypertensive. The bowel sounds active, pt states flatus. Abdomen distended, soft upon palpation. Midline dressing C/D/I, minor bruising noted towards the top of incision. Saline lock discontinued. Pain rated 5/10, prn Toradol given, pt stated improvement. Pt had mild anxiety and trouble sleeping, prn Ativan given. Regular diet, taking slow to build tolerance. Up independently, walking the halls. Pt in bed, appears to be resting, call light within reach.?
[2025-03-25 06:59] LABS: Chloride* 98 mmol/L (96-114)
[2025-03-25 07:00] VITALS: BP 121/90; PULSE 81; PULSE 87; RESP 16; RESP 18; TEMP 37.2; O2SAT 96
[2025-03-25 07:00] LABS: Sodium* 129 mmol/L (135-149)
[2025-03-25 07:02] LABS: Blood Urea Nitrogen* 14 mg/dL (7-30); Creatinine* 0.7 mg/dL (0.5-1.5); Est. Creatinine Clearance* 31.13; Estimated Glomerular Filt Rate 84 ml/min
[2025-03-25 07:03] LABS: Anion Gap 6 mEq/L (7-15); Calcium* 9.2 mg/dL (8.4-10.6); Carbon Dioxide* 25 mmol/L (20-32); Glucose* 99 mg/dL (60-115)
[2025-03-25] MEDS: SODIUM CHLORIDE 0.9 % (FLUSH) 10 ML SYRINGE 5 ML IVF (08:41)
[2025-03-25] MEDS: SODIUM CHLORIDE 1 GM TABLET 2 GM PO ×2 (08:41→12:38)
[2025-03-25] MEDS: METOPROLOL TARTRATE 50 MG TABLET PO (08:41)
--- NOTE | 2025-03-25 09:27 | PM.DS1 ---
DS: Providers Provider Date Seen: 03/25/25 Date of admission: 03/14/25 11:11 Primary care physician: Akila Cerda MD Admitting Clinician: Carolyn Canchola MD Consults: 03/14/25 11:11 Consult to Nutrition [CONS] Routine Comment: Reason for consult:: Miscellaneous Attending Physician on discharge: Carolyn Canchola MD DS: Summary Hospital Course Hospital Course: Per Dr. Campbell: Patient was admitted to the hospital with a small-bowel obstruction. She has a history of recurrent small-bowel obstructions with this being her 3rd hospitalization in 1 month. She was taken to the operating room for an exploratory laparotomy. There she had lysis of adhesions and small-bowel resection, as well as an incidental appendectomy. Postoperatively she received a short course the TPN for nutrition. Her Menjivar was removed postop day 1. She had an NG tube that was removed postop day 2. She did have slow return of bowel function. Her diet was advanced to regular and TPN tapered off. At the time of discharge patient was tolerating a regular diet. Had return of bowel function with multiple bowel movements. Was ambulating without difficulty. Pain was well controlled. Per Dr. Varela: See diagnoses above for further details. Time Spent with Patient Time attestation: Total time spent providing and/or coordinating discharge services: Exam Narrative: Exam Narrative: General: Alert and oriented, no acute distress Abdomen: Soft, nontender and nondistended. Steri-Strips in place clean/dry/intact. Const: Vital Signs, click to edit/add: Vital Signs - 24 hr 03/24/25 11:00 03/24/25 15:00 03/24/25 15:00 Temperature 97.3 F L 99.5 F Pulse Rate [Right Pulse Oximeter] 74 92 92 Respiratory Rate 14 14 14 Blood Pressure [Ri ght Arm] 161/92 H 135/80 Pulse Oximetry 100 100 Oxygen Delivery Me thod Room Air Room Air 03/24/25 19:00 03/24/25 23:00 03/24/25 23:00 Temperature 98.9 F 98.2 F Pulse Rate [Right Pulse Oximeter] 94 87 87 Respiratory Rate 16 18 18 Blood Pressure [Ri ght Arm] 161/84 H 174/78 H Pulse Oximetry 97 95 Oxygen Delivery Me thod Room Air 03/25/25 03:00 03/25/25 07:00 Temperature 99.0 F Pulse Rate [Right Pulse Oximeter] 87 Respiratory Rate 16 16 Blood Pressure [Ri ght Arm] 121/90 H Pulse Oximetry 96 Oxygen Delivery Al thod Room Air DS: Data Data Completed and Pending Completed studies during hospitalization: Procedures Drainage of Stomach with Drainage Device, Via Natural or Artificial Opening (11/06/24) Insertion of Infusion Device into Stomach, Via Natural or Artificial Opening (02/12/25) Labs on day of discharge: Labs from last 24 hours 03/25/25 06:17 Sodium 129 L Potassium 4.0 Chloride 98 Carbon Dioxide 25 Anion Gap 6 L BUN 14 Creatinine 0.7 Estimated Creat Clear 31.13 Estimated GFR 84 Glucose 99 Calcium 9.2 Discharge Plan Discharge Disposition: Home, Self-Care Date of Admission: 03/14/25 11:11 Attending Provider on Discharge: Nay Campbell Primary Care Provider: Akila Cerda Condition: Improved Anticipated Discharge Date/Time: 03/25/25 08:59 Discharge Medications: New ondansetron 4 mg tablet,disintegrating 4 mg PO Q6H Qty: 20 0RF sodium chloride 1,000 mg Tablet,Soluble 2,000 mg PO TIDWM Qty: 120 0RF Continued omega [id number] oil [Fish Oil] 60-90-500 mg capsule 1 cap PO BID levothyroxine 75 mcg tablet 75 mcg PO DAILY metoprolol tartrate 50 mg tablet 50 mg PO BID lisinopril 5 mg tablet 7.5 mg PO HS cetirizine 10 mg tablet 10 mg PO HS multivitamin Tablet 1 tab PO DAILY acetaminophen 500 mg capsule 500 - 1,000 mg PO Q6H MDD 3000mg PRN calcium carbonate-vitamin D3 [Calcium 500 + D] 500 mg-5 mcg (200 unit) tablet 1 tab PO DAILY naproxen sodium 220 mg tablet 220 mg PO DAILY Ocutabs Tablet 1 tab PO DAILY Mag Glycinate 100 mg tablet 200 mg PO QHS cyclobenzaprine 10 mg tablet 10 mg PO TID PRN melatonin 3 mg Tablet 3 mg PO HS PRN30 Days Qty: 30 0RF Discharge Orders: Discharge Order (Routine); Ordered 03/25/25 Ordered By: Kathie Varela Patient Education: Ondansetron (By mouth), Sodium Chloride (By mouth), Bowel Obstruction (DC), Bowel Resection (DC) Activity Level: No strenuous activity Activity Detail: NO lifting > 20 lbs for 6 weeks Discharge Diet: Regular Follow Up Appointments: Juan R Tuttle [Other] - 03/27/25 8:30 am (for hearing aid replacement ) Akila Cerda MD [Primary Care Provider] - 04/01/25 11:15 am (PCP gone all next week so she will be seeing Dr. Valencia.) Nay Campbell MD [Staff Physician] - 04/03/25 8:15 am () Forms: [facility] Info Instructions
--- NOTE | 2025-03-25 10:04 | P.DS_ITS ---
DS: Providers Provider Time Seen by Provider: 09: Date Seen: 03/25/25 Date of admission: 03/14/25 11:11 Primary care physician: Akila Cerda MD Admitting Clinician: Carolyn Canchola MD Consults: 03/14/25 11:11 Consult to Nutrition [CONS] Routine Comment: Reason for consult:: Miscellaneous Attending Physician on discharge: Kathie Varela MD Date of Discharge: 03/25/25 DS: Diagnosis Discharge Diagnosis (1) Partial small bowel obstruction: Status: Acute Problem details: -third occurrence this year (admitted to [facility] 02/11, 02/19, 03/14) -recurrent, 8th occurrence since 2020, requiring 2 previous surgeries -no evidence of infection/ischemia. no new imaging today but will after discussion with gen surg and see how she does -IVF, pain management, gen surg consult - 03/15/2025: Saline lock IV. Clear liquids as tolerated. Bisacodyl suppository. Continue with activities as tolerated. - 03/16/2025: Continue clear liquids and IV fluids with increased activities as tolerated. - 03/17/2025: I reviewed with patient my concern that her condition is relatively stagnant. Recommended attempt full liquid diet today. Discussed possibility of discharging in the next day or 2 if condition improves or remains stable verses re-consultation with general surgery if her condition does not improve or worsens. - 03/18/2025: Discussed with Dr. Campbell, general surgeon. Dr. Campbell is agreeable to see the patient in consultation and discussed possible surgical intervention with the patient as early as later today. 03/19 - POD# 1 s/p exploratory laparotomy, lysis of adhesions and small-bowel resection, Dr. Campbell. NGT to remain in place, possibly to be removed on 03/20. Following general surgery recommendations. Encourage ambulation 03/20 - POD#2. NGT has been removed. Sips and chips for now. Likely clears tomorrow. Encourage ambulation 03/21 - POD#3. Confirming with General surgery that plan is to begin clear liquid diet. Will resume home oral medications 03/22 - POD#4. Distention improving. Hgb 12.3-11.9-10-9.7, discussed with Dr. Campbell, thought to be dilutional, continue to follow. Diet advancement per General Surgery 03/23 - POD#5. Distention resolving. Hgb stable at 9.8. Tolerating full liq diet. +Flatus, no BM. Continue to ambulate, will d/w Dr. Flores, possibly advance diet further today. 03/24 - POD#6. Worsening distention and nausea. Not tolerating full liquids this morning. I spoke with Dr. Flores, who will come see her today. For now I have ordered NPO and for the IV to be replaced. I will start maintenance IVF; we may need to consider PPN or TPN. 03/25 - POD#7. Had large BM yesterday. Feels better and tolerating regular diet now. General surgery okay with discharged to home today. (2) H/O small bowel obstruction: Status: Chronic Problem details: first 2020 - (only abd surg hx was a Tubal ligation) - JOANA at [facility] 2021 - [facility]. JOANA [id number] 3 occurences; conservative tx 2024 - 3rd admisson as of 03/14/25; all conservative tx (3) Hyponatremia: Status: Chronic Problem details: Acute on chronic -baseline NA 130's -125, will run NS without fluid restriction -sodium chloride 1 g p.o. q.i.d. - on hold while NPO 03/19 postoperatively 127, previously 128-129. Start oral sodium tabs when NGT is removed 03/20 sodium 125. Will give 3% sodium 50 mL. Recheck sodium at noon. Sips and chips - sips of Gatorade, no free water other than ice chips 03/21 sodium up to 126 following 3% sodium yesterday, 125 again this morning. With clears, will encourage sodium intake as well as begin sodium tablets 03/22 sodium 129. Continue sodium tabs and supplement drinks, fluid restriction 1500ml until further improvement/stability 03/23 sodium 128. Increase sodium tabs to 2g TID, continue nutritional supplements TID and FR 1500ml/day. Recheck in am. 03/24 sodium 129. Likely this has been difficult to increase due to poor nutritional intake. Salt tabs can also cause nausea, and I increased the dose yesterday. I will try holding salt tabs, starting saline IVF, and monitoring sodium more closely. May need to consider PPN or TPN. 03/25 sodium stable at 129. Patient's appetite has improved and she is now tolerating a regular diet. I spoke with her about the importance of good nutrition, adequate protein and calories in her diet. Since she is now tolerating a regular diet and able to get more protein in her diet, I think it will be okay for her to come off the fluid restriction for discharge and continue with the salt tabs, follow-up with her primary care provider in 5-7 days for recheck. (4) Hypothyroid: Status: Chronic Problem details: Continue levothyroxine @ home dose (5) Hypertension: Status: Chronic Problem details: -continue lisinopril and metoprolol -hx of SVT/Afib and is sensitive when metoprolol is held (6) Protein-calorie malnutrition, mild: Status: Resolved Problem details: - consider initiation of short-term parenteral nutrition postoperatively - has been subsiding on clear liquids or full liquids plus IV fluids for the last 2 weeks. Will discuss with general surgeon, Dr. Campbell. 03/19 - TPN has been initiated, Pharmacy and Nutrition following 03/21 - will confirm with General surgery if okay to discontinue PPN following completion of current bag while starting clears DISCONTINUED 03/23 - continue nutritional supplements TID 03/24 - has been unable to take nutritional supplements due to nausea; may need to consider PPN or TPN until taking better PO, will d/w surgery 03/25 - discussed nutritional supplementation the patient now able to take that. I have asked her to use [place] instant breakfast, boost, or insure 2-3 times a day to increase protein intake. DS: Summary Hospital Course Hospital Course: Per Dr. Campbell: Patient was admitted to the hospital with a small-bowel obstruction. She has a history of recurrent small-bowel obstructions with this being her 3rd hospitalization in 1 month. She was taken to the operating room for an exp loratory laparotomy. There she had lysis of adhesions and small-bowel resection, as well as an incidental appendectomy. Postoperatively she received a short course the TPN for nutrition. Her Menjivar was removed postop day 1. She had an NG tube that was removed postop day 2. She did have slow return of bowel function. Her diet was advanced to regular and TPN tapered off. At the time of discharge patient was tolerating a regular diet. Had return of bowel function with multiple bowel movements. Was ambulating without difficulty. Pain was well controlled. Per Dr. Varela: See diagnoses above for further details. Time Spent with Patient Time attestation: Total time spent providing and/or coordinating discharge services: Today I spent 35 minutes discharging the patient, reviewing [facility] and [facility] notes/diagnostics/labs, discussing the care plan with our care team that includes social work, PT/OT, pharmacy, RT, senior living and documenting my impressions and plan in the medical record. Exam Narrative: Exam Narrative: General: No acute distress. Awake, alert, oriented. No pallor. No jaundice. Oropharynx: Clear. Mucous membranes moist. Cardiovascular: Regular rate and rhythm. No murmurs, gallops, or rubs. Respiratory: Clear to auscultation bilaterally. No wheezes or crackles. Abdomen: Bowel sounds present. Soft, less distended, nontender to palpation, incision clean, dry, and intact. Const: Vital Signs, click to edit/add: Vital Signs - 24 hr 03/24/25 11:00 03/24/25 15:00 03/24/25 15:00 Temperature 97.3 F L 99.5 F Pulse Rate [Right Pulse Oximeter] 74 92 92 Respiratory Rate 14 14 14 Blood Pressure [Ri ght Arm] 161/92 H 135/80 Pulse Oximetry 100 100 Oxygen Delivery Me thod Room Air Room Air 03/24/25 19:00 03/24/25 23:00 03/24/25 23:00 Temperature 98.9 F 98.2 F Pulse Rate [Right Pulse Oximeter] 94 87 87 Respiratory Rate 16 18 18 Blood Pressure [Ri ght Arm] 161/84 H 174/78 H Pulse Oximetry 97 95 Oxygen Delivery Me thod Room Air 03/25/25 03:00 03/25/25 07:00 Temperature 99.0 F Pulse Rate [Right Pulse Oximeter] 87 Respiratory Rate 16 16 Blood Pressure [Ri ght Arm] 121/90 H Pulse Oximetry 96 Oxygen Delivery Me thod Room Air DS: Data Data Completed and Pending Completed studies during hospitalization: Ordering Physician: Callie Sanchez M.D. Date of Service: 03/19/25 Procedure(s): XR abdomen 1V Accession Number(s): [id number] cc: Callie Sanchez M.D.; Akila Cerda M.D.~ For Patients: As a result of the 21st Century Cures Act, medical imaging exams and procedure reports are released immediately into your electronic medical record. You may view this report before your referring provider. If you have questions, please contact your health care provider. Indication: NG tube. Technique: Abdomen 1 view. Comparison: March 17, 2020. Findings/Impression: Bowel: Few loops of dilated bowel. Moderate colonic stool burden. Subdiaphragmatic enteric tube with tip in the stomach but proximal port in the lower esophagus. Recommend adjustment. Soft tissues: No sign of free air. No sign of soft tissue mass. No suspicious calcifications. Bones: Unremarkable for age. Dictated by Jose Cannon MD @ 03/19/2025 10:01:11 PM (Electronically Signed) Labs on day of discharge: Labs from last 24 hours 03/25/25 06:17 Sodium 129 L Potassium 4.0 Chloride 98 Carbon Dioxide 25 Anion Gap 6 L BUN 14 Creatinine 0.7 Estimated Creat Clear 31.13 Estimated GFR 84 Glucose 99 Calcium 9.2 Discharge Plan Discharge Disposition: Home, Self-Care Date of Admission: 03/14/25 11:11 Attending Provider on Discharge: Nay Campbell Primary Care Provider: Akila Cerda Condition: Improved Anticipated Discharge Date/Time: 03/25/25 08:59 Discharge Medications: New ondansetron 4 mg tablet,disintegrating 4 mg PO Q6H Qty: 20 0RF sodium chloride 1,000 mg Tablet,Soluble 2,000 mg PO TIDWM Qty: 120 0RF Continued omega 7-yxm-lga-fish oil [Fish Oil] 60-90-500 mg capsule 1 cap PO BID levothyroxine 75 mcg tablet 75 mcg PO DAILY metoprolol tartrate 50 mg tablet 50 mg PO BID lisinopril 5 mg tablet 7.5 mg PO HS cetirizine 10 mg tablet 10 mg PO HS multivitamin Tablet 1 tab PO DAILY acetaminophen 500 mg capsule 500 - 1,000 mg PO Q6H MDD 3000mg PRN calcium carbonate-vitamin D3 [Calcium 500 + D] 500 mg-5 mcg (200 unit) tablet 1 tab PO DAILY naproxen sodium 220 mg tablet 220 mg PO DAILY Ocutabs Tablet 1 tab PO DAILY Mag Glycinate 100 mg tablet 200 mg PO QHS cyclobenzaprine 10 mg tablet 10 mg PO TID PRN melatonin 3 mg Tablet 3 mg PO HS PRN30 Days Qty: 30 0RF Discharge Orders: Discharge Order (Routine); Ordered 03/25/25 Ordered By: Kathie Varela Activity Level: No strenuous activity Activity Detail: NO lifting > 20 lbs for 6 weeks Discharge Diet: Regular Follow Up Appointments: Akila Cerda MD [Primary Care Provider] - (5-7 days with BMP for hypo natremia) Nay Campbell MD [Staff Physician] - (1 week post hospitalization) Forms: [facility] Info Instructions
[2025-03-25 11:00] VITALS: BP 135/89; PULSE 81; RESP 18; O2SAT 100
--- NOTE | 2025-03-25 14:38 | PC.NURSE ---
Discharge-- Very pleasant and cooperative, alert and oriented patient discharged to home ambulatory with daughter and at approximately 1400. VSS and pt is afebrile. SPO2 maintained >90% on RA. She denied any pain, but did c/o some mild bloating that appears to be well managed. Incision along midline of abdomen is OPERATOR CAVITY PUMP with steri strips intact, well approximated and appears to be healing well. Pt remains mildly distended, but soft and non-tender. BS+ x4 and pt had a few small rosi of BM today. She denied nausea and tolerated a regular diet without difficulty. LS CTA. She ambulated in hallway and to BR independently and tolerated it well. Discharge education is provided including diagnosis info, symptoms to report, medications and follow up plan. SL was removed with tip intact. No further questions asked.
== END 2025-03-25 14:02 | disposition home or self-care (01) | DRG 330 ==
LOC: ED 09:15 → MEDSURG 10:36
PROVIDERS: Family Medicine; Internal Medicine; Physician Assistant; Surgery; Admitting Provider Family Medicine; Emergency Provider Family Medicine; PCP Family Medicine; Visit Provider Family Medicine
DX: K56.51 Intestinal adhesions [bands], with partial obstruction (principal); E44.1 Mild protein-calorie malnutrition; E87.1 Hypo-osmolality and hyponatremia; Z68.1 Body mass index [BMI] 19.9 or less, adult; E03.9 Hypothyroidism, unspecified; I10 Essential (primary) hypertension; Z87.19 Personal history of other diseases of the digestive system; G89.18 Other acute postprocedural pain; Z96.651 Presence of right artificial knee joint; Z96.652 Presence of left artificial knee joint; Z96.612 Presence of left artificial shoulder joint; K21.9 Gastro-esophageal reflux disease without esophagitis
CPT/HCPCS: 00790; 36415; 64488; 74018; 76942; 80048; 80053; 80076; 82962; 83605; 83735; 84100; 84295; 85025; 85027; 86140; 88307; 99100; 99284; 99285; A4314; A9270; B4185; B4189; J0131; J0330; J0665; J0666; J1100; J1171; J1200; J1650; J1885; J2270; J2405; J2470; J2543; J2704; J3010; J3475; J3490; J7030; J7131

== ENCOUNTER 2025-07-16 12:29 | Inpatient (IN) | payer MEDICARE, BC, SELFPAY ==
[2025-07-16] VITALS (12 sets, daily range): BP systolic 146–198; BP diastolic 77–122; PULSE 89–103; RESP 16–20; TEMP 36.3–36.4; O2SAT 89–96; BMI 20.8
--- OUTSIDE RECORDS SUMMARY | 2025-07-16 12:31 | XMS_ITS | Clinical Summary ---
Author Organization [facility] Address [address] [place] [id number] Care Team Providers Care Employment Services Director Name Role Phone Kathleen Gorman MD Unavailable Unavailable Janay Garcia Magda Unavailable [phone] Akila Cerda MD Primary Care Prov ider Allergies Active Allergy Reactions Criticality Noted Date Comments Cats (Fur, Dander, Saliva) Wheezing 04/27/2018 Unlisted Allergen (Include Detail In Comments) Other - Describe In Comment Field 04/03/2025 Perfumes-sneezing Medications multivitamin (MVI) tablet Take 1 tablet [...] 08/13/20 13 Active cetirizine (ZYRTEC) 10 mg tabletIndications: Environmental allergies Take 1 tablet by mouth once daily. 90 tablet 3 07/28/20 18 Active melatonin 5 mg capsule Take 1 Capsule (5 mg) by mouth at bedtime. 0 08/18/20 21 Active vit C-vit T-kiukyn-lkakauyy- omega (OCUVITE) 250-5-1 mg Take 1 Capsule by mouth once daily. 0 07/26/20 Active naproxen (ALEVE) 220 mg tablet Take 2 Tablets (440 mg) by mouth once daily. 0 07/26/20 23 Active levothyroxine (SYNTHROID) 75 mcg tabletIndications: Acquired hypothyroidism Take 1 Tablet (75 mcg) by mouth before breakfast. HOLD until patient calls 90 Tablet 3 12/13/19 25 Active metoprolol tartrate (LOPRESSOR) 50 mg tabletIndications: Atrial fibrillation, unspecified type (HC) Take 1 Tablet (50 mg) by mouth two times daily. HOLD until patient calls 180 Tablet 3 12/13/19 25 Active cyclobenzaprine (FLEXERIL) 10 mg tabletIndications: Back pain without radiation Take 1 Tablet (10 mg) by mouth 3 times daily if needed for Muscle Spasm. 20 Tablet 1 01/23/20 25 Active MAGNESIUM GLYCINATE ORAL Take by mouth. Active lisinopriL 5 mg tabletIndications: HTN (hypertension) Take 1.5 Tablets (7.5 mg) by mouth once daily. HOLD until patient calls 145 Tablet 3 03/12/20 25 Active sodium chloride 1,000 mg soluble tablet Take 1,000 mg by mouth once daily. 03/25/20 25 Active ondansetron [address] 4 mg on the tongue every 8 hours if needed. 03/25/20 25 Active Active Problems Problem Noted Date Diagnosed Date History of atrial fibrillation 04/01/2025 Overview (04/01/2025): . Converted spontaneously within about 1-2 hrs. History of small bowel obstruction 01/23/2025 Chronic hyponatremia 11/15/2023 History of reverse total rep lacement of [...] 09/07/2021 Overview (09/07/2021): [facility] on [facility] at [facility] 07/21/21 T10, T11, L1 on [...] Problem Noted Date Diagnosed Date Resolved Date Anemia 11/14/2023 03/29/2025 Routine adult health maintenance 08/24/2016 11/14/2023 Overview (08/24/2016): Colonoscopy 07/2016 diverticuli, no follow up needed Atrial fibrillation 06/13/2013 04/20/20 22 Overview (07/31/2014): Brief episode. No current problems. Skin lesion of face 05/23/2013 07/31/20 14 Encounters Date Type Department Care Team Description 05/01/2025 1:15 PM CDT Orders Only [facility] [address] [place] [address] Lab, [place] [facility] 05/01/2025 Travel from Last 3 Months Immunizations Immunization [...] (Age >=3 Years) 03/16/2010 Influenza, High-dose Inactivated 08/20/2016,01/2014 Influenza, IIV3 (Age 6-35 mos) 09/22/2011 Influenza, [...] drink = 0.6 oz pur e alcohol) 2-3 glasses a week PHQ-2 Answer Date Recorded PHQ-2 TOTAL SCORE [...] on file Legal Sex Female 6:18 AM SEXUAL HEALTH PHYSICIAN Gender Identity Not on file Sexual [...] Sign Reading Time Taken Comments Blood Pressure 147/67 04/03/2025 8:15 AM CDT Pulse 76 04/03/2025 8:15 AM CDT Temperature 36.6 C (97.9 F) 11/12/2022 10:16 AM SEXUAL HEALTH PHYSICIAN Respiratory Rate 18 08/18/2021 8:28 AM CDT Oxygen Saturation 97% 04/03/2025 8:15 AM CDT Inhaled Oxygen Concentration - - Weight 51.2 kg (112 lb 14.4 oz) 04/03/2025 8:15 AM CDT Height 160 cm (5' 3) 12/13/2024 9:06 AM SEXUAL HEALTH PHYSICIAN Body Mass Index 20 12/13/2024 9:06 AM SEXUAL HEALTH PHYSICIAN Plan of Treatment Health Maintenance Due Date Last Done Comments COVID-19 vaccine series ( season) 2025 09/07/2024, 10/13/2023, 04/19/2023, Additional history exists Influenza Vaccine (#1) 2025 , 09/05/2023, 09/09/2022, Additional history exists BMI (ht and wt on same day) for age 18+ 12/13/2025 12/13/2024, 11/15/2024, 11/14/2023, Additional history exists Depression screening for age 12+ 12/13/2025 12/13/2024, 11/14/2023, 09/09/2022, Additional history exists Medicare Wellness for age 65+ 12/14/2025, 11/14/2023, 09/09/2022, Additional history exists Tetanus booster 06/11/2033 06/11/2023, 04/28, 11/04/2003 Hepatitis B series for 19+ Completed 04/28, 12/29/1989, 11/28/1989 Pneumococcal series for age 50+ Completed 02/26/2015, 11/04/2003, 08/28/2003 Zoster (shingles) series for age 50+ Completed 03/31/2020, 12/04/2019, 05/07/2011 DEXA/DXA scan for age 65+ Completed 2020, 08/15/2018, 08/05/2016, Additional history exists RSV vaccine for adults or Completed 08/20/2024 Procedures Procedure Name Priority Date/Time Associated Diagnosis Comments BASIC METABOLIC PANEL Routine 05/01/2025 1:08 PM CDT Chronic hyponatremia XR DXA BONE DENSITY 2 SITES AXIAL Routine 08/18/2021 9:54 AM CDT Osteoporosis, unspecified osteoporosis type, unspecified pathological fracture presence from Last 3 Months or Most Recently Relevant to Health Maintenance Results * (ABNORMAL) BASIC METABOLIC PANEL (05/01/2025 1:08 PM CDT) GLUCOSE 88 65 - 99 mg/dL [facility] Comment: Fasting reference interval UREA NITROGEN (BUN) 26(H) 7 - 25 mg/dL [facility] CREATININE 0.75 0.60 - 0.95 mg/dL [facility] EGFR 77 > OR = 60 mL/min/1.7 3m2 [facility] BUN/CREATININE RATIO 35(H) 6 - 22 (calc) [facility] SODIUM 132(L) 135 - 146 mmol/L [facility] POTASSIUM 5.3 3.5 - 5.3 mmol/L [facility] CHLORIDE 97(L) 98 - 110 mmol/L [facility] CARBON DIOXIDE 27 20 - 32 mmol/L [facility] ELECTROLYTE BALANCE 8 7 - 17 mmol/L (calc) [facility] CALCIUM 10.4 8.6 - 10.4 mg/dL [facility] Blood BLOOD SPECIMEN / Unknown 05/01/2025 1:08 PM CDT 05/01/2025 1:10 PM CDT Johnny Valencia MD CHEMISTRY Final Result [facility] [address] [place] [address], [facility] [address] [place] [address] * (ABNORMAL) XR DXA BONE DENSITY 2 [...] Patients: Results are automatically released to your [employer] account once available, in compliance with federal regulations. This means that you may see your results before your provider has had a chance to review them. Please allow 2-3 business days for your provider to comment on the results. XR DXA Bone Mineral Density (BMD) EXAM LOCATION: [address] [address] PATIENT NAME: Areli Lee DATE OF : [...] two scanners are made by the same weight loss sales consultant. 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
--- NOTE | 2025-07-16 14:15 | ED.ABDPAIN ---
HPI - Abdominal Pain General Time Seen by Provider: 14:15 Date Seen: 07/16/25 Chief Complaint: Abdominal Pain Stated Complaint: Nausea, abdominal pain Time Seen by Provider: 07/16/25 14:15 Source: patient and RN notes reviewed Mode of arrival: ambulatory Limitations: no limitations History of Present Illness HPI narrative: This 89-year-old female is coming in with concern of possible bowel obstruction. She has had appendectomy, history of small-bowel resection and history of bowel obstructions. This started bothering her about 8 or 9:00 p.m. last night. She ate dinner, went for walk afterwards and had symptoms developed. Given her history, she switched to clear liquids today, has not eaten anything, just had some tea. She feels she is probably dehydrated. She has had 2 good bowel movements today. She has not felt feverish. She has had nausea and some dry heaves but no actual vomiting. She was just hospitalized this spring here, history of partial small-bowel obstruction, 3rd occurrence this year, 8th a current since 2020 with 2 prior surgeries. Did have exploratory laparotomy, lysis of adhesions and small-bowel resection on March 19 here. MD elicited complaint: abdominal pain Related Data Home Medications ?Medication ?Instructions ?Recorded ?Confirmed cetirizine 10 mg tablet 10 mg PO HS 08/05/22 07/16/25 levothyroxine 75 mcg tablet 75 mcg PO DAILY 08/05/22 07/16/25 lisinopril 5 mg tablet 7.5 mg PO HS 08/05/22 07/16/25 metoprolol tartrate 50 mg tablet 50 mg PO BID 08/05/22 07/16/25 multivitamin 1 tab PO DAILY 08/05/22 07/16/25 omega 0-skt-eer-fish oil 60 mg-90 1 cap PO BID 04/12/23 07/16/25 mg-500 mg capsule (Fish Oil) acetaminophen 500 mg capsule 500 - 1,000 mg PO Q6H PRN 10/28/24 07/16/25 calcium 500 mg (as 1 tab PO DAILY 02/12/25 07/16/25 carbonate)-vitamin D3 5 mcg (200 unit) tablet (Calcium 500 + D) cyclobenzaprine 10 mg tablet 10 mg PO TID PRN 02/12/25 07/16/25 magnesium glycinate 100 mg (as 200 mg PO QHS 02/12/25 07/16/25 glycinate) tablet (Mag Glycinate) naproxen sodium 220 mg tablet 220 mg PO DAILY 02/12/25 07/16/25 vitamin A-vitamin C-vit E-min 1 tab PO DAILY 02/12/25 07/16/25 tablet (Ocutabs tablet) Allergies Allergy/AdvReac Type Severity Reaction Status Date / Time cat dander Allergy Verified 03/14/25 08:20 perfume Allergy Verified 03/14/25 08:20 Review of Systems Status of ROS Reports: 6 or more systems reviewed and unremarkable except as noted in History and below [facility] Medical History History of small bowel obstruction ?Z87.19 - Personal history of other diseases of the digestive system (ICD-10) Sinus tachycardia (09/21/21) ?R00.0 - Tachycardia, unspecified (ICD-10) Sensorineural hearing loss, 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) ?H90.3 - Sensorineural hearing loss, bilateral (ICD-10) 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) ?M19.012 - Primary osteoarthritis, left shoulder (ICD-10) Dermatophytosis of nail (10/16/07) ?B35.1 - Tinea unguium (ICD-10) DDD (degenerative disc disease), 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) ?M51.34 - Other intervertebral disc degeneration, thoracic region (ICD-10) DDD (degenerative disc disease), lumbar (02/06/23) ?M51.369 - Other intervertebral disc degeneration, lumbar region without mention of lumbar back pain or lower extremity pain (ICD-10) Compression fracture of body of thoracic vertebra (09/07/21) ?S22.000A - Wedge compression fracture of unspecified thoracic vertebra, initial encounter for closed fracture (ICD-10) Chronic hyponatremia (11/15/23) ?E87.1 - Hypo-osmolality and hyponatremia (ICD-10) Unspecified hypothyroidism (04/08/07) ?E03.9 - Hypothyroidism, unspecified (ICD-10) Tendinitis involving right hip abductors (11/14/23) ?M76.891 - Other specified enthesopathies of right lower limb, excluding foot (ICD-10) Steatosis of liver (11/14/23) ?K76.0 - Fatty (change of) liver, not elsewhere classified (ICD-10) Hypertension (11/14/23) ?I10 - Essential (primary) hypertension (ICD-10) History of small bowel obstruction (01/23/25) ?Z87.19 - Personal history of other diseases of the digestive system (ICD-10) Anemia (11/14/23) ?D64.9 - Anemia, unspecified (ICD-10) Osteoarthritis of right hip ?M16.11 - Unilateral primary osteoarthritis, right hip (ICD-10) Tendinitis involving right hip abductors ?M76.891 - Other specified enthesopathies of right lower limb, excluding foot (ICD-10) Steatosis of liver ?K76.0 - Fatty (change of) liver, not elsewhere classified (ICD-10) CKD (chronic kidney disease) ?N18.9 - Chronic kidney disease, unspecified (ICD-10) Partial hamstring tear ?S76.319A - Strain of muscle, fascia and tendon of the posterior muscle group at thigh level, unspecified thigh, initial encounter (ICD-10) Right hip impingement syndrome ?M25.851 - Other specified joint disorders, right hip (ICD-10) Hypertension ?I10 - Essential (primary) hypertension (ICD-10) Left bundle branch block ?I44.7 - Left bundle-branch block, unspecified (ICD-10) Small bowel obstruction ?K56.609 - Unspecified intestinal obstruction, unspecified as to partial versus complete obstruction (ICD-10) Postoperative ileus ?K91.89 - Other postprocedural complications and disorders of digestive system (ICD-10) ?K56.7 - Ileus, unspecified (ICD-10) Postoperative hypoxia ?R09.02 - Hypoxemia (ICD-10) ?Z98.890 - Other specified postprocedural states (ICD-10) Anemia following surgery ?D64.9 - Anemia, unspecified (ICD-10) Strain of right hip ?S76.011A - Strain of muscle, fascia and tendon of right hip, initial encounter (ICD-10) Sigmoid diverticulosis ?K57.30 - Diverticulosis of large intestine without perforation or abscess without bleeding (ICD-10) Arthritis ?M19.90 - Unspecified osteoarthritis, unspecified site (ICD-10) GERD (gastroesophageal reflux disease) ?K21.9 - Gastro-esophageal reflux disease without esophagitis (ICD-10) Atrial fibrillation ?I48.91 - Unspecified atrial fibrillation (ICD-10) Hypothyroid ?E03.9 - Hypothyroidism, unspecified (ICD-10) Surgical History S/P small bowel resection ?Z90.49 - Acquired absence of other specified parts of digestive tract (ICD-10) S/P laparotomy with lysis of adhesions ?Z98.890 - Other specified postprocedural states (ICD-10) 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) ?Z98.890 - Other specified postprocedural states (ICD-10) History of ankle surgery (12/04/92) ?Z98.890 - Other specified postprocedural states (ICD-10) 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 She lives in [place] with her . She does not smoke. She drinks 1 glass of wine a day. Code status is full. What is your current living situation?: I presently have a place to live Problems where you live: no known problems Problems where you live details: none In the past 12 months, utilities in danger of being shut off: no In past 12 months, lack of transportation kept you from medical appts, meetings, work, or getting things needed for daily living: no In the past 12 mos, have been you worried that your food would run out before you had money to buy more?: never true In the past 12 mos, the food you bought just didn't last and you didn't have money to buy more?: never true Highest level of school completed/degree received: Bachelor's degree Smoking Status: Former smoker What tobacco products do you use: cigarettes Smoking quit date/years: >15 years ago Do you use any of these nicotine containing products: None Second hand tobacco smoke exposure: No How often do you have a drink containing alcohol: 2-3 times a week Alcohol type: wine Alcohol type details: occasionally a baileys How many standard drinks containing alcohol do you have on a typical day: 1 or 2 How often do you have six or more drinks on one occasion: Never AUDIT-C Alcohol total score: 3 Non-prescribed substance use: denies use Caffeine: Yes How often does anyone, including family, friends and others, physically hurt you: never How often does anyone, including family, friends and others, insult or talk down to you: never How often does anyone, including family, friends and others, threaten you with harm: never How often does anyone, including family, friends and others, scream or curse at you: never service: No Exam Const: Vital Signs, click to edit/add: Vital Signs - 24 hr 07/16/25 12:51 07/16/25 14:21 07/16/25 18:00 Temperature 97.6 F Pulse Rate 95 Pulse Rate [Pulse Oximeter] 94 Respiratory Rate 16 Blood Pressure Blood Pressure [Ri ght Upper Arm] 146/77 H Pulse Oximetry 92 96 95 Oxygen Delivery Me thod Room Air 07/16/25 18:02 07/16/25 18:15 07/16/25 18:32 Temperature Pulse Rate 93 89 Pulse Rate [Pulse Oximeter] Respiratory Rate 20 Blood Pressure 189/104 H 183/116 H Blood Pressure [Ri ght Upper Arm] Pulse Oximetry 91 94 Oxygen Delivery Me thod 07/16/25 18:46 07/16/25 18:50 07/16/25 19:02 Temperature Pulse Rate 103 H Pulse Rate [Pulse Oximeter] Respiratory Rate Blood Pressure 177/103 H 198/122 H Blood Pressure [Ri ght Upper Arm] Pulse Oximetry 92 Oxygen Delivery Me thod 07/16/25 19:11 Temperature Pulse Rate 100 Pulse Rate [Pulse Oximeter] Respiratory Rate Blood Pressure Blood Pressure [Ri ght Upper Arm] Pulse Oximetry 89 Oxygen Delivery Me thod This 89-year-old female is alert, interactive, no apparent distress. Sclera clear, face atraumatic, speaking in complete sentences. Neck is slender, no masses. Lungs clear, no tachypnea, no accessory muscle use. CV regular rate and rhythm, soft systolic murmur, normal S1-S2, no S3-S4. Abdomen is mildly distended, do not hear any bowel sounds. She has some mild tenderness when I palpate on the right side. There really is no rebound or guarding, cannot feel any masses or organomegaly. No lower extremity edema, slender frame. Patient was ambulatory into the ED of her own accord. Documenting provider has reviewed patient's vital signs: yes Course Course ED Course: This patient certainly is concerning for recurrent partial small-bowel obstruction. Is passing stool today twice but still her exam would be consistent with obstructive process versus ileus. She will have an IV placed, will give her IV fluids and Zofran. She is not needing anything for pain at this time. Will get a full complement of labs. I do think we can start with a flat and upright to assess the architecture of her bowels at this time. If there is any concerning labs with grossly elevated white count or lactate, may need to do CT imaging. Reevaluation(s) Time of Reevaluation #1: 15:54 Reevaluation #1: Patient was resting, she is comfortable. Has almost completed her IV fluids. Reviewed with her that her potassium is elevated, do wonder if this might be factitious and lysis of cells. She states they had to poke her 3 times to get blood. Will recheck her potassium. I have ordered subsequent fluids. Did also review with her that she will be getting a CT, her bowels do look concerning on the x-ray imaging. What sounded possibly like partial small-bowel obstruction certainly looks more concerning on her plain film imaging. Do believe that CT should be obtained. Consultations Consultation #1: Spoke with general surgeon Dr. Cunningham and reviewed this case. Patient will need to be admitted, NPO with NG tube placement, will need IV fluid support. She is requesting the hospitalist be primary, will let Dr. Varela know. Patient is updated on all of this. Did subsequently speak with Dr. Varela. We discussed maintenance fluids. Patient may be here in the ED for a while as there will be a delay due to staffing getting her to the floor. Dr. Varela does accept. Time: 17:56 Vital Signs Vital signs: Initial Vital Signs Temperature 97.6 F 07/16/25 12:51 Temperature Source Temporal Artery Scan 07/16/25 12:51 Pulse Rate 94 07/16/25 12:51 Pulse Rhythm Regular 07/16/25 12:51 Respiratory Rate 16 07/16/25 12:51 Blood Pressure 146/77 H 07/16/25 12:51 Blood Pressure Mean 100 07/16/25 12:51 Pulse Oximetry 92 07/16/25 12:51 Oxygen Delivery Method Room Air 07/16/25 12:51 Vital Signs Temperature 97.6 F 07/16/25 12:51 Pulse Rate 94 07/16/25 12:51 Respiratory Rate 16 07/16/25 12:51 Blood Pressure 146/77 H 07/16/25 12:51 Pulse Oximetry 92 07/16/25 12:51 Oxygen Delivery Method Room Air 07/16/25 12:51 Temperature 97.5 F L 07/18/25 08:05 Pulse Rate 82 07/18/25 08:05 Respiratory Rate 16 07/18/25 08:05 Blood Pressure 161/85 H 07/18/25 08:05 Pulse Oximetry 92 07/18/25 08:05 Oxygen Delivery Method Room Air 07/18/25 08:05 Medications Administered Medications: Generic Name Dose Route Start Last Admin Trade Name Freq PRN Reason Stop Dose Admin Benzocaine/Menthol 1 each 07/17/25 11:02 07/18/25 04:28 Benzocaine/Menthol 1 Each Lozenge MUCOUS MEM 1 each Q1H PRN Administration Cetirizine HCl 10 mg 07/17/25 21:00 07/17/25 20:36 Cetirizine Hcl 10 Mg Tablet PO 10 mg HS [place] Administration Enoxaparin Sodium 40 mg 07/17/25 21:00 07/17/25 20:38 Enoxaparin 40 Mg/0.4 Ml Inj SUBCUT 40 mg HS [place] Administration Lactated Ringer's 1,000 mls @ 75 mls/hr 07/16/25 18:35 07/17/25 20:39 Lactated Ringers 1000 Ml IV 75 mls/hr .[id number] [place] Administration Levothyroxine Sodium 75 mcg 07/17/25 07:00 07/18/25 06:56 Levothyroxine 75 Mcg Tablet PO 75 mcg 0700 [place] Administration Lisinopril 7.5 mg 07/16/25 22:07 07/17/25 20:37 Lisinopril 5 Mg Tablet PO 7.5 mg HS [place] Administration Metoprolol Tartrate 50 mg 07/16/25 22:07 07/18/25 08:05 Metoprolol Tartrate 50 Mg Tablet PO 50 mg BID [place] Administration Ondansetron HCl 4 mg 07/16/25 22:07 07/17/25 00:20 Ondansetron 2 Mg/Ml Inj IVP 4 mg Q4H PRN Administration Nausea Sodium Chloride 5 ml 07/16/25 22:07 07/17/25 00:20 Sodium Chloride 0.9 % (Flush) 10 Ml Syringe IVF 5 ml .FLUSH PRN Administration Sodium Chloride 5 ml 07/17/25 09:00 07/18/25 08:06 Sodium Chloride 0.9 % (Flush) 10 Ml Syringe IVF Not Given BID [place] Discontinued Medications Generic Name Dose Route Start Last Admin Trade Name Freq PRN Reason Stop Dose Admin Benzocaine 1 each 07/16/25 18:15 07/16/25 18:50 Benzocaine 20 % [place] PO 07/16/25 18:16 1 each ONCE ONE Administration Sodium Chloride 1,000 mls @ 500 mls/hr 07/16/25 14:21 07/16/25 16:28 0.9 % Sodium Chloride 1000 Ml IV 07/16/25 16:20 Infused .Q2H [place] Infusion Sodium Chloride 1,000 mls @ 500 mls/hr 07/16/25 15:54 07/16/25 18:28 0.9 % Sodium Chloride 1000 Ml IV 07/16/25 17:53 Infused .Q2H [place] Infusion Lidocaine HCl 6 ml 07/16/25 18:19 07/16/25 18:50 Lidocaine Hcl 2 % Jelly (Top) Sterile TOPICAL 07/16/25 18:20 6 ml ONCE ONE Administration Ondansetron HCl 4 mg 07/16/25 14:20 07/16/25 15:11 Ondansetron 2 Mg/Ml Inj IVP 07/16/25 14:21 4 mg ONCE ONE Administration MDM - Abdominal Pain Lab Data Attestation: I reviewed the patient's lab results. Labs: Lab Results 07/16/25 07/16/25 Range/Units 15:03 17:30 WBC 16.22 H (4.50-11.00) K/uL RBC 4.98 (4.00-5.20) m/uL Hgb 14.6 (12.0-16.0) gm/dL Hct 44.5 (33.0-51.0) % MCV 89 (80-100) fL MCH 29 (26-34) pg MCHC 33 (32-36) gm/dL RDW Coeff of Albertina 13.9 (11.5-15.5) % Plt Count 271 (140-440) K/uL Neut % (Auto) 94.0 H (42.0-72.0) % Lymph % (Auto) 2.5 L (20-44) % Amador % (Auto) 3.1 (0.0-11.0) % Eos % (Auto) 0.0 (0.0-7.0) % Baso % (Auto) 0.1 (0.0-3.0) % Neut # (Auto) 15.20 H (1.7-7.0) K/uL Lymph # (Auto) 0.40 L (0.90-2.90) K/uL [place] # (Auto) 0.50 (0.00-0.90) K/UL Eos # (Auto) 0.00 (0.00-0.50) K/uL Baso # (Auto) 0.00 (0.00-0.30) K/uL Abs Immat Gran (auto) 0.00 (0.00-0.30) K/uL Imm/Tot Granulo (auto) 0.3 % Sodium 133 L (135-149) mmol/L Potassium 5.8 H 4.9 (3.6-5.1) mmol/L Chloride 94 L (96-114) mmol/L Carbon Dioxide 28 (20-32) mmol/L Anion Gap 11 (7-15) mEq/L BUN 36 H (7-30) mg/dL Creatinine 0.8 (0.5-1.5) mg/dL Estimated GFR 71 ml/min Glucose 132 H (60-115) mg/dL Lactate 2.2 H (0.5-1.9) mmol/L Calcium 10.9 H (8.4-10.6) mg/dL Total Bilirubin 1.0 (0.1-1.5) mg/dL AST 48 H (12-35) U/L ALT 23 (4-35) U/L Alkaline Phosphatase 82 (40-150) U/L C-Reactive Protein 1.0 (0.5-1.0) mg/dL Total Protein 9.1 H (6.0-8.3) g/dL Albumin 4.8 (3.3-5.0) g/dL Imaging Data Abdominal x-ray: Attestation: I have reviewed the pertinent imaging results. My impression: Patient's imaging reviewed, small bowel concerning for obstruction on imaging. Await Radiology over-read, have also ordered CT imaging. Radiologist's impression: Patient: [facility] Facility:?[facility] Patient ID:?[id number] Site Patient ID:?[id number]. Site :?[id number] Study:?XRay-Abdomen/Pelvis 2 VIEWS-07/16/2025 3:33:07 PM Ordering Physician:Parisa Berrios Final Report: INDICATION: Rule out small-bowel obstruction TECHNIQUE: Upright and supine views. COMPARISON: [facility] March 19, 2025 FINDINGS: There are multiple dilated small bowel loops with air-fluid levels on upright exam within the upper and central abdomen. Relatively decompressed appearance of the colon. Minimal stool is seen in the proximal colon. There is no intra-abdominal free air or pathologic calcification. There is no acute osseous abnormality. IMPRESSION: Multiple dilated air-fluid levels within the proximal small bowel commensurate with developing small bowel obstruction. Dictated by León Pena MD @ 07/16/2025 3:57:36 PM (Electronic Signature) CT scan - abdomen: Attestation: I have reviewed the pertinent imaging results. Radiologist's impression: Patient: [facility] Facility:?[facility] Patient ID:?[id number] Site Patient ID:?[id number] Site :?[id number] Study:?CT-Abdomen/Pelvis W/ ISOVUE 370-07/16/2025 4:55:34 PM Ordering Physician:Parisa Berrios Final Report: INDICATION: Bowel obstruction. TECHNIQUE: CT abdomen and pelvis acquired with 56 cc Isovue 370 IV contrast. COMPARISON: CT abdomen pelvis dated 02/19/2025. FINDINGS: Lower chest: Unremarkable. Liver: Unremarkable. Normal in size and attenuation. No suspicious masses. Gallbladder and bile ducts: Query small layering gallstones near the gallbladder neck. Otherwise, unremarkable. Pancreas: Unremarkable. No mass or inflammation. Spleen: Unremarkable. Normal in size. No masses. Adrenal glands: Unremarkable. No nodules. Kidneys: Unremarkable. No suspicious masses, stones, or hydronephrosis. GI tract: Colonic diverticulosis. Redemonstrated postsurgical changes of partial small bowel resection with postsurgical bowel dilatation at the suture line in the right ventral pelvis. There is a redemonstrated focal bowel caliber transition point in the central lower abdomen/superior pelvis, just superior to the bowel suture line (48), with the upstream small bowel measuring up to 4.8 cm (54). Redemonstrated multiple dilated small bowel lobes normal appendix. Vasculature: Abdominal aorta is normal in caliber. Mesenteric arteries are patent. Lymph nodes: No lymphadenopathy. Peritoneum/Abdominal Wall: No sign of mass or infiltration. No free air. New small volume ascites. Pelvis: Unremarkable for age. Bones: No acute or suspicious osseous abnormalities. Redemonstrated severe compression deformity of the L1 vertebral body with approximately 70 percent height loss along its left aspect. Redemonstrated compression deformity of the T11 vertebral body with approximately 50 percent height loss. IMPRESSION: 1. Findings compatible with a persistent or recurrent small-bowel obstruction with a focal transition point in the central lower abdomen/superior pelvis, just superior to the bowel suture line. The upstream small bowel measures up to 4.8 cm. 2. New small volume ascites, nonspecific. Please note that all CT scans at this facility use dose modulation, iterative reconstruction, and/or weight-based dosing when appropriate to reduce radiation dose to as low as reasonably achievable. Dictated by Cal Rodríguez MD @ 07/16/2025 5:33:44 PM (Electronic Signature) XR ABD post NGT: Attestation: I have reviewed the pertinent imaging results. My impression: Did visualize images, NG tube looks to be in stomach. Radiologist's impression: Patient: ALYSSA [facility]STER Facility:?[facility] Patient ID:?[id number] Site Patient ID:?[id number]. Site :?[id number] Study:?XRay-Abdomen/Pelvis 1 VIEW-07/16/2025 7:16:17 PM Ordering Physician:Parisa Berrios Final Report: Indication: NG tube placement Technique: Supine view abdomen was obtained. Comparison: Two-view abdomen July 16, 2025 Findings: Distal aspect of enteric tube is in satisfactory position within the gastric lumen. Persistent dilated loops of central small bowel commensurate with obstruction. There is no intraabdominal free air. The visualized osseus structures are grossly intact. Impression: Satisfactory position of enteric tube within the gastric lumen. Dictated by León Pena MD @ 07/16/2025 7:33:25 PM (Electronic Signature) Discharge Plan Discharge Clinical Impression: Small bowel obstruction Patient Disposition: Admitted As Inpatient
--- NOTE | 2025-07-16 14:21 | CRLHL7_ITS ---
For Patients: As a result of the Century Cures Act, medical imaging exams and procedure reports are released immediately into your electronic medical record. You may view this report before your referring provider. If you have questions, please contact your health care provider. INDICATION: Rule out small-bowel obstruction TECHNIQUE: Upright and supine views. COMPARISON: [facility] March 19, 2025 FINDINGS: There are multiple dilated small bowel loops with air-fluid levels on upright exam within the upper and central abdomen. Relatively decompressed appearance of the colon. Minimal stool is seen in the proximal colon. There is no intra-abdominal free air or pathologic calcification. There is no acute osseous abnormality. IMPRESSION: Multiple dilated air-fluid levels within the proximal small bowel commensurate with developing small bowel obstruction. Dictated by León Pena MD @ 07/16/2025 3:57:36 PM (Electronically Signed)
[2025-07-16 15:11] LABS: Lactate* 2.2 mmol/L (0.5-1.9)
[2025-07-16] MEDS: ONDANSETRON 2 MG/ML inj 4 MG IVP (15:11)
[2025-07-16 15:15] LABS: Hematocrit 44.5 % (33.0-51.0); Hemoglobin* 14.6 gm/dL (12.0-16.0); Immature Granulocytes Pct Auto 0.3 %; Mean Corpuscular HGB Conc 33 gm/dL (32-36); Mean Corpuscular Hemoglobin 29 pg (26-34); Mean Corpuscular Volume 89 fL (80-100); RDW Coefficient of Variation % 13.9 % (11.5-15.5); Red Blood Count 4.98 m/uL (4.00-5.20); White Blood Count* 16.22 K/uL (4.50-11.00)
[2025-07-16 15:22] LABS: Immature Granulocytes Abs Auto 0.00 K/uL (0.00-0.30); Lymphocytes Absolute Auto 0.40 K/uL (0.90-2.90); Slide Review Reflex No
[2025-07-16 15:39] LABS: Chloride* 94 mmol/L (96-114)
[2025-07-16 15:40] LABS: Albumin* 4.8 g/dL (3.3-5.0); Potassium* 5.8 mmol/L (3.6-5.1); Sodium* 133 mmol/L (135-149)
--- NOTE | 2025-07-16 15:40 | CRLHL7_ITS ---
For Patients: As a result of the Century Cures Act, medical imaging exams and procedure reports are released immediately into your electronic medical record. You may view this report before your referring provider. If you have questions, please contact your health care provider. INDICATION: Bowel obstruction. TECHNIQUE: CT abdomen and pelvis acquired with 56 cc Isovue 370 IV contrast. COMPARISON: CT abdomen pelvis dated 02/19/2025. FINDINGS: Lower chest: Unremarkable. Liver: Unremarkable. Normal in size and attenuation. No suspicious masses. Gallbladder and bile ducts: Query small layering gallstones near the gallbladder neck. Otherwise, unremarkable. Pancreas: Unremarkable. No mass or inflammation. Spleen: Unremarkable. Normal in size. No masses. Adrenal glands: Unremarkable. No nodules. Kidneys: Unremarkable. No suspicious masses, stones, or hydronephrosis. GI tract: Colonic diverticulosis. Redemonstrated postsurgical changes of partial small bowel resection with postsurgical bowel dilatation at the suture line in the right ventral pelvis. There is a redemonstrated focal bowel caliber transition point in the central lower abdomen/superior pelvis, just superior to the bowel suture line (48), with the upstream small bowel measuring up to 4.8 cm (54). Redemonstrated multiple dilated small bowel lobes normal appendix. Vasculature: Abdominal aorta is normal in caliber. Mesenteric arteries are patent. Lymph nodes: No lymphadenopathy. Peritoneum/Abdominal Wall: No sign of mass or infiltration. No free air. New small volume ascites. Pelvis: Unremarkable for age. Bones: No acute or suspicious osseous abnormalities. Redemonstrated severe compression deformity of the L1 vertebral body with approximately 70 percent height loss along its left aspect. Redemonstrated compression deformity of the T11 vertebral body with approximately 50 percent height loss. IMPRESSION: 1. Findings compatible with a persistent or recurrent small-bowel obstruction with a focal transition point in the central lower abdomen/superior pelvis, just superior to the bowel suture line. The upstream small bowel measures up to 4.8 cm. 2. New small volume ascites, nonspecific. Please note that all CT scans at this facility use dose modulation, iterative reconstruction, and/or weight-based dosing when appropriate to reduce radiation dose to as low as reasonably achievable. Dictated by Cal Rodríguez MD @ 07/16/2025 5:33:44 PM (Electronically Signed)
[2025-07-16 15:42] LABS: Blood Urea Nitrogen* 36 mg/dL (7-30); Creatinine* 0.8 mg/dL (0.5-1.5); Estimated Glomerular Filt Rate 71 ml/min
[2025-07-16 15:43] LABS: Alanine Aminotransferase* 23 U/L (4-35); Alkaline Phosphatase* 82 U/L (40-150); Anion Gap 11 mEq/L (7-15); Aspartate Amino Transferase* 48 U/L (12-35); Bilirubin Total* 1.0 mg/dL (0.1-1.5); Calcium* 10.9 mg/dL (8.4-10.6); Carbon Dioxide* 28 mmol/L (20-32); Glucose* 132 mg/dL (60-115); Total Protein* 9.1 g/dL (6.0-8.3)
[2025-07-16 17:48] LABS: Potassium* 4.9 mmol/L (3.6-5.1)
--- NOTE | 2025-07-16 18:05 | CRLHL7_ITS ---
For Patients: As a result of the Century Cures Act, medical imaging exams and procedure reports are released immediately into your electronic medical record. You may view this report before your referring provider. If you have questions, please contact your health care provider. Indication: NG tube placement Technique: Supine view abdomen was obtained. Comparison: Two-view abdomen July 16, 2025 Findings: Distal aspect of enteric tube is in satisfactory position within the gastric lumen. Persistent dilated loops of central small bowel commensurate with obstruction. There is no intraabdominal free air. The visualized osseus structures are grossly intact. Impression: Satisfactory position of enteric tube within the gastric lumen. Dictated by León Pena MD @ 07/16/2025 7:33:25 PM (Electronically Signed)
[2025-07-16] MEDS: BENZOCAINE 20 % SPRAY 1 EACH PO (18:50)
[2025-07-16] MEDS: lidocaine HCL 2 % JELLY (TOP) STERILE 6 ML TOPICAL (18:50)
[2025-07-16] MEDS: LACTATED RINGERS 1000 ML 1,000 ML 75 ML IV (19:12)
--- NOTE | 2025-07-16 21:56 | PM.IMHP1 ---
Assessment and Plan Assessment and plan (1) Small bowel obstruction: Problem comment: - multiple occurrences - first 2020 - (only abd surg hx was a Tubal ligation) - [facility] at [facility] - 2021 - [facility]. JOANA - [phone] 3 occurences; conservative tx - 2024 - 02/11 and 02/19 admissions, conservative managment. 03/14 admission had exp lap with lysis of adhesions and small bowel resection by Adrian on 03/19/25. 07/16/25 - this admission. 07/16/25 Dr. Cunningham (gen surgery) consulted from ER. NGT placed and on LIS. NPO. Gen surgery consulted. Maintenance IVF. Status: Acute (2) Hypertension: Problem comment: -continue lisinopril and metoprolol -hx of SVT/Afib and is sensitive when metoprolol is held - I have continued these medications, but it is unclear if she will absorb them when given orally. May need IV dosing. Monitor. Status: Chronic (3) Hypothyroid: Problem comment: Continue levothyroxine @ home dose. May need IV dosing if it appears she is not absorbing meds. Status: Chronic (4) Hyponatremia: Problem comment: Chronic -baseline NA 130's; she's at 133 today and asymptomatic. Monitor. Status: Chronic Hospitalist- H&P: HPI History of Present Illness Time Seen by Provider: 21:40 Date Seen: 07/16/25 Chief complaint: Nausea, abdominal pain Narrative: Areli Lee is a 89 year old female Review of Systems Status of ROS: Reports: 10 or more systems reviewed and unremarkable except as noted in History and below Medical Decision Making Medical Decision Making Code Status: Full Code Has patient completed a Health Care Directive: No During This Stay, Who Would You Like To Make Decisions For You In The Event You Are Unable To Make Them For Yourself?: [facility] Medical History (Updated 07/16/25 @ 22:50 by Kathie Varela MD) History of small bowel obstruction ?Z87.19 - Personal history of other diseases of the digestive system (ICD-10) Sinus tachycardia (09/21/21) ?R00.0 - Tachycardia, unspecified (ICD-10) Sensorineural hearing loss, 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) ?H90.3 - Sensorineural hearing loss, bilateral (ICD-10) 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) ?M19.012 - Primary osteoarthritis, left shoulder (ICD-10) Dermatophytosis of nail (10/16/07) ?B35.1 - Tinea unguium (ICD-10) DDD (degenerative disc disease), 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) ?M51.34 - Other intervertebral disc degeneration, thoracic region (ICD-10) DDD (degenerative disc disease), lumbar (02/06/23) ?M51.369 - Other intervertebral disc degeneration, lumbar region without mention of lumbar back pain or lower extremity pain (ICD-10) Compression fracture of body of thoracic vertebra (09/07/21) ?S22.000A - Wedge compression fracture of unspecified thoracic vertebra, initial encounter for closed fracture (ICD-10) Chronic hyponatremia (11/15/23) ?E87.1 - Hypo-osmolality and hyponatremia (ICD-10) Unspecified hypothyroidism (04/08/07) ?E03.9 - Hypothyroidism, unspecified (ICD-10) Tendinitis involving right hip abductors (11/14/23) ?M76.891 - Other specified enthesopathies of right lower limb, excluding foot (ICD-10) Steatosis of liver (11/14/23) ?K76.0 - Fatty (change of) liver, not elsewhere classified (ICD-10) Hypertension (11/14/23) ?I10 - Essential (primary) hypertension (ICD-10) History of small bowel obstruction (01/23/25) ?Z87.19 - Personal history of other diseases of the digestive system (ICD-10) Anemia (11/14/23) ?D64.9 - Anemia, unspecified (ICD-10) Osteoarthritis of right hip ?M16.11 - Unilateral primary osteoarthritis, right hip (ICD-10) Tendinitis involving right hip abductors ?M76.891 - Other specified enthesopathies of right lower limb, excluding foot (ICD-10) Steatosis of liver ?K76.0 - Fatty (change of) liver, not elsewhere classified (ICD-10) CKD (chronic kidney disease) ?N18.9 - Chronic kidney disease, unspecified (ICD-10) Partial hamstring tear ?S76.319A - Strain of muscle, fascia and tendon of the posterior muscle group at thigh level, unspecified thigh, initial encounter (ICD-10) Right hip impingement syndrome ?M25.851 - Other specified joint disorders, right hip (ICD-10) Hypertension ?I10 - Essential (primary) hypertension (ICD-10) Left bundle branch block ?I44.7 - Left bundle-branch block, unspecified (ICD-10) Small bowel obstruction ?K56.609 - Unspecified intestinal obstruction, unspecified as to partial versus complete obstruction (ICD-10) Postoperative ileus ?K91.89 - Other postprocedural complications and disorders of digestive system (ICD-10) ?K56.7 - Ileus, unspecified (ICD-10) Postoperative hypoxia ?R09.02 - Hypoxemia (ICD-10) ?Z98.890 - Other specified postprocedural states (ICD-10) Anemia following surgery ?D64.9 - Anemia, unspecified (ICD-10) Strain of right hip ?S76.011A - Strain of muscle, fascia and tendon of right hip, initial encounter (ICD-10) Sigmoid diverticulosis ?K57.30 - Diverticulosis of large intestine without perforation or abscess without bleeding (ICD-10) Arthritis ?M19.90 - Unspecified osteoarthritis, unspecified site (ICD-10) GERD (gastroesophageal reflux disease) ?K21.9 - Gastro-esophageal reflux disease without esophagitis (ICD-10) Atrial fibrillation ?I48.91 - Unspecified atrial fibrillation (ICD-10) Hypothyroid ?E03.9 - Hypothyroidism, unspecified (ICD-10) Surgical History S/P small bowel resection ?Z90.49 - Acquired absence of other specified parts of digestive tract (ICD-10) S/P laparotomy with lysis of adhesions ?Z98.890 - Other specified postprocedural states (ICD-10) 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) ?Z98.890 - Other specified postprocedural states (ICD-10) History of ankle surgery (12/04/92) ?Z98.890 - Other specified postprocedural states (ICD-10) 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 She lives in [place] with her . She does not smoke. She drinks 1 glass of wine a day. Code status is full. What is your current living situation?: I presently have a place to live Problems where you live: no known problems Problems where you live details: none In the past 12 months, utilities in danger of being shut off: no In past 12 months, lack of transportation kept you from medical appts, meetings, work, or getting things needed for daily living: no In the past 12 mos, have been you worried that your food would run out before you had money to buy more?: never true In the past 12 mos, the food you bought just didn't last and you didn't have money to buy more?: never true Highest level of school completed/degree received: Bachelor's degree Smoking Status: Former smoker What tobacco products do you use: cigarettes Smoking quit date/years: >15 years ago Do you use any of these nicotine containing products: None Second hand tobacco smoke exposure: No How often do you have a drink containing alcohol: 2-3 times a week Alcohol type: wine Alcohol type details: occasionally a shana How many standard drinks containing alcohol do you have on a typical day: 1 or 2 How often do you have six or more drinks on one occasion: Never AUDIT-C Alcohol total score: 3 Non-prescribed substance use: denies use Caffeine: Yes How often does anyone, including family, friends and others, physically hurt you: never How often does anyone, including family, friends and others, insult or talk down to you: never How often does anyone, including family, friends and others, threaten you with harm: never How often does anyone, including family, friends and others, scream or curse at you: never service: No Meds Home Medications and Allergies Home Medications ?Medication ?Instructions ?Recorded ?Confirmed ?Type cetirizine 10 mg tablet 10 mg PO HS 08/05/22 07/16/25 History levothyroxine 75 mcg tablet 75 mcg PO DAILY 08/05/22 07/16/25 History lisinopril 5 mg tablet 7.5 mg PO HS 08/05/22 07/16/25 History metoprolol tartrate 50 mg tablet 50 mg PO BID 08/05/22 07/16/25 History multivitamin 1 tab PO DAILY 08/05/22 07/16/25 History omega 9-usp-iut-fish oil 60 mg-90 1 cap PO BID 04/12/23 07/16/25 History mg-500 mg capsule (Fish Oil) acetaminophen 500 mg capsule 500 - 1,000 mg PO Q6H PRN 10/28/24 07/16/25 History calcium 500 mg (as 1 tab PO DAILY 02/12/25 07/16/25 History carbonate)-vitamin D3 5 mcg (200 unit) tablet (Calcium 500 + D) cyclobenzaprine 10 mg tablet 10 mg PO TID PRN 02/12/25 07/16/25 History magnesium glycinate 100 mg (as 200 mg PO QHS 02/12/25 07/16/25 History glycinate) tablet (Mag Glycinate) naproxen sodium 220 mg tablet 220 mg PO DAILY 02/12/25 07/16/25 History vitamin A-vitamin C-vit E-min 1 tab PO DAILY 02/12/25 07/16/25 History tablet (Ocutabs tablet) Allergies Allergy/AdvReac Type Severity Reaction Status Date / Time cat dander Allergy Verified 03/14/25 08:20 perfume Allergy Verified 03/14/25 08:20 Exam Narrative: Exam Narrative: General: No acute distress. Awake alert oriented x3. HEENT: Normocephalic atraumatic, pupils equally round and reactive to light and accommodation. Oropharynx clear. Mucous membranes are moist. No cervical lymphadenopathy, thyromegaly or carotid bruits. No JVD. Cardiovascular: Regular rate and rhythm. No murmurs, gallops, or rubs. Chest: No increased work of breathing. Clear to auscultation bilaterally. No crackles or wheezes. Abdomen: Bowel sounds absent. Distended, mild tenderness to palpation of both lower quadrants, no rebound tenderness or guarding. No hepatosplenomegaly or masses. Extremities: No edema, no cyanosis or clubbing. Skin: No jaundice, no pallor, no rashes. Neuro: Grossly intact. No focal deficits. Const: Vital Signs, click to edit/add: Vital Signs - 24 hr 07/16/25 12:51 07/16/25 14:21 07/16/25 18:00 Temperature 97.6 F Pulse Rate 95 Pulse Rate [Pulse Oximeter] 94 Respiratory Rate 16 Blood Pressure Blood Pressure [Le ft Arm] Blood Pressure [Ri ght Upper Arm] 146/77 H Pulse Oximetry 92 96 95 Oxygen Delivery Me thod Room Air 07/16/25 18:02 07/16/25 18:15 07/16/25 18:32 Temperature Pulse Rate 93 89 Pulse Rate [Pulse Oximeter] Respiratory Rate 20 Blood Pressure 189/104 H 183/116 H Blood Pressure [Le ft Arm] Blood Pressure [Ri ght Upper Arm] Pulse Oximetry 91 94 Oxygen Delivery Me thod 07/16/25 18:46 07/16/25 18:50 07/16/25 19:02 Temperature Pulse Rate 103 H Pulse Rate [Pulse Oximeter] Respiratory Rate Blood Pressure 177/103 H 198/122 H Blood Pressure [Le ft Arm] Blood Pressure [Ri ght Upper Arm] Pulse Oximetry 92 Oxygen Delivery Me thod 07/16/25 19:11 07/16/25 20:29 07/16/25 21:21 Temperature 97.3 F L Pulse Rate 100 Pulse Rate [Pulse Oximeter] 103 H Respiratory Rate 18 18 Blood Pressure Blood Pressure [Le ft Arm] 195/119 H Blood Pressure [Ri ght Upper Arm] Pulse Oximetry 89 95 95 Oxygen Delivery Me thod Room Air Room Air Hospitalist - H&P: Result Labs Labs: Short CBC 07/16/25 Range/Units 15:03 WBC 16.22 H (4.50-11.00) K/uL Hgb 14.6 (12.0-16.0) gm/dL Hct 44.5 (33.0-51.0) % Plt Count 271 (140-440) K/uL BMP 07/16/25 07/16/25 15:03 17:30 Sodium 133 L Potassium 5.8 H 4.9 Chloride 94 L Carbon Dioxide 28 BUN 36 H Creatinine 0.8 Glucose 132 H Calcium 10.9 H Liver Function 07/16/25 Range/Units 15:03 Total Bilirubin 1.0 (0.1-1.5) mg/dL AST 48 H (12-35) U/L ALT 23 (4-35) U/L Alkaline Phosphatase 82 (40-150) U/L Albumin 4.8 (3.3-5.0) g/dL Ordering Physician: Agustina Quispe M.D. Date of Service: 07/16/25 Procedure(s): XR abdomen min 2V Accession Number(s): [id number] cc: Akila Cerda M.D.; Agustina Quispe M.D.~ For Patients: As a result of the Cures Act, medical imaging exams and procedure reports are released immediately into your electronic medical record. You may view this report before your referring provider. If you have questions, please contact your health care provider. INDICATION: Rule out small-bowel obstruction TECHNIQUE: Upright and supine views. COMPARISON: [facility] March 19, 2025 FINDINGS: There are multiple dilated small bowel loops with air-fluid levels on upright exam within the upper and central abdomen. Relatively decompressed appearance of the colon. Minimal stool is seen in the proximal colon. There is no intra-abdominal free air or pathologic calcification. There is no acute osseous abnormality. IMPRESSION: Multiple dilated air-fluid levels within the proximal small bowel commensurate with developing small bowel obstruction. Dictated by León Pena MD @ 07/16/2025 3:57:36 PM (Electronically Signed) Ordering Physician: Agustina Quispe M.D. Date of Service: 07/16/25 Procedure(s): CT abdomen pelvis w con Accession Number(s): [id number] cc: Akila Cerda M.D.; Agustina Quispe M.D.~ For Patients: As a result of the Cures Act, medical imaging exams and procedure reports are released immediately into your electronic medical record. You may view this report before your referring provider. If you have questions, please contact your health care provider. INDICATION: Bowel obstruction. TECHNIQUE: CT abdomen and pelvis acquired with 56 cc Isovue 370 IV contrast. COMPARISON: CT abdomen pelvis dated 02/19/2025. FINDINGS: Lower chest: Unremarkable. Liver: Unremarkable. Normal in size and attenuation. No suspicious masses. Gallbladder and bile ducts: Query small layering gallstones near the gallbladder neck. Otherwise, unremarkable. Pancreas: Unremarkable. No mass or inflammation. Spleen: Unremarkable. Normal in size. No masses. Adrenal glands: Unremarkable. No nodules. Kidneys: Unremarkable. No suspicious masses, stones, or hydronephrosis. GI tract: Colonic diverticulosis. Redemonstrated postsurgical changes of partial small bowel resection with postsurgical bowel dilatation at the suture line in the right ventral pelvis. There is a redemonstrated focal bowel caliber transition point in the central lower abdomen/superior pelvis, just superior to the bowel suture line (/48), with the upstream small bowel measuring up to 4.8 cm (/54). Redemonstrated multiple dilated small bowel lobes normal appendix. Vasculature: Abdominal aorta is normal in caliber. Mesenteric arteries are patent. Lymph nodes: No lymphadenopathy. Peritoneum/Abdominal Wall: No sign of mass or infiltration. No free air. New small volume ascites. Pelvis: Unremarkable for age. Bones: No acute or suspicious osseous abnormalities. Redemonstrated severe compression deformity of the L1 vertebral body with approximately 70 percent height loss along its left aspect. Redemonstrated compression deformity of the T11 vertebral body with approximately 50 percent height loss. IMPRESSION: 1. Findings compatible with a persistent or recurrent small-bowel obstruction with a focal transition point in the central lower abdomen/superior pelvis, just superior to the bowel suture line. The upstream small bowel measures up to 4.8 cm. 2. New small volume ascites, nonspecific. Please note that all CT scans at this facility use dose modulation, iterative reconstruction, and/or weight-based dosing when appropriate to reduce radiation dose to as low as reasonably achievable. Dictated by Cal Rodríguez MD @ 07/16/2025 5:33:44 PM (Electronically Signed) Ordering Physician: Agustina Quispe M.D. Date of Service: 07/16/25 Procedure(s): XR abdomen 1V Accession Number(s): [id number] cc: Akila Cerda M.D.; Agustina Quispe M.D.~ For Patients: As a result of the Century Cures Act, medical imaging exams and procedure reports are released immediately into your electronic medical record. You may view this report before your referring provider. If you have questions, please contact your health care provider. Indication: NG tube placement Technique: Supine view abdomen was obtained. Comparison: Two-view abdomen July 16, 2025 Findings: Distal aspect of enteric tube is in satisfactory position within the gastric lumen. Persistent dilated loops of central small bowel commensurate with obstruction. There is no intraabdominal free air. The visualized osseus structures are grossly intact. Impression: Satisfactory position of enteric tube within the gastric lumen. Dictated by León Pena MD @ 07/16/2025 7:33:25 PM (Electronically Signed)
--- NOTE | 2025-07-16 22:07 | CRLHL7_ITS ---
For Patients: As a result of the Century Cures Act, medical imaging exams and procedure reports are released immediately into your electronic medical record. You may view this report before your referring provider. If you have questions, please contact your health care provider. Indication: NG tube placement Technique: Single view of the abdomen Comparison: Same-day radiograph Findings/Impression: Enteric tube terminates in the body of the stomach, side hole distal to the GE junction. Dilated loops of small bowel again demonstrated. Dictated by Enrique Carvalho MD @ 07/16/2025 10:57:58 PM (Electronically Signed)
[2025-07-16] MEDS: METOPROLOL TARTRATE 50 MG TABLET PO (22:26)
[2025-07-17] VITALS (7 sets, daily range): BP systolic 135–180; BP diastolic 77–102; PULSE 74–104; RESP 16–20; TEMP 36.6–37.2; O2SAT 92–96; BMI 20.2
[2025-07-17] MEDS: ONDANSETRON 2 MG/ML inj 4 MG IVP (00:20)
[2025-07-17] MEDS: SODIUM CHLORIDE 0.9 % (FLUSH) 10 ML SYRINGE 5 ML IVF ×3 (00:20→20:38)
[2025-07-17] MEDS: LEVOTHYROXINE 75 MCG TABLET PO (07:04)
--- NOTE | 2025-07-17 07:07 | PC.NURSE ---
Pt is alert and oriented x3. Afebrile. Pt denies pain but states ?I just feel uncomfortable?. Pt reported nausea, managed with PRN medication. Pt?s NG tube is at ?58? cm and is patent and draining. Pt had 150 ml output from NG [id number].?Pt is up SBA with IV pole, voiding and tolerating an NPO diet. ?
[2025-07-17 08:25] LABS: Lactate* 1.5 mmol/L (0.5-1.9)
--- NOTE | 2025-07-17 08:25 | PM.IMPN1 ---
Assessment and Plan Assessment and plan (1) Small bowel obstruction: Problem comment: - recurrent, history below - NG placed 07/16, currently with minimal outpatient, + flatus - Dr Cunningham of General Surgery following - first SBO 2020 - (only abd surg hx was a Tubal ligation) - JOANA at [facility] - 2021 - [facility]. JOANA - [phone] 3 occurences; conservative tx - 2024 - 02/11 and 02/19 admissions, conservative management. 03/14 admission had lysis of adhesions, small bowel resection, appendectomy by Adrian on 03/19/25 Status: Acute (2) Hypertension: Problem comment: -continue lisinopril and metoprolol (giving orally and clamping NG) -hx of SVT/Afib and is sensitive when metoprolol is held Status: Chronic (3) Hypothyroid: Problem comment: - continue levothyroxine @ home dose. May need IV dosing if it appears she is not absorbing meds. Status: Chronic (4) Hyponatremia: Problem comment: - chronic, baseline 130-133, currently 135 Status: Chronic Plan - per above - Lovenox for ppx - updated bedside, questions answered Subjective Date Seen: 07/17/25 Interval history: Brandy is a delightful 89 yo female with a history of recurrent SBO who was admitted to the hospital on 07/16 with another obstruction, focal transition point in central lower abdomen/superior pelvis. Last surgical intervention was 03/18/2025 for lysis of adhesions, small-bowel resection, incidental appendectomy. She had not had a recurrence until this week. No recent illness. NG tube placed upon admission, output 250 mL overnight. Brandy is feeling a little better today, but not yet back to baseline. No nausea; she has passed flatus and 1 small stool. On admission, labs revealed a white count of 16 with PMN predominance, lactate of 2.2, calcium of 10.9, sodium of 133 and potassium of 5.8. After IV fluid, labs have normalized. She has no concerns for hospitalist team this morning. Exam Narrative: Exam Narrative: GEN: Alert and oriented, laying in bed and nontoxic. She was also seen ambulating in the lewis HEENT: EOMIs bilaterally, no scleral icterus CV: RRR, No concerning murmurs R: LCTA bilaterally without concerning wheezing Ab: Soft, mild distention, decreased bowel sounds throughout Ext: wwp, no concerning edema Skin: No concerning skin lesions or rashes on exposed skin Neuro: Nonfocal Psych: Appropriate Const: Vital Signs, click to edit/add: Vital Signs - 24 hr 07/16/25 12:51 07/16/25 14:21 07/16/25 18:00 Temperature 97.6 F Pulse Rate 95 Pulse Rate [Pulse Oximeter] 94 Respiratory Rate 16 Blood Pressure Blood Pressure [Le ft Arm] Blood Pressure [Ri ght Upper Arm] 146/77 H Pulse Oximetry 92 96 [facility] 07/16/25 18:02 07/16/25 18:15 07/16/25 18:32 Temperature Pulse Rate 93 89 Pulse Rate [Pulse Oximeter] Respiratory Rate 20 Blood Pressure 189/104 H 183/116 H Blood Pressure [Le ft Arm] Blood Pressure [Ri ght Upper Arm] Pulse Oximetry 91 94 [facility] 07/16/25 18:46 07/16/25 18:50 07/16/25 19:02 Temperature Pulse Rate 103 H Pulse Rate [Pulse Oximeter] Respiratory Rate Blood Pressure 177/103 H 198/122 H Blood Pressure [Le ft Arm] Blood Pressure [Ri ght Upper Arm] Pulse Oximetry 92 Oxygen Delivery Md thod 07/16/25 19:11 07/16/25 20:29 07/16/25 21:21 Temperature 97.3 F L Pulse Rate 100 Pulse Rate [Pulse Oximeter] 103 H Respiratory Rate 18 18 Blood Pressure Blood Pressure [Le ft Arm] 195/119 H Blood Pressure [Ri ght Upper Arm] Pulse Oximetry 89 95 95 Oxygen Delivery Me od Room Air Room Air 07/17/25 00:45 07/17/25 00:45 07/17/25 00:45 Temperature 97.8 F Pulse Rate Pulse Rate [Pulse Oximeter] 77 98 Respiratory Rate 20 16 20 Blood Pressure Blood Pressure [Le ft Arm] 180/98 H Blood Pressure [Ri ght Upper Arm] Pulse Oximetry 96 92 [facility] Room Air 07/17/25 02:45 Temperature 98.7 F Pulse Rate Pulse Rate [Pulse Oximeter] 92 Respiratory Rate 18 Blood Pressure Blood Pressure [Le ft Arm] 169/102 H Blood Pressure [Ri ght Upper Arm] Pulse Oximetry 92 Oxygen Delivery Me thod Room Air Labs Labs: Laboratory Results - last 24 hr 07/16/25 07/16/25 15:03 17:30 WBC 16.22 H RBC 4.98 Hgb 14.6 Hct 44.5 MCV 89 MCH 29 MCHC 33 RDW Coeff of Albertina 13.9 Plt Count 271 Neut % (Auto) 94.0 H Lymph % (Auto) 2.5 L [place] % (Auto) 3.1 Eos % (Auto) 0.0 Baso % (Auto) 0.1 Neut # (Auto) 15.20 H Lymph # (Auto) 0.40 L [place] # (Auto) 0.50 Eos # (Auto) 0.00 Baso # (Auto) 0.00 Abs Immat Gran (auto) 0.00 Imm/Tot Granulo (auto) 0.3 Sodium 133 L Potassium 5.8 H 4.9 Chloride 94 L Carbon Dioxide 28 Anion Gap 11 BUN 36 H Creatinine 0.8 Estimated GFR 71 Glucose 132 H Lactate 2.2 H Calcium 10.9 H Total Bilirubin 1.0 AST 48 H ALT 23 Alkaline Phosphatase 82 C-Reactive Protein 1.0 Total Protein 9.1 H Albumin 4.8
[2025-07-17 08:27] LABS: Hematocrit 41.3 % (33.0-51.0); Hemoglobin* 13.5 gm/dL (12.0-16.0); Immature Granulocytes Abs Auto 0.02 K/uL (0.00-0.30); Immature Granulocytes Pct Auto 0.2 %; Mean Corpuscular HGB Conc 33 gm/dL (32-36); Mean Corpuscular Hemoglobin 29 pg (26-34); Mean Corpuscular Volume 90 fL (80-100); RDW Coefficient of Variation % 13.9 % (11.5-15.5); Red Blood Count 4.61 m/uL (4.00-5.20); White Blood Count* 8.53 K/uL (4.50-11.00)
[2025-07-17 08:29] LABS: Lymphocytes Absolute Auto 1.00 K/uL (0.90-2.90)
[2025-07-17 08:30] LABS: Slide Review Reflex No
[2025-07-17] MEDS: LACTATED RINGERS 1000 ML 1,000 ML 75 ML IV ×2 (08:41→20:39)
[2025-07-17] MEDS: METOPROLOL TARTRATE 50 MG TABLET PO ×2 (08:42→20:36)
[2025-07-17 08:44] LABS: Albumin* 4.4 g/dL (3.3-5.0); Chloride* 98 mmol/L (96-114); Potassium* 4.5 mmol/L (3.6-5.1); Sodium* 135 mmol/L (135-149)
[2025-07-17 08:47] LABS: Alanine Aminotransferase* 22 U/L (4-35); Alkaline Phosphatase* 72 U/L (40-150); Anion Gap 7 mEq/L (7-15); Aspartate Amino Transferase* 38 U/L (12-35); Bilirubin Total* 0.8 mg/dL (0.1-1.5); Blood Urea Nitrogen* 24 mg/dL (7-30); Calcium* 10.2 mg/dL (8.4-10.6); Carbon Dioxide* 30 mmol/L (20-32); Creatinine* 0.8 mg/dL (0.5-1.5); Est. Creatinine Clearance* 32.35; Estimated Glomerular Filt Rate 71 ml/min; Glucose* 118 mg/dL (60-115); Total Protein* 8.1 g/dL (6.0-8.3)
[2025-07-17] MEDS: BENZOCAINE/MENTHOL 1 EACH LOZENGE MUCOUS MEM ×3 (11:09→20:04)
--- NOTE | 2025-07-17 12:45 | PM.GSCN ---
History of Present Illness Consult details Date Seen: 07/17/25 Consult date: 07/17/25 Narrative: 89-year-old female with multiple episodes of small-bowel obstruction and 2 small bowel resections was admitted to the hospital with recurrent small-bowel obstruction. I was asked by Dr. Cunningham to see her in consultation. Patient states that 2 days ago after dinner she felt mid abdominal pain. The pain was not going away and patient had nausea. She had normal bowel movements yesterday. However, the pain continue to keep her up at night and she lost appetite. She had nausea after drinking tea. She felt that she was dehydrated and decided to come to the hospital. I personally reviewed her workup in the hospital. Patient was found to have elevated WBC of 16. Her WBC today improved to normal. An abdominal CT was obtained that showed multiple dilated loops of small intestine with a transition point near 1 of her anastomosis. There is a largely dilated segment of small intestine that is most likely related to her previous anastomosis. Review of Systems Narrative: General: no fevers HENT: no problems swallowing CV: no shortness of breath Resp: no cough GI: No nausea, vomiting, abdominal pain : no dysuria, no increased urinary frequency, no hematuria Skin: no new rashes Musculoskeletal: no back pain Neuro: no muscle weakness Psyche: no depression, no anxiety PFSH PFSH Medical History History of small bowel obstruction ?Z87.19 - Personal history of other diseases of the digestive system (ICD-10) Sinus tachycardia (09/21/21) ?R00.0 - Tachycardia, unspecified (ICD-10) Sensorineural hearing loss, 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) ?H90.3 - Sensorineural hearing loss, bilateral (ICD-10) 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) ?M19.012 - Primary osteoarthritis, left shoulder (ICD-10) Dermatophytosis of nail (10/16/07) ?B35.1 - Tinea unguium (ICD-10) DDD (degenerative disc disease), 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) ?M51.34 - Other intervertebral disc degeneration, thoracic region (ICD-10) DDD (degenerative disc disease), lumbar (02/06/23) ?M51.369 - Other intervertebral disc degeneration, lumbar region without mention of lumbar back pain or lower extremity pain (ICD-10) Compression fracture of body of thoracic vertebra (09/07/21) ?S22.000A - Wedge compression fracture of unspecified thoracic vertebra, initial encounter for closed fracture (ICD-10) Chronic hyponatremia (11/15/23) ?E87.1 - Hypo-osmolality and hyponatremia (ICD-10) Unspecified hypothyroidism (04/08/07) ?E03.9 - Hypothyroidism, unspecified (ICD-10) Tendinitis involving right hip abductors (11/14/23) ?M76.891 - Other specified enthesopathies of right lower limb, excluding foot (ICD-10) Steatosis of liver (11/14/23) ?K76.0 - Fatty (change of) liver, not elsewhere classified (ICD-10) Hypertension (11/14/23) ?I10 - Essential (primary) hypertension (ICD-10) History of small bowel obstruction (01/23/25) ?Z87.19 - Personal history of other diseases of the digestive system (ICD-10) Anemia (11/14/23) ?D64.9 - Anemia, unspecified (ICD-10) Osteoarthritis of right hip ?M16.11 - Unilateral primary osteoarthritis, right hip (ICD-10) Tendinitis involving right hip abductors ?M76.891 - Other specified enthesopathies of right lower limb, excluding foot (ICD-10) Steatosis of liver ?K76.0 - Fatty (change of) liver, not elsewhere classified (ICD-10) CKD (chronic kidney disease) ?N18.9 - Chronic kidney disease, unspecified (ICD-10) Partial hamstring tear ?S76.319A - Strain of muscle, fascia and tendon of the posterior muscle group at thigh level, unspecified thigh, initial encounter (ICD-10) Right hip impingement syndrome ?M25.851 - Other specified joint disorders, right hip (ICD-10) Hypertension ?I10 - Essential (primary) hypertension (ICD-10) Left bundle branch block ?I44.7 - Left bundle-branch block, unspecified (ICD-10) Small bowel obstruction ?K56.609 - Unspecified intestinal obstruction, unspecified as to partial versus complete obstruction (ICD-10) Postoperative ileus ?K91.89 - Other postprocedural complications and disorders of digestive system (ICD-10) ?K56.7 - Ileus, unspecified (ICD-10) Postoperative hypoxia ?R09.02 - Hypoxemia (ICD-10) ?Z98.890 - Other specified postprocedural states (ICD-10) Anemia following surgery ?D64.9 - Anemia, unspecified (ICD-10) Strain of right hip ?S76.011A - Strain of muscle, fascia and tendon of right hip, initial encounter (ICD-10) Sigmoid diverticulosis ?K57.30 - Diverticulosis of large intestine without perforation or abscess without bleeding (ICD-10) Arthritis ?M19.90 - Unspecified osteoarthritis, unspecified site (ICD-10) GERD (gastroesophageal reflux disease) ?K21.9 - Gastro-esophageal reflux disease without esophagitis (ICD-10) Atrial fibrillation ?I48.91 - Unspecified atrial fibrillation (ICD-10) Hypothyroid ?E03.9 - Hypothyroidism, unspecified (ICD-10) Surgical History S/P small bowel resection ?Z90.49 - Acquired absence of other specified parts of digestive tract (ICD-10) S/P laparotomy with lysis of adhesions ?Z98.890 - Other specified postprocedural states (ICD-10) 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) ?Z98.890 - Other specified postprocedural states (ICD-10) History of ankle surgery (12/04/92) ?Z98.890 - Other specified postprocedural states (ICD-10) 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 She lives in [place] with her . She does not smoke. She drinks 1 glass of wine a day. Code status is full. What is your current living situation?: I presently have a place to live Problems where you live: no known problems Problems where you live details: none In the past 12 months, utilities in danger of being shut off: no In past 12 months, lack of transportation kept you from medical appts, meetings, work, or getting things needed for daily living: no In the past 12 mos, have been you worried that your food would run out before you had money to buy more?: never true In the past 12 mos, the food you bought just didn't last and you didn't have money to buy more?: never true Highest level of school completed/degree received: Bachelor's degree Smoking Status: Former smoker What tobacco products do you use: cigarettes Smoking quit date/years: >15 years ago Do you use any of these nicotine containing products: None Second hand tobacco smoke exposure: No How often do you have a drink containing alcohol: 2-3 times a week Alcohol type: wine Alcohol type details: occasionally a shana How many standard drinks containing alcohol do you have on a typical day: 1 or 2 How often do you have six or more drinks on one occasion: Never AUDIT-C Alcohol total score: 3 Non-prescribed substance use: denies use Caffeine: Yes How often does anyone, including family, friends and others, physically hurt you: never How often does anyone, including family, friends and others, insult or talk down to you: never How often does anyone, including family, friends and others, threaten you with harm: never How often does anyone, including family, friends and others, scream or curse at you: never service: No Meds Home Medications and Allergies Home Medications ?Medication ?Instructions ?Recorded ?Confirmed ?Type cetirizine 10 mg tablet 10 mg PO HS 08/05/22 07/16/25 History levothyroxine 75 mcg tablet 75 mcg PO DAILY 08/05/22 07/16/25 History lisinopril 5 mg tablet 7.5 mg PO HS 08/05/22 07/16/25 History metoprolol tartrate 50 mg tablet 50 mg PO BID 08/05/22 07/16/25 History multivitamin 1 tab PO DAILY 08/05/22 07/16/25 History omega 8-yhd-jwh-fish oil 60 mg-90 1 cap PO BID 04/12/23 07/16/25 History mg-500 mg capsule (Fish Oil) acetaminophen 500 mg capsule 500 - 1,000 mg PO Q6H PRN 10/28/24 07/16/25 History calcium 500 mg (as 1 tab PO DAILY 02/12/25 07/16/25 History carbonate)-vitamin D3 5 mcg (200 unit) tablet (Calcium 500 + D) cyclobenzaprine 10 mg tablet 10 mg PO TID PRN 02/12/25 07/16/25 History magnesium glycinate 100 mg (as 200 mg PO QHS 02/12/25 07/16/25 History glycinate) tablet (Mag Glycinate) naproxen sodium 220 mg tablet 220 mg PO DAILY 02/12/25 07/16/25 History vitamin A-vitamin C-vit E-min 1 tab PO DAILY 02/12/25 07/16/25 History tablet (Ocutabs tablet) Allergies Allergy/AdvReac Type Severity Reaction Status Date / Time cat dander Allergy Verified 03/14/25 08:20 perfume Allergy Verified 03/14/25 08:20 Exam Narrative: Exam Narrative: General appearance: Alert, cooperative, and in no distress Pulmonary: Chest symmetric, lungs clear bilaterally Cardiovascular Heart: Regular rate and rhythm, S1, S2, no murmurs/rubs/gallops Gastrointestinal Abdominal: soft, mildly distended, tender to palpation in the right mid abdomen, this tenderness is improved when compared to the exam yesterday. No peritoneal signs. Skin: Normal skin color, texture, and turgor. No rashes or lesions. Psychiatric: Alert, cooperative, normal affect. Const: Vital Signs, click to edit/add: Vital Signs - 24 hr 07/16/25 12:51 07/16/25 14:21 07/16/25 18:00 Temperature 97.6 F Pulse Rate 95 Pulse Rate [Pulse Oximeter] 94 Respiratory Rate 16 Blood Pressure Blood Pressure [Le ft Arm] Blood Pressure [Ri ght Upper Arm] 146/77 H Pulse Oximetry 92 96 95 Oxygen Delivery Me thod Room Air 07/16/25 18:02 07/16/25 18:15 07/16/25 18:32 Temperature Pulse Rate 93 89 Pulse Rate [Pulse Oximeter] Respiratory Rate 20 Blood Pressure 189/104 H 183/116 H Blood Pressure [Le ft Arm] Blood Pressure [Ri ght Upper Arm] Pulse Oximetry 91 94 Oxygen Delivery Me thod 07/16/25 18:46 07/16/25 18:50 07/16/25 19:02 Temperature Pulse Rate 103 H Pulse Rate [Pulse Oximeter] Respiratory Rate Blood Pressure 177/103 H 198/122 H Blood Pressure [Le ft Arm] Blood Pressure [Ri ght Upper Arm] Pulse Oximetry 92 Oxygen Delivery Me thod 07/16/25 19:11 07/16/25 20:29 07/16/25 21:21 Temperature 97.3 F L Pulse Rate 100 Pulse Rate [Pulse Oximeter] 103 H Respiratory Rate 18 18 Blood Pressure Blood Pressure [Le ft Arm] 195/119 H Blood Pressure [Ri ght Upper Arm] Pulse Oximetry 89 95 [facility] Room [facility] 07/17/25 00:45 07/17/25 00:45 07/17/25 00:45 Temperature 97.8 F Pulse Rate Pulse Rate [Pulse Oximeter] 77 98 Respiratory Rate 20 16 20 Blood Pressure Blood Pressure [Le ft Arm] 180/98 H Blood Pressure [Ri ght Upper Arm] Pulse Oximetry 96 92 [facility] Room Air 07/17/25 02:45 07/17/25 08:33 07/17/25 08:35 Temperature 98.7 F 98.1 F Pulse Rate Pulse Rate [Pulse Oximeter] 92 87 Respiratory Rate 18 18 18 Blood Pressure Blood Pressure [Le ft Arm] 169/102 H 135/78 Blood Pressure [Ri ght Upper Arm] Pulse Oximetry 92 95 95 Oxygen Delivery Me od Room Air Room Air Room Air 07/17/25 10:53 Temperature 98.9 F Pulse Rate Pulse Rate [Pulse Oximeter] 74 Respiratory Rate 18 Blood Pressure Blood Pressure [Le ft Arm] 135/78 Blood Pressure [Ri ght Upper Arm] Pulse Oximetry 95 [facility] Results Labs Labs: Abnormal lab results 07/16/25 07/17/25 Range/Units 15:03 08:20 WBC 16.22 H (4.50-11.00) K/uL Neut % (Auto) 94.0 H 73.5 H (42.0-72.0) % Lymph % (Auto) 2.5 L 11.5 L (20-44) % [place] % (Auto) 14.0 H (0.0-11.0) % Neut # (Auto) 15.20 H (1.7-7.0) K/uL Lymph # (Auto) 0.40 L (0.90-2.90) K/uL [place] # (Auto) 1.20 H (0.00-0.90) K/UL Sodium 133 L (135-149) mmol/L Potassium 5.8 H (3.6-5.1) mmol/L Chloride 94 L (96-114) mmol/L BUN 36 H (7-30) mg/dL Glucose 132 H 118 H (60-115) mg/dL Lactate 2.2 H (0.5-1.9) mmol/L Calcium 10.9 H (8.4-10.6) mg/dL AST 48 H 38 H (12-35) U/L Total Protein 9.1 H (6.0-8.3) g/dL Diabetes panel 07/16/25 07/16/25 07/17/25 Range/Units 15:03 17:30 08:20 Sodium 133 L 135 (135-149) mmol/L Potassium 5.8 H 4.9 4.5 (3.6-5.1) mmol/L Chloride 94 L 98 (96-114) mmol/L Carbon Dioxide 28 30 (20-32) mmol/L BUN 36 H 24 (7-30) mg/dL Creatinine 0.8 0.8 (0.5-1.5) mg/dL Glucose 132 H 118 H (60-115) mg/dL Calcium 10.9 H 10.2 (8.4-10.6) mg/dL AST 48 H 38 H (12-35) U/L ALT 23 22 (4-35) U/L Alkaline Phosphatase 82 72 (40-150) U/L Total Protein 9.1 H 8.1 (6.0-8.3) g/dL Albumin 4.8 4.4 (3.3-5.0) g/dL Calcium panel 07/16/25 07/17/25 Range/Units 15:03 08:20 Calcium 10.9 H 10.2 (8.4-10.6) mg/dL Albumin 4.8 4.4 (3.3-5.0) g/dL Pituitary panel 07/16/25 07/16/25 07/17/25 Range/Units 15:03 17:30 08:20 Sodium 133 L 135 (135-149) mmol/L Potassium 5.8 H 4.9 4.5 (3.6-5.1) mmol/L Chloride 94 L 98 (96-114) mmol/L Carbon Dioxide 28 30 (20-32) mmol/L BUN 36 H 24 (7-30) mg/dL Creatinine 0.8 0.8 (0.5-1.5) mg/dL Glucose 132 H 118 H (60-115) mg/dL Calcium 10.9 H 10.2 (8.4-10.6) mg/dL Adrenal panel 07/16/25 07/16/25 07/17/25 Range/Units 15:03 17:30 08:20 Sodium 133 L 135 (135-149) mmol/L Potassium 5.8 H 4.9 4.5 (3.6-5.1) mmol/L Chloride 94 L 98 (96-114) mmol/L Carbon Dioxide 28 30 (20-32) mmol/L BUN 36 H 24 (7-30) mg/dL Creatinine 0.8 0.8 (0.5-1.5) mg/dL Glucose 132 H 118 H (60-115) mg/dL Calcium 10.9 H 10.2 (8.4-10.6) mg/dL Total Bilirubin 1.0 0.8 (0.1-1.5) mg/dL AST 48 H 38 H (12-35) U/L ALT 23 22 (4-35) U/L Alkaline Phosphatase 82 72 (40-150) U/L Total Protein 9.1 H 8.1 (6.0-8.3) g/dL Albumin 4.8 4.4 (3.3-5.0) g/dL All other labs normal. Progress Note:A&P Assessment and plan (1) Small bowel obstruction: Status: Acute Plan A 9-year-old female with history of small-bowel obstructions and 2 small bowel resections presents with a recurrent small bowel obstruction. NG tube was placed yesterday and NG had minimal amount of output. Patient had liquid stool today and is passing gas. She states that her pain is better than yesterday. Her nausea has resolved. We will clamp her NG tube and advance diet to sips of clears. We will not remove NG for well and advance diet slowly since patient is still distended.
--- NOTE | 2025-07-17 14:12 | PC.NURSE ---
End of shift [id number]: Pt AxOx4, cooperative, and pleasant with cares. LR currently running @ 75 mL/hr. NG patent and emptying minimal brown tinged output. Ph spot check: 4.5. Tolerating sips and ice chips well. Reports minimal pain to the abdomen that is well controlled with frequent walks in the hallways. Abdomen appearing distended, denies pain with palpation. Indep once removed from suction. Continent of bladder and bowels. Surgeon Sushant instructed sips and chips, and clamping for longer periods. Continuing to assess and evaluate Pt?comfortability and tolerating being clamped.?Pt appears resting with call light in reach. visited today. ?
[2025-07-17] MEDS: CETIRIZINE HCL 10 MG TABLET PO (20:36)
[2025-07-17] MEDS: ENOXAPARIN 40 MG/0.4 ML INJ SUBCUT (20:38)
[2025-07-18] VITALS (8 sets, daily range): BP systolic 146–161; BP diastolic 76–102; PULSE 66–98; RESP 16–18; TEMP 36.4–36.8; O2SAT 92–96
[2025-07-18] MEDS: BENZOCAINE/MENTHOL 1 EACH LOZENGE MUCOUS MEM ×4 (04:28→20:44)
[2025-07-18 06:43] LABS: Hematocrit 35.3 % (33.0-51.0); Hemoglobin* 11.6 gm/dL (12.0-16.0); Immature Granulocytes Abs Auto 0.01 K/uL (0.00-0.30); Immature Granulocytes Pct Auto 0.2 %; Mean Corpuscular HGB Conc 33 gm/dL (32-36); Mean Corpuscular Hemoglobin 30 pg (26-34); Mean Corpuscular Volume 90 fL (80-100); RDW Coefficient of Variation % 13.9 % (11.5-15.5); Red Blood Count 3.91 m/uL (4.00-5.20); White Blood Count* 6.64 K/uL (4.50-11.00)
[2025-07-18 06:46] LABS: Lymphocytes Absolute Auto 1.00 K/uL (0.90-2.90); Slide Review Reflex No
[2025-07-18 06:56] LABS: Albumin* 3.4 g/dL (3.3-5.0); Chloride* 100 mmol/L (96-114); Potassium* 3.5 mmol/L (3.6-5.1); Sodium* 134 mmol/L (135-149)
[2025-07-18] MEDS: LEVOTHYROXINE 75 MCG TABLET PO (06:56)
[2025-07-18 06:59] LABS: Alanine Aminotransferase* 15 U/L (4-35); Alkaline Phosphatase* 60 U/L (40-150); Anion Gap 7 mEq/L (7-15); Aspartate Amino Transferase* 30 U/L (12-35); Bilirubin Total* 0.8 mg/dL (0.1-1.5); Blood Urea Nitrogen* 25 mg/dL (7-30); Calcium* 9.5 mg/dL (8.4-10.6); Carbon Dioxide* 27 mmol/L (20-32); Creatinine* 0.7 mg/dL (0.5-1.5); Est. Creatinine Clearance* 32.79; Estimated Glomerular Filt Rate 84 ml/min; Glucose* 80 mg/dL (60-115); Total Protein* 6.3 g/dL (6.0-8.3)
--- NOTE | 2025-07-18 07:33 | PC.NURSE ---
Pt is alert and oriented x3. Afebrile. Pt had small soft/hard and liquid BM this morning around 0700. Pt reported BM was liquid at first then she had to push a little to get some of it out. Pt reports ?soreness? in throat, managed with PRN Lozenge.?Pt?s NG tube is at ?58? cm and is patent and draining. Pt had 100 ml output from NG [id number].?Pt is up SBA with IV pole, voiding and tolerating an NPO diet with sips and chips. ?
[2025-07-18] MEDS: METOPROLOL TARTRATE 50 MG TABLET PO ×2 (08:05→20:35)
--- NOTE | 2025-07-18 08:36 | PC.NURSE ---
Pt pleasant and cooperative, up ind walking in hallways, NG clamped this morning for medications, tolerating sips of clears declining nausea, some pain 2-3/10 per patient not much.
[2025-07-18] MEDS: LACTATED RINGERS 1000 ML 1,000 ML 75 ML IV ×2 (11:12→23:41)
--- NOTE | 2025-07-18 11:52 | PM.IMPN1 ---
Assessment and Plan Assessment and plan (1) Small bowel obstruction: Problem comment: - recurrent, history below - NG placed 07/16; tolerating trials of clamping + clears - Dr Cunningham of General Surgery following - first SBO 2020 - (only abd surg hx was a Tubal ligation) - JOANA at [facility] - 2021 - [facility]. JOANA - [id number] 3 occurences; conservative tx - 2024 - 02/11 and 02/19 admissions, conservative management. 03/14 admission had lysis of adhesions, small bowel resection, appendectomy by Adrian on 03/19/25 Status: Acute (2) Hyponatremia: Problem comment: - chronic, baseline 130-133, currently 134 Status: Chronic (3) Hypertension: Problem comment: -continue lisinopril and metoprolol (giving orally and clamping NG) -hx of SVT/Afib and is sensitive when metoprolol is held - follow electrolytes, replace K Status: Chronic (4) Hypokalemia: Problem comment: - replace and follow Status: Acute Plan - per above - continue clamping NG as tolerated, slowly advance diet as approved by General Surgery - Lovenox for ppx - daughter updated bedside, questions answered Subjective Date Seen: 07/18/25 Interval history: Brandy is a delightful 89 yo female with a history of recurrent SBO who was admitted to the hospital on 07/16 with another obstruction, focal transition point in central lower abdomen/superior pelvis. Last surgical intervention was 03/18/2025 for lysis of adhesions, small-bowel resection, incidental appendectomy. She had not had a recurrence until this week. No recent illness. NG tube placed upon admission, output has been decreasing. Tolerating trials of clamping (5-6 hours) without nausea, tolerating clears. Dr. Cunningham of General Surgery also following. Exam Narrative: Exam Narrative: GEN: Alert and oriented, nontoxic HEENT: EOMIs bilaterally, no scleral icterus CV: RRR R: LCTA bilaterally without concerning wheezing Ab: Soft, mild distension has improved, + bowel sounds throughout Ext: wwp, no concerning edema Skin: No concerning skin lesions or rashes on exposed skin Neuro: No focal deficits Psych: Appropriate Const: Vital Signs, click to edit/add: Vital Signs - 24 hr 07/17/25 15:00 07/17/25 15:00 07/17/25 15:00 Temperature 99.0 F Pulse Rate [Pulse Oximeter] 77 77 Respiratory Rate 18 18 18 Blood Pressure [Le ft Arm] 151/77 H Pulse Oximetry 96 96 Oxygen Delivery Fl thod Room Air Room Air 07/17/25 19:25 07/18/25 00:00 07/18/25 00:00 Temperature 98.1 F Pulse Rate [Pulse Oximeter] 104 H 84 Respiratory Rate 18 16 Blood Pressure [Le ft Arm] 173/94 H Pulse Oximetry 93 94 [facility] 07/18/25 00:00 07/18/25 03:55 07/18/25 08:05 Temperature 98.0 F 98.0 F Pulse Rate [Pulse Oximeter] 84 98 82 Respiratory Rate 16 16 Blood Pressure [Le ft Arm] 149/77 H 148/76 H Pulse Oximetry 94 93 [facility] Room Air 07/18/25 08:05 07/18/25 08:05 Temperature 97.5 F L Pulse Rate [Pulse Oximeter] 82 Respiratory Rate 16 16 Blood Pressure [Le ft Arm] 161/85 H Pulse Oximetry 92 92 [facility] Room Air Labs Labs: Laboratory Results - last 24 hr 07/18/25 06:09 WBC 6.64 RBC 3.91 L Hgb 11.6 L Hct 35.3 MCV 90 MCH 30 MCHC 33 RDW Coeff of Albertina 13.9 Plt Count 244 Neut % (Auto) 65.7 Lymph % (Auto) 15.4 L [place] % (Auto) 12.8 H Eos % (Auto) 5.6 Baso % (Auto) 0.3 Neut # (Auto) 4.37 Lymph # (Auto) 1.00 [place] # (Auto) 0.80 Eos # (Auto) 0.37 Baso # (Auto) 0.02 Abs Immat Gran (auto) 0.01 Imm/Tot Granulo (auto) 0.2 Sodium 134 L Potassium 3.5 L Chloride 100 Carbon Dioxide 27 Anion Gap 7 BUN 25 Creatinine 0.7 Estimated Creat Clear 32.79 Estimated GFR 84 Glucose 80 Calcium 9.5 Total Bilirubin 0.8 AST 30 ALT 15 Alkaline Phosphatase 60 Total Protein 6.3 Albumin 3.4
--- NOTE | 2025-07-18 13:41 | PM.GSPN ---
Subjective Subjective Date Seen: 07/18/25 Interval history: Patient is doing well. Her abdominal pain is now described as ?soreness?. It is improving. She had a bowel movement today and continues to pass gas. Her abdomen continues to be mildly distended. NG tube put out minimal amount of fluid. Her NG was on clamped overnight and then clamped in the morning. Patient did not have any trouble with nausea or vomiting. Exam Narrative: Exam Narrative: Abdomen is soft, mildly distended, there is some discomfort to palpation in the right mid abdomen but that is improved when compared to yesterday's exam. No peritoneal signs. Const: Vital Signs, click to edit/add: Vital Signs - 24 hr 07/17/25 15:00 07/17/25 15:00 07/17/25 15:00 Temperature 99.0 F Pulse Rate [Pulse Oximeter] 77 77 Respiratory Rate 18 18 18 Blood Pressure [Le ft Arm] 151/77 H Pulse Oximetry 96 96 Oxygen Delivery Me thod Room Air Room Air 07/17/25 19:25 07/18/25 00:00 07/18/25 00:00 Temperature 98.1 F Pulse Rate [Pulse Oximeter] 104 H 84 Respiratory Rate 18 16 Blood Pressure [Le ft Arm] 173/94 H Pulse Oximetry 93 94 Oxygen Delivery Me thod Room Air Room Air 07/18/25 00:00 07/18/25 03:55 07/18/25 08:05 Temperature 98.0 F 98.0 F Pulse Rate [Pulse Oximeter] 84 98 82 Respiratory Rate 16 16 Blood Pressure [Le ft Arm] 149/77 H 148/76 H Pulse Oximetry 94 93 Oxygen Delivery Me thod Room Air Room Air 07/18/25 08:05 07/18/25 08:05 07/18/25 11:48 Temperature 97.5 F L 97.8 F Pulse Rate [Pulse Oximeter] 82 81 Respiratory Rate 16 16 16 Blood Pressure [Le ft Arm] 161/85 H 159/81 H Pulse Oximetry 92 92 95 Oxygen Delivery Me thod Room Air Room Air Room Air Progress Note:A&P Assessment and plan (1) Small bowel obstruction: Status: Acute Plan 89-year-old female admitted to the hospital with recurrent small-bowel obstruction. Patient is doing well. She has return of bowel function and continues to pass gas. Will remove her NG tube and advance her to clears. I discussed with the patient to go slow on clears. Possible discharge home tomorrow.
[2025-07-18] MEDS: POTASSIUM CHLORIDE 10 MEQ/100 ML PIGGYBACK 100 MEQ IVPB ×2 (13:45→14:52)
--- NOTE | 2025-07-18 14:55 | PC.NURSE ---
End of shift [id number]: Pt AxOx4, cooperative, and pleasant with cares. LR currently running @ 75 mL/hr. NG patent and emptying minimal brown tinged output. Tolerating clear sips and ice chips well. Indep once removed from suction. Continent of bladder. Continuing to assess and evaluate Pt?comfortability and tolerating being clamped for longer periods.?Pt reports comfortable during shift. Pt appears resting with call light in reach. Family visited today. ?
[2025-07-18] MEDS: ENOXAPARIN 40 MG/0.4 ML INJ SUBCUT (20:36)
[2025-07-18] MEDS: CETIRIZINE HCL 10 MG TABLET PO (20:36)
[2025-07-18] MEDS: SODIUM CHLORIDE 0.9 % (FLUSH) 10 ML SYRINGE 5 ML IVF (20:39)
--- NOTE | 2025-07-18 23:05 | PC.NURSE ---
end of shift: Pt is AOx4. VSS. Pt. is pleasant and active in her own cares. Pt. AMB frequently IND. RN removed NG; pt. tolerated well. Tolerating clears. Denies nausea. Passing gas. TEDS applied. Pt. resting comfortably, call light w/i reach.
[2025-07-19] VITALS (7 sets, daily range): BP systolic 126–156; BP diastolic 67–92; PULSE 63–82; RESP 16–18; TEMP 36.4–37.2; O2SAT 93–96
[2025-07-19] MEDS: MELATONIN 3 MG TABLET PO ×2 (02:08→22:12)
[2025-07-19 06:22] LABS: Hematocrit 31.3 % (33.0-51.0); Hemoglobin* 10.3 gm/dL (12.0-16.0); Immature Granulocytes Abs Auto 0.01 K/uL (0.00-0.30); Immature Granulocytes Pct Auto 0.2 %; Mean Corpuscular HGB Conc 33 gm/dL (32-36); Mean Corpuscular Hemoglobin 30 pg (26-34); Mean Corpuscular Volume 90 fL (80-100); RDW Coefficient of Variation % 13.4 % (11.5-15.5); Red Blood Count 3.47 m/uL (4.00-5.20); White Blood Count* 5.85 K/uL (4.50-11.00)
[2025-07-19 06:23] LABS: Lymphocytes Absolute Auto 1.00 K/uL (0.90-2.90); Slide Review Reflex No
[2025-07-19 06:32] LABS: Chloride* 99 mmol/L (96-114); Sodium* 130 mmol/L (135-149)
[2025-07-19 06:33] LABS: Potassium* 3.6 mmol/L (3.6-5.1)
[2025-07-19 06:35] LABS: Anion Gap 4 mEq/L (7-15); Blood Urea Nitrogen* 15 mg/dL (7-30); Carbon Dioxide* 27 mmol/L (20-32); Creatinine* 0.6 mg/dL (0.5-1.5); Est. Creatinine Clearance* 32.79; Estimated Glomerular Filt Rate 87 ml/min
[2025-07-19 06:36] LABS: Calcium* 9.0 mg/dL (8.4-10.6); Glucose* 83 mg/dL (60-115)
[2025-07-19] MEDS: LEVOTHYROXINE 75 MCG TABLET PO (07:30)
--- NOTE | 2025-07-19 07:36 | PC.NURSE ---
Pt alert and oriented x3. Afebrile. Pt had no BM overnight. Pt has active bowel sounds. Pt denies pain, SOB, Chest pain and N/V. Pt had difficulties sleeping, managed with PRN melatonin with relief.
[2025-07-19] MEDS: METOPROLOL TARTRATE 50 MG TABLET PO ×2 (09:44→20:48)
[2025-07-19] MEDS: MAGNESIUM IV 2 GM/50 ML PIGGYBACK IVPB (10:21)
--- NOTE | 2025-07-19 11:40 | P.IMPN_ITS ---
Assessment and Plan Assessment and plan (1) Small bowel obstruction: Problem comment: - recurrent, history below - NG placed 07/16; tolerating trials of clamping + clears. NGT out on 07/18, advanced to fulls on 07/19 - continues on maintenance fluids 75 mL, DC when adequate oral intake - passing flatus, active BMs - ambulating frequently - Dr Cunningham of General Surgery following - first SBO 2020 - (only abd surg hx was a Tubal ligation) - JOANA at [facility] - 2021 - [facility]. JOANA - [phone] 3 occurences; conservative tx - 2024 - 02/11 and 02/19 admissions, conservative management. 03/14 admission had lysis of adhesions, small bowel resection, appendectomy by Adrian on 03/19/25 Status: Acute (2) Hyponatremia: Problem comment: - chronic, baseline 130-133, currently 134 - 130 on 07/19, has been NPO other than clears, Ensure ordered Status: Chronic (3) Hypertension: Problem comment: -continue lisinopril and metoprolol (giving orally and clamping NG) -hx of SVT/Afib and is sensitive when metoprolol is held -follow electrolytes, replace K Status: Chronic (4) Hypokalemia: Problem comment: - replace and follow, improving Status: Acute Plan ADAT. Ambulate. Patient is hopeful to discharge Tuesday Total Time Spent Total Time Spent: Today I spent 55 minutes seeing the patient, reviewing Expanse and EPIC notes/diagnostics, discussing the care plan with our care time that includes social work, PT/OT, pharmacy, RT, prison and documenting my impressions and plan in the medical record. Subjective Date Seen: 07/19/25 Interval history: Patient is seen sitting up in bed this morning, at bedside. Reports feeling well. Has been actively walking the unit several times daily. Tolerating clears yesterday. Had 2 bowel movements yesterday and continues to pass gas. Denies headache or dizziness. Denies chest pain or shortness of breath. Feels abdominal distention is improving. Was hoping to be able to go home today but understands she will need a little more time. Hopeful that she can leave tomorrow. Passing gas, BM x2 in 24 hours Tolerating clears Hemoglobin 10.3, down from 14.6 on admission, significant drop but likely dilutional without evidence of acute bleed otherwise, on enoxaparin. Recurrent. Admission hgb could be dehydration as previous hgb typically 11-12, monitor Sodium 130, acute on chronic Exam Narrative: Exam Narrative: PHYSICAL EXAM General: Pleasant, conversant, NAD HEENT: Normocephalic, atraumatic, sclera white, EOMI, oral mucosa moist Cardiovascular: RRR, S1S2. No pitting edema Pulmonary: CTA bilaterally without rhonchi, rales, expiratory wheezes. No dy spnea Abdominal: Soft, mildly distended, nontender, no guarding Neurological: Alert, answering questions appropriately, cranial nerves intact, no focal findings Extremities: No gross joint deformity or swelling. AROMI. Neurovascularly intact Skin: Warm, dry. Const: Vital Signs, click to edit/add: Vital Signs - 24 hr 07/18/25 11:48 07/18/25 15:00 07/18/25 15:00 Temperature 97.8 F Pulse Rate [Pulse Oximeter] 81 87 Respiratory Rate 16 16 18 Blood Pressure [Le ft Arm] 159/81 H Pulse Oximetry 95 96 Oxygen Delivery Me thod Room Air Room Air 07/18/25 15:24 07/18/25 19:00 07/18/25 23:15 Temperature 98.2 F 98 F Pulse Rate [Pulse Oximeter] 75 87 Respiratory Rate 16 18 16 Blood Pressure [Le ft Arm] 146/102 H 149/93 H Pulse Oximetry 96 93 93 Oxygen Delivery Me thod Room Air Room Air Room Air 07/18/25 23:15 07/19/25 02:10 Temperature 98.0 F 98.2 F Pulse Rate [Pulse Oximeter] 66 72 Respiratory Rate 16 16 Blood Pressure [Le ft Arm] 146/85 H 139/67 Pulse Oximetry 96 95 Oxygen Delivery Me thod Room Air Room Air Labs Labs: Laboratory Results - last 24 hr 07/19/25 05:44 WBC 5.85 RBC 3.47 L Hgb 10.3 L Hct 31.3 L MCV 90 MCH 30 MCHC 33 RDW Coeff of Albertina 13.4 Plt Count 214 Neut % (Auto) 65.1 Lymph % (Auto) 17.6 L [place] % (Auto) 11.8 H Eos % (Auto) 5.1 Baso % (Auto) 0.2 Neut # (Auto) 3.81 Lymph # (Auto) 1.00 [place] # (Auto) 0.70 Eos # (Auto) 0.30 Baso # (Auto) 0.01 Abs Immat Gran (auto) 0.01 Imm/Tot Granulo (auto) 0.2 Sodium 130 L Potassium 3.6 Chloride 99 Carbon Dioxide 27 Anion Gap 4 L BUN 15 Creatinine 0.6 Estimated Creat Clear 32.79 Estimated GFR 87 Glucose 83 Calcium 9.0 Magnesium 1.6
--- NOTE | 2025-07-19 13:36 | NUTR.NU ---
Nutrition: Follow up to 07/17/25 nutrition assessment. Diet advanced from clears yesterday to full liquid at lunch today. Visited with patient. She reports feeling pretty good and tolerating slow progression with intake at this time. We reviewed tips related to diet advancement as well as the importance of chewing food well and taking time with eating in a calm environment. Patient expressed appreciation related to the reminders. Declined handouts. Monitor for diet advancement, tolerance and intake. Follow up as needed.
[2025-07-19] MEDS: LACTATED RINGERS 1000 ML 1,000 ML 75 ML IV (14:50)
[2025-07-19] MEDS: BENZOCAINE/MENTHOL 1 EACH LOZENGE MUCOUS MEM (15:43)
[2025-07-19] MEDS: ACETAMINOPHEN 500 MG TABLET 1000 MG PO (16:32)
--- NOTE | 2025-07-19 19:30 | PC.NURSE ---
End of shift [id number] ? Pt alert, oriented, cooperative. Up independently in room and ambulating in halls. Tolerating RA and full liquid diet per MD. Pt reported one instance of nausea, refused medication offered by RN per JAN and reported symptom improvement with no intervention. Pt denied pain and SOB. Reported soreness in her back, given medication per JAN and aqua K pad to improve comfort. Family at bedside. Pt appears to be resting comfortably with call light within reach at end of shift.
[2025-07-19] MEDS: CETIRIZINE HCL 10 MG TABLET PO (20:48)
[2025-07-19] MEDS: ENOXAPARIN 40 MG/0.4 ML INJ SUBCUT (20:49)
[2025-07-20] VITALS (8 sets, daily range): BP systolic 139–179; BP diastolic 72–97; PULSE 68–80; RESP 18–20; TEMP 36.6–36.9; O2SAT 92–97
[2025-07-20] MEDS: LACTATED RINGERS 1000 ML 1,000 ML 75 ML IV (02:49)
--- NOTE | 2025-07-20 06:18 | PC.NURSE ---
Shift note: Pt is doing well ambulated independently several times in hallway. Patient confirmed abdominal bloating after eating. No BM tonight but confirmed passing gas. Alert and oriented. Vitally stable. Patient requested melatonin for sleep which was effective.
[2025-07-20] MEDS: LEVOTHYROXINE 75 MCG TABLET PO (06:46)
[2025-07-20 07:06] LABS: Hematocrit 33.1 % (33.0-51.0); Hemoglobin* 10.8 gm/dL (12.0-16.0); Mean Corpuscular HGB Conc 33 gm/dL (32-36); Mean Corpuscular Hemoglobin 30 pg (26-34); Mean Corpuscular Volume 90 fL (80-100); Red Blood Count 3.66 m/uL (4.00-5.20); White Blood Count* 5.59 K/uL (4.50-11.00)
[2025-07-20 07:11] LABS: Slide Review Reflex Yes
[2025-07-20 07:12] LABS: Slide Review Acceptable Review (Acceptable)
[2025-07-20 07:22] LABS: Chloride* 101 mmol/L (96-114); Sodium* 130 mmol/L (135-149)
[2025-07-20 07:23] LABS: Potassium* 4.2 mmol/L (3.6-5.1)
[2025-07-20 07:26] LABS: Anion Gap 1 mEq/L (7-15); Blood Urea Nitrogen* 13 mg/dL (7-30); Calcium* 8.9 mg/dL (8.4-10.6); Carbon Dioxide* 28 mmol/L (20-32); Creatinine* 0.6 mg/dL (0.5-1.5); Est. Creatinine Clearance* 32.79; Estimated Glomerular Filt Rate 87 ml/min; Glucose* 84 mg/dL (60-115)
--- NOTE | 2025-07-20 08:58 | PM.GSPN ---
Subjective Subjective Date Seen: 07/20/25 Interval history: Patient is slowly recovering. She is passing gas. She feels bloated after eating. She denies nausea or vomiting. Exam Narrative: Exam Narrative: Abdomen distended. Tympanic to percussion, minimally tender to palpation in the right mid abdomen but this is still improved from a few days ago. No peritoneal signs. Const: Vital Signs, click to edit/add: Vital Signs - 24 hr 07/19/25 12:41 07/19/25 15:00 07/19/25 15:00 Temperature 98.2 F 98.4 F Pulse Rate [Pulse Oximeter] 72 77 Respiratory Rate 18 18 Blood Pressure [Le ft Arm] 126/67 139/82 Blood Pressure [Ri ght Arm] Pulse Oximetry 96 93 93 Oxygen Delivery Me thod Room Air Room Air Room Air 07/19/25 19:00 07/19/25 22:12 07/19/25 23:00 Temperature 99 F 98 F Pulse Rate [Pulse Oximeter] 82 63 63 Respiratory Rate 18 18 18 Blood Pressure [Le ft Arm] 151/76 H 156/88 H Blood Pressure [Ri ght Arm] Pulse Oximetry 95 95 Oxygen Delivery Me thod Room Air Room Air 07/19/25 23:00 07/20/25 02:31 07/20/25 06:00 Temperature 98.1 F Pulse Rate [Pulse Oximeter] 68 71 Respiratory Rate 18 18 20 Blood Pressure [Le ft Arm] 146/76 H Blood Pressure [Ri ght Arm] 139/72 Pulse Oximetry 95 92 94 Oxygen Delivery Me thod Room Air Room Air Room Air 07/20/25 07:00 07/20/25 07:00 Temperature Pulse Rate [Pulse Oximeter] 71 Respiratory Rate 20 20 Blood Pressure [Le ft Arm] Blood Pressure [Ri ght Arm] Pulse Oximetry 97 Oxygen Delivery Me thod Room Air Progress Note:A&P Assessment and plan (1) Small bowel obstruction: Status: Acute Plan 89-year-old female admitted to the hospital with small-bowel obstruction resolving with conservative treatment. I discussed with the patient that we will continue with slow advancing her diet. Patient's abdomen is distended but tympanic to percussion and she is passing gas. Not ready discharge home today.
--- NOTE | 2025-07-20 09:02 | PM.IMPN1 ---
Assessment and Plan Assessment and plan (1) Small bowel obstruction: Problem comment: - recurrent, history below - NG placed 07/16; tolerating trials of clamping + clears. NGT out on 07/18, advanced to full liquids on 07/19 - passing flatus, active BMs - ambulating frequently - Dr Cunningham of General Surgery following - first SBO 2020 - (only abd surg hx was a Tubal ligation) - JOANA at [facility] - 2021 - [facility]. JOANA - [phone] 3 occurences; conservative tx - 2024 - 02/11 and 02/19 admissions, conservative management. 03/14 admission had lysis of adhesions, small bowel resection, appendectomy by Adrian on 03/19/25 Status: Acute (2) Hyponatremia: Problem comment: - chronic, baseline 130-133 - tolerating salt and has added some protein supplements Status: Chronic (3) Hypertension: Problem comment: - appropriate control on home doses of Lisinopril and Metoprolol Status: Chronic Plan - continue full liquids, advanced as tolerated - still high risk with distension, some nausea after fulls yesterday, continue conservative diet advancement - likely home tomorrow Subjective Date Seen: 07/20/25 Interval history: Brandy is a delightful 89 yo female with a history of recurrent bowel obstructions, admitted to the hospital on 07/16 with SBO, focal transition point in central lower abdomen/superior pelvis. Last surgical intervention was on 03/18/2025 for lysis of adhesions, small-bowel resection, incidental appendectomy with Dr. Campbell. This is her first SBO since surgery in February. No recent illness or significant diet changes. NG tube placed upon admission, removed 07/18 Having some nausea with po intake, no vomiting. + stools. Dr. Cunningham of General Surgery also following. Exam Narrative: Exam Narrative: GEN: Alert and oriented, nontoxic HEENT: EOMIs bilaterally, no scleral icterus CV: RRR, No concerning murmurs R: LCTA bilaterally without concerning wheezing Ab: Distended, tolerates palpation, bowel sounds noted throughout Ext: wwp, no concerning edema Neuro: Nonfocal Psych: Appropriate Const: Vital Signs, click to edit/add: Vital Signs - 24 hr 07/19/25 12:41 07/19/25 15:00 07/19/25 15:00 Temperature 98.2 F 98.4 F Pulse Rate [Pulse Oximeter] 72 77 Respiratory Rate 18 18 Blood Pressure [Le ft Arm] 126/67 139/82 Blood Pressure [Ri ght Arm] Pulse Oximetry 96 93 93 Oxygen Delivery Me thod Room Air Room Air Room Air 07/19/25 19:00 07/19/25 22:12 07/19/25 23:00 Temperature 99 F 98 F Pulse Rate [Pulse Oximeter] 82 63 63 Respiratory Rate 18 18 18 Blood Pressure [Le ft Arm] 151/76 H 156/88 H Blood Pressure [Ri ght Arm] Pulse Oximetry 95 95 Oxygen Delivery Me thod Room Air Room Air 07/19/25 23:00 07/20/25 02:31 07/20/25 06:00 Temperature 98.1 F Pulse Rate [Pulse Oximeter] 68 71 Respiratory Rate 18 18 20 Blood Pressure [Le ft Arm] 146/76 H Blood Pressure [Ri ght Arm] 139/72 Pulse Oximetry 95 92 94 Oxygen Delivery Me thod Room Air Room Air Room Air 07/20/25 07:00 07/20/25 07:00 Temperature Pulse Rate [Pulse Oximeter] 71 Respiratory Rate 20 20 Blood Pressure [Le ft Arm] Blood Pressure [Ri ght Arm] Pulse Oximetry 97 Oxygen Delivery Me thod Room Air Labs Labs: Laboratory Results - last 24 hr 07/20/25 05:45 WBC 5.59 RBC 3.66 L Hgb 10.8 L Hct 33.1 MCV 90 MCH 30 MCHC 33 Plt Count 170 Diff Slide Review Acceptable Review Sodium 130 L Potassium 4.2 Chloride 101 Carbon Dioxide 28 Anion Gap 1 L BUN 13 Creatinine 0.6 Estimated Creat Clear 32.79 Estimated GFR 87 Glucose 84 Calcium 8.9 Magnesium 1.9
[2025-07-20] MEDS: METOPROLOL TARTRATE 50 MG TABLET PO ×2 (09:10→20:36)
[2025-07-20] MEDS: ACETAMINOPHEN 500 MG TABLET 1000 MG PO (13:16)
--- NOTE | 2025-07-20 18:39 | PC.NURSE ---
Nursing Care Hours: [id number] Pt this shift calm and cooperative, alert and oriented. No pain to abdomen. Pt c/o mid chest soreness' stating it feels like pulled muscle. Treated with PO Tylenol and effective. VSS. Pt passed BM x3. Walking the halls frequently and tolerating advancing diet.
[2025-07-20] MEDS: CETIRIZINE HCL 10 MG TABLET PO (20:36)
[2025-07-20] MEDS: ENOXAPARIN 40 MG/0.4 ML INJ SUBCUT (20:37)
[2025-07-20] MEDS: SODIUM CHLORIDE 0.9 % (FLUSH) 10 ML SYRINGE 5 ML IVF (20:37)
[2025-07-20] MEDS: MELATONIN 3 MG TABLET PO (22:53)
[2025-07-20] MEDS: BENZOCAINE/MENTHOL 1 EACH LOZENGE MUCOUS MEM (22:53)
[2025-07-21 02:20] VITALS: BP 114/55; PULSE 63; RESP 18; TEMP 36.6; O2SAT 93
[2025-07-21 05:52] VITALS: BMI 20.5
--- NOTE | 2025-07-21 06:13 | PC.NURSE ---
Arrived to find the patient sitting in their chair, alert and oriented and vitally stable. Hard of hearing without hearing aids. No pain or nausea reported. Abdominal sounds are hypoactive. The patient reports no difficulty stooling. Tolerating regular diet at this time. CMS intact. Occasional numbness of the bottom of her feet reported when at home. She is able to ambulate safely independently and she has been doing so frequently in her room and in the halls. No major developments overnight.?
[2025-07-21] MEDS: LEVOTHYROXINE 75 MCG TABLET PO (06:58)
[2025-07-21 07:00] VITALS: BP 125/79; PULSE 93; RESP 18; TEMP 36.7; O2SAT 93
[2025-07-21 07:42] LABS: Chloride* 101 mmol/L (96-114); Potassium* 3.7 mmol/L (3.6-5.1); Sodium* 132 mmol/L (135-149)
[2025-07-21 07:45] LABS: Anion Gap 4 mEq/L (7-15); Blood Urea Nitrogen* 12 mg/dL (7-30); Calcium* 9.3 mg/dL (8.4-10.6); Carbon Dioxide* 27 mmol/L (20-32); Creatinine* 0.6 mg/dL (0.5-1.5); Est. Creatinine Clearance* 32.79; Estimated Glomerular Filt Rate 87 ml/min; Glucose* 84 mg/dL (60-115)
--- NOTE | 2025-07-21 09:08 | PM.DS1 ---
DS: Providers Provider Date Seen: 07/21/25 Date of admission: 07/16/25 20:12 Primary care physician: Akila Cerda MD Admitting Clinician: Kathie Varela MD Consults: General Surgery Attending Physician on discharge: Callie Sanchez MD Date of Discharge: 07/21/25 DS: Diagnosis Discharge Diagnosis (1) Small bowel obstruction: Status: Acute Problem details: - recurrent, history below - NG placed 07/16; tolerating trials of clamping + clears. NGT out on 07/18, advanced diet slowly, tolerating low fiber on day of discharge - passing flatus, active BMs - ambulating frequently - Dr Cunningham of General Surgery followed during stay - first SBO 2020 - (only abd surg hx was a Tubal ligation) - [facility] at [facility] - 2021 - [facility]. JOANA - [phone] 3 occurences; conservative tx - 2024 - 02/11 and 02/19 admissions, conservative management. 03/14 admission had lysis of adhesions, small bowel resection, appendectomy by Adrian on 03/19/25 (2) Hyponatremia: Status: Chronic Problem details: - chronic, baseline 130-133 (132 on discharge) - tolerating salt in food, has added some protein supplements (3) Hypertension: Status: Chronic Problem details: - appropriate control on home doses of Lisinopril and Metoprolol DS: Summary Hospital Course Hospital Course: Brandy was admitted to the hospital on 07/16 with a recurrent SBO, focal transition point in central lower abdomen/superior pelvis. Last surgical intervention was on 03/18/2025 for lysis of adhesions, small-bowel resection, incidental appendectomy with Dr. Campbell. This was her first SBO since surgery in February. No recent illness or significant diet changes. NG tube placed upon admission, removed 07/18, slowly advanced diet 2/2 nausea and history. No vomiting during stay, passed stool and flatus prior to discharge. Dr. Cunningham of General Surgery followed during stay, no surgical needs identified. Comorbidities noted above, stable. Brandy was appropriate for discharge home on 07/21/2025 with PCP follow-up. Status at Discharge Functional status at discharge: independent ambulation Overall status at discharge: patient is progressing back to baseline Time Spent with Patient Time attestation: Total time spent providing and/or coordinating discharge services: Time spent: Greater than 30 minutes Specific discharge activities: Medication reconciliation, consultation with General surgery, Education Exam Narrative: Exam Narrative: GEN: Alert and oriented, nontoxic HEENT: EOMIs bilaterally, no scleral icterus CV: RRR, No concerning murmurs R: LCTA bilaterally, breathing comfortably Abdomen: Soft with mild distention, improved. Nontender to palpation, + bowel sounds throughout Ext: wwp, no concerning edema Skin: No concerning skin lesions or rashes on exposed skin Neuro: Nonfocal Psych: Appropriate Const: Vital Signs, click to edit/add: Vital Signs - 24 hr 07/20/25 11:00 07/20/25 15:00 07/20/25 15:00 Temperature Pulse Rate [Pulse Oximeter] 80 Respiratory Rate 18 18 Blood Pressure [Le ft Arm] Blood Pressure [Ri ght Arm] 144/86 H Pulse Oximetry 97 95 Oxygen Delivery Me thod Room Air Room Air 07/20/25 15:00 07/20/25 19:25 07/20/25 22:50 Temperature 98.2 F 98.4 F Pulse Rate [Pulse Oximeter] 76 80 73 Respiratory Rate 20 18 18 Blood Pressure [Le ft Arm] 144/75 H Blood Pressure [Ri ght Arm] 149/78 H 148/74 H Pulse Oximetry 95 93 92 Oxygen Delivery Me thod Room Air Room Air Room Air 07/21/25 02:20 Temperature 97.8 F Pulse Rate [Pulse Oximeter] 63 Respiratory Rate 18 Blood Pressure [Le ft Arm] Blood Pressure [Ri ght Arm] 114/55 L Pulse Oximetry 93 Oxygen Delivery Me thod Room Air DS: Data Data Completed and Pending Completed studies during hospitalization: Procedures Drainage of Stomach with Drainage Device, Via Natural or Artificial Opening (11/06/24) Insertion of Infusion Device into Stomach, Via Natural or Artificial Opening (02/12/25) Release Small Intestine, Open Approach (03/14/25) Resection of Appendix, Open Approach (03/14/25) Resection of Small Intestine, Open Approach (03/14/25) Labs on day of discharge: Labs from last 24 hours 07/21/25 05:50 Sodium 132 L Potassium 3.7 Chloride 101 Carbon Dioxide 27 Anion Gap 4 L BUN 12 Creatinine 0.6 Estimated Creat Clear 32.79 Estimated GFR 87 Glucose 84 Calcium 9.3 Magnesium 1.8 Discharge Plan Discharge Disposition: Home, Self-Care Date of Admission: 07/16/25 20:12 Attending Provider on Discharge: Callie Sanchez Consulting Providers: Bobby Cunningham Primary Care Provider: Akila Cerda Condition: Improved Anticipated Discharge Date/Time: 07/21/25 07:07 Discharge Medications: Continued omega 0-yir-wgs-fish oil [Fish Oil] 60-90-500 mg capsule 1 cap PO BID levothyroxine 75 mcg tablet 75 mcg PO DAILY metoprolol tartrate 50 mg tablet 50 mg PO BID lisinopril 5 mg tablet 7.5 mg PO HS cetirizine 10 mg tablet 10 mg PO HS multivitamin Tablet 1 tab PO DAILY acetaminophen 500 mg capsule 500 - 1,000 mg PO Q6H MDD 3000mg PRN calcium carbonate-vitamin D3 [Calcium 500 + D] 500 mg-5 mcg (200 unit) tablet 1 tab PO DAILY Ocutabs Tablet 1 tab PO DAILY Mag Glycinate 100 mg tablet 200 mg PO QHS cyclobenzaprine 10 mg tablet 10 mg PO TID PRN Held naproxen sodium 220 mg tablet 220 mg PO DAILY Hold Instructions: Can use after full resolution of SBO and tolerating regular diet Discharge Orders: Discharge Order (Routine); Ordered 07/21/25 Ordered By: Callie Sanchez Patient Education: High Protein Diet (DC), Low Fiber Diet (DC) Activity Level: Activity as Tolerated Diet Detail: Low fiber for 5-7 more days, then medium to high fiber. Try to keep protein up if you can (helps with hyponatremia) Follow Up Appointments: Akila Cerda MD [Primary Care Provider, Family Practice] - 07/31/25 11:10 am Referral Note: Forms: [facility] Info Instructions
[2025-07-21] MEDS: METOPROLOL TARTRATE 50 MG TABLET PO (09:34)
[2025-07-21] MEDS: SODIUM CHLORIDE 0.9 % (FLUSH) 10 ML SYRINGE 5 ML IVF (09:35)
--- NOTE | 2025-07-21 14:59 | PC.NURSE ---
Discharge - Pt alert, oriented, cooperative. Up independently in room, tolerating RA and regular diet/fluids. Denies pain, SOB, n/v. D/c education provided with pt verbalizing understanding. IV removed with catheter intact. Pt d/c to home via wheelchair with family member at approximately 1450.
== END 2025-07-21 14:50 | disposition home or self-care (01) | DRG 389 ==
LOC: ED 14:27 → MEDSURG 20:14
PROVIDERS: Family Medicine; Physician Assistant; Admitting Provider Family Medicine; Emergency Provider Family Medicine; PCP Family Medicine; Visit Provider Family Medicine
DX: K56.699 Other intestinal obstruction unspecified as to partial versus complete obstruction (principal); E87.1 Hypo-osmolality and hyponatremia; E86.0 Dehydration; E87.6 Hypokalemia; I12.9 Hypertensive chronic kidney disease with stage 1 through stage 4 chronic kidney disease, or unspecified chronic kidney disease; N18.9 Chronic kidney disease, unspecified; K21.9 Gastro-esophageal reflux disease without esophagitis; I48.91 Unspecified atrial fibrillation; K76.0 Fatty (change of) liver, not elsewhere classified; I44.7 Left bundle-branch block, unspecified; E03.9 Hypothyroidism, unspecified
CPT/HCPCS: 43762; 36415; 74018; 74019; 74177; 80048; 80053; 83605; 83735; 84132; 85025; 85027; 86140; 94761; 99284; 99285; A9270; J1650; J2405; J3475; J3480; J7030; J7120; Q9967